=== PATIENT | female | born 1960 | race Caucasian/White ===

== ENCOUNTER 2017-09-18 10:25 | Inpatient (IN) | payer BC, OTHER ==
[2017-09-18 10:33] VITALS: BMI 47.4
[2017-09-18] MEDS ORDERED: SODIUM CHLORIDE 1,000 ML IV STA ×2 (11:23→14:20)
[2017-09-18] MEDS ORDERED: ONDANSETRON 4 MG/2 ML VIAL IVPUSH ONE (11:23)
[2017-09-18] MEDS ORDERED: ONDANSETRON 4 MG/2 ML VIAL ONE (11:54)
--- NOTE | 2017-09-18 11:55 | PDOC ---
History of Present Illness - General Chief Complaint: Pain, Acute Stated Complaint: SOB, LT LEG PAIN, DIARRHEA Time Seen by Provider: 09/18/17 11:07 History Source: Patient Exam Limitations: No Limitations - History of Present Illness Initial Comments: 09/18/17 11:30 57-year-old female presents to the ED for evaluation of nausea and vomiting diarrhea along with weakness and mild shortness of breath on exertion. Patient also complaining of left leg pain. Patient states her left lower leg started to become tender to touch with noted swelling and redness on Friday and then progressed to worsening symptoms including nausea vomiting and left lower quadrant pain that began on Friday. Patient states unable to tolerate by mouth secondary to nausea and states has history of breast cancer which she states is in remission and history of diabetes with a ranging from 250-300 p.m. Timing/Duration: getting worse Severity: moderate Associated Symptoms: reports: loss of appetite, malaise, nausea/vomiting, shortness of breath, weakness Past History - Travel Traveled outside of the country in the last 30 days: No - Past Medical History Allergies/Adverse Reactions: Allergies Allergy/AdvReac Type Severity Reaction Status Date / Time shellfish derived Allergy Swelling Verified 09/18/17 10:29 Home Medications: Ambulatory Orders Carvedilol 25 mg PO DAILY 10/22/14 Folic Acid - 1 mg PO DAILY 10/22/14 Montelukast Na [Singulair -] 10 mg PO HS 10/22/14 Pregabalin [Lyrica -] 75 mg PO DAILY 10/22/14 Cholecalciferol (Vitamin D3) [Vitamin D3] 50,000 unit PO WEEKLY 01/26/16 Tamoxifen Citrate 20 mg PO DAILY 05/24/16 Insulin Regular 25 units SQ ASDIR 09/20/16 Albuterol 0.083% Nebulizer Page [Ventolin 0.083% Nebulizer Soln -] 1 amp NEB DAILY 09/18/17 Atorvastatin Ca [Lipitor] 20 mg PO HS 09/18/17 Budesonide/Formeterol Fumarate [SYMBICORT 160/4.5mcg -] 1 inh PO BID 09/18/17 Enalapril Maleate [Vasotec] 20 mg PO DAILY 09/18/17 Furosemide [Lasix] 40 mg PO DAILY 09/18/17 Hydroxychloroquine Sulfate [Plaquenil] 200 mg PO DAILY 09/18/17 Mesalamine [Pentasa] 500 mg PO DAILY 09/18/17 Methotrexate Sodium [Methotrexate] 2.5 mg PO DAILY 09/18/17 Pantoprazole Sodium [Protonix] 40 mg PO DAILY 09/18/17 Anemia: Yes Asthma: Yes CVA: No COPD: No Diabetes: Yes HTN: Yes Hypercholesterolemia: Yes Other medical history: RA - Surgical History Abdominal Surgery: Yes (cholycystectomy) Appendectomy: Yes Cholecystectomy: Yes - Suicide/Smoking/Psychosocial Hx Smoking History: Never smoked Have you smoked in the past 12 months: No Information on smoking cessation initiated: No Hx Alcohol Use: No Drug/Substance Use Hx: No Substance Use Type: None Patient Lives Alone: No Review of Systems - Review of Systems Able to Perform ROS?: No Constitutional: Yes: Chills, Loss of Appetite, Malaise, Weakness. No: Unintentional Wgt. Loss Respiratory: Yes: SOB with Exertion Cardiac (ROS): No: Symptoms Reported ABD/GI: Yes: Diarrhea, Nausea, Poor Appetite, Poor Fluid Intake, Vomiting, Abdominal cramping. No: Constipated : No: Symptoms Reported Musculoskeletal: No: Symptoms Reported Integumentary: Yes: Erythema Neurological: No: Symptoms reported Endocrine: Yes: See HPI Hematologic/Lymphatic: No: Symptoms Reported *Physical Exam - Vital Signs Last Vital Signs Temp Pulse Resp BP Pulse Ox 98.6 F 77 18 171/75 100 09/18/17 10:31 09/18/17 10:31 09/18/17 10:31 09/18/17 10:31 09/18/17 10:31 - Physical Exam General Appearance: Yes: Nourished, Appropriately Dressed. No: Apparent Distress HEENT: positive: EOMI, FOX, TMs Normal. negative: Pharynx Normal (dry) Neck: positive: Supple Respiratory/Chest: positive: Lungs Clear, Normal Breath Sounds. negative: Respiratory Distress, Accessory Muscle Use Cardiovascular: positive: Regular Rhythm, Regular Rate. negative: Murmur Gastrointestinal/Abdominal: positive: Normal Bowel Sounds, Soft, Distended ( mild generalized), Tenderness (left lower quadrant with deep palpation) Musculoskeletal: negative: CVA Tenderness Extremity: positive: Normal Capillary Refill, Pedal Edema (2+ pitting to left lower extremity. Lower aspect of left leg with erythema and increased warmth) Integumentary: positive: Warm, Erythema Neurologic: positive: Normal Mood/Affect, Motor Strength 08/23 ED Treatment Course - LABORATORY CBC & Chemistry Diagram: 09/18/17 12:00 09/18/17 12:00 Medical Decision Making - Medical Decision Making 09/18/17 12:18 Pt with complaints of nausea vomiting diarrhea left lower quadrant cramping since Friday associated also with left lower extremity redness swelling and tenderness since Friday. Patient exam appears dehydrated and concerning for cellulitis and electrolyte derangement. Patient with history of cancer in secondary to swelling of left lower extremity will rule out DVT. Patient also ordered for abdominal pelvic CT secondary to left lower quadrant pain to rule out colitis diverticulitis or infection/mass. 09/18/17 13:19 Laboratory Tests 04/03/16 04/03/16 04/04/16 07:59 07:59 06:00 WBC Hgb 7.6 L 8.3 L Hct Neutrophils % Sodium Potassium Chloride Carbon Dioxide Anion Gap BUN Creatinine 1.6 H Lactic Acid Magnesium AST ALT Lipase Urine Protein Urine Glucose (UA) Ur Leukocyte Esterase Urine WBC (Auto) Urine RBC (Auto) 04/04/16 09/18/17 09/18/17 06:00 12:00 12:00 WBC 7.3 Hgb 8.1 L Hct 24.8 L Neutrophils % 86.9 H Sodium 139 Potassium 4.1 Chloride 103 Carbon Dioxide 26 Anion Gap 10 BUN 25 H Creatinine 1.5 H 2.3 H Lactic Acid Magnesium 2.5 H AST 22 ALT 21 Lipase 194 Urine Protein Urine Glucose (UA) Ur Leukocyte Esterase Urine WBC (Auto) Urine RBC (Auto) 09/18/17 09/18/17 12:00 12:00 WBC Hgb Hct Neutrophils % Sodium Potassium Chloride Carbon Dioxide Anion Gap BUN Creatinine Lactic Acid 1.5 Magnesium AST ALT Lipase Urine Protein 3+ H Urine Glucose (UA) 3+ H Ur Leukocyte Esterase Negative Urine WBC (Auto) 3 Urine RBC (Auto) None Receiving IV fluids. We'll check BGM for evaluation of glucose. I've also had a VBG and acetone to rule out DKA. 09/18/17 14:23 DVT study negative. Patient ordered for second liter of normal saline secondary to elevated BGM reading out of range. Will wait for acetone and VBG results. Patient will be given a dose of clindamycin IV secondary to cellulitis 09/18/17 14:53 Laboratory Tests 09/18/17 09/18/17 13:55 14:10 VBG pH 7.42 Acetone, Qual Trace H Patient ordered for second BGM and 6 units of regular insulin 09/18/17 17:31 CT shows a partial imaging or nonspecific density within the left breast essentially as discussed above. Umbilical hernia noted without bowel obstruction. Patient with small bilateral adrenal nodules probably represent any adenomas recommending him follow-up imaging 3 months. There is no obvious intrinsic bowel pathology noted. Patient will be admitted to [facility] [place] secondary to acute on chronic renal sufficiency, cellulitis,weakness, and borderline DKA. 09/18/17 17:34 09/18/17 17:43 BGM 405. Patient ordered for another 6 units of insulin. Report given to hospitalist. Patient admitted to [facility] [place] inpatient. *DC/Admit/Observation/Transfer Diagnosis at time of Disposition: Cellulitis, Diabetes, Acute on chronic renal insufficiency, Nausea & vomiting, Umbilical hernia - Discharge Dispostion Decision to Admit order: Yes - Referrals Referrals: Zachary Rogel MD [Primary Care Provider] - - Patient Instructions - Post Discharge Activity
[2017-09-18 12:24] LABS: URINE APPEARANCE CLEAR; URINE BILIRUBIN NEGATIVE (<2.0 mg/dL); URINE BLOOD NEGATIVE (NEGATIVE); URINE COLOR STRAW; URINE GLUCOSE (UA) 3+ (NEGATIVE); URINE KETONE NEGATIVE (NEGATIVE); URINE LEUK ESTERASE NEGATIVE (NEGATIVE); URINE NITRITE NEGATIVE (NEGATIVE); URINE UROBILINOGEN NEGATIVE mg/dL (0.2-1.0)
[2017-09-18 12:30] LABS: URINE PROTEIN 3+ (NEGATIVE)
[2017-09-18 12:32] LABS: EOS % 1.3 % (0-4.5); HEMATOCRIT 24.8 % (32.4-45.2); HEMOGLOBIN 8.1 GM/dL (10.7-15.3); LYMPH % 7.9 % (8-40); MCHC 32.6 g/dl (32.0-36.0); MEAN CELL VOLUME 79.8 fl (80-96); MEAN PLT VOLUME 9.2 fl (7.5-11.1); MONO % 2.9 % (3.8-10.2); NEUT % 86.9 % (42.8-82.8); PLATELET COUNT 180 K/MM3 (134-434); RDW 18.1 % (11.6-15.6); WHITE BLOOD COUNT 7.3 K/mm3 (4.0-10.0)
[2017-09-18 12:37] LABS: EPI CELLS RARE /HPF (FEW)
[2017-09-18 12:55] LABS: ALBUMIN 2.6 g/dl (3.4-5.0); ALK PHOS 66 U/L (45-117); ANION GAP 10 (8-16); BILIRUBIN,TOTAL 0.5 mg/dL (0.2-1.0); BLOOD UREA NITROGEN 25 mg/dL (7-18); CALCIUM 9.1 mg/dL (8.5-10.1); CHLORIDE 103 mmol/L (98-107); CO2 26 mmol/L (21-32); CREATININE 2.3 mg/dL (0.55-1.02); LIPASE 194 U/L (73-393); MAGNESIUM 2.5 mg/dL (1.8-2.4); POTASSIUM 4.1 mmol/L (3.5-5.1); SGOT/AST 22 U/L (15-37); SGPT/ALT 21 U/L (12-78); SODIUM 139 mmol/L (136-145)
[2017-09-18 12:57] LABS: GLUCOSE,RANDOM 452 mg/dL (74-106)
[2017-09-18 14:19] LABS: VENOUS PC02 37.2 mmHg (38-52); VENOUS PH 7.42 (7.32-7.42)
[2017-09-18 14:20] LABS: VENOUS PO2 31.7 mmHg (28-48)
[2017-09-18] MEDS ORDERED: CLINDAMYCIN IVPB 300 MG in DEXTROSE 5%-WATER - 48 ML IVPB ONE (14:29)
[2017-09-18] MEDS ORDERED: CLINDAMYCIN 300 MG PREMIX IVPB 300 MG/50 ML BAG IVPB ONE (14:36)
[2017-09-18] MEDS ORDERED: INSULIN REGULAR HUMAN 100 UNITS/ML *VIAL SQ ONE ×2 (14:37→17:44)
[2017-09-18] MEDS ORDERED: INSULIN REGULAR HUMAN 100 UNITS/ML *VIAL ONE ×2 (16:09→17:56)
--- NOTE | 2017-09-18 17:51 | PDOC ---
*Physical Exam - Vital Signs Last Vital Signs Temp Pulse Resp BP Pulse Ox 98.1 F 68 16 158/70 99 09/18/17 15:02 09/18/17 15:02 09/18/17 15:02 09/18/17 15:02 09/18/17 15:02 - Physical Exam General Appearance: Yes: Appropriately Dressed HEENT: positive: Normal ENT Inspection, Lesions Respiratory/Chest: positive: Lungs Clear, Normal Breath Sounds Cardiovascular: positive: Regular Rhythm, Regular Rate, S1, S2 Gastrointestinal/Abdominal: positive: Normal Bowel Sounds, Soft, Other (obese abd nontender.) Musculoskeletal: positive: Normal Inspection, Other (left leg swelling erythema to mid johnson. left heel ulcer). negative: CVA Tenderness Extremity: positive: Normal Capillary Refill, Swelling, Erythema Integumentary: positive: Rash, Swelling, Other (left heel ulcer, left leg cellulitis changes no crepitus) Neurologic: positive: Fully Oriented, Alert, Normal Mood/Affect ED Treatment Course - LABORATORY CBC & Chemistry Diagram: 09/18/17 12:00 09/18/17 12:00 - ADDITIONAL ORDERS Additional order review: Laboratory Results 09/18/17 09/18/17 09/18/17 14:10 13:55 12:00 VBG pH 7.42 POC VBG pCO2 37.2 L POC VBG pO2 31.7 Mixed VBG HCO3 23.7 Sodium Potassium Chloride Carbon Dioxide Anion Gap BUN Creatinine Creat Clearance w eGFR Random Glucose Lactic Acid 1.5 Calcium Magnesium Total Bilirubin AST ALT Alkaline Phosphatase Total Protein Albumin Lipase Urine Color Urine Appearance Urine pH Ur Specific Atco Urine Protein Urine Glucose (UA) Urine Ketones Urine Blood Urine Nitrite Urine Bilirubin Urine Urobilinogen Ur Leukocyte Esterase Urine WBC (Auto) Urine RBC (Auto) Ur Epithelial Cells Acetone, Qual Trace H 09/18/17 09/18/17 12:00 12:00 VBG pH POC VBG pCO2 POC VBG pO2 Mixed VBG HCO3 Sodium 139 Potassium 4.1 Chloride 103 Carbon Dioxide 26 Anion Gap 10 BUN 25 H Creatinine 2.3 H Creat Clearance w eGFR 21.93 Random Glucose 452 H* Lactic Acid Calcium 9.1 Magnesium 2.5 H Total Bilirubin 0.5 AST 22 ALT 21 Alkaline Phosphatase 66 Total Protein 7.0 Albumin 2.6 L Lipase 194 Urine Color Straw Urine Appearance Clear Urine pH 7.0 Ur Specific Atco 1.013 Urine Protein 3+ H Urine Glucose (UA) 3+ H Urine Ketones Negative Urine Blood Negative Urine Nitrite Negative Urine Bilirubin Negative Urine Urobilinogen Negative Ur Leukocyte Esterase Negative Urine WBC (Auto) 3 Urine RBC (Auto) None Ur Epithelial Cells Rare Acetone, Qual 09/18/17 12:00 RBC 3.10 L MCV 79.8 L MCHC 32.6 RDW 18.1 H MPV 9.2 Neutrophils % 86.9 H Lymphocytes % 7.9 L D Monocytes % 2.9 L Eosinophils % 1.3 Basophils % 1.0 D - Medications Given in the ED: ED Medications Discontinued Medications Generic Name Dose Route Start Last Admin Trade Name Freq PRN Reason Stop Dose Admin Sodium Chloride 1,000 mls @ 1,000 mls/hr 09/18/17 11:23 09/18/17 11:33 Normal Saline - IV 09/18/17 12:22 1,000 mls/hr ASDIR STA Administration Sodium Chloride 1,000 mls @ 1,000 mls/hr 09/18/17 14:20 09/18/17 14:26 Normal Saline - IV 09/18/17 15:19 1,000 mls/hr ASDIR STA Administration Clindamycin Phosphate 300 mg/ 50 mls @ 100 mls/hr 09/18/17 14:29 09/18/17 16: 45 Dextrose IVPB 09/18/17 14:58 Not Given ONCE ONE Protocol Clindamycin Phosphate 300 mg in 50 mls @ 100 mls/hr 09/18/17 14:36 09/18/17 15:15 Cleocin 300 Mg Premix Ivpb IVPB 09/18/17 14:58 100 mls/hr ONCE ONE Administration Protocol Insulin Human Regular 6 units 09/18/17 14:37 09/18/17 16:11 Novolin R Vial *For Ivpush Or Iv Drip Only* SQ 09/18/17 14:38 6 units ONCE ONE Administration Ondansetron HCl 4 mg 09/18/17 11:23 09/18/17 11:33 Zofran Injection IVPUSH 09/18/17 11:24 4 mg ONCE ONE Administration Oxycodone/Acetaminophen 1 combo 09/18/17 13:52 09/18/17 13:55 Percocet 5/325 - PO 09/18/17 13:53 1 combo ONCE ONE Administration Medical Decision Making - Medical Decision Making 09/18/17 17:45 57 yo F h/o HTN HLD DM obesity asthma here with 4 days n/v/d. pt states did not take insulin today due to inability to eat. also c/o left leg swelling and redness for few days. has had a left heel ulcer. no f/c no mod factors. no cp no sob. on exam pt awake alert abd soft nontender. obese. ext left leg erythema, left heel ulcer. 2 + dp/ pt pulses. plan treat for hyperglycemia, infection abd ct a/p pt seen and examined with Renata Culver, agree with her assessment and plan. *DC/Admit/Observation/Transfer Diagnosis at time of Disposition: Cellulitis, Diabetes, Acute on chronic renal insufficiency, Nausea & vomiting, Umbilical hernia - Referrals Referrals: Zachary Rogel MD [Primary Care Provider] - - Patient Instructions - Post Discharge Activity
--- NOTE | 2017-09-18 17:59 | HP ---
CHIEF COMPLAINT: nausea, vomiting, diarrhea PCP: none HISTORY OF PRESENT ILLNESS: This is a 57 year old female with PMHx of breast cancer s/p radiation, DM, HTN, hyperlipidemia, asthma, rheumatoid arthritis, who presented to the ED with nausea, vomiting, diarrhea x4 days and left leg erythema. The patient denies any sick contacts. She reports that about 4 days ago she began experiencing non- bloody vomitus and diarrhea. The patient reports that since she has been vomiting she has not taken any of her medications or insulins for 4 days. She also reports that on August 02 she had a pedicure and they removed callus on her b/l heels. She states since then, she has had a left heel non-healing wound and since this past weekend has noticed erythema moving up her left leg. She denies any fever or chills. She denies any chest pain, palpitations, headache, dizziness, syncope, urinary symptoms. ER course was notable for: (1) Temp 98.6, pulse 77, BP 171/75, resp 18, O2 100% on RA (2) Hgb 8.1, Cr 2.3, glucose 451 (3) LLE doppler negative for DVT (4) CTAP Recent Travel: denies PAST MEDICAL HISTORY: as above Social History: Smoking: denies Alcohol: denies Drugs: denies Family History: Allergies shellfish derived Allergy (Verified 09/18/17 10:29) Swelling HOME MEDICATIONS: Home Medications Medication Instructions Recorded Carvedilol 25 mg PO DAILY 10/22/14 Folic Acid - 1 mg PO DAILY 10/22/14 Montelukast Na [Singulair -] 10 mg PO HS 10/22/14 Pregabalin [Lyrica -] 75 mg PO DAILY 10/22/14 Cholecalciferol (Vitamin D3) 50,000 unit PO WEEKLY 01/26/16 [Vitamin D3] Tamoxifen Citrate 20 mg PO DAILY 05/24/16 Insulin Regular 25 units SQ ASDIR 09/20/16 Albuterol 0.083% Nebulizer Page 1 amp NEB DAILY 09/18/17 [Ventolin 0.083% Nebulizer Soln -] Atorvastatin Ca [Lipitor] 20 mg PO HS 09/18/17 Budesonide/Formeterol Fumarate 1 inh PO BID 09/18/17 [SYMBICORT 160/4.5mcg -] Enalapril Maleate [Vasotec] 20 mg PO DAILY 09/18/17 Furosemide [Lasix] 40 mg PO DAILY 09/18/17 Hydroxychloroquine Sulfate 200 mg PO DAILY 09/18/17 [Plaquenil] Mesalamine [Pentasa] 500 mg PO DAILY 09/18/17 Methotrexate Sodium [Methotrexate] 2.5 mg PO DAILY 09/18/17 Pantoprazole Sodium [Protonix] 40 mg PO DAILY 09/18/17 REVIEW OF SYSTEMS CONSTITUTIONAL: Absent: fever, chills, diaphoresis, generalized weakness, malaise, loss of appetite, weight change HEENT: Absent: rhinorrhea, nasal congestion, throat pain, throat swelling, difficulty swallowing, mouth swelling, ear pain, eye pain, visual changes CARDIOVASCULAR: Absent: chest pain, syncope, palpitations, irregular heart rate, lightheadedness , peripheral edema RESPIRATORY: Absent: cough, shortness of breath, dyspnea with exertion, orthopnea, wheezing, stridor, hemoptysis GASTROINTESTINAL: Absent: abdominal pain, abdominal distension, nausea, vomiting, diarrhea, constipation, melena, hematochezia GENITOURINARY: Absent: dysuria, frequency, urgency, hesitancy, hematuria, flank pain, genital pain MUSCULOSKELETAL: Absent: myalgia, arthralgia, joint swelling, back pain, neck pain SKIN: Absent: rash, itching, pallor HEMATOLOGIC/IMMUNOLOGIC: Absent: easy bleeding, easy bruising, lymphadenopathy, frequent infections ENDOCRINE: Absent: unexplained weight gain, unexplained weight loss, heat intolerance, cold intolerance NEUROLOGIC: Absent: headache, focal weakness or paresthesias, dizziness, unsteady gait, seizure, mental status changes, bladder or bowel incontinence PSYCHIATRIC: Absent: anxiety, depression, suicidal or homicidal ideation, hallucinations. PHYSICAL EXAMINATION Vital Signs - 24 hr 09/18/17 09/18/17 10:31 15:02 Temperature 98.6 F 98.1 F Pulse Rate 77 Pulse Rate [ 68 Apical] Respiratory 18 16 Rate Blood Pressure 171/75 Blood Pressure 158/70 [Left Arm] O2 Sat by Pulse 100 99 Oximetry (%) GENERAL: Awake, alert, and fully oriented, in no acute distress, obese HEAD: Normal with no signs of trauma. EYES: Pupils equal, round and reactive to light, extraocular movements intact, sclera anicteric, conjunctiva clear. No lid lag. EARS, NOSE, THROAT: Ears normal, nares patent, oropharynx clear without exudates. Moist mucous membranes. LUNGS: Breath sounds equal, clear to auscultation bilaterally. No wheezes, and no crackles. No accessory muscle use. HEART: Regular rate and rhythm, normal S1 and S2 ABDOMEN: Soft, nontender, normoactive bowel sounds, no guarding, no rebound, no masses. MUSCULOSKELETAL: Normal range of motion at all joints. No bony deformities or tenderness. No CVA tenderness. UPPER EXTREMITIES: 2+ pulses, warm, well-perfused. No cyanosis. No clubbing. No peripheral edema. LOWER EXTREMITIES: LLE erythema. Left heel with callus, no drainage noted. 2+ B/ l lower extremity pitting edema. 2+ pulses, warm NEUROLOGICAL: Cranial nerves II-XII intact. Normal speech. PSYCHIATRIC: Cooperative. Good eye contact. Appropriate mood and affect. SKIN: Warm, dry, normal turgor, no rashes or lesions noted, normal capillary refill. Laboratory Results - last 24 hr 09/18/17 09/18/17 09/18/17 12:00 12:00 12:00 WBC 7.3 RBC 3.10 L Hgb 8.1 L Hct 24.8 L MCV 79.8 L MCH 26.0 MCHC 32.6 RDW 18.1 H Plt Count 180 D MPV 9.2 Neutrophils % 86.9 H Lymphocytes % 7.9 L D Monocytes % 2.9 L Eosinophils % 1.3 Basophils % 1.0 D Nucleated RBC % 0 VBG pH POC VBG pCO2 POC VBG pO2 Mixed VBG HCO3 Sodium 139 Potassium 4.1 Chloride 103 Carbon Dioxide 26 Anion Gap 10 BUN 25 H Creatinine 2.3 H Creat Clearance w eGFR 21.93 POC Glucometer Random Glucose 452 H* Lactic Acid Calcium 9.1 Magnesium 2.5 H Total Bilirubin 0.5 AST 22 ALT 21 Alkaline Phosphatase 66 Total Protein 7.0 Albumin 2.6 L Lipase 194 Urine Color Straw Urine Appearance Clear Urine pH 7.0 Ur Specific [place] 1.013 Urine Protein 3+ H Urine Glucose (UA) 3+ H Urine Ketones Negative Urine Blood Negative Urine Nitrite Negative Urine Bilirubin Negative Urine Urobilinogen Negative Ur Leukocyte Esterase Negative Urine WBC (Auto) 3 Urine RBC (Auto) None Ur Epithelial Cells Rare Acetone, Qual 09/18/17 09/18/17 09/18/17 12:00 13:55 14:10 WBC RBC Hgb Hct MCV MCH MCHC RDW Plt Count MPV Neutrophils % Lymphocytes % Monocytes % Eosinophils % Basophils % Nucleated RBC % VBG pH 7.42 POC VBG pCO2 37.2 L POC VBG pO2 31.7 Mixed VBG HCO3 23.7 Sodium Potassium Chloride Carbon Dioxide Anion Gap BUN Creatinine Creat Clearance w eGFR POC Glucometer Random Glucose Lactic Acid 1.5 Calcium Magnesium Total Bilirubin AST ALT Alkaline Phosphatase Total Protein Albumin Lipase Urine Color Urine Appearance Urine pH Ur Specific [place] Urine Protein Urine Glucose (UA) Urine Ketones Urine Blood Urine Nitrite Urine Bilirubin Urine Urobilinogen Ur Leukocyte Esterase Urine WBC (Auto) Urine RBC (Auto) Ur Epithelial Cells Acetone, Qual Trace H 09/18/17 17:34 WBC RBC Hgb Hct MCV MCH MCHC RDW Plt Count MPV Neutrophils % Lymphocytes % Monocytes % Eosinophils % Basophils % Nucleated RBC % VBG pH POC VBG pCO2 POC VBG pO2 Mixed VBG HCO3 Sodium Potassium Chloride Carbon Dioxide Anion Gap BUN Creatinine Creat Clearance w eGFR POC Glucometer > 400 Random Glucose Lactic Acid Calcium Magnesium Total Bilirubin AST ALT Alkaline Phosphatase Total Protein Albumin Lipase Urine Color Urine Appearance Urine pH Ur Specific [place] Urine Protein Urine Glucose (UA) Urine Ketones Urine Blood Urine Nitrite Urine Bilirubin Urine Urobilinogen Ur Leukocyte Esterase Urine WBC (Auto) Urine RBC (Auto) Ur Epithelial Cells Acetone, Qual Assessment: This is a 57 year old female with PMHx of breast cancer s/p radiation, DM, HTN, hyperlipidemia, asthma, rheumatoid arthritis, who presented to the ED with nausea, vomiting, diarrhea x4 days and left leg erythema. Plan: 1) Nausea/vomiting/diarrhea - Likely gastroenteritis - F/u stool cultures - Clear liquid diet - Continue to monitor 2) [place] on CKD? - Baseline Cr around 1.7 from 2016, may have worsened since then - F/u urine electrolytes - Hold enalapril for now given renal function - F/u nephrology consult 3) Left leg cellulitis - Likely 2/2 pedicure she had on August 02 - Received Clindamycin in the ED - Patient will be evaluated by Dr. Clarita louie for further abx recommendations 3) Chronic anemia - Monitor H/H Visit type - Emergency Visit Emergency Visit: Yes ED Registration Date: 09/18/17 Care time: The patient presented to the Emergency Department on the above date and was hospitalized for further evaluation of their emergent condition. - New Patient This patient is new to me today: No - Critical Care Critical Care patient: No Hospitalist Screening - Colonoscopy Questionnaire Colonoscopy Questionnaire: Colonoscopy Questionnaire - Patient: 50 - 75 years old and never had a screening colonoscopy: Unknown History of colon or rectal polyps, or CA: Unknown History of IBD, Crohn's disease or UC: Unknown History of abdominal radiation therapy as a child: Unknown - Relative: 1 with colon or rectal CA, or polyps at age 60 or younger: Unknown Colon or rectal CA diagnosed at age 45 or younger: Unknown Multiple relatives with colon or rectal CA: Unknown - Outcome: Screening Result: Negative Screen
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
[2017-09-18] MEDS ORDERED: ERTAPENEM SODIUM 1 GM in SODIUM CHLORIDE 50 ML IVPB SCH (20:00)
[2017-09-18] MEDS ORDERED: MONTELUKAST NA 10 MG TABLET ONE (22:31)
[2017-09-18] MEDS ORDERED: ATORVASTATIN CA 40 MG TABLET (FP) ONE (22:31)
[2017-09-18] MEDS: MONTELUKAST NA 10 MG TABLET PO SCH (22:36)
[2017-09-18] MEDS: ATORVASTATIN CA 20 MG TABLET (FP) PO SCH (22:36)
[2017-09-18] MEDS: BUDESONIDE/FORMETEROL FUMARATE 160/4.5 mcg INHALER IH SCH (22:47)
[2017-09-19] MEDS ORDERED: oxyCODONE HCL 5 MG TABLET PO PRN (03:26)
[2017-09-19] MEDS: oxyCODONE HCL 5 MG TABLET PO PRN ×2 (03:52→10:51)
[2017-09-19 07:27] LABS: BASO % 0.9 % (0-2.0); EOS % 3.7 % (0-4.5); HEMATOCRIT 20.3 % (32.4-45.2); LYMPH % 10.4 % (8-40); MCH 26.8 pg (25.7-33.7); MCHC 33.4 g/dl (32.0-36.0); MEAN CELL VOLUME 80.1 fl (80-96); MEAN PLT VOLUME 8.8 fl (7.5-11.1); MONO % 3.3 % (3.8-10.2); NEUT % 81.7 % (42.8-82.8); PLATELET COUNT 163 K/MM3 (134-434); RBC 2.53 M/mm3 (3.60-5.2); WHITE BLOOD COUNT 7.5 K/mm3 (4.0-10.0)
[2017-09-19 07:37] LABS: HEMOGLOBIN 6.8 GM/dL (10.7-15.3)
[2017-09-19 08:43] LABS: CHLORIDE 107 mmol/L (98-107); POTASSIUM 3.8 mmol/L (3.5-5.1); SODIUM 141 mmol/L (136-145)
[2017-09-19 08:45] LABS: HEMATOCRIT 21.2 % (32.4-45.2); MCH 26.4 pg (25.7-33.7); MEAN PLT VOLUME 8.7 fl (7.5-11.1); PLATELET COUNT 166 K/MM3 (134-434); RBC 2.65 M/mm3 (3.60-5.2); RDW 18.2 % (11.6-15.6); WHITE BLOOD COUNT 7.4 K/mm3 (4.0-10.0)
[2017-09-19 09:08] LABS: ALBUMIN 2.2 g/dl (3.4-5.0); ALK PHOS 57 U/L (45-117); ANION GAP 10 (8-16); BILIRUBIN,TOTAL 0.4 mg/dL (0.2-1.0); BLOOD UREA NITROGEN 19 mg/dL (7-18); CALCIUM 8.7 mg/dL (8.5-10.1); CO2 24 mmol/L (21-32); CREATININE 1.9 mg/dL (0.55-1.02); GLUCOSE,RANDOM 300 mg/dL (74-106); SGOT/AST 21 U/L (15-37); SGPT/ALT 18 U/L (12-78); TOT PROT 6.1 g/dl (6.4-8.2)
[2017-09-19] MEDS: INSULIN SLIDING SCALE (NOVOLOG) 1 VIAL SQ SCH ×4 (09:53→21:42)
--- NOTE | 2017-09-19 09:53 | PN ---
Progress Note (short form) - Note Progress Note: Subjective: The patient was seen and examined at the bedside, she reports one episode of diarrhea this morning. She states improvement in her lower extremity swelling and erythema. She denies any nausea or vomiting. Current Medications Generic Name Dose Route Start Last Admin Trade Name Freq PRN Reason Stop Dose Admin Albuterol Sulfate 1 amp 09/19/17 10:00 Ventolin 0.083% Nebulizer Soln - NEB DAILY [facility] Atorvastatin Calcium 20 mg 09/18/17 22:00 09/18/17 22:36 Lipitor - PO 20 mg HS [facility] Administration Bacitracin 1 applic 09/19/17 10:00 Bacitracin - TP DAILY [facility] Budesonide/Formoterol Fumarate 1 puff 09/18/17 22:00 09/18/17 22:47 Symbicort 160/4.5mcg - IH 1 pfu BID [facility] Administration Carvedilol 25 mg 09/19/17 10:00 Coreg - PO DAILY [facility] Docusate Sodium 100 mg 09/19/17 10:00 Colace - PO DAILY [facility] Folic Acid 1 mg 09/19/17 10:00 Folic Acid - PO DAILY [facility] Furosemide 40 mg 09/19/17 10:00 Lasix - PO DAILY [facility] Hydroxychloroquine Sulfate 200 mg 09/19/17 10:00 Plaquenil - PO DAILY [facility] Ertapenem 1 gm/ Sodium 100 mls @ 100 mls/hr 09/18/17 20:00 Chloride IVPB DAILY [facility] Protocol Insulin Aspart 1 vial 09/19/17 11:00 Novolog Vial Sliding Scale - SQ ACHS [facility] Protocol Methotrexate 20 mg 09/21/17 10:00 Mexate - PO Q7D [facility] Montelukast Sodium 10 mg 09/18/17 22:00 09/18/17 22:36 Singulair - PO 10 mg HS [facility] Administration Non-Formulary Medication 500 mg 09/19/17 10:00 Mesalamine [Pentasa] PO DAILY [facility] Oxycodone HCl 5 mg 09/19/17 03:46 09/19/17 03:52 Roxicodone - PO 5 mg Q6H PRN Administration PAIN LEVEL 7 - 10 Pantoprazole Sodium 40 mg 09/19/17 10:00 Protonix - PO DAILY [facility] Pregabalin 75 mg 09/19/17 10:00 Lyrica - PO DAILY [facility] Tamoxifen Citrate 20 mg 09/19/17 10:00 Tamoxifen Citrate PO DAILY [facility] Objective: Vital Signs Period Temp Pulse Resp BP Sys/Ronquillo Pulse Ox Last 24 Hr 98.0 F-99.1 F 68-86 16-20 137-171/58-75 94-100 Physical Exam: General: NAD, A&Ox3 Lungs: CTA bilaterally Heart: RRR, S1S2 Abd: Soft, non-tender, non-distended. Normoactive bowel sounds Ext: B/l lower extremity 1+ pitting edema. Improvement in LLE erythema, remains tender on johnson and foot. Left heel callus with no fluctuance or bogginess Neuro: No focal deficits CBCD WBC 7.4 K/mm3 (4.0-10.0) 09/19/17 08:12 RBC 2.65 M/mm3 (3.60-5.2) L 09/19/17 08:12 Hgb 7.0 GM/dL (10.7-15.3) L 09/19/17 08:12 Hct 21.2 % (32.4-45.2) L 09/19/17 08:12 MCV 80.0 fl (80-96) 09/19/17 08:12 MCHC 33.0 g/dl (32.0-36.0) 09/19/17 08:12 RDW 18.2 % (11.6-15.6) H 09/19/17 08:12 Plt Count 166 K/MM3 (134-434) 09/19/17 08:12 MPV 8.7 fl (7.5-11.1) 09/19/17 08:12 CMP Sodium 141 mmol/L (136-145) 09/19/17 06:30 Potassium 3.8 mmol/L (3.5-5.1) 09/19/17 06:30 Chloride 107 mmol/L (98-107) 09/19/17 06:30 Carbon Dioxide 24 mmol/L (21-32) 09/19/17 06:30 Anion Gap 10 (8-16) 09/19/17 06:30 BUN 19 mg/dL (7-18) H 09/19/17 06:30 Creatinine 1.9 mg/dL (0.55-1.02) H 09/19/17 06:30 Creat Clearance w eGFR 27.34 (>60) 09/19/17 06:30 Random Glucose 300 mg/dL (74-106) H 09/19/17 06:30 Calcium 8.7 mg/dL (8.5-10.1) 09/19/17 06:30 Total Bilirubin 0.4 mg/dL (0.2-1.0) 09/19/17 06:30 AST 21 U/L (15-37) 09/19/17 06:30 ALT 18 U/L (12-78) 09/19/17 06:30 Alkaline Phosphatase 57 U/L (45-117) 09/19/17 06:30 Total Protein 6.1 g/dl (6.4-8.2) L 09/19/17 06:30 Albumin 2.2 g/dl (3.4-5.0) L 09/19/17 06:30 Assessment: This is a 57 year old female with PMHx of breast cancer s/p radiation, DM, HTN, hyperlipidemia, asthma, rheumatoid arthritis, who presented to the ED with nausea, vomiting, diarrhea x4 days and left leg erythema. Plan: 1) Nausea/vomiting/diarrhea - Likely gastroenteritis - F/u stool cultures - Denies any nausea or vomiting - Advance diet as tolerated - Continue to monitor 2) [place] on CKD? - Baseline Cr around 1.7 from 2015, may have worsened since then - Cr 1.9 today - F/u urine electrolytes - Hold enalapril for now given renal function - F/u nephrology consult 3) Left leg cellulitis - Likely 2/2 pedicure she had on August 02 - Received Clindamycin in the ED - Continue Ertapenem 3) Chronic anemia - Hgb 6.8 this AM, repeat was 7 - Recheck this afternoon, if Hgb <7, will order PRBC transfusion 4) DM - BGM ACHS - ISS ACHS 5) Asthma - Continue prn albuterol neb - Continue Symbicort 6) RA - Continue home medications 7) F/E/N: - Full liquid diet, advance as tolerated - Monitor electrolytes 8) Prophylaxis: - SCDs bilaterally - Will start chemical DVT prophylaxis once repeat CBC shows stable Hgb 9) Dispo: - Requires continued inpatient care CODE STATUS: FULL CODE Visit type - Emergency Visit Emergency Visit: Yes ED Registration Date: 09/18/17 Care time: The patient presented to the Emergency Department on the above date and was hospitalized for further evaluation of their emergent condition. - New Patient This patient is new to me today: No - Critical Care Critical Care patient: No
[2017-09-19] MEDS ORDERED: CARVEDILOL 25 MG TABLET (FP) PO SCH (10:00)
[2017-09-19] MEDS ORDERED: ENALAPRIL MALEATE 10 MG TABLET (FP) PO SCH (10:00)
[2017-09-19] MEDS ORDERED: PREGABALIN 50 MG CAPSULE PO SCH (10:00)
[2017-09-19] MEDS ORDERED: HYDROXYCHLOROQUINE SO4 200 MG TABLET (FP) PO SCH (10:00)
[2017-09-19] MEDS ORDERED: PATIENT'S OWN MEDICATION (NON-FORMULARY) (Mesalamine [Pentasa] 500 MG) PO SCH (10:00)
[2017-09-19] MEDS ORDERED: ALBUTEROL SO4 0.083% IH SOL 2.5 MG/3 ML VIAL.NEB. NEB SCH (10:00)
[2017-09-19] MEDS ORDERED: METHOTREXATE 2.5 MG TABLET PO SCH (10:00)
[2017-09-19] MEDS ORDERED: FUROSEMIDE 40 MG TABLET (FP) PO SCH ×2 (10:00→22:00)
[2017-09-19] MEDS ORDERED: PT OWN MED DRAWER 7, Y5N ONE (10:37)
[2017-09-19] MEDS ORDERED: PREGABALIN 75 MG CAPSULE PO SCH (10:40)
[2017-09-19] MEDS: BACITRACIN 15 GM TUBE TOPICAL OINTMENT TP SCH (10:46)
[2017-09-19] MEDS: DOCUSATE SODIUM 100 MG CAPSULE (FP) PO SCH (10:47)
[2017-09-19] MEDS: FOLIC ACID 1 MG TABLET (FP) PO SCH (10:47)
[2017-09-19] MEDS: PANTOPRAZOLE 40 MG TABLET (FP) PO SCH (10:48)
[2017-09-19] MEDS: BUDESONIDE/FORMETEROL FUMARATE 160/4.5 mcg INHALER IH SCH ×2 (10:53→21:26)
[2017-09-19 12:37] LABS: URINE CREATININE 75.3 mg/dL (20-320)
[2017-09-19 14:13] LABS: HEMATOCRIT 21.9 % (32.4-45.2); HEMOGLOBIN 7.1 GM/dL (10.7-15.3); MCHC 32.2 g/dl (32.0-36.0); MEAN CELL VOLUME 80.6 fl (80-96); MEAN PLT VOLUME 9.1 fl (7.5-11.1); PLATELET COUNT 166 K/MM3 (134-434); RBC 2.72 M/mm3 (3.60-5.2); RDW 18.4 % (11.6-15.6); WHITE BLOOD COUNT 6.6 K/mm3 (4.0-10.0)
--- NOTE | 2017-09-19 14:32 | PN ---
Progress Note, Physician History of Present Illness: leg starting to look much better swelling has decreased patient feels better still pain - Current Medication List Current Medications: Active Medications Albuterol Sulfate (Ventolin 0.083% Nebulizer Soln -) 1 amp NEB Q6H PRN PRN Reason: SHORT OF BREATH/WHEEZING Atorvastatin Calcium (Lipitor -) 20 mg PO HS [facility] Last Admin: 09/18/17 22:36 Dose: 20 mg Bacitracin (Bacitracin -) 1 applic TP DAILY [facility] Last Admin: 09/19/17 10:46 Dose: 1 applic Budesonide/Formoterol Fumarate (Symbicort 160/4.5mcg -) 1 puff IH BID [facility] Last Admin: 09/19/17 10:53 Dose: 1 pfu Carvedilol (Coreg -) 25 mg PO BID [facility] Docusate Sodium (Colace -) 100 mg PO DAILY [facility] Last Admin: 09/19/17 10:47 Dose: Not Given Folic Acid (Folic Acid -) 1 mg PO DAILY [facility] Last Admin: 09/19/17 10:47 Dose: 1 mg Furosemide (Lasix -) 40 mg PO BID [facility] Hydroxychloroquine Sulfate (Plaquenil -) 400 mg PO BID [facility] Ertapenem 1 gm/ Sodium (Chloride) 100 mls @ 100 mls/hr IVPB DAILY [facility]; Protocol Insulin Aspart (Novolog Vial Sliding Scale -) 1 vial SQ ACHS [facility]; Protocol Last Admin: 09/19/17 13:14 Dose: 10 units Methotrexate (Mexate -) 20 mg PO Gerardo@1000 [facility] Montelukast Sodium (Singulair -) 10 mg PO HS [facility] Last Admin: 09/18/17 22:36 Dose: 10 mg Non-Formulary Medication (Mesalamine [Pentasa]) 1,000 mg PO QID [facility] Oxycodone HCl (Roxicodone -) 5 mg PO Q6H PRN PRN Reason: PAIN LEVEL 7 - 10 Last Admin: 09/19/17 10:51 Dose: 5 mg Pantoprazole Sodium (Protonix -) 40 mg PO DAILY [facility] Last Admin: 09/19/17 10:48 Dose: 40 mg Pregabalin (Lyrica -) 75 mg PO TID [facility] Tamoxifen Citrate (Tamoxifen Citrate) 20 mg PO DAILY [facility] - Objective Vital Signs: Vital Signs Temperature 98.5 F 09/19/17 13:45 Pulse Rate 68 06/01/18 13:45 Respiratory Rate 20 09/19/17 13:45 Blood Pressure 134/54 09/19/17 13:45 O2 Sat by Pulse Oximetry (%) 94 L 09/19/17 00:33 Constitutional: Yes: Calm, Mild Distress, Obese Cardiovascular: Yes: S1, S2 Respiratory: Yes: Regular, CTA Bilaterally Gastrointestinal: Yes: Normal Bowel Sounds, Soft Musculoskeletal: Yes: WNL Extremities: Yes: Calf Tenderness, Erythema, Other Integumentary: Yes: Erythema (improving) Neurological: Yes: Alert, Oriented Psychiatric: Yes: Alert, Oriented Labs: CBC, BMP 09/19/17 13:45 09/19/17 06:30 Assessment/Plan 57 year old female with PMHx of breast cancer s/p radiation, DM, HTN, hyperlipidemia, asthma, rheumatoid arthritis, who presented to the ED with nausea, vomiting, diarrhea x4 days and left leg erythema. Nausea/vomiting/diarrhea [place] Left leg cellulitis Chronic anemia edema of the left leg plan continue ertapenam elevation of the leg running very low h and h rest as per the team
[2017-09-19] MEDS: ERTAPENEM SODIUM 1 GM in SODIUM CHLORIDE 100 ML IVPB SCH (14:40)
[2017-09-19] MEDS: TAMOXIFEN CITRATE 10 MG TABLET PO SCH (14:41)
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
[2017-09-19] MEDS: PREGABALIN 75 MG CAPSULE PO SCH ×2 (15:13→21:25)
[2017-09-19] MEDS: ENALAPRIL MALEATE 10 MG TABLET (FP) PO SCH ×2 (16:29→21:25)
--- NOTE | 2017-09-19 16:53 | PN ---
Teaching Attending Note Name of Resident: Jayson Castaneda (Nephrology) ATTENDING PHYSICIAN STATEMENT I saw and evaluated the patient. I reviewed the resident's note and discussed the case with the resident. I agree with the resident's findings and plan as documented. SUBJECTIVE: This is a 57 year old woman with PMhx of CKD Stage 3 (baseline Cr ~1.7), IDDM, Hypertension, Breast Ca on Tamoxifin, RA who presented with LE redness and pain and N/V and found to have [place] on CKD with Cr of 2.3. Pt follows with a outpatient professional security officer at [facility]. Reports feeling better s/p IVF and Abx. No CP , sob, Abd pain. No dysuria. had diarrhea this am. ACEi and Lasix were initially held. Denies any NSAID use or contrast exposure. PMhx: as above Family Hx: NC social HX: No T/A/D ROS: as per HPI Home Medications Medication Instructions Recorded Carvedilol 25 mg PO BID 10/22/14 Folic Acid - 2 mg PO DAILY 10/22/14 Montelukast Na [Singulair -] 10 mg PO HS 10/22/14 Pregabalin [Lyrica -] 75 mg PO TID 10/22/14 Cholecalciferol (Vitamin D3) 50,000 unit PO WEEKLY 01/26/16 [Vitamin D3] Tamoxifen Citrate 20 mg PO DAILY 05/24/16 Insulin Regular 25 units SQ ASDIR 09/20/16 Albuterol 0.083% Nebulizer Page 1 amp NEB DAILY 09/18/17 [Ventolin 0.083% Nebulizer Soln -] Atorvastatin Ca [Lipitor] 20 mg PO HS 09/18/17 Budesonide/Formeterol Fumarate 1 inh PO BID 09/18/17 [SYMBICORT 160/4.5mcg -] Enalapril Maleate [Vasotec] 20 mg PO BID 09/18/17 Furosemide [Lasix] 80 mg PO BID 09/18/17 Hydroxychloroquine Sulfate 400 mg PO BID 09/18/17 [Plaquenil] Mesalamine [Pentasa] 1,000 mg PO QID 09/18/17 Methotrexate Sodium [Methotrexate] 20 mg PO WEEKLY 09/18/17 Pantoprazole Sodium [Protonix] 40 mg PO DAILY 09/18/17 Potassium Chloride 10 meq PO DAILY 09/19/17 OBJECTIVE: Vital Signs Temperature 98.5 F 09/19/17 13:45 Pulse Rate 68 09/19/17 13:45 Respiratory Rate 20 09/19/17 13:45 Blood Pressure 134/54 09/19/17 13:45 O2 Sat by Pulse Oximetry (%) 94 L 09/19/17 00:33 Intake & Output 09/16/17 09/17/17 09/18/17 09/19/17 23:59 23:59 23:59 23:59 Intake Total 380 Balance 380 Weight 133.356 kg 133.356 kg NAD awake and alert No JVD, Neck supple Dry MM RRR Obese NT/ND + LE edema CBC, BMP 09/19/17 13:45 09/19/17 06:30 Current Medications Albuterol Sulfate (Ventolin 0.083% Nebulizer Soln -) 1 amp NEB Q6H PRN PRN Reason: SHORT OF BREATH/WHEEZING Atorvastatin Calcium (Lipitor -) 20 mg PO HS [facility] Last Admin: 09/18/17 22:36 Dose: 20 mg Bacitracin (Bacitracin -) 1 applic TP DAILY [facility] Last Admin: 09/19/17 10:46 Dose: 1 applic Budesonide/Formoterol Fumarate (Symbicort 160/4.5mcg -) 1 puff IH BID [facility] Last Admin: 09/19/17 10:53 Dose: 1 pfu Carvedilol (Coreg -) 25 mg PO BID [facility] Docusate Sodium (Colace -) 100 mg PO DAILY [facility] Last Admin: 09/19/17 10:47 Dose: Not Given Enalapril Maleate (Vasotec -) 20 mg PO BID [facility] Last Admin: 09/19/17 16:29 Dose: 20 mg Folic Acid (Folic Acid -) 1 mg PO DAILY [facility] Last Admin: 09/19/17 10:47 Dose: 1 mg Hydroxychloroquine Sulfate (Plaquenil -) 400 mg PO BID [facility] Ertapenem 1 gm/ Sodium (Chloride) 100 mls @ 100 mls/hr IVPB DAILY [facility]; Protocol Last Admin: 09/19/17 14:40 Dose: 100 mls/hr Insulin Aspart (Novolog Vial Sliding Scale -) 1 vial SQ ACHS [facility]; Protocol Last Admin: 09/19/17 16:33 Dose: 8 units Methotrexate (Mexate -) 20 mg PO Gerardo@1000 [facility] Montelukast Sodium (Singulair -) 10 mg PO HS [facility] Last Admin: 09/18/17 22:36 Dose: 10 mg Non-Formulary Medication (Mesalamine [Pentasa]) 1,000 mg PO QID [facility] Oxycodone HCl (Roxicodone -) 5 mg PO Q6H PRN PRN Reason: PAIN LEVEL 7 - 10 Last Admin: 09/19/17 10:51 Dose: 5 mg Pantoprazole Sodium (Protonix -) 40 mg PO DAILY [facility] Last Admin: 09/19/17 10:48 Dose: 40 mg Pregabalin (Lyrica -) 75 mg PO TID [facility] Last Admin: 09/19/17 15:13 Dose: Not Given Tamoxifen Citrate (Tamoxifen Citrate) 20 mg PO DAILY [facility] Last Admin: 09/19/17 14:41 Dose: 20 mg ASSESSMENT AND PLAN: 57 year old woman with PMhx of CKD Stage 3 (baseline Cr ~1.7), IDDM, Hypertension, Breast Ca on Tamoxifin, RA who presented with LE redness and pain and N/V and found to have [place] on CKD with Cr of 2.3. #[place] on CKD #CKD Stage 3 #Proteinuria #LE cellulitis #Hypertension #LE edema Etiology of [place] likely due to intravascular volume depletion +/- gloumelar hypoprofusion in setting of diarrhea/infection/MAGALY/diuretics renal function now near baseline can restart ACEi, withhold diuretics for now as per had diarrhea continue Abx as per ID check urine studies goal BP < 140/90, monitor on ACEi Thank you Will follow Riley Rashid DO
[2017-09-19] MEDS: ACETAMINOPHEN 650 MG/20.3 ML ORAL SOLUTION (CUPS) PO PRN (20:48)
[2017-09-19] MEDS: HYDROXYCHLOROQUINE SO4 200 MG TABLET (FP) PO SCH (21:24)
[2017-09-19] MEDS: MONTELUKAST NA 10 MG TABLET PO SCH (21:24)
[2017-09-19] MEDS: ATORVASTATIN CA 20 MG TABLET (FP) PO SCH (21:25)
[2017-09-19] MEDS: CARVEDILOL 25 MG TABLET (FP) PO SCH (21:25)
[2017-09-20] MEDS: oxyCODONE HCL 5 MG TABLET PO PRN ×2 (00:17→22:05)
[2017-09-20] MEDS: PREGABALIN 75 MG CAPSULE PO SCH ×3 (05:36→22:01)
[2017-09-20] MEDS: INSULIN SLIDING SCALE (NOVOLOG) 1 VIAL SQ SCH ×4 (06:03→22:03)
[2017-09-20 08:11] LABS: SERUM IRON SATURATION 18 % (15-55); TOTAL IRON BINDING CAPACITY 175 ug/dL (250-450); TRANSFERRIN 145 mg/dL (200-370); UIBC 144 ug/dL (131-425)
[2017-09-20 08:14] LABS: BASO % 1.3 % (0-2.0); HEMATOCRIT 20.7 % (32.4-45.2); MCH 26.3 pg (25.7-33.7); MCHC 32.7 g/dl (32.0-36.0); MEAN CELL VOLUME 80.4 fl (80-96); MEAN PLT VOLUME 8.6 fl (7.5-11.1); MONO % 7.8 % (3.8-10.2); NEUT % 70.9 % (42.8-82.8); PLATELET COUNT 178 K/MM3 (134-434); RBC 2.57 M/mm3 (3.60-5.2); WHITE BLOOD COUNT 5.7 K/mm3 (4.0-10.0)
--- NOTE | 2017-09-20 08:16 | PN ---
Progress Note (short form) - Note Progress Note: c/o hunger. states abdominal pain and nausea has resolved. had 1 soft BM yesterday AM and no repeat afterwards. has hx of anemia with multiple blood transfusions. continues to have pain in the L leg but feels much improved. denies Cp, SOB, fever, chills, N/V/C/D Current Medications Generic Name Dose Route Start Last Admin Trade Name Freq PRN Reason Stop Dose Admin Acetaminophen 650 mg 09/19/17 20:33 09/19/17 20:48 Tylenol Oral Solution - PO 650 mg Q6H PRN Administration PAIN LEVEL 1 - 3 Albuterol Sulfate 1 amp 09/19/17 12:57 Ventolin 0.083% Nebulizer Soln - NEB Q6H PRN SHORT OF BREATH/WHEEZING Atorvastatin Calcium 20 mg 09/18/17 22:00 09/19/17 21:25 Lipitor - PO 20 mg HS VINCE Administration Bacitracin 1 applic 09/19/17 10:00 09/19/17 10:46 Bacitracin - TP 1 applic DAILY VINCE Administration Budesonide/Formoterol Fumarate 1 puff 09/18/17 22:00 09/19/17 21:26 Symbicort 160/4.5mcg - IH 1 pfu BID VINCE Administration Carvedilol 25 mg 09/19/17 22:00 09/19/17 21:25 Coreg - PO 25 mg BID VINCE Administration Docusate Sodium 100 mg 09/19/17 10:00 09/19/17 10:47 Colace - PO Not Given DAILY [facility]INCE Enalapril Maleate 20 mg 09/19/17 15:17 09/19/17 21:25 Vasotec - PO 20 mg BID VINCE Administration Folic Acid 1 mg 09/19/17 10:00 09/19/17 10:47 Folic Acid - PO 1 mg DAILY [facility]CE Administration Hydroxychloroquine Sulfate 400 mg 09/19/17 22:00 09/19/17 21:24 Plaquenil - PO 400 mg BID VINCE Administration Ertapenem 1 gm/ Sodium 100 mls @ 100 mls/hr 09/18/17 20:00 09/19/17 14:40 Chloride IVPB 100 mls/hr DAILY [facility]INCE Administration Protocol Insulin Aspart 1 vial 09/19/17 11:00 09/20/17 06:03 Novolog Vial Sliding Scale - SQ 6 units ACHS VINCE Administration Protocol Methotrexate 20 mg 09/21/17 10:00 Mexate - PO Gerardo@1000 [facility] Montelukast Sodium 10 mg 09/18/17 22:00 09/19/17 21:24 Singulair - PO 10 mg HS VINCE Administration Non-Formulary Medication 1,000 mg 09/19/17 14:00 Mesalamine [Pentasa] PO QID [facility] Oxycodone HCl 5 mg 09/19/17 03:46 09/20/17 00:17 Roxicodone - PO 5 mg Q6H PRN Administration PAIN LEVEL 7 - 10 Pantoprazole Sodium 40 mg 09/19/17 10:00 09/19/17 10:48 Protonix - PO 40 mg DAILY [facility]INCE Administration Pregabalin 75 mg 09/19/17 14:00 09/20/17 05:36 Lyrica - PO 75 mg TID VINCE Administration Tamoxifen Citrate 20 mg 09/19/17 10:00 09/19/17 14:41 Tamoxifen Citrate PO 20 mg DAILY [facility]INCE Administration Last Vital Signs Temp Pulse Resp BP Pulse Ox 98.7 F 72 20 144/59 96 09/20/17 06:00 09/20/17 06:00 09/20/17 06:00 09/20/17 06:00 09/19/17 21:00 General NAD CV S1 S2 RRR no murmur/rub/gallop Lungs CTA B/L no wheezing/rales/rhonchi Abdomen soft NT/ND obese Extremities LLE hot and very tender, 1+ pitting edema and very faint circumferential erythema. trace pitting edema RLE not tender or warm CBCD WBC 5.7 K/mm3 (4.0-10.0) 09/20/17 07:00 RBC 2.57 M/mm3 (3.60-5.2) L 09/20/17 07:00 Hgb 6.8 GM/dL (10.7-15.3) L* 09/20/17 07:00 Hct 20.7 % (32.4-45.2) L 09/20/17 07:00 MCV 80.4 fl (80-96) 09/20/17 07:00 MCHC 32.7 g/dl (32.0-36.0) 09/20/17 07:00 RDW 18.0 % (11.6-15.6) H 09/20/17 07:00 Plt Count 178 K/MM3 (134-434) 09/20/17 07:00 MPV 8.6 fl (7.5-11.1) 09/20/17 07:00 CMP Sodium 141 mmol/L (136-145) 09/19/17 06:30 Potassium 3.8 mmol/L (3.5-5.1) 09/19/17 06:30 Chloride 107 mmol/L (98-107) 09/19/17 06:30 Carbon Dioxide 24 mmol/L (21-32) 09/19/17 06:30 Anion Gap 10 (8-16) 09/19/17 06:30 BUN 19 mg/dL (7-18) H 09/19/17 06:30 Creatinine 1.9 mg/dL (0.55-1.02) H 09/19/17 06:30 Creat Clearance w eGFR 27.34 (>60) 09/19/17 06:30 Calcium 8.7 mg/dL (8.5-10.1) 09/19/17 06:30 Total Bilirubin 0.4 mg/dL (0.2-1.0) 09/19/17 06:30 AST 21 U/L (15-37) 09/19/17 06:30 ALT 18 U/L (12-78) 09/19/17 06:30 Alkaline Phosphatase 57 U/L (45-117) 09/19/17 06:30 Total Protein 6.1 g/dl (6.4-8.2) L 09/19/17 06:30 Albumin 2.2 g/dl (3.4-5.0) L 09/19/17 06:30 Microbiology 09/18/17 12:00 Blood - Peripheral Venous Blood Culture - Preliminary NO GROWTH OBTAINED AFTER 24 HOURS, INCUBATION TO CONTINUE FOR 4 DAYS. 09/18/17 12:00 Blood - Peripheral Venous Blood Culture - Preliminary NO GROWTH OBTAINED AFTER 24 HOURS, INCUBATION TO CONTINUE FOR 4 DAYS. A/P 57yo F wtih PMH breast ca s/p RTx, DM, HTN, dyslipidemia, asthma and RA presented to the ER with nausea, vomiting and diarrhea x4 days and found to have LLE cellulitis after pedicure 1. Nausea and vomiting- likely gastroenteritis vs from infection. now resolved. tolerating liquid diet. will advance as tolerated. Cx negative 2. LLE cellulitis- after pedicure. On ertapenem day 3. leq is still painful and hot. continue with current management. doppler neg for DVT. Bcx negative 3. Acute On CKD- due to dehydration. slowly trending down. awaiting todays labs. re-started acei yesterday. cont to hold lasix. renal on board 4. Microcytic anemia- no signs of bleeding. Hgb slowly trending down. has hx of multiple blood txn she states since cancer dx. had colonoscopy in 06/2016 which she reports as negative. will give 1 unit PRBC. repeat post-txn. iron studies pending. 5. ADrenal nodules- incidental finding on CT. will need repeat imaging in 3 months 6. DM- uncontrolled. takes regular insulin but sugars are always uncontrolled. check A1c. start levemir 10 units. titrate to optimize control. counselled on risks assoc iwth uncontrolled DM and need for diet and medication compliance 7. HTN- controlled. acei re-started yesterday. titrate to optimize control. holding lasix 8. breast ca s/p Rtx- on tamoxifen 9. asthma- no signs of acute exacerbation. cont inhalers 10. RA- on mtx and plaquenil. cont current management 11. DVT ppx- hold hep sq due to anemia. hold SCD as pt has cellulitis Visit type - Emergency Visit Emergency Visit: Yes ED Registration Date: 09/18/17 Care time: The patient presented to the Emergency Department on the above date and was hospitalized for further evaluation of their emergent condition. - New Patient This patient is new to me today: Yes Date on this admission: 09/20/17 - Critical Care Critical Care patient: No - Discharge Referral Referred to [facility] Med [facility].: No
[2017-09-20 08:19] LABS: CHLORIDE 109 mmol/L (98-107); POTASSIUM 3.5 mmol/L (3.5-5.1); SODIUM 142 mmol/L (136-145)
[2017-09-20 08:26] LABS: ALBUMIN 2.2 g/dl (3.4-5.0); ALK PHOS 57 U/L (45-117); ANION GAP 7 (8-16); BILIRUBIN,TOTAL 0.4 mg/dL (0.2-1.0); BLOOD UREA NITROGEN 15 mg/dL (7-18); CO2 26 mmol/L (21-32); CREATININE 2.1 mg/dL (0.55-1.02); GLUCOSE,RANDOM 194 mg/dL (74-106); SGOT/AST 21 U/L (15-37); SGPT/ALT 19 U/L (12-78); TOT PROT 6.1 g/dl (6.4-8.2)
[2017-09-20 08:35] LABS: HEMOGLOBIN 6.8 GM/dL (10.7-15.3)
[2017-09-20] MEDS ORDERED: PT OWN MED DRAWER 7, Y5N ONE (08:59)
[2017-09-20] MEDS ORDERED: INSULIN (LEVEMIR) 100 UNITS/ML UNITS SQ ONE (09:30)
[2017-09-20 09:33] LABS: PLATELET ESTIMATE NORMAL; TEAR DROP CELLS 1+
[2017-09-20] MEDS: BACITRACIN 15 GM TUBE TOPICAL OINTMENT TP SCH (09:45)
[2017-09-20] MEDS: CARVEDILOL 25 MG TABLET (FP) PO SCH ×2 (09:46→22:01)
[2017-09-20] MEDS: PANTOPRAZOLE 40 MG TABLET (FP) PO SCH (09:47)
[2017-09-20] MEDS: BUDESONIDE/FORMETEROL FUMARATE 160/4.5 mcg INHALER IH SCH ×2 (09:47→22:02)
[2017-09-20] MEDS: FOLIC ACID 1 MG TABLET (FP) PO SCH (09:47)
[2017-09-20] MEDS: ENALAPRIL MALEATE 10 MG TABLET (FP) PO SCH ×2 (09:47→22:01)
[2017-09-20] MEDS: TAMOXIFEN CITRATE 10 MG TABLET PO SCH (09:48)
[2017-09-20] MEDS: DOCUSATE SODIUM 100 MG CAPSULE (FP) PO SCH (09:49)
[2017-09-20] MEDS: ERTAPENEM SODIUM 1 GM in SODIUM CHLORIDE 100 ML IVPB SCH (10:00)
[2017-09-20] MEDS ORDERED: HEPARIN NA (PORCINE) 5,000 UNITS/ML 1ML VIAL SQ SCH (10:00)
[2017-09-20] MEDS: HYDROXYCHLOROQUINE SO4 200 MG TABLET (FP) PO SCH ×2 (10:04→22:02)
[2017-09-20 10:27] LABS: CALCIUM 8.9 mg/dL (8.5-10.1)
--- NOTE | 2017-09-20 12:19 | PN ---
Progress Note, Physician History of Present Illness: Pt alert, afebrile. Denies any new complaints. Abd pain/n/v resolved. Reports mild improvement in LLE pain. - Current Medication List Current Medications: Active Medications Acetaminophen (Tylenol Oral Solution -) 650 mg PO Q6H PRN PRN Reason: PAIN LEVEL 1 - 3 Last Admin: 09/19/17 20:48 Dose: 650 mg Albuterol Sulfate (Ventolin 0.083% Nebulizer Soln -) 1 amp NEB Q6H PRN PRN Reason: SHORT OF BREATH/WHEEZING Atorvastatin Calcium (Lipitor -) 20 mg PO HS [facility] Last Admin: 09/19/17 21:25 Dose: 20 mg Bacitracin (Bacitracin -) 1 applic TP DAILY [facility] Last Admin: 09/20/17 09:45 Dose: 1 applic Budesonide/Formoterol Fumarate (Symbicort 160/4.5mcg -) 1 puff IH BID [facility] Last Admin: 09/20/17 09:47 Dose: 1 puff Carvedilol (Coreg -) 25 mg PO BID [facility] Last Admin: 09/20/17 09:46 Dose: 25 mg Docusate Sodium (Colace -) 100 mg PO DAILY [facility] Last Admin: 09/20/17 09:49 Dose: Not Given Enalapril Maleate (Vasotec -) 20 mg PO BID [facility] Last Admin: 09/20/17 09:47 Dose: 20 mg Folic Acid (Folic Acid -) 1 mg PO DAILY [facility] Last Admin: 09/20/17 09:47 Dose: 1 mg Hydroxychloroquine Sulfate (Plaquenil -) 400 mg PO BID [facility] Last Admin: 09/20/17 10:04 Dose: 400 mg Ertapenem 1 gm/ Sodium (Chloride) 100 mls @ 100 mls/hr IVPB DAILY [facility]; Protocol Last Admin: 09/20/17 10:00 Dose: 100 mls/hr Insulin Aspart (Novolog Vial Sliding Scale -) 1 vial SQ ACHS [facility]; Protocol Last Admin: 09/20/17 11:59 Dose: 8 units Insulin Detemir (Levemir Vial) 10 units SQ AM [facility] Methotrexate (Mexate -) 20 mg PO Gerardo@1000 [facility] Montelukast Sodium (Singulair -) 10 mg PO HS [facility] Last Admin: 09/19/17 21:24 Dose: 10 mg Non-Formulary Medication (Mesalamine [Pentasa]) 1,000 mg PO QID [facility] Oxycodone HCl (Roxicodone -) 5 mg PO Q6H PRN PRN Reason: PAIN LEVEL 7 - 10 Last Admin: 09/20/17 00:17 Dose: 5 mg Pantoprazole Sodium (Protonix -) 40 mg PO DAILY [facility] Last Admin: 09/20/17 09:47 Dose: 40 mg Pregabalin (Lyrica -) 75 mg PO TID [facility] Last Admin: 09/20/17 05:36 Dose: 75 mg Tamoxifen Citrate (Tamoxifen Citrate) 20 mg PO DAILY [facility] Last Admin: 09/20/17 09:48 Dose: 20 mg - Objective Vital Signs: Vital Signs Temperature 98.7 F 09/20/17 06:00 Pulse Rate 72 09/20/17 06:00 Respiratory Rate 20 09/20/17 06:00 Blood Pressure 144/59 09/20/17 06:00 O2 Sat by Pulse Oximetry (%) 96 09/19/17 21:00 Constitutional: Yes: No Distress, Calm Cardiovascular: Yes: Regular Rate and Rhythm Respiratory: Yes: Regular Gastrointestinal: Yes: Normal Bowel Sounds, Soft, Other (nontender) Extremities: Yes: Erythema Edema: LLE: 2+ Integumentary: Yes: Erythema (LLE with wamth, tenderness) Labs: CBC, BMP 09/20/17 07:00 09/20/17 07:00 Microbiology 09/18/17 12:00 Blood - Peripheral Venous Blood Culture - Preliminary NO GROWTH OBTAINED AFTER 48 HOURS, INCUBATION TO CONTINUE FOR 3 DAYS. 09/18/17 12:00 Blood - Peripheral Venous Blood Culture - Preliminary NO GROWTH OBTAINED AFTER 48 HOURS, INCUBATION TO CONTINUE FOR 3 DAYS. Problem List - Problems (1) Acute on chronic renal insufficiency Code(s): N28.9 - DISORDER OF KIDNEY AND URETER, UNSPECIFIED; N18.9 - CHRONIC KIDNEY DISEASE, UNSPECIFIED (2) Cellulitis Code(s): L03.90 - CELLULITIS, UNSPECIFIED (3) Diabetes Code(s): E11.9 - TYPE 2 DIABETES MELLITUS WITHOUT COMPLICATIONS Qualifiers: (4) Nausea & vomiting Code(s): R11.2 - NAUSEA WITH VOMITING, UNSPECIFIED Assessment/Plan Pt with LLE erythema/warmth/tenderness and healing heel ulcer s/p pedicure, and resolving abd pain/n/v LLE cellulitis DM Hx Breast CA on tamoxifen [place]/CKD - continue antibiotics, monitor for improvement in warmth/erythema/tenderness - glycemic control - Renal following pt currently appears stable
--- NOTE | 2017-09-20 14:35 | PN ---
Progress Note (short form) - Note Progress Note: Renal follow up for [place] on CKD Pt seen and examined at the bedside getting PRBC transfusion no acute complaints no sob, chest pian, abd pain, N/V/D Vital Signs Temperature 98.7 F 09/20/17 06:00 Pulse Rate 72 09/20/17 06:00 Respiratory Rate 20 09/20/17 06:00 Blood Pressure 144/59 09/20/17 06:00 O2 Sat by Pulse Oximetry (%) 96 09/19/17 21:00 Intake & Output 09/17/17 09/18/17 09/19/17 09/20/17 23:59 23:59 23:59 23:59 Intake Total 730 Balance 730 Weight 133.356 kg 133.356 kg NAD awake and alert CTA + edema in LE CBC, BMP 09/20/17 07:00 09/20/17 07:00 Current Medications Acetaminophen (Tylenol Oral Solution -) 650 mg PO Q6H PRN PRN Reason: PAIN LEVEL 1 - 3 Last Admin: 09/19/17 20:48 Dose: 650 mg Albuterol Sulfate (Ventolin 0.083% Nebulizer Soln -) 1 amp NEB Q6H PRN PRN Reason: SHORT OF BREATH/WHEEZING Atorvastatin Calcium (Lipitor -) 20 mg PO HS [facility] Last Admin: 09/19/17 21:25 Dose: 20 mg Bacitracin (Bacitracin -) 1 applic TP DAILY [facility] Last Admin: 09/20/17 09:45 Dose: 1 applic Budesonide/Formoterol Fumarate (Symbicort 160/4.5mcg -) 1 puff IH BID [facility] Last Admin: 09/20/17 09:47 Dose: 1 puff Carvedilol (Coreg -) 25 mg PO BID [facility] Last Admin: 09/20/17 09:46 Dose: 25 mg Docusate Sodium (Colace -) 100 mg PO DAILY [facility] Last Admin: 09/20/17 09:49 Dose: Not Given Enalapril Maleate (Vasotec -) 20 mg PO BID [facility] Last Admin: 09/20/17 09:47 Dose: 20 mg Folic Acid (Folic Acid -) 1 mg PO DAILY [facility] Last Admin: 09/20/17 09:47 Dose: 1 mg Hydroxychloroquine Sulfate (Plaquenil -) 400 mg PO BID [facility] Last Admin: 09/20/17 10:04 Dose: 400 mg Ertapenem 1 gm/ Sodium (Chloride) 100 mls @ 100 mls/hr IVPB DAILY [facility]; Protocol Last Admin: 09/20/17 10:00 Dose: 100 mls/hr Insulin Aspart (Novolog Vial Sliding Scale -) 1 vial SQ ACHS [facility]; Protocol Last Admin: 09/20/17 11:59 Dose: 8 units Insulin Detemir (Levemir Vial) 10 units SQ AM [facility] Methotrexate (Mexate -) 20 mg PO Gerardo@1000 [facility] Montelukast Sodium (Singulair -) 10 mg PO HS [facility] Last Admin: 09/19/17 21:24 Dose: 10 mg Non-Formulary Medication (Mesalamine [Pentasa]) 1,000 mg PO QID [facility] Oxycodone HCl (Roxicodone -) 5 mg PO Q6H PRN PRN Reason: PAIN LEVEL 7 - 10 Last Admin: 09/20/17 00:17 Dose: 5 mg Pantoprazole Sodium (Protonix -) 40 mg PO DAILY [facility] Last Admin: 09/20/17 09:47 Dose: 40 mg Pregabalin (Lyrica -) 75 mg PO TID [facility] Last Admin: 09/20/17 05:36 Dose: 75 mg Tamoxifen Citrate (Tamoxifen Citrate) 20 mg PO DAILY [facility] Last Admin: 09/20/17 09:48 Dose: 20 mg 57 year old woman with PMhx of CKD Stage 3 (baseline Cr ~1.7), IDDM, Hypertension, Breast Ca on Tamoxifin, RA who presented with LE redness and pain and N/V and found to have [place] on CKD with Cr of 2.3. #[place] on CKD #CKD Stage 3 #Proteinuria #LE cellulitis #Hypertension #LE edema Etiology of [place] likely due to intravascular volume depletion +/- glomerular hypoprofusion in setting of diarrhea/infection/MAGALY/diuretics Renal function sligthly up from yesterday but may be related to re-introduction of ACEi continue to trend for now getting RPBC transfusion hold diuretics pending stablization in renal function or if pt with signs of symptomatic volume overload Riley Rashid DO
[2017-09-20] MEDS ORDERED: INSULIN (NOVOLOG) ASPART 100 UNITS/ML 10ML VIAL ONE (22:00)
[2017-09-20] MEDS: MONTELUKAST NA 10 MG TABLET PO SCH (22:01)
[2017-09-20] MEDS: ATORVASTATIN CA 20 MG TABLET (FP) PO SCH (22:01)
[2017-09-21] MEDS: PREGABALIN 75 MG CAPSULE PO SCH ×3 (06:27→21:27)
[2017-09-21] MEDS: INSULIN SLIDING SCALE (NOVOLOG) 1 VIAL SQ SCH ×5 (06:28→22:37)
[2017-09-21] MEDS ORDERED: INSULIN (NOVOLOG) ASPART 100 UNITS/ML 10ML VIAL ONE ×3 (06:40→17:36)
[2017-09-21] MEDS ORDERED: INSULIN (LEVEMIR) 100 UNITS/ML UNITS SQ SCH (07:00)
[2017-09-21] MEDS ORDERED: METHOTREXATE 2.5 MG TABLET PO SCH (10:00)
--- NOTE | 2017-09-21 10:04 | PN ---
Progress Note (short form) - Note Progress Note: Renal follow up for [place] on CKD Pt seen and examined at the bedside no acute complaints no sob, chest pain abd pain has constapation making urine Vital Signs Temperature 98.2 F 09/21/17 06:00 Pulse Rate 68 09/21/17 06:00 Respiratory Rate 20 09/21/17 06:00 Blood Pressure 143/59 09/21/17 06:00 O2 Sat by Pulse Oximetry (%) 96 09/20/17 21:00 Intake & Output 09/18/17 09/19/17 09/20/17 09/21/17 23:59 23:59 23:59 23:59 Intake Total 730 650 680 Balance 730 650 680 Weight 133.356 kg 133.356 kg NAD awake and alert CTA + edema in LE Todays labs pending Current Medications Acetaminophen (Tylenol Oral Solution -) 650 mg PO Q6H PRN PRN Reason: PAIN LEVEL 1 - 3 Last Admin: 09/19/17 20:48 Dose: 650 mg Albuterol Sulfate (Ventolin 0.083% Nebulizer Soln -) 1 amp NEB Q6H PRN PRN Reason: SHORT OF BREATH/WHEEZING Atorvastatin Calcium (Lipitor -) 20 mg PO HS [facility] Last Admin: 09/20/17 22:01 Dose: 20 mg Bacitracin (Bacitracin -) 1 applic TP DAILY [facility] Last Admin: 09/20/17 09:45 Dose: 1 applic Budesonide/Formoterol Fumarate (Symbicort 160/4.5mcg -) 1 puff IH BID [facility] Last Admin: 09/20/17 22:02 Dose: 1 puff Carvedilol (Coreg -) 25 mg PO BID [facility] Last Admin: 09/20/17 22:01 Dose: 25 mg Docusate Sodium (Colace -) 100 mg PO DAILY [facility] Last Admin: 09/20/17 09:49 Dose: Not Given Enalapril Maleate (Vasotec -) 20 mg PO BID [facility] Last Admin: 09/20/17 22:01 Dose: 20 mg Folic Acid (Folic Acid -) 1 mg PO DAILY [facility] Last Admin: 09/20/17 09:47 Dose: 1 mg Hydroxychloroquine Sulfate (Plaquenil -) 400 mg PO BID [facility] Last Admin: 09/20/17 22:02 Dose: 400 mg Ertapenem 1 gm/ Sodium (Chloride) 100 mls @ 100 mls/hr IVPB DAILY [facility]; Protocol Last Admin: 09/20/17 10:00 Dose: 100 mls/hr Insulin Aspart (Novolog Vial Sliding Scale -) 1 vial SQ ACHS [facility]; Protocol Last Admin: 09/21/17 06:28 Dose: 4 units Insulin Detemir (Levemir Vial) 10 units SQ AM [facility] Last Admin: 09/21/17 06:27 Dose: 10 units Methotrexate (Mexate -) 20 mg PO Gerardo@1000 [facility] Montelukast Sodium (Singulair -) 10 mg PO HS [facility] Last Admin: 09/20/17 22:01 Dose: 10 mg Non-Formulary Medication (Mesalamine [Pentasa]) 1,000 mg PO QID [facility] Oxycodone HCl (Roxicodone -) 5 mg PO Q6H PRN PRN Reason: PAIN LEVEL 7 - 10 Last Admin: 09/20/17 22:05 Dose: 5 mg Pantoprazole Sodium (Protonix -) 40 mg PO DAILY [facility] Last Admin: 09/20/17 09:47 Dose: 40 mg Pregabalin (Lyrica -) 75 mg PO TID [facility] Last Admin: 09/21/17 06:27 Dose: 75 mg Tamoxifen Citrate (Tamoxifen Citrate) 20 mg PO DAILY [facility] Last Admin: 09/20/17 09:48 Dose: 20 mg 57 year old woman with PMhx of CKD Stage 3 (baseline Cr ~1.7), IDDM, Hypertension, Breast Ca on Tamoxifin, RA who presented with LE redness and pain and N/V and found to have [place] on CKD with Cr of 2.3. #[place] on CKD #CKD Stage 3 #Proteinuria #LE cellulitis #Hypertension #LE edema Etiology of [place] likely due to intravascular volume depletion +/- glomerular hypoprofusion in setting of diarrhea/infection/MAGALY/diuretics Todays labs pending continue ACEi for now s/p PRBC transfusion Trend BUn/Cr Riley Rashid DO
[2017-09-21 10:18] LABS: EOS % 4.2 % (0-4.5); HEMATOCRIT 25.9 % (32.4-45.2); HEMOGLOBIN 8.6 GM/dL (10.7-15.3); LYMPH % 10.5 % (8-40); MCH 26.9 pg (25.7-33.7); MCHC 33.2 g/dl (32.0-36.0); MEAN PLT VOLUME 8.6 fl (7.5-11.1); NEUT % 76.3 % (42.8-82.8); PLATELET COUNT 217 K/MM3 (134-434); RDW 17.7 % (11.6-15.6); WHITE BLOOD COUNT 8.4 K/mm3 (4.0-10.0)
[2017-09-21] MEDS: HYDROXYCHLOROQUINE SO4 200 MG TABLET (FP) PO SCH ×2 (10:45→21:28)
[2017-09-21] MEDS: TAMOXIFEN CITRATE 10 MG TABLET PO SCH (10:45)
[2017-09-21] MEDS: CARVEDILOL 25 MG TABLET (FP) PO SCH ×2 (10:46→21:27)
[2017-09-21] MEDS: DOCUSATE SODIUM 100 MG CAPSULE (FP) PO SCH (10:46)
[2017-09-21] MEDS: ENALAPRIL MALEATE 10 MG TABLET (FP) PO SCH ×2 (10:46→21:28)
[2017-09-21] MEDS: PANTOPRAZOLE 40 MG TABLET (FP) PO SCH (10:46)
[2017-09-21] MEDS: FOLIC ACID 1 MG TABLET (FP) PO SCH (10:46)
[2017-09-21] MEDS: ERTAPENEM SODIUM 1 GM in SODIUM CHLORIDE 100 ML IVPB SCH (10:48)
[2017-09-21] MEDS: BUDESONIDE/FORMETEROL FUMARATE 160/4.5 mcg INHALER IH SCH ×2 (10:49→21:32)
[2017-09-21 11:34] LABS: ANION GAP 8 (8-16); BLOOD UREA NITROGEN 11 mg/dL (7-18); CALCIUM 8.9 mg/dL (8.5-10.1); CHLORIDE 104 mmol/L (98-107); CO2 30 mmol/L (21-32); GLUCOSE,RANDOM 93 mg/dL (74-106); SODIUM 142 mmol/L (136-145)
[2017-09-21] MEDS ORDERED: PT OWN MED DRAWER 7, Y5N ONE ×2 (11:35→20:58)
[2017-09-21] MEDS: BACITRACIN 15 GM TUBE TOPICAL OINTMENT TP SCH (11:35)
--- NOTE | 2017-09-21 13:01 | PN ---
Progress Note, Physician History of Present Illness: Pt reports less pain in LLE. No other specific complaints. - Current Medication List Current Medications: Active Medications Acetaminophen (Tylenol Oral Solution -) 650 mg PO Q6H PRN PRN Reason: PAIN LEVEL 1 - 3 Last Admin: 09/19/17 20:48 Dose: 650 mg Albuterol Sulfate (Ventolin 0.083% Nebulizer Soln -) 1 amp NEB Q6H PRN PRN Reason: SHORT OF BREATH/WHEEZING Atorvastatin Calcium (Lipitor -) 20 mg PO HS [facility] Last Admin: 09/20/17 22:01 Dose: 20 mg Bacitracin (Bacitracin -) 1 applic TP DAILY [facility] Last Admin: 09/21/17 11:35 Dose: 1 applic Budesonide/Formoterol Fumarate (Symbicort 160/4.5mcg -) 1 puff IH BID [facility] Last Admin: 09/21/17 10:49 Dose: 1 puff Carvedilol (Coreg -) 25 mg PO BID [facility] Last Admin: 09/21/17 10:46 Dose: 25 mg Docusate Sodium (Colace -) 100 mg PO DAILY [facility] Last Admin: 09/21/17 10:46 Dose: 100 mg Enalapril Maleate (Vasotec -) 20 mg PO BID [facility] Last Admin: 09/21/17 10:46 Dose: 20 mg Folic Acid (Folic Acid -) 1 mg PO DAILY [facility] Last Admin: 09/21/17 10:46 Dose: 1 mg Hydroxychloroquine Sulfate (Plaquenil -) 400 mg PO BID [facility] Last Admin: 09/21/17 10:45 Dose: 400 mg Ertapenem 1 gm/ Sodium (Chloride) 100 mls @ 100 mls/hr IVPB DAILY [facility]; Protocol Last Admin: 09/21/17 10:48 Dose: 100 mls/hr Insulin Aspart (Novolog Vial Sliding Scale -) 1 vial SQ ACHS [facility]; Protocol Last Admin: 09/21/17 12:05 Dose: 6 units Insulin Detemir (Levemir Vial) 10 units SQ AM [facility] Last Admin: 09/21/17 06:27 Dose: 10 units Methotrexate (Mexate -) 20 mg PO Gerardo@1000 [facility] Last Admin: 09/21/17 10:49 Dose: 20 mg Montelukast Sodium (Singulair -) 10 mg PO HS [facility] Last Admin: 09/20/17 22:01 Dose: 10 mg Non-Formulary Medication (Mesalamine [Pentasa]) 1,000 mg PO QID [facility] Oxycodone HCl (Roxicodone -) 5 mg PO Q6H PRN PRN Reason: PAIN LEVEL 7 - 10 Last Admin: 09/20/17 22:05 Dose: 5 mg Pantoprazole Sodium (Protonix -) 40 mg PO DAILY [facility] Last Admin: 09/21/17 10:46 Dose: 40 mg Pregabalin (Lyrica -) 75 mg PO TID [facility] Last Admin: 09/21/17 06:27 Dose: 75 mg Tamoxifen Citrate (Tamoxifen Citrate) 20 mg PO DAILY [facility] Last Admin: 09/21/17 10:45 Dose: 20 mg - Objective Vital Signs: Vital Signs Temperature 98.8 F 09/21/17 10:00 Pulse Rate 67 09/21/17 10:00 Respiratory Rate 18 09/21/17 10:00 Blood Pressure 147/69 09/21/17 10:00 O2 Sat by Pulse Oximetry (%) 96 09/20/17 21:00 Constitutional: Yes: No Distress, Calm Cardiovascular: Yes: Regular Rate and Rhythm Respiratory: Yes: Regular Gastrointestinal: Yes: Normal Bowel Sounds, Soft Genitourinary: Yes: WNL Extremities: Yes: Erythema (LLE less erythema, remains swollen/mildly warm) Neurological: Yes: Alert, Oriented Labs: CBC, BMP 09/21/17 09:45 09/21/17 09:45 Problem List - Problems (1) Acute on chronic renal insufficiency Code(s): N28.9 - DISORDER OF KIDNEY AND URETER, UNSPECIFIED; N18.9 - CHRONIC KIDNEY DISEASE, UNSPECIFIED (2) Cellulitis Code(s): L03.90 - CELLULITIS, UNSPECIFIED (3) Diabetes Code(s): E11.9 - TYPE 2 DIABETES MELLITUS WITHOUT COMPLICATIONS Qualifiers: (4) Nausea & vomiting Code(s): R11.2 - NAUSEA WITH VOMITING, UNSPECIFIED Assessment/Plan Pt with LLE erythema/warmth/tenderness and healing heel ulcer s/p pedicure, and resolving abd pain/n/v LLE cellulitis DM Hx Breast CA on tamoxifen [place]/CKD Anemia - continue current antibiotics - glycemic control - pt still with LLE edema/warmth but slowly improving afebrile/stable
--- NOTE | 2017-09-21 19:23 | PN ---
Physical Exam: SUBJECTIVE: Patient seen and examined at the bedside. Feels well, in no acute distress. Resting comfortably. OBJECTIVE: Vital Signs Period Temp Pulse Resp BP Sys/Ronquillo Pulse Ox Last 24 Hr 96.9 F-98.8 F 66-75 18-20 124-147/58-69 96 GENERAL: The patient is awake, alert, and fully oriented, in no acute distress. HEAD: Normal with no signs of trauma. EYES: PERRL, extraocular movements intact, sclera anicteric, conjunctiva clear. No ptosis. ENT: Ears normal, nares patent, oropharynx clear without exudates, moist mucous membranes. NECK: Trachea midline, full range of motion, supple. LUNGS: Breath sounds equal, clear to auscultation bilaterally, no wheezes HEART: Regular rate and rhythm ABDOMEN: Soft, nontender, nondistended, normoactive bowel sounds, no guarding, no rebound, no hepatosplenomegaly, no masses. Laboratory Results - last 24 hr 09/20/17 09/21/17 09/21/17 21:07 06:27 09:45 WBC RBC Hgb Hct MCV MCH MCHC RDW Plt Count MPV Neutrophils % Lymphocytes % Monocytes % Eosinophils % Basophils % Nucleated RBC % Sodium 142 Potassium 4.0 Chloride 104 Carbon Dioxide 30 Anion Gap 8 BUN 11 Creatinine 1.0 POC Glucometer 243 222 Random Glucose 93 Hemoglobin A1c % Calcium 8.9 TSH 0.66 09/21/17 09/21/17 09/21/17 09:45 09:45 11:57 WBC 8.4 D RBC 3.20 L D Hgb 8.6 L D Hct 25.9 L D MCV 81.0 MCH 26.9 MCHC 33.2 RDW 17.7 H Plt Count 217 D MPV 8.6 Neutrophils % 76.3 Lymphocytes % 10.5 D Monocytes % 8.0 Eosinophils % 4.2 Basophils % 1.0 Nucleated RBC % 0 Sodium Potassium Chloride Carbon Dioxide Anion Gap BUN Creatinine POC Glucometer 297 Random Glucose Hemoglobin A1c % 8.8 H Calcium TSH 09/21/17 17:32 WBC RBC Hgb Hct MCV MCH MCHC RDW Plt Count MPV Neutrophils % Lymphocytes % Monocytes % Eosinophils % Basophils % Nucleated RBC % Sodium Potassium Chloride Carbon Dioxide Anion Gap BUN Creatinine POC Glucometer 216 Random Glucose Hemoglobin A1c % Calcium TSH Active Medications Generic Name Dose Route Start Last Admin Trade Name Freq PRN Reason Stop Dose Admin Acetaminophen 650 mg 09/19/17 20:33 09/19/17 20:48 Tylenol Oral Solution - PO 650 mg Q6H PRN Administration PAIN LEVEL 1 - 3 Albuterol Sulfate 1 amp 09/19/17 12:57 Ventolin 0.083% Nebulizer Soln - NEB Q6H PRN SHORT OF BREATH/WHEEZING Atorvastatin Calcium 20 mg 09/18/17 22:00 09/20/17 22:01 Lipitor - PO 20 mg HS VINCE Administration Bacitracin 1 applic 09/19/17 10:00 09/21/17 11:35 Bacitracin - TP 1 applic DAILY VINCE Administration Budesonide/Formoterol Fumarate 1 puff 09/18/17 22:00 09/21/17 10:49 Symbicort 160/4.5mcg - IH 1 puff BID VINCE Administration Carvedilol 25 mg 09/19/17 22:00 09/21/17 10:46 Coreg - PO 25 mg BID VINCE Administration Docusate Sodium 100 mg 09/19/17 10:00 09/21/17 10:46 Colace - PO 100 mg DAILY VINCE Administration Enalapril Maleate 20 mg 09/19/17 15:17 09/21/17 10:46 Vasotec - PO 20 mg BID VINCE Administration Folic Acid 1 mg 09/19/17 10:00 09/21/17 10:46 Folic Acid - PO 1 mg DAILY VINCE Administration Hydroxychloroquine Sulfate 400 mg 09/19/17 22:00 09/21/17 10:45 Plaquenil - PO 400 mg BID VINCE Administration Ertapenem 1 gm/ Sodium 100 mls @ 100 mls/hr 09/18/17 20:00 09/21/17 10:48 Chloride IVPB 100 mls/hr DAILY VINCE Administration Protocol Insulin Aspart 1 vial 09/19/17 11:00 09/21/17 17:36 Novolog Vial Sliding Scale - SQ 4 units ACHS VINCE Administration Protocol Insulin Detemir 10 units 09/21/17 07:00 09/21/17 06:27 Levemir Vial SQ 10 units AM VINCE Administration Methotrexate 20 mg 09/21/17 10:00 09/21/17 10:49 Mexate - PO 20 mg Gerardo@1000 VINCE Administration Montelukast Sodium 10 mg 09/18/17 22:00 09/20/17 22:01 Singulair - PO 10 mg HS VINCE Administration Non-Formulary Medication 1,000 mg 09/19/17 14:00 Mesalamine [Pentasa] PO QID VINCE Oxycodone HCl 5 mg 09/19/17 03:46 09/20/17 22:05 Roxicodone - PO 5 mg Q6H PRN Administration PAIN LEVEL 7 - 10 Pantoprazole Sodium 40 mg 09/19/17 10:00 09/21/17 10:46 Protonix - PO 40 mg DAILY VINCE Administration Pregabalin 75 mg 09/19/17 14:00 09/21/17 15:10 Lyrica - PO 75 mg TID VINCE Administration Tamoxifen Citrate 20 mg 09/19/17 10:00 09/21/17 10:45 Tamoxifen Citrate PO 20 mg DAILY VINCE Administration ASSESSMENT/PLAN: Patient is a 57 year old female with a significant past medical history of hypertension, hyperlipidemia, diabetes, asthma, breast cancer s/p radiation. She presents to the ED with 4 days of nausea/vomiting and diarrhea and left leg erythema Patient was not taking her insulin due to inability to eat. Patient reports that she had a pedicure and they removed callus on her bilateral heels. She states since then, she has had a left heel non-healing wound and has noticed erythema moving up her left leg. No fevers or chills reported. GI: Nausea/Vomting/diarrhea, resolved. Tolerating diet. No further vomiting. CT scan of abd negative for obstruction. Small bilateral adrenal nodules seen, follow up in 3 months recommended. Monitor intake and output ID: Left lower leg cellulitis s/p pedicure in the setting of diabetes. On Ertapenm , leg pain improving. No DVT seen on doppler study. Pain management Renal: Acute on CKD, Lasix on hold, creat now stable. Endocrine Diabetes, chronic Increased Levemir, increased SS, monitor and titrate. Diabetic diet Card: Hypertension, chronic Controlled, [place] started on 09/20, Monitor BP and titrate meds to goal BP HLD, on Lipitor Pulm. Asthma, history Not in exacerbation, tolerating room air. Inhalers Heme s/p PRBC transfusion on 09/20 with good response. CBC in a.m. Iron studies pending Onc: Breast cancer history. On Tamoxifen F.E.N. Fluids: PO adequate Electrolytes: monitor Nutrition: diabetic diet Prophy: DVT: no a/c due to anemia, no SCD 2/2 lower ext cellulits. Encourage ambulation , PT ordered GI: deferred Visit type - Emergency Visit Emergency Visit: Yes ED Registration Date: 09/18/17 Care time: The patient presented to the Emergency Department on the above date and was hospitalized for further evaluation of their emergent condition. - New Patient This patient is new to me today: Yes Date on this admission: 09/21/17 - Critical Care Critical Care patient: No - Discharge Referral Referred to [facility] Med [facility].C[facility] No Physician Referral: Ab Gonsales MD ([facility])
[2017-09-21] MEDS: MONTELUKAST NA 10 MG TABLET PO SCH (21:28)
[2017-09-21] MEDS: ATORVASTATIN CA 20 MG TABLET (FP) PO SCH (21:28)
--- NOTE | 2017-09-21 22:33 | EKG ---
Test Reason : Blood Pressure : / mmHG Vent. Rate : 066 BPM Atrial Rate : 072 BPM P-R Int : 000 ms QRS Dur : 076 ms QT Int : 460 ms P-R-T Axes : 000 -01 056 degrees QTc Int : 482 ms NORMAL SINUS RHYTHM CANNOT RULE OUT ANTERIOR INFARCT , AGE UNDETERMINED ARITFACT PRESENT ABNORMAL ECG Confirmed by SU KIRKLAND MD ([id number]) on 09/21/2017 10:33:21 PM Referred By: Confirmed By:SU KIRKLAND MD
[2017-09-21] MEDS: oxyCODONE HCL 5 MG TABLET PO PRN (22:39)
[2017-09-21] MEDS: ALBUTEROL SO4 0.083% IH SOL 2.5 MG/3 ML VIAL.NEB. NEB PRN (22:48)
[2017-09-22] MEDS: PREGABALIN 75 MG CAPSULE PO SCH ×3 (05:31→21:16)
[2017-09-22] MEDS: INSULIN (LEVEMIR) 100 UNITS/ML UNITS SQ SCH (06:05)
[2017-09-22] MEDS: INSULIN SLIDING SCALE (NOVOLOG) 1 VIAL SQ SCH ×4 (06:06→21:22)
[2017-09-22 08:25] LABS: BASO % 0.6 % (0-2.0); EOS % 2.5 % (0-4.5); HEMATOCRIT 22.8 % (32.4-45.2); HEMOGLOBIN 7.7 GM/dL (10.7-15.3); LYMPH % 7.2 % (8-40); MCH 27.2 pg (25.7-33.7); MCHC 33.7 g/dl (32.0-36.0); MEAN CELL VOLUME 80.8 fl (80-96); MEAN PLT VOLUME 8.7 fl (7.5-11.1); MONO % 5.8 % (3.8-10.2); NEUT % 83.9 % (42.8-82.8); PLATELET COUNT 203 K/MM3 (134-434); RBC 2.83 M/mm3 (3.60-5.2); RDW 18.2 % (11.6-15.6); WHITE BLOOD COUNT 10.2 K/mm3 (4.0-10.0)
[2017-09-22 09:03] LABS: BLOOD UREA NITROGEN 18 mg/dL (7-18); CHLORIDE 110 mmol/L (98-107); SODIUM 142 mmol/L (136-145)
[2017-09-22 09:08] LABS: ANION GAP 7 (8-16); CALCIUM 8.4 mg/dL (8.5-10.1); CO2 25 mmol/L (21-32); GLUCOSE,RANDOM 191 mg/dL (74-106); MAGNESIUM 2.1 mg/dL (1.8-2.4); PHOSPHOROUS 4.2 mg/dL (2.5-4.9)
[2017-09-22] MEDS: BACITRACIN 15 GM TUBE TOPICAL OINTMENT TP SCH (09:36)
[2017-09-22] MEDS: CARVEDILOL 25 MG TABLET (FP) PO SCH ×2 (09:37→21:16)
[2017-09-22] MEDS: ERTAPENEM SODIUM 1 GM in SODIUM CHLORIDE 100 ML IVPB SCH (09:37)
[2017-09-22] MEDS: FOLIC ACID 1 MG TABLET (FP) PO SCH (09:37)
[2017-09-22] MEDS: DOCUSATE SODIUM 100 MG CAPSULE (FP) PO SCH (09:37)
[2017-09-22] MEDS: BUDESONIDE/FORMETEROL FUMARATE 160/4.5 mcg INHALER IH SCH ×2 (09:38→21:26)
[2017-09-22] MEDS: HYDROXYCHLOROQUINE SO4 200 MG TABLET (FP) PO SCH ×2 (09:38→21:16)
[2017-09-22] MEDS: PANTOPRAZOLE 40 MG TABLET (FP) PO SCH (09:38)
[2017-09-22] MEDS: ENALAPRIL MALEATE 10 MG TABLET (FP) PO SCH ×2 (09:39→21:16)
[2017-09-22] MEDS: TAMOXIFEN CITRATE 10 MG TABLET PO SCH (09:39)
[2017-09-22] MEDS ORDERED: PT OWN MED DRAWER 7, Y5N ONE ×2 (09:48→21:11)
--- NOTE | 2017-09-22 10:49 | PN ---
Physical Exam: SUBJECTIVE: Patient seen and examined at bedside. Complains of tenderness in LLE. Is able to weight bear, ambulate. OBJECTIVE: Vital Signs Period Temp Pulse Resp BP Sys/Ronquillo Pulse Ox Last 24 Hr 98.4 F-99.8 F 62-86 20-20 133-154/58-71 GENERAL: The patient is awake, alert, and fully oriented, in no acute distress. LUNGS: Breath sounds equal, clear to auscultation bilaterally, no wheezes, no crackles, no accessory muscle use. HEART: Regular rate and rhythm, S1, S2 without murmur, rub or gallop. ABDOMEN: Soft, nontender, obese, + bowel sounds, no guarding, no rebound EXTREMITIES: LLE 2+swelling, tender, heel wound is dry, no erythema NEUROLOGICAL: Cranial nerves II through XII grossly intact. Normal speech, gait not observed. Laboratory Results - last 24 hr 09/21/17 09/21/17 09/21/17 09:45 09:45 11:57 WBC RBC Hgb Hct MCV MCH MCHC RDW Plt Count MPV Neutrophils % Lymphocytes % Monocytes % Eosinophils % Basophils % Nucleated RBC % Sodium 142 Potassium 4.0 Chloride 104 Carbon Dioxide 30 Anion Gap 8 BUN 11 Creatinine 1.0 POC Glucometer 297 Random Glucose 93 Hemoglobin A1c % 8.8 H Calcium 8.9 Phosphorus Magnesium TSH 0.66 09/21/17 09/21/17 09/22/17 17:32 21:27 05:30 WBC RBC Hgb Hct MCV MCH MCHC RDW Plt Count MPV Neutrophils % Lymphocytes % Monocytes % Eosinophils % Basophils % Nucleated RBC % Sodium Potassium Chloride Carbon Dioxide Anion Gap BUN Creatinine POC Glucometer 216 232 216 Random Glucose Hemoglobin A1c % Calcium Phosphorus Magnesium TSH 09/22/17 09/22/17 07:42 07:42 WBC 10.2 H RBC 2.83 L Hgb 7.7 L D Hct 22.8 L MCV 80.8 MCH 27.2 MCHC 33.7 RDW 18.2 H Plt Count 203 MPV 8.7 Neutrophils % 83.9 H Lymphocytes % 7.2 L D Monocytes % 5.8 Eosinophils % 2.5 Basophils % 0.6 Nucleated RBC % 0 Sodium 142 Potassium 4.0 Chloride 110 H Carbon Dioxide 25 Anion Gap 7 L BUN 18 Creatinine 2.0 H POC Glucometer Random Glucose 191 H Hemoglobin A1c % Calcium 8.4 L Phosphorus 4.2 Magnesium 2.1 TSH Active Medications Generic Name Dose Route Start Last Admin Trade Name Freq PRN Reason Stop Dose Admin Acetaminophen 650 mg 09/19/17 20:33 09/19/17 20:48 Tylenol Oral Solution - PO 650 mg Q6H PRN Administration PAIN LEVEL 1 - 3 Albuterol Sulfate 1 amp 09/19/17 12:57 09/21/17 22:48 Ventolin 0.083% Nebulizer Soln - NEB 1 amp Q6H PRN Administration SHORT OF BREATH/WHEEZING Atorvastatin Calcium 20 mg 09/18/17 22:00 09/21/17 21:28 Lipitor - PO 20 mg HS VINCE Administration Bacitracin 1 applic 09/19/17 10:00 09/22/17 09:36 Bacitracin - TP 1 applic DAILY VINCE Administration Budesonide/Formoterol Fumarate 1 puff 09/18/17 22:00 09/22/17 09:38 Symbicort 160/4.5mcg - IH 1 puff BID VINCE Administration Carvedilol 25 mg 09/19/17 22:00 09/22/17 09:37 Coreg - PO 25 mg BID VINCE Administration Docusate Sodium 100 mg 09/19/17 10:00 09/22/17 09:37 Colace - PO 100 mg DAILY VINCE Administration Enalapril Maleate 20 mg 09/19/17 15:17 09/22/17 09:39 Vasotec - PO 20 mg BID VINCE Administration Folic Acid 1 mg 09/19/17 10:00 09/22/17 09:37 Folic Acid - PO 1 mg DAILY VINCE Administration Hydroxychloroquine Sulfate 400 mg 09/19/17 22:00 09/22/17 09:38 Plaquenil - PO 400 mg BID VINCE Administration Ertapenem 1 gm/ Sodium 100 mls @ 100 mls/hr 09/18/17 20:00 09/22/17 09:37 Chloride IVPB 100 mls/hr DAILY VINCE Administration Protocol Insulin Aspart 1 vial 09/21/17 21:34 09/22/17 06:06 Novolog Vial Sliding Scale - SQ 6 unit ACHS VINCE Administration Protocol Insulin Detemir 15 units 09/21/17 21:36 09/22/17 06:05 Levemir Vial SQ 15 unit AM VINCE Administration Methotrexate 20 mg 09/21/17 10:00 09/21/17 10:49 Mexate - PO 20 mg Gerardo@1000 VINCE Administration Montelukast Sodium 10 mg 09/18/17 22:00 09/21/17 21:28 Singulair - PO 10 mg HS VINCE Administration Non-Formulary Medication 1,000 mg 09/19/17 14:00 Mesalamine [Pentasa] PO QID VINCE Pantoprazole Sodium 40 mg 09/19/17 10:00 09/22/17 09:38 Protonix - PO 40 mg DAILY VINCE Administration Pregabalin 75 mg 09/19/17 14:00 09/22/17 05:31 Lyrica - PO 75 mg TID VINCE Administration Tamoxifen Citrate 20 mg 09/19/17 10:00 09/22/17 09:39 Tamoxifen Citrate PO 20 mg DAILY VINCE Administration ASSESSMENT/PLAN 57 year-old patient with a PMH significant for HTN, HLD, asthma, RA, IDDM, anemia requiring transfusions, and breast cancer s/p radiation. Admitted for LLE cellulitis following a razor wound during a pedicure. LLE cellulitis --continue ertapenem (day #4) --elevate leg --09/18 duplex negative for DVT Gastroenteritis --resolved --tolerating diet [place] on CKD --likely due to low volume state, multifactorial: diarrhea, infection, MAGALY, diuretics --Cr 2.3 on admission, 2.0 today, baseline 1.7 --continue enalapril for now, hold lasix Anemia --last transfused 09/20, 1 U PRBC, good response Hgb 6.8-->8.6 --trending down today 7.7 --heme consult requested Breast cancer --continue tamoxifen Rheumatoid arthritis --continue mesalamine, Plaquenil, methotrexate, Lyrica Asthma --stable --continue Symbicort, albuterol nebs IDDM --HgbA1C 8.8 --Levemir 15U --Novolog sliding scale Hypertension --continue enlaparil, carvedilol Hyperlipidemia --continue Lipitor FEN Fluids: PO intake adequate Electrolytes: replete as indicated Nutrition: diabetic, low sodium DVT prophylaxis: hold chemical prophylaxis due to anemia; right leg SCD; oob; ambulation Physical therapy Dispo: continues to require inpatient care. Full code. Visit type - Emergency Visit Emergency Visit: Yes ED Registration Date: 09/18/17 Care time: The patient presented to the Emergency Department on the above date and was hospitalized for further evaluation of their emergent condition. - New Patient This patient is new to me today: Yes Date on this admission: 09/22/17 - Critical Care Critical Care patient: No
[2017-09-22] MEDS ORDERED: INSULIN (NOVOLOG) ASPART 100 UNITS/ML 10ML VIAL ONE ×2 (11:38→13:35)
--- NOTE | 2017-09-22 12:10 | PN ---
Progress Note, Physician History of Present Illness: patient leg still swollen pain still present - Current Medication List Current Medications: Active Medications Acetaminophen (Tylenol Oral Solution -) 650 mg PO Q6H PRN PRN Reason: PAIN LEVEL 1 - 3 Last Admin: 09/19/17 20:48 Dose: 650 mg Albuterol Sulfate (Ventolin 0.083% Nebulizer Soln -) 1 amp NEB Q6H PRN PRN Reason: SHORT OF BREATH/WHEEZING Last Admin: 09/21/17 22:48 Dose: 1 amp Atorvastatin Calcium (Lipitor -) 20 mg PO HS [facility] Last Admin: 09/21/17 21:28 Dose: 20 mg Bacitracin (Bacitracin -) 1 applic TP DAILY [facility] Last Admin: 09/22/17 09:36 Dose: 1 applic Budesonide/Formoterol Fumarate (Symbicort 160/4.5mcg -) 1 puff IH BID [facility] Last Admin: 09/22/17 09:38 Dose: 1 puff Carvedilol (Coreg -) 25 mg PO BID [facility] Last Admin: 09/22/17 09:37 Dose: 25 mg Docusate Sodium (Colace -) 100 mg PO DAILY [facility] Last Admin: 09/22/17 09:37 Dose: 100 mg Enalapril Maleate (Vasotec -) 20 mg PO BID [facility] Last Admin: 09/22/17 09:39 Dose: 20 mg Folic Acid (Folic Acid -) 1 mg PO DAILY [facility] Last Admin: 09/22/17 09:37 Dose: 1 mg Hydroxychloroquine Sulfate (Plaquenil -) 400 mg PO BID [facility] Last Admin: 09/22/17 09:38 Dose: 400 mg Ertapenem 1 gm/ Sodium (Chloride) 100 mls @ 100 mls/hr IVPB DAILY [facility]; Protocol Last Admin: 09/22/17 09:37 Dose: 100 mls/hr Insulin Aspart (Novolog Vial Sliding Scale -) 1 vial SQ ACHS [facility]; Protocol Last Admin: 09/22/17 11:52 Dose: 6 unit Insulin Detemir (Levemir Vial) 15 units SQ AM [facility] Last Admin: 09/22/17 06:05 Dose: 15 unit Methotrexate (Mexate -) 20 mg PO Gerardo@1000 [facility] Last Admin: 09/21/17 10:49 Dose: 20 mg Montelukast Sodium (Singulair -) 10 mg PO HS [facility] Last Admin: 09/21/17 21:28 Dose: 10 mg Non-Formulary Medication (Mesalamine [Pentasa]) 1,000 mg PO QID [facility] Pantoprazole Sodium (Protonix -) 40 mg PO DAILY [facility] Last Admin: 09/22/17 09:38 Dose: 40 mg Pregabalin (Lyrica -) 75 mg PO TID [facility] Last Admin: 09/22/17 05:31 Dose: 75 mg Tamoxifen Citrate (Tamoxifen Citrate) 20 mg PO DAILY [facility] Last Admin: 09/22/17 09:39 Dose: 20 mg - Objective Vital Signs: Vital Signs Temperature 99.2 F 09/22/17 09:26 Pulse Rate 86 09/22/17 09:26 Respiratory Rate 20 09/22/17 09:26 Blood Pressure 146/68 09/22/17 09:26 O2 Sat by Pulse Oximetry (%) 96 09/20/17 21:00 Constitutional: Yes: No Distress, Calm, Obese Cardiovascular: Yes: S1, S2 Respiratory: Yes: Regular, CTA Bilaterally Gastrointestinal: Yes: Normal Bowel Sounds, Soft Musculoskeletal: Yes: Other Extremities: Yes: Other Edema: LLE: 2+ Integumentary: Yes: Erythema Neurological: Yes: Alert, Oriented Psychiatric: Yes: Alert, Oriented Labs: CBC, BMP 09/22/17 07:42 09/22/17 07:42 Assessment/Plan 57 year old female with PMHx of breast cancer s/p radiation, DM, HTN, hyperlipidemia, asthma, rheumatoid arthritis, who presented to the ED with nausea, vomiting, diarrhea x4 days and left leg erythema. Nausea/vomiting/diarrhea [place] Left leg cellulitis Chronic anemia edema of the left leg plan continue ertapenam elevation of the leg
[2017-09-22] MEDS: FUROSEMIDE 40 MG TABLET (FP) PO SCH (14:15)
--- NOTE | 2017-09-22 21:08 | PN ---
Progress Note (short form) - Note Progress Note: Renal follow up for [place] on CKD Pt seen and examined at the bedside feels better no sob, chest pain, abd pain Vital Signs Temperature 99.1 F 09/22/17 17:20 Pulse Rate 63 09/22/17 17:20 Respiratory Rate 20 09/22/17 17:20 Blood Pressure 163/69 09/22/17 17:20 O2 Sat by Pulse Oximetry (%) 96 09/22/17 09:00 Intake & Output 09/19/17 09/20/17 09/21/17 09/22/17 23:59 23:59 23:59 23:59 Intake Total 730 715 410 9509 Balance 730 945 922 2940 Weight 133.356 kg 133.356 kg NAD awake and alert CTA + edema in LE CBC, BMP 09/22/17 07:42 09/22/17 07:42 Current Medications Acetaminophen (Tylenol Oral Solution -) 650 mg PO Q6H PRN PRN Reason: PAIN LEVEL 1 - 3 Last Admin: 09/19/17 20:48 Dose: 650 mg Albuterol Sulfate (Ventolin 0.083% Nebulizer Soln -) 1 amp NEB Q6H PRN PRN Reason: SHORT OF BREATH/WHEEZING Last Admin: 09/21/17 22:48 Dose: 1 amp Atorvastatin Calcium (Lipitor -) 20 mg PO HS [facility] Last Admin: 09/21/17 21:28 Dose: 20 mg Bacitracin (Bacitracin -) 1 applic TP DAILY [facility] Last Admin: 09/22/17 09:36 Dose: 1 applic Budesonide/Formoterol Fumarate (Symbicort 160/4.5mcg -) 1 puff IH BID [facility] Last Admin: 09/22/17 09:38 Dose: 1 puff Carvedilol (Coreg -) 25 mg PO BID [facility] Last Admin: 09/22/17 09:37 Dose: 25 mg Docusate Sodium (Colace -) 100 mg PO DAILY [facility] Last Admin: 09/22/17 09:37 Dose: 100 mg Enalapril Maleate (Vasotec -) 20 mg PO BID [facility] Last Admin: 09/22/17 09:39 Dose: 20 mg Folic Acid (Folic Acid -) 1 mg PO DAILY [facility] Last Admin: 09/22/17 09:37 Dose: 1 mg Furosemide (Lasix -) 40 mg PO DAILY [facility] Last Admin: 09/22/17 14:15 Dose: 40 mg Hydroxychloroquine Sulfate (Plaquenil -) 400 mg PO BID [facility] Last Admin: 09/22/17 09:38 Dose: 400 mg Ertapenem 1 gm/ Sodium (Chloride) 100 mls @ 100 mls/hr IVPB DAILY [facility]; Protocol Last Admin: 09/22/17 09:37 Dose: 100 mls/hr Insulin Aspart (Novolog Vial Sliding Scale -) 1 vial SQ ACHS [facility]; Protocol Last Admin: 09/22/17 16:48 Dose: 4 unit Insulin Detemir (Levemir Vial) 15 units SQ AM [facility] Last Admin: 09/22/17 06:05 Dose: 15 unit Methotrexate (Mexate -) 20 mg PO Gerardo@1000 [facility] Last Admin: 09/21/17 10:49 Dose: 20 mg Montelukast Sodium (Singulair -) 10 mg PO HS [facility] Last Admin: 09/21/17 21:28 Dose: 10 mg Non-Formulary Medication (Mesalamine [Pentasa]) 1,000 mg PO QID [facility] Pantoprazole Sodium (Protonix -) 40 mg PO DAILY [facility] Last Admin: 09/22/17 09:38 Dose: 40 mg Pregabalin (Lyrica -) 75 mg PO TID [facility] Last Admin: 09/22/17 14:14 Dose: 75 mg Tamoxifen Citrate (Tamoxifen Citrate) 20 mg PO DAILY [facility] Last Admin: 09/22/17 09:39 Dose: 20 mg 57 year old woman with PMhx of CKD Stage 3 (baseline Cr ~1.7), IDDM, Hypertension, Breast Ca on Tamoxifin, RA who presented with LE redness and pain and N/V and found to have [place] on CKD with Cr of 2.3. #[place] on CKD #CKD Stage 3 #Proteinuria #LE cellulitis #Hypertension #LE edema Renal function slighty improved and stable continue BID ACEi will start oral Lasix once daily for mangement of LE edema trend BMP, Mg Riley Rashid DO
[2017-09-22] MEDS: ACETAMINOPHEN 650 MG/20.3 ML ORAL SOLUTION (CUPS) PO PRN (21:14)
[2017-09-22] MEDS: MONTELUKAST NA 10 MG TABLET PO SCH (21:16)
[2017-09-22] MEDS: ATORVASTATIN CA 20 MG TABLET (FP) PO SCH (21:16)
[2017-09-22] MEDS: ALBUTEROL SO4 0.083% IH SOL 2.5 MG/3 ML VIAL.NEB. NEB PRN (21:48)
[2017-09-23] MEDS: INSULIN SLIDING SCALE (NOVOLOG) 1 VIAL SQ SCH ×4 (06:02→21:45)
[2017-09-23] MEDS: PREGABALIN 75 MG CAPSULE PO SCH ×3 (06:02→21:41)
[2017-09-23] MEDS: INSULIN (LEVEMIR) 100 UNITS/ML UNITS SQ SCH (06:03)
[2017-09-23 08:04] LABS: CHLORIDE 110 mmol/L (98-107); POTASSIUM 3.9 mmol/L (3.5-5.1); SODIUM 141 mmol/L (136-145)
[2017-09-23 08:07] LABS: ANION GAP 6 (8-16); BLOOD UREA NITROGEN 19 mg/dL (7-18); CALCIUM 8.4 mg/dL (8.5-10.1); CO2 25 mmol/L (21-32); CREATININE 2.1 mg/dL (0.55-1.02); GLUCOSE,RANDOM 202 mg/dL (74-106); MAGNESIUM 2.2 mg/dL (1.8-2.4)
[2017-09-23] MEDS: CARVEDILOL 25 MG TABLET (FP) PO SCH ×2 (10:08→21:40)
[2017-09-23] MEDS: ENALAPRIL MALEATE 10 MG TABLET (FP) PO SCH ×2 (10:08→21:42)
[2017-09-23] MEDS: PANTOPRAZOLE 40 MG TABLET (FP) PO SCH (10:08)
[2017-09-23] MEDS: FOLIC ACID 1 MG TABLET (FP) PO SCH (10:08)
[2017-09-23] MEDS: DOCUSATE SODIUM 100 MG CAPSULE (FP) PO SCH (10:08)
[2017-09-23] MEDS: FUROSEMIDE 40 MG TABLET (FP) PO SCH (10:08)
[2017-09-23] MEDS: TAMOXIFEN CITRATE 10 MG TABLET PO SCH (10:09)
[2017-09-23] MEDS: ERTAPENEM SODIUM 1 GM in SODIUM CHLORIDE 100 ML IVPB SCH (10:09)
[2017-09-23] MEDS: HYDROXYCHLOROQUINE SO4 200 MG TABLET (FP) PO SCH ×2 (10:09→21:41)
[2017-09-23] MEDS: BACITRACIN 15 GM TUBE TOPICAL OINTMENT TP SCH (10:10)
[2017-09-23] MEDS: BUDESONIDE/FORMETEROL FUMARATE 160/4.5 mcg INHALER IH SCH ×2 (10:10→21:42)
[2017-09-23 10:57] LABS: BASO % 0.9 % (0-2.0); EOS % 1.7 % (0-4.5); HEMATOCRIT 24.2 % (32.4-45.2); HEMOGLOBIN 7.8 GM/dL (10.7-15.3); LYMPH % 8.5 % (8-40); MCH 26.3 pg (25.7-33.7); MONO % 2.7 % (3.8-10.2); NEUT % 86.2 % (42.8-82.8); PLATELET COUNT 202 K/MM3 (134-434); RBC 2.95 M/mm3 (3.60-5.2); RDW 17.9 % (11.6-15.6); WHITE BLOOD COUNT 7.8 K/mm3 (4.0-10.0)
--- NOTE | 2017-09-23 11:59 | PN ---
Progress Note, Physician History of Present Illness: doing well erythema improving swelling still persists pain still present - Current Medication List Current Medications: Active Medications Acetaminophen (Tylenol Oral Solution -) 650 mg PO Q6H PRN PRN Reason: PAIN LEVEL 1 - 3 Last Admin: 09/22/17 21:14 Dose: 650 mg Albuterol Sulfate (Ventolin 0.083% Nebulizer Soln -) 1 amp NEB Q6H PRN PRN Reason: SHORT OF BREATH/WHEEZING Last Admin: 09/22/17 21:48 Dose: 1 amp Atorvastatin Calcium (Lipitor -) 20 mg PO HS [facility] Last Admin: 09/22/17 21:16 Dose: 20 mg Bacitracin (Bacitracin -) 1 applic TP DAILY [facility] Last Admin: 09/23/17 10:10 Dose: 1 applic Budesonide/Formoterol Fumarate (Symbicort 160/4.5mcg -) 1 puff IH BID [facility] Last Admin: 09/23/17 10:10 Dose: 1 puff Carvedilol (Coreg -) 25 mg PO BID [facility] Last Admin: 09/23/17 10:08 Dose: 25 mg Docusate Sodium (Colace -) 100 mg PO DAILY [facility] Last Admin: 09/23/17 10:08 Dose: 100 mg Enalapril Maleate (Vasotec -) 20 mg PO BID [facility] Last Admin: 09/23/17 10:08 Dose: 20 mg Folic Acid (Folic Acid -) 1 mg PO DAILY [facility] Last Admin: 09/23/17 10:08 Dose: 1 mg Furosemide (Lasix -) 40 mg PO DAILY [facility] Last Admin: 09/23/17 10:08 Dose: 40 mg Hydroxychloroquine Sulfate (Plaquenil -) 400 mg PO BID [facility] Last Admin: 09/23/17 10:09 Dose: 400 mg Ertapenem 1 gm/ Sodium (Chloride) 100 mls @ 100 mls/hr IVPB DAILY [facility]; Protocol Last Admin: 09/23/17 10:09 Dose: 100 mls/hr Insulin Aspart (Novolog Vial Sliding Scale -) 1 vial SQ ACHS [facility]; Protocol Last Admin: 09/23/17 11:51 Dose: 6 unit Insulin Detemir (Levemir Vial) 15 units SQ AM [facility] Last Admin: 09/23/17 06:03 Dose: 15 unit Methotrexate (Mexate -) 20 mg PO Gerardo@1000 [facility] Last Admin: 09/21/17 10:49 Dose: 20 mg Montelukast Sodium (Singulair -) 10 mg PO HS [facility] Last Admin: 09/22/17 21:16 Dose: 10 mg Non-Formulary Medication (Mesalamine [Pentasa]) 1,000 mg PO QID [facility] Pantoprazole Sodium (Protonix -) 40 mg PO DAILY [facility] Last Admin: 09/23/17 10:08 Dose: 40 mg Pregabalin (Lyrica -) 75 mg PO TID [facility] Last Admin: 09/23/17 06:02 Dose: 75 mg Tamoxifen Citrate (Tamoxifen Citrate) 20 mg PO DAILY [facility] Last Admin: 09/23/17 10:09 Dose: 20 mg - Objective Vital Signs: Vital Signs Temperature 98.4 F 09/23/17 06:54 Pulse Rate 66 09/23/17 06:54 Respiratory Rate 20 09/23/17 06:54 Blood Pressure 165/82 09/23/17 06:54 O2 Sat by Pulse Oximetry (%) 100 09/22/17 21:00 Constitutional: Yes: No Distress, Calm, Obese Cardiovascular: Yes: S1, S2 Respiratory: Yes: Regular, CTA Bilaterally Gastrointestinal: Yes: Normal Bowel Sounds, Soft Musculoskeletal: Yes: WNL Extremities: Yes: Other Edema: LLE: 2+ Neurological: Yes: Alert, Oriented Psychiatric: Yes: Alert, Oriented Labs: CBC, BMP 09/23/17 06:55 09/23/17 06:55 Assessment/Plan 57 year old female with PMHx of breast cancer s/p radiation, DM, HTN, hyperlipidemia, asthma, rheumatoid arthritis, who presented to the ED with nausea, vomiting, diarrhea x4 days and left leg erythema. Nausea/vomiting/diarrhea [place] Left leg cellulitis Chronic anemia edema of the left leg plan continue ertapenam elevation of the leg will see how patient does tomorrow then final plan
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
[2017-09-23] MEDS ORDERED: IRON SUCROSE INJECTION 200 MG in SODIUM CHLORIDE 100 ML IVPB ONE (13:00)
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
[2017-09-23 15:53] LABS: ALBUMIN 2.3 g/dl (3.4-5.0); PHOSPHOROUS 4.3 mg/dL (2.5-4.9); SGOT/AST 26 U/L (15-37); SGPT/ALT 22 U/L (12-78); TOT PROT 6.4 g/dl (6.4-8.2)
[2017-09-23 15:54] LABS: ALK PHOS 59 U/L (45-117); BILIRUBIN,TOTAL 0.5 mg/dL (0.2-1.0)
[2017-09-23] MEDS: ACETAMINOPHEN 650 MG/20.3 ML ORAL SOLUTION (CUPS) PO PRN (17:13)
--- NOTE | 2017-09-23 17:24 | PN ---
Progress Note (short form) - Note Progress Note: Renal follow up for [place] on CKD Pt seen and examined at the bedside no acute complaints has continued pain in left leg getting iron infusion no CP, SOB, Abd pain, N/V/D Vital Signs Temperature 98.8 F 09/23/17 17:01 Pulse Rate 69 09/23/17 17:01 Respiratory Rate 20 09/23/17 17:01 Blood Pressure 148/70 09/23/17 17:01 O2 Sat by Pulse Oximetry (%) 98 09/23/17 09:00 Intake & Output 09/20/17 09/21/17 09/22/17 09/23/17 23:59 23:59 23:59 23:59 Intake Total 482 041 1471 1080 Balance 987 882 2065 1080 Weight 133.356 kg NAD awake and alert CTA + edema in LE CBC, BMP 09/23/17 06:55 09/23/17 06:55 Current Medications Acetaminophen (Tylenol Oral Solution -) 650 mg PO Q6H PRN PRN Reason: PAIN LEVEL 1 - 3 Last Admin: 09/23/17 17:13 Dose: 650 mg Albuterol Sulfate (Ventolin 0.083% Nebulizer Soln -) 1 amp NEB Q6H PRN PRN Reason: SHORT OF BREATH/WHEEZING Last Admin: 09/22/17 21:48 Dose: 1 amp Atorvastatin Calcium (Lipitor -) 20 mg PO HS [facility] Last Admin: 09/22/17 21:16 Dose: 20 mg Bacitracin (Bacitracin -) 1 applic TP DAILY [facility] Last Admin: 09/23/17 10:10 Dose: 1 applic Budesonide/Formoterol Fumarate (Symbicort 160/4.5mcg -) 1 puff IH BID [facility] Last Admin: 09/23/17 10:10 Dose: 1 puff Carvedilol (Coreg -) 25 mg PO BID [facility] Last Admin: 09/23/17 10:08 Dose: 25 mg Docusate Sodium (Colace -) 100 mg PO DAILY [facility] Last Admin: 09/23/17 10:08 Dose: 100 mg Enalapril Maleate (Vasotec -) 20 mg PO BID [facility] Last Admin: 09/23/17 10:08 Dose: 20 mg Folic Acid (Folic Acid -) 1 mg PO DAILY [facility] Last Admin: 09/23/17 10:08 Dose: 1 mg Furosemide (Lasix -) 40 mg PO DAILY [facility] Last Admin: 09/23/17 10:08 Dose: 40 mg Hydroxychloroquine Sulfate (Plaquenil -) 400 mg PO BID [facility] Last Admin: 09/23/17 10:09 Dose: 400 mg Ertapenem 1 gm/ Sodium (Chloride) 100 mls @ 100 mls/hr IVPB DAILY [facility]; Protocol Last Admin: 09/23/17 10:09 Dose: 100 mls/hr Insulin Aspart (Novolog Vial Sliding Scale -) 1 vial SQ ACHS [facility]; Protocol Last Admin: 09/23/17 17:14 Dose: 4 unit Insulin Detemir (Levemir Vial) 25 units SQ AM VINCE Methotrexate (Mexate -) 20 mg PO Gerardo@1000 [facility] Last Admin: 09/21/17 10:49 Dose: 20 mg Montelukast Sodium (Singulair -) 10 mg PO HS [facility] Last Admin: 09/22/17 21:16 Dose: 10 mg Non-Formulary Medication (Mesalamine [Pentasa]) 1,000 mg PO QID [facility] Pantoprazole Sodium (Protonix -) 40 mg PO DAILY [facility] Last Admin: 09/23/17 10:08 Dose: 40 mg Pregabalin (Lyrica -) 75 mg PO TID [facility] Last Admin: 09/23/17 14:56 Dose: 75 mg Tamoxifen Citrate (Tamoxifen Citrate) 20 mg PO DAILY [facility] Last Admin: 09/23/17 10:09 Dose: 20 mg 57 year old woman with PMhx of CKD Stage 3 (baseline Cr ~1.7), IDDM, Hypertension, Breast Ca on Tamoxifin, RA who presented with LE redness and pain and N/V and found to have [place] on CKD with Cr of 2.3. #[place] on CKD #CKD Stage 3 #Proteinuria #LE cellulitis #Hypertension #LE edema Renal function stable at this time continue Enalapril and Lasix trend renal function and electrolytes continue Abx for LE avoid nephrotoxins Riley Rashid DO
[2017-09-23] MEDS ORDERED: PT OWN MED DRAWER 7, Y5N ONE (21:39)
[2017-09-23] MEDS: ATORVASTATIN CA 20 MG TABLET (FP) PO SCH (21:40)
[2017-09-23] MEDS: MONTELUKAST NA 10 MG TABLET PO SCH (21:42)
[2017-09-23 22:57] LABS: URINE APPEARANCE CLEAR; URINE BILIRUBIN NEGATIVE (<2.0 mg/dL); URINE BLOOD 1+ (NEGATIVE); URINE COLOR LTYELLOW; URINE GLUCOSE (UA) 2+ (NEGATIVE); URINE KETONE NEGATIVE (NEGATIVE); URINE LEUK ESTERASE NEGATIVE (NEGATIVE); URINE NITRITE NEGATIVE (NEGATIVE); URINE UROBILINOGEN NEGATIVE mg/dL (0.2-1.0)
[2017-09-23 23:14] LABS: URINE PROTEIN 3+ (NEGATIVE)
[2017-09-23 23:17] LABS: EPI CELLS RARE /HPF (FEW); URINE MUCUS RARE
[2017-09-24] MEDS: INSULIN SLIDING SCALE (NOVOLOG) 1 VIAL SQ SCH ×4 (06:02→23:39)
[2017-09-24] MEDS: PREGABALIN 75 MG CAPSULE PO SCH ×3 (06:02→23:38)
[2017-09-24] MEDS: INSULIN (LEVEMIR) 100 UNITS/ML UNITS SQ SCH (06:03)
[2017-09-24 07:00] LABS: CHLORIDE 111 mmol/L (98-107); SODIUM 142 mmol/L (136-145)
[2017-09-24] MEDS ORDERED: INSULIN (NOVOLOG) ASPART 100 UNITS/ML 10ML VIAL ONE (07:07)
[2017-09-24 07:42] LABS: ANION GAP 9 (8-16); BLOOD UREA NITROGEN 19 mg/dL (7-18); CALCIUM 8.5 mg/dL (8.5-10.1); CO2 22 mmol/L (21-32); GLUCOSE,RANDOM 161 mg/dL (74-106); MAGNESIUM 2.2 mg/dL (1.8-2.4); PHOSPHOROUS 3.8 mg/dL (2.5-4.9)
[2017-09-24] MEDS ORDERED: PT OWN MED DRAWER 7, Y5N ONE (09:36)
[2017-09-24] MEDS: CARVEDILOL 25 MG TABLET (FP) PO SCH ×2 (09:45→23:38)
[2017-09-24] MEDS: FUROSEMIDE 40 MG TABLET (FP) PO SCH (09:45)
[2017-09-24] MEDS: FOLIC ACID 1 MG TABLET (FP) PO SCH (09:45)
[2017-09-24] MEDS: ERTAPENEM SODIUM 1 GM in SODIUM CHLORIDE 100 ML IVPB SCH (09:45)
[2017-09-24] MEDS: PANTOPRAZOLE 40 MG TABLET (FP) PO SCH (09:45)
[2017-09-24] MEDS: ENALAPRIL MALEATE 10 MG TABLET (FP) PO SCH ×2 (09:45→23:39)
[2017-09-24] MEDS: DOCUSATE SODIUM 100 MG CAPSULE (FP) PO SCH (09:46)
[2017-09-24] MEDS: HYDROXYCHLOROQUINE SO4 200 MG TABLET (FP) PO SCH ×2 (09:46→23:39)
[2017-09-24] MEDS: BUDESONIDE/FORMETEROL FUMARATE 160/4.5 mcg INHALER IH SCH ×2 (09:46→23:39)
[2017-09-24] MEDS: BACITRACIN 15 GM TUBE TOPICAL OINTMENT TP SCH (09:46)
[2017-09-24] MEDS: TAMOXIFEN CITRATE 10 MG TABLET PO SCH (09:46)
[2017-09-24] MEDS ORDERED: FLUCONAZOLE 150 MG TABLET PO ONE (11:07)
--- NOTE | 2017-09-24 12:31 | PN ---
Progress Note (short form) - Note Progress Note: Renal follow up for [place] on CKD Pt seen and examined at the bedside feels fatigued no sob, chest pain, abd pain poor appetite Vital Signs Temperature 98.1 F 09/24/17 09:44 Pulse Rate 74 09/24/17 09:44 Respiratory Rate 18 09/24/17 09:44 Blood Pressure 150/60 09/24/17 09:44 O2 Sat by Pulse Oximetry (%) 98 09/23/17 21:00 Intake & Output 09/21/17 09/22/17 09/23/17 09/24/17 23:59 23:59 23:59 23:59 Intake Total 780 1320 1420 300 Output Total 400 Balance 780 1320 1020 300 Weight 133.356 kg NAD awake and alert CTA + edema in LE CBC, BMP 09/23/17 06:55 09/24/17 06:00 Current Medications Acetaminophen (Tylenol Oral Solution -) 650 mg PO Q6H PRN PRN Reason: PAIN LEVEL 1 - 3 Last Admin: 09/23/17 17:13 Dose: 650 mg Albuterol Sulfate (Ventolin 0.083% Nebulizer Soln -) 1 amp NEB Q6H PRN PRN Reason: SHORT OF BREATH/WHEEZING Last Admin: 09/22/17 21:48 Dose: 1 amp Atorvastatin Calcium (Lipitor -) 20 mg PO HS [facility] Last Admin: 09/23/17 21:40 Dose: 20 mg Bacitracin (Bacitracin -) 1 applic TP DAILY [facility] Last Admin: 09/24/17 09:46 Dose: 1 applic Budesonide/Formoterol Fumarate (Symbicort 160/4.5mcg -) 1 puff IH BID [facility] Last Admin: 09/24/17 09:46 Dose: 1 puff Carvedilol (Coreg -) 25 mg PO BID [facility] Last Admin: 09/24/17 09:45 Dose: 25 mg Docusate Sodium (Colace -) 100 mg PO DAILY [facility] Last Admin: 09/24/17 09:46 Dose: Not Given Enalapril Maleate (Vasotec -) 20 mg PO BID [facility] Last Admin: 09/24/17 09:45 Dose: 20 mg Folic Acid (Folic Acid -) 1 mg PO DAILY [facility] Last Admin: 09/24/17 09:45 Dose: 1 mg Furosemide (Lasix -) 40 mg PO DAILY [facility] Last Admin: 09/24/17 09:45 Dose: 40 mg Hydroxychloroquine Sulfate (Plaquenil -) 400 mg PO BID [facility] Last Admin: 09/24/17 09:46 Dose: 400 mg Ertapenem 1 gm/ Sodium (Chloride) 100 mls @ 100 mls/hr IVPB DAILY [facility]; Protocol Last Admin: 09/24/17 09:45 Dose: 100 mls/hr Insulin Aspart (Novolog Vial Sliding Scale -) 1 vial SQ ACHS [facility]; Protocol Last Admin: 09/24/17 06:02 Dose: 4 unit Insulin Detemir (Levemir Vial) 25 units SQ AM [facility] Last Admin: 09/24/17 06:03 Dose: 25 units Methotrexate (Mexate -) 20 mg PO Gerardo@1000 [facility] Last Admin: 09/21/17 10:49 Dose: 20 mg Montelukast Sodium (Singulair -) 10 mg PO HS [facility] Last Admin: 09/23/17 21:42 Dose: 10 mg Non-Formulary Medication (Mesalamine [Pentasa]) 1,000 mg PO QID [facility] Pantoprazole Sodium (Protonix -) 40 mg PO DAILY [facility] Last Admin: 09/24/17 09:45 Dose: 40 mg Pregabalin (Lyrica -) 75 mg PO TID [facility] Last Admin: 09/24/17 06:02 Dose: 75 mg Tamoxifen Citrate (Tamoxifen Citrate) 20 mg PO DAILY [facility] Last Admin: 09/24/17 09:46 Dose: 20 mg 57 year old woman with PMhx of CKD Stage 3 (baseline Cr ~1.7), IDDM, Hypertension, Breast Ca on Tamoxifin, RA who presented with LE redness and pain and N/V and found to have [place] on CKD with Cr of 2.3. #[place] on CKD #CKD Stage 3 #Proteinuria #LE cellulitis #Hypertension #LE edema Renal function remains stable continue Lasix daily, Enalapril BID Trend BUN/Cr while inpatient check UPCR continue anemia management as per Jv Rashid DO
--- NOTE | 2017-09-24 13:04 | PN ---
Progress Note, Physician History of Present Illness: doing well still with some pain edema still present erythema resolved pain much better - Current Medication List Current Medications: Active Medications Acetaminophen (Tylenol Oral Solution -) 650 mg PO Q6H PRN PRN Reason: PAIN LEVEL 1 - 3 Last Admin: 09/23/17 17:13 Dose: 650 mg Atorvastatin Calcium (Lipitor -) 20 mg PO HS [facility] Last Admin: 09/23/17 21:40 Dose: 20 mg Bacitracin (Bacitracin -) 1 applic TP DAILY [facility] Last Admin: 09/24/17 09:46 Dose: 1 applic Budesonide/Formoterol Fumarate (Symbicort 160/4.5mcg -) 1 puff IH BID [facility] Last Admin: 09/24/17 09:46 Dose: 1 puff Carvedilol (Coreg -) 25 mg PO BID [facility] Last Admin: 09/24/17 09:45 Dose: 25 mg Docusate Sodium (Colace -) 100 mg PO DAILY [facility] Last Admin: 09/24/17 09:46 Dose: Not Given Enalapril Maleate (Vasotec -) 20 mg PO BID [facility] Last Admin: 09/24/17 09:45 Dose: 20 mg Folic Acid (Folic Acid -) 1 mg PO DAILY [facility] Last Admin: 09/24/17 09:45 Dose: 1 mg Furosemide (Lasix -) 40 mg PO DAILY [facility] Last Admin: 09/24/17 09:45 Dose: 40 mg Hydroxychloroquine Sulfate (Plaquenil -) 400 mg PO BID [facility] Last Admin: 09/24/17 09:46 Dose: 400 mg Ertapenem 1 gm/ Sodium (Chloride) 100 mls @ 100 mls/hr IVPB DAILY [facility]; Protocol Last Admin: 09/24/17 09:45 Dose: 100 mls/hr Insulin Aspart (Novolog Vial Sliding Scale -) 1 vial SQ ACHS [facility]; Protocol Last Admin: 09/24/17 12:57 Dose: 8 unit Insulin Detemir (Levemir Vial) 25 units SQ AM [facility] Last Admin: 09/24/17 06:03 Dose: 25 units Methotrexate (Mexate -) 20 mg PO Gerardo@1000 [facility] Last Admin: 09/21/17 10:49 Dose: 20 mg Montelukast Sodium (Singulair -) 10 mg PO HS [facility] Last Admin: 09/23/17 21:42 Dose: 10 mg Non-Formulary Medication (Mesalamine [Pentasa]) 1,000 mg PO QID [facility] Pantoprazole Sodium (Protonix -) 40 mg PO DAILY [facility] Last Admin: 09/24/17 09:45 Dose: 40 mg Pregabalin (Lyrica -) 75 mg PO TID [facility] Last Admin: 09/24/17 06:02 Dose: 75 mg Tamoxifen Citrate (Tamoxifen Citrate) 20 mg PO DAILY [facility] Last Admin: 09/24/17 09:46 Dose: 20 mg - Objective Vital Signs: Vital Signs Temperature 98.1 F 09/24/17 09:44 Pulse Rate 74 09/24/17 09:44 Respiratory Rate 18 09/24/17 09:44 Blood Pressure 150/60 09/24/17 09:44 O2 Sat by Pulse Oximetry (%) 98 09/23/17 21:00 Constitutional: Yes: No Distress, Calm Cardiovascular: Yes: S1, S2 Respiratory: Yes: Regular, CTA Bilaterally Gastrointestinal: Yes: Normal Bowel Sounds, Soft Musculoskeletal: Yes: WNL Extremities: Yes: Other Edema: LLE: 1+ Integumentary: Yes: WNL Neurological: Yes: Alert, Oriented Psychiatric: Yes: Alert, Oriented Labs: CBC, BMP 09/23/17 06:55 09/24/17 06:00 Assessment/Plan 57 year old female with PMHx of breast cancer s/p radiation, DM, HTN, hyperlipidemia, asthma, rheumatoid arthritis, who presented to the ED with nausea, vomiting, diarrhea x4 days and left leg erythema. Nausea/vomiting/diarrhea [place] Left leg cellulitis Chronic anemia edema of the left leg plan continue ertapenam can stop abx from tomorrow rest as per heam elevation of the leg
[2017-09-24 13:36] LABS: BASO % 1.1 % (0-2.0); EOS % 5.9 % (0-4.5); HEMATOCRIT 23.9 % (32.4-45.2); HEMOGLOBIN 7.8 GM/dL (10.7-15.3); LYMPH % 13.8 % (8-40); MCH 26.2 pg (25.7-33.7); MCHC 32.5 g/dl (32.0-36.0); MEAN CELL VOLUME 80.8 fl (80-96); MEAN PLT VOLUME 9.5 fl (7.5-11.1); MONO % 2.7 % (3.8-10.2); NEUT % 76.5 % (42.8-82.8); PLATELET COUNT 233 K/MM3 (134-434); RBC 2.96 M/mm3 (3.60-5.2); WHITE BLOOD COUNT 4.9 K/mm3 (4.0-10.0)
[2017-09-24 14:25] LABS: ANISOCYTOSIS 1+; PLATELET ESTIMATE NORMAL; TEAR DROP CELLS 1+
--- NOTE | 2017-09-24 17:52 | PN ---
Physical Exam: SUBJECTIVE: Patient seen and examined at bedside. Complains of fatigue. OBJECTIVE: Vital Signs Period Temp Pulse Resp BP Sys/Ronquillo Pulse Ox Last 24 Hr 98.1 F-99.6 F 65-85 18-20 130-150/58-86 98-98 GENERAL: The patient is awake, alert, and fully oriented, in no acute distress. Appears fatigued. LUNGS: Breath sounds equal, clear to auscultation bilaterally, no wheezes, no crackles, no accessory muscle use. HEART: Regular rate and rhythm, S1, S2 without murmur, rub or gallop. ABDOMEN: Soft, nontender, obese, + bowel sounds, no guarding, no rebound EXTREMITIES: LLE swelling is resolved. No erythema. NEUROLOGICAL: Cranial nerves II through XII grossly intact. Normal speech, gait not observed. Moves all extremities freely. SKIN: Very mild fungal rash under left breast. Healed cade around left breast, skin intact, no erythema or edema Laboratory Results - last 24 hr 09/23/17 09/23/17 09/23/17 06:55 21:30 21:44 WBC RBC Hgb Hct MCV MCH MCHC RDW Plt Count MPV Absolute Neuts (auto) Neutrophils % Neutrophils % (Manual) Band Neutrophils % Lymphocytes % Lymphocytes % (Manual) Monocytes % Monocytes % (Manual) Eosinophils % Eosinophils % (Manual) Basophils % Basophils % (Manual) Myelocytes % (Man) Promyelocytes % (Man) Blast Cells % (Manual) Nucleated RBC % Metamyelocytes Platelet Estimate Anisocytosis Tear Drop Cells ESR Sodium Potassium Chloride Carbon Dioxide Anion Gap BUN Creatinine Creat Clearance w eGFR No Result Required. POC Glucometer 172 Random Glucose Calcium Phosphorus Magnesium Ferritin LD Total C-Reactive Protein Urine Color Ltyellow Urine Appearance Clear Urine pH 5.0 D Ur Specific [place] 1.010 Urine Protein 3+ H Urine Glucose (UA) 2+ H Urine Ketones Negative Urine Blood 1+ H Urine Nitrite Negative Urine Bilirubin Negative Urine Urobilinogen Negative Ur Leukocyte Esterase Negative Urine WBC (Auto) 8 Urine RBC (Auto) 7 Ur Epithelial Cells Rare Urine Mucus Rare 09/24/17 09/24/17 09/24/17 06:00 06:00 06:00 WBC RBC Hgb Hct MCV MCH MCHC RDW Plt Count MPV Absolute Neuts (auto) Neutrophils % Neutrophils % (Manual) Band Neutrophils % Lymphocytes % Lymphocytes % (Manual) Monocytes % Monocytes % (Manual) Eosinophils % Eosinophils % (Manual) Basophils % Basophils % (Manual) Myelocytes % (Man) Promyelocytes % (Man) Blast Cells % (Manual) Nucleated RBC % Metamyelocytes Platelet Estimate Anisocytosis Tear Drop Cells ESR 116 H Sodium 142 Potassium 4.0 Chloride 111 H Carbon Dioxide 22 Anion Gap 9 BUN 19 H Creatinine 2.0 H Creat Clearance w eGFR POC Glucometer Random Glucose 161 H Calcium 8.5 Phosphorus 3.8 Magnesium 2.2 Ferritin 330.3 H LD Total 348 H C-Reactive Protein 2.6 H Urine Color Urine Appearance Urine pH Ur Specific [place] Urine Protein Urine Glucose (UA) Urine Ketones Urine Blood Urine Nitrite Urine Bilirubin Urine Urobilinogen Ur Leukocyte Esterase Urine WBC (Auto) Urine RBC (Auto) Ur Epithelial Cells Urine Mucus 09/24/17 09/24/17 09/24/17 06:01 06:24 12:12 WBC 4.9 D RBC 2.96 L Hgb 7.8 L Hct 23.9 L MCV 80.8 MCH 26.2 MCHC 32.5 RDW 18.0 H Plt Count 233 MPV 9.5 Absolute Neuts (auto) 3.7 Neutrophils % 76.5 Neutrophils % (Manual) 83.0 H Band Neutrophils % 0.0 Lymphocytes % 13.8 D Lymphocytes % (Manual) 6.0 L D Monocytes % 2.7 L Monocytes % (Manual) 3 L Eosinophils % 5.9 H D Eosinophils % (Manual) 7.0 H Basophils % 1.1 Basophils % (Manual) 1.0 D Myelocytes % (Man) 0 D Promyelocytes % (Man) 0 Blast Cells % (Manual) 0 Nucleated RBC % 0 Metamyelocytes 0 Platelet Estimate Normal Anisocytosis 1+ Tear Drop Cells 1+ ESR Sodium Potassium Chloride Carbon Dioxide Anion Gap BUN Creatinine Creat Clearance w eGFR POC Glucometer 183 237 Random Glucose Calcium Phosphorus Magnesium Ferritin LD Total C-Reactive Protein Urine Color Urine Appearance Urine pH Ur Specific [place] Urine Protein Urine Glucose (UA) Urine Ketones Urine Blood Urine Nitrite Urine Bilirubin Urine Urobilinogen Ur Leukocyte Esterase Urine WBC (Auto) Urine RBC (Auto) Ur Epithelial Cells Urine Mucus 09/24/17 17:03 WBC RBC Hgb Hct MCV MCH MCHC RDW Plt Count MPV Absolute Neuts (auto) Neutrophils % Neutrophils % (Manual) Band Neutrophils % Lymphocytes % Lymphocytes % (Manual) Monocytes % Monocytes % (Manual) Eosinophils % Eosinophils % (Manual) Basophils % Basophils % (Manual) Myelocytes % (Man) Promyelocytes % (Man) Blast Cells % (Manual) Nucleated RBC % Metamyelocytes Platelet Estimate Anisocytosis Tear Drop Cells ESR Sodium Potassium Chloride Carbon Dioxide Anion Gap BUN Creatinine Creat Clearance w eGFR POC Glucometer 184 Random Glucose Calcium Phosphorus Magnesium Ferritin LD Total C-Reactive Protein Urine Color Urine Appearance Urine pH Ur Specific [place] Urine Protein Urine Glucose (UA) Urine Ketones Urine Blood Urine Nitrite Urine Bilirubin Urine Urobilinogen Ur Leukocyte Esterase Urine WBC (Auto) Urine RBC (Auto) Ur Epithelial Cells Urine Mucus Active Medications Generic Name Dose Route Start Last Admin Trade Name Freq PRN Reason Stop Dose Admin Acetaminophen 650 mg 09/19/17 20:33 09/23/17 17:13 Tylenol Oral Solution - PO 650 mg Q6H PRN Administration PAIN LEVEL 1 - 3 Atorvastatin Calcium 20 mg 09/18/17 22:00 09/23/17 21:40 Lipitor - PO 20 mg HS VINCE Administration Bacitracin 1 applic 09/19/17 10:00 09/24/17 09:46 Bacitracin - TP 1 applic DAILY VINCE Administration Budesonide/Formoterol Fumarate 1 puff 09/18/17 22:00 09/24/17 09:46 Symbicort 160/4.5mcg - IH 1 puff BID VINCE Administration Carvedilol 25 mg 09/19/17 22:00 09/24/17 09:45 Coreg - PO 25 mg BID VINCE Administration Docusate Sodium 100 mg 09/19/17 10:00 09/24/17 09:46 Colace - PO Not Given DAILY [facility] Enalapril Maleate 20 mg 09/19/17 15:17 09/24/17 09:45 Vasotec - PO 20 mg BID VINCE Administration Folic Acid 1 mg 09/19/17 10:00 09/24/17 09:45 Folic Acid - PO 1 mg DAILY VINCE Administration Furosemide 40 mg 09/22/17 13:00 09/24/17 09:45 Lasix - PO 40 mg DAILY VINCE Administration Hydroxychloroquine Sulfate 400 mg 09/19/17 22:00 09/24/17 09:46 Plaquenil - PO 400 mg BID VINCE Administration Ertapenem 1 gm/ Sodium 100 mls @ 100 mls/hr 09/18/17 20:00 09/24/17 09:45 Chloride IVPB 100 mls/hr DAILY VINCE Administration Protocol Insulin Aspart 1 vial 09/21/17 21:34 09/24/17 17:37 Novolog Vial Sliding Scale - SQ 2 unit ACHS VINCE Administration Protocol Insulin Detemir 25 units 09/23/17 12:25 09/24/17 06:03 Levemir Vial SQ 25 units AM VINCE Administration Methotrexate 20 mg 09/21/17 10:00 09/21/17 10:49 Mexate - PO 20 mg Gerardo@1000 VINCE Administration Montelukast Sodium 10 mg 09/18/17 22:00 09/23/17 21:42 Singulair - PO 10 mg HS VINCE Administration Non-Formulary Medication 1,000 mg 09/19/17 14:00 Mesalamine [Pentasa] PO QID VINCE Pantoprazole Sodium 40 mg 09/19/17 10:00 09/24/17 09:45 Protonix - PO 40 mg DAILY VINCE Administration Pregabalin 75 mg 09/19/17 14:00 09/24/17 14:21 Lyrica - PO 75 mg TID VINCE Administration Tamoxifen Citrate 20 mg 09/19/17 10:00 09/24/17 09:46 Tamoxifen Citrate PO 20 mg DAILY VINCE Administration ASSESSMENT/PLAN 57 year-old patient with a PMH significant for HTN, HLD, asthma, RA, IDDM, anemia requiring transfusions, and breast cancer s/p radiation. Admitted for LLE cellulitis following a razor wound during a pedicure. LLE cellulitis, resolved --continue ertapenem (day #6); last dose tomorrow Gastroenteritis, resolved [place] on CKD --likely due to low volume state, multifactorial: diarrhea, infection, MAGALY, diuretics --Cr 2.0 ~ baseline Anemia --last transfused 09/20, 1 U PRBC --Hgb 7.8 with symptoms of fatigue --discussed with Dr. Whitley, 2U PRBC ordered Breast cancer --s/p radiation complicated by cade which appear well-healed --continue tamoxifen Fungal rash --nystatin under left breast Rheumatoid arthritis --continue mesalamine, Plaquenil, methotrexate, Lyrica Asthma --stable --continue Symbicort, albuterol nebs IDDM --HgbA1C 8.8 --sugars have been running high, increased Levemir to 25U --Novolog sliding scale Hypertension --continue enlaparil, carvedilol Hyperlipidemia --continue Lipitor FEN Fluids: PO intake adequate Electrolytes: replete as indicated Nutrition: diabetic, low sodium DVT prophylaxis: hold chemical prophylaxis due to anemia; right leg SCD; oob; ambulation Physical therapy Dispo: continues to require inpatient care. Full code. Visit type - Emergency Visit Emergency Visit: Yes ED Registration Date: 09/18/17 Care time: The patient presented to the Emergency Department on the above date and was hospitalized for further evaluation of their emergent condition. - New Patient This patient is new to me today: No - Critical Care Critical Care patient: No
[2017-09-24] MEDS: ATORVASTATIN CA 20 MG TABLET (FP) PO SCH (23:38)
[2017-09-24] MEDS: MONTELUKAST NA 10 MG TABLET PO SCH (23:39)
[2017-09-25] MEDS: INSULIN (LEVEMIR) 100 UNITS/ML UNITS SQ SCH (06:44)
[2017-09-25] MEDS: PREGABALIN 75 MG CAPSULE PO SCH ×3 (06:44→22:01)
[2017-09-25] MEDS: INSULIN SLIDING SCALE (NOVOLOG) 1 VIAL SQ SCH ×4 (06:45→22:03)
[2017-09-25 07:58] LABS: BASO % 0.7 % (0-2.0); EOS % 6.2 % (0-4.5); HEMATOCRIT 26.1 % (32.4-45.2); HEMOGLOBIN 8.6 GM/dL (10.7-15.3); LYMPH % 13.2 % (8-40); MCHC 32.9 g/dl (32.0-36.0); MEAN PLT VOLUME 8.8 fl (7.5-11.1); NEUT % 76.9 % (42.8-82.8); PLATELET COUNT 256 K/MM3 (134-434); RDW 19.1 % (11.6-15.6); WHITE BLOOD COUNT 7.5 K/mm3 (4.0-10.0)
[2017-09-25 08:07] LABS: SERUM IRON SATURATION 73 % (15-55); TOTAL IRON BINDING CAPACITY 189 ug/dL (250-450); UIBC 51 ug/dL (131-425)
[2017-09-25 08:10] LABS: CHLORIDE 110 mmol/L (98-107); POTASSIUM 4.4 mmol/L (3.5-5.1); SODIUM 143 mmol/L (136-145)
[2017-09-25 08:19] LABS: ALBUMIN 2.3 g/dl (3.4-5.0); ALK PHOS 56 U/L (45-117); ANION GAP 10 (8-16); BILIRUBIN,TOTAL 0.4 mg/dL (0.2-1.0); BLOOD UREA NITROGEN 17 mg/dL (7-18); CALCIUM 8.6 mg/dL (8.5-10.1); CO2 23 mmol/L (21-32); GLUCOSE,RANDOM 186 mg/dL (74-106); MAGNESIUM 2.2 mg/dL (1.8-2.4); SGOT/AST 22 U/L (15-37); SGPT/ALT 26 U/L (12-78); TOT PROT 6.6 g/dl (6.4-8.2)
--- NOTE | 2017-09-25 09:16 | PN ---
Progress Note (short form) - Note Progress Note: Subjective: The patient was seen and examined at the bedside, she reports feeling better today S/p 1u PRBC overnight, was ordered for 2. Will receive the second unit now Current Medications Generic Name Dose Route Start Last Admin Trade Name Freq PRN Reason Stop Dose Admin Acetaminophen 650 mg 09/19/17 20:33 09/23/17 17:13 Tylenol Oral Solution - PO 650 mg Q6H PRN Administration PAIN LEVEL 1 - 3 Atorvastatin Calcium 20 mg 09/18/17 22:00 09/24/17 23:38 Lipitor - PO 20 mg HS VINCE Administration Bacitracin 1 applic 09/19/17 10:00 09/25/17 10:37 Bacitracin - TP 1 applic DAILY VINCE Administration Budesonide/Formoterol Fumarate 1 puff 09/18/17 22:00 09/25/17 10:36 Symbicort 160/4.5mcg - IH 1 puff BID VINCE Administration Carvedilol 25 mg 09/19/17 22:00 09/25/17 10:31 Coreg - PO 25 mg BID VINCE Administration Docusate Sodium 100 mg 09/19/17 10:00 09/25/17 11:37 Colace - PO Not Given DAILY VINCE Enalapril Maleate 20 mg 09/19/17 15:17 09/25/17 10:31 Vasotec - PO 20 mg BID VINCE Administration Folic Acid 1 mg 09/19/17 10:00 09/25/17 10:31 Folic Acid - PO 1 mg DAILY VINEC Administration Furosemide 40 mg 09/26/17 10:00 Lasix - PO DAILY [facility] Hydroxychloroquine Sulfate 400 mg 09/19/17 22:00 09/25/17 10:32 Plaquenil - PO 400 mg BID VINCE Administration Insulin Aspart 1 vial 09/21/17 21:34 09/25/17 11:41 Novolog Vial Sliding Scale - SQ 4 unit ACHS VINCE Administration Protocol Insulin Detemir 25 units 09/23/17 12:25 09/25/17 06:44 Levemir Vial SQ 25 units AM VINCE Administration Methotrexate 20 mg 09/21/17 10:00 09/21/17 10:49 Mexate - PO 20 mg Gerardo@1000 VINCE Administration Montelukast Sodium 10 mg 09/18/17 22:00 09/24/17 23:39 Singulair - PO 10 mg HS VINCE Administration Patient's Own 1,000 mg 09/19/17 14:00 Medication (Non- PO Formulary) ( QID VINCE Mesalamine [Pentasa] 500 Mg) Pantoprazole Sodium 40 mg 09/19/17 10:00 09/25/17 10:31 Protonix - PO 40 mg DAILY VINCE Administration Pregabalin 75 mg 09/19/17 14:00 09/25/17 14:16 Lyrica - PO 75 mg TID VINCE Administration Tamoxifen Citrate 20 mg 09/19/17 10:00 09/25/17 10:33 Tamoxifen Citrate PO 20 mg DAILY VINCE Administration Objective: Vital Signs Period Temp Pulse Resp BP Sys/Ronquillo Pulse Ox Last 24 Hr 98.3 F-99.1 F 59-71 18-20 133-162/62-79 95 Physical Exam: General: NAD, A&Ox3 Lungs: CTA bilaterally Heart: RRR, S1S2 Abd: Soft, non-tender, non-distended. Normoactive bowel sounds Ext: B/l lower extremity 1+ pitting edema. Improvement in LLE erythema, remains tender on johnson and foot. Left heel callus with no fluctuance or bogginess Neuro: No focal deficits CBCD WBC 7.5 K/mm3 (4.0-10.0) D 09/25/17 06:20 RBC 3.30 M/mm3 (3.60-5.2) L 09/25/17 06:20 Hgb 8.6 GM/dL (10.7-15.3) L D 09/25/17 06:20 Hct 26.1 % (32.4-45.2) L 09/25/17 06:20 MCV 79.0 fl (80-96) L 09/25/17 06:20 MCHC 32.9 g/dl (32.0-36.0) 09/25/17 06:20 RDW 19.1 % (11.6-15.6) H 09/25/17 06:20 Plt Count 256 K/MM3 (134-434) 09/25/17 06:20 MPV 8.8 fl (7.5-11.1) 09/25/17 06:20 CMP Sodium 143 mmol/L (136-145) 09/25/17 06:20 Potassium 4.4 mmol/L (3.5-5.1) 09/25/17 06:20 Chloride 110 mmol/L (98-107) H 09/25/17 06:20 Carbon Dioxide 23 mmol/L (21-32) 09/25/17 06:20 Anion Gap 10 (8-16) 09/25/17 06:20 BUN 17 mg/dL (7-18) 09/25/17 06:20 Creatinine 2.0 mg/dL (0.55-1.02) H 09/25/17 06:20 Creat Clearance w eGFR 25.77 (>60) 09/25/17 06:20 Random Glucose 186 mg/dL (74-106) H 09/25/17 06:20 Calcium 8.6 mg/dL (8.5-10.1) 09/25/17 06:20 Total Bilirubin 0.4 mg/dL (0.2-1.0) 09/25/17 06:20 AST 22 U/L (15-37) 09/25/17 06:20 ALT 26 U/L (12-78) 09/25/17 06:20 Alkaline Phosphatase 56 U/L (45-117) 09/25/17 06:20 Total Protein 6.6 g/dl (6.4-8.2) 09/25/17 06:20 Albumin 2.3 g/dl (3.4-5.0) L 09/25/17 06:20 Microbiology 09/23/17 21:30 Urine - Urine Clean Catch Urine Culture - Final NO GROWTH OBTAINED 09/22/17 23:10 Blood - Peripheral Venous Blood Culture - Preliminary NO GROWTH OBTAINED AFTER 48 HOURS, INCUBATION TO CONTINUE FOR 3 DAYS. 09/22/17 22:30 Blood - Peripheral Venous Blood Culture - Preliminary NO GROWTH OBTAINED AFTER 48 HOURS, INCUBATION TO CONTINUE FOR 3 DAYS. 09/23/17 21:30 Urine - Urine Clean Catch Legionella Antigen - Final 09/23/17 21:30 Urine - Urine Clean Catch Streptococcus pneumoniae Antigen ( M - Final 09/18/17 12:00 Blood - Peripheral Venous Blood Culture - Final NO GROWTH AFTER 5 DAYS INCUBATION 09/18/17 12:00 Blood - Peripheral Venous Blood Culture - Final NO GROWTH AFTER 5 DAYS INCUBATION Assessment: This is a 57 year old female with PMHx of breast cancer s/p radiation, DM, HTN, hyperlipidemia, asthma, rheumatoid arthritis, who presented to the ED with nausea, vomiting, diarrhea x4 days and left leg erythema. Plan: 1) Anemia - S/p 1u PRBC overnight, Hgb 8.6 today - To receive 2nd unit now - Appreciate hematology consult 2) [place] on CKD - Renal function is stable - Continue Lasix - Appreciate nephrology consult 3) Left leg cellulitis - Ertapenem discontinued - Continue to monitor off abx - Left leg elevation - Appreciate ID consult 4) Nausea/vomiting/diarrhea - Likely gastroenteritis - Resolved 5) Breast cancer - Continue tamoxifen 6) DM - BGM ACHS - ISS ACHS - Continue Levemir 25u sq hs, increase tomorrow if sugars remain elevated 7) Asthma - Continue prn albuterol neb - Continue Symbicort 8) RA - Continue home medications 9) F/E/N: - Diabetic, sodium controlled diet - Monitor electrolytes 10) Prophylaxis: - SCDs bilaterally - Hold chemical DVT prophylaxis 2/2 anemia 11) Dispo: - Requires continued inpatient care CODE STATUS: FULL CODE Visit type - Emergency Visit Emergency Visit: Yes ED Registration Date: 09/18/17 Care time: The patient presented to the Emergency Department on the above date and was hospitalized for further evaluation of their emergent condition. - New Patient This patient is new to me today: No - Critical Care Critical Care patient: No
[2017-09-25] MEDS ORDERED: PT OWN MED DRAWER 7, Y5N ONE ×4 (10:23→21:34)
[2017-09-25] MEDS: ERTAPENEM SODIUM 1 GM in SODIUM CHLORIDE 100 ML IVPB SCH (10:30)
[2017-09-25] MEDS: CARVEDILOL 25 MG TABLET (FP) PO SCH ×2 (10:31→22:01)
[2017-09-25] MEDS: DOCUSATE SODIUM 100 MG CAPSULE (FP) PO SCH ×2 (10:31→11:37)
[2017-09-25] MEDS: PANTOPRAZOLE 40 MG TABLET (FP) PO SCH (10:31)
[2017-09-25] MEDS: ENALAPRIL MALEATE 10 MG TABLET (FP) PO SCH ×2 (10:31→22:07)
[2017-09-25] MEDS: FOLIC ACID 1 MG TABLET (FP) PO SCH (10:31)
[2017-09-25] MEDS: FUROSEMIDE 40 MG TABLET (FP) PO SCH (10:31)
[2017-09-25] MEDS: HYDROXYCHLOROQUINE SO4 200 MG TABLET (FP) PO SCH ×2 (10:32→22:00)
[2017-09-25] MEDS: TAMOXIFEN CITRATE 10 MG TABLET PO SCH (10:33)
[2017-09-25] MEDS: BUDESONIDE/FORMETEROL FUMARATE 160/4.5 mcg INHALER IH SCH ×2 (10:36→22:06)
[2017-09-25] MEDS: BACITRACIN 15 GM TUBE TOPICAL OINTMENT TP SCH (10:37)
[2017-09-25] MEDS ORDERED: FUROSEMIDE 40 MG/4 ML INJECTABLE VIAL IVPUSH ONE (14:00)
--- NOTE | 2017-09-25 15:06 | PN ---
Progress Note, Physician History of Present Illness: stable doing well no new issues still with some pain in the legs swelling improving - Current Medication List Current Medications: Active Medications Acetaminophen (Tylenol Oral Solution -) 650 mg PO Q6H PRN PRN Reason: PAIN LEVEL 1 - 3 Last Admin: 09/23/17 17:13 Dose: 650 mg Atorvastatin Calcium (Lipitor -) 20 mg PO HS [facility] Last Admin: 09/24/17 23:38 Dose: 20 mg Bacitracin (Bacitracin -) 1 applic TP DAILY [facility] Last Admin: 09/25/17 10:37 Dose: 1 applic Budesonide/Formoterol Fumarate (Symbicort 160/4.5mcg -) 1 puff IH BID [facility] Last Admin: 09/25/17 10:36 Dose: 1 puff Carvedilol (Coreg -) 25 mg PO BID [facility] Last Admin: 09/25/17 10:31 Dose: 25 mg Docusate Sodium (Colace -) 100 mg PO DAILY [facility] Last Admin: 09/25/17 11:37 Dose: Not Given Enalapril Maleate (Vasotec -) 20 mg PO BID [facility] Last Admin: 09/25/17 10:31 Dose: 20 mg Folic Acid (Folic Acid -) 1 mg PO DAILY [facility] Last Admin: 09/25/17 10:31 Dose: 1 mg Furosemide (Lasix -) 40 mg PO DAILY [facility] Hydroxychloroquine Sulfate (Plaquenil -) 400 mg PO BID [facility] Last Admin: 09/25/17 10:32 Dose: 400 mg Ertapenem 1 gm/ Sodium (Chloride) 100 mls @ 100 mls/hr IVPB DAILY [facility]; Protocol Last Admin: 09/25/17 10:30 Dose: 100 mls/hr Insulin Aspart (Novolog Vial Sliding Scale -) 1 vial SQ ACHS [facility]; Protocol Last Admin: 09/25/17 11:41 Dose: 4 unit Insulin Detemir (Levemir Vial) 25 units SQ AM [facility] Last Admin: 09/25/17 06:44 Dose: 25 units Methotrexate (Mexate -) 20 mg PO Gerardo@1000 [facility] Last Admin: 09/21/17 10:49 Dose: 20 mg Montelukast Sodium (Singulair -) 10 mg PO HS [facility] Last Admin: 09/24/17 23:39 Dose: 10 mg Non-Formulary Medication (Mesalamine [Pentasa]) 1,000 mg PO QID [facility] Pantoprazole Sodium (Protonix -) 40 mg PO DAILY [facility] Last Admin: 09/25/17 10:31 Dose: 40 mg Pregabalin (Lyrica -) 75 mg PO TID [facility] Last Admin: 09/25/17 14:16 Dose: 75 mg Tamoxifen Citrate (Tamoxifen Citrate) 20 mg PO DAILY [facility] Last Admin: 09/25/17 10:33 Dose: 20 mg - Objective Vital Signs: Vital Signs Temperature 98.4 F 09/25/17 14:00 Pulse Rate 59 L 09/25/17 14:00 Respiratory Rate 20 09/25/17 14:00 Blood Pressure 133/62 09/25/17 14:00 O2 Sat by Pulse Oximetry (%) 95 09/25/17 09:00 Constitutional: Yes: No Distress, Calm Cardiovascular: Yes: S1, S2 Respiratory: Yes: Regular, CTA Bilaterally Gastrointestinal: Yes: Normal Bowel Sounds, Soft Musculoskeletal: Yes: WNL Extremities: Yes: Other Edema: LLE: 1+ Neurological: Yes: Alert, Oriented Psychiatric: Yes: Alert, Oriented Labs: CBC, BMP 09/25/17 06:20 09/25/17 06:20 Assessment/Plan 57 year old female with PMHx of breast cancer s/p radiation, DM, HTN, hyperlipidemia, asthma, rheumatoid arthritis, who presented to the ED with nausea, vomiting, diarrhea x4 days and left leg erythema. Nausea/vomiting/diarrhea [place] Left leg cellulitis Chronic anemia edema of the left leg plan will stop abx elevation of the leg rest continue current mgmt patient improving
--- NOTE | 2017-09-25 16:48 | PN ---
Progress Note (short form) - Note Progress Note: Renal follow up for [place] on CKD Pt seen and examined at the bedside feels better overall has ARRIETA, no chest pain, no cough has mild edema in LE Vital Signs Temperature 98.4 F 09/25/17 14:00 Pulse Rate 59 L 09/25/17 14:00 Respiratory Rate 20 09/25/17 14:00 Blood Pressure 133/62 09/25/17 14:00 O2 Sat by Pulse Oximetry (%) 95 09/25/17 09:00 Intake & Output 09/22/17 09/23/17 09/24/17 09/25/17 23:59 23:59 23:59 23:59 Intake Total 1320 1420 1580 Output Total 400 Balance 1320 1020 1580 Weight 133.356 kg NAD awake and alert CTA + edema in LE CBC, BMP 09/25/17 06:20 09/25/17 06:20 Current Medications Acetaminophen (Tylenol Oral Solution -) 650 mg PO Q6H PRN PRN Reason: PAIN LEVEL 1 - 3 Last Admin: 09/23/17 17:13 Dose: 650 mg Atorvastatin Calcium (Lipitor -) 20 mg PO HS REPLACED BY [facility] Last Admin: 09/24/17 23:38 Dose: 20 mg Bacitracin (Bacitracin -) 1 applic TP DAILY REPLACED BY [facility] Last Admin: 09/25/17 10:37 Dose: 1 applic Budesonide/Formoterol Fumarate (Symbicort 160/4.5mcg -) 1 puff IH BID REPLACED BY [facility] Last Admin: 09/25/17 10:36 Dose: 1 puff Carvedilol (Coreg -) 25 mg PO BID REPLACED BY [facility] Last Admin: 09/25/17 10:31 Dose: 25 mg Docusate Sodium (Colace -) 100 mg PO DAILY REPLACED BY [facility] Last Admin: 09/25/17 11:37 Dose: Not Given Enalapril Maleate (Vasotec -) 20 mg PO BID REPLACED BY [facility] Last Admin: 09/25/17 10:31 Dose: 20 mg Folic Acid (Folic Acid -) 1 mg PO DAILY REPLACED BY [facility] Last Admin: 09/25/17 10:31 Dose: 1 mg Furosemide (Lasix -) 40 mg PO DAILY REPLACED BY [facility] Hydroxychloroquine Sulfate (Plaquenil -) 400 mg PO BID REPLACED BY [facility] Last Admin: 09/25/17 10:32 Dose: 400 mg Insulin Aspart (Novolog Vial Sliding Scale -) 1 vial SQ ACHS REPLACED BY [facility]; Protocol Last Admin: 09/25/17 11:41 Dose: 4 unit Insulin Detemir (Levemir Vial) 25 units SQ AM REPLACED BY [facility] Last Admin: 09/25/17 06:44 Dose: 25 units Methotrexate (Mexate -) 20 mg PO Gerardo@1000 REPLACED BY [facility] Last Admin: 09/21/17 10:49 Dose: 20 mg Montelukast Sodium (Singulair -) 10 mg PO HS REPLACED BY [facility] Last Admin: 09/24/17 23:39 Dose: 10 mg Patient's Own Medication (Non- Formulary) ( Mesalamine [Pentasa] 500 Mg) 1,000 mg PO QID REPLACED BY [facility] Pantoprazole Sodium (Protonix -) 40 mg PO DAILY REPLACED BY [facility] Last Admin: 09/25/17 10:31 Dose: 40 mg Pregabalin (Lyrica -) 75 mg PO TID REPLACED BY [facility] Last Admin: 09/25/17 14:16 Dose: 75 mg Tamoxifen Citrate (Tamoxifen Citrate) 20 mg PO DAILY REPLACED BY [facility] Last Admin: 09/25/17 10:33 Dose: 20 mg 57 year old woman with PMhx of CKD Stage 3 (baseline Cr ~1.7), IDDM, Hypertension, Breast Ca on Tamoxifin, RA who presented with LE redness and pain and N/V and found to have [place] on CKD with Cr of 2.3. #[place] on CKD #CKD Stage 3 #Proteinuria #LE cellulitis #Hypertension #LE edema Renal function stable CXR shows mild congestion will give Lasix 40mg IV x 1 continue oral daily lasix continue ACEi trend renal function, electrolytes daily Riley Rashid DO
[2017-09-25] MEDS: PATIENT'S OWN MEDICATION (NON-FORMULARY) (Mesalamine [Pentasa] 500 MG) PO SCH ×3 (18:00→22:02)
[2017-09-25] MEDS: MONTELUKAST NA 10 MG TABLET PO SCH (22:00)
[2017-09-25] MEDS: ATORVASTATIN CA 20 MG TABLET (FP) PO SCH (22:00)
[2017-09-26] MEDS: PREGABALIN 75 MG CAPSULE PO SCH (05:52)
[2017-09-26] MEDS: INSULIN SLIDING SCALE (NOVOLOG) 1 VIAL SQ SCH ×2 (06:34→12:08)
[2017-09-26] MEDS: INSULIN (LEVEMIR) 100 UNITS/ML UNITS SQ SCH (06:35)
[2017-09-26 07:27] LABS: BASO % 0.9 % (0-2.0); EOS % 4.5 % (0-4.5); HEMATOCRIT 27.8 % (32.4-45.2); HEMOGLOBIN 9.4 GM/dL (10.7-15.3); LYMPH % 12.4 % (8-40); MCH 27.5 pg (25.7-33.7); MCHC 33.8 g/dl (32.0-36.0); MEAN CELL VOLUME 81.5 fl (80-96); MEAN PLT VOLUME 8.6 fl (7.5-11.1); MONO % 3.9 % (3.8-10.2); NEUT % 78.3 % (42.8-82.8); PLATELET COUNT 239 K/MM3 (134-434); RBC 3.42 M/mm3 (3.60-5.2); RDW 19.4 % (11.6-15.6); WHITE BLOOD COUNT 8.9 K/mm3 (4.0-10.0)
[2017-09-26 08:09] LABS: ANION GAP 10 (8-16); BLOOD UREA NITROGEN 17 mg/dL (7-18); CALCIUM 8.9 mg/dL (8.5-10.1); CHLORIDE 109 mmol/L (98-107); CO2 25 mmol/L (21-32); SODIUM 144 mmol/L (136-145)
[2017-09-26 08:12] LABS: GLUCOSE,RANDOM 166 mg/dL (74-106); MAGNESIUM 2.1 mg/dL (1.8-2.4); PHOSPHOROUS 4.2 mg/dL (2.5-4.9)
[2017-09-26] MEDS ORDERED: FUROSEMIDE 40 MG TABLET (FP) PO SCH (10:00)
[2017-09-26 10:14] VITALS: BP 148/57; PULSE 64; TEMP 98.2
[2017-09-26] MEDS ORDERED: PT OWN MED DRAWER 7, Y5N ONE ×3 (10:19→10:38)
[2017-09-26] MEDS: PATIENT'S OWN MEDICATION (NON-FORMULARY) (Mesalamine [Pentasa] 500 MG) PO SCH ×2 (10:20→10:25)
[2017-09-26] MEDS: BACITRACIN 15 GM TUBE TOPICAL OINTMENT TP SCH (10:22)
[2017-09-26] MEDS: FOLIC ACID 1 MG TABLET (FP) PO SCH (10:22)
[2017-09-26] MEDS: CARVEDILOL 25 MG TABLET (FP) PO SCH (10:22)
[2017-09-26] MEDS: DOCUSATE SODIUM 100 MG CAPSULE (FP) PO SCH (10:22)
[2017-09-26] MEDS: PANTOPRAZOLE 40 MG TABLET (FP) PO SCH (10:23)
[2017-09-26] MEDS: BUDESONIDE/FORMETEROL FUMARATE 160/4.5 mcg INHALER IH SCH (10:23)
[2017-09-26] MEDS: ENALAPRIL MALEATE 10 MG TABLET (FP) PO SCH (10:24)
[2017-09-26] MEDS: TAMOXIFEN CITRATE 10 MG TABLET PO SCH (10:36)
[2017-09-26] MEDS: HYDROXYCHLOROQUINE SO4 200 MG TABLET (FP) PO SCH (10:36)
--- NOTE | 2017-09-26 10:53 | DS ---
Physical Examination Vital Signs: Vital Signs Temperature 98.2 F 09/26/17 10:00 Pulse Rate 64 09/26/17 10:00 Respiratory Rate 20 09/26/17 10:00 Blood Pressure 148/57 09/26/17 10:00 O2 Sat by Pulse Oximetry (%) 95 09/25/17 21:00 Labs: CBC, BMP 09/26/17 06:10 09/26/17 06:10 Discharge Summary Reason For Visit: CELLULITIS,UMBILICAL HERNIA,ACUTE ON CHRONIC RENAL Current Active Problems Acute on chronic renal insufficiency (Acute) Cellulitis (Acute) Diabetes (Acute) Nausea & vomiting (Acute) Umbilical hernia (Acute) Condition: Improved - Instructions Referrals: Zachary Rogel MD [Primary Care Provider] - (Please follow-up with your primary care provider within 3-5 days) Disposition: VNS/HOME HEALTH CARE - Home Medications Comprehensive Discharge Medication List: Ambulatory Orders Carvedilol 25 mg PO BID 10/22/14 Montelukast Na [Singulair -] 10 mg PO HS 10/22/14 Pregabalin [Lyrica -] 75 mg PO TID 10/22/14 Cholecalciferol (Vitamin D3) [Vitamin D3] 50,000 unit PO WEEKLY 01/26/16 Tamoxifen Citrate 20 mg PO DAILY 05/24/16 Albuterol 0.083% Nebulizer Page [Ventolin 0.083% Nebulizer Soln -] 1 amp NEB DAILY 09/18/17 Atorvastatin Ca [Lipitor] 20 mg PO HS 09/18/17 Budesonide/Formeterol Fumarate [SYMBICORT 160/4.5mcg -] 1 inh PO BID 09/18/17 Enalapril Maleate [Vasotec] 20 mg PO BID 09/18/17 Hydroxychloroquine Sulfate [Plaquenil] 400 mg PO BID 09/18/17 Mesalamine [Pentasa] 1,000 mg PO QID 09/18/17 Methotrexate Sodium [Methotrexate] 20 mg PO WEEKLY 09/18/17 Pantoprazole Sodium [Protonix] 40 mg PO DAILY 09/18/17 Bacitracin - [Bacitracin Topical Ointment -] 1 applic TP DAILY tube 09/26/17 Docusate Sodium [Colace -] 100 mg PO DAILY capsule 09/26/17 Folic Acid - 1 mg PO DAILY #30 tablet 09/26/17 Furosemide [Lasix -] 40 mg PO BID #60 tablet 09/26/17 Insulin (Levemir) [Levemir Vial] 25 units SQ AM #10 ml 09/26/17 - Discharge Referral Referred to [facility] No Physician Referral: Ab Gonsales MD ([facility])
--- NOTE | 2017-09-26 14:32 | PN ---
Progress Note, Physician History of Present Illness: patient stable doing well mild pain in the leg erythema resolved - Objective Vital Signs: Vital Signs Temperature 98.2 F 09/26/17 10:00 Pulse Rate 64 09/26/17 10:00 Respiratory Rate 20 09/26/17 10:00 Blood Pressure 148/57 09/26/17 10:00 O2 Sat by Pulse Oximetry (%) 94 L 09/26/17 09:00 Constitutional: Yes: No Distress, Calm Cardiovascular: Yes: Regular Rate and Rhythm Respiratory: Yes: Regular, CTA Bilaterally Gastrointestinal: Yes: Normal Bowel Sounds, Soft Musculoskeletal: Yes: WNL Extremities: Yes: WNL Neurological: Yes: Alert, Oriented Psychiatric: Yes: Alert, Oriented Labs: CBC, BMP 09/26/17 06:10 09/26/17 06:10 Assessment/Plan 57 year old female with PMHx of breast cancer s/p radiation, DM, HTN, hyperlipidemia, asthma, rheumatoid arthritis, who presented to the ED with nausea, vomiting, diarrhea x4 days and left leg erythema. Nausea/vomiting/diarrhea [place] Left leg cellulitis Chronic anemia edema of the left leg plan stable off of abx elevation of the leg rest continue current mgmt patient improving
== END 2017-09-26 14:06 | disposition home health service (06) | DRG 683 ==
LOC: JER 10:25 → JERBED 17:40 → J8W 23:29
PROVIDERS: ADMIT Internal Medicine; ATTEND Registered Nurse
PROC: 30233N1 Transfusion of Nonautologous Red Blood Cells into Peripheral Vein, Percutaneous Approach (ICD-10-PCS; principal; 2017-09-20)
DX: N17.9 Acute kidney failure, unspecified (principal); L03.116 Cellulitis of left lower limb; Z68.42 Body mass index [BMI] 45.0-49.9, adult; B49 Unspecified mycosis; K52.89 Other specified noninfective gastroenteritis and colitis; R11.2 Nausea with vomiting, unspecified; R19.7 Diarrhea, unspecified; D64.9 Anemia, unspecified; E66.01 Morbid (severe) obesity due to excess calories; J45.909 Unspecified asthma, uncomplicated; E11.65 Type 2 diabetes mellitus with hyperglycemia; K42.9 Umbilical hernia without obstruction or gangrene; M06.9 Rheumatoid arthritis, unspecified; M79.7 Fibromyalgia; I12.9 Hypertensive chronic kidney disease with stage 1 through stage 4 chronic kidney disease, or unspecified chronic kidney disease; E11.22 Type 2 diabetes mellitus with diabetic chronic kidney disease; N18.3 Chronic kidney disease, stage 3 (moderate); Z85.3 Personal history of malignant neoplasm of breast
CPT/HCPCS: 36415; 36430; 71045-TC-FY; 73700-TC-RT; 74176-TC; 80048; 80053; 81003; 81015; 82009; 82436; 82570; 82728; 82803; 82962; 83036; 83540; 83550; 83605; 83615; 83690; 83735; 84100; 84133; 84300; 84443; 84466; 84540; 85025; 85027; 85651; 86140; 86850; 86900; 86901; 86922; 87040; 87086; 87899; 93005; 93010; 93970-TC; 93971-TC; 94640; 97116-GP; 97161-GP; 99284-25; J1756; J7030; J8610; P9038; P9058

== ENCOUNTER 2018-11-26 00:05 | Inpatient (IN) | payer BC, OTHER ==
[2018-11-26 00:43] VITALS: BMI 40.3
--- NOTE | 2018-11-26 00:46 | PDOC ---
History of Present Illness - General Chief Complaint: Laceration Stated Complaint: RAZOR CUT PUBIC AREA Time Seen by Provider: 11/26/18 00:45 Past History - Past Medical History Allergies/Adverse Reactions: Allergies Allergy/AdvReac Type Severity Reaction Status Date / Time shellfish derived Allergy Swelling Verified 11/26/18 00:39 Home Medications: Ambulatory Orders Carvedilol 25 mg PO BID 10/22/14 Montelukast Na [Singulair -] 10 mg PO HS 10/22/14 Pregabalin [Lyrica -] 75 mg PO TID 10/22/14 Cholecalciferol (Vitamin D3) [Vitamin D3] 50,000 unit PO WEEKLY 01/26/16 Tamoxifen Citrate 20 mg PO DAILY 05/24/16 Albuterol 0.083% Nebulizer Page [Ventolin 0.083% Nebulizer Soln -] 1 amp NEB DAILY 09/18/17 Atorvastatin Ca [Lipitor] 20 mg PO HS 09/18/17 Budesonide/Formeterol Fumarate [SYMBICORT 160/4.5mcg -] 1 inh PO BID 09/18/17 Enalapril Maleate [Vasotec] 20 mg PO BID 09/18/17 Hydroxychloroquine Sulfate [Plaquenil] 400 mg PO BID 09/18/17 Mesalamine [Pentasa] 1,000 mg PO QID 09/18/17 Methotrexate Sodium [Methotrexate] 20 mg PO WEEKLY 09/18/17 Pantoprazole Sodium [Protonix] 40 mg PO DAILY 09/18/17 Folic Acid - 1 mg PO DAILY #30 tablet 09/26/17 Furosemide [Lasix -] 40 mg PO BID #60 tablet 09/26/17 Insulin Glargine,Hum.rec.anlog [Lantus] 25 unit SQ BID 11/26/18 Insulin Regular, Human [Humulin R U-500 Kwikpen] 35 unit SQ BID 11/26/18 Anemia: Yes Asthma: Yes Cancer: Yes (BREAST) COPD: No Diabetes: Yes HTN: Yes Hypercholesterolemia: Yes - Surgical History Abdominal Surgery: Yes (cholycystectomy) Appendectomy: Yes Cholecystectomy: Yes - Suicide/Smoking/Psychosocial Hx Smoking History: Unknown if ever smoked Have you smoked in the past 12 months: No Hx Alcohol Use: No Drug/Substance Use Hx: No Substance Use Type: None *Physical Exam - Vital Signs Last Vital Signs Temp Pulse Resp BP Pulse Ox 98.3 F 75 18 141/50 L 97 11/26/18 00:26 11/26/18 00:26 11/26/18 00:26 11/26/18 00:26 11/26/18 00:26 ED Treatment Course - LABORATORY CBC & Chemistry Diagram: 11/26/18 01:34 11/26/18 01:34 Medical Decision Making - Medical Decision Making 58yo F with PMH of HTN, HLD, DM, anemia, RA, fibromyalgia, Crohn's, CKD Stage 3 , Breast Ca s/p chemoradiation presenting with laceration to her pubic area sustained while shaving around 9pm. Patient reports that she was using a new electric razor to shave off her pubic hair when she inadvertently cut herself in several area, causing her to bleed "a lot." She endorses weakness and lightheadedness. Patient called an outside hospital regarding this and was instructed to seek medical attention. Reporting dysuria that she had prior to this shaving episode. No fevers, chills, chest pain, or shortness of breath. PCP: Dr. Rogel sole rougher: Dr. Gaines (spelling?) ROS: Constitutional: no fever, no chills HEENT: no throat pain, no dysphagia Cardiovascular: no chest pain, no palpitations Respiratory: no cough, no shortness of breath Gastrointestinal: no abdominal pain, no nausea Genitourinary: +dysuria, no hematuria Musculoskeletal: no myalgia, no arthralgia Skin: no rash, no itching Neurologic: +lightheadedness, +weakness PE: General: Awake, alert, and fully oriented, in no acute distress Head: No signs of trauma Eyes: EOMI, sclera anicteric ENT: Dry mucus membranes Neck: Normal ROM, supple Lungs: Lungs clear, Normal breath sounds Cardio: Regular rhythm, S1 and S2 present Abdomen: Soft, nontender. No guarding, no rebound, no masses Extremities: Normal range of motion, Distal pulses present SKIN: Warm, Dry, normal turgor Neurologic: Cranial nerves II through XII grossly intact. Normal speech Genitalia: Superfical abrasions present along outer and inner labia, mostly hemostatic with minor spot of blood oozing on inner R. labia ED Courses/MDM: CBC, CMP as patient reports lightheadedness and weakness Abrasions do not require sutures 11/26/18 00:46 CBC WBC 7.4 K/mm3 (4.0-10.0) 11/26/18 01:34 RBC 3.32 M/mm3 (3.60-5.2) L 11/26/18 01:34 Hgb 9.1 GM/dL (10.7-15.3) L 11/26/18 01:34 Hct 27.9 % (32.4-45.2) L 11/26/18 01:34 MCV 83.8 fl (80-96) 11/26/18 01:34 MCH 27.3 pg (25.7-33.7) 11/26/18 01:34 MCHC 32.5 g/dl (32.0-36.0) 11/26/18 01:34 RDW 13.9 % (11.6-15.6) D 11/26/18 01:34 Plt Count 163 K/MM3 (134-434) D 11/26/18 01:34 MPV 8.9 fl (7.5-11.1) 11/26/18 01:34 Absolute Neuts (auto) 5.2 K/mm3 (1.5-8.0) 11/26/18 01:34 Neutrophils % 69.2 % (42.8-82.8) 11/26/18 01:34 Lymphocytes % 19.4 % (8-40) D 11/26/18 01:34 Monocytes % 8.3 % (3.8-10.2) D 11/26/18 01:34 Eosinophils % 2.3 % (0-4.5) 11/26/18 01:34 Basophils % 0.8 % (0-2.0) 11/26/18 01:34 Nucleated RBC % 0 % (0-0) 11/26/18 01:34 No leukocytosis Hgb at baseline CMP Sodium 140 mmol/L (136-145) 11/26/18 01:34 Potassium 3.8 mmol/L (3.5-5.1) 11/26/18 01:34 Chloride 106 mmol/L (98-107) 11/26/18 01:34 Carbon Dioxide 25 mmol/L (21-32) 11/26/18 01:34 Anion Gap 9 MMOL/L (8-16) 11/26/18 01:34 BUN 55.3 mg/dL (7-18) H 11/26/18 01:34 Creatinine 4.3 mg/dL (0.55-1.3) H 11/26/18 01:34 Est GFR (CKD-EPI)AfAm 12.42 11/26/18 01:34 Est GFR (CKD-EPI)NonAf 10.71 11/26/18 01:34 Random Glucose 502 mg/dL (74-106) H* 11/26/18 01:34 Calcium 8.6 mg/dL (8.5-10.1) 11/26/18 01:34 Total Bilirubin 0.2 mg/dL (0.2-1) 11/26/18 01:34 AST 9 U/L (15-37) L 11/26/18 01:34 ALT 16 U/L (13-61) 11/26/18 01:34 Alkaline Phosphatase 82 U/L (45-117) 11/26/18 01:34 Total Protein 7.0 g/dl (6.4-8.2) 11/26/18 01:34 Albumin 2.6 g/dl (3.4-5.0) L 11/26/18 01:34 Electrolytes unremarkable Cr elevated above patient's baseline of 2 Glucose elevated, patient states she took her lantus before 9pm Fluids ordered UA with infection, 2+ LE, WBC in 332, Bacteria 460.5 Rocephin ordered Plan for admission for [place], UTI, and hyperglycemia Pending EKG and CXR 11/26/18 03:03 Dr. Urban discussed case with inpatient team who accepted for admission under Dr. Tapia 11/26/18 03:22 CXR with enlarged cardiac silhouhette but otherwise without acute pathology, my impression EKG: rate 74, QTc 497, sinus with 1st degree AV block 11/26/18 05:30 *DC/Admit/Observation/Transfer Diagnosis at time of Disposition: [place] (acute kidney injury), Hyperglycemia UTI (urinary tract infection) Qualifiers: Urinary tract infection type: site unspecified Hematuria presence: without hematuria Qualified Code(s): N39.0 - Urinary tract infection, site not specified - Discharge Dispostion Condition at time of disposition: Guarded Decision to Admit order: Yes - Referrals - Patient Instructions - Post Discharge Activity
[2018-11-26] MEDS ORDERED: ACETAMINOPHEN 325 MG TABLET (FP) PO ONE (01:09)
[2018-11-26] MEDS ORDERED: ACETAMINOPHEN 325 MG TABLET (FP) ONE ×2 (01:25→06:55)
[2018-11-26 01:42] LABS: BASO % 0.8 % (0-2.0); EOS % 2.3 % (0-4.5); HEMATOCRIT 27.9 % (32.4-45.2); HEMOGLOBIN 9.1 GM/dL (10.7-15.3); LYMPH % 19.4 % (8-40); MCH 27.3 pg (25.7-33.7); MCHC 32.5 g/dl (32.0-36.0); MEAN CELL VOLUME 83.8 fl (80-96); MEAN PLT VOLUME 8.9 fl (7.5-11.1); MONO % 8.3 % (3.8-10.2); NEUT % 69.2 % (42.8-82.8); PLATELET COUNT 163 K/MM3 (134-434); RBC 3.32 M/mm3 (3.60-5.2); RDW 13.9 % (11.6-15.6); WHITE BLOOD COUNT 7.4 K/mm3 (4.0-10.0)
--- NOTE | 2018-11-26 02:07 | PDOC ---
Attending Attestation - Resident Resident Name: Vivi Montes - ED Attending Attestation I have performed the following: I have examined & evaluated the patient, The case was reviewed & discussed with the resident, I agree w/resident's findings & plan - HPI HPI: 11/26/18 02:03 58-year-old female with bleeding from the external vaginal area after attempting to shave with a battery-operated razor. - Physicial Exam PE: 11/26/18 02:03 agree with resident exam - Medical Decision Making 11/26/18 02:05 58-year-old female with bleeding from the vaginal area Patient has no active bleeding on exam at 1:30 AM Patient advised to apply some pressure to the area using either gauze or feminine pads and underwear Will check CBC due to history of anemia likely d/c home
[2018-11-26 02:19] LABS: ALBUMIN 2.6 g/dl (3.4-5.0); BILIRUBIN,TOTAL 0.2 mg/dL (0.2-1); BLOOD UREA NITROGEN 55.3 mg/dL (7-18); CALCIUM 8.6 mg/dL (8.5-10.1); CREATININE 4.3 mg/dL (0.55-1.3); POTASSIUM 3.8 mmol/L (3.5-5.1)
[2018-11-26] MEDS ORDERED: SODIUM CHLORIDE 2,000 ML IV STA (02:29)
[2018-11-26 02:39] LABS: EPI CELLS 6.8 /HPF (0-5/HPF); HYALINE CASTS 13 /lpf (0-8); URINE APPEARANCE TURBID; URINE BACTERIA 460.5 /hpf (NEGATIVE); URINE BILIRUBIN NEGATIVE (NEGATIVE); URINE COLOR YELLOW; URINE GLUCOSE (UA) 3+ (NEGATIVE); URINE KETONE NEGATIVE (NEGATIVE); URINE LEUK ESTERASE 2+ (NEGATIVE); URINE NITRITE NEGATIVE (NEGATIVE); URINE PROTEIN 2+ (NEGATIVE); URINE RBC 5 /hpf (0-4); URINE UROBILINOGEN 0.2 mg/dL (0.2-1.0); URINE WBC 332 /hpf (0-5)
[2018-11-26] MEDS ORDERED: CEFTRIAXONE 1,000 MG in DEXTROSE 5%-WATER - 50 ML IVPB ONE (02:58)
[2018-11-26] MEDS ORDERED: CEFTRIAXONE 1 GM/50 ML BAG ONE (03:01)
[2018-11-26] MEDS ORDERED: ACETAMINOPHEN 325 MG TABLET (FP) PO PRN (04:19)
--- NOTE | 2018-11-26 04:21 | PN ---
Teaching Attending Note ATTENDING PHYSICIAN STATEMENT I saw and evaluated the patient. I reviewed the resident's note and discussed the case with the resident. I agree with the resident's findings and plan as documented. SUBJECTIVE: Seen and examined; please refer to resident note for further historical information. Briefly, this is a 58 y/o female presenting to the ER with a CC of cutting her labia when shaving; she is known to have CKD with unknown baseline Cr (2's 2018 but that is last in system; she estimates 3s for the past 12+ months). Hyperglycemic without DKA to the 500s and with dysuria and +UA ( no prior cx results in system). VS, labs, imaging reviewed NAD, AAO, resting in bed RRR s1/2 Lungs CTAB, w/ sym exp +Flank pain to fist percussion NT ND +BS CN2-12 wnl, no fnd Normal mood, appropriate behavior EKG reviewed CXR reviewed Prior micro reviewed ASSESSMENT AND PLAN: Patient presents for superficial labial laceration; found to have UTI with [place], + flank pain. CT pending to r/o any stones # Acute pyelo, r/o stone # [place] on CKD # Obesity # Labial laceration # Uncontrolled DM with hyperglycemia # Hx RA on DMARDS
[2018-11-26] MEDS ORDERED: INSULIN (NOVOLOG) ASPART 100 UNITS/ML 10ML VIAL SQ ONE (04:24)
[2018-11-26] MEDS ORDERED: LACTATED RINGERS SOLUTION 1,000 ML IV SCH (04:30)
[2018-11-26] MEDS: SODIUM CHLORIDE 1,000 ML IV SCH ×2 (04:42→18:30)
--- NOTE | 2018-11-26 04:52 | HP ---
CHIEF COMPLAINT: cuts PCP: Quincy Castillo HISTORY OF PRESENT ILLNESS: Patient is a 58 y/o female with a history of breast cancer s/p radiation, DM, HTN, CKD, asthma, rheumatoid arthritis, and chronic low back pain who presents after cutting her labia while shaving. patient grooms herself weekly and had increased pain after shaving so she presented to the Emergency Room. While here she was found to have worsening of her kidney function. Patient follows with a pr specialist at [facility] and she believes her baseline creatinine is ~3.8. Per patient her CKD is secondary to her uncontrolled diabetes. patient notes for the last few days she has also had burning with urination. She notes flank pain but also had chronic back pain. Patient reports she takes her medications. Denies fevers, chills, nausea, vomiting. ER course was notable for: (1) Ceftriaxone (2) (3) Recent Travel: PAST MEDICAL HISTORY: breast cancer s/p radiation, DM, HTN, CKD, asthma, rheumatoid arthritis, and chornic low back pain Social History: Smoking: denies Alcohol: denies Drugs: denies Family History: mother and father: HTN and DM Allergies shellfish derived Allergy (Verified 11/26/18 00:39) Swelling HOME MEDICATIONS: Home Medications Medication Instructions Recorded Carvedilol 25 mg PO BID 10/22/14 Montelukast Na [Singulair -] 10 mg PO HS 10/22/14 Pregabalin [Lyrica -] 75 mg PO TID 10/22/14 Cholecalciferol (Vitamin D3) 50,000 unit PO WEEKLY 01/26/16 [Vitamin D3] Tamoxifen Citrate 20 mg PO DAILY 05/24/16 Albuterol 0.083% Nebulizer Page 1 amp NEB DAILY 09/18/17 [Ventolin 0.083% Nebulizer Soln -] Atorvastatin Ca [Lipitor] 20 mg PO HS 09/18/17 Budesonide/Formeterol Fumarate 1 inh PO BID 09/18/17 [SYMBICORT 160/4.5mcg -] Enalapril Maleate [Vasotec] 20 mg PO BID 09/18/17 Hydroxychloroquine Sulfate 400 mg PO BID 09/18/17 [Plaquenil] Mesalamine [Pentasa] 1,000 mg PO QID 09/18/17 Methotrexate Sodium [Methotrexate] 20 mg PO WEEKLY 09/18/17 Pantoprazole Sodium [Protonix] 40 mg PO DAILY 09/18/17 Folic Acid - 1 mg PO DAILY #30 tablet 09/26/17 Furosemide [Lasix -] 40 mg PO BID #60 tablet 09/26/17 Insulin Glargine,Hum.rec.anlog 25 unit SQ BID 11/26/18 [Lantus] Insulin Regular, Human [Humulin R 35 unit SQ BID 11/26/18 U-500 Kwikpen] REVIEW OF SYSTEMS CONSTITUTIONAL: Absent: fever, chills, diaphoresis, generalized weakness, malaise, loss of appetite, weight change HEENT: Absent: rhinorrhea, nasal congestion, throat pain, throat swelling, difficulty swallowing, mouth swelling, ear pain, eye pain, visual changes CARDIOVASCULAR: Absent: chest pain, syncope, palpitations, irregular heart rate, lightheadedness , peripheral edema RESPIRATORY: Absent: cough, shortness of breath, dyspnea with exertion, orthopnea, wheezing, stridor, hemoptysis GASTROINTESTINAL: Absent: abdominal pain, abdominal distension, nausea, vomiting, diarrhea, constipation, melena, hematochezia GENITOURINARY: dysuria Absent: frequency, urgency, hesitancy, hematuria, flank pain, genital pain MUSCULOSKELETAL: back pain, Absent: myalgia, arthralgia, joint swelling, neck pain SKIN: Absent: rash, itching, pallor HEMATOLOGIC/IMMUNOLOGIC: Absent: easy bleeding, easy bruising, lymphadenopathy, frequent infections ENDOCRINE: Absent: unexplained weight gain, unexplained weight loss, heat intolerance, cold intolerance NEUROLOGIC: Absent: headache, focal weakness or paresthesias, dizziness, unsteady gait, seizure, mental status changes, bladder or bowel incontinence PSYCHIATRIC: Absent: anxiety, depression, suicidal or homicidal ideation, hallucinations. PHYSICAL EXAMINATION Vital Signs - 24 hr 11/26/18 11/26/18 00:26 03:38 Temperature 98.3 F Pulse Rate 75 Respiratory 18 Rate Blood Pressure 141/50 L O2 Sat by Pulse 97 97 Oximetry (%) GENERAL: Awake, alert, and fully oriented, in no acute distress. HEAD: Normal with no signs of trauma. EYES: Pupils equal, round and reactive to light, extraocular movements intact, EARS, NOSE, THROAT: Moist mucous membranes. LUNGS: Breath sounds equal, clear to auscultation bilaterally. No wheezes, and no crackles. No accessory muscle use. HEART: Regular rate and rhythm, normal S1 and S2 without murmur, rub or gallop. ABDOMEN: Soft, nontender, not distended, large pannus, chronic skin change under but not signs of infection. : small abrasions within labia, no blood or pus noted MUSCULOSKELETAL: R sided CVA tenderness, low back pain to palpation LOWER EXTREMITIES: No peripheral edema. PSYCHIATRIC: Cooperative. Good eye contact. Appropriate mood and affect. SKIN: Warm, dry, normal turgor, no rashes or lesions noted, normal capillary refill. CBC,CMP WBC 7.4 K/mm3 (4.0-10.0) 11/26/18 01:34 RBC 3.32 M/mm3 (3.60-5.2) L 11/26/18 01:34 Hgb 9.1 GM/dL (10.7-15.3) L 11/26/18 01:34 Hct 27.9 % (32.4-45.2) L 11/26/18 01:34 MCV 83.8 fl (80-96) 11/26/18 01:34 MCH 27.3 pg (25.7-33.7) 11/26/18 01:34 MCHC 32.5 g/dl (32.0-36.0) 11/26/18 01:34 RDW 13.9 % (11.6-15.6) D 11/26/18 01:34 Plt Count 163 K/MM3 (134-434) D 11/26/18 01:34 MPV 8.9 fl (7.5-11.1) 11/26/18 01:34 Absolute Neuts (auto) 5.2 K/mm3 (1.5-8.0) 11/26/18 01:34 Neutrophils % 69.2 % (42.8-82.8) 11/26/18 01:34 Lymphocytes % 19.4 % (8-40) D 11/26/18 01:34 Monocytes % 8.3 % (3.8-10.2) D 11/26/18 01:34 Eosinophils % 2.3 % (0-4.5) 11/26/18 01:34 Basophils % 0.8 % (0-2.0) 11/26/18 01:34 Nucleated RBC % 0 % (0-0) 11/26/18 01:34 Sodium 140 mmol/L (136-145) 11/26/18 01:34 Potassium 3.8 mmol/L (3.5-5.1) 11/26/18 01:34 Chloride 106 mmol/L (98-107) 11/26/18 01:34 Carbon Dioxide 25 mmol/L (21-32) 11/26/18 01:34 Anion Gap 9 MMOL/L (8-16) 11/26/18 01:34 BUN 55.3 mg/dL (7-18) H 11/26/18 01:34 Creatinine 4.3 mg/dL (0.55-1.3) H 11/26/18 01:34 Est GFR (CKD-EPI)AfAm 12.42 11/26/18 01:34 Est GFR (CKD-EPI)NonAf 10.71 11/26/18 01:34 Random Glucose 502 mg/dL (74-106) H* 11/26/18 01:34 Calcium 8.6 mg/dL (8.5-10.1) 11/26/18 01:34 Total Bilirubin 0.2 mg/dL (0.2-1) 11/26/18 01:34 AST 9 U/L (15-37) L 11/26/18 01:34 ALT 16 U/L (13-61) 11/26/18 01:34 Alkaline Phosphatase 82 U/L (45-117) 11/26/18 01:34 Total Protein 7.0 g/dl (6.4-8.2) 11/26/18 01:34 Albumin 2.6 g/dl (3.4-5.0) L 11/26/18 01:34 ASSESSMENT/PLAN: Patient is a 58 y/o female with a history of breast cancer s/p radiation, DM, HTN, CKD, asthma, rheumatoid arthritis, and chronic low back pain who is admitted for [place] vs worsening CKD 2/2 to pyelnoephritis. #[place] vs worsening CKD, 2/2 to pyelonephritis - Call pr specialist for baseline creatinine - Ceftriaxone 1 gm in ED, would continue 2 gm - UA: indicative of UTI - Abdominal/Pelvis CT to r/o infected stone, would recommend changing abx if stone found - NS @ 83 - Cr 4.3 - f/u urine cx #Uncontrolled DM - 10 units novolog given in ED - likely uncontroleld at baseline, no labs indicative of DKA A - will check BGM, SS #Rheumatoid arthritis/ chronic low back pain - methotrexate weekly, discuss with patient what day she takes - tylenol prn for pain #HTN - continue carvedilol - hold enalapril in setting of worsening kidney function - continue lasix 40 po #COPD - continue Symbicort and Singulair - albuterol PRN #hx breast Ca - stable - discuss if patient continues tamoxifen before restarting #DVT ppx - heparin TID FEN - NS @ 83 - low sodium/ low sugar diet Dispo: monitor on med surg - medications need to be reconciled Visit type - Emergency Visit Emergency Visit: Yes ED Registration Date: 11/26/18 Care time: The patient presented to the Emergency Department on the above date and was hospitalized for further evaluation of their emergent condition. - New Patient This patient is new to me today: Yes Date on this admission: 11/27/18 - Critical Care Critical Care patient: No ATTENDING PHYSICIAN STATEMENT I saw and evaluated the patient. I reviewed the resident's note and discussed the case with the resident. I agree with the resident's findings and plan as documented. SUBJECTIVE: OBJECTIVE: ASSESSMENT AND PLAN:
[2018-11-26] MEDS ORDERED: PREGABALIN 50 MG CAPSULE PO SCH (06:00)
[2018-11-26] MEDS ORDERED: PREGABALIN 25 MG CAPSULE ONE ×3 (06:02→20:16)
[2018-11-26] MEDS ORDERED: PREGABALIN 50 MG CAPSULE ONE ×3 (06:02→20:16)
[2018-11-26] MEDS ORDERED: HEPARIN NA (PORCINE) 5,000 UNITS/ML 1ML VIAL ONE (06:03)
[2018-11-26] MEDS: HEPARIN NA (PORCINE) 5,000 UNITS/ML 1ML VIAL SQ SCH ×3 (06:45→22:20)
[2018-11-26] MEDS: PREGABALIN 50 MG, PREGABALIN 25 MG PO SCH ×3 (06:45→22:20)
[2018-11-26] MEDS: INSULIN SLIDING SCALE (NOVOLOG) 1 VIAL SQ SCH ×3 (06:52→17:08)
[2018-11-26] MEDS ORDERED: FUROSEMIDE 40 MG TABLET (FP) ONE ×2 (06:55→15:45)
[2018-11-26] MEDS: FUROSEMIDE 40 MG TABLET (FP) PO SCH ×2 (06:58→15:48)
[2018-11-26] MEDS: BUDESONIDE/FORMETEROL FUMARATE 160/4.5 mcg INHALER IH SCH ×2 (09:41→22:37)
[2018-11-26] MEDS: FOLIC ACID 1 MG TABLET (FP) PO SCH (09:41)
[2018-11-26] MEDS: CARVEDILOL 25 MG TABLET (FP) PO SCH ×2 (09:41→22:21)
[2018-11-26] MEDS ORDERED: INSULIN (LEVEMIR) 100 UNITS/ML UNITS SQ SCH (10:00)
[2018-11-26 10:05] LABS: BASO % 0.8 % (0-2.0); EOS % 2.8 % (0-4.5); HEMATOCRIT 25.5 % (32.4-45.2); HEMOGLOBIN 8.6 GM/dL (10.7-15.3); LYMPH % 23.6 % (8-40); MCH 27.8 pg (25.7-33.7); MCHC 33.6 g/dl (32.0-36.0); MEAN CELL VOLUME 82.7 fl (80-96); MEAN PLT VOLUME 8.8 fl (7.5-11.1); MONO % 10.6 % (3.8-10.2); NEUT % 62.2 % (42.8-82.8); PLATELET COUNT 148 K/MM3 (134-434); RBC 3.08 M/mm3 (3.60-5.2); RDW 13.9 % (11.6-15.6); WHITE BLOOD COUNT 6.5 K/mm3 (4.0-10.0)
[2018-11-26 10:34] LABS: ALBUMIN 2.3 g/dl (3.4-5.0); BILIRUBIN,TOTAL 0.2 mg/dL (0.2-1); BLOOD UREA NITROGEN 51.9 mg/dL (7-18); CALCIUM 8.5 mg/dL (8.5-10.1); CREATININE 3.7 mg/dL (0.55-1.3); POTASSIUM 3.4 mmol/L (3.5-5.1); TOT PROT 6.2 g/dl (6.4-8.2)
--- NOTE | 2018-11-26 10:54 | PN ---
Physical Exam: SUBJECTIVE: Patient seen and examined OBJECTIVE: Vital Signs Period Temp Pulse Resp BP Sys/Ronquillo Pulse Ox Last 24 Hr 97.5 F-98.3 F 75-78 18-18 129-141/50-56 97-97 GENERAL: Awake, alert, and fully oriented, in no acute distress. HEAD: Normal with no signs of trauma. EYES: Pupils equal, round and reactive to light, EARS, NOSE, THROAT: Moist mucous membranes. LUNGS: Breath sounds equal, clear to auscultation bilaterally. No wheezes, and no crackles. No accessory muscle use. HEART: Regular rate and rhythm, normal S1 and S2 without murmur, rub or gallop. ABDOMEN: Obese ,Soft, nontender, not distended, large pannus, chronic skin change under but not signs of infection. : small abrasions within labia, no blood or pus noted MUSCULOSKELETAL: R sided CVA tenderness, low back pain to palpation LOWER EXTREMITIES: No peripheral edema. PSYCHIATRIC: Cooperative. SKIN: Warm, dry, Laboratory Results - last 24 hr 11/26/18 11/26/18 11/26/18 01:34 01:34 02:25 WBC 7.4 RBC 3.32 L Hgb 9.1 L Hct 27.9 L MCV 83.8 MCH 27.3 MCHC 32.5 RDW 13.9 D Plt Count 163 D MPV 8.9 Absolute Neuts (auto) 5.2 Neutrophils % 69.2 Lymphocytes % 19.4 D Monocytes % 8.3 D Eosinophils % 2.3 Basophils % 0.8 Nucleated RBC % 0 Sodium 140 Potassium 3.8 Chloride 106 Carbon Dioxide 25 Anion Gap 9 BUN 55.3 H Creatinine 4.3 H Est GFR (CKD-EPI)AfAm 12.42 Est GFR (CKD-EPI)NonAf 10.71 POC Glucometer Random Glucose 502 H* Calcium 8.6 Total Bilirubin 0.2 AST 9 L ALT 16 Alkaline Phosphatase 82 Total Protein 7.0 Albumin 2.6 L Urine Color Yellow Urine Appearance Turbid Urine pH 5.0 Ur Specific [place] 1.021 Urine Protein 2+ H Urine Glucose (UA) 3+ H Urine Ketones Negative Urine Blood 3+ H Urine Nitrite Negative Urine Bilirubin Negative Urine Urobilinogen 0.2 Ur Leukocyte Esterase 2+ H Urine WBC (Auto) 332 Urine RBC (Auto) 5 Urine Casts (Auto) 13 U Pathogenic Cast Auto none seen U Epithel Cells (Auto) 6.8 Urine Bacteria (Auto) 460.5 11/26/18 11/26/18 11/26/18 04:41 06:41 09:40 WBC 6.5 RBC 3.08 L Hgb 8.6 L Hct 25.5 L MCV 82.7 MCH 27.8 MCHC 33.6 RDW 13.9 Plt Count 148 MPV 8.8 Absolute Neuts (auto) 4.0 Neutrophils % 62.2 Lymphocytes % 23.6 D Monocytes % 10.6 H Eosinophils % 2.8 Basophils % 0.8 Nucleated RBC % 0 Sodium Potassium Chloride Carbon Dioxide Anion Gap BUN Creatinine Est GFR (CKD-EPI)AfAm Est GFR (CKD-EPI)NonAf POC Glucometer 379 292 Random Glucose Calcium Total Bilirubin AST ALT Alkaline Phosphatase Total Protein Albumin Urine Color Urine Appearance Urine pH Ur Specific [place] Urine Protein Urine Glucose (UA) Urine Ketones Urine Blood Urine Nitrite Urine Bilirubin Urine Urobilinogen Ur Leukocyte Esterase Urine WBC (Auto) Urine RBC (Auto) Urine Casts (Auto) U Pathogenic Cast Auto U Epithel Cells (Auto) Urine Bacteria (Auto) 11/26/18 09:40 WBC RBC Hgb Hct MCV MCH MCHC RDW Plt Count MPV Absolute Neuts (auto) Neutrophils % Lymphocytes % Monocytes % Eosinophils % Basophils % Nucleated RBC % Sodium 144 Potassium 3.4 L Chloride 113 H Carbon Dioxide 25 Anion Gap 7 L BUN 51.9 H Creatinine 3.7 H Est GFR (CKD-EPI)AfAm 14.89 Est GFR (CKD-EPI)NonAf 12.85 POC Glucometer Random Glucose 210 H Calcium 8.5 Total Bilirubin 0.2 AST 10 L ALT 16 Alkaline Phosphatase 75 Total Protein 6.2 L Albumin 2.3 L Urine Color Urine Appearance Urine pH Ur Specific [place] Urine Protein Urine Glucose (UA) Urine Ketones Urine Blood Urine Nitrite Urine Bilirubin Urine Urobilinogen Ur Leukocyte Esterase Urine WBC (Auto) Urine RBC (Auto) Urine Casts (Auto) U Pathogenic Cast Auto U Epithel Cells (Auto) Urine Bacteria (Auto) Active Medications Generic Name Dose Route Start Last Admin Trade Name Freq PRN Reason Stop Dose Admin Acetaminophen 650 mg 11/26/18 04:19 11/26/18 06:58 Tylenol - PO 650 mg Q4H PRN Administration PAIN Atorvastatin Calcium 20 mg 11/26/18 22:00 Lipitor - PO HS VINCE Budesonide/Formoterol Fumarate 1 puff 11/26/18 10:00 11/26/18 09:41 Symbicort 160/4.5mcg - IH Not Given BID VINCE Carvedilol 25 mg 11/26/18 10:00 11/26/18 09:41 Coreg - PO 25 mg BID VINCE Administration Folic Acid 1 mg 11/26/18 10:00 11/26/18 09:41 Folic Acid - PO 1 mg DAILY VINCE Administration Furosemide 40 mg 11/26/18 06:00 11/26/18 06:58 Lasix - PO 40 mg BIDLASIX VINCE Administration Heparin Sodium (Porcine) 5,000 unit 11/26/18 06:00 11/26/18 06:45 Heparin - SQ 5,000 unit TID VINCE Administration Hydroxychloroquine Sulfate 400 mg 11/26/18 10:00 Plaquenil - PO BID VINCE Ceftriaxone Sodium 1 gm/ 50 mls @ 100 mls/hr 11/26/18 20:00 Dextrose IVPB DAILY [facility] Protocol Sodium Chloride 1,000 mls @ 83 mls/hr 11/26/18 04:30 11/26/18 04:42 Normal Saline - IV 83 mls/hr ASDIR VINCE Administration Insulin Aspart 1 vial 11/26/18 07:00 11/26/18 06:52 Novolog Vial Sliding Scale - SQ 6 unit TIDAC [facility] Administration Protocol Insulin Detemir 25 units 11/26/18 10:00 Levemir Vial SQ BID@0700,2200 [facility] Montelukast Sodium 10 mg 11/26/18 22:00 Singulair - PO HS [facility] Potassium Chloride 20 meq 11/26/18 11:00 K-Dur - PO 11/26/18 11:01 ONCE ONE Pregabalin 50 mg/ Pregabalin 75 mg 11/26/18 06:00 11/26/18 06:45 25 mg PO 75 mg TID VINCE Administration CBC, BMP 11/26/18 09:40 11/26/18 09:40 ASSESSMENT/PLAN: Patient is a 58 y/o female with a history of breast cancer s/p radiation, DM, HTN, CKD, asthma, rheumatoid arthritis, and chronic low back pain who is admitted for [place] vs worsening CKD 2/2 to pyelnoephritis. #[place] vs worsening CKD, * Ceftriaxone 1 gm in ED, would continue 2 gm * UA: + LE, wbc 332 * Abdominal/Pelvis CT no acute pathology * NS @ 83 * Cr 4.3...3.7 repeat lab in AM * f/u urine cx #Uncontrolled DM * 10 units novolog given in ED * likely uncontroleld at baseline, no labs indicative of DKA A * will check BGM, ISS * Levemir 25 BID (was on lantus 28 BID at home ) #Rheumatoid arthritis/ chronic low back pain - methotrexate weekly, discuss with patient what day she takes - tylenol prn for pain #HTN * continue carvedilol * hold enalapril in setting of worsening kidney function * continue lasix 40 po #COPD * continue Symbicort and Singulair * albuterol PRN #hx breast Ca, stable, follow up out pt #DVT ppx * heparin TID FEN * NS @ 83 * low sodium/ low sugar diet * monitor lytes and replenished as needed Dispo: monitor on med surg - medications need to be reconciled Visit type - Emergency Visit Emergency Visit: Yes ED Registration Date: 11/26/18 Care time: The patient presented to the Emergency Department on the above date and was hospitalized for further evaluation of their emergent condition. - New Patient This patient is new to me today: Yes Date on this admission: 11/26/18 - Critical Care Critical Care patient: No ATTENDING PHYSICIAN STATEMENT I saw and evaluated the patient. I reviewed the resident's note and discussed the case with the resident. I agree with the resident's findings and plan as documented. SUBJECTIVE: OBJECTIVE: ASSESSMENT AND PLAN:
[2018-11-26] MEDS ORDERED: POTASSIUM CHLORIDE TABS 20 MEQ TABLET.ER (FP) PO ONE ×2 (11:00→12:17)
--- NOTE | 2018-11-26 13:49 | EKG ---
Test Reason : Blood Pressure : / mmHG Vent. Rate : 074 BPM Atrial Rate : 074 BPM P-R Int : 234 ms QRS Dur : 088 ms QT Int : 448 ms P-R-T Axes : 053 005 101 degrees QTc Int : 497 ms SINUS RHYTHM WITH 1ST DEGREE A-V BLOCK NONSPECIFIC T WAVE ABNORMALITY PROLONGED QT ABNORMAL ECG WHEN COMPARED WITH ECG OF 18-SEP-2017 18:47, [place] INTERVAL HAS INCREASED NONSPECIFIC T WAVE ABNORMALITY, WORSE IN INFERIOR LEADS Confirmed by PAULO SANTOS MD ([id number]) on 11/26/2018 1:48:58 PM Referred By: Confirmed By:PAULO SANTOS MD
--- NOTE | 2018-11-26 17:53 | PN ---
Teaching Attending Note Name of Resident: Portillo Davis ATTENDING PHYSICIAN STATEMENT I saw and evaluated the patient. I reviewed the resident's note and discussed the case with the resident. I agree with the resident's findings and plan as documented. SUBJECTIVE: Ms Tom says she is feeling better today. Has chronic pain but this is unchanged. No cp, sob, n/v. OBJECTIVE: Last Vital Signs Temp Pulse Resp BP Pulse Ox 36.4 C L 78 18 129/56 L 97 11/26/18 07:30 11/26/18 07:30 11/26/18 07:30 11/26/18 07:30 11/26/18 07:30 Gen: nad, obese Pulm: ctab w/o w/r/r CV: rrr w/o m/r/g Abd: +bs, s/nt/nd Ext: no c/c/e CBC, BMP 11/26/18 09:40 11/26/18 09:40 ASSESSMENT AND PLAN: Problem List - Problems (1) UTI (urinary tract infection) Assessment/Plan: -urinalysis positive for UTI -urine culture pending -continue rocephin currently -low suspicion for pyelonephritis at this time Code(s): N39.0 - URINARY TRACT INFECTION, SITE NOT SPECIFIED Qualifiers: Urinary tract infection type: site unspecified Hematuria presence: without hematuria Qualified Code(s): N39.0 - Urinary tract infection, site not specified (2) [place] (acute kidney injury) Assessment/Plan: -improving -continue IVF -will hold lasix at this time Code(s): N17.9 - ACUTE KIDNEY FAILURE, UNSPECIFIED (3) CKD (chronic kidney disease) Assessment/Plan: -will obtain baseline creatinine Code(s): N18.9 - CHRONIC KIDNEY DISEASE, UNSPECIFIED (4) Diabetes Assessment/Plan: -on levemir 25 units SC bid -diabetic diet -FSBS and SSI -obtain home regimen Code(s): E11.9 - TYPE 2 DIABETES MELLITUS WITHOUT COMPLICATIONS Qualifiers:
[2018-11-26] MEDS: HYDROXYCHLOROQUINE SO4 200 MG TABLET (FP) PO SCH ×2 (18:25→22:21)
[2018-11-26] MEDS ORDERED: cefTRIAXone SODIUM 1 GM VIAL ONE (20:08)
[2018-11-26] MEDS ORDERED: DEXTROSE 5%-WATER - 50 ML IVPB ONE (20:09)
[2018-11-26] MEDS ORDERED: INSULIN (NOVOLOG) ASPART 100 UNITS/ML 10ML VIAL ONE (20:16)
[2018-11-26] MEDS: CEFTRIAXONE 1 GM in DEXTROSE 5%-WATER - 50 ML IVPB SCH (20:20)
[2018-11-26] MEDS: INSULIN (LEVEMIR) 100 UNITS/ML UNITS SQ SCH (22:19)
[2018-11-26] MEDS: ATORVASTATIN CA 20 MG TABLET (FP) PO SCH (22:22)
[2018-11-26] MEDS: MONTELUKAST NA 10 MG TABLET PO SCH (22:22)
[2018-11-27] MEDS ORDERED: PREGABALIN 50 MG CAPSULE ONE ×3 (05:03→20:22)
[2018-11-27] MEDS ORDERED: PREGABALIN 25 MG CAPSULE ONE ×3 (05:03→20:22)
[2018-11-27] MEDS: SODIUM CHLORIDE 1,000 ML IV SCH ×3 (05:12→08:03)
[2018-11-27] MEDS: PREGABALIN 50 MG, PREGABALIN 25 MG PO SCH ×3 (05:36→21:13)
[2018-11-27] MEDS: HEPARIN NA (PORCINE) 5,000 UNITS/ML 1ML VIAL SQ SCH ×3 (05:36→21:14)
[2018-11-27] MEDS: INSULIN (LEVEMIR) 100 UNITS/ML UNITS SQ SCH ×2 (06:28→21:14)
[2018-11-27] MEDS: INSULIN SLIDING SCALE (NOVOLOG) 1 VIAL SQ SCH ×3 (06:32→17:05)
[2018-11-27 08:55] LABS: EOS % 3.1 % (0-4.5); HEMATOCRIT 25.3 % (32.4-45.2); HEMOGLOBIN 8.6 GM/dL (10.7-15.3); MCH 27.9 pg (25.7-33.7); MCHC 33.9 g/dl (32.0-36.0); MEAN CELL VOLUME 82.3 fl (80-96); MEAN PLT VOLUME 8.9 fl (7.5-11.1); NEUT % 66.9 % (42.8-82.8); PLATELET COUNT 148 K/MM3 (134-434); RBC 3.07 M/mm3 (3.60-5.2); RDW 13.7 % (11.6-15.6); WHITE BLOOD COUNT 6.9 K/mm3 (4.0-10.0)
[2018-11-27] MEDS ORDERED: cefTRIAXone SODIUM 1 GM VIAL ONE (08:59)
[2018-11-27] MEDS ORDERED: DEXTROSE 5%-WATER - 50 ML IVPB ONE (08:59)
[2018-11-27] MEDS ORDERED: PT OWN MED DRAWER 7, Y5N ONE (08:59)
[2018-11-27] MEDS: PANTOPRAZOLE 40 MG TABLET (FP) PO SCH (09:02)
[2018-11-27] MEDS: HYDROXYCHLOROQUINE SO4 200 MG TABLET (FP) PO SCH ×2 (09:02→21:13)
[2018-11-27] MEDS: TAMOXIFEN CITRATE 10 MG TABLET PO SCH (09:02)
[2018-11-27] MEDS: CARVEDILOL 25 MG TABLET (FP) PO SCH ×2 (09:02→21:13)
[2018-11-27] MEDS: FOLIC ACID 1 MG TABLET (FP) PO SCH (09:03)
[2018-11-27] MEDS: CEFTRIAXONE 1 GM in DEXTROSE 5%-WATER - 50 ML IVPB SCH (09:04)
[2018-11-27] MEDS: BUDESONIDE/FORMETEROL FUMARATE 160/4.5 mcg INHALER IH SCH ×2 (09:08→21:15)
[2018-11-27 09:30] LABS: ALBUMIN 2.4 g/dl (3.4-5.0); BILIRUBIN,TOTAL 0.2 mg/dL (0.2-1); CALCIUM 8.7 mg/dL (8.5-10.1); CREATININE 3.2 mg/dL (0.55-1.3); MAGNESIUM 1.6 mg/dL (1.8-2.4); POTASSIUM 3.9 mmol/L (3.5-5.1); TOT PROT 6.7 g/dl (6.4-8.2)
[2018-11-27] MEDS ORDERED: MAGNESIUM SULF 50% (8.12 MEQ/2 ML-1 GM VIAL) IVPB ONE (10:15)
--- NOTE | 2018-11-27 10:22 | PN ---
Physical Exam: SUBJECTIVE: Patient seen and examined walking around , feeling better , asking when she can go home. OBJECTIVE: Vital Signs Period Temp Pulse Resp BP Sys/Ronquillo Pulse Ox Last 24 Hr 97.5 F-98.5 F 56-69 18-18 140-162/47-77 98 GENERAL:AAOx3 in AND HEAD: NC/AT ENT: Moist mucous membranes. LUNGS:CTA B/L , No wheezes, and no crackles. No accessory muscle use. HEART:RRR, normal S1 and S2 without murmur, rub or gallop. ABDOMEN: Obese ,Soft, nontender, not distended, large pannus, chronic skin change under but not signs of infection. LOWER EXTREMITIES: No peripheral edema. PSYCHIATRIC: Cooperative. SKIN: Warm, dry, Laboratory Results - last 24 hr 11/26/18 11/26/18 11/26/18 09:40 12:26 17:07 WBC RBC Hgb Hct MCV MCH MCHC RDW Plt Count MPV Absolute Neuts (auto) Neutrophils % Lymphocytes % Monocytes % Eosinophils % Basophils % Nucleated RBC % Sodium 144 Potassium 3.4 L Chloride 113 H Carbon Dioxide 25 Anion Gap 7 L BUN 51.9 H Creatinine 3.7 H Est GFR (CKD-EPI)AfAm 14.89 Est GFR (CKD-EPI)NonAf 12.85 POC Glucometer 163 254 Random Glucose 210 H Calcium 8.5 Phosphorus Magnesium Total Bilirubin 0.2 AST 10 L ALT 16 Alkaline Phosphatase 75 Total Protein 6.2 L Albumin 2.3 L 11/26/18 11/27/18 11/27/18 22:15 05:38 08:23 WBC 6.9 RBC 3.07 L Hgb 8.6 L Hct 25.3 L MCV 82.3 MCH 27.9 MCHC 33.9 RDW 13.7 Plt Count 148 MPV 8.9 Absolute Neuts (auto) 4.6 Neutrophils % 66.9 Lymphocytes % 21.0 Monocytes % 8.0 Eosinophils % 3.1 Basophils % 1.0 Nucleated RBC % 0 Sodium Potassium Chloride Carbon Dioxide Anion Gap BUN Creatinine Est GFR (CKD-EPI)AfAm Est GFR (CKD-EPI)NonAf POC Glucometer 181 265 Random Glucose Calcium Phosphorus Magnesium Total Bilirubin AST ALT Alkaline Phosphatase Total Protein Albumin 11/27/18 08:23 WBC RBC Hgb Hct MCV MCH MCHC RDW Plt Count MPV Absolute Neuts (auto) Neutrophils % Lymphocytes % Monocytes % Eosinophils % Basophils % Nucleated RBC % Sodium 146 H Potassium 3.9 Chloride 113 H Carbon Dioxide 25 Anion Gap 9 BUN 49.0 H Creatinine 3.2 H Est GFR (CKD-EPI)AfAm 17.75 Est GFR (CKD-EPI)NonAf 15.31 POC Glucometer Random Glucose 223 H Calcium 8.7 Phosphorus 4.0 Magnesium 1.6 L Total Bilirubin 0.2 AST 11 L ALT 16 Alkaline Phosphatase 74 Total Protein 6.7 Albumin 2.4 L Active Medications Generic Name Dose Route Start Last Admin Trade Name Freq PRN Reason Stop Dose Admin Acetaminophen 650 mg 11/26/18 04:19 11/26/18 06:58 Tylenol - PO 650 mg Q4H PRN Administration PAIN Atorvastatin Calcium 20 mg 11/26/18 22:00 11/26/18 22:22 Lipitor - PO 20 mg HS VINCE Administration Budesonide/Formoterol Fumarate 1 puff 11/26/18 10:00 11/27/18 09:08 Symbicort 160/4.5mcg - IH 1 inh BID VINCE Administration Carvedilol 25 mg 11/26/18 10:00 11/27/18 09:02 Coreg - PO 25 mg BID VINCE Administration Folic Acid 1 mg 11/26/18 10:00 11/27/18 09:03 Folic Acid - PO 1 mg DAILY VINCE Administration Heparin Sodium (Porcine) 5,000 unit 11/26/18 06:00 11/27/18 05:36 Heparin - SQ 5,000 unit TID VINCE Administration Hydroxychloroquine Sulfate 400 mg 11/26/18 10:00 11/27/18 09:02 Plaquenil - PO 400 mg BID VINCE Administration Ceftriaxone Sodium 1 gm/ 50 mls @ 100 mls/hr 11/26/18 20:00 11/27/18 09:04 Dextrose IVPB 100 mls/hr DAILY [facility]INCE Administration Protocol Sodium Chloride 1,000 mls @ 83 mls/hr 11/26/18 04:30 11/27/18 08:03 Normal Saline - IV 83 mls/hr ASDIR VINCE Administration Insulin Aspart 1 vial 11/26/18 07:00 11/27/18 06:32 Novolog Vial Sliding Scale - SQ 6 unit TIDAC VINCE Administration Protocol Insulin Detemir 25 units 11/26/18 22:00 08/09/19 06:28 Levemir Vial SQ 25 units BID@0700,2200 VINCE Administration Montelukast Sodium 10 mg 11/26/18 22:00 11/26/18 22:22 Singulair - PO 10 mg HS VINCE Administration Pantoprazole Sodium 40 mg 11/27/18 10:00 11/27/18 09:02 Protonix - PO 40 mg DAILY VINCE Administration Pregabalin 50 mg/ Pregabalin 75 mg 11/26/18 06:00 11/27/18 05:36 25 mg PO 75 mg TID VINCE Administration Tamoxifen Citrate 20 mg 11/27/18 10:00 11/27/18 09:02 Tamoxifen Citrate PO 20 mg DAILY VINCE Administration CBC, BMP 11/27/18 08:23 11/27/18 08:23 ASSESSMENT/PLAN: Patient is a 58 y/o female with a history of breast cancer s/p radiation, DM, HTN, CKD, asthma, rheumatoid arthritis, and chronic low back pain who is admitted for [place] vs worsening CKD 2/2 to pyelnoephritis. # UTI : UA positive , started on cefriaxone cont , Ucx positive for gram negative rode,pending sensitivity #[place] on CKD, base line 2 per pt improving with hydration , cont to monitor , avoid nephrotoxix agentes , off lasix since April per her pharmacy #Uncontrolled DM BGM , ISS , increased levemir to 35 BID , was on 28 BID at home #Rheumatoid arthritis/ chronic low back pain: on methotrxate weekly , follow up out pt , tylenol for pain #HTN cont Carvediolol, hold lasix and enalapril #COPD:continue Symbicort and Singulair, albuterol PRN #hx breast Ca, stable, follow up out pt , cont Tamoxifine #DVT ppx * heparin TID #FEN * NS @ 83 * low sodium/ low sugar diet * monitor lytes and replenished as needed #Dispo: monitor on med surg *note has not been on lasix since April Visit type - Emergency Visit Emergency Visit: Yes ED Registration Date: 11/26/18 Care time: The patient presented to the Emergency Department on the above date and was hospitalized for further evaluation of their emergent condition. - New Patient This patient is new to me today: No - Critical Care Critical Care patient: No ATTENDING PHYSICIAN STATEMENT I saw and evaluated the patient. I reviewed the resident's note and discussed the case with the resident. I agree with the resident's findings and plan as documented. SUBJECTIVE: OBJECTIVE: ASSESSMENT AND PLAN:
[2018-11-27] MEDS ORDERED: INSULIN (NOVOLOG) ASPART 100 UNITS/ML 10ML VIAL ONE (11:43)
--- NOTE | 2018-11-27 13:25 | PN ---
Teaching Attending Note Name of Resident: Portillo Davis ATTENDING PHYSICIAN STATEMENT I saw and evaluated the patient. I reviewed the resident's note and discussed the case with the resident. I agree with the resident's findings and plan as documented. SUBJECTIVE: Ms Tom says she is doing well. Denies cp, sob, n/v. Has chronic wound under L breast that is unchanged but wanted to make us aware OBJECTIVE: Last Vital Signs Temp Pulse Resp BP Pulse Ox 36.9 C 62 18 162/77 98 11/27/18 10:00 11/27/18 10:00 11/27/18 10:00 11/27/18 10:00 11/26/18 18:00 Gen: nad, morbidly obese Pulm: ctab w/o w/r/r CV: rrr w/o m/r/g Breast: irritation under L breast, but does not look infected Abd: +bs, s/nt/nd Ext: no c/c/e CBC, BMP 11/27/18 08:23 11/27/18 08:23 ASSESSMENT AND PLAN: (1) UTI (urinary tract infection) Assessment/Plan: -urinalysis positive for UTI -urine culture growing gram negative rods -continue rocephin currently Code(s): N39.0 - URINARY TRACT INFECTION, SITE NOT SPECIFIED Qualifiers: Urinary tract infection type: site unspecified Hematuria presence: without hematuria Qualified Code(s): N39.0 - Urinary tract infection, site not specified (2) [place] (acute kidney injury) Assessment/Plan: -improving -continue IVF -will hold lasix at this time -with hypernatremia -change to 1/2 NS Code(s): N17.9 - ACUTE KIDNEY FAILURE, UNSPECIFIED (3) CKD (chronic kidney disease) Assessment/Plan: -patient says creatinine is normally in the 2 -not at baseline Code(s): N18.9 - CHRONIC KIDNEY DISEASE, UNSPECIFIED (4) Diabetes Assessment/Plan: -increase levemir to 35 units bid Code(s): E11.9 - TYPE 2 DIABETES MELLITUS WITHOUT COMPLICATIONS Qualifiers: Problem List - Problems (1) UTI (urinary tract infection) Code(s): N39.0 - URINARY TRACT INFECTION, SITE NOT SPECIFIED Qualifiers: Urinary tract infection type: site unspecified Hematuria presence: without hematuria Qualified Code(s): N39.0 - Urinary tract infection, site not specified (2) [place] (acute kidney injury) Code(s): N17.9 - ACUTE KIDNEY FAILURE, UNSPECIFIED (3) CKD (chronic kidney disease) Code(s): N18.9 - CHRONIC KIDNEY DISEASE, UNSPECIFIED (4) Diabetes Code(s): E11.9 - TYPE 2 DIABETES MELLITUS WITHOUT COMPLICATIONS Qualifiers:
[2018-11-27] MEDS: SODIUM CHLORIDE 0.45% 1,000 ML IV SCH (17:11)
[2018-11-27] MEDS: MINERAL OIL/PET HY-PHL TOPICAL OINTMENT 454 GM JAR TP SCH (18:58)
[2018-11-27] MEDS: MONTELUKAST NA 10 MG TABLET PO SCH (21:13)
[2018-11-27] MEDS: ATORVASTATIN CA 20 MG TABLET (FP) PO SCH (21:13)
[2018-11-28] MEDS ORDERED: PREGABALIN 50 MG CAPSULE ONE (05:49)
[2018-11-28] MEDS ORDERED: PREGABALIN 25 MG CAPSULE ONE (05:49)
[2018-11-28] MEDS: HEPARIN NA (PORCINE) 5,000 UNITS/ML 1ML VIAL SQ SCH (06:03)
[2018-11-28] MEDS: PREGABALIN 50 MG, PREGABALIN 25 MG PO SCH (06:03)
[2018-11-28] MEDS: INSULIN SLIDING SCALE (NOVOLOG) 1 VIAL SQ SCH ×2 (06:11→11:17)
[2018-11-28] MEDS: INSULIN (LEVEMIR) 100 UNITS/ML UNITS SQ SCH (06:12)
[2018-11-28] MEDS: SODIUM CHLORIDE 0.45% 1,000 ML IV SCH ×2 (06:13→08:08)
[2018-11-28] MEDS ORDERED: INSULIN (NOVOLOG) ASPART 100 UNITS/ML 10ML VIAL ONE (06:27)
[2018-11-28 06:58] LABS: BLOOD UREA NITROGEN 48.8 mg/dL (7-18); CALCIUM 8.8 mg/dL (8.5-10.1); CREATININE 2.9 mg/dL (0.55-1.3); MAGNESIUM 1.9 mg/dL (1.8-2.4); PHOSPHOROUS 3.8 mg/dL (2.5-4.9); POTASSIUM 3.7 mmol/L (3.5-5.1)
[2018-11-28 07:06] LABS: BASO % 0.5 % (0-2.0); EOS % 2.4 % (0-4.5); HEMATOCRIT 25.3 % (32.4-45.2); HEMOGLOBIN 8.6 GM/dL (10.7-15.3); LYMPH % 20.1 % (8-40); MCH 27.8 pg (25.7-33.7); MCHC 33.9 g/dl (32.0-36.0); MEAN CELL VOLUME 82.1 fl (80-96); MEAN PLT VOLUME 9.2 fl (7.5-11.1); MONO % 7.1 % (3.8-10.2); NEUT % 69.9 % (42.8-82.8); PLATELET COUNT 147 K/MM3 (134-434); RBC 3.09 M/mm3 (3.60-5.2); RDW 13.9 % (11.6-15.6); WHITE BLOOD COUNT 7.1 K/mm3 (4.0-10.0)
[2018-11-28 10:00] VITALS: BP 146/60; PULSE 62; TEMP 98.5
[2018-11-28] MEDS ORDERED: cefTRIAXone SODIUM 1 GM VIAL ONE (10:51)
[2018-11-28] MEDS ORDERED: DEXTROSE 5%-WATER - 50 ML IVPB ONE (10:51)
[2018-11-28] MEDS: PANTOPRAZOLE 40 MG TABLET (FP) PO SCH (11:07)
[2018-11-28] MEDS: FOLIC ACID 1 MG TABLET (FP) PO SCH (11:07)
[2018-11-28] MEDS: CARVEDILOL 25 MG TABLET (FP) PO SCH (11:07)
[2018-11-28] MEDS: HYDROXYCHLOROQUINE SO4 200 MG TABLET (FP) PO SCH (11:07)
[2018-11-28] MEDS: CEFTRIAXONE 1 GM in DEXTROSE 5%-WATER - 50 ML IVPB SCH (11:07)
[2018-11-28] MEDS: TAMOXIFEN CITRATE 10 MG TABLET PO SCH (11:09)
[2018-11-28] MEDS: BUDESONIDE/FORMETEROL FUMARATE 160/4.5 mcg INHALER IH SCH (11:09)
--- NOTE | 2018-11-28 12:07 | DS ---
Physical Examination Vital Signs: Vital Signs Temperature 36.9 C 11/28/18 09:59 Pulse Rate 62 11/28/18 09:59 Respiratory Rate 18 11/28/18 09:59 Blood Pressure 146/60 11/28/18 09:59 O2 Sat by Pulse Oximetry (%) 96 11/27/18 09:00 Constitutional: Yes: No Distress, Calm, Obese Cardiovascular: Yes: Regular Rate and Rhythm. No: Gallop, Murmur, Rub Respiratory: Yes: Regular, CTA Bilaterally. No: Rales, Rhonchi, Wheezes Gastrointestinal: Yes: Normal Bowel Sounds, Soft. No: Distention, Tenderness Extremities: Yes: WNL Edema: No Labs: CBC, BMP 11/28/18 06:18 11/28/18 06:18 Discharge Summary Reason For Visit: ACUTE KIDNEY INJURY,URINARY TRACT INFECTION,HYPER Current Active Problems [place] (acute kidney injury) (Acute) CKD (chronic kidney disease) (Acute) Hyperglycemia (Acute) UTI (urinary tract infection) (Acute) Hospital Course: (1) UTI (urinary tract infection) Code(s): N39.0 - URINARY TRACT INFECTION, SITE NOT SPECIFIED Qualifiers: Urinary tract infection type: site unspecified Hematuria presence: without hematuria Qualified Code(s): N39.0 - Urinary tract infection, site not specified (2) [place] (acute kidney injury) Code(s): N17.9 - ACUTE KIDNEY FAILURE, UNSPECIFIED (3) CKD (chronic kidney disease) Code(s): N18.9 - CHRONIC KIDNEY DISEASE, UNSPECIFIED (4) Diabetes Code(s): E11.9 - TYPE 2 DIABETES MELLITUS WITHOUT COMPLICATIONS Ms Tom is a very pleasant 58 year old female who comes in with [place] on CKD and UTI. She was admitted to the hospital. She was started on NS and her renal function improved. However she developed hypernatremia so this was changed to 1/2 NS. Her creatinine continued to improve and her sodium normalized. She does not know her exact creatinine but says it is in the 2s. Her creatinine is now 2.9. She is tolerating po liquids and is making urine. She is safe to transition over to oral hydration. She was also found to have a UTI. She was placed on rocephin and urine cultures were sent. She grew Klebsiella that was resistant only to ampicillin. She will finish a course of keflex at home. She is currently safe for discharge home with follow up with her PCP. 33 minutes spent in preparation of this discharge Condition: Good - Instructions Diet, Activity, Other Instructions: diabetic renal diet. continue previous activity. Referrals: Zachary Rogel MD [Non Staff, Medical] - Disposition: HOME - Home Medications Comprehensive Discharge Medication List: Ambulatory Orders Carvedilol 25 mg PO BID 10/22/14 Montelukast Na [Singulair -] 10 mg PO HS 10/22/14 Pregabalin [Lyrica -] 75 mg PO TID 10/22/14 Cholecalciferol (Vitamin D3) [Vitamin D3] 50,000 unit PO WEEKLY 01/26/16 Tamoxifen Citrate 20 mg PO DAILY 05/24/16 Albuterol 0.083% Nebulizer Page [Ventolin 0.083% Nebulizer Soln -] 1 amp NEB DAILY 09/18/17 Atorvastatin Ca [Lipitor] 20 mg PO HS 09/18/17 Budesonide/Formeterol Fumarate [SYMBICORT 160/4.5mcg -] 1 inh PO BID 09/18/17 Enalapril Maleate [Vasotec] 20 mg PO BID 09/18/17 Hydroxychloroquine Sulfate [Plaquenil] 400 mg PO BID 09/18/17 Mesalamine [Pentasa] 1,000 mg PO QID 09/18/17 Pantoprazole Sodium [Protonix] 40 mg PO DAILY 09/18/17 Folic Acid - 1 mg PO DAILY #30 tablet 09/26/17 Insulin Glargine,Hum.rec.anlog [Lantus] 28 unit SQ BID 11/26/18 Insulin Regular, Human [Humulin R U-500 Kwikpen] 35 unit SQ BID 11/26/18 Cephalexin [Keflex] 500 mg PO BID #10 capsule 11/28/18
[2018-11-28] MEDS: MINERAL OIL/PET HY-PHL TOPICAL OINTMENT 454 GM JAR TP SCH (12:55)
== END 2018-11-28 13:06 | disposition home or self-care (01) | DRG 463 ==
LOC: JER 00:05 → JERBED 03:07 → J5S 16:01
PROVIDERS: ADMIT Internal Medicine; ATTEND Internal Medicine
DX: N39.0 Urinary tract infection, site not specified (principal); M06.9 Rheumatoid arthritis, unspecified; J44.9 Chronic obstructive pulmonary disease, unspecified; Z85.3 Personal history of malignant neoplasm of breast; E11.65 Type 2 diabetes mellitus with hyperglycemia; N17.9 Acute kidney failure, unspecified; E87.0 Hyperosmolality and hypernatremia; E66.9 Obesity, unspecified; Z68.41 Body mass index [BMI] 40.0-44.9, adult; N18.3 Chronic kidney disease, stage 3 (moderate); I12.9 Hypertensive chronic kidney disease with stage 1 through stage 4 chronic kidney disease, or unspecified chronic kidney disease; B96.1 Klebsiella pneumoniae [K. pneumoniae] as the cause of diseases classified elsewhere; Z79.4 Long term (current) use of insulin
CPT/HCPCS: 36415; 71045-TC-FY; 74176-TC; 80048; 80053; 81003; 82962; 83735; 84100; 85025; 87086; 87186; 93005; 93010; 99285-25; J1644; J7030

== ENCOUNTER 2019-02-28 23:53 | Inpatient (IN) | payer OTHER ==
[2019-03-01] MEDS ORDERED: ONDANSETRON 4 MG/2 ML VIAL IVPB ONE (01:28)
[2019-03-01] MEDS ORDERED: SODIUM CHLORIDE 1,000 ML IV STA ×2 (01:28→05:44)
[2019-03-01] MEDS ORDERED: ACETAMINOPHEN 1000 MG/100 ML VIAL (NON FORMULARY) IVPB ONE ×2 (01:28→13:24)
--- NOTE | 2019-03-01 01:29 | PDOC ---
Documentation entered by Renee Douglas SCRIBE, acting as scribe for Javier Luevano MD. Javier Luevano MD: This documentation has been prepared by the Misael devries Lincy, SCRIBE, under my direction and personally reviewed by me in its entirety. I confirm that the documentation accurately reflects all work, treatment, procedures, and medical decision making performed by me. History of Present Illness - General Chief Complaint: Pain Stated Complaint: ABD PAIN/VOMITING Time Seen by Provider: 03/01/19 01:21 - History of Present Illness Initial Comments: 03/01/19 01:29 58 F with h/o breast cancer s/p radiation, DM, HTN, CKD, asthma, rheumatoid arthritis, fibromyalgia, chronic low back, ventral hernia, presenting to ED with abdominal pain, distention, and vomiting. Pt states that her symptoms began approx 3 days ago. She reports diffuse abdominal pain associated with abdominal distention and "tightening". She notes several episodes of nausea and vomiting over the past 3 days, stating that she is unable to keep anything down. Denies diarrhea/constipation. Reports having 5 normal BMs in the past 3 days. Denies F/C. Denies CP/SOB. Pt states she has had prior appendectomy, cholecystectomy, hysterectomy. Past History - Past Medical History Allergies/Adverse Reactions: Allergies Allergy/AdvReac Type Severity Reaction Status Date / Time shellfish derived Allergy Swelling Verified 03/01/19 06:23 Home Medications: Ambulatory Orders Carvedilol 25 mg PO BID 10/22/14 Montelukast Na [Singulair -] 10 mg PO HS 10/22/14 Pregabalin [Lyrica -] 75 mg PO TID 10/22/14 Cholecalciferol (Vitamin D3) [Vitamin D3] 50,000 unit PO WEEKLY 01/26/16 Tamoxifen Citrate 20 mg PO DAILY 05/24/16 Albuterol 0.083% Nebulizer Page [Ventolin 0.083% Nebulizer Soln -] 1 amp NEB DAILY 09/18/17 Atorvastatin Ca [Lipitor] 20 mg PO HS 09/18/17 Budesonide/Formeterol Fumarate [SYMBICORT 160/4.5mcg -] 1 inh PO BID 09/18/17 Enalapril Maleate [Vasotec] 20 mg PO BID 09/18/17 Hydroxychloroquine Sulfate [Plaquenil] 400 mg PO BID 09/18/17 Mesalamine [Pentasa] 1,000 mg PO QID 09/18/17 Pantoprazole Sodium [Protonix] 40 mg PO DAILY 09/18/17 Folic Acid - 1 mg PO DAILY #30 tablet 09/26/17 Insulin Glargine,Hum.rec.anlog [Lantus] 28 unit SQ BID 11/26/18 Insulin Regular, Human [Humulin R U-500 Kwikpen] 25 unit SQ BID 11/26/18 Atorvastatin Ca [Lipitor] 20 mg PO HS 03/01/19 Duloxetine HCl 20 mg PO DAILY 03/01/19 Potassium Chloride 1 tab PO DAILY 03/01/19 Anemia: Yes Asthma: Yes Cancer: Yes (BREAST(LT)) COPD: No Diabetes: Yes HTN: Yes Hypercholesterolemia: Yes - Surgical History Abdominal Surgery: Yes (cholycystectomy) Appendectomy: Yes Cholecystectomy: Yes - Psycho Social/Smoking Cessation Hx Smoking History: Never smoked Have you smoked in the past 12 months: No Hx Alcohol Use: No Drug/Substance Use Hx: No Substance Use Type: None Hx Substance Use Treatment: No Review of Systems - Review of Systems Comments:: 03/01/19 01:31 "GENERAL/CONSTITUTIONAL: No fever or chills. No weakness. HEAD, EYES, EARS, NOSE AND THROAT: No change in vision. No ear pain or discharge. No sore throat. CARDIOVASCULAR: No chest pain, no shortness of breath, no loss of consciousness RESPIRATORY: No cough, wheezing, or hemoptysis. GASTROINTESTINAL: + N +V, +abdominal pain GENITOURINARY: No dysuria, frequency, or change in urination. MUSCULOSKELETAL: No joint or muscle swelling or pain. No neck or back pain. SKIN: No rash NEUROLOGIC: No vertigo, no change in strength/sensation. ENDOCRINE: No increased thirst. No abnormal weight change. HEMATOLOGIC/LYMPHATIC: No anemia, easy bleeding, or history of blood clots. ALLERGIC/IMMUNOLOGIC: No hives or skin allergy. *Physical Exam - Vital Signs Last Vital Signs Temp Pulse Resp BP Pulse Ox 98.3 F 101 H 19 146/79 98 02/28/19 23:55 02/28/19 23:55 02/28/19 23:55 02/28/19 23:55 02/28/19 23:55 - Physical Exam Comments: 03/01/19 01:31 GENERAL: Awake, alert, and fully oriented, in no acute distress. HEAD: No signs of trauma EYES: PERRLA, EOMI, sclera anicteric, conjunctiva clear ENT: Auricles normal inspection, hearing grossly normal, nares patent, oropharynx clear without exudates. Moist mucosa NECK: Nontender, no stepoffs, Normal ROM, supple, no lymphadenopathy, JVD, or masses LUNGS: Breath sounds equal, clear to auscultation bilaterally. No wheezes, and no crackles HEART: Regular rate and rhythm, normal S1 and S2, no murmurs, rubs or gallops ABDOMEN: + distended + tympanitic, + diffusely tender, + palpable ventral hernia EXTREMITIES: Normal range of motion, no edema. No clubbing or cyanosis. No cords, erythema, or tenderness NEUROLOGICAL: Cranial nerves II through XII intact. 5/5 strength and sensation in all extremities, Normal speech, normal gait, normal cerebellar function SKIN: Warm, Dry, normal turgor, no rashes or lesions noted. ED Treatment Course - LABORATORY CBC & Chemistry Diagram: 03/03/19 07:03 03/03/19 07:03 Medical Decision Making - Critical Care Time Total Critical Care Time (minutes): 60 Critical Care Statement: The care of this patient involved high complexity decision making to prevent further life threatening deterioration of the patient 's condition and/or to evaluate & treat vital organ system(s) failure or risk of failure. - Medical Decision Making 03/01/19 01:32 58 F with abdominal pain, N+V. Concerning for SBO. Possible incarcerated hernia. - Labs, lactate - CTAP - IVF, zofran 03/01/19 02:54 Pt placed in trendelenberg, ice pack applied to hernia IV tylenol and morphine given 03/01/19 04:37 Unable to reduce hernia at bedside CT shows SBO likely 2/[address] Copeland consulted, will take pt to OR today. 03/01/19 05:21 NG tube placed Discharge - Discharge Information Problems reviewed: Yes Clinical Impression/Diagnosis: Nausea & vomiting, Umbilical hernia, SBO (small bowel obstruction) Condition: Fair - Admission Yes - Follow up/Referral - Patient Discharge Instructions - Post Discharge Activity
[2019-03-01] MEDS ORDERED: ONDANSETRON 4 MG/2 ML VIAL ONE (01:38)
[2019-03-01] MEDS ORDERED: ACETAMINOPHEN INJECTION 100 ML IVPB ONE ×2 (01:38→13:20)
[2019-03-01 02:12] LABS: BASO % 0.7 % (0-2.0); EOS % 0.1 % (0-4.5); HEMATOCRIT 35.7 % (32.4-45.2); HEMOGLOBIN 11.4 GM/dL (10.7-15.3); LYMPH % 7.5 % (8-40); MCH 26.5 pg (25.7-33.7); MEAN CELL VOLUME 82.8 fl (80-96); MONO % 6.4 % (3.8-10.2); NEUT % 85.3 % (42.8-82.8); PLATELET COUNT 238 K/MM3 (134-434); RBC 4.31 M/mm3 (3.60-5.2); RDW 14.9 % (11.6-15.6); WHITE BLOOD COUNT 13.9 K/mm3 (4.0-10.0)
[2019-03-01 02:20] LABS: EPI CELLS 4.1 /HPF (0-5/HPF); HYALINE CASTS 3 /lpf (0-8); PH,URINE 6.5 (5.0-8.0); URINE APPEARANCE CLEAR; URINE BILIRUBIN NEGATIVE (NEGATIVE); URINE COLOR YELLOW; URINE GLUCOSE (UA) 3+ (NEGATIVE); URINE KETONE NEGATIVE (NEGATIVE); URINE LEUK ESTERASE NEGATIVE (NEGATIVE); URINE NITRITE NEGATIVE (NEGATIVE); URINE PROTEIN 3+ (NEGATIVE); URINE RBC 3 /hpf (0-4); URINE UROBILINOGEN 0.2 mg/dL (0.2-1.0); URINE WBC 8 /hpf (0-5)
[2019-03-01 02:32] LABS: INR 1.1 (0.83-1.09)
[2019-03-01 02:37] LABS: MAGNESIUM 1.9 mg/dL (1.8-2.4); PHOSPHOROUS 4.1 mg/dL (2.5-4.9)
[2019-03-01 02:47] LABS: ALBUMIN 2.8 g/dl (3.4-5.0); BILIRUBIN,TOTAL 0.5 mg/dL (0.2-1); BLOOD UREA NITROGEN 38.7 mg/dL (7-18); CALCIUM 9.2 mg/dL (8.5-10.1); CREATININE 3.5 mg/dL (0.55-1.3); POTASSIUM 5.1 mmol/L (3.5-5.1); TOT PROT 7.2 g/dl (6.4-8.2)
[2019-03-01] MEDS ORDERED: morphine CARPU-JECT 4 MG/1 ML DISP.SYRIN IVPUSH ONE (02:54)
[2019-03-01] MEDS ORDERED: morphine SULFATE 4 MG/ML VIAL ONE (03:56)
--- NOTE | 2019-03-01 05:16 | PN ---
Teaching Attending Note Name of Resident: Georgiana Sherman ATTENDING PHYSICIAN STATEMENT I saw and evaluated the patient. I reviewed the resident's note and discussed the case with the resident. I agree with the resident's findings and plan as documented. SUBJECTIVE: Patient is a 58 year old woman with PMH of Left breast cancer (s/p radiation) on chemotherapy, Insulin-treated DM, HTN, CKD, Asthma, Rheumatoid arthritis, Fibromyalgia, Chronic low back pain and Ventral hernia, presenting to the ER with abdominal pain, distention, and vomiting. Patient states that her symptoms began about 3 days ago. She reports diffuse abdominal pain associated with abdominal distention and "tightening". She notes several episodes of nausea and vomiting over the past 3 days, stating that she is unable to keep anything down. Had some fever and chills. Denies diarrhea, constipation, chest pain, headache, dizziness, SOB or dysuria. Reports having 5 normal BMs in the past 3 days. Has had appendectomy, cholecystectomy and hysterectomy. Denies tobacco, alcohol or illicit drug use. Has FH of dementia, DM, HLD and RA. OBJECTIVE: Alert Vital Signs Period Temp Pulse Resp BP Sys/Ronquillo Pulse Ox Last 24 Hr 98.3 F 86-101 17-19 146-146/65-79 97-98 HEENT: No Jaundice, eye redness or discharge, PERRLA, EOMI. Normocephalic, atraumatic. External ears are normal and hearing is grossly intact. No nasal discharge. Neck: Supple, nontender. No palpable adenopathy or thyromegaly. No JVD Chest: Good effort. Clear to auscultation and percussion. Heart: Regular. No S3, rub or murmur Abdomen: Distended, diffuse tenderness, Pannus, Unable to reduce hernia and no HSM. NGT in place. No rebound: +guarding. Normal bowel sounds. Ext: Peripheral pulses intact. No leg edema. Gangrenous ulcer right big toe. Skin: Warm and dry. No petechiae, rash or ecchymosis. Neuro: Alert. Oriented x3. CN 2-12 grossly intact. Sensation grossly intact in all four extremities and DTR are symmetric. Psych: Appropriate mood and affect. Good insight. Home Medications Medication Instructions Recorded Carvedilol 25 mg PO BID 10/22/14 Montelukast Na [Singulair -] 10 mg PO HS 10/22/14 Pregabalin [Lyrica -] 75 mg PO TID 10/22/14 Cholecalciferol (Vitamin D3) 50,000 unit PO WEEKLY 01/26/16 [Vitamin D3] Tamoxifen Citrate 20 mg PO DAILY 05/24/16 Albuterol 0.083% Nebulizer Page 1 amp NEB DAILY 09/18/17 [Ventolin 0.083% Nebulizer Soln -] Atorvastatin Ca [Lipitor] 20 mg PO HS 09/18/17 Budesonide/Formeterol Fumarate 1 inh PO BID 09/18/17 [SYMBICORT 160/4.5mcg -] Enalapril Maleate [Vasotec] 20 mg PO BID 09/18/17 Hydroxychloroquine Sulfate 400 mg PO BID 09/18/17 [Plaquenil] Mesalamine [Pentasa] 1,000 mg PO QID 09/18/17 Pantoprazole Sodium [Protonix] 40 mg PO DAILY 09/18/17 Folic Acid - 1 mg PO DAILY #30 tablet 09/26/17 Insulin Glargine,Hum.rec.anlog 28 unit SQ BID 11/26/18 [Lantus] Insulin Regular, Human [Humulin R 35 unit SQ BID 11/26/18 U-500 Kwikpen] Cephalexin [Keflex] 500 mg PO BID #10 capsule 11/28/18 Abnormal Lab Results 03/01/19 03/01/19 03/01/19 01:52 01:52 01:52 WBC 13.9 H Absolute Neuts (auto) 11.8 H Neutrophils % 85.3 H D Lymphocytes % 7.5 L D INR Anion Gap 7 L BUN 38.7 H Creatinine 3.5 H Random Glucose 409 H* Lactic Acid 3.3 H* Albumin 2.8 L Urine Protein Urine Glucose (UA) Urine Blood 03/01/19 03/01/19 01:52 01:52 WBC Absolute Neuts (auto) Neutrophils % Lymphocytes % INR 1.10 H Anion Gap BUN Creatinine Random Glucose Lactic Acid Albumin Urine Protein 3+ H Urine Glucose (UA) 3+ H Urine Blood 1+ H ASSESSMENT AND PLAN: 1. Small bowel obstruction - CT abdomen/pelvis show SBO likely due to incacerated ventral hernia. Surgery consulted. Patient being kept NPO for planned surgery today and getting IV NS. EKG shows NSR with rate of 97 and prolonged QTc - will avoid zofran and protonix. Leukocytosis may signal stress - however, she had fever and chills at home - will get blood cultures, CXR and treat with IV Zosyn (adjusted for GFR). Consult ID. Lactic acidosis more likely due to vomiting and uncontrolled DM - continue IV NS and trend lactic acid. Consult Podiatry for right big toe ulcer and provide daily care. Will continue comprehensive care for all of patients comorbid conditions. 2. Hypoalbuminemia - Possibly due to combined effects of proteinuria, malnutrition and inflammation associated with comorbid chronic conditions. Will ensure adequate dietary protein intake and also consult wealth management director. 3. Uncontrolled DM For now, we will hold the home diabetes drugs and implement sliding scale insulin regimen. Provide comprehensive diabetes care with patient teaching and counseling about the importance of adherence to prescribed diabetes regimen, euglycemia, eye care and foot care. 4. CKD - Likely due to diabetic nephropathy. Will consult nephrology and avoid nephrotoxic agents such as NSAIDS, aminoglycosides, contrast dyes and certain Alternative medicine products. 5. Obesity Counseled on the risks associated with obesity. Will provide patient all the necessary assistance, counseling and positive reinforcement to facilitate weight loss. Consult wealth management director. 6. Hypertension - Restart suitable outpatient antihypertensive drugs when clinically appropriate. Revise regimen to ensure [id number] excellent BP control and pet counselor patient on the injurious effects of uncontrolled hypertension. Nonpharmacologic measures to control hypertension like weight loss , salt restriction and exercise discussed. Importance of adherence to treatment regimen and attainment of normotension emphasized. 7. DVT prophylaxis - SCD 8. Advance directives - Full code
[2019-03-01] MEDS ORDERED: PROCHLORPERAZINE INJECTION 10 MG/2 ML VIAL IVPB PRN ×2 (06:24→11:33)
[2019-03-01] MEDS ORDERED: PIPERACILLIN/TAZOB 3.375 GM 3.375 GM in DEXTROSE 5%-WATER - 50 ML IVPB SCH ×3 (06:30→18:00)
[2019-03-01] MEDS ORDERED: ACETAMINOPHEN 1000 MG/100 ML VIAL (NON FORMULARY) IVPB PRN (06:30)
[2019-03-01] MEDS ORDERED: SODIUM CHLORIDE 1,000 ML IV SCH (06:30)
[2019-03-01] MEDS ORDERED: PIPERACILLIN/TAZOB 3.375 GM 3.375 GM/50 ML BAG IVPB ONE (06:39)
--- NOTE | 2019-03-01 06:48 | HP ---
CHIEF COMPLAINT: N/V, abdominal distention, abdominal pain X3D PCP: Dr. Rogel HISTORY OF PRESENT ILLNESS: Pt is a 58 y/o F w/ pmhx of L breast CA (s/p radiation, currently on oral chemotherapy), insulin dependent DM, HTN, CKD, diabetic retinopathy, asthma, RA , fibromyalgia, chronic low back pain, and ventral hernia presenting to ED complaining of worsening nausea, multiple episodes of vomiting, diffuse abdominal pain and fatigue which began 3 days ago. Per pt she was seen at [facility] with similar symptoms February 12 but per the pt was discharged without any diagnosis. Her symptoms had improved and then 3 days ago began again and got much worse. Pt states abdominal pain is achy, constant and rated as 10/10. She has not been able to keep anything down including her medications. She also admits that she has not taken her insulin for the past few days due to generalized weakness. Pt reports she tried taking Pepto-Bismol and Alkaselzer but these did not improve pts symptoms. Pt also complaining of subjective fever (in the 99s), chills, and dizziness. Pt denies [place], SOB, chest pain, urinary changes or constipation/ diarrhea. Pt also reports a R toe wound which was blistering at first but now seems to be a non-purulent and black appearing ulcer. ER course was notable for: (1) Abd CT- prelim read showing likely incarcerated ventral hernia (2)Dr. Copeland, general surgery consulted, pt for OR today (3) EKG shows NSR with rate of 97 and prolonged QTc - will avoid zofran and protonix. 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 Resident: Pt currently lives alone; Pt uses a walker for ambulation Fhx: Father: DM, HTN, HLD; Mother: RA, Fibromyalgia, Dementi Allergies shellfish derived Allergy (Verified 03/01/19 06:23) Swelling HOME MEDICATIONS: Home Medications Medication Instructions Recorded Carvedilol 25 mg PO BID 10/22/14 Montelukast Na [Singulair -] 10 mg PO HS 10/22/14 Pregabalin [Lyrica -] 75 mg PO TID 10/22/14 Cholecalciferol (Vitamin D3) 50,000 unit PO WEEKLY 01/26/16 [Vitamin D3] Tamoxifen Citrate 20 mg PO DAILY 05/24/16 Albuterol 0.083% Nebulizer Page 1 amp NEB DAILY 09/18/17 [Ventolin 0.083% Nebulizer Soln -] Atorvastatin Ca [Lipitor] 20 mg PO HS 09/18/17 Budesonide/Formeterol Fumarate 1 inh PO BID 09/18/17 [SYMBICORT 160/4.5mcg -] Enalapril Maleate [Vasotec] 20 mg PO BID 09/18/17 Hydroxychloroquine Sulfate 400 mg PO BID 09/18/17 [Plaquenil] Mesalamine [Pentasa] 1,000 mg PO QID 09/18/17 Pantoprazole Sodium [Protonix] 40 mg PO DAILY 09/18/17 Folic Acid - 1 mg PO DAILY #30 tablet 09/26/17 Insulin Glargine,Hum.rec.anlog 28 unit SQ BID 11/26/18 [Lantus] Insulin Regular, Human [Humulin R 35 unit SQ BID 11/26/18 U-500 Kwikpen] Cephalexin [Keflex] 500 mg PO BID #10 capsule 11/28/18 REVIEW OF SYSTEMS CONSTITUTIONAL: fever, chills, generalized weakness, Absent: diaphoresis, malaise, loss of appetite, weight change HEENT: Absent: rhinorrhea, nasal congestion, throat pain, throat swelling, difficulty swallowing, mouth swelling, ear pain, eye pain, visual changes CARDIOVASCULAR: Absent: chest pain, syncope, palpitations, irregular heart rate, lightheadedness , peripheral edema RESPIRATORY: Absent: cough, shortness of breath, dyspnea with exertion, orthopnea, wheezing, stridor, hemoptysis GASTROINTESTINAL: abdominal pain, abdominal distension, nausea, vomiting, Absent: diarrhea, constipation, melena, hematochezia GENITOURINARY: Absent: dysuria, frequency, urgency, hesitancy, hematuria, flank pain, genital pain MUSCULOSKELETAL: Absent: myalgia, arthralgia, joint swelling, back pain, neck pain SKIN: Absent: rash, itching, pallor HEMATOLOGIC/IMMUNOLOGIC: Absent: easy bleeding, easy bruising, lymphadenopathy, frequent infections ENDOCRINE: Absent: unexplained weight gain, unexplained weight loss, heat intolerance, cold intolerance NEUROLOGIC: Absent: headache, focal weakness or paresthesias, dizziness, unsteady gait, seizure, mental status changes, bladder or bowel incontinence PSYCHIATRIC: Absent: anxiety, depression, suicidal or homicidal ideation, hallucinations. PHYSICAL EXAMINATION Vital Signs - 24 hr 02/28/19 03/01/19 03/01/19 23:55 04:27 06:16 Temperature 98.3 F 98.6 F Pulse Rate 101 H Pulse Rate [ 86 96 H Left] Respiratory 19 17 20 Rate Blood Pressure 146/79 Blood Pressure 146/65 122/61 [Right Arm] O2 Sat by Pulse 98 97 95 Oximetry (%) GENERAL: Awake, alert, and fully oriented, in mild distress, NGT in place and draining HEAD: Normal with no signs of trauma. EYES: Pupils equal, round and reactive to light, extraocular movements intact, sclera anicteric, conjunctiva clear. No lid lag. EARS, NOSE, THROAT: Ears normal, nares patent, oropharynx clear without exudates. Dry mucous membranes. NECK: Normal range of motion, supple without lymphadenopathy, JVD, or masses. LUNGS: Breath sounds equal, clear to auscultation bilaterally. No wheezes, and no crackles. No accessory muscle use. HEART: Regular rate and rhythm, normal S1 and S2 without murmur. ABDOMEN: Soft,diffusely TTP in all quadrants but worse in the lower half of the abdomen, distended, normoactive bowel sounds, guarding, no rebound, no masses. Unable to Unable to palpate umbilical hernia as pt was in too much pain. Pt has large pannus but was unable to lift to look underneath as pt was in too much pain. MUSCULOSKELETAL: Normal range of motion at all joints. No bony deformities or tenderness. No CVA tenderness. UPPER EXTREMITIES: 2+ pulses, warm, well-perfused. No cyanosis. No clubbing. No peripheral edema. LOWER EXTREMITIES: 2+ pulses, warm, well-perfused. No calf tenderness.1 + peripheral edema to the knee. Black, non-purulent, non-erythematous, dry necrotic looking ulcer on side of R first toe. Not pianful to palpation NEUROLOGICAL: Cranial nerves II-XII intact. Normal speech. PSYCHIATRIC: Cooperative. Good eye contact. Appropriate mood and affect. SKIN: Warm, dry, normal turgor, 1 + peripheral edema to the knee. Black, non- purulent, non-erythematous, dry necrotic looking ulcer on side of R first toe. Not pianful to palpation. Laboratory Results - last 24 hr 03/01/19 03/01/19 03/01/19 01:49 01:52 01:52 WBC RBC Hgb Hct MCV MCH MCHC RDW Plt Count MPV Absolute Neuts (auto) Neutrophils % Lymphocytes % Monocytes % Eosinophils % Basophils % Nucleated RBC % PT with INR INR PTT (Actin FS) 30.1 Sodium Potassium Chloride Carbon Dioxide Anion Gap BUN Creatinine Est GFR (CKD-EPI)AfAm Est GFR (CKD-EPI)NonAf POC Glucometer 400 Random Glucose Lactic Acid Calcium Phosphorus Magnesium Total Bilirubin AST ALT Alkaline Phosphatase Creatine Kinase 97 Troponin I < 0.02 Total Protein Albumin Lipase Urine Color Urine Appearance Urine pH Ur Specific [place] Urine Protein Urine Glucose (UA) Urine Ketones Urine Blood Urine Nitrite Urine Bilirubin Urine Urobilinogen Ur Leukocyte Esterase Urine WBC (Auto) Urine RBC (Auto) Urine Casts (Auto) U Epithel Cells (Auto) Urine Bacteria (Auto) Blood Type Antibody Screen 03/01/19 03/01/19 03/01/19 01:52 01:52 01:52 WBC 13.9 H RBC 4.31 Hgb 11.4 Hct 35.7 D MCV 82.8 MCH 26.5 MCHC 32.0 RDW 14.9 Plt Count 238 D MPV 9.0 Absolute Neuts (auto) 11.8 H Neutrophils % 85.3 H D Lymphocytes % 7.5 L D Monocytes % 6.4 Eosinophils % 0.1 D Basophils % 0.7 Nucleated RBC % 0 PT with INR INR PTT (Actin FS) Sodium 138 Potassium 5.1 Chloride 104 Carbon Dioxide 27 Anion Gap 7 L BUN 38.7 H Creatinine 3.5 H Est GFR (CKD-EPI)AfAm 15.93 Est GFR (CKD-EPI)NonAf 13.74 POC Glucometer Random Glucose 409 H* Lactic Acid 3.3 H* Calcium 9.2 Phosphorus Magnesium Total Bilirubin 0.5 AST 24 ALT 21 Alkaline Phosphatase 89 Creatine Kinase Troponin I Total Protein 7.2 Albumin 2.8 L Lipase Urine Color Urine Appearance Urine pH Ur Specific [place] Urine Protein Urine Glucose (UA) Urine Ketones Urine Blood Urine Nitrite Urine Bilirubin Urine Urobilinogen Ur Leukocyte Esterase Urine WBC (Auto) Urine RBC (Auto) Urine Casts (Auto) U Epithel Cells (Auto) Urine Bacteria (Auto) Blood Type Antibody Screen 03/01/19 03/01/19 03/01/19 01:52 01:52 01:52 WBC RBC Hgb Hct MCV MCH MCHC RDW Plt Count MPV Absolute Neuts (auto) Neutrophils % Lymphocytes % Monocytes % Eosinophils % Basophils % Nucleated RBC % PT with INR 13.00 INR 1.10 H PTT (Actin FS) Sodium Potassium Chloride Carbon Dioxide Anion Gap BUN Creatinine Est GFR (CKD-EPI)AfAm Est GFR (CKD-EPI)NonAf POC Glucometer Random Glucose Lactic Acid Calcium Phosphorus 4.1 Magnesium 1.9 Total Bilirubin AST ALT Alkaline Phosphatase Creatine Kinase Troponin I Total Protein Albumin Lipase 89 Urine Color Urine Appearance Urine pH Ur Specific [place] Urine Protein Urine Glucose (UA) Urine Ketones Urine Blood Urine Nitrite Urine Bilirubin Urine Urobilinogen Ur Leukocyte Esterase Urine WBC (Auto) Urine RBC (Auto) Urine Casts (Auto) U Epithel Cells (Auto) Urine Bacteria (Auto) Blood Type A POSITIVE Antibody Screen Negative 03/01/19 01:52 WBC RBC Hgb Hct MCV MCH MCHC RDW Plt Count MPV Absolute Neuts (auto) Neutrophils % Lymphocytes % Monocytes % Eosinophils % Basophils % Nucleated RBC % PT with INR INR PTT (Actin FS) Sodium Potassium Chloride Carbon Dioxide Anion Gap BUN Creatinine Est GFR (CKD-EPI)AfAm Est GFR (CKD-EPI)NonAf POC Glucometer Random Glucose Lactic Acid Calcium Phosphorus Magnesium Total Bilirubin AST ALT Alkaline Phosphatase Creatine Kinase Troponin I Total Protein Albumin Lipase Urine Color Yellow Urine Appearance Clear Urine pH 6.5 D Ur Specific [place] 1.017 Urine Protein 3+ H Urine Glucose (UA) 3+ H Urine Ketones Negative Urine Blood 1+ H Urine Nitrite Negative Urine Bilirubin Negative Urine Urobilinogen 0.2 Ur Leukocyte Esterase Negative Urine WBC (Auto) 8 Urine RBC (Auto) 3 Urine Casts (Auto) 3 U Epithel Cells (Auto) 4.1 Urine Bacteria (Auto) 140.0 Blood Type Antibody Screen ASSESSMENT/PLAN: Pt is a 58 y/o F w/ pmhx of L breast CA (s/p radiation, currently on oral chemotherapy), insulin dependent DM, HTN, CKD, diabetic retinopathy, asthma, RA , fibromyalgia, chronic low back pain, and ventral hernia presenting to ED complaining of worsening nausea, multiple episodes of vomiting, diffuse abdominal pain and fatigue which began 3 days ago. # SBO CT abdomen/pelvis show SBO likely due to incacerated ventral hernia. - Surgery, Dr. Copeland, consulted. Appreciate recommendations - Patient being kept NPO for planned surgery today - IV LR @ 100cc/h - EKG shows NSR with rate of 97 and prolonged QTc - will avoid zofran and protonix. # Leukocytosis may be 2/2 stress howecer pt endorsing fever and chills at home - get blood cultures - CXR - treat with IV Zosyn (adjusted for GFR) - Consult ID. # Lactic acidosis - likely 2/2 vomiting and uncontrolled DM - continue IV NS - trend lactic acid q4h until normalized. # Hypoalbuminemia- Possibly due to combined effects of proteinuria, malnutrition and inflammation associated with co-morbid chronic conditions. - ensure adequate dietary protein intake and also consult hydraulics teacher. # Uncontrolled DM - hold home diabetes drugs - BGM ACHS - ISS # Toe Ulcer - Consult Podiatry for right big toe ulcer - provide daily care. # CKD/ [place] Likely due to diabetic nephropathy. (Cr 3.5, baseline 2.7) - consult nephrology - avoid nephrotoxic agents such as NSAIDS, aminoglycosides, contrast dyes and certain Alternative medicine products. # HTN - resume home meds when clinically appropriate. # FEN - LR @ 100cc/h - monitor replete PRN - NPO for surgery today # PPx - DVT prophylaxis - SCDs # Dispo- admit to med-surg, full code Visit type - Emergency Visit Emergency Visit: Yes ED Registration Date: 03/01/19 Care time: The patient presented to the Emergency Department on the above date and was hospitalized for further evaluation of their emergent condition. - New Patient This patient is new to me today: Yes Date on this admission: 03/01/19 - Critical Care Critical Care patient: No ATTENDING PHYSICIAN STATEMENT I saw and evaluated the patient. I reviewed the resident's note and discussed the case with the resident. I agree with the resident's findings and plan as documented. SUBJECTIVE: OBJECTIVE: ASSESSMENT AND PLAN:
[2019-03-01] MEDS ORDERED: INSULIN SLIDING SCALE (NOVOLOG) 1 VIAL SQ SCH (07:00)
[2019-03-01 07:44] LABS: BASO % 0.7 % (0-2.0); EOS % 0.4 % (0-4.5); HEMATOCRIT 32.5 % (32.4-45.2); HEMOGLOBIN 10.6 GM/dL (10.7-15.3); LYMPH % 12.9 % (8-40); MCH 26.7 pg (25.7-33.7); MCHC 32.5 g/dl (32.0-36.0); MEAN CELL VOLUME 82.2 fl (80-96); MEAN PLT VOLUME 8.5 fl (7.5-11.1); MONO % 9.5 % (3.8-10.2); NEUT % 76.5 % (42.8-82.8); PLATELET COUNT 204 K/MM3 (134-434); RBC 3.95 M/mm3 (3.60-5.2); RDW 14.9 % (11.6-15.6); WHITE BLOOD COUNT 9.4 K/mm3 (4.0-10.0)
[2019-03-01] MEDS ORDERED: EPHEDRINE SULFATE/0.9% NACL/PF 50 MG/10 ML SYRINGE NR ONE (07:52)
[2019-03-01] MEDS ORDERED: SUCCINYLCHOLINE CHLORIDE 200 MG/10 ML SYRINGE ONE (07:52)
[2019-03-01] MEDS ORDERED: PROPOFOL 20 ML ONE ×2 (07:52)
[2019-03-01] MEDS ORDERED: ROCURONIUM BROMIDE 50 MG/5 ML SYRINGE ONE ×2 (07:53→09:06)
[2019-03-01] MEDS ORDERED: ePHEDrine SULFATE 50 MG/1 ML AMPULE ONE (07:53)
[2019-03-01 08:17] LABS: ALBUMIN 2.4 g/dl (3.4-5.0); BILIRUBIN,TOTAL 0.8 mg/dL (0.2-1); BLOOD UREA NITROGEN 40.4 mg/dL (7-18); CALCIUM 8.5 mg/dL (8.5-10.1); CREATININE 3.6 mg/dL (0.55-1.3); MAGNESIUM 1.8 mg/dL (1.8-2.4); PHOSPHOROUS 3.8 mg/dL (2.5-4.9); POTASSIUM 4.5 mmol/L (3.5-5.1); TOT PROT 6.3 g/dl (6.4-8.2)
[2019-03-01] MEDS ORDERED: fentaNYL CITRATE 250 MCG/5 ML VIAL ONE (08:20)
--- NOTE | 2019-03-01 08:53 | PN ---
Teaching Attending Note Name of Resident: Lang Major ATTENDING PHYSICIAN STATEMENT I saw and evaluated the patient. I reviewed the resident's note and discussed the case with the resident. I agree with the resident's findings and plan as documented. SUBJECTIVE: Pt is a 58 y/o F w/ pmhx of L breast CA (s/p radiation, currently on oral chemotherapy), T1DM, HTN, CKD, diabetic retinopathy, asthma, RA, fibromyalgia, chronic low back pain, and ventral hernia presents to ED with diffuse abdominal pain and fatigue which began 3 days ago. No fever or chills. patient is going to OR. Vital Signs Temperature 98.6 F 03/01/19 06:16 Pulse Rate 96 H 03/01/19 06:16 Respiratory Rate 20 03/01/19 06:16 Blood Pressure 122/61 03/01/19 06:16 O2 Sat by Pulse Oximetry (%) 95 03/01/19 06:16 GENERAL: The patient is awake, alert, and fully oriented, in no acute distress. HEAD: Normal with no signs of trauma. EYES: PERRL, extraocular movements intact, sclera anicteric, conjunctiva clear. ENT: Ears normal, oropharynx clear without exudates, moist mucous membranes. NECK: Trachea midline, full range of motion, supple. LUNGS: Breath sounds equal, clear to auscultation bilaterally, no wheezes, no crackles, no accessory muscle use. HEART: Regular rate and rhythm, S1, S2 without murmur, rub or gallop. ABDOMEN: positive for diffuse abdominal pain , +BS, positive for voluntary guarding, no hepatosplenomegaly. EXTREMITIES: 2+ pulses, warm, well-perfused, no edema. NEUROLOGICAL: Cranial nerves II through XII grossly intact. Normal speech, gait not observed. PSYCH: Normal mood, normal affect. SKIN: Warm, dry, normal turgor, no rashes or lesions noted CBCD WBC 9.4 K/mm3 (4.0-10.0) 03/01/19 07:34 RBC 3.95 M/mm3 (3.60-5.2) 03/01/19 07:34 Hgb 10.6 GM/dL (10.7-15.3) L 03/01/19 07:34 Hct 32.5 % (32.4-45.2) 03/01/19 07:34 MCV 82.2 fl (80-96) 03/01/19 07:34 MCHC 32.5 g/dl (32.0-36.0) 03/01/19 07:34 RDW 14.9 % (11.6-15.6) 03/01/19 07:34 Plt Count 204 K/MM3 (134-434) 03/01/19 07:34 MPV 8.5 fl (7.5-11.1) 03/01/19 07:34 CMP Sodium 139 mmol/L (136-145) 03/01/19 07:34 Potassium 4.5 mmol/L (3.5-5.1) 03/01/19 07:34 Chloride 109 mmol/L (98-107) H 03/01/19 07:34 Carbon Dioxide 23 mmol/L (21-32) 03/01/19 07:34 Anion Gap 7 MMOL/L (8-16) L 03/01/19 07:34 BUN 40.4 mg/dL (7-18) H 03/01/19 07:34 Creatinine 3.6 mg/dL (0.55-1.3) H 03/01/19 07:34 Random Glucose 371 mg/dL (74-106) H 03/01/19 07:34 Calcium 8.5 mg/dL (8.5-10.1) 03/01/19 07:34 Total Bilirubin 0.8 mg/dL (0.2-1) 03/01/19 07:34 AST 31 U/L (15-37) 03/01/19 07:34 ALT 23 U/L (13-61) 03/01/19 07:34 Alkaline Phosphatase 87 U/L (45-117) 03/01/19 07:34 Total Protein 6.3 g/dl (6.4-8.2) L 03/01/19 07:34 Albumin 2.4 g/dl (3.4-5.0) L 03/01/19 07:34 CARDIAC ENZYMES Creatine Kinase 97 U/L (26-192) 03/01/19 01:52 Troponin I < 0.02 ng/ml (0.00-0.05) 03/01/19 01:52 Current Medications Generic Name Dose Route Start Last Admin Trade Name Freq PRN Reason Stop Dose Admin Acetaminophen 1,000 mg 03/01/19 06:30 Ofirmev Injection - IVPB Q6H PRN PAIN LEVEL 1-5 Sodium Chloride 1,000 mls @ 100 mls/hr 03/01/19 06:30 03/01/19 06:47 Normal Saline - IV 100 mls/hr ASDIR VINCE Administration Piperacillin Sod/Tazobactam 50 mls @ 100 mls/hr 03/01/19 06:30 03/01/19 06:47 Sod 3.375 gm/ Dextrose IVPB 100 mls/hr Q8H-IV VINCE Administration Protocol Piperacillin Sod/Tazobactam 50 mls @ 100 mls/hr 03/01/19 10:00 Sod 3.375 gm/ Dextrose IVPB 03/02/19 09:59 Q8H-IV VINCE Protocol Insulin Aspart 1 vial 03/01/19 07:00 Novolog Vial Sliding Scale - SQ ACHS VINCE Protocol Pantoprazole Sodium 40 mg 03/01/19 10:00 Protonix Iv IVPUSH DAILY VINCE Prochlorperazine Edisylate 10 mg 03/01/19 06:24 Compazine Injection - IVPB Q6H PRN NAUSEA AND/OR VOMITING Home Medications Medication Instructions Recorded Carvedilol 25 mg PO BID 10/22/14 Montelukast Na [Singulair -] 10 mg PO HS 10/22/14 Pregabalin [Lyrica -] 75 mg PO TID 10/22/14 Cholecalciferol (Vitamin D3) 50,000 unit PO WEEKLY 01/26/16 [Vitamin D3] Tamoxifen Citrate 20 mg PO DAILY 05/24/16 Albuterol 0.083% Nebulizer Page 1 amp NEB DAILY 09/18/17 [Ventolin 0.083% Nebulizer Soln -] Atorvastatin Ca [Lipitor] 20 mg PO HS 09/18/17 Budesonide/Formeterol Fumarate 1 inh PO BID 09/18/17 [SYMBICORT 160/4.5mcg -] Enalapril Maleate [Vasotec] 20 mg PO BID 09/18/17 Hydroxychloroquine Sulfate 400 mg PO BID 09/18/17 [Plaquenil] Mesalamine [Pentasa] 1,000 mg PO QID 09/18/17 Pantoprazole Sodium [Protonix] 40 mg PO DAILY 09/18/17 Folic Acid - 1 mg PO DAILY #30 tablet 09/26/17 Insulin Glargine,Hum.rec.anlog 28 unit SQ BID 11/26/18 [Lantus] Insulin Regular, Human [Humulin R 25 unit SQ BID 11/26/18 U-500 Kwikpen] Cephalexin [Keflex] 500 mg PO BID #10 capsule 11/28/18 EKG shows NSR with rate of 97 and prolonged QTc - will avoid zofran and protonix. ASSESSMENT/PLAN: Pt is a 58 y/o F with pmhx of L breast CA (s/p radiation, currently on oral chemotherapy), insulin dependent DM, HTN, CKD, diabetic retinopathy, asthma, RA , fibromyalgia, chronic low back pain, and ventral hernia presenting to ED complaining of worsening nausea, multiple episodes of vomiting, diffuse abdominal pain and fatigue which began 3 days ago. # SBO CT abdomen/pelvis show SBO likely due to incarcerated ventral hernia. sx dr. hemphill , NPo , Lr IVF # Sepsis on initial presentation : Tovar cx pending, ID onthe case, IV Zosyn # Lactic acidosis -IVF continue, repeat the levels # T2DM Uncontrolled: hold home diabetes drugs , bgms with SS coverage # Escar of the big toe: vascular evaluation and wound care # [place] over CKD with diabetic nephropathy. (Cr 3.5, baseline 2.7), nephro consulte # HTN: continue home meds NPO for surgery today # DVT prophylaxis - SCDs
[2019-03-01] MEDS ORDERED: BUPIVACAINE HCL/PF 0.5% (5 MG/ML) 30 ML VIAL IJ ONE ×2 (09:00→09:23)
[2019-03-01 09:01] LABS: INR 1.13 (0.83-1.09); PROTHROMBIN TIME (PATIENT) 13.4 SEC (9.7-13.0)
[2019-03-01 09:04] LABS: ACTIVATED PTT 27.1 SECONDS (25.2-36.5)
[2019-03-01] MEDS ORDERED: DEXAMETHASONE SOD PHOSPHATE 4 MG/1 ML VIAL ONE (09:23)
[2019-03-01] MEDS ORDERED: morphine CARPU-JECT 2 MG/1 ML DISP.SYRIN IVPUSH PRN (09:39)
[2019-03-01] MEDS ORDERED: LACTATED RINGERS SOLUTION 1,000 ML IV SCH (09:45)
[2019-03-01] MEDS ORDERED: NEOSTIGMINE METHYLSULFATE 0.5 MG/ML - 10 ML MDV ONE (09:57)
[2019-03-01] MEDS ORDERED: PANTOPRAZOLE SODIUM 40 MG VIAL IVPUSH SCH (10:00)
--- NOTE | 2019-03-01 10:01 | EKG ---
Test Reason : Blood Pressure : / mmHG Vent. Rate : 097 BPM Atrial Rate : 097 BPM P-R Int : 200 ms QRS Dur : 084 ms QT Int : 380 ms P-R-T Axes : 056 -14 085 degrees QTc Int : 482 ms NORMAL SINUS RHYTHM PROLONGED QT ABNORMAL ECG WHEN COMPARED WITH ECG OF 26-NOV-2018 04:53, SD INTERVAL HAS DECREASED T WAVE VARIATION Confirmed by PALOMO LUGO MD ([id number]) on 03/01/2019 10:01:46 AM Referred By: Confirmed By:PALOMO LUGO MD
--- NOTE | 2019-03-01 10:10 | OP ---
Operative Note - Note: Operative Date: 03/01/19 Pre-Operative Diagnosis: small bowel obstruction, incarcerated ventral hernia Operation: open repair of incarcerated ventral hernia with absorbable mesh, retrorectus block Findings: incarcerated ventral hernia containing viable small bowel, abdominal ascites, 3 cm defect Implants: 6x10cm ovatex mesh preperitoneal space Surgeon: Kvng Copeland Anesthesiologist/WEB MARKETING SPECIALIST: Rich Cochran Anesthesia: General Specimens Removed: hernia sac Estimated Blood Loss (mls): 20 Drains & Tubes with Location: jose subcutaneous tissue Operative Report Dictated: Yes
[2019-03-01] MEDS ORDERED: morphine CARPU-JECT 10 MG/1 ML DISP.SYRIN IVPB PRN (10:19)
[2019-03-01] MEDS ORDERED: ONDANSETRON 4 MG/2 ML VIAL IVPUSH PRN (10:19)
[2019-03-01] MEDS ORDERED: oxyCODONE HCL 5 MG TABLET PO PRN (10:19)
--- NOTE | 2019-03-01 10:23 | PN ---
Progress Note (short form) - Note Progress Note: surgery pt seen and examined this morning. full consult and operative report dictated. s/p incarcerated ventral hernia repair with absorbable mesh and reduction of sbo. keep npo with ngt. 3 doses of zosyn prophylaxis for bacterial translocation. poss removal ngt tomorrow, liquids fri, and home . jose drain will stay for minimum 1 week and likely be removed in office.
[2019-03-01] MEDS ORDERED: ESMOLOL HCL ONE (10:59)
[2019-03-01] MEDS ORDERED: MIDAZOLAM HCL 2 MG/2 ML SINGLE DOSE VIAL ONE (11:01)
[2019-03-01 11:14] LABS: ARTERIAL BLD GAS O2 SATURATION 97.3 % (95-98); ARTERIAL BLOOD GAS BASE EXCESS -7.4 meq/l (-2-2); ARTERIAL BLOOD GAS PO2 140 mmHg (80-100)
[2019-03-01] MEDS ORDERED: ALBUTEROL SO4 0.083% IH SOL 2.5 MG/3 ML VIAL.NEB. NEB ONE ×3 (11:16→14:24)
[2019-03-01 11:17] LABS: ALLENS TEST POSITIVE
--- NOTE | 2019-03-01 11:39 | OP ---
DATE OF OPERATION: 03/01/2019 PREOPERATIVE DIAGNOSIS: Incarcerated ventral hernia, small-bowel obstruction. POSTOPERATIVE DIAGNOSIS: Incarcerated ventral hernia, small-bowel obstruction. PROCEDURE: Open repair of incarcerated ventral hernia with absorbable mesh and retrorectus block. SURGEON: Kvng Copeland DO PARTS DELIVERY DRIVER: None. ANESTHESIOLOGIST: Rich Cochran MD SPECIMENS: Hernia sac. INTRAOPERATIVE FINDINGS: An incarcerated ventral hernia containing viable small bowel with a 3-cm defect. BLOOD LOSS: Approximately 20 mL. DRAINS: Riley-Long drain subcutaneous tissue. DISPOSITION: Recovery room in stable condition. BRIEF HISTORY: This is a 58-year-old female with multiple medical problems on immunosuppressive therapy for rheumatoid arthritis who presents with a 3-day history of abdominal pain, nausea, and vomiting. She had a CAT scan consistent with a small bowel obstruction from an incarcerated ventral hernia. She was admitted to the hospital, given Zosyn antibiotic for possible translocation of bacteria. Nasogastric tube was placed, and she presents now for surgery. DESCRIPTION OF PROCEDURE: The patient was placed in a supine position. After general anesthesia was initiated, the abdomen was prepped and draped in sterile fashion. A vertical incision was made approximately 6 inches in length. The patient has significant fat and pannus, which had to be dealt with for exposure. A hernia sac was easily identified. It was large, approximately the size of a tennis ball. It was dissected down to the neck where there was a defect approximately 3 cm in size. The hernia sac was dissected off of the neck. The defect had to be slightly expanded, which would enable eventual reduction of the hernia. The hernia sac was opened. Within it included omentum and a portion of bowel that did not have any compromise. It was congested. There was ascites within the hernia sac. The bowel and the omentum were reduced into the abdominal cavity. The hernia sac was transected, sent to Pathology, marked as specimen. Upon inspecting the abdominal cavity through the small defect, there was noted to be some ascites, which was suctioned. However, there was no significant exposure through this small area, and this view was limited. At this point, the defect caused from resection of the hernia was closed with a running V-Lock suture. Preperitoneal plane was developed using blunt, sharp, and electrocautery dissection creating a space. At this point, a 6-cm x 10-cm OviTex absorbable mesh was placed into the preperitoneal space. This was secured with AbsorbaTack suture. Next, a retrorectus block was done with 20 mL of 0.25% Marcaine and 4 mg of Decadron. At this point, the fascia was closed with multiple, interrupted 0 Prolene sutures after irrigation had been done. The subcutaneous tissues were then irrigated. A Riley-Long drain was placed into subcutaneous tissue to prevent expected seroma formation. The skin was closed with a combination of Biosyn sutures, ivis, and Dermabond. The Riley-Long drain was brought out through a skin incision in the right lower quadrant and secured with a silk drain stitch. An abdominal binder was placed protectively at the end of the operation. Overall, the patient tolerated the procedure well. There were no complications. Nasogastric tube, which was in before the operation started, was left in at the end, and no Bee catheter was used. Patient would remain on 2 prophylactic doses of Zosyn antibiotic. DO KAREN QUIÑONES/[id number] MTDD
[2019-03-01] MEDS ORDERED: INSULIN (NOVOLOG) ASPART 100 UNITS/ML 10ML VIAL ONE ×2 (11:47→13:24)
[2019-03-01] MEDS ORDERED: INSULIN REGULAR HUMAN 100 UNITS/ML *VIAL SQ ONE ×2 (11:55→13:27)
[2019-03-01 12:18] LABS: ALLENS TEST POSITIVE; ARTERIAL BLD GAS O2 SATURATION 99.2 % (95-98); ARTERIAL BLOOD GAS BASE EXCESS -4.5 meq/l (-2-2); ARTERIAL BLOOD GAS PO2 177 mmHg (80-100)
[2019-03-01] MEDS ORDERED: fentaNYL CITRATE/PF 1,000 MCG/20 ML AMPUL IVPUSH ONE (13:29)
[2019-03-01 13:42] LABS: ARTERIAL BLD GAS O2 SATURATION 99.6 % (95-98); ARTERIAL BLOOD GAS BASE EXCESS -4.8 meq/l (-2-2); ARTERIAL BLOOD GAS PCO2 40.1 mmHg (35-45); ARTERIAL BLOOD GAS PO2 249 mmHg (80-100); ARTERIAL BLOOD GAS pH 7.32 (7.35-7.45)
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
[2019-03-01] MEDS ORDERED: PIPERACILLIN/TAZOBACTAM 2.25 GM VIAL IVPB ONE ×2 (14:34→17:01)
--- NOTE | 2019-03-01 14:56 | PN ---
Physical Exam: SUBJECTIVE: Patient seen and examined 58 y/o F, pmh of DM on insulin, HTN, CKD, Asthma, RA, Left breast cancer s/p radiation, fibromyalgia, chronic low back pain, ventral hernia, presents with abdominal pain associated with distension, n/v of 3 day duration admitted for SBO 2/2 to ventral hernia. Currently, pt is s/p surgery, stable, afebrile, asymptomatic without any c/o or issues. Pt is recovering from anesthesia but otherwise stable. PCP: Dr. Rogel OBJECTIVE: Vital Signs Last Vital Signs Temp Pulse Resp BP Pulse Ox 98 F 97 H 18 114/69 97 03/01/19 11:09 03/01/19 14:25 03/01/19 14:25 03/01/19 14:25 03/01/19 14:25 PE GENERAL: Awake, alert,. Recovering from anesthesia. NGT in place and draining EYES: Pupils equal, round and reactive to light, extraocular movements intact, sclera anicteric EARS, NOSE, THROAT: oropharynx clear without exudates. Dry mucous membranes. NECK: Normal range of motion, supple without lymphadenopathy LUNGS: Breath sounds equal, clear to auscultation bilaterally. No wheezes, and no crackles. HEART: Regular rate and rhythm, normal S1 and S2 without murmur. ABDOMEN: Soft, s/p surgery. Salazar appear intact, w/o drainage, erythema, purulence. Abdominal binder present. JOSE drain appears intact. Serosanginous jose drainage. UPPER EXTREMITIES: 2+ pulses, warm, well-perfused. No cyanosis. No peripheral edema. LOWER EXTREMITIES: 2+ pulses, warm, well-perfused. No calf tenderness. Black dry necrotic ulcer on side of R first toe. Non-tender. NEUROLOGICAL: Cranial nerves II-XII intact. SKIN: Warm, dry, Laboratory Results - last 24 hr CBC,CMP WBC 9.4 K/mm3 (4.0-10.0) 03/01/19 07:34 RBC 3.95 M/mm3 (3.60-5.2) 03/01/19 07:34 Hgb 10.6 GM/dL (10.7-15.3) L 03/01/19 07:34 Hct 32.5 % (32.4-45.2) 03/01/19 07:34 MCV 82.2 fl (80-96) 03/01/19 07:34 MCH 26.7 pg (25.7-33.7) 03/01/19 07:34 MCHC 32.5 g/dl (32.0-36.0) 03/01/19 07:34 RDW 14.9 % (11.6-15.6) 03/01/19 07:34 Plt Count 204 K/MM3 (134-434) 03/01/19 07:34 MPV 8.5 fl (7.5-11.1) 03/01/19 07:34 Absolute Neuts (auto) 7.2 K/mm3 (1.5-8.0) 03/01/19 07:34 Neutrophils % 76.5 % (42.8-82.8) 03/01/19 07:34 Lymphocytes % 12.9 % (8-40) D 03/01/19 07:34 Monocytes % 9.5 % (3.8-10.2) 03/01/19 07:34 Eosinophils % 0.4 % (0-4.5) D 03/01/19 07:34 Basophils % 0.7 % (0-2.0) 03/01/19 07:34 Nucleated RBC % 0 % (0-0) 03/01/19 07:34 Sodium 139 mmol/L (136-145) 03/01/19 07:34 Potassium 4.5 mmol/L (3.5-5.1) 03/01/19 07:34 Chloride 109 mmol/L (98-107) H 03/01/19 07:34 Carbon Dioxide 23 mmol/L (21-32) 03/01/19 07:34 Anion Gap 7 MMOL/L (8-16) L 03/01/19 07:34 BUN 40.4 mg/dL (7-18) H 03/01/19 07:34 Creatinine 3.6 mg/dL (0.55-1.3) H 03/01/19 07:34 Est GFR (CKD-EPI)AfAm 15.39 03/01/19 07:34 Est GFR (CKD-EPI)NonAf 13.28 03/01/19 07:34 POC Glucometer 324 UNITS (80-120) 03/01/19 14:31 Random Glucose 371 mg/dL (74-106) H 03/01/19 07:34 Hemoglobin A1c % 10.5 % (4.2-6.3) H 03/01/19 07:34 Lactic Acid 2.0 mmol/L (0.4-2.0) 03/01/19 07:34 Calcium 8.5 mg/dL (8.5-10.1) 03/01/19 07:34 Phosphorus 3.8 mg/dL (2.5-4.9) 03/01/19 07:34 Magnesium 1.8 mg/dL (1.8-2.4) 03/01/19 07:34 Total Bilirubin 0.8 mg/dL (0.2-1) 03/01/19 07:34 AST 31 U/L (15-37) 03/01/19 07:34 ALT 23 U/L (13-61) 03/01/19 07:34 Alkaline Phosphatase 87 U/L (45-117) 03/01/19 07:34 Creatine Kinase 97 U/L (26-192) 03/01/19 01:52 Troponin I < 0.02 ng/ml (0.00-0.05) 03/01/19 01:52 Total Protein 6.3 g/dl (6.4-8.2) L 03/01/19 07:34 Albumin 2.4 g/dl (3.4-5.0) L 03/01/19 07:34 Lipase 89 U/L (73-393) 03/01/19 01:52 Active Medications Current Medications Acetaminophen (Ofirmev Injection -) 1,000 mg IVPB Q6H PRN PRN Reason: PAIN LEVEL 1-5 Enoxaparin Sodium (Lovenox -) 40 mg SQ DAILY [facility] Fentanyl Citrate (Fentanyl 1,000 Mcg/20 Ml Ampul) 250 mcg IVPUSH ONCE ONE Stop: 03/01/19 13:30 Sodium Chloride (Normal Saline -) 1,000 mls @ 100 mls/hr IV ASDIR VINCE Piperacillin Sod/Tazobactam (Sod 2.25 gm/ Dextrose) 50 mls @ 100 mls/hr IVPB Q8H-IV VINCE; Protocol Insulin Aspart (Novolog Vial Sliding Scale -) 1 vial SQ ACHS VINCE; Protocol Morphine Sulfate (Morphine Injection -) 8 mg IVPB Q3H PRN PRN Reason: PAIN LEVEL 7 - 10 Ondansetron HCl (Zofran Injection) 4 mg IVPUSH Q6H PRN PRN Reason: NAUSEA Oxycodone HCl (Roxicodone -) 7.5 mg PO Q4H PRN PRN Reason: PAIN LEVEL 4 - 6 Pantoprazole Sodium (Protonix Iv) 40 mg IVPUSH DAILY VINCE Prochlorperazine Edisylate (Compazine Injection -) 10 mg IVPB Q6H PRN PRN Reason: NAUSEA AND/OR VOMITING Home Medications Medication Instructions Recorded Carvedilol 25 mg PO BID 10/22/14 Montelukast Na [Singulair -] 10 mg PO HS 10/22/14 Pregabalin [Lyrica -] 75 mg PO TID 10/22/14 Cholecalciferol (Vitamin D3) 50,000 unit PO WEEKLY 01/26/16 [Vitamin D3] Tamoxifen Citrate 20 mg PO DAILY 05/24/16 Albuterol 0.083% Nebulizer Page 1 amp NEB DAILY 09/18/17 [Ventolin 0.083% Nebulizer Soln -] Atorvastatin Ca [Lipitor] 20 mg PO HS 09/18/17 Budesonide/Formeterol Fumarate 1 inh PO BID 09/18/17 [SYMBICORT 160/4.5mcg -] Enalapril Maleate [Vasotec] 20 mg PO BID 09/18/17 Hydroxychloroquine Sulfate 400 mg PO BID 09/18/17 [Plaquenil] Mesalamine [Pentasa] 1,000 mg PO QID 09/18/17 Pantoprazole Sodium [Protonix] 40 mg PO DAILY 09/18/17 Folic Acid - 1 mg PO DAILY #30 tablet 09/26/17 Insulin Glargine,Hum.rec.anlog 28 unit SQ BID 11/26/18 [Lantus] Insulin Regular, Human [Humulin R 25 unit SQ BID 11/26/18 U-500 Kwikpen] Cephalexin [Keflex] 500 mg PO BID #10 capsule 11/28/18 ASSESSMENT/PLAN: 58 y/o F, pmh of DM on insulin, HTN, CKD, Asthma, RA, Left breast cancer s/p radiation, fibromyalgia, chronic low back pain, ventral hernia, presents with abdominal pain associated with distension, n/v of 3 day duration admitted for SBO 2/2 to ventral hernia #SBO 2/2 to ventral hernia s/p surgery CT a/p- evident for SBO likely from an incarcerated ventral hernia Surgery, Dr. Copeland- s/p incarcerated ventral hernia repair with absorbable mesh and reduction of sbo. EKG- NSR with rate of 97 and prolonged QTc 482 Avoid zofran and protonix. Pain control As per Surgery s/p surgery Zosyn- 3 doses for ppx Keep NPO Keep NGT today- possible removal of NGT tomorrow Liquid diet Friday Consider Discharge home JOSE drain will likely remain for 1 week and removed outpt at the office #Leukocytosis likely 2/2 stress vs infection source unknown, endorses Fever and chills consider BCx CXR- large heart, unfolded aorta, congestive changes, possible left infiltrates UA positive for bacteria 140, LE- negative Started on Zosyn 2.25 Q8H- renal adjusted ID consulted Lactic acid- came down to 2.0 continue IV NS #Hypoalbuminemia- monitor albumin adequate diet #DM HbA1c- 10.5 BGM ACHS ISS #CKD/ [place] likely due to Diabetic nephropathy Nephro consult avoid nephrotoxic agents such as NSAIDS, aminoglycosides, contrast dyes Cre 3.6 today #HTN cont home meds #FEN NS at 100 # DVT PPx SCDs b/l Dispo- PACU now, s/p surgery, control pain, f/u nephro tomorrow, cont zosyn Visit type - Emergency Visit Emergency Visit: Yes ED Registration Date: 03/01/19 Care time: The patient presented to the Emergency Department on the above date and was hospitalized for further evaluation of their emergent condition. - New Patient This patient is new to me today: Yes Date on this admission: 03/04/19 - Critical Care Critical Care patient: No - Discharge Referral Referred to [facility] Med [facility] No ATTENDING PHYSICIAN STATEMENT I saw and evaluated the patient. I reviewed the resident's note and discussed the case with the resident. I agree with the resident's findings and plan as documented. SUBJECTIVE: OBJECTIVE: ASSESSMENT AND PLAN:
[2019-03-01] MEDS: SODIUM CHLORIDE 1,000 ML IV SCH (15:00)
--- NOTE | 2019-03-01 15:38 | CONS ---
DATE OF CONSULTATION: 03/01/2019 REASON FOR CONSULTATION: Incarcerated ventral hernia, small-bowel obstruction. This is an emergency room consultation requested by emergency room physician. BRIEF HISTORY: This is a 58-year-old female with multiple medical problems, including morbid obesity, rheumatoid arthritis, COPD, chronic kidney disease, diabetes, states for many years has had a ventral hernia which she has elected not to repair. She states for the past 3 days that she has had abdominal pain and it became worse with nausea and vomiting. Because of this, she came to the emergency room. There, she had a CAT scan of her abdomen and pelvis, which showed an incarcerated ventral hernia at the midportion of her abdomen with a loop of small bowel as the cause of a small-bowel obstruction. She had a nasogastric tube placed. She was given hydration. She was given Zosyn antibiotic and request was made for surgical consultation. Past medical history is as in HPI. In addition, she has fibromyalgia and low back pain. Home medications have been reviewed. She is not on blood thinner. She is on carvedilol, Singulair, Lyrica, tamoxifen, albuterol, and insulin. Her past surgical history includes mastectomy for breast cancer, a section, a hysterectomy done through a Pfannenstiel incision. She does not know if she has an appendix. Family history is noncontributory. She has allergies to SHELLFISH. REVIEW OF SYSTEMS: General: Denies fatigue or malaise. Cardiac: Denies chest pain or palpitations. Respiratory: No shortness of breath or wheeze. Gastrointestinal: As in HPI. Denies diarrhea, denies blood in her stool, denies blood in her vomiting. Genitourinary: Denies dysuria. Musculoskeletal: Admits to back pain. Psychiatric: Admits to anxiety. PHYSICAL EXAMINATION: General: This is a morbidly obese 58-year-old female in no distress. Vital Signs: She is currently afebrile. Her vital signs are stable. HEENT: Her head is normocephalic. Sclerae are anicteric. Neck: Supple. Chest: Clear. Abdomen: Obese, it is soft, it is mildly distended. Exam is limited by obesity. She has a hernia at the central portion of her abdomen, which is incarcerated. There are no overlying skin changes. The size of the hernia is difficult to appreciate based on her obesity. Extremities: Her extremities have edema. On review of her laboratory, her white blood cell count is normal at 9.4. It was 13.9 on arrival. Her INR is unremarkable. Her chemistries show an elevated glucose of 371. Her creatinine is elevated at 3.6. It was 3.5 on admission. Baseline appears to be 2.0 in September, but in November it was also noted to be 3.2, so it is unclear if this is an acute exacerbation or her baseline. Review of her imaging is as in HPI. There appears to be a small amount of ascites with a loop of bowel and a central hernia that is incarcerated. The official report is unavailable. ASSESSMENT: This is a 58-year-old female, presents with 3 days of abdominal pain, no nausea and vomiting. She has a CAT scan which shows an incarcerated ventral hernia with small-bowel obstruction. Despite ice packs, Trendelenburg, and vigorous attempt at reduction by the ED physician, she has an incarcerated hernia that cannot be reduced. Her lactic acid was noted to be mildly elevated. At this point, the patient needs urgent surgery. Will proceed with an operative repair. I will consider an absorbable mesh, depending on the findings, but most likely will not use any mesh at all, as patient will be at risk of contamination from the bowel and translocation of bacteria leading to mesh infection. Obviously, in someone who is obese, with rheumatoid arthritis on immunosuppressive type medications, she will be at high risk of recurrence of this hernia. I would estimate that she has close to a 50% recurrence rate. At this point, will do the emergent primary repair and possibly may reinforce with a dissolvable mesh. Risks and benefits of surgery have been explained to patient in detail. These are including but not limited to the possibility of injury to underlying bowel, the possibility that she may require bowel resection if she has compromised bowel within the hernia, the possibility of mesh infection, the possibility of recurrence of the hernia, possibility of chronic pain, possibility of blood loss requiring blood transfusion, possibility of future obstruction, plus a multitude of medical risks including but not limited to cardiac, neurologic, pulmonary, and vascular complications, even . The patient understands these risks and is agreeable to surgery. DO KAREN QUIÑONES/[id number]
[2019-03-01] MEDS ORDERED: DEXTROSE 5%-WATER - 50 ML IVPB ONE (17:01)
--- NOTE | 2019-03-01 17:17 | PN ---
Physical Exam: SUBJECTIVE: Patient seen and examined by the bedside. NG tube in place, appears to be drowsy. OBJECTIVE: Vital Signs Period Temp Pulse Resp BP Sys/Ronquillo Pulse Ox Last 24 Hr 97.8 F-98.6 F 74-112 14-23 110-147/61-87 95-100 GENERAL: Drowsy, but AOx3. NGT in place and draining EYES: ABDULLAHI, EOMI EARS, NOSE, THROAT: oropharynx clear without exudates, dry mucous membranes. LUNGS: Diminished breath sounds B/L HEART: RRR, S1 and S2 without murmur. ABDOMEN: Soft, umbilical tenderness, ivis in midline intact, no drainage or erythema. ISHAAN drain appears intact with serosanginous drainage. UPPER EXTREMITIES: 2+ pulses, warm, well-perfused. No cyanosis. No peripheral edema. LOWER EXTREMITIES: 2+ pulses, dry necrotic 2nd degree ulcer on lateral aspect of R first toe NEUROLOGICAL: Unable to assess motor function, sensations intact B/L Laboratory Results - last 24 hr 03/01/19 03/01/19 03/01/19 01:49 01:52 01:52 WBC RBC Hgb Hct MCV MCH MCHC RDW Plt Count MPV Absolute Neuts (auto) Neutrophils % Lymphocytes % Monocytes % Eosinophils % Basophils % Nucleated RBC % PT with INR INR PTT (Actin FS) 30.1 Anticoagulation Therapy Puncture Site ABG pH ABG pCO2 at Pt Temp ABG pO2 at Pt Temp ABG HCO3 ABG O2 Sat (Measured) ABG O2 Content ABG Base Excess Enrike Test O2 Delivery Device Oxygen Flow Rate Vent Mode Vent Rate Mechanical Rate Pressure Support Vent Sodium Potassium Chloride Carbon Dioxide Anion Gap BUN Creatinine Est GFR (CKD-EPI)AfAm Est GFR (CKD-EPI)NonAf POC Glucometer 400 Random Glucose Hemoglobin A1c % Lactic Acid Calcium Phosphorus Magnesium Total Bilirubin AST ALT Alkaline Phosphatase Creatine Kinase 97 Troponin I < 0.02 Total Protein Albumin Lipase Urine Color Urine Appearance Urine pH Ur Specific [place] Urine Protein Urine Glucose (UA) Urine Ketones Urine Blood Urine Nitrite Urine Bilirubin Urine Urobilinogen Ur Leukocyte Esterase Urine WBC (Auto) Urine RBC (Auto) Urine Casts (Auto) U Epithel Cells (Auto) Urine Bacteria (Auto) Blood Type Antibody Screen 03/01/19 03/01/19 03/01/19 01:52 01:52 01:52 WBC 13.9 H RBC 4.31 Hgb 11.4 Hct 35.7 D MCV 82.8 MCH 26.5 MCHC 32.0 RDW 14.9 Plt Count 238 D MPV 9.0 Absolute Neuts (auto) 11.8 H Neutrophils % 85.3 H D Lymphocytes % 7.5 L D Monocytes % 6.4 Eosinophils % 0.1 D Basophils % 0.7 Nucleated RBC % 0 PT with INR INR PTT (Actin FS) Anticoagulation Therapy Puncture Site ABG pH ABG pCO2 at Pt Temp ABG pO2 at Pt Temp ABG HCO3 ABG O2 Sat (Measured) ABG O2 Content ABG Base Excess Enrike Test O2 Delivery Device Oxygen Flow Rate Vent Mode Vent Rate Mechanical Rate Pressure Support Vent Sodium 138 Potassium 5.1 Chloride 104 Carbon Dioxide 27 Anion Gap 7 L BUN 38.7 H Creatinine 3.5 H Est GFR (CKD-EPI)AfAm 15.93 Est GFR (CKD-EPI)NonAf 13.74 POC Glucometer Random Glucose 409 H* Hemoglobin A1c % Lactic Acid 3.3 H* Calcium 9.2 Phosphorus Magnesium Total Bilirubin 0.5 AST 24 ALT 21 Alkaline Phosphatase 89 Creatine Kinase Troponin I Total Protein 7.2 Albumin 2.8 L Lipase Urine Color Urine Appearance Urine pH Ur Specific [place] Urine Protein Urine Glucose (UA) Urine Ketones Urine Blood Urine Nitrite Urine Bilirubin Urine Urobilinogen Ur Leukocyte Esterase Urine WBC (Auto) Urine RBC (Auto) Urine Casts (Auto) U Epithel Cells (Auto) Urine Bacteria (Auto) Blood Type Antibody Screen 03/01/19 03/01/19 03/01/19 01:52 01:52 01:52 WBC RBC Hgb Hct MCV MCH MCHC RDW Plt Count MPV Absolute Neuts (auto) Neutrophils % Lymphocytes % Monocytes % Eosinophils % Basophils % Nucleated RBC % PT with INR 13.00 INR 1.10 H PTT (Actin FS) Anticoagulation Therapy Puncture Site ABG pH ABG pCO2 at Pt Temp ABG pO2 at Pt Temp ABG HCO3 ABG O2 Sat (Measured) ABG O2 Content ABG Base Excess Enrike Test O2 Delivery Device Oxygen Flow Rate Vent Mode Vent Rate Mechanical Rate Pressure Support Vent Sodium Potassium Chloride Carbon Dioxide Anion Gap BUN Creatinine Est GFR (CKD-EPI)AfAm Est GFR (CKD-EPI)NonAf POC Glucometer Random Glucose Hemoglobin A1c % Lactic Acid Calcium Phosphorus 4.1 Magnesium 1.9 Total Bilirubin AST ALT Alkaline Phosphatase Creatine Kinase Troponin I Total Protein Albumin Lipase 89 Urine Color Urine Appearance Urine pH Ur Specific [place] Urine Protein Urine Glucose (UA) Urine Ketones Urine Blood Urine Nitrite Urine Bilirubin Urine Urobilinogen Ur Leukocyte Esterase Urine WBC (Auto) Urine RBC (Auto) Urine Casts (Auto) U Epithel Cells (Auto) Urine Bacteria (Auto) Blood Type A POSITIVE Antibody Screen Negative 03/01/19 03/01/19 03/01/19 01:52 07:34 07:34 WBC 9.4 RBC 3.95 Hgb 10.6 L Hct 32.5 MCV 82.2 MCH 26.7 MCHC 32.5 RDW 14.9 Plt Count 204 MPV 8.5 Absolute Neuts (auto) 7.2 Neutrophils % 76.5 Lymphocytes % 12.9 D Monocytes % 9.5 Eosinophils % 0.4 D Basophils % 0.7 Nucleated RBC % 0 PT with INR 13.40 H INR 1.13 H PTT (Actin FS) 27.1 Anticoagulation Therapy Puncture Site ABG pH ABG pCO2 at Pt Temp ABG pO2 at Pt Temp ABG HCO3 ABG O2 Sat (Measured) ABG O2 Content ABG Base Excess Enrike Test O2 Delivery Device Oxygen Flow Rate Vent Mode Vent Rate Mechanical Rate Pressure Support Vent Sodium Potassium Chloride Carbon Dioxide Anion Gap BUN Creatinine Est GFR (CKD-EPI)AfAm Est GFR (CKD-EPI)NonAf POC Glucometer Random Glucose Hemoglobin A1c % Lactic Acid Calcium Phosphorus Magnesium Total Bilirubin AST ALT Alkaline Phosphatase Creatine Kinase Troponin I Total Protein Albumin Lipase Urine Color Yellow Urine Appearance Clear Urine pH 6.5 D Ur Specific [place] 1.017 Urine Protein 3+ H Urine Glucose (UA) 3+ H Urine Ketones Negative Urine Blood 1+ H Urine Nitrite Negative Urine Bilirubin Negative Urine Urobilinogen 0.2 Ur Leukocyte Esterase Negative Urine WBC (Auto) 8 Urine RBC (Auto) 3 Urine Casts (Auto) 3 U Epithel Cells (Auto) 4.1 Urine Bacteria (Auto) 140.0 Blood Type Antibody Screen 03/01/19 03/01/19 03/01/19 07:34 07:34 07:34 WBC RBC Hgb Hct MCV MCH MCHC RDW Plt Count MPV Absolute Neuts (auto) Neutrophils % Lymphocytes % Monocytes % Eosinophils % Basophils % Nucleated RBC % PT with INR INR PTT (Actin FS) Anticoagulation Therapy Puncture Site ABG pH ABG pCO2 at Pt Temp ABG pO2 at Pt Temp ABG HCO3 ABG O2 Sat (Measured) ABG O2 Content ABG Base Excess Enrike Test O2 Delivery Device Oxygen Flow Rate Vent Mode Vent Rate Mechanical Rate Pressure Support Vent Sodium 139 Potassium 4.5 Chloride 109 H Carbon Dioxide 23 Anion Gap 7 L BUN 40.4 H Creatinine 3.6 H Est GFR (CKD-EPI)AfAm 15.39 Est GFR (CKD-EPI)NonAf 13.28 POC Glucometer Random Glucose 371 H Hemoglobin A1c % 10.5 H Lactic Acid 2.0 Calcium 8.5 Phosphorus 3.8 Magnesium 1.8 Total Bilirubin 0.8 AST 31 ALT 23 Alkaline Phosphatase 87 Creatine Kinase Troponin I Total Protein 6.3 L Albumin 2.4 L Lipase Urine Color Urine Appearance Urine pH Ur Specific [place] Urine Protein Urine Glucose (UA) Urine Ketones Urine Blood Urine Nitrite Urine Bilirubin Urine Urobilinogen Ur Leukocyte Esterase Urine WBC (Auto) Urine RBC (Auto) Urine Casts (Auto) U Epithel Cells (Auto) Urine Bacteria (Auto) Blood Type Antibody Screen 03/01/19 03/01/19 03/01/19 11:00 11:32 11:55 WBC RBC Hgb Hct MCV MCH MCHC RDW Plt Count MPV Absolute Neuts (auto) Neutrophils % Lymphocytes % Monocytes % Eosinophils % Basophils % Nucleated RBC % PT with INR INR PTT (Actin FS) Anticoagulation Therapy No Result Required. No Result Required. Puncture Site Right radial Right radial ABG pH 7.10 L* 7.35 ABG pCO2 at Pt Temp 79.0 H* 37.7 ABG pO2 at Pt Temp 140 H 177 H ABG HCO3 23.2 20.1 L ABG O2 Sat (Measured) 97.3 99.2 H ABG O2 Content 14.4 14.3 ABG Base Excess -7.4 L -4.5 L Enrike Test Positive Positive O2 Delivery Device No Result Required. No Result Required. Oxygen Flow Rate Yes 100 Vent Mode No Result Required. No Result Required. Vent Rate No Result Required. No Result Required. Mechanical Rate No Result Required. No Result Required. Pressure Support Vent No Result Required. No Result Required. Sodium Potassium Chloride Carbon Dioxide Anion Gap BUN Creatinine Est GFR (CKD-EPI)AfAm Est GFR (CKD-EPI)NonAf POC Glucometer 391 Random Glucose Hemoglobin A1c % Lactic Acid Calcium Phosphorus Magnesium Total Bilirubin AST ALT Alkaline Phosphatase Creatine Kinase Troponin I Total Protein Albumin Lipase Urine Color Urine Appearance Urine pH Ur Specific [place] Urine Protein Urine Glucose (UA) Urine Ketones Urine Blood Urine Nitrite Urine Bilirubin Urine Urobilinogen Ur Leukocyte Esterase Urine WBC (Auto) Urine RBC (Auto) Urine Casts (Auto) U Epithel Cells (Auto) Urine Bacteria (Auto) Blood Type Antibody Screen 03/01/19 03/01/19 03/01/19 12:57 13:30 14:31 WBC RBC Hgb Hct MCV MCH MCHC RDW Plt Count MPV Absolute Neuts (auto) Neutrophils % Lymphocytes % Monocytes % Eosinophils % Basophils % Nucleated RBC % PT with INR INR PTT (Actin FS) Anticoagulation Therapy No Result Required. Puncture Site ABG pH 7.32 L ABG pCO2 at Pt Temp 40.1 ABG pO2 at Pt Temp 249 H ABG HCO3 20.3 L ABG O2 Sat (Measured) 99.6 H ABG O2 Content 14.2 ABG Base Excess -4.8 L Enrike Test Not applicable O2 Delivery Device No Result Required. Oxygen Flow Rate Yes Vent Mode No Result Required. Vent Rate No Result Required. Mechanical Rate No Result Required. Pressure Support Vent No Result Required. Sodium Potassium Chloride Carbon Dioxide Anion Gap BUN Creatinine Est GFR (CKD-EPI)AfAm Est GFR (CKD-EPI)NonAf POC Glucometer 366 324 Random Glucose Hemoglobin A1c % Lactic Acid Calcium Phosphorus Magnesium Total Bilirubin AST ALT Alkaline Phosphatase Creatine Kinase Troponin I Total Protein Albumin Lipase Urine Color Urine Appearance Urine pH Ur Specific [place] Urine Protein Urine Glucose (UA) Urine Ketones Urine Blood Urine Nitrite Urine Bilirubin Urine Urobilinogen Ur Leukocyte Esterase Urine WBC (Auto) Urine RBC (Auto) Urine Casts (Auto) U Epithel Cells (Auto) Urine Bacteria (Auto) Blood Type Antibody Screen Active Medications Generic Name Dose Route Start Last Admin Trade Name Archieq PRN Reason Stop Dose Admin Acetaminophen 1,000 mg 03/01/19 11:33 Ofirmev Injection - IVPB Q6H PRN PAIN LEVEL 1-5 Albuterol Sulfate 1 amp 03/02/19 10:00 Ventolin 0.083% Nebulizer Soln - NEB DAILY [facility] Budesonide/Formoterol Fumarate 1 puff 03/01/19 22:00 Symbicort 160/4.5mcg - IH BID VINCE Enoxaparin Sodium 40 mg 03/02/19 10:00 Lovenox - SQ DAILY [facility] Fentanyl Citrate 250 mcg 03/01/19 13:29 Fentanyl 1,000 Mcg/20 Ml Ampul IVPUSH 03/01/19 13:30 ONCE ONE Sodium Chloride 1,000 mls @ 100 mls/hr 03/01/19 11:33 Normal Saline - IV ASDIR VINCE Piperacillin Sod/Tazobactam 50 mls @ 100 mls/hr 03/01/19 14:15 Sod 2.25 gm/ Dextrose IVPB Q8H-IV VINCE Protocol Insulin Aspart 1 vial 03/01/19 16:30 Novolog Vial Sliding Scale - SQ ACHS [facility] Protocol Morphine Sulfate 8 mg 03/01/19 10:19 Morphine Injection - IVPB Q3H PRN PAIN LEVEL 7 - 10 Ondansetron HCl 4 mg 03/01/19 10:19 Zofran Injection IVPUSH Q6H PRN NAUSEA Oxycodone HCl 7.5 mg 03/01/19 10:19 Roxicodone - PO Q4H PRN PAIN LEVEL 4 - 6 Pantoprazole Sodium 40 mg 03/02/19 10:00 Protonix Iv IVPUSH DAILY [facility] Prochlorperazine Edisylate 10 mg 03/01/19 11:33 Compazine Injection - IVPB Q6H PRN NAUSEA AND/OR VOMITING ASSESSMENT/PLAN: 58 YO F with PMH of DM,, HTN, CKD, Asthma, RA, Left breast CA (s/p radiation), fibromyalgia, chronic low back pain, ventral hernia, presented to the ER with abdominal pain, nausea, and vomiting for 3 days and was admitted for SBO 2/2 to ventral hernia on 03/01. Is currently POD#0 after incarcerated ventral hernia repair with absorbable mesh. #Neuro - Fentanyl 250mcg administered in PACU, patient AOx3 and drowsy #GI - SBO 2/2 to ventral hernia - POD#0 (Dr. Copeland): incarcerated ventral hernia repair with absorbable mesh and reduction of sbo. - Possible NGT removal tomorrow as per surgery - ISHAAN drain removal 1 week post op - Analgesia: Morphine 8mg IVPB Q3 PRN, Oxycodone 7.5mg Q4, Ofiramev 1000mg Q6 PRN - Protonix 40mg IV, Zofran 4mg IV Q6 #Respiratory: - Intubated - CXR: large heart, unfolded aorta, congestive changes, possible left infiltrates - Symbicort, Ventolin #ID - WBC: likely 2/2 stress - Endorses feeling feverish - Zosyn 2.25 Q8 renally adjusted (3 doses post op for prohylaxis, as per surgery ) - UA: Bacteria 140, LE negative - ID consulted, Dr. Clarita HEIN came down to 2.0 #Cardio - Hx of HTN: Will resume home meds Carvedilol 25mg, - EKG: NSR with rate of 97 and prolonged QTc 482, will avoid zofran and protonix. #Renal - Cr: 3.6 - Bee in place - [place] likely 2/2 Diabetic nephropathy - Nephro consult placed #Endo - Hx of DM - HbA1c 10.5 - Novolog SS ACHS - Dr. Jacobsen consulted for wound on Rt toe #FEN - NPO - Hypoalbuminemia - N/S @ 100 #DVT PE - Lovenox 40mg SQ #Dispo - Monitor in ICU - Surgery plan: NGT removal Friday, Liquids Fri, DC Visit type - Emergency Visit Emergency Visit: Yes ED Registration Date: 03/01/19 Care time: The patient presented to the Emergency Department on the above date and was hospitalized for further evaluation of their emergent condition. - New Patient This patient is new to me today: Yes Date on this admission: 05/20/19 - Critical Care Critical Care patient: No ATTENDING PHYSICIAN STATEMENT I saw and evaluated the patient. I reviewed the resident's note and discussed the case with the resident. I agree with the resident's findings and plan as documented. SUBJECTIVE: OBJECTIVE: ASSESSMENT AND PLAN:
[2019-03-01 17:19] VITALS: BMI 41.3
[2019-03-01] MEDS: PIPERACILLIN/TAZOB 2.25 GM 2.25 GM in DEXTROSE 5%-WATER - 50 ML IVPB SCH ×2 (18:00→20:38)
--- NOTE | 2019-03-01 18:00 | PN ---
Teaching Attending Note Name of Resident: Gonzales Kirkland ATTENDING PHYSICIAN STATEMENT I saw and evaluated the patient. I reviewed the resident's note and discussed the case with the resident. I agree with the resident's findings and plan as documented. SUBJECTIVE: Pt seen and examined in the ICU. Denies shortness of breath. Pain under control. Does report being a snorer, wakes up at night short of breath. Does not feel rested upon awakening and experiences daytime somnolence. OBJECTIVE: Vital Signs Period Temp Pulse Resp BP Sys/Ronquillo Pulse Ox Last 24 Hr 97 F-98.6 F 74-112 14-23 110-147/61-87 95-100 Intake & Output 02/26/19 02/27/19 02/28/19 03/01/19 23:59 23:59 23:59 23:59 Intake Total 2300 Output Total 55 Balance 2245 Weight 110.677 kg 119.884 kg Gen: NAD at rest Heart: RRR Lung: decreased breath sounds at the bases Abd: soft, incision clean, drain with serosanguinous fluid Ext: no edema CBC, BMP 03/01/19 07:34 03/01/19 07:34 ABG Results ABG pH 7.32 (7.35-7.45) L 03/01/19 13:30 ABG pCO2 at Pt Temp 40.1 mmHg (35-45) 03/01/19 13:30 ABG pO2 at Pt Temp 249 mmHg (80-100) H 03/01/19 13:30 ABG HCO3 20.3 mmol/L (22-27) L 03/01/19 13:30 ABG O2 Sat (Measured) 99.6 % (95-98) H 03/01/19 13:30 ABG O2 Content 14.2 % vol 03/01/19 13:30 ABG Base Excess -4.8 meq/l (-2-2) L 03/01/19 13:30 Active Medications Acetaminophen (Ofirmev Injection -) 1,000 mg IVPB Q6H PRN PRN Reason: PAIN LEVEL 1-5 Albuterol Sulfate (Ventolin 0.083% Nebulizer Soln -) 1 amp NEB DAILY [facility] Budesonide/Formoterol Fumarate (Symbicort 160/4.5mcg -) 1 puff IH BID VINCE Enoxaparin Sodium (Lovenox -) 40 mg SQ DAILY [facility] Fentanyl Citrate (Fentanyl 1,000 Mcg/20 Ml Ampul) 250 mcg IVPUSH ONCE ONE Stop: 03/01/19 13:30 Sodium Chloride (Normal Saline -) 1,000 mls @ 100 mls/hr IV ASDIR VINCE Piperacillin Sod/Tazobactam (Sod 2.25 gm/ Dextrose) 50 mls @ 100 mls/hr IVPB Q8H-IV VINCE; Protocol Insulin Aspart (Novolog Vial Sliding Scale -) 1 vial SQ ACHS VINCE; Protocol Morphine Sulfate (Morphine Injection -) 8 mg IVPB Q3H PRN PRN Reason: PAIN LEVEL 7 - 10 Ondansetron HCl (Zofran Injection) 4 mg IVPUSH Q6H PRN PRN Reason: NAUSEA Oxycodone HCl (Roxicodone -) 7.5 mg PO Q4H PRN PRN Reason: PAIN LEVEL 4 - 6 Pantoprazole Sodium (Protonix Iv) 40 mg IVPUSH DAILY [facility] Prochlorperazine Edisylate (Compazine Injection -) 10 mg IVPB Q6H PRN PRN Reason: NAUSEA AND/OR VOMITING ASSESSMENT AND PLAN: Small Bowel Obstruction/Incarcerated Ventral Hernia s/p ex-lap/hernia repair with mesh POD #0 Acute Hypercapneic Respiratory Failure Acute on CKD HTN DM h/o Breast Ca Anemia Morbid Obesity Likely Obstructive Sleep Apnea - pain control - incentive spirometry - antibiotics per ID - inhaled bronchodilators - O2 to keep SpO2 to keep SpO2 >90% - will need outpt PFTs and NPSG - can do sleep screen inpatient when stable - DVT prophylaxis
[2019-03-01] MEDS: INSULIN SLIDING SCALE (NOVOLOG) 1 VIAL SQ SCH ×2 (18:01→21:17)
[2019-03-01] MEDS: morphine SULFATE 4 MG/ML VIAL IVPB PRN (18:35)
[2019-03-01] MEDS: BUDESONIDE/FORMETEROL FUMARATE 160/4.5 mcg INHALER IH SCH (21:18)
[2019-03-01] MEDS: ACETAMINOPHEN 1000 MG/100 ML VIAL (NON FORMULARY) IVPB PRN (22:16)
[2019-03-02] MEDS ORDERED: DEXTROSE 5%-WATER - 50 ML IVPB ONE ×2 (01:45→09:19)
[2019-03-02] MEDS ORDERED: PIPERACILLIN/TAZOBACTAM 2.25 GM VIAL IVPB ONE ×2 (01:45→09:19)
[2019-03-02] MEDS: PIPERACILLIN/TAZOB 2.25 GM 2.25 GM in DEXTROSE 5%-WATER - 50 ML IVPB SCH ×2 (01:57→09:23)
[2019-03-02] MEDS: morphine SULFATE 4 MG/ML VIAL IVPB PRN ×3 (02:00→20:04)
[2019-03-02 06:58] LABS: BASO % 0.3 % (0-2.0); EOS % 0.3 % (0-4.5); HEMATOCRIT 27.2 % (32.4-45.2); HEMOGLOBIN 8.8 GM/dL (10.7-15.3); MCHC 32.2 g/dl (32.0-36.0); MEAN CELL VOLUME 83.8 fl (80-96); MEAN PLT VOLUME 8.7 fl (7.5-11.1); MONO % 12.9 % (3.8-10.2); NEUT % 74.5 % (42.8-82.8); PLATELET COUNT 154 K/MM3 (134-434); RBC 3.25 M/mm3 (3.60-5.2); RDW 14.8 % (11.6-15.6); WHITE BLOOD COUNT 6.4 K/mm3 (4.0-10.0)
[2019-03-02] MEDS: INSULIN SLIDING SCALE (NOVOLOG) 1 VIAL SQ SCH ×4 (07:06→21:45)
[2019-03-02 07:35] LABS: ALBUMIN 2.2 g/dl (3.4-5.0); BILIRUBIN,TOTAL 0.4 mg/dL (0.2-1); BLOOD UREA NITROGEN 38.8 mg/dL (7-18); CALCIUM 8.3 mg/dL (8.5-10.1); CREATININE 3.6 mg/dL (0.55-1.3); MAGNESIUM 1.8 mg/dL (1.8-2.4); PHOSPHOROUS 4.6 mg/dL (2.5-4.9); POTASSIUM 4.5 mmol/L (3.5-5.1); TOT PROT 5.8 g/dl (6.4-8.2)
--- NOTE | 2019-03-02 09:12 | PN ---
Progress Note (short form) - Note Progress Note: POD#1 Pt without any nausea or emesis. NGT not draining well(wall suction appears to not be working, changed wall unit this am). No flatus. Vital Signs Period Temp Pulse Resp BP Sys/Ronquillo Pulse Ox Last 24 Hr 97 F-98.3 F 71-112 10- 110-150/63-99 97-100 Edwards-1900ml yellow urine ISHAAN:20 serosangrenous GEN: A&0x3, NAD CV: RRR Lungs: CTA b/l ABD: Binder in place, incisional c/d/i with ivis. Mild incisional tenderness. CBC, BMP /12/19 06:00 // 06:00 A/p: s/p open repair of incarcerated ventral hernia with absorbable mesh, retrorectus block Continue NGT to LWS OOB to chair/PT consult Remove edwards after OOB to chair Ordered [facility] wall unit to bedside for NGT D/w Dr. Min Ambrosio
[2019-03-02] MEDS: BUDESONIDE/FORMETEROL FUMARATE 160/4.5 mcg INHALER IH SCH ×2 (09:18→21:46)
[2019-03-02] MEDS: ACETAMINOPHEN 1000 MG/100 ML VIAL (NON FORMULARY) IVPB PRN ×2 (09:23→15:24)
[2019-03-02] MEDS ORDERED: PANTOPRAZOLE SODIUM 40 MG VIAL IVPUSH SCH (10:00)
[2019-03-02] MEDS ORDERED: ENOXAPARIN NA (PORCINE) 40 MG/0.4 ML DISP.SYRIN SQ SCH (10:00)
[2019-03-02] MEDS ORDERED: ALBUTEROL SO4 0.083% IH SOL 2.5 MG/3 ML VIAL.NEB. NEB SCH (10:00)
--- NOTE | 2019-03-02 10:04 | PN ---
Progress Note (short form) - Note Progress Note: Anesthesia Post Op Note Pt s/p GA for ventral hernia repair Pt awake alert in bed Pt denies n/v (although NG tube in situ); denies puritis edwards in situ Pt reports good pain control on current regimen VSS no apparent anesthesia complications Lois Ross.
--- NOTE | 2019-03-02 11:18 | DS ---
Physical Exam: SUBJECTIVE: Patient seen and examined OBJECTIVE: Vital Signs Period Temp Pulse Resp BP Sys/Ronquillo Pulse Ox Last 24 Hr 97 F-98.3 F 71-108 10-20 110-150/63-99 97-100 PHYSICAL EXAM GENERAL: The patient is awake, alert, and fully oriented, in no acute distress. HEAD: Normal with no signs of trauma. EYES: PERRL, extraocular movements intact, sclera anicteric, conjunctiva clear. ENT: Ears normal, nares patent, oropharynx clear without exudates, moist mucous membranes. NECK: Trachea midline, full range of motion, supple. LUNGS: Breath sounds equal, clear to auscultation bilaterally, no wheezes, no crackles, no accessory muscle use. HEART: Regular rate and rhythm, S1, S2 without murmur, rub or gallop. ABDOMEN: Soft, nontender, nondistended, normoactive bowel sounds, no guarding, no rebound, no hepatosplenomegaly, no masses. EXTREMITIES: 2+ pulses, warm, well-perfused, no edema. NEUROLOGICAL: Cranial nerves II through XII grossly intact. Normal speech, gait not observed. PSYCH: Normal mood, normal affect. SKIN: Warm, dry, normal turgor, no rashes or lesions noted. LABS Laboratory Results - last 24 hr 03/01/19 03/01/19 03/01/19 11:00 11:32 11:55 WBC RBC Hgb Hct MCV MCH MCHC RDW Plt Count MPV Absolute Neuts (auto) Neutrophils % Lymphocytes % Monocytes % Eosinophils % Basophils % Nucleated RBC % Anticoagulation Therapy No Result Required. Puncture Site Right radial Right radial ABG pH 7.10 L* 7.35 ABG pCO2 at Pt Temp 79.0 H* 37.7 ABG pO2 at Pt Temp 140 H 177 H ABG HCO3 23.2 20.1 L ABG O2 Sat (Measured) 97.3 99.2 H ABG O2 Content 14.4 14.3 ABG Base Excess -7.4 L -4.5 L Enrike Test Positive Positive O2 Delivery Device No Result Required. Oxygen Flow Rate Yes 100 Vent Mode No Result Required. Vent Rate No Result Required. Mechanical Rate No Result Required. Pressure Support Vent No Result Required. Sodium Potassium Chloride Carbon Dioxide Anion Gap BUN Creatinine Est GFR (CKD-EPI)AfAm Est GFR (CKD-EPI)NonAf POC Glucometer 391 Random Glucose Calcium Phosphorus Magnesium Total Bilirubin AST ALT Alkaline Phosphatase Total Protein Albumin 03/01/19 03/01/19 03/01/19 12:57 13:30 14:31 WBC RBC Hgb Hct MCV MCH MCHC RDW Plt Count MPV Absolute Neuts (auto) Neutrophils % Lymphocytes % Monocytes % Eosinophils % Basophils % Nucleated RBC % Anticoagulation Therapy No Result Required. Puncture Site ABG pH 7.32 L ABG pCO2 at Pt Temp 40.1 ABG pO2 at Pt Temp 249 H ABG HCO3 20.3 L ABG O2 Sat (Measured) 99.6 H ABG O2 Content 14.2 ABG Base Excess -4.8 L Enrike Test Not applicable O2 Delivery Device No Result Required. Oxygen Flow Rate Yes Vent Mode No Result Required. Vent Rate No Result Required. Mechanical Rate No Result Required. Pressure Support Vent No Result Required. Sodium Potassium Chloride Carbon Dioxide Anion Gap BUN Creatinine Est GFR (CKD-EPI)AfAm Est GFR (CKD-EPI)NonAf POC Glucometer 366 324 Random Glucose Calcium Phosphorus Magnesium Total Bilirubin AST ALT Alkaline Phosphatase Total Protein Albumin 03/01/19 03/01/19 03/02/19 17:04 21:09 06:00 WBC RBC Hgb Hct MCV MCH MCHC RDW Plt Count MPV Absolute Neuts (auto) Neutrophils % Lymphocytes % Monocytes % Eosinophils % Basophils % Nucleated RBC % Anticoagulation Therapy Puncture Site ABG pH ABG pCO2 at Pt Temp ABG pO2 at Pt Temp ABG HCO3 ABG O2 Sat (Measured) ABG O2 Content ABG Base Excess Enrike Test O2 Delivery Device Oxygen Flow Rate Vent Mode Vent Rate Mechanical Rate Pressure Support Vent Sodium 143 Potassium 4.5 Chloride 114 H Carbon Dioxide 24 Anion Gap 6 L BUN 38.8 H Creatinine 3.6 H Est GFR (CKD-EPI)AfAm 15.39 Est GFR (CKD-EPI)NonAf 13.28 POC Glucometer 239 244 Random Glucose 174 H Calcium 8.3 L Phosphorus 4.6 Magnesium 1.8 Total Bilirubin 0.4 AST 32 ALT 37 Alkaline Phosphatase 70 Total Protein 5.8 L Albumin 2.2 L 03/02/19 03/02/19 06:00 06:52 WBC 6.4 RBC 3.25 L Hgb 8.8 L Hct 27.2 L D MCV 83.8 MCH 27.0 MCHC 32.2 RDW 14.8 Plt Count 154 D MPV 8.7 Absolute Neuts (auto) 4.7 Neutrophils % 74.5 Lymphocytes % 12.0 Monocytes % 12.9 H Eosinophils % 0.3 Basophils % 0.3 Nucleated RBC % 0 Anticoagulation Therapy Puncture Site ABG pH ABG pCO2 at Pt Temp ABG pO2 at Pt Temp ABG HCO3 ABG O2 Sat (Measured) ABG O2 Content ABG Base Excess Enrike Test O2 Delivery Device Oxygen Flow Rate Vent Mode Vent Rate Mechanical Rate Pressure Support Vent Sodium Potassium Chloride Carbon Dioxide Anion Gap BUN Creatinine Est GFR (CKD-EPI)AfAm Est GFR (CKD-EPI)NonAf POC Glucometer 164 Random Glucose Calcium Phosphorus Magnesium Total Bilirubin AST ALT Alkaline Phosphatase Total Protein Albumin HOSPITAL COURSE: Date of Admission:03/01/19 Date of Discharge: 03/02/19 Discharge Summary Problems reviewed: Yes Reason For Visit: SMALL BOWEL OBSTRUCTION Current Active Problems Nausea & vomiting (Acute) SBO (small bowel obstruction) (Acute) Umbilical hernia (Acute) Condition: Fair - Instructions Diet, Activity, Other Instructions: Post Operative Instructions Physical activity Resume your normal everyday activity as tolerated no heavy lifting or exercise until seen by your surgeon. You may walk unlimited amounts of and climb stairs. You may resume driving the car when you feel safe and comfortable behind the wheel. Wound care ABDOMINAL WOUND CARE: Sponge bath only. JOHNNY care. Wear abdominal binder. RIGHT TOE WOUND CARE: apply biacitracin and dry gauze to wound. Follow up in wound clinic with Dr. Jacobsen [phone] Diet There are no dietary restrictions. Eat healthy, high-fiber foods. Drink 6 to 8 glasses of liquid each day. This will assist in keeping your bowels are regular. Pain management You may take Tylenol or acetaminophen or Ibuprofen (for example, Motrin, Advil etc.) Any pain prescription medication ordered should be taken as prescribed for moderate to severe pain. Call Dr. Copeland for any of the following: Severe pain not relieved by medication Fever of 101 or higher Excessive bleeding or drainage on dressing Call the office for a post operative appointment for week of 03/08 for staple/ Johnny removal. Referrals: Zachary Rogel MD [Primary Care Provider] - Felix Jacobsen DO [Staff Physician] - - Home Medications Comprehensive Discharge Medication List: Ambulatory Orders Carvedilol 25 mg PO BID 10/22/14 Montelukast Na [Singulair -] 10 mg PO HS 10/22/14 Pregabalin [Lyrica -] 75 mg PO TID 10/22/14 Cholecalciferol (Vitamin D3) [Vitamin D3] 50,000 unit PO WEEKLY 01/26/16 Tamoxifen Citrate 20 mg PO DAILY 05/24/16 Albuterol 0.083% Nebulizer Page [Ventolin 0.083% Nebulizer Soln -] 1 amp NEB DAILY 09/18/17 Atorvastatin Ca [Lipitor] 20 mg PO HS 09/18/17 Budesonide/Formeterol Fumarate [SYMBICORT 160/4.5mcg -] 1 inh PO BID 09/18/17 Enalapril Maleate [Vasotec] 20 mg PO BID 09/18/17 Hydroxychloroquine Sulfate [Plaquenil] 400 mg PO BID 09/18/17 Mesalamine [Pentasa] 1,000 mg PO QID 09/18/17 Pantoprazole Sodium [Protonix] 40 mg PO DAILY 09/18/17 Folic Acid - 1 mg PO DAILY #30 tablet 09/26/17 Insulin Glargine,Hum.rec.anlog [Lantus] 28 unit SQ BID 11/26/18 Insulin Regular, Human [Humulin R U-500 Kwikpen] 25 unit SQ BID 11/26/18 Atorvastatin Ca [Lipitor] 20 mg PO HS 03/01/19 Duloxetine HCl 20 mg PO DAILY 03/01/19 Potassium Chloride 1 tab PO DAILY 03/01/19 This patient is new to me today: Yes Date on this admission: 03/02/19 Emergency Visit: Yes ED Registration Date: 03/01/19 Care time: The patient presented to the Emergency Department on the above date and was hospitalized for further evaluation of their emergent condition. Critical Care patient: Yes Total Critical Care Time (in minutes): 36 Critical Care Statement: The care of this patient involved high complexity decision making to prevent further life threatening deterioration of the patient 's condition and/or to evaluate & treat vital organ system(s) failure or risk of failure. ATTENDING PHYSICIAN STATEMENT I saw and evaluated the patient. I reviewed the resident's note and discussed the case with the resident. I agree with the resident's findings and plan as documented. SUBJECTIVE: OBJECTIVE: ASSESSMENT AND PLAN:
--- NOTE | 2019-03-02 11:50 | PN ---
Teaching Attending Note Name of Resident: Karla Mejia ATTENDING PHYSICIAN STATEMENT I saw and evaluated the patient. I reviewed the resident's note and discussed the case with the resident. I agree with the resident's findings and plan as documented. SUBJECTIVE: Pt seen and examined in the ICU. Pain controlled. Denies shortness of breath or chest pain. OBJECTIVE: Vital Signs Period Temp Pulse Resp BP Sys/Ronquillo Pulse Ox Last 24 Hr 97 F-98.3 F 71-108 10-20 110-150/63-99 97-100 Intake & Output 02/27/19 02/28/19 03/01/19 03/02/19 23:59 23:59 23:59 23:59 Intake Total 2700 Output Total 1155 810 Balance 1545 -810 Weight 110.677 kg 119.884 kg Gen: NAD at rest Heart: RRR Lung: decreased breath sounds at the bases Abd: soft, incision clean Ext: no edema Drain with serosanguinous fluid CBC, BMP 03/02/19 06:00 03/02/19 06:00 Active Medications Acetaminophen (Ofirmev Injection -) 1,000 mg IVPB Q6H PRN PRN Reason: PAIN LEVEL 1-5 Last Admin: 03/02/19 09:23 Dose: 1,000 mg Albuterol Sulfate (Ventolin 0.083% Nebulizer Soln -) 1 amp NEB DAILY [facility] Bacitracin (Bacitracin -) 1 applic TP DAILY [facility] Budesonide/Formoterol Fumarate (Symbicort 160/4.5mcg -) 1 puff IH BID [facility] Last Admin: 03/02/19 09:18 Dose: 1 puff Enoxaparin Sodium (Lovenox -) 40 mg SQ DAILY [facility] Last Admin: 03/02/19 09:22 Dose: 40 mg Fentanyl Citrate (Fentanyl 1,000 Mcg/20 Ml Ampul) 250 mcg IVPUSH ONCE ONE Stop: 03/01/19 13:30 Sodium Chloride (Normal Saline -) 1,000 mls @ 100 mls/hr IV ASDIR [facility] Last Admin: 03/01/19 15:00 Dose: 100 mls/hr Insulin Aspart (Novolog Vial Sliding Scale -) 1 vial SQ ACHS [facility]; Protocol Last Admin: 03/02/19 07:06 Dose: 2 units Morphine Sulfate (Morphine Sulfate) 2 mg IVPB Q4H PRN PRN Reason: PAIN LEVEL 7 - 10 Last Admin: 03/02/19 10:01 Dose: 2 mg Ondansetron HCl (Zofran Injection) 4 mg IVPUSH Q6H PRN PRN Reason: NAUSEA Oxycodone HCl (Roxicodone -) 7.5 mg PO Q4H PRN PRN Reason: PAIN LEVEL 4 - 6 Pantoprazole Sodium (Protonix Iv) 40 mg IVPUSH DAILY [facility] Last Admin: 03/02/19 09:22 Dose: 40 mg Prochlorperazine Edisylate (Compazine Injection -) 10 mg IVPB Q6H PRN PRN Reason: NAUSEA AND/OR VOMITING ASSESSMENT AND PLAN: Small Bowel Obstruction/Incarcerated Ventral Hernia s/p ex-lap/hernia repair with mesh POD #1 Acute Hypercapneic Respiratory Failure improving Acute on CKD HTN DM h/o Breast Ca Anemia Morbid Obesity Likely Obstructive Sleep Apnea - pain control - incentive spirometry - antibiotics per ID - inhaled bronchodilators - O2 to keep SpO2 to keep SpO2 >90% - will need outpt PFTs and NPSG - can do sleep screen inpatient when stable - DVT prophylaxis - can monitor on floor
[2019-03-02] MEDS: SODIUM CHLORIDE 1,000 ML IV SCH (12:06)
--- NOTE | 2019-03-02 12:15 | PN ---
Physical Exam: SUBJECTIVE: Patient seen and examined at bedside. Complains of pain at surgical site. She has not passed gas but is making urine. No acute events overnight. Denies difficulty breathing. Complains of reproducible chest tenderness. OBJECTIVE: Vital Signs Period Temp Pulse Resp BP Sys/Ronquillo Pulse Ox Last 24 Hr 97 F-98.3 F 71-108 10-20 110-150/63-99 97-100 GENERAL: The patient is awake, alert, and fully oriented, in no acute distress. HEAD: Normal with no signs of trauma. EYES: PEERL, EOMI, no scleral icterus ENT: oropharynx clear without exudates, dry mucous membranes. NECK: supple, no cervical lymphadenopathy LUNGS: decreased breath sounds, no wheezing, no rhonchi, no rales. no accessory muscle use HEART: Regular rate and rhythm, S1, S2 without murmur, rub or gallop. ABDOMEN: surgical incision clean, dry, intact without surrounding erythema or swelling. ISHAAN drain in place, draining serosanguinous fluid. moderate tenderness to palpation. soft, non distended. abdominal binder in place EXTREMITIES: 2+ pulses, warm, well-perfused, no edema. NEUROLOGICAL: Cranial nerves II through XII grossly intact. Normal speech, gait not observed. Sensation intact throughout. PSYCH: Normal mood, normal affect. SKIN: Warm, dry, normal turgor, no rashes or lesions noted Laboratory Results - last 24 hr 03/01/19 03/01/19 03/01/19 11:55 12:57 13:30 WBC RBC Hgb Hct MCV MCH MCHC RDW Plt Count MPV Absolute Neuts (auto) Neutrophils % Lymphocytes % Monocytes % Eosinophils % Basophils % Nucleated RBC % Anticoagulation Therapy No Result Required. No Result Required. Puncture Site Right radial ABG pH 7.35 7.32 L ABG pCO2 at Pt Temp 37.7 40.1 ABG pO2 at Pt Temp 177 H 249 H ABG HCO3 20.1 L 20.3 L ABG O2 Sat (Measured) 99.2 H 99.6 H ABG O2 Content 14.3 14.2 ABG Base Excess -4.5 L -4.8 L Enrike Test Positive Not applicable O2 Delivery Device No Result Required. No Result Required. Oxygen Flow Rate 100 Yes Vent Mode No Result Required. No Result Required. Vent Rate No Result Required. No Result Required. Mechanical Rate No Result Required. No Result Required. Pressure Support Vent No Result Required. No Result Required. Sodium Potassium Chloride Carbon Dioxide Anion Gap BUN Creatinine Est GFR (CKD-EPI)AfAm Est GFR (CKD-EPI)NonAf POC Glucometer 366 Random Glucose Calcium Phosphorus Magnesium Total Bilirubin AST ALT Alkaline Phosphatase Total Protein Albumin 03/01/19 03/01/19 03/01/19 14:31 17:04 21:09 WBC RBC Hgb Hct MCV MCH MCHC RDW Plt Count MPV Absolute Neuts (auto) Neutrophils % Lymphocytes % Monocytes % Eosinophils % Basophils % Nucleated RBC % Anticoagulation Therapy Puncture Site ABG pH ABG pCO2 at Pt Temp ABG pO2 at Pt Temp ABG HCO3 ABG O2 Sat (Measured) ABG O2 Content ABG Base Excess Enrike Test O2 Delivery Device Oxygen Flow Rate Vent Mode Vent Rate Mechanical Rate Pressure Support Vent Sodium Potassium Chloride Carbon Dioxide Anion Gap BUN Creatinine Est GFR (CKD-EPI)AfAm Est GFR (CKD-EPI)NonAf POC Glucometer 324 239 244 Random Glucose Calcium Phosphorus Magnesium Total Bilirubin AST ALT Alkaline Phosphatase Total Protein Albumin 03/02/19 03/02/19 03/02/19 06:00 06:00 06:52 WBC 6.4 RBC 3.25 L Hgb 8.8 L Hct 27.2 L D MCV 83.8 MCH 27.0 MCHC 32.2 RDW 14.8 Plt Count 154 D MPV 8.7 Absolute Neuts (auto) 4.7 Neutrophils % 74.5 Lymphocytes % 12.0 Monocytes % 12.9 H Eosinophils % 0.3 Basophils % 0.3 Nucleated RBC % 0 Anticoagulation Therapy Puncture Site ABG pH ABG pCO2 at Pt Temp ABG pO2 at Pt Temp ABG HCO3 ABG O2 Sat (Measured) ABG O2 Content ABG Base Excess Enrike Test O2 Delivery Device Oxygen Flow Rate Vent Mode Vent Rate Mechanical Rate Pressure Support Vent Sodium 143 Potassium 4.5 Chloride 114 H Carbon Dioxide 24 Anion Gap 6 L BUN 38.8 H Creatinine 3.6 H Est GFR (CKD-EPI)AfAm 15.39 Est GFR (CKD-EPI)NonAf 13.28 POC Glucometer 164 Random Glucose 174 H Calcium 8.3 L Phosphorus 4.6 Magnesium 1.8 Total Bilirubin 0.4 AST 32 ALT 37 Alkaline Phosphatase 70 Total Protein 5.8 L Albumin 2.2 L Active Medications Generic Name Dose Route Start Last Admin Trade Name Freq PRN Reason Stop Dose Admin Acetaminophen 1,000 mg 03/01/19 11:33 03/02/19 09:23 Ofirmev Injection - IVPB 1,000 mg Q6H PRN Administration PAIN LEVEL 1-5 Albuterol Sulfate 1 amp 03/02/19 10:00 Ventolin 0.083% Nebulizer Soln - NEB DAILY [facility] Bacitracin 1 applic 03/03/19 10:00 Bacitracin - TP DAILY [facility] Budesonide/Formoterol Fumarate 1 puff 03/01/19 22:00 03/02/19 09:18 Symbicort 160/4.5mcg - IH 1 puff BID [facility] Administration Enoxaparin Sodium 40 mg 03/02/19 10:00 03/02/19 09:22 Lovenox - SQ 40 mg DAILY [facility] Administration Fentanyl Citrate 250 mcg 03/01/19 13:29 Fentanyl 1,000 Mcg/20 Ml Ampul IVPUSH 03/01/19 13:30 ONCE ONE Sodium Chloride 1,000 mls @ 100 mls/hr 03/01/19 11:33 03/01/19 15:00 Normal Saline - IV 100 mls/hr ASDIR [facility] Administration Insulin Aspart 1 vial 03/01/19 16:30 03/02/19 07:06 Novolog Vial Sliding Scale - SQ 2 units ACHS [facility] Administration Protocol Morphine Sulfate 2 mg 03/02/19 09:36 03/02/19 10:01 Morphine Sulfate IVPB 2 mg Q4H PRN Administration PAIN LEVEL 7 - 10 Ondansetron HCl 4 mg 03/01/19 10:19 Zofran Injection IVPUSH Q6H PRN NAUSEA Oxycodone HCl 7.5 mg 03/01/19 10:19 Roxicodone - PO Q4H PRN PAIN LEVEL 4 - 6 Pantoprazole Sodium 40 mg 03/02/19 10:00 03/02/19 09:22 Protonix Iv IVPUSH 40 mg DAILY [facility] Administration Prochlorperazine Edisylate 10 mg 03/01/19 11:33 Compazine Injection - IVPB Q6H PRN NAUSEA AND/OR VOMITING ASSESSMENT/PLAN: 58 y/o/f with PMH of DM,, HTN, CKD, Asthma, RA, Left breast CA (s/p radiation), fibromyalgia, chronic low back pain, ventral hernia, presented to the ER with abdominal pain, nausea, and vomiting for 3 days and was admitted for SBO 2/2 to ventral hernia on 03/01. POD#1 after incarcerated ventral hernia repair with absorbable mesh. #Neuro - Analgesia: Morphine 2mg IVPB Q4hr PRN, Oxycodone 7.5mg Q4, Ofiramev 1000mg Q6 PRN - AAOx3 #GI - SBO 2/2 to ventral hernia - POD#1 (Dr. Copeland): incarcerated ventral hernia repair with absorbable mesh and reduction of sbo. - Continue NGT with wall suction - Patient ambulating out of bed, will D/C edwards - ISHAAN drain removal 1 week post op - Protonix 40mg IV, Zofran 4mg IV Q6hr #Respiratory - Extubated, now on nasal cannula - Keep O2 saturation >90% - CXR: large heart, unfolded aorta, congestive changes, possible left infiltrates - Symbicort, Ventolin #ID - WBC normalized - Zosyn 2.25 Q8 renally adjusted (3 doses post op for prohylaxis, as per surgery ) - UA: Bacteria 140, LE negative - ID consulted, Dr. Otto - Lactic acid normalized #Cardio - Hx of HTN: may resume home meds Carvedilol 25mg as BP allows - EKG: NSR with rate of 97 and prolonged QTc 482, will avoid zofran and protonix. #Renal - BUN/Ct at 38.8/3.6. monitor - [place] likely 2/2 Diabetic nephropathy - Nephro consult placed #Endo - Hx of DM - HbA1c 10.5 - Novolog SS ACHS - Dr. Jacobsen consulted for wound on Rt toe #FEN - NPO - Hypoalbuminemia - N/S @ 100 mls/hr #DVT PE - Lovenox 40mg SQ - Protonix #Dispo - Stable for transfer for Med/Surg - Surgery plan: Continue NGT tube for now, Liquids Fri, Visit type - Emergency Visit Emergency Visit: Yes ED Registration Date: 03/01/19 Care time: The patient presented to the Emergency Department on the above date and was hospitalized for further evaluation of their emergent condition. - New Patient This patient is new to me today: Yes Date on this admission: 03/02/19 - Critical Care Critical Care patient: Yes Total Critical Care Time (in minutes): 36 Critical Care Statement: The care of this patient involved high complexity decision making to prevent further life threatening deterioration of the patient 's condition and/or to evaluate & treat vital organ system(s) failure or risk of failure. ATTENDING PHYSICIAN STATEMENT I saw and evaluated the patient. I reviewed the resident's note and discussed the case with the resident. I agree with the resident's findings and plan as documented. SUBJECTIVE: OBJECTIVE: ASSESSMENT AND PLAN:
[2019-03-02] MEDS ORDERED: PROCHLORPERAZINE INJECTION 10 MG/2 ML VIAL IVPB PRN (13:35)
[2019-03-02] MEDS ORDERED: ONDANSETRON 4 MG/2 ML VIAL IVPUSH PRN (13:35)
[2019-03-02] MEDS ORDERED: fentaNYL CITRATE/PF 1,000 MCG/20 ML AMPUL IVPUSH ONE (13:35)
[2019-03-02] MEDS ORDERED: SODIUM CHLORIDE 1,000 ML IV SCH (13:35)
--- NOTE | 2019-03-02 14:11 | CONSULT ---
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 Pt is awake and alert, s/p small bowel resection and hernia repair. She continues to have tenderness in Abd. Has NGT in place on wall suction. Denies any sob, cp, fever, chills. No leg swelling. Making urine. Bee removed today. No hematuria. No NSIAD use. Was on ACEi at home. No overt or relative hypotension noted. PMhx: as above Allergies: NKDA Family Hx: NC Social Hx: No T/A/D ROS: as per HPI, all other pertinent ros negative Home Medications Medication Instructions Recorded Carvedilol 25 mg PO BID 10/22/14 Montelukast Na [Singulair -] 10 mg PO HS 10/22/14 Pregabalin [Lyrica -] 75 mg PO TID 10/22/14 Cholecalciferol (Vitamin D3) 50,000 unit PO WEEKLY 01/26/16 [Vitamin D3] Tamoxifen Citrate 20 mg PO DAILY 05/24/16 Albuterol 0.083% Nebulizer Page 1 amp NEB DAILY 09/18/17 [Ventolin 0.083% Nebulizer Soln -] Atorvastatin Ca [Lipitor] 20 mg PO HS 09/18/17 Budesonide/Formeterol Fumarate 1 inh PO BID 09/18/17 [SYMBICORT 160/4.5mcg -] Enalapril Maleate [Vasotec] 20 mg PO BID 09/18/17 Hydroxychloroquine Sulfate 400 mg PO BID 09/18/17 [Plaquenil] Mesalamine [Pentasa] 1,000 mg PO QID 09/18/17 Pantoprazole Sodium [Protonix] 40 mg PO DAILY 09/18/17 Folic Acid - 1 mg PO DAILY #30 tablet 09/26/17 Insulin Glargine,Hum.rec.anlog 28 unit SQ BID 11/26/18 [Lantus] Insulin Regular, Human [Humulin R 25 unit SQ BID 11/26/18 U-500 Kwikpen] Atorvastatin Ca [Lipitor] 20 mg PO HS 03/01/19 Duloxetine HCl 20 mg PO DAILY 03/01/19 Potassium Chloride 1 tab PO DAILY 03/01/19 Vital Signs Temperature 97.9 F 03/02/19 13:25 Pulse Rate 81 03/02/19 13:25 Respiratory Rate 18 03/02/19 13:25 Blood Pressure 128/55 L 03/02/19 13:25 O2 Sat by Pulse Oximetry (%) 99 03/02/19 08:45 Intake & Output 02/27/19 02/28/19 03/01/19 03/02/19 23:59 23:59 23:59 23:59 Intake Total 2700 600 Output Total 1155 1330 Balance 1545 -730 Weight 110.677 kg 119.884 kg NAD awake and alert neck supple, no JVD NGT in place RRR CTA Abd binder in place no LE edema, clubbing or cyanosis no skin rash CBC, BMP 03/02/19 06:00 03/02/19 06:00 Current Medications Acetaminophen (Ofirmev Injection -) 1,000 mg IVPB Q6H PRN PRN Reason: PAIN LEVEL 1-5 Albuterol Sulfate (Ventolin 0.083% Nebulizer Soln -) 1 amp NEB DAILY [facility] Bacitracin (Bacitracin -) 1 applic TP DAILY [facility] Budesonide/Formoterol Fumarate (Symbicort 160/4.5mcg -) 1 puff IH BID [facility] Enoxaparin Sodium (Lovenox -) 40 mg SQ DAILY [facility] Fentanyl Citrate (Fentanyl 1,000 Mcg/20 Ml Ampul) 250 mcg IVPUSH ONCE ONE Stop: 03/02/19 13:36 Sodium Chloride (Normal Saline -) 1,000 mls @ 100 mls/hr IV ASDIR [facility] Last Admin: 03/02/19 13:00 Dose: 100 mls/hr Insulin Aspart (Novolog Vial Sliding Scale -) 1 vial SQ ACHS [facility]; Protocol Morphine Sulfate (Morphine Sulfate) 2 mg IVPB Q4H PRN PRN Reason: PAIN LEVEL 7 - 10 Last Admin: 03/02/19 10:01 Dose: 2 mg Ondansetron HCl (Zofran Injection) 4 mg IVPUSH Q6H PRN PRN Reason: NAUSEA Oxycodone HCl (Roxicodone -) 7.5 mg PO Q4H PRN PRN Reason: PAIN LEVEL 4 - 6 Pantoprazole Sodium (Protonix Iv) 40 mg IVPUSH DAILY [facility] Prochlorperazine Edisylate (Compazine Injection -) 10 mg IVPB Q6H PRN PRN Reason: NAUSEA AND/OR VOMITING 58 year old woman with history of CKD stage 4 (unclear baseline Cr was ~2 in 2018, 2.9 to 4.3 in 2019, 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 1. Acute kidney injury (differential: Volume depeltion vs. normotensive ATN ( ACEi) vs. progressive CKD) 2. CKD stage 4 3. Small bowel obstruction s/p surgical resection 4. Acute Anemia 5. Hypertension 6. DM on insulin Check urine studies for FeNa, Feurea, UPCR, Urine Eosinophils Continue isotonic saline at 100cc per hour keep MAP > 65 no overt electrolyte or acid/base disturbance noted and pt is euvolemic on examination no acute indication for PRE [employer] continue supportive care Trend H/H, transfuse as per protocol Withhold ACEi given kidney injury if BP > 160/100 can consider addition of IV hydralazine or labetalol pain control without opiods will attempt to obtain baseline labs from primary cut and cover line worker Thank you Riley Rashid DO
--- NOTE | 2019-03-02 15:17 | PN ---
Physical Exam: SUBJECTIVE: Patient seen and examined 58 y/o F, pmh of DM on insulin, HTN, CKD, Asthma, RA, Left breast cancer s/p radiation, fibromyalgia, chronic low back pain, ventral hernia, presents with abdominal pain associated with distension, n/v of 3 day duration admitted for SBO 2/2 to ventral hernia. Currently, pt is s/p surgery, stable, afebrile, asymptomatic without any c/o or issues. Pt is doing well. Denies f/c/n/v/d/sob/ chest pain. OBJECTIVE: Vital Signs Last Vital Signs Temp Pulse Resp BP Pulse Ox 97.9 F 81 18 128/55 L 99 03/02/19 13:25 03/02/19 13:25 03/02/19 13:25 03/02/19 13:25 03/02/19 08:45 GENERAL: Awake, alert,. Recovering from anesthesia. NGT in place and draining EYES: Pupils equal, round and reactive to light, extraocular movements intact, sclera anicteric EARS, NOSE, THROAT: oropharynx clear without exudates. Dry mucous membranes. NECK: Normal range of motion, supple without lymphadenopathy LUNGS: Breath sounds equal, clear to auscultation bilaterally. No wheezes, and no crackles. HEART: Regular rate and rhythm, normal S1 and S2 without murmur. ABDOMEN: Soft, s/p surgery. Salazar appear intact, w/o drainage, erythema, purulence. Abdominal binder present. JOSE drain appears intact. Serosanginous jose drainage. UPPER EXTREMITIES: 2+ pulses, warm, well-perfused. No cyanosis. No peripheral edema. LOWER EXTREMITIES: 2+ pulses, warm, well-perfused. No calf tenderness. Black dry necrotic ulcer on side of R first toe. Non-tender. NEUROLOGICAL: Cranial nerves II-XII intact. SKIN: Warm, dry, Laboratory Results - last 24 hr CBC,CMP WBC 6.4 K/mm3 (4.0-10.0) 03/02/19 06:00 RBC 3.25 M/mm3 (3.60-5.2) L 03/02/19 06:00 Hgb 8.8 GM/dL (10.7-15.3) L 03/02/19 06:00 Hct 27.2 % (32.4-45.2) L D 03/02/19 06:00 MCV 83.8 fl (80-96) 03/02/19 06:00 MCH 27.0 pg (25.7-33.7) 03/02/19 06:00 MCHC 32.2 g/dl (32.0-36.0) 03/02/19 06:00 RDW 14.8 % (11.6-15.6) 03/02/19 06:00 Plt Count 154 K/MM3 (134-434) D 03/02/19 06:00 MPV 8.7 fl (7.5-11.1) 03/02/19 06:00 Absolute Neuts (auto) 4.7 K/mm3 (1.5-8.0) 03/02/19 06:00 Neutrophils % 74.5 % (42.8-82.8) 03/02/19 06:00 Lymphocytes % 12.0 % (8-40) 03/02/19 06:00 Monocytes % 12.9 % (3.8-10.2) H 03/02/19 06:00 Eosinophils % 0.3 % (0-4.5) 03/02/19 06:00 Basophils % 0.3 % (0-2.0) 03/02/19 06:00 Nucleated RBC % 0 % (0-0) 03/02/19 06:00 Sodium 143 mmol/L (136-145) 03/02/19 06:00 Potassium 4.5 mmol/L (3.5-5.1) 03/02/19 06:00 Chloride 114 mmol/L (98-107) H 03/02/19 06:00 Carbon Dioxide 24 mmol/L (21-32) 03/02/19 06:00 Anion Gap 6 MMOL/L (8-16) L 03/02/19 06:00 BUN 38.8 mg/dL (7-18) H 03/02/19 06:00 Creatinine 3.6 mg/dL (0.55-1.3) H 03/02/19 06:00 Est GFR (CKD-EPI)AfAm 15.39 03/02/19 06:00 Est GFR (CKD-EPI)NonAf 13.28 03/02/19 06:00 POC Glucometer 160 UNITS (80-120) 03/02/19 11:58 Random Glucose 174 mg/dL (74-106) H 11/12/19 06:00 Hemoglobin A1c % 10.5 % (4.2-6.3) H 03/01/19 07:34 Lactic Acid 2.0 mmol/L (0.4-2.0) 03/01/19 07:34 Calcium 8.3 mg/dL (8.5-10.1) L 03/02/19 06:00 Phosphorus 4.6 mg/dL (2.5-4.9) 03/02/19 06:00 Magnesium 1.8 mg/dL (1.8-2.4) 03/02/19 06:00 Total Bilirubin 0.4 mg/dL (0.2-1) 03/02/19 06:00 AST 32 U/L (15-37) 03/02/19 06:00 ALT 37 U/L (13-61) 03/02/19 06:00 Alkaline Phosphatase 70 U/L (45-117) 03/02/19 06:00 Creatine Kinase 97 U/L (26-192) 03/01/19 01:52 Troponin I < 0.02 ng/ml (0.00-0.05) 03/01/19 01:52 Total Protein 5.8 g/dl (6.4-8.2) L 03/02/19 06:00 Albumin 2.2 g/dl (3.4-5.0) L 03/02/19 06:00 Lipase 89 U/L (73-393) 03/01/19 01:52 Active Medications Current Medications Acetaminophen (Ofirmev Injection -) 1,000 mg IVPB Q6H PRN PRN Reason: PAIN LEVEL 1-5 Albuterol Sulfate (Ventolin 0.083% Nebulizer Soln -) 1 amp NEB DAILY [facility] Bacitracin (Bacitracin -) 1 applic TP DAILY [facility] Budesonide/Formoterol Fumarate (Symbicort 160/4.5mcg -) 1 puff IH BID [facility] Enoxaparin Sodium (Lovenox -) 40 mg SQ DAILY [facility] Fentanyl Citrate (Fentanyl 1,000 Mcg/20 Ml Ampul) 250 mcg IVPUSH ONCE ONE Stop: 03/02/19 13:36 Sodium Chloride (Normal Saline -) 1,000 mls @ 100 mls/hr IV ASDIR [facility] Last Admin: 03/02/19 13:00 Dose: 100 mls/hr Insulin Aspart (Novolog Vial Sliding Scale -) 1 vial SQ ACHS [facility]; Protocol Morphine Sulfate (Morphine Sulfate) 2 mg IVPB Q4H PRN PRN Reason: PAIN LEVEL 7 - 10 Last Admin: 03/02/19 10:01 Dose: 2 mg Ondansetron HCl (Zofran Injection) 4 mg IVPUSH Q6H PRN PRN Reason: NAUSEA Oxycodone HCl (Roxicodone -) 7.5 mg PO Q4H PRN PRN Reason: PAIN LEVEL 4 - 6 Pantoprazole Sodium (Protonix Iv) 40 mg IVPUSH DAILY [facility] Prochlorperazine Edisylate (Compazine Injection -) 10 mg IVPB Q6H PRN PRN Reason: NAUSEA AND/OR VOMITING Home Medications Medication Instructions Recorded Carvedilol 25 mg PO BID 10/22/14 Montelukast Na [Singulair -] 10 mg PO HS 10/22/14 Pregabalin [Lyrica -] 75 mg PO TID 10/22/14 Cholecalciferol (Vitamin D3) 50,000 unit PO WEEKLY 01/26/16 [Vitamin D3] Tamoxifen Citrate 20 mg PO DAILY 05/24/16 Albuterol 0.083% Nebulizer Page 1 amp NEB DAILY 09/18/17 [Ventolin 0.083% Nebulizer Soln -] Atorvastatin Ca [Lipitor] 20 mg PO HS 09/18/17 Budesonide/Formeterol Fumarate 1 inh PO BID 09/18/17 [SYMBICORT 160/4.5mcg -] Enalapril Maleate [Vasotec] 20 mg PO BID 09/18/17 Hydroxychloroquine Sulfate 400 mg PO BID 09/18/17 [Plaquenil] Mesalamine [Pentasa] 1,000 mg PO QID 09/18/17 Pantoprazole Sodium [Protonix] 40 mg PO DAILY 09/18/17 Folic Acid - 1 mg PO DAILY #30 tablet 09/26/17 Insulin Glargine,Hum.rec.anlog 28 unit SQ BID 11/26/18 [Lantus] Insulin Regular, Human [Humulin R 25 unit SQ BID 11/26/18 U-500 Kwikpen] Atorvastatin Ca [Lipitor] 20 mg PO HS 03/01/19 Duloxetine HCl 20 mg PO DAILY 03/01/19 Potassium Chloride 1 tab PO DAILY 03/01/19 ASSESSMENT/PLAN: 58 y/o F, pmh of DM on insulin, HTN, CKD, Asthma, RA, Left breast cancer s/p radiation, fibromyalgia, chronic low back pain, ventral hernia, presents with abdominal pain associated with distension, n/v of 3 day duration admitted for SBO 2/2 to ventral hernia #SBO 2/2 to incarcerated ventral hernia s/p surgery, Extubated, now on nasal cannula CT a/p- evident for SBO likely from an incarcerated ventral hernia Surgery, Dr. Copeland- s/p incarcerated ventral hernia repair with absorbable mesh and reduction of sbo. EKG- NSR with rate of 97 and prolonged QTc 482 Avoid zofran and protonix. Pain control- IV morphine 2mg Q4H, oxycodone 7.5 mg Q4H PO, Ofiramev 1000mg Q6 PRN As per Surgery s/p surgery Zosyn-D/Ten today Keep NPO Surgery plans removal of NGT today Liquid diet tomorrow Consider Discharge home JOSE drain will likely remain for 1 week and removed outpt at the office #CKD/ [place] likely due to Diabetic nephropathy avoid nephrotoxic agents such as NSAIDS, aminoglycosides, contrast dyes Cre 3.6 today As per Nephro consult: Ordered FeNa, Feurea, UPCR, Urine Eosinophils Keep MAP > 65, pt euvolemic, no need for ANIMAL RIDE ATTENDANT Withhold ACEi given kidney injury if BP > 160/100 can consider addition of IV hydralazine or labetalol Pain control without Opiods Nephro will attempt to obtain baseline labs from primary intern product marketing manager #Leukocytosis likely 2/2 stress vs infection source unknown, endorses Fever and chills CXR- large heart, unfolded aorta, congestive changes, possible left infiltrates Lactic acid- came down to 2.0 continue IV NS at 100 #Hypoalbuminemia- monitor albumin adequate diet #DM HbA1c- 10.5 BGM ACHS ISS #HTN Hold home meds- enalapril #FEN NS at 100 # DVT PPx SCDs b/l Dispo- control pain, ngt removal today, clear liquids tomorrow Visit type - Emergency Visit Emergency Visit: Yes ED Registration Date: 03/01/19 Care time: The patient presented to the Emergency Department on the above date and was hospitalized for further evaluation of their emergent condition. - New Patient This patient is new to me today: Yes Date on this admission: 03/04/19 - Critical Care Critical Care patient: No - Discharge Referral Referred to [facility] Med P.C.: No ATTENDING PHYSICIAN STATEMENT I saw and evaluated the patient. I reviewed the resident's note and discussed the case with the resident. I agree with the resident's findings and plan as documented. SUBJECTIVE: OBJECTIVE: ASSESSMENT AND PLAN:
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
[2019-03-02] MEDS ORDERED: INSULIN (NOVOLOG) ASPART 100 UNITS/ML 10ML VIAL ONE (16:47)
--- NOTE | 2019-03-02 17:00 | PN ---
Teaching Attending Note Name of Resident: Lang aMjor ATTENDING PHYSICIAN STATEMENT I saw and evaluated the patient. I reviewed the resident's note and discussed the case with the resident. I agree with the resident's findings and plan as documented. SUBJECTIVE: Patient is doing better today, less abdominal pain. no gas yet. Vital Signs Temperature 97.9 F 03/02/19 13:25 Pulse Rate 81 03/02/19 13:25 Respiratory Rate 18 03/02/19 13:25 Blood Pressure 128/55 L 03/02/19 13:25 O2 Sat by Pulse Oximetry (%) 99 03/02/19 08:45 GENERAL: The patient is awake, alert, and fully oriented, in no acute distress. HEAD: Normal with no signs of trauma. EYES: PERRL, extraocular movements intact, sclera anicteric, conjunctiva clear. ENT: Ears normal, oropharynx clear without exudates, moist mucous membranes. NECK: Trachea midline, full range of motion, supple. LUNGS: Breath sounds equal, clear to auscultation bilaterally, no wheezes, no crackles, no accessory muscle use. HEART: Regular rate and rhythm, S1, S2 without murmur, rub or gallop. ABDOMEN: Soft, positive for abdominal binder, positive for drainage , No BS, no guarding, no rebound, no hepatosplenomegaly, no masses. EXTREMITIES: 2+ pulses, warm, well-perfused, no edema. NEUROLOGICAL: Cranial nerves II through XII grossly intact. Normal speech, gait not observed. PSYCH: Normal mood, normal affect. SKIN: Warm, dry, normal turgor, no rashes or lesions noted CBCD WBC 6.4 K/mm3 (4.0-10.0) 03/02/19 06:00 RBC 3.25 M/mm3 (3.60-5.2) L 03/02/19 06:00 Hgb 8.8 GM/dL (10.7-15.3) L 03/02/19 06:00 Hct 27.2 % (32.4-45.2) L D 03/02/19 06:00 MCV 83.8 fl (80-96) 03/02/19 06:00 MCHC 32.2 g/dl (32.0-36.0) 03/02/19 06:00 RDW 14.8 % (11.6-15.6) 03/02/19 06:00 Plt Count 154 K/MM3 (134-434) D 03/02/19 06:00 MPV 8.7 fl (7.5-11.1) 03/02/19 06:00 CMP Sodium 143 mmol/L (136-145) 03/02/19 06:00 Potassium 4.5 mmol/L (3.5-5.1) 03/02/19 06:00 Chloride 114 mmol/L (98-107) H 03/02/19 06:00 Carbon Dioxide 24 mmol/L (21-32) 03/02/19 06:00 Anion Gap 6 MMOL/L (8-16) L 03/02/19 06:00 BUN 38.8 mg/dL (7-18) H 03/02/19 06:00 Creatinine 3.6 mg/dL (0.55-1.3) H 03/02/19 06:00 Random Glucose 174 mg/dL (74-106) H 03/02/19 06:00 Calcium 8.3 mg/dL (8.5-10.1) L 03/02/19 06:00 Total Bilirubin 0.4 mg/dL (0.2-1) 03/02/19 06:00 AST 32 U/L (15-37) 03/02/19 06:00 ALT 37 U/L (13-61) 03/02/19 06:00 Alkaline Phosphatase 70 U/L (45-117) 03/02/19 06:00 Total Protein 5.8 g/dl (6.4-8.2) L 03/02/19 06:00 Albumin 2.2 g/dl (3.4-5.0) L 03/02/19 06:00 CARDIAC ENZYMES Creatine Kinase 97 U/L (26-192) 03/01/19 01:52 Troponin I < 0.02 ng/ml (0.00-0.05) 03/01/19 01:52 Current Medications Generic Name Dose Route Start Last Admin Trade Name Freq PRN Reason Stop Dose Admin Acetaminophen 1,000 mg 03/02/19 13:35 03/02/19 15:24 Ofirmev Injection - IVPB 1,000 mg Q6H PRN Administration PAIN LEVEL 1-5 Albuterol Sulfate 1 amp 03/03/19 10:00 Ventolin 0.083% Nebulizer Soln - NEB DAILY [facility] Bacitracin 1 applic 03/03/19 10:00 Bacitracin - TP DAILY [facility] Budesonide/Formoterol Fumarate 1 puff 03/02/19 22:00 Symbicort 160/4.5mcg - IH BID [facility] Enoxaparin Sodium 40 mg 03/03/19 10:00 Lovenox - SQ DAILY [facility] Fentanyl Citrate 250 mcg 03/02/19 13:35 Fentanyl 1,000 Mcg/20 Ml Ampul IVPUSH 03/02/19 13:36 ONCE ONE Sodium Chloride 1,000 mls @ 100 mls/hr 03/02/19 13:35 03/02/19 13:00 Normal Saline - IV 100 mls/hr ASDIR [facility] Administration Insulin Aspart 1 vial 03/02/19 16:30 03/02/19 16:50 Novolog Vial Sliding Scale - SQ 2 units ACHS [facility] Administration Protocol Morphine Sulfate 2 mg 03/02/19 09:36 03/02/19 10:01 Morphine Sulfate IVPB 2 mg Q4H PRN Administration PAIN LEVEL 7 - 10 Ondansetron HCl 4 mg 03/02/19 13:35 Zofran Injection IVPUSH Q6H PRN NAUSEA Oxycodone HCl 7.5 mg 03/02/19 13:35 Roxicodone - PO Q4H PRN PAIN LEVEL 4 - 6 Pantoprazole Sodium 40 mg 03/03/19 10:00 Protonix Iv IVPUSH DAILY [facility] Prochlorperazine Edisylate 10 mg 03/02/19 13:35 Compazine Injection - IVPB Q6H PRN NAUSEA AND/OR VOMITING Home Medications Medication Instructions Recorded Carvedilol 25 mg PO BID 10/22/14 Montelukast Na [Singulair -] 10 mg PO HS 10/22/14 Pregabalin [Lyrica -] 75 mg PO TID 10/22/14 Cholecalciferol (Vitamin D3) 50,000 unit PO WEEKLY 01/26/16 [Vitamin D3] Tamoxifen Citrate 20 mg PO DAILY 05/24/16 Albuterol 0.083% Nebulizer Page 1 amp NEB DAILY 09/18/17 [Ventolin 0.083% Nebulizer Soln -] Atorvastatin Ca [Lipitor] 20 mg PO HS 09/18/17 Budesonide/Formeterol Fumarate 1 inh PO BID 09/18/17 [SYMBICORT 160/4.5mcg -] Enalapril Maleate [Vasotec] 20 mg PO BID 09/18/17 Hydroxychloroquine Sulfate 400 mg PO BID 09/18/17 [Plaquenil] Mesalamine [Pentasa] 1,000 mg PO QID 09/18/17 Pantoprazole Sodium [Protonix] 40 mg PO DAILY 09/18/17 Folic Acid - 1 mg PO DAILY #30 tablet 09/26/17 Insulin Glargine,Hum.rec.anlog 28 unit SQ BID 11/26/18 [Lantus] Insulin Regular, Human [Humulin R 25 unit SQ BID 11/26/18 U-500 Kwikpen] Cephalexin [Keflex] 500 mg PO BID #10 capsule 11/28/18 Laboratory Tests 03/01/19 03/01/19 03/01/19 01:52 07:34 07:34 Hemoglobin A1c % 10.5 H Lactic Acid 3.3 H* 2.0 EKG shows NSR with rate of 97 and prolonged QTc - will avoid zofran and protonix. ASSESSMENT/PLAN: Pt is a 58 y/o F with pmhx of L breast CA (s/p radiation, currently on oral chemotherapy), insulin dependent DM, HTN, CKD, diabetic retinopathy, asthma, RA , fibromyalgia, chronic low back pain, and ventral hernia presenting to ED complaining of worsening nausea, multiple episodes of vomiting, diffuse abdominal pain and fatigue which began 3 days ago. # POD#1 s/p Incarcerated ventral hernia repair, presented with SBO, CT abdomen/ pelvis show SBO likely due to incarcerated ventral hernia. sx dr. hemphill , NPo # Sepsis on initial presentation : Tovar cx pending, ID on the case, IV Zosyn total of 3 doses # Lactic acidosis -IVF continue, repeat level is normal # T2DM Uncontrolled: hold home diabetes drugs , bgms with SS coverage , hemoglobi A1c 10.5 # Escar of the big toe: vascular evaluation and wound care Dr harry # [place] over CKD with diabetic nephropathy. (Cr 3.5, baseline 2.7)3.5-->today cr.3.6 , nephro consult appreciated # HTN: continue home meds # DVT prophylaxis - SCDs Laboratory Tests 03/01/19 03/01/19 03/01/19 01:52 01:52 07:34 BUN 38.7 H 40.4 H Creatinine 3.5 H 3.6 H Hemoglobin A1c % Lactic Acid 3.3 H* 03/01/19 03/01/19 07:34 07:34 BUN Creatinine Hemoglobin A1c % 10.5 H Lactic Acid 2.0
[2019-03-03] MEDS: morphine SULFATE 4 MG/ML VIAL IVPB PRN (03:18)
[2019-03-03] MEDS: INSULIN SLIDING SCALE (NOVOLOG) 1 VIAL SQ SCH ×2 (06:02→11:35)
[2019-03-03 08:18] LABS: BASO % 0.6 % (0-2.0); EOS % 5.4 % (0-4.5); HEMOGLOBIN 9.7 GM/dL (10.7-15.3); MCH 27.7 pg (25.7-33.7); MCHC 33.3 g/dl (32.0-36.0); MEAN CELL VOLUME 83.2 fl (80-96); MEAN PLT VOLUME 8.8 fl (7.5-11.1); PLATELET COUNT 166 K/MM3 (134-434); RBC 3.49 M/mm3 (3.60-5.2); RDW 14.9 % (11.6-15.6); WHITE BLOOD COUNT 8.1 K/mm3 (4.0-10.0)
[2019-03-03 08:57] LABS: ALBUMIN 2.5 g/dl (3.4-5.0); BILIRUBIN,TOTAL 0.4 mg/dL (0.2-1); BLOOD UREA NITROGEN 34.1 mg/dL (7-18); CALCIUM 8.7 mg/dL (8.5-10.1); CREATININE 3.4 mg/dL (0.55-1.3); MAGNESIUM 1.7 mg/dL (1.8-2.4); POTASSIUM 3.9 mmol/L (3.5-5.1); TOT PROT 6.4 g/dl (6.4-8.2)
[2019-03-03] MEDS ORDERED: PANTOPRAZOLE SODIUM 40 MG VIAL IVPUSH SCH (10:00)
[2019-03-03] MEDS ORDERED: ALBUTEROL SO4 0.083% IH SOL 2.5 MG/3 ML VIAL.NEB. NEB SCH (10:00)
[2019-03-03] MEDS: ENOXAPARIN NA (PORCINE) 40 MG/0.4 ML DISP.SYRIN SQ SCH (10:17)
--- NOTE | 2019-03-03 10:28 | PN ---
Progress Note (short form) - Note Progress Note: POD#2 Pt without any nasuea or emesis, No flatus or BM. Vital Signs Period Temp Pulse Resp BP Sys/Ronquillo Pulse Ox Last 24 Hr 97.9 F-98.8 F 80-108 18-20 102-147/55-91 99 GEN: A&0x3, NAD CV; RR mild tachycardia Lungs: CTA b/l anteriorly ABD: inc c/d/i. non-tender, non-disteded, obese. ABD binder in place LE: no calf tenderness or swelling noted b/l. CBC, BMP 03/03/19 07:03 03/03/19 07:03 A/p: 58 yo female s/p open repair of incarcerated ventral hernia with absorbable mesh, retrorectus block NGT removed, pt to remain npo for now. D/w Dr. Copeland. Contnue IVF while npo as per the medical team. Pt with elevated BUN/CRET, fluids as per renal OOB and ambulate DVT ppx with EDYTA/SCDs/ OOB with PT and lovenox 40mg SQ <Fabienne Gardner - Last Filed: 03/03/19 10:52> - Note Progress Note: Surgery pt seen and examined. agree with above. ngt removed. pt wants food. abd- soft, obese, nt, incision clean, Plan- trial of full liquids tomorrow if remains well. cont binder. cont jose. <Kvng Copeland - Last Filed: 03/03/19 11:35>
[2019-03-03] MEDS ORDERED: PT OWN MED DRAWER 7, Y5N ONE (10:53)
[2019-03-03] MEDS: BUDESONIDE/FORMETEROL FUMARATE 160/4.5 mcg INHALER IH SCH ×2 (11:11→21:02)
[2019-03-03] MEDS: BACITRACIN 15 GM TUBE TOPICAL OINTMENT TP SCH (11:11)
--- NOTE | 2019-03-03 13:13 | PN ---
Progress Note (short form) - Note Progress Note: Renal follow up for [place]/CKD Seen and examined at the bedside awake and alert continues to have abd pain that is helped with pain meds making urine no IVF no BM yet remains NPO Vital Signs Temperature 98.8 F 03/03/19 09:30 Pulse Rate 106 H 03/03/19 09:30 Respiratory Rate 18 03/03/19 09:30 Blood Pressure 147/91 03/03/19 09:30 O2 Sat by Pulse Oximetry (%) 99 03/02/19 20:37 Intake & Output 02/28/19 03/01/19 03/02/19 03/03/19 23:59 23:59 23:59 23:59 Intake Total 2700 1300 1300 Output Total 1155 1540 470 Balance 1545 -240 830 Weight 110.677 kg 119.884 kg NAD awake and alert neck supple, no JVD NGT in place RRR CTA Abd binder in place no LE edema, clubbing or cyanosis no skin rash CBC, BMP 03/03/19 07:03 03/03/19 07:03 Current Medications Acetaminophen (Ofirmev Injection -) 1,000 mg IVPB Q6H PRN PRN Reason: PAIN LEVEL 1-5 Last Admin: 03/02/19 15:24 Dose: 1,000 mg Albuterol Sulfate (Ventolin 0.083% Nebulizer Soln -) 1 amp NEB DAILY [facility] Bacitracin (Bacitracin -) 1 applic TP DAILY [facility] Last Admin: 03/03/19 11:11 Dose: 1 applic Budesonide/Formoterol Fumarate (Symbicort 160/4.5mcg -) 1 puff IH BID [facility] Last Admin: 03/03/19 11:11 Dose: 1 puff Enoxaparin Sodium (Lovenox -) 40 mg SQ DAILY [facility] Last Admin: 03/03/19 10:17 Dose: 40 mg Sodium Chloride (Normal Saline -) 1,000 mls @ 100 mls/hr IV ASDIR [facility] Last Admin: 03/02/19 13:00 Dose: 100 mls/hr Insulin Aspart (Novolog Vial Sliding Scale -) 1 vial SQ ACHS [facility]; Protocol Last Admin: 03/03/19 11:35 Dose: Not Given Morphine Sulfate (Morphine Sulfate) 2 mg IVPB Q4H PRN PRN Reason: PAIN LEVEL 7 - 10 Last Admin: 03/03/19 03:18 Dose: 2 mg Ondansetron HCl (Zofran Injection) 4 mg IVPUSH Q6H PRN PRN Reason: NAUSEA Oxycodone HCl (Roxicodone -) 7.5 mg PO Q4H PRN PRN Reason: PAIN LEVEL 4 - 6 Pantoprazole Sodium (Protonix Iv) 40 mg IVPUSH DAILY [facility] Last Admin: 03/03/19 10:17 Dose: 40 mg Prochlorperazine Edisylate (Compazine Injection -) 10 mg IVPB Q6H PRN PRN Reason: NAUSEA AND/OR VOMITING 58 year old woman with history of CKD stage 4 (unclear baseline Cr was ~2 in 2018, 2.9 to 4.3 in 2019, follows with senior software engineer analytics in [facility]), Breast Cancer s /p radiation therapy now on Tamoxifin, DM, Hypertension, Asthma presents with abdominal pain and found to have SBO and noted to have Cr of 3.6. 1. Acute kidney injury (differential: Volume depeltion vs. normotensive ATN ( ACEi) vs. progressive CKD) 2. CKD stage 4 3. Small bowel obstruction s/p surgical resection 4. Acute Anemia 5. Hypertension 6. DM on insulin Urine studies show FeNa of 3.5% (tubular injury), and UPCR of 2.4 Outpatient labs show Cr of 4 from 02/12/2019 Renal function improving as an inpaitient with saline no overt electrolyte or acid/base disturbance noted and pt is euvolemic on examination no acute indication for BRICK WHEELER continue supportive care Withhold ACEi given kidney injury Continue NS at 84cc per hour for additional 24 hours Thank you Riley Rashid DO
[2019-03-03] MEDS ORDERED: SODIUM CHLORIDE 1,000 ML IV SCH (13:15)
--- NOTE | 2019-03-03 13:37 | PATH ---
Surgical Pathology Report Patient Name: GABBY DEVRIES [facility]. Rec. #: [id number] /Age/Gender: 1960 (Age: 58) / F Account: [id number] Location: [address] [place] [address] Taken: 03/01/2019 Received: 03/01/2019 Reported: 03/03/2019 Physicians: Kvng Copeland M.D. Specimen(s) Received VENTRAL HERNIA SAC Clinical History Small bowel obstruction and incarcerated ventral hernia Final Diagnosis VENTRAL HERNIA SAC, REPAIR: FIBROMEMBRANOUS TISSUE COMPATIBLE WITH HERNIA SAC. Electronically Signed Albertina Larios M.D. Gross Description Received in formalin labeled "ventral hernia sac," is a 9.3 x 2.7 x 0.7 cm villagran-red portion of fibromembranous tissue, consistent with a hernia sac. Film Crew Member sections are submitted in one cassette. /03/01/201903/01/2019
--- NOTE | 2019-03-03 18:19 | PN ---
Physical Exam: SUBJECTIVE: Patient seen and examined 58 y/o F, pmh of DM on insulin, HTN, CKD, Asthma, RA, Left breast cancer s/p radiation, fibromyalgia, chronic low back pain, ventral hernia, presents with abdominal pain associated with distension, n/v of 3 day duration admitted for SBO 2/2 to ventral hernia. Currently, stable, afebrile, asymptomatic without any c/o or issues. Pt is doing well. NGT is removed. Denies f/c/n/v/d/sob/chest pain. OBJECTIVE: Vital Signs Period Temp Pulse Resp BP Sys/Ronquillo Pulse Ox Last 24 Hr 98.1 F-98.8 F 80-108 18-20 102-147/56-91 99 GENERAL: Awake, alert,. NGT removed EYES: Pupils equal, round and reactive to light, extraocular movements intact, sclera anicteric EARS, NOSE, THROAT: oropharynx clear without exudates. Dry mucous membranes. NECK: Normal range of motion, supple without lymphadenopathy LUNGS: Breath sounds equal, clear to auscultation bilaterally. No wheezes, and no crackles. HEART: Regular rate and rhythm, normal S1 and S2 without murmur. ABDOMEN: Soft, s/p surgery. Salazar appear intact, w/o drainage, erythema, purulence. Abdominal binder present. JOSE drain appears intact. Serosanginous jose drainage. UPPER EXTREMITIES: 2+ pulses, warm, well-perfused. No cyanosis. No peripheral edema. LOWER EXTREMITIES: 2+ pulses, warm, well-perfused. No calf tenderness. Black dry necrotic ulcer on side of R first toe. Non-tender. NEUROLOGICAL: Cranial nerves II-XII intact. Laboratory Results - last 24 hr CBC,CMP WBC 8.1 K/mm3 (4.0-10.0) 03/03/19 07:03 RBC 3.49 M/mm3 (3.60-5.2) L 03/03/19 07:03 Hgb 9.7 GM/dL (10.7-15.3) L 03/03/19 07:03 Hct 29.0 % (32.4-45.2) L 03/03/19 07:03 MCV 83.2 fl (80-96) 03/03/19 07:03 MCH 27.7 pg (25.7-33.7) 03/03/19 07:03 MCHC 33.3 g/dl (32.0-36.0) 03/03/19 07:03 RDW 14.9 % (11.6-15.6) 03/03/19 07:03 Plt Count 166 K/MM3 (134-434) 03/03/19 07:03 MPV 8.8 fl (7.5-11.1) 03/03/19 07:03 Absolute Neuts (auto) 6.1 K/mm3 (1.5-8.0) 03/03/19 07:03 Neutrophils % 76.0 % (42.8-82.8) 03/03/19 07:03 Lymphocytes % 11.0 % (8-40) 03/03/19 07:03 Monocytes % 7.0 % (3.8-10.2) 03/03/19 07:03 Eosinophils % 5.4 % (0-4.5) H D 03/03/19 07:03 Basophils % 0.6 % (0-2.0) 03/03/19 07:03 Nucleated RBC % 0 % (0-0) 03/03/19 07:03 Sodium 146 mmol/L (136-145) H 03/03/19 07:03 Potassium 3.9 mmol/L (3.5-5.1) 03/03/19 07:03 Chloride 117 mmol/L (98-107) H 03/03/19 07:03 Carbon Dioxide 23 mmol/L (21-32) 03/03/19 07:03 Anion Gap 6 MMOL/L (8-16) L 03/03/19 07:03 BUN 34.1 mg/dL (7-18) H 03/03/19 07:03 Creatinine 3.4 mg/dL (0.55-1.3) H 03/03/19 07:03 Est GFR (CKD-EPI)AfAm 16.49 03/03/19 07:03 Est GFR (CKD-EPI)NonAf 14.23 03/03/19 07:03 POC Glucometer 137 UNITS (80-120) 03/03/19 11:21 Random Glucose 182 mg/dL (74-106) H 03/03/19 07:03 Hemoglobin A1c % 10.5 % (4.2-6.3) H 03/01/19 07:34 Lactic Acid 2.0 mmol/L (0.4-2.0) 03/01/19 07:34 Calcium 8.7 mg/dL (8.5-10.1) 03/03/19 07:03 Phosphorus 3.0 mg/dL (2.5-4.9) 03/03/19 07:03 Magnesium 1.7 mg/dL (1.8-2.4) L 03/03/19 07:03 Total Bilirubin 0.4 mg/dL (0.2-1) 03/03/19 07:03 AST 30 U/L (15-37) 03/03/19 07:03 ALT 45 U/L (13-61) 03/03/19 07:03 Alkaline Phosphatase 82 U/L (45-117) 03/03/19 07:03 Creatine Kinase 97 U/L (26-192) 03/01/19 01:52 Troponin I < 0.02 ng/ml (0.00-0.05) 03/01/19 01:52 Total Protein 6.4 g/dl (6.4-8.2) 03/03/19 07:03 Albumin 2.5 g/dl (3.4-5.0) L 03/03/19 07:03 Lipase 89 U/L (73-393) 03/01/19 01:52 Active Medications Current Medications Acetaminophen (Ofirmev Injection -) 1,000 mg IVPB Q6H PRN PRN Reason: PAIN LEVEL 1-5 Last Admin: 03/02/19 15:24 Dose: 1,000 mg Albuterol Sulfate (Ventolin 0.083% Nebulizer Soln -) 1 amp NEB DAILY [facility] Bacitracin (Bacitracin -) 1 applic TP DAILY [facility] Last Admin: 03/03/19 11:11 Dose: 1 applic Budesonide/Formoterol Fumarate (Symbicort 160/4.5mcg -) 1 puff IH BID [facility] Last Admin: 03/03/19 11:11 Dose: 1 puff Enoxaparin Sodium (Lovenox -) 40 mg SQ DAILY [facility] Last Admin: 03/03/19 10:17 Dose: 40 mg Sodium Chloride (Normal Saline -) 1,000 mls @ 83 mls/hr IV ASDIR [facility] Stop: 03/04/19 13:14 Insulin Aspart (Novolog Vial Sliding Scale -) 1 vial SQ [facility]; Protocol Last Admin: 03/03/19 11:35 Dose: Not Given Morphine Sulfate (Morphine Sulfate) 2 mg IVPB Q4H PRN PRN Reason: PAIN LEVEL 7 - 10 Last Admin: 03/03/19 03:18 Dose: 2 mg Ondansetron HCl (Zofran Injection) 4 mg IVPUSH Q6H PRN PRN Reason: NAUSEA Oxycodone HCl (Roxicodone -) 7.5 mg PO Q4H PRN PRN Reason: PAIN LEVEL 4 - 6 Pantoprazole Sodium (Protonix Iv) 40 mg IVPUSH DAILY [facility] Last Admin: 03/03/19 10:17 Dose: 40 mg Prochlorperazine Edisylate (Compazine Injection -) 10 mg IVPB Q6H PRN PRN Reason: NAUSEA AND/OR VOMITING Home Medications Medication Instructions Recorded Carvedilol 25 mg PO BID 10/22/14 Montelukast Na [Singulair -] 10 mg PO HS 10/22/14 Pregabalin [Lyrica -] 75 mg PO TID 10/22/14 Cholecalciferol (Vitamin D3) 50,000 unit PO WEEKLY 01/26/16 [Vitamin D3] Tamoxifen Citrate 20 mg PO DAILY 05/24/16 Albuterol 0.083% Nebulizer Page 1 amp NEB DAILY 09/18/17 [Ventolin 0.083% Nebulizer Soln -] Atorvastatin Ca [Lipitor] 20 mg PO HS 09/18/17 Budesonide/Formeterol Fumarate 1 inh PO BID 09/18/17 [SYMBICORT 160/4.5mcg -] Enalapril Maleate [Vasotec] 20 mg PO BID 09/18/17 Hydroxychloroquine Sulfate 400 mg PO BID 09/18/17 [Plaquenil] Mesalamine [Pentasa] 1,000 mg PO QID 09/18/17 Pantoprazole Sodium [Protonix] 40 mg PO DAILY 09/18/17 Folic Acid - 1 mg PO DAILY #30 tablet 09/26/17 Insulin Glargine,Hum.rec.anlog 28 unit SQ BID 11/26/18 [Lantus] Insulin Regular, Human [Humulin R 25 unit SQ BID 11/26/18 U-500 Kwikpen] Atorvastatin Ca [Lipitor] 20 mg PO HS 03/01/19 Duloxetine HCl 20 mg PO DAILY 03/01/19 Potassium Chloride 1 tab PO DAILY 03/01/19 ASSESSMENT/PLAN: 58 y/o F, pmh of DM on insulin, HTN, CKD, Asthma, RA, Left breast cancer s/p radiation, fibromyalgia, chronic low back pain, ventral hernia, presents with abdominal pain associated with distension, n/v of 3 day duration admitted for SBO 2/2 to ventral hernia #SBO 2/2 to incarcerated ventral hernia EKG- NSR with rate of 97 and prolonged QTc 482 Avoid zofran and protonix. Pain control- IV morphine 2mg Q4H, oxycodone 7.5 mg Q4H PO, Ofiramev 1000mg Q6 PRN As per Surgery Keep NPO today Liquid diet tomorrow Consider Discharge home JOSE drain will likely remain for 1 week and removed outpt at the office #CKD/ [place] likely due to Diabetic nephropathy avoid nephrotoxic agents such as NSAIDS, aminoglycosides, contrast dyes As per Nephro consult: FeNa of 3.5% (tubular injury), and UPCR of 2.4 Keep MAP > 65, pt euvolemic, no need for [employer] Withhold ACEi given kidney injury if BP > 160/100 can consider addition of IV hydralazine or labetalol Continue NS at 84cc per hour for additional 24 hours Outpatient labs show Cr of 4 from 02/12/2019 #Hypoalbuminemia- monitor albumin adequate diet #DM HbA1c- 10.5 BGM ACHS ISS #HTN Hold home meds- enalapril #FEN NS at 84cc for 24hrs # DVT PPx Lovenox Dispo- control pain, clear liquids tomorrow, f/u w/ surgery on d/c Visit type - Emergency Visit Emergency Visit: Yes ED Registration Date: 03/01/19 Care time: The patient presented to the Emergency Department on the above date and was hospitalized for further evaluation of their emergent condition. - New Patient This patient is new to me today: Yes Date on this admission: 03/03/19 - Critical Care Critical Care patient: No - Discharge Referral Referred to [facility] Med P.C.: No ATTENDING PHYSICIAN STATEMENT I saw and evaluated the patient. I reviewed the resident's note and discussed the case with the resident. I agree with the resident's findings and plan as documented. SUBJECTIVE: OBJECTIVE: ASSESSMENT AND PLAN:
--- NOTE | 2019-03-03 19:35 | PN ---
Teaching Attending Note Name of Resident: Albertina Martin ATTENDING PHYSICIAN STATEMENT I saw and evaluated the patient. I reviewed the resident's note and discussed the case with the resident. I agree with the resident's findings and plan as documented. SUBJECTIVE:seen around 12 pm no SOB , has Abd pain, did ot pass gas yet. No N/v . NGT was removed today OBJECTIVE: NAD, dry MM. Lungs: bibasilar crackles Abd: soft, distended, TTP in all quadrants. lower Mid line surgical wound with ivis, with n o discharge. ISHAAN with bloody liquid CV: RRR, no MRG Chest wall with mid line bruise LE : trace edema ASSESSMENT AND PLAN: 58 y/o lady with h.o DM, CKD4 , HTN, RA, retinopathy, asthma, L breast cancer s/ p Rtx , fibromyalgia, ventral hernia, low back pain, and other medical problems who presented with abd pain and was found to have SBO 1-SBO 2-Incarcerated abd wall hernia 3-[place] on CKD. 4- L breast mass. h/o L breast cancer 5- SIRS on admission . no signs of infection. 6- DM plan : - cont IVF - cont NPO till am - f/u as out pt on L breast mass - cont SSI - cont to hold ACEI - dc HS coverage of SSI - no need for Abx - lovenox
[2019-03-03] MEDS: ACETAMINOPHEN 1000 MG/100 ML VIAL (NON FORMULARY) IVPB PRN (21:09)
[2019-03-04] MEDS ORDERED: SODIUM CHLORIDE 1,000 ML IV SCH ×2 (05:30→14:45)
[2019-03-04] MEDS: INSULIN SLIDING SCALE (NOVOLOG) 1 VIAL SQ SCH ×3 (06:08→17:05)
[2019-03-04 08:55] LABS: BASO % 0.7 % (0-2.0); EOS % 4.8 % (0-4.5); HEMATOCRIT 28.1 % (32.4-45.2); HEMOGLOBIN 9.1 GM/dL (10.7-15.3); LYMPH % 13.7 % (8-40); MCHC 32.3 g/dl (32.0-36.0); MEAN CELL VOLUME 83.6 fl (80-96); MEAN PLT VOLUME 8.3 fl (7.5-11.1); NEUT % 73.8 % (42.8-82.8); PLATELET COUNT 150 K/MM3 (134-434); RBC 3.36 M/mm3 (3.60-5.2); WHITE BLOOD COUNT 6.9 K/mm3 (4.0-10.0)
[2019-03-04 09:22] LABS: ALBUMIN 2.4 g/dl (3.4-5.0); BILIRUBIN,TOTAL 0.3 mg/dL (0.2-1); MAGNESIUM 1.7 mg/dL (1.8-2.4); PHOSPHOROUS 2.7 mg/dL (2.5-4.9); POTASSIUM 3.8 mmol/L (3.5-5.1); TOT PROT 6.4 g/dl (6.4-8.2)
[2019-03-04] MEDS: ENOXAPARIN NA (PORCINE) 40 MG/0.4 ML DISP.SYRIN SQ SCH (09:48)
[2019-03-04] MEDS: PANTOPRAZOLE 40 MG TABLET PO SCH (09:49)
[2019-03-04] MEDS: BUDESONIDE/FORMETEROL FUMARATE 160/4.5 mcg INHALER IH SCH ×2 (09:51→21:14)
[2019-03-04] MEDS: BACITRACIN 15 GM TUBE TOPICAL OINTMENT TP SCH (09:52)
[2019-03-04] MEDS ORDERED: MAGNESIUM SULF 50% (8.12 MEQ/2 ML-1 GM VIAL) IVPB ONE (13:52)
--- NOTE | 2019-03-04 14:56 | PN ---
Progress Note (short form) - Note Progress Note: Renal follow up for [place]/CKD Seen and examined at the bedside awake and alert tolerating liquid diet no sob, cp, fever or chills making urine Vital Signs Temperature 97.9 F 03/04/19 13:47 Pulse Rate 94 H 03/04/19 13:47 Respiratory Rate 20 03/04/19 13:47 Blood Pressure 156/79 03/04/19 13:47 O2 Sat by Pulse Oximetry (%) 94 L 03/04/19 09:00 Intake & Output 03/01/19 03/02/19 03/03/19 03/04/19 23:59 23:59 23:59 23:59 Intake Total 2700 1300 1400 1210 Output Total 1155 1540 1795 30 Balance 1545 -240 -395 1180 Weight 119.884 kg NAD awake and alert neck supple, no JVD NGT in place RRR CTA Abd binder in place no LE edema, clubbing or cyanosis no skin rash CBC, BMP 03/04/19 08:27 03/04/19 08:27 Current Medications Albuterol Sulfate (Ventolin 0.083% Nebulizer Soln -) 1 amp NEB DAILY [facility] Bacitracin (Bacitracin -) 1 applic TP DAILY [facility] Last Admin: 03/04/19 09:52 Dose: 1 applic Budesonide/Formoterol Fumarate (Symbicort 160/4.5mcg -) 1 puff IH BID [facility] Last Admin: 03/04/19 09:51 Dose: 1 puff Enoxaparin Sodium (Lovenox -) 40 mg SQ DAILY [facility] Last Admin: 03/04/19 09:48 Dose: 40 mg Sodium Chloride (Normal Saline -) 1,000 mls @ 100 mls/hr IV ASDIR [facility] Insulin Aspart (Novolog Vial Sliding Scale -) 1 vial SQ TIDAC [facility]; Protocol Last Admin: 03/04/19 11:29 Dose: 6 units Morphine Sulfate (Morphine Sulfate) 2 mg IVPB Q4H PRN PRN Reason: PAIN LEVEL 7 - 10 Last Admin: 03/03/19 03:18 Dose: 2 mg Ondansetron HCl (Zofran Injection) 4 mg IVPUSH Q6H PRN PRN Reason: NAUSEA Oxycodone HCl (Roxicodone -) 7.5 mg PO Q4H PRN PRN Reason: PAIN LEVEL 4 - 6 Pantoprazole Sodium (Protonix -) 40 mg PO DAILY [facility] Last Admin: 03/04/19 09:49 Dose: 40 mg Prochlorperazine Edisylate (Compazine Injection -) 10 mg IVPB Q6H PRN PRN Reason: NAUSEA AND/OR VOMITING 58 year old woman with history of CKD stage 4 (unclear baseline Cr was ~2 in 2018, 2.9 to 4.3 in 2019, follows with regulatory lead in [facility]), Breast Cancer s /p radiation therapy now on Tamoxifin, DM, Hypertension, Asthma presents with abdominal pain and found to have SBO and noted to have Cr of 3.6. 1. Acute kidney injury (differential: Volume depeltion vs. normotensive ATN ( ACEi) vs. progressive CKD) 2. CKD stage 4 3. Small bowel obstruction s/p surgical resection 4. Acute Anemia 5. Hypertension 6. DM on insulin Renal function improving Urine studies show FeNa of 3.5% (tubular injury), and UPCR of 2.4 Outpatient labs show Cr of 4 from 02/12/2019 no overt electrolyte or acid/base disturbance noted and pt is euvolemic on examination no acute indication for [employer] continue supportive care Withhold ACEi given kidney injury Trend renal function with oral intake alone advance diet as per surgery recs Thank you Riley Rashid DO
[2019-03-04] MEDS: oxyCODONE HCL 5 MG TABLET PO PRN ×2 (16:04→23:00)
--- NOTE | 2019-03-04 19:14 | PN ---
Physical Exam: SUBJECTIVE: Patient seen and examined 58 y/o F, pmh of DM on insulin, HTN, CKD, Asthma, RA, Left breast cancer s/p radiation, fibromyalgia, chronic low back pain, ventral hernia, presents with abdominal pain associated with distension, n/v of 3 day duration admitted for SBO 2/2 to ventral hernia. Today pt is doing well. NGT out and tolerating po food. Afebrile and asymptomatic. Pt passed gas. Urinated. Denies f/c/n/v/d/sob/ chest pain. OBJECTIVE: Vital Signs Period Temp Pulse Resp BP Sys/Ronquillo Pulse Ox Last 24 Hr 97.1 F-98.7 F 83-96 18-86 115-162/58-84 94-98 GENERAL: Awake, alert,. NGT removed EYES: Pupils equal, round and reactive to light, extraocular movements intact, sclera anicteric EARS, NOSE, THROAT: oropharynx clear without exudates. Dry mucous membranes. NECK: Normal range of motion, supple without lymphadenopathy LUNGS: Breath sounds equal, clear to auscultation bilaterally. No wheezes, and no crackles. HEART: Regular rate and rhythm, normal S1 and S2 without murmur. ABDOMEN: Soft, s/p surgery. Salazar appear intact, w/o drainage, erythema, purulence. Abdominal binder present. JOSE drain appears intact. Serosanginous jose drainage. UPPER EXTREMITIES: 2+ pulses, warm, well-perfused. No cyanosis. No peripheral edema. LOWER EXTREMITIES: 2+ pulses, warm, well-perfused. No calf tenderness. Black dry necrotic ulcer on side of R first toe. Non-tender. NEUROLOGICAL: Cranial nerves II-XII intact. Laboratory Results - last 24 hr CBC,CMP WBC 6.9 K/mm3 (4.0-10.0) 03/04/19 08:27 RBC 3.36 M/mm3 (3.60-5.2) L 03/04/19 08:27 Hgb 9.1 GM/dL (10.7-15.3) L 03/04/19 08:27 Hct 28.1 % (32.4-45.2) L 03/04/19 08:27 MCV 83.6 fl (80-96) 03/04/19 08:27 MCH 27.0 pg (25.7-33.7) 03/04/19 08:27 MCHC 32.3 g/dl (32.0-36.0) 03/04/19 08:27 RDW 15.0 % (11.6-15.6) 03/04/19 08:27 Plt Count 150 K/MM3 (134-434) 03/04/19 08:27 MPV 8.3 fl (7.5-11.1) 03/04/19 08:27 Absolute Neuts (auto) 5.1 K/mm3 (1.5-8.0) 03/04/19 08:27 Neutrophils % 73.8 % (42.8-82.8) 03/04/19 08:27 Lymphocytes % 13.7 % (8-40) D 03/04/19 08:27 Monocytes % 7.0 % (3.8-10.2) 03/04/19 08:27 Eosinophils % 4.8 % (0-4.5) H 03/04/19 08:27 Basophils % 0.7 % (0-2.0) 03/04/19 08:27 Nucleated RBC % 0 % (0-0) 03/04/19 08:27 Sodium 147 mmol/L (136-145) H 03/04/19 08:27 Potassium 3.8 mmol/L (3.5-5.1) 03/04/19 08:27 Chloride 118 mmol/L (98-107) H 03/04/19 08:27 Carbon Dioxide 23 mmol/L (21-32) 03/04/19 08:27 Anion Gap 6 MMOL/L (8-16) L 03/04/19 08:27 BUN 26.0 mg/dL (7-18) H 03/04/19 08:27 Creatinine 3.0 mg/dL (0.55-1.3) H 03/04/19 08:27 Est GFR (CKD-EPI)AfAm 19.19 03/04/19 08:27 Est GFR (CKD-EPI)NonAf 16.56 03/04/19 08:27 POC Glucometer 233 UNITS (80-120) 03/04/19 16:21 Random Glucose 136 mg/dL (74-106) H 03/04/19 08:27 Hemoglobin A1c % 10.5 % (4.2-6.3) H 03/01/19 07:34 Lactic Acid 2.0 mmol/L (0.4-2.0) 03/01/19 07:34 Calcium 9.0 mg/dL (8.5-10.1) 03/04/19 08:27 Phosphorus 2.7 mg/dL (2.5-4.9) 03/04/19 08:27 Magnesium 1.7 mg/dL (1.8-2.4) L 03/04/19 08:27 Total Bilirubin 0.3 mg/dL (0.2-1) 03/04/19 08:27 AST 30 U/L (15-37) 03/04/19 08:27 ALT 43 U/L (13-61) 03/04/19 08:27 Alkaline Phosphatase 79 U/L (45-117) 03/04/19 08:27 Creatine Kinase 97 U/L (26-192) 03/01/19 01:52 Troponin I < 0.02 ng/ml (0.00-0.05) 03/01/19 01:52 Total Protein 6.4 g/dl (6.4-8.2) 03/04/19 08:27 Albumin 2.4 g/dl (3.4-5.0) L 03/04/19 08:27 Lipase 89 U/L (73-393) 03/01/19 01:52 Active Medications Current Medications Albuterol Sulfate (Ventolin 0.083% Nebulizer Soln -) 1 amp NEB DAILY [facility] Bacitracin (Bacitracin -) 1 applic TP DAILY [facility] Last Admin: 03/04/19 09:52 Dose: 1 applic Budesonide/Formoterol Fumarate (Symbicort 160/4.5mcg -) 1 puff IH BID [facility] Last Admin: 03/04/19 09:51 Dose: 1 puff Enoxaparin Sodium (Lovenox -) 40 mg SQ DAILY [facility] Last Admin: 03/04/19 09:48 Dose: 40 mg Insulin Aspart (Novolog Vial Sliding Scale -) 1 vial SQ TIDAC [facility]; Protocol Last Admin: 03/04/19 17:05 Dose: 4 units Morphine Sulfate (Morphine Sulfate) 2 mg IVPB Q4H PRN PRN Reason: PAIN LEVEL 7 - 10 Last Admin: 03/03/19 03:18 Dose: 2 mg Ondansetron HCl (Zofran Injection) 4 mg IVPUSH Q6H PRN PRN Reason: NAUSEA Oxycodone HCl (Roxicodone -) 7.5 mg PO Q4H PRN PRN Reason: PAIN LEVEL 4 - 6 Last Admin: 03/04/19 16:04 Dose: 7.5 mg Pantoprazole Sodium (Protonix -) 40 mg PO DAILY [facility] Last Admin: 03/04/19 09:49 Dose: 40 mg Prochlorperazine Edisylate (Compazine Injection -) 10 mg IVPB Q6H PRN PRN Reason: NAUSEA AND/OR VOMITING Home Medications Medication Instructions Recorded Carvedilol 25 mg PO BID 10/22/14 Montelukast Na [Singulair -] 10 mg PO HS 10/22/14 Pregabalin [Lyrica -] 75 mg PO TID 10/22/14 Cholecalciferol (Vitamin D3) 50,000 unit PO WEEKLY 01/26/16 [Vitamin D3] Tamoxifen Citrate 20 mg PO DAILY 05/24/16 Albuterol 0.083% Nebulizer Page 1 amp NEB DAILY 09/18/17 [Ventolin 0.083% Nebulizer Soln -] Atorvastatin Ca [Lipitor] 20 mg PO HS 09/18/17 Budesonide/Formeterol Fumarate 1 inh PO BID 09/18/17 [SYMBICORT 160/4.5mcg -] Enalapril Maleate [Vasotec] 20 mg PO BID 09/18/17 Hydroxychloroquine Sulfate 400 mg PO BID 09/18/17 [Plaquenil] Mesalamine [Pentasa] 1,000 mg PO QID 09/18/17 Pantoprazole Sodium [Protonix] 40 mg PO DAILY 09/18/17 Folic Acid - 1 mg PO DAILY #30 tablet 09/26/17 Insulin Glargine,Hum.rec.anlog 28 unit SQ BID 11/26/18 [Lantus] Insulin Regular, Human [Humulin R 25 unit SQ BID 11/26/18 U-500 Kwikpen] Atorvastatin Ca [Lipitor] 20 mg PO HS 03/01/19 Duloxetine HCl 20 mg PO DAILY 03/01/19 Potassium Chloride 1 tab PO DAILY 03/01/19 ASSESSMENT/PLAN: 58 y/o F, pmh of DM on insulin, HTN, CKD, Asthma, RA, Left breast cancer s/p radiation, fibromyalgia, chronic low back pain, ventral hernia, presents with abdominal pain associated with distension, n/v of 3 day duration admitted for SBO 2/2 to ventral hernia #SBO 2/2 to incarcerated ventral hernia tolerating Liquid liquid diet today Consider Discharge after speaking with surgery JOSE drain will likely remain for 1 week and removed outpt at the office #CKD/ [place] likely due to Diabetic nephropathy Withhold ACEi given kidney injury #Hypoalbuminemia- monitor albumin adequate diet #DM HbA1c- 10.5 BGM ACHS ISS #HTN Hold home meds- enalapril #Breast mass CT shows a mass- pt f/u with Dr Zambrano at [place]. Last [place] 3 months ago #FEN Full liquid diabetic diet # DVT PPx Lovenox Dispo- control pain, clear liquids tomorrow, Visit type - Emergency Visit Emergency Visit: Yes ED Registration Date: 03/01/19 Care time: The patient presented to the Emergency Department on the above date and was hospitalized for further evaluation of their emergent condition. - New Patient This patient is new to me today: Yes Date on this admission: 03/04/19 - Critical Care Critical Care patient: No - Discharge Referral Referred to [facility] Med P.C.: No ATTENDING PHYSICIAN STATEMENT I saw and evaluated the patient. I reviewed the resident's note and discussed the case with the resident. I agree with the resident's findings and plan as documented. SUBJECTIVE: OBJECTIVE: ASSESSMENT AND PLAN:
--- NOTE | 2019-03-04 19:28 | PN ---
Teaching Attending Note Name of Resident: Albertina Martin ATTENDING PHYSICIAN STATEMENT I saw and evaluated the patient. I reviewed the resident's note and discussed the case with the resident. I agree with the resident's findings and plan as documented. SUBJECTIVE: seen around 11 am minimal Abd pain, fever or chills. No N/V. passed gas . OBJECTIVE: NAD, MMM Lungs:decreased breath sounds a t bases Abd: soft, distended, TTP in all quadrants. lower Mid line surgical wound with ivis, with no discharge. ISHAAN with bloody liquid CV: RRR, no MRG Chest wall with improved mid line bruise LE: trace edema Breasts: L breast with medial lower area with 2 cm hard mass under a scar. no dischagre form nipple. No LAP in axilla. discolored atrophic skin on L breast. R breast with no masses or skin changes. No LAP in axilla ASSESSMENT AND PLAN: 58 y/o lady with h.o DM, CKD4 , HTN, RA, retinopathy, asthma, L breast cancer s/ p Rtx , fibromyalgia, ventral hernia, low back pain, and other medical problems who presented with abd pain and was found to have SBO 1-SBO 2-Incarcerated abd wall hernia 3-[place] on CKD. 4- L breast mass. h/o L breast cancer 5- SIRS on admission. no signs of infection. 6- DM plan : - cont IVF - full liquid diet - renal note appreciated. BL cr 4 on 03/15 - f/u as out pt on L breast mass. She was made aware that mass was bigger than before. she has mammogram scheduled shortly. f/u with Onc - cont SSI - add 10 of levemir HS . can uptitrate as needed - cont to hold ACEI - lovenox - team discussed with anesthesiologist. No cardiac arrrest during OR but had to be reintubated.
[2019-03-04] MEDS: INSULIN (LEVEMIR) 100 UNITS/ML UNITS SQ SCH (21:13)
--- NOTE | 2019-03-04 23:06 | PN ---
Progress Note (short form) - Note Progress Note: I was contacted by the Nurse because of complaint of chest pain. Pt explains that the pain was midchest and radiated upper to the "middle of her neck". By the time of assessment, the pain had resolved according to the patient which was less than 5 min time. Pt recently had NG tube removal. Pt is also S/P abdominal hernia repair. VS 97.9F 171/78 91bpm 20 General: anxious Lung: VBS b/l. chest pain reproducible Heart: RRR no MRG Abdomen: binder on, obese abdomen, tender from recent surgery Neuro: motor and sensation grossly intact A&P: Chest pain most likely from NG tube recently removed and was reproducible on physical Exam ( patient has Hx of fibromyalgia) Plan: trop and EKG just to r/o ACS in the setting of risk factors though unlikely Trop 0.04. last document was < 0.02 however currently with elevated BUN/Cr 26/3 Pt currently asymptomatic on reassessment
[2019-03-05] MEDS ORDERED: MELATONIN 5 MG TABLETS PO ONE (02:45)
[2019-03-05] MEDS ORDERED: INSULIN (NOVOLOG) ASPART 100 UNITS/ML 10ML VIAL ONE ×3 (06:17→17:27)
[2019-03-05] MEDS: INSULIN SLIDING SCALE (NOVOLOG) 1 VIAL SQ SCH ×3 (06:18→17:19)
[2019-03-05 08:58] LABS: BLOOD UREA NITROGEN 19.6 mg/dL (7-18); CALCIUM 9.2 mg/dL (8.5-10.1); CREATININE 2.7 mg/dL (0.55-1.3); MAGNESIUM 1.9 mg/dL (1.8-2.4); PHOSPHOROUS 2.2 mg/dL (2.5-4.9); POTASSIUM 3.6 mmol/L (3.5-5.1)
[2019-03-05 09:17] LABS: HEMOGLOBIN 9.2 GM/dL (10.7-15.3); MCH 27.1 pg (25.7-33.7); MCHC 32.8 g/dl (32.0-36.0); MEAN CELL VOLUME 82.5 fl (80-96); PLATELET COUNT 158 K/MM3 (134-434); RBC 3.39 M/mm3 (3.60-5.2); RDW 14.9 % (11.6-15.6); WHITE BLOOD COUNT 6.7 K/mm3 (4.0-10.0)
--- NOTE | 2019-03-05 09:20 | PN ---
Progress Note (short form) - Note Progress Note: General Surgery 58yo F s/p ventral hernia repair with mesh for incarcerated hernia and SBO. Pt states abd pain is controlled. Pt is tolerating diet, had BM yesterday. Pt denies fever, chills, n/v. Last Vital Signs Temp Pulse Resp BP Pulse Ox 99.1 F 77 20 154/75 94 L 03/05/19 05:39 03/05/19 05:39 03/05/19 05:39 03/05/19 05:39 03/04/19 21:00 CBC, BMP 03/05/19 07:55 PE: Gen: A&O x 3 Resp: breathing comfortably Abd: soft, nondistended, mild diffuse tenderness, drain in place with serosanguinous drainage, incision clean no erythema or drainage. Problem List - Problems (1) SBO (small bowel obstruction) Assessment/Plan: Plan -pt is cleared from surgical standpoint for discharge, keep ISHAAN drain in til follow up with Dr. Copeland next week. -wear abd binder -pain control. Case discussed with Dr. Copeland who agrees with plan Code(s): K56.609 - UNSP INTESTNL OBST, UNSP TO PARTIAL VERSUS COMPLETE OBST
[2019-03-05] MEDS: PANTOPRAZOLE 40 MG TABLET PO SCH (10:08)
[2019-03-05] MEDS: ENOXAPARIN NA (PORCINE) 40 MG/0.4 ML DISP.SYRIN SQ SCH (10:08)
[2019-03-05] MEDS: BACITRACIN 15 GM TUBE TOPICAL OINTMENT TP SCH (10:09)
[2019-03-05] MEDS: BUDESONIDE/FORMETEROL FUMARATE 160/4.5 mcg INHALER IH SCH ×2 (10:20→21:23)
[2019-03-05] MEDS ORDERED: ALBUTEROL SO4 0.083% IH SOL 2.5 MG/3 ML VIAL.NEB. NEB PRN (10:36)
[2019-03-05] MEDS: ACETAMINOPHEN 325 MG TABLET (FP) PO PRN (12:20)
[2019-03-05] MEDS: oxyCODONE HCL 5 MG TABLET PO PRN (12:21)
--- NOTE | 2019-03-05 15:55 | PN ---
Progress Note (short form) - Note Progress Note: Renal follow up for [place]/CKD Seen and examined at the bedside awake and alert no acute complaints did have some abdominal pain today making urine no sob, cp, fever or chills Vital Signs Temperature 98.7 F 03/05/19 09:58 Pulse Rate 84 03/05/19 09:58 Respiratory Rate 19 03/05/19 09:58 Blood Pressure 151/59 L 03/05/19 09:58 O2 Sat by Pulse Oximetry (%) 96 03/05/19 09:00 Intake & Output 03/02/19 03/03/19 03/04/19 03/05/19 23:59 23:59 23:59 23:59 Intake Total 1300 1400 1760 120 Output Total 1540 1795 30 Balance -240 -395 1730 120 NAD awake and alert neck supple, no JVD NGT in place RRR CTA Abd binder in place no LE edema, clubbing or cyanosis no skin rash CBC, BMP 03/05/19 09:07 03/05/19 07:55 Current Medications Acetaminophen (Tylenol -) 650 mg PO Q6H PRN PRN Reason: PAIN LEVEL 1 - 3 Last Admin: 03/05/19 12:20 Dose: 650 mg Albuterol Sulfate (Ventolin 0.083% Nebulizer Soln -) 1 amp NEB Q4H PRN PRN Reason: WHEEZING Bacitracin (Bacitracin -) 1 applic TP DAILY [facility] Last Admin: 03/05/19 10:09 Dose: 1 applic Budesonide/Formoterol Fumarate (Symbicort 160/4.5mcg -) 1 puff IH BID [facility] Last Admin: 03/05/19 10:20 Dose: 1 puff Enoxaparin Sodium (Lovenox -) 40 mg SQ DAILY [facility] Last Admin: 03/05/19 10:08 Dose: 40 mg Insulin Aspart (Novolog Vial Sliding Scale -) 1 vial SQ TIDAC [facility]; Protocol Last Admin: 03/05/19 12:12 Dose: 2 units Insulin Detemir (Levemir Vial) 10 units SQ HS [facility] Last Admin: 03/04/19 21:13 Dose: 10 units Ondansetron HCl (Zofran Injection) 4 mg IVPUSH Q6H PRN PRN Reason: NAUSEA Pantoprazole Sodium (Protonix -) 40 mg PO DAILY [facility] Last Admin: 03/05/19 10:08 Dose: 40 mg Prochlorperazine Edisylate (Compazine Injection -) 10 mg IVPB Q6H PRN PRN Reason: NAUSEA AND/OR VOMITING 58 year old woman with history of CKD stage 4 (unclear baseline Cr was ~2 in 2018, 2.9 to 4.3 in 2019, follows with director of conservation in [facility]), Breast Cancer s /p radiation therapy now on Tamoxifin, DM, Hypertension, Asthma presents with abdominal pain and found to have SBO and noted to have Cr of 3.6. 1. Acute kidney injury (differential: Volume depeltion vs. normotensive ATN ( ACEi) vs. progressive CKD) 2. CKD stage 4 3. Small bowel obstruction s/p surgical resection 4. Acute Anemia 5. Hypertension 6. DM on insulin Renal function improving, eGFR better then it wa an outpatient would continue to hold MAGALY until oral intake is back to baseline Urine studies show FeNa of 3.5% (tubular injury), and UPCR of 2.4 Outpatient labs show Cr of 4 from 02/12/2019 no overt electrolyte or acid/base disturbance noted and pt is euvolemic on examination continue supportive care advance diet as per surgery recs discharge planning as per primary team Thank you Riley Rashid DO
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
--- NOTE | 2019-03-05 17:51 | DS ---
Physical Exam: SUBJECTIVE: Patient seen and examined. Pt stable, afebrile, asymptomatic without any issues or c/o. OBJECTIVE: Vital Signs Period Temp Pulse Resp BP Sys/Ronquillo Pulse Ox Last 24 Hr 98.7 F-99.1 F 77-84 19-20 151-154/59-75 94-96 PHYSICAL EXAM GENERAL: The patient is awake, alert, and fully oriented, in no acute distress. HEAD: Normal with no signs of trauma. EYES: PERRL, extraocular movements intact, sclera anicteric, conjunctiva clear. ENT: Ears normal, nares patent, oropharynx clear without exudates, moist mucous membranes. NECK: Trachea midline, full range of motion, supple. LUNGS: Breath sounds equal, clear to auscultation bilaterally, no wheezes, no crackles, no accessory muscle use. HEART: Regular rate and rhythm, S1, S2 without murmur, rub or gallop. ABDOMEN: Soft, nontender, nondistended, normoactive bowel sounds, no guarding, no rebound, no hepatosplenomegaly, no masses. EXTREMITIES: 2+ pulses, warm, well-perfused, no edema. NEUROLOGICAL: Cranial nerves II through XII grossly intact. Normal speech, gait not observed. PSYCH: Normal mood, normal affect. SKIN: Warm, dry, normal turgor, no rashes or lesions noted. LABS Laboratory Results - last 24 hr 03/02/19 03/04/19 03/04/19 19:45 21:11 23:30 WBC RBC Hgb Hct MCV MCH MCHC RDW Plt Count MPV Sodium Potassium Chloride Carbon Dioxide Anion Gap BUN Creatinine Est GFR (CKD-EPI)AfAm Est GFR (CKD-EPI)NonAf POC Glucometer 251 Random Glucose Calcium Phosphorus Magnesium Creatine Kinase Troponin I 0.04 Urine Eosinophils None seen Current Medications Acetaminophen (Tylenol -) 650 mg PO Q6H PRN PRN Reason: PAIN LEVEL 1 - 3 Last Admin: 03/05/19 12:20 Dose: 650 mg Albuterol Sulfate (Ventolin 0.083% Nebulizer Soln -) 1 amp NEB Q4H PRN PRN Reason: WHEEZING Bacitracin (Bacitracin -) 1 applic TP DAILY [facility] Last Admin: 03/05/19 10:09 Dose: 1 applic Budesonide/Formoterol Fumarate (Symbicort 160/4.5mcg -) 1 puff IH BID [facility] Last Admin: 03/05/19 10:20 Dose: 1 puff Enoxaparin Sodium (Lovenox -) 40 mg SQ DAILY [facility] Last Admin: 03/05/19 10:08 Dose: 40 mg Insulin Aspart (Novolog Vial Sliding Scale -) 1 vial SQ TIDAC [facility]; Protocol Last Admin: 03/05/19 17:19 Dose: 4 units Insulin Detemir (Levemir Vial) 10 units SQ [facility] Last Admin: 03/04/19 21:13 Dose: 10 units Ondansetron HCl (Zofran Injection) 4 mg IVPUSH Q6H PRN PRN Reason: NAUSEA Pantoprazole Sodium (Protonix -) 40 mg PO DAILY [facility] Last Admin: 03/05/19 10:08 Dose: 40 mg Prochlorperazine Edisylate (Compazine Injection -) 10 mg IVPB Q6H PRN PRN Reason: NAUSEA AND/OR VOMITING Home Medications Medication Instructions Recorded Carvedilol 25 mg PO BID 10/22/14 Montelukast Na [Singulair -] 10 mg PO HS 10/22/14 Pregabalin [Lyrica -] 75 mg PO TID 10/22/14 Cholecalciferol (Vitamin D3) 50,000 unit PO WEEKLY 01/26/16 [Vitamin D3] Tamoxifen Citrate 20 mg PO DAILY 05/24/16 Albuterol 0.083% Nebulizer Page 1 amp NEB DAILY 09/18/17 [Ventolin 0.083% Nebulizer Soln -] Budesonide/Formeterol Fumarate 1 inh PO BID 09/18/17 [SYMBICORT 160/4.5mcg -] Hydroxychloroquine Sulfate 400 mg PO BID 09/18/17 [Plaquenil] Mesalamine [Pentasa] 1,000 mg PO QID 09/18/17 Pantoprazole Sodium [Protonix] 40 mg PO DAILY 09/18/17 Folic Acid - 1 mg PO DAILY #30 tablet 09/26/17 Insulin Glargine,Hum.rec.anlog 28 unit SQ BID 11/26/18 [Lantus] Insulin Regular, Human [Humulin R 25 unit SQ BID 11/26/18 U-500 Kwikpen] Atorvastatin Ca [Lipitor] 20 mg PO 03/01/19 Duloxetine HCl 20 mg PO DAILY 03/01/19 Acetaminophen [Tylenol .Regular 650 mg PO Q6H PRN #15 tablet 03/05/19 Strength -] Amlodipine Besylate [Norvasc -] 5 mg PO DAILY #30 tablet 03/05/19 Bacitracin - [Bacitracin Topical 1 applic TP DAILY #30 applic 03/05/19 Ointment -] HOSPITAL COURSE: Date of Admission:03/01/19 58 y/o F, pmh of DM on insulin, HTN, CKD, Asthma, RA, Left breast cancer s/p radiation, fibromyalgia, chronic low back pain, ventral hernia, presents with abdominal pain associated with distension, n/v of 3 day duration admitted for SBO 2/2 to ventral hernia. Pt was found to have acentral incarcerated hernia on CT a/p and required surgery. Pt was managed s/p surgery w/ pain meds, fluid and surgical wound care. Pt was stable except for a rapid response which was due to experience chest pain. however, pt was worked up with an EKG and she was stable w/ no acute issues. Pt was advanced on diet and discharged home w/ OC pain meds. Pt will need wound care for her left big toe eschar. Pt was advised to f/ u Dr. rivas or with Dr. harry upon d/c. Pt was also found to have a left beast mass on CT and advised to f/u with her breast physician outpt. EKG- NSR with rate of 97 and prolonged QTc [address] CT a/p- evident for SBO likely from an incarcerated ventral hernia CXR- large heart, unfolded aorta, congestive changes, possible left infiltrates #SBO 2/2 to incarcerated ventral hernia Consider Discharge after speaking with surgery JOHNNY drain will likely remain for 1 week and removed outpt at the office Date of Discharge: 03/05/19 Minutes to complete discharge: 35 Discharge Summary Problems reviewed: Yes Reason For Visit: SMALL BOWEL OBSTRUCTION Current Active Problems Incarcerated hernia of abdominal cavity (Acute) Condition: Improved - Instructions Diet, Activity, Other Instructions: You were admitted because you had a hernia. This hernia was twisted and not receiving blood supply. For this you had surgery to have the hernia removed. Post Operative Instructions Physical activity Resume your normal everyday activity as tolerated no heavy lifting or exercise until seen by your surgeon. You may walk unlimited amounts of and climb stairs. You may resume driving the car when you feel safe and comfortable behind the wheel. Wound care ABDOMINAL WOUND CARE: Sponge bath only. JOHNNY care. Wear abdominal binder. dry wound gently if wet RIGHT TOE WOUND CARE: apply biacitracin and dry gauze to wound. Follow up in wound clinic with Dr. Harry [phone] Diet There are no dietary restrictions. Eat healthy, high-fiber foods. Drink 6 to 8 glasses of liquid each day. This will assist in keeping your bowels are regular. Pain management You may take Tylenol or acetaminophen ..Do not exceed 3 grams of tylenol in 24hr Call Dr. Copeland for any of the following: Severe pain not relieved by medication Fever of 101 or higher Excessive bleeding or drainage on dressing Call the office for a post operative appointment for week of 03/08 for staple/ Johnny removal. please follow up with your oncologist regarding the breast mass in L breast ( bigger 3.8 cm now ) Please follow up Podiatry clinic- Dr. Rivas for the ulcer on your left toe in 1-2 weeks Please follow up with your primary care physician in 1 week. - do not take enalapril for now until assessed again by your kidney doctor . instead , take norvasc 5 mg daily ( this will be stopped when enalapril gets resumed again) - your sugar might be lower than your usual in the next few days. take 10 units of lantus twice a day for now, increase slowly to your usual dose if sugar is persistently elevated. - for Humulin R, inject your usual dose , only if sugar is > 270. - call your MD if you have any questions about your insulin. - check your sugar 3 times a day befoer each meal and take log to your primary in 1 week fro further instruction and communicate via phone if needed earlier - Avoid advil, ibuprofen, motrina dn similar products Referrals: Carloz Rivas MD [Staff Physician] - 1 Week Zachary Rogel MD [Primary Care Provider] - 1 Week Felix Harry DO [Staff Physician] - Kvng Copeland MD [Staff Physician] - 1 Week Disposition: HOME - Home Medications Comprehensive Discharge Medication List: Ambulatory Orders Carvedilol 25 mg PO BID 10/22/14 Montelukast Na [Singulair -] 10 mg PO HS 10/22/14 Pregabalin [Lyrica -] 75 mg PO TID 10/22/14 Cholecalciferol (Vitamin D3) [Vitamin D3] 50,000 unit PO WEEKLY 01/26/16 Tamoxifen Citrate 20 mg PO DAILY 05/24/16 Albuterol 0.083% Nebulizer Page [Ventolin 0.083% Nebulizer Soln -] 1 amp NEB DAILY 09/18/17 Budesonide/Formeterol Fumarate [SYMBICORT 160/4.5mcg -] 1 inh PO BID 09/18/17 Hydroxychloroquine Sulfate [Plaquenil] 400 mg PO BID 09/18/17 Mesalamine [Pentasa] 1,000 mg PO QID 09/18/17 Pantoprazole Sodium [Protonix] 40 mg PO DAILY 09/18/17 Folic Acid - 1 mg PO DAILY #30 tablet 09/26/17 Insulin Glargine,Hum.rec.anlog [Lantus] 28 unit SQ BID 11/26/18 Insulin Regular, Human [Humulin R U-500 Kwikpen] 25 unit SQ BID 11/26/18 Atorvastatin Ca [Lipitor] 20 mg PO HS 03/01/19 Duloxetine HCl 20 mg PO DAILY 03/01/19 Acetaminophen [Tylenol .Regular Strength -] 650 mg PO Q6H PRN #15 tablet Amlodipine Besylate [Norvasc -] 5 mg PO DAILY #30 tablet 03/05/19 Bacitracin - [Bacitracin Topical Ointment -] 1 applic TP DAILY #30 applic This patient is new to me today: Yes Date on this admission: 03/05/19 Emergency Visit: Yes ED Registration Date: 03/01/19 Care time: The patient presented to the Emergency Department on the above date and was hospitalized for further evaluation of their emergent condition. Critical Care patient: No - Discharge Referral Referred to [facility] Med P.C[facility] No ATTENDING PHYSICIAN STATEMENT I saw and evaluated the patient. I reviewed the resident's note and discussed the case with the resident. I agree with the resident's findings and plan as documented. SUBJECTIVE: OBJECTIVE: ASSESSMENT AND PLAN:
--- NOTE | 2019-03-05 18:52 | PN ---
Teaching Attending Note Name of Resident: Lang Major ATTENDING PHYSICIAN STATEMENT I saw and evaluated the patient. I reviewed the resident's note and discussed the case with the resident. I agree with the resident's findings and plan as documented. SUBJECTIVE: No fever or chills. No CASTILLO . No edema . tolerated diet. hd BM OBJECTIVE: NAD, MMM Lungs: CTAB Abd: soft, distended, TTP in all quadrants. lower Mid line surgical wound with ivis, with no discharge. ISHAAN with bloody liquid CV: RRR, no MRG Chest wall with improved mid line bruise. tender to palpation LE: trace edema . eschar on tip of R big toe. ASSESSMENT AND PLAN: 58 y/o lady with h.o DM, CKD4 , HTN, RA, retinopathy, asthma, L breast cancer s/ p Rtx , fibromyalgia, ventral hernia, low back pain, and other medical problems who presented with abd pain and was found to have SBO 1-SBO 2-Incarcerated abd wall hernia 3-[place] on CKD. 4- L breast mass. h/o L breast cancer 5- SIRS on admission. no signs of infection. 6- DM plan : - tolerated regular diet - dc home to follow up with sx . - avoid NSaids - hold enelapril at dc and use norvasc instead in mean time. when renal function improves, she can be started on enalapril - f/u with her sign maker - at ut will ask her ot increase her insulin slowly to avoid hypoglycemia as her po intake will improved . instructed to take 10 of lantus BID and increase slowly to her home dose of 28 bid also to take her Humulin R only if her sugar > 270 cont bacitracin and f/u with podiatry and wound care clinic , . dc home
[2019-03-05] MEDS: INSULIN (LEVEMIR) 100 UNITS/ML UNITS SQ SCH (21:23)
[2019-03-06 06:29] VITALS: TEMP 98.3
[2019-03-06] MEDS: INSULIN SLIDING SCALE (NOVOLOG) 1 VIAL SQ SCH ×2 (06:30→12:15)
[2019-03-06] MEDS: ACETAMINOPHEN 325 MG TABLET (FP) PO PRN (08:51)
[2019-03-06] MEDS ORDERED: oxyCODONE HCL 5 MG TABLET PO PRN (09:05)
--- NOTE | 2019-03-06 09:44 | PN ---
Teaching Attending Note Name of Resident: Ankit Landeros ATTENDING PHYSICIAN STATEMENT I saw and evaluated the patient. I reviewed the resident's note and discussed the case with the resident. I agree with the resident's findings and plan as documented. SUBJECTIVE: patient seen and examined . she was dc yesterday but did not leave as her was working. she has some abd pain. her oxycodone order . still passing gas OBJECTIVE: NAD, MMM Lungs: CTAB Abd: soft, obese, TTP in suprapubic area arou nd wound. wound with ivis with no erythema or discharge. ISHAAN in place with serosanguinous fluid CV: RRR, no MRG legs no edema ASSESSMENT AND PLAN: 58 y/o lady with h.o DM, CKD4 , HTN, RA, retinopathy, asthma, L breast cancer s/ p Rtx , fibromyalgia, ventral hernia, low back pain, and other medical problems who presented with abd pain and was found to have SBO 1-SBO 2-Incarcerated abd wall hernia 3-[place] on CKD. 4- L breast mass. h/o L breast cancer 5- SIRS on admission. no signs of infection. 6- DM plan : - diet as tolerated at home - f/u with sx - avoid NSaids - hold enelapril at dc and use norvasc instead in mean time. when renal function improves, she can be started on enalapril - f/u with her rn rehab - After dc she understands she needs to increase her insulin slowly to avoid hypoglycemia as her po intake will improved . instructed to take 10 of lantus BID and increase slowly to her home dose of 28 bid also to take her Humolog only if her sugar > 270 ( confirmed with her , Humulin was stopped long time ago ) cont bacitracin and f/u with podiatry and wound care clinic to pick her up at noon today
[2019-03-06] MEDS ORDERED: PT OWN MED DRAWER 7, Y5N ONE (09:48)
[2019-03-06] MEDS: ENOXAPARIN NA (PORCINE) 40 MG/0.4 ML DISP.SYRIN SQ SCH (09:50)
[2019-03-06] MEDS: PANTOPRAZOLE 40 MG TABLET PO SCH (09:50)
[2019-03-06] MEDS: BACITRACIN 15 GM TUBE TOPICAL OINTMENT TP SCH (09:50)
[2019-03-06] MEDS: BUDESONIDE/FORMETEROL FUMARATE 160/4.5 mcg INHALER IH SCH (09:50)
[2019-03-06 12:00] VITALS: BP 163/87; PULSE 82
--- NOTE | 2019-03-06 16:51 | PN ---
Physical Exam: SUBJECTIVE: Patient seen and examined at bedside. Patient d/c yesterday, but was unable to leave as she did not have anybody to pick her up. She states she is leaving this afternoon. OBJECTIVE: Vital Signs Period Temp Pulse Resp BP Sys/Ronquillo Pulse Ox Last 24 Hr 98.3 F-98.6 F 73-90 20-20 130-163/59-87 95-98 GENERAL: The patient is awake, alert, and fully oriented, in no acute distress. LUNGS: Breath sounds equal, clear to auscultation bilaterally, no wheezes, no crackles, no accessory muscle use. HEART: Regular rate and rhythm, S1, S2 without murmur, rub or gallop. ABDOMEN: Soft, nontender, nondistended, normoactive bowel sounds, no guarding, no rebound, no hepatosplenomegaly, no masses. EXTREMITIES: 2+ pulses, warm, well-perfused, no edema. NEUROLOGICAL: Cranial nerves II through XII grossly intact. Normal speech, gait not observed. Laboratory Results - last 24 hr 03/05/19 03/06/19 17:17 06:29 POC Glucometer 208 232 ASSESSMENT/PLAN: 58 y/o F, pmh of DM on insulin, HTN, CKD, Asthma, RA, Left breast cancer s/p radiation, fibromyalgia, chronic low back pain, ventral hernia, presents with abdominal pain associated with distension, n/v of 3 day duration admitted for SBO 2/2 to ventral hernia SBO 2/2 to incarcerated ventral hernia -tolerating diet -discharged -ISHAAN drain will be removed outpt at the office CKD/ [place] -likely due to Diabetic nephropathy -will resume ACEI on DC DM -BGM ACHS -ISS #HTN -resume home meds #Breast mass -CT shows a mass- pt f/u with Dr Zambrano at [place]. -Last pierre 3 months ago Dispo -discharged, will leave today Visit type - Emergency Visit Emergency Visit: Yes ED Registration Date: 03/01/19 Care time: The patient presented to the Emergency Department on the above date and was hospitalized for further evaluation of their emergent condition. - New Patient This patient is new to me today: Yes Date on this admission: 03/06/19 - Critical Care Critical Care patient: No - Discharge Referral Referred to [facility] Med P.C.: No ATTENDING PHYSICIAN STATEMENT I saw and evaluated the patient. I reviewed the resident's note and discussed the case with the resident. I agree with the resident's findings and plan as documented. SUBJECTIVE: OBJECTIVE: ASSESSMENT AND PLAN:
--- NOTE | 2019-03-07 20:29 | EKG ---
Test Reason : Blood Pressure : / mmHG Vent. Rate : 085 BPM Atrial Rate : 085 BPM P-R Int : 220 ms QRS Dur : 088 ms QT Int : 386 ms P-R-T Axes : 047 -12 139 degrees QTc Int : 459 ms SINUS RHYTHM WITH 1ST DEGREE A-V BLOCK LEFT VENTRICULAR HYPERTROPHY WITH REPOLARIZATION ABNORMALITY ABNORMAL ECG WHEN COMPARED WITH ECG OF 01-MAR-2019 01:39, T WAVE INVERSION NOW EVIDENT IN ANTERIOR LEADS Confirmed by SU KIRKLAND MD ([id number]) on 03/07/2019 8:29:25 PM Referred By: Confirmed By:SU KIRKLAND MD
--- NOTE | 2019-03-08 13:15 | PN ---
Progress Note, Physician History of Present Illness: patient stable improving - Objective Vital Signs: Vital Signs Temperature 98.3 F 03/06/19 09:00 Pulse Rate 82 03/06/19 09:00 Respiratory Rate 20 03/06/19 09:00 Blood Pressure 163/87 03/06/19 09:00 O2 Sat by Pulse Oximetry (%) 95 03/06/19 09:00 Constitutional: Yes: Calm, Mild Distress Cardiovascular: Yes: S1, S2 Respiratory: Yes: Regular, CTA Bilaterally Gastrointestinal: Yes: Soft Musculoskeletal: Yes: WNL Extremities: Yes: WNL Wound/Incision: Yes: Dressing Dry and Intact Neurological: Yes: Alert, Oriented Labs: CBC, BMP 03/05/19 09:07 03/05/19 07:55 INR, PTT INR 1.13 (0.83-1.09) H 03/01/19 07:34 Assessment/Plan Small Bowel Obstruction/Incarcerated Ventral Hernia s/p ex-lap/hernia repair with mesh POD #1 Acute Hypercapneic Respiratory Failure improving Acute on CKD HTN DM h/o Breast Ca Anemia Morbid Obesity Likely Obstructive Sleep Apnea plan continue abx will deescalate improving rest as per the team and surgery
--- NOTE | 2019-03-08 13:17 | PN ---
Progress Note, Physician History of Present Illness: stable improving - Objective Vital Signs: Vital Signs Temperature 98.3 F 03/06/19 09:00 Pulse Rate 82 03/06/19 09:00 Respiratory Rate 20 03/06/19 09:00 Blood Pressure 163/87 03/06/19 09:00 O2 Sat by Pulse Oximetry (%) 95 03/06/19 09:00 Constitutional: Yes: No Distress, Calm Cardiovascular: Yes: S1, S2 Respiratory: Yes: Regular, CTA Bilaterally Gastrointestinal: Yes: Soft, Hypoactive Bowel Sounds Musculoskeletal: Yes: WNL Extremities: Yes: Other Neurological: Yes: Alert, Oriented Psychiatric: Yes: Alert, Oriented Labs: CBC, BMP 03/05/19 09:07 03/05/19 07:55 INR, PTT INR 1.13 (0.83-1.09) H 03/01/19 07:34 Assessment/Plan Small Bowel Obstruction/Incarcerated Ventral Hernia s/p ex-lap/hernia repair with mesh POD #1 Acute Hypercapneic Respiratory Failure improving Acute on CKD HTN DM h/o Breast Ca Anemia Morbid Obesity Likely Obstructive Sleep Apnea plan continue abx will deescalate improving rest as per the team and surgery
--- NOTE | 2019-03-08 13:19 | PN ---
Progress Note, Physician History of Present Illness: stable no new issues tolerating diet - Objective Vital Signs: Vital Signs Temperature 98.3 F 03/06/19 09:00 Pulse Rate 82 03/06/19 09:00 Respiratory Rate 20 03/06/19 09:00 Blood Pressure 163/87 03/06/19 09:00 O2 Sat by Pulse Oximetry (%) 95 03/06/19 09:00 Constitutional: Yes: No Distress, Calm Cardiovascular: Yes: S1, S2 Respiratory: Yes: Regular, CTA Bilaterally Gastrointestinal: Yes: Normal Bowel Sounds, Soft Musculoskeletal: Yes: WNL Extremities: Yes: Other Wound/Incision: Yes: Clean/Dry Neurological: Yes: Alert, Oriented Psychiatric: Yes: Alert, Oriented Labs: CBC, BMP 03/05/19 09:07 03/05/19 07:55 INR, PTT INR 1.13 (0.83-1.09) H 03/01/19 07:34 Assessment/Plan Small Bowel Obstruction/Incarcerated Ventral Hernia s/p ex-lap/hernia repair with mesh POD #1 Acute Hypercapneic Respiratory Failure improving Acute on CKD HTN DM h/o Breast Ca Anemia Morbid Obesity Likely Obstructive Sleep Apnea plan stop all abx rest as per the team monitor diet doing well
[2019-03-26 08:10] LABS: ARTERIAL BLOOD GAS PCO2 37.7 mmHg (35-45); ARTERIAL BLOOD GAS pH 7.35 (7.35-7.45)
== END 2019-03-06 13:17 | disposition home health service (06) | DRG 227 ==
LOC: JER 23:53 → JERBED 03-01 05:45 → JICU 03-01 14:57 → J6S 03-02 12:31
PROVIDERS: ADMIT Internal Medicine; ATTEND Internal Medicine
PROC: 0WUF0JZ Supplement Abdominal Wall with Synthetic Substitute, Open Approach (ICD-10-PCS; principal; 2019-03-01 10:15)
DX: K43.6 Other and unspecified ventral hernia with obstruction, without gangrene (principal); E66.01 Morbid (severe) obesity due to excess calories; Z68.41 Body mass index [BMI] 40.0-44.9, adult; M79.7 Fibromyalgia; J45.909 Unspecified asthma, uncomplicated; N63.0 Unspecified lump in unspecified breast; E11.621 Type 2 diabetes mellitus with foot ulcer; Z79.4 Long term (current) use of insulin; E88.09 Other disorders of plasma-protein metabolism, not elsewhere classified; E11.21 Type 2 diabetes mellitus with diabetic nephropathy; D72.829 Elevated white blood cell count, unspecified; I13.10 Hypertensive heart and chronic kidney disease without heart failure, with stage 1 through stage 4 chronic kidney disease, or unspecified chronic kidney disease; N18.4 Chronic kidney disease, stage 4 (severe); R65.10 Systemic inflammatory response syndrome (SIRS) of non-infectious origin without acute organ dysfunction; N17.9 Acute kidney failure, unspecified; J96.02 Acute respiratory failure with hypercapnia; E87.2 Acidosis; E11.65 Type 2 diabetes mellitus with hyperglycemia; D64.9 Anemia, unspecified; R18.8 Other ascites
CPT/HCPCS: 36415; 36600; 71045-TC-FY; 74176-TC; 80048; 80053; 81003; 82550; 82565; 82570; 82803; 82962; 83036; 83605; 83690; 83735; 84100; 84156; 84300; 84484; 84540; 85025; 85027; 85610; 85730; 86850; 86900; 86901; 87205; 88302-TC; 93005; 93010; 94002; 94760; 97116-GP; 97161-GP; 99284-25; J0131; J7030

== ENCOUNTER 2019-03-28 00:08 | Inpatient (IN) | payer OTHER ==
[2019-03-28] MEDS ORDERED: SODIUM CHLORIDE 500 ML IV STA (01:06)
[2019-03-28] MEDS ORDERED: VANCOMYCIN 1 GM in D5W (PRE-DOCKED) 1,000 MG/250 ML IVPB ONE (01:08)
[2019-03-28] MEDS ORDERED: PIPERACILLIN/TAZOB 4.5 GM 4.5 GM in DEXTROSE 5%-WATER 100 ML IVPB ONE (01:08)
[2019-03-28] MEDS ORDERED: PIPERACILLIN/TAZOB 4.5 GM 4.5 GM/100 ML BAG IVPB ONE (01:19)
[2019-03-28] MEDS ORDERED: VANCOMYCIN 1 GRAM (PRE-DOCKED) 1,000 MG/250 ML BAG IVPB ONE (01:20)
--- NOTE | 2019-03-28 01:23 | PDOC ---
History of Present Illness - General Chief Complaint: Injury Stated Complaint: FELL Time Seen by Provider: 03/28/19 00:50 History Source: Patient, Family Exam Limitations: No Limitations - History of Present Illness Initial Comments: 03/28/19 01:25 Patient is 58F with history of IDDM, HTN, CKD, asthma, RA, breast cancer s/p radiation, fibromyalgia, chronic low back pain, recent strangulated hernia d/c 03/06 here today with a fall. Patient states that she was trying to get out of the shower when her foot didn't quite make it out of the bathtub, causing her to fall backwards. Denies LOC, endorses hitting head and neck. Denies fevers, chills, nausea, vomiting. Denies chest pain, shortness of breath, abdominal pain and dysuria. Endorses hip pain bilaterally, R worse than L. Patient states that she has been feeling weaker lately and has had decreased PO intake. Patient endorses having a wound on R great toe that looks worse. She states that she has missed her prior wound care visits because the 'send her to the hospital'. Past History - Past Medical History Allergies/Adverse Reactions: Allergies Allergy/AdvReac Type Severity Reaction Status Date / Time shellfish derived Allergy Swelling Verified 03/28/19 00:27 Home Medications: Ambulatory Orders Carvedilol 25 mg PO BID 10/22/14 Montelukast Na [Singulair -] 10 mg PO HS 10/22/14 Pregabalin [Lyrica -] 75 mg PO TID 10/22/14 Cholecalciferol (Vitamin D3) [Vitamin D3] 50,000 unit PO WEEKLY 01/26/16 Tamoxifen Citrate 20 mg PO DAILY 05/24/16 Albuterol 0.083% Nebulizer Page [Ventolin 0.083% Nebulizer Soln -] 1 amp NEB DAILY 09/18/17 Budesonide/Formeterol Fumarate [SYMBICORT 160/4.5mcg -] 1 inh PO BID 09/18/17 Hydroxychloroquine Sulfate [Plaquenil] 400 mg PO BID 09/18/17 Mesalamine [Pentasa] 1,000 mg PO QID 09/18/17 Pantoprazole Sodium [Protonix] 40 mg PO DAILY 09/18/17 Folic Acid - 1 mg PO DAILY #30 tablet 09/26/17 Insulin Glargine,Hum.rec.anlog [Lantus] 28 unit SQ BID 11/26/18 Atorvastatin Ca [Lipitor] 20 mg PO HS 03/01/19 Duloxetine HCl 20 mg PO DAILY 03/01/19 Acetaminophen [Tylenol .Regular Strength -] 650 mg PO Q6H PRN #15 tablet Amlodipine Besylate [Norvasc -] 5 mg PO DAILY #30 tablet 03/05/19 Bacitracin - [Bacitracin Topical Ointment -] 1 applic TP DAILY #30 applic Insulin Lispro [Humalog] 25 unit SQ BID #15 ml 03/06/19 Oxycodone HCl [Roxicodone] 5 mg PO Q8H PRN #9 tablet MDD 3 tab 03/06/19 Anemia: Yes Asthma: Yes Cancer: Yes (BREAST(LT)) COPD: No Diabetes: Yes HTN: Yes Hypercholesterolemia: Yes - Surgical History Abdominal Surgery: Yes (cholycystectomy) Appendectomy: Yes Cholecystectomy: Yes - Psycho Social/Smoking Cessation Hx Smoking History: Unknown if ever smoked Have you smoked in the past 12 months: No Information on smoking cessation initiated: No Hx Alcohol Use: No Drug/Substance Use Hx: No Substance Use Type: None Hx Substance Use Treatment: No Review of Systems - Review of Systems Able to Perform ROS?: Yes Comments:: 03/28/19 01:31 GENERAL/CONSTITUTIONAL: No fever or chills. No weakness. HEAD, EYES, EARS, NOSE AND THROAT: No change in vision. No sore throat. CARDIOVASCULAR: No chest pain or shortness of breath RESPIRATORY: No cough, wheezing, or hemoptysis. GASTROINTESTINAL: No nausea, vomiting, diarrhea or constipation. GENITOURINARY: No dysuria, frequency, or change in urination. MUSCULOSKELETAL: +hip pain, +neck pain SKIN: No rash NEUROLOGIC: No headache, vertigo, loss of consciousness, or change in strength/ sensation. ENDOCRINE: No increased thirst. No abnormal weight change HEMATOLOGIC/LYMPHATIC: No anemia, easy bleeding, or history of blood clots. ALLERGIC/IMMUNOLOGIC: No hives or skin allergy. *Physical Exam - Vital Signs Last Vital Signs Temp Pulse Resp BP Pulse Ox 98.2 F 95 H 18 121/63 98 03/28/19 00:27 03/28/19 00:27 03/28/19 00:27 03/28/19 00:27 03/28/19 00:27 - Physical Exam 03/28/19 01:32 GENERAL: Awake, alert, and fully oriented, in no acute distress HEAD: No signs of trauma, normocephalic, atraumatic EYES: PERRLA, EOMI, sclera anicteric, conjunctiva clear ENT: Auricles normal inspection, hearing grossly normal, nares patent, oropharynx clear without exudates. Moist mucosa NECK: Normal ROM, supple, +midline tenderness at C5 BACK: No midline tenderness, no signs of trauma, tender on lateral aspects of lower back HIPS: Able to range, but pain in R hip bilaterally CHEST: Nontender, no signs of trauma LUNGS: No distress, speaks full sentences, clear to auscultation bilaterally HEART: Regular rate and rhythm, normal S1 and S2, no murmurs, rubs or gallops, peripheral pulses normal and equal bilaterally. ABDOMEN: Soft, nontender, well healing surgical scar. No guarding, no rebound. No masses LEGS/FEET: +DP pulses, normal motor strength, gangrenous wound on R great toe NEUROLOGICAL: Cranial nerves II through XII grossly intact. Normal speech, no focal sensorimotor deficits. +Bilateral hand tremor SKIN: Warm, Dry, normal turgor, no rashes or lesions noted. ED Treatment Course - LABORATORY CBC & Chemistry Diagram: 03/28/19 01:22 03/28/19 01:22 - RADIOLOGY Radiology Studies Ordered: Category Date Time Status CERVICAL SPINE CT W/O CONTR [CT] Stat CT Scan 03/28/19 01:[address] WITHOUT CONTRAST [CT] Stat CT Scan 03/28/19 01:07 Ordered CHEST X-RAY PORTABLE* [RAD] Stat Radiology 03/28/19 01:06 Ordered HIP & PELVIS-RIGHT [RAD] Stat Radiology 03/28/19 01:07 Ordered HIP-LEFT [RAD] Stat Radiology 03/28/19 01:07 Ordered Medical Decision Making - Medical Decision Making 03/28/19 01:37 Patient is 58F with history of IDDM, HTN, CKD, asthma, RA, breast cancer s/p radiation, fibromyalgia, chronic low back pain, recent strangulated hernia d/c 03/06 here today with fall, weakness, diabetic wound. Will workup trauma with head ct, cervical spine ct, pelvic x-ray, chest x-ray. Will workup weakness with ekg, cbc, cmp, trop, pt/inr. Will give vanc/zosyn for diabetic wound. Patient will require admission for diabetic wound. EKG shows SR with 1st degree block (DC 256) with rate of 92. No st elevation/ depressions. QTc normal. No significant t wave abnormalities. 03/28/19 04:59 Initial glucose in 700s, given 1L of NS and 5U of insulin IV. Recheck 500s, had received only 300cc, given 5U additional IV. CMP shows no gap. Bicarb normal. Beta hydroxybutyrate not markedly elevated. Osmolality estimated at 312. Do not believe patient is in DKA/HHS or requires insulin drip, will send VBG to confirm no acidosis. VBG confirms no acidosis. Trop negative. CMP shows [place]. CXR shows no acute process. Hip/pelvis x-rays show no fracture. CT head shows no bleed on my wet read. Patient now says pain in neck has resolved, nontender midline, ambulating. Do not suspect serious trauma. Will admit. Further history from patient indicates she has not been taking her insulin. 03/28/19 05:13 CT head negative. 03/28/19 05:31 CT neg negative. Discharge - Discharge Information Problems reviewed: Yes Clinical Impression/Diagnosis: Hyperglycemia Condition: Stable - Admission Yes - Follow up/Referral Referrals: Zachary Rogel MD [Primary Care Provider] - - Patient Discharge Instructions - Post Discharge Activity
[2019-03-28] MEDS ORDERED: ACETAMINOPHEN 1000 MG/100 ML VIAL (NON FORMULARY) IVPB ONE (01:32)
[2019-03-28] MEDS ORDERED: FOLIC ACID INJECTION - 1 MG, THIAMINE HCL 100 MG, MULTIVIT INJECTION ADULT 10 ML in SOD... IVPB ONE (01:33)
--- NOTE | 2019-03-28 01:33 | PDOC ---
Attending Attestation - Resident Resident Name: Pedrito Urban - ED Attending Attestation I have performed the following: I have examined & evaluated the patient, The case was reviewed & discussed with the resident, I agree w/resident's findings & plan - HPI HPI: 03/28/19 02:19 fall and weakness; pt has been feeling weak and she tripped out of the shower today. States that she has not been eating well due to the fact that she cannot find her insulin, which was misplaced by her son. She has been off insulin x 2 days. - Physicial Exam PE: 03/28/19 21:49 Pt is afebrile No rashes Bruises on the right side of her body Pt has no abdominal pain She is morbidly obese. Heart and lungs normal No flank pain. Neuro intact. Pt has generalized weakness. Right medial and distal aspect of the 1st toe has eschar/cellulitis. (Pt has a wound care appointment on Friday for this) - Medical Decision Making 03/28/19 05:17 Patient Name: GABBY DE LEÓN THIS IS A PRELIMINARY REPORT FROM [facility] DATE OF SERVICE: 2019-03-28 04:16:43 IMAGES: 236 EXAM: CERVICAL SPINE CT W/O CONTR HISTORY: 58-Year-Old Female Status Post Fall COMPARISON: March 28, 2019 FINDINGS: There is no prevertebral soft tissue swelling. There is no evidence of acute fracture or subluxation. There are no destructive lesions. Moderate degenerative joint disease at the atlantodens joint. Mild degenerative disc disease and mild degenerative joint disease of the uncovertebral joints and facets throughout the cervical spine. Heterogeneous enlarged thyroid most likely due to multinodular thyroid goiter and a benign or malignant thyroid mass cannot be excluded. IMPRESSION: No evidence of acute fracture or subluxation. Moderate degenerative joint disease at the atlantodens joint. Mild degenerative disc disease and mild degenerative joint disease of the uncovertebral joints and facets throughout the cervical spine. Heterogeneous enlarged thyroid most likely due to multinodular thyroid goiter and a benign or malignant thyroid mass cannot be excluded. If clinically indicated a follow-up Outpatient Thyroid Ultrasound may be needed. 03/28/19 05:17 Patient Name: GABBY DE LEÓN THIS IS A PRELIMINARY REPORT FROM [facility] DATE OF SERVICE: 2019-03-28 04:19:32 IMAGES: 256 EXAM: HEAD CT WITHOUT CONTRAST HISTORY: 58-year-old female status post fall COMPARISON: March 28, 2019 FINDINGS: No acute intracranial hemorrhage mass effect or midline shift. The ventricles sulci and basilar cisterns have a normal size and contour. Mild nonspecific periventricular predominant low density throughout the deep white matter is most likely due to mild small vessel ischemic white matter disease. Calcified arteriosclerosis of the cavernous carotids noted. The sinuses and mastoid air cells are clear within the [id number]. The calvarium is intact. IMPRESSION No acute intracranial hemorrhage mass effect or midline shift. Mild nonspecific periventricular predominant low density throughout the deep white matter is most likely due to mild small vessel ischemic white matter disease. Calcified arteriosclerosis of the cavernous carotids noted. 03/28/19 05:18 Glc 700; betahydroxybutyrte is 5.6 03/28/19 21:53 Pt will be admitted to medicine service.
[2019-03-28 01:42] LABS: BASO % 0.6 % (0-2.0); EOS % 1.6 % (0-4.5); HEMOGLOBIN 10.5 GM/dL (10.7-15.3); LYMPH % 7.2 % (8-40); MCH 26.4 pg (25.7-33.7); MCHC 31.9 g/dl (32.0-36.0); MEAN CELL VOLUME 82.8 fl (80-96); MEAN PLT VOLUME 9.6 fl (7.5-11.1); MONO % 4.8 % (3.8-10.2); NEUT % 85.8 % (42.8-82.8); PLATELET COUNT 247 K/MM3 (134-434); RBC 3.99 M/mm3 (3.60-5.2); WHITE BLOOD COUNT 11.7 K/mm3 (4.0-10.0)
[2019-03-28 02:14] LABS: ALBUMIN 2.8 g/dl (3.4-5.0); BILIRUBIN,TOTAL 0.3 mg/dL (0.2-1); BLOOD UREA NITROGEN 36.3 mg/dL (7-18); CALCIUM 9.7 mg/dL (8.5-10.1); CREATININE 4.1 mg/dL (0.55-1.3); MAGNESIUM 2.1 mg/dL (1.8-2.4); POTASSIUM 4.2 mmol/L (3.5-5.1); TOT PROT 7.8 g/dl (6.4-8.2)
[2019-03-28] MEDS ORDERED: ACETAMINOPHEN INJECTION 100 ML IVPB ONE (02:37)
[2019-03-28] MEDS ORDERED: INSULIN REGULAR HUMAN 100 UNITS/ML *VIAL IVPUSH ONE (02:38)
[2019-03-28] MEDS ORDERED: SODIUM CHLORIDE 1,000 ML IV STA (02:38)
[2019-03-28 03:07] LABS: INR 1.03 (0.83-1.09); PROTHROMBIN TIME (PATIENT) 12.1 SEC (9.7-13.0)
[2019-03-28 03:10] LABS: ACTIVATED PTT 26.6 SECONDS (25.2-36.5)
[2019-03-28 05:00] LABS: VENOUS PC02 46.3 mmHg (38-52); VENOUS PH 7.34 (7.31-7.41)
[2019-03-28 05:01] LABS: VENOUS PO2 < 49 mmHg (28-48)
--- NOTE | 2019-03-28 05:33 | PN ---
Teaching Attending Note Name of Resident: Omar Coles ATTENDING PHYSICIAN STATEMENT I saw and evaluated the patient. I reviewed the resident's note and discussed the case with the resident. I agree with the resident's findings and plan as documented. SUBJECTIVE: Patient is 58 year old woman with a PMH of Insulin-treated DM, HTN, CKD, Asthma , RA, Breast cancer s/p radiation, Fibromyalgia, Chronic low back pain, and Recent strangulated hernia (discharged 03/06/19) presents after a fall. Patient states that she was trying to get out of the shower when her foot didn't quite make it out of the bathtub, causing her to fall backwards. Denies LOC, endorses hitting head and neck. Denies fevers, chills, nausea, vomiting. Denies chest pain, shortness of breath, abdominal pain and dysuria. Has hip pain bilaterally , R worse than L. Patient states that she has been feeling weaker lately and has had decreased PO intake. Patient endorses having a wound on R great toe that looks worse. She states that she has missed her prior wound care visits because the 'send her to the hospital'. Denies tobacco, alcohol or illicit drug use. OBJECTIVE: Alert Vital Signs Period Temp Pulse Resp BP Sys/Ronquillo Pulse Ox Last 24 Hr 98.2 F 89-95 18-20 121-154/63-74 95-98 HEENT: No Jaundice, eye redness or discharge, PERRLA, EOMI. Normocephalic, atraumatic. External ears are normal and hearing is grossly intact. No nasal discharge. Neck: Supple, midline tenderness at C5 level. No palpable adenopathy or thyromegaly. No JVD Chest: Good effort. Clear to auscultation and percussion. Heart: Regular. No S3, rub or murmur Abdomen: Not distended, soft, nontender and no HSM. No rebound or guarding. Normal bowel sounds. Ext: Peripheral pulses intact. No leg edema. Right hip tenderness. Skin: Warm and dry. No petechiae, rash or ecchymosis. Neuro: Alert. Oriented x3. CN 2-12 grossly intact. Sensation grossly intact in all four extremities and DTR are symmetric. Psych: Appropriate mood and affect. Good insight. Current Medications Generic Name Dose Route Start Last Admin Trade Name Freq PRN Reason Stop Dose Admin Folic Acid 1 mg/ Thiamine HCl 1,000 mls @ 125 mls/hr 03/28/19 01:33 03/28/19 02:59 100 mg/ Multivitamins/Minerals IVPB 03/28/19 09:32 125 mls/hr 10 ml/ Sodium Chloride ONCE ONE Administration Home Medications Medication Instructions Recorded Carvedilol 25 mg PO BID 10/22/14 Montelukast Na [Singulair -] 10 mg PO HS 10/22/14 Pregabalin [Lyrica -] 75 mg PO TID 10/22/14 Cholecalciferol (Vitamin D3) 50,000 unit PO WEEKLY 01/26/16 [Vitamin D3] Tamoxifen Citrate 20 mg PO DAILY 05/24/16 Albuterol 0.083% Nebulizer Page 1 amp NEB DAILY 09/18/17 [Ventolin 0.083% Nebulizer Soln -] Budesonide/Formeterol Fumarate 1 inh PO BID 09/18/17 [SYMBICORT 160/4.5mcg -] Hydroxychloroquine Sulfate 400 mg PO BID 09/18/17 [Plaquenil] Mesalamine [Pentasa] 1,000 mg PO QID 09/18/17 Pantoprazole Sodium [Protonix] 40 mg PO DAILY 09/18/17 Folic Acid - 1 mg PO DAILY #30 tablet 09/26/17 Insulin Glargine,Hum.rec.anlog 28 unit SQ BID 11/26/18 [Lantus] Atorvastatin Ca [Lipitor] 20 mg PO HS 03/01/19 Duloxetine HCl 20 mg PO DAILY 03/01/19 Acetaminophen [Tylenol .Regular 650 mg PO Q6H PRN #15 tablet 03/05/19 Strength -] Amlodipine Besylate [Norvasc -] 5 mg PO DAILY #30 tablet 03/05/19 Bacitracin - [Bacitracin Topical 1 applic TP DAILY #30 applic 03/05/19 Ointment -] Insulin Lispro [Humalog] 25 unit SQ BID #15 ml 03/06/19 Oxycodone HCl [Roxicodone] 5 mg PO Q8H PRN #9 tablet MDD 3 tab 03/06/19 Abnormal Lab Results 03/28/19 03/28/19 03/28/19 01:22 01:22 04:51 WBC 11.7 H Hgb 10.5 L MCHC 31.9 L Absolute Neuts (auto) 10.0 H Neutrophils % 85.8 H Lymphocytes % 7.2 L D POC VBG pO2 < 49 H VBG O2 Sat (Sanchez) 38.7 L Sodium 130 L Chloride 94 L BUN 36.3 H Creatinine 4.1 H Random Glucose 706 H* Alkaline Phosphatase 118 H Albumin 2.8 L Beta-Hydroxybutyrate 5.6 H ASSESSMENT AND PLAN: 1. Fall/Uncontrolled DM - Uncontrolled DM, dehydration and/or debility associated with toe infection my have led to her fall. CT of head didnot show any acute abnormality and C-spine CT didnot show fracture or subluxation. Got 5 units regular insulin IV in the ER. Will repeat BMP stat and if indicated will give another dose of IV insulin. Will continue IV NS, monitor and replete K+ hold her home diabetes drugs and implement sliding scale insulin regimen. Will get UA and CXR. Provide comprehensive diabetes care with patient teaching and counseling about the importance of adherence to prescribed diabetes regimen, euglycemia, eye care and foot care. Will treat infected right big toe wound with zosyn and linezolid, provide daily wound care, consult Podiatry and ID. Will continue comprehensive care for all of patients comorbid conditions. 2. Hypoalbuminemia - Possibly due to combined effects of malnutrition and inflammation associated with comorbid chronic conditions. Will ensure adequate dietary protein intake and also consult etcher apprentice. Urinalysis pending. 3. CKD - Has risk factors for CKD. Will get kidney sonogram, hydrate and monitor urine output. Check CPK. Will consult nephrology and avoid nephrotoxic agents such as NSAIDS, aminoglycosides, contrast dyes and certain Alternative medicine products. 4. Polypharmacy - Will liaise with patient's PCP to discontinue medications that are not absolutely essential. 5. Obesity Counseled on the risks associated with obesity. Will provide patient all the necessary assistance, counseling and positive reinforcement to facilitate weight loss. Consult etcher apprentice. 6. Hypertension - Restart suitable outpatient antihypertensive drugs when clinically appropriate. Revise regimen to ensure [id number] excellent BP control and retirement plan counselor patient on the injurious effects of uncontrolled hypertension. Nonpharmacologic measures to control hypertension like weight loss , salt restriction and exercise discussed. Importance of adherence to treatment regimen and attainment of normotension emphasized. 7. Anemia - Likely mainly due to CKD. Will do basic anemia work up including serial stool guaiacs, reticulocyte count and iron studies. Would benefit from Procrit therapy once iron replete. 8. DVT prophylaxis - Heparin 5000u sq tid. 9. Advance directives - Full code
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
[2019-03-28] MEDS ORDERED: LINEZOLID 600 MG PREMIX BAG 600 MG in PREMIX 300 IVPB SCH (07:00)
[2019-03-28] MEDS: SODIUM CHLORIDE 1,000 ML IV SCH (07:02)
[2019-03-28] MEDS: INSULIN SLIDING SCALE (NOVOLOG) 1 VIAL SQ SCH ×4 (07:58→21:24)
[2019-03-28] MEDS ORDERED: LINEZOLID 600 MG PREMIX BAG 600 MG/300 ML BAG IVPB SCH (08:00)
[2019-03-28] MEDS ORDERED: PIPERACILLIN/TAZOB 2.25 GM 2.25 GM in DEXTROSE 5%-WATER - 50 ML IVPB SCH (10:00)
[2019-03-28 10:41] LABS: EOS % 1.9 % (0-4.5); HEMOGLOBIN 10.1 GM/dL (10.7-15.3); LYMPH % 16.3 % (8-40); MCH 26.3 pg (25.7-33.7); MCHC 32.5 g/dl (32.0-36.0); MEAN CELL VOLUME 80.9 fl (80-96); MEAN PLT VOLUME 9.5 fl (7.5-11.1); MONO % 4.7 % (3.8-10.2); NEUT % 76.1 % (42.8-82.8); PLATELET COUNT 249 K/MM3 (134-434); RBC 3.84 M/mm3 (3.60-5.2); RDW 13.8 % (11.6-15.6); WHITE BLOOD COUNT 11.7 K/mm3 (4.0-10.0)
[2019-03-28 11:00] LABS: INR 0.98 (0.83-1.09); PROTHROMBIN TIME (PATIENT) 11.6 SEC (9.7-13.0)
[2019-03-28 11:02] LABS: ACTIVATED PTT 28.8 SECONDS (25.2-36.5)
[2019-03-28 11:03] LABS: ALBUMIN 2.6 g/dl (3.4-5.0); ALK PHOS 109 U/L (45-117); ANION GAP 9 MMOL/L (8-16); BILIRUBIN,TOTAL 0.3 mg/dL (0.2-1); BLOOD UREA NITROGEN 31.8 mg/dL (7-18); CALCIUM 9.5 mg/dL (8.5-10.1); CHLORIDE 106 mmol/L (98-107); CO2 26 mmol/L (21-32); CREATININE 3.6 mg/dL (0.55-1.3); GLUCOSE,RANDOM 109 mg/dL (74-106); MAGNESIUM 2.1 mg/dL (1.8-2.4); PHOSPHOROUS 2.6 mg/dL (2.5-4.9); POTASSIUM 3.3 mmol/L (3.5-5.1); SGOT/AST 9 U/L (15-37); SGPT/ALT 18 U/L (13-61); SODIUM 141 mmol/L (136-145); TOT PROT 7.4 g/dl (6.4-8.2)
[2019-03-28 11:05] LABS: CHOLESTEROL 114 mg/dL (50-200); HDL CHOLESTEROL 37 mg/dL (40-60); LDL CHOLESTEROL (ONLY SJRH) 57 mg/dL (5-100); TRIGLYCERIDES 235 mg/dL (0-150)
[2019-03-28] MEDS ORDERED: DEXTROSE 5%-WATER - 50 ML IVPB ONE (11:23)
[2019-03-28] MEDS ORDERED: PIPERACILLIN/TAZOBACTAM 2.25 GM VIAL IVPB ONE (11:23)
--- NOTE | 2019-03-28 11:40 | PN ---
Progress Note, Physician Chief Complaint: No new complaints, complaint of back pain History of Present Illness: 58 y/o F with a significant past medical history of IDDM, HTN, CKD, asthma, RA , breast cancer s/p radiation, fibromyalgia, recent incarcerated hernia (s/p surgical repair in February 2019) who presented to our hospital due to a mechanical fall.FS reported 572 - Current Medication List Current Medications: Active Medications Heparin Sodium (Porcine) (Heparin -) 5,000 unit SQ TID VINCE Sodium Chloride (Normal Saline -) 1,000 mls @ 100 mls/hr IV ASDIR VINCE Last Admin: 03/28/19 07:02 Dose: 100 mls/hr Piperacillin Sod/Tazobactam (Sod 2.25 gm/ Dextrose) 50 mls @ 100 mls/hr IVPB Q8H-IV VINCE; Protocol Linezolid 600 mg/ (Miscellaneous) 300 mls @ 300 mls/hr IVPB Q12H VINCE; Protocol Linezolid (Zyvox 600 Mg Premix Bag (Restricted To Id) -) 600 mg in 300 mls @ 300 mls/hr IVPB Q12H VINCE Stop: 03/28/19 20:59 Last Admin: 03/28/19 10:45 Dose: 300 mls/hr Piperacillin Sod/Tazobactam (Sod 2.25 gm/ Dextrose) 50 mls @ 100 mls/hr IVPB Q8H-IV VINCE Stop: 03/29/19 02:29 Insulin Aspart (Novolog Vial Sliding Scale -) 1 vial SQ ACHS VINCE; Protocol Last Admin: 03/28/19 11:20 Dose: Not Given - Objective Vital Signs: Vital Signs Temperature 97.8 F 03/28/19 09:28 Pulse Rate 92 H 03/28/19 09:28 Respiratory Rate 18 03/28/19 09:28 Blood Pressure 139/68 03/28/19 09:28 O2 Sat by Pulse Oximetry (%) 98 03/28/19 09:28 General: Middle-aged woman, comfortable, not in distress HEENT; mucous membranes moist, no anemia, no jaundice, PERRLA, no nystagmus Neck: No JVD, supple, no bruit, thyroid palpably normal, normal carotid pulsations. Chest: Non-tender, clear to auscultation bilaterally CVS: S1-S2 regular/irregular no murmur/gallop/rub Abdomen: Status post surgery. He will sutures ivis removed , obese soft, bowel sounds present. 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 Problems reviewed: Yes Code(s): W19.XXXA - UNSPECIFIED FALL, INITIAL ENCOUNTER (2) Hyperglycemia Assessment/Plan: Most likely due to noncompliance, lately patient is not injecting long-acting insulin, will resume last discharge dose Levemir 10 units at bedtime with correction dose insulin, Accu-Cheks, diabetic diet follow-up and optimize glycemic control. Problems reviewed: Yes Code(s): R73.9 - HYPERGLYCEMIA, UNSPECIFIED (3) Acute kidney injury superimposed on CKD Assessment/Plan: Baseline patient is CKD status post present with worsening renal function most likely secondary to hyperglycemia dehydration improving on IV hydration will follow BMP mild hypokalemia consider CKD stage IV will defer potassium replacement. Problems reviewed: Yes Code(s): N17.9 - ACUTE KIDNEY FAILURE, UNSPECIFIED; N18.9 - CHRONIC KIDNEY DISEASE, UNSPECIFIED (4) Hypertension Assessment/Plan: Resume all home medications. Follow-up orthostatic blood pressure check. Problems reviewed: Yes Code(s): I10 - ESSENTIAL (PRIMARY) HYPERTENSION (5) Hypercholesterolemia Assessment/Plan: Continue Crestor. Problems reviewed: Yes Code(s): E78.00 - PURE HYPERCHOLESTEROLEMIA, UNSPECIFIED (6) Chronic pain Assessment/Plan: History of chronic back pain and neuropathic pain on Lyrica and Percocet as needed at home will continue same. Problems reviewed: Yes Code(s): G89.29 - OTHER CHRONIC PAIN (7) COPD (chronic obstructive pulmonary disease) Assessment/Plan: T of COPD/asthma resume all home medications. Problems reviewed: Yes Code(s): J44.9 - CHRONIC OBSTRUCTIVE PULMONARY DISEASE, UNSPECIFIED (8) Nonhealing ulcer of left lower extremity Assessment/Plan: Right toe chronic ulcer, at present no sign of acute inflammation, initially put on IV antibiotic, he will by ID will hold antibiotic follow-up ESR and foot x-ray. Follow podiatry recommendations. Problems reviewed: Yes Code(s): L97.929 - NON-PRS CHRONIC ULC UNSP PRT OF L LOW LEG W UNSP SEVERITY
[2019-03-28] MEDS: oxyCODONE HCL 5 MG TABLET PO PRN ×2 (12:11→21:25)
[2019-03-28 12:25] VITALS: BMI 36.8
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
[2019-03-28] MEDS ORDERED: MESALAMINE 1000 MG PO SCH (14:00)
[2019-03-28] MEDS ORDERED: PREGABALIN 50 MG CAPSULE PO SCH (14:00)
[2019-03-28] MEDS: PREGABALIN 25 MG CAPSULE PO SCH ×2 (14:17→21:24)
[2019-03-28] MEDS: HEPARIN NA (PORCINE) 5,000 UNITS/ML 1ML VIAL SQ SCH ×2 (14:18→21:25)
[2019-03-28] MEDS: BUDESONIDE/FORMETEROL FUMARATE 160/4.5 mcg INHALER IH SCH ×2 (14:19→21:32)
[2019-03-28 14:45] LABS: ERYTHROCYTE SEDIMENTATION RATE 89 mm/hr (0-30)
[2019-03-28] MEDS ORDERED: ALBUTEROL SO4 0.083% IH SOL 2.5 MG/3 ML VIAL.NEB. NEB PRN (19:04)
[2019-03-28] MEDS ORDERED: INSULIN (NOVOLOG) ASPART 100 UNITS/ML 10ML VIAL ONE (21:06)
[2019-03-28] MEDS: HYDROXYCHLOROQUINE SO4 200 MG TABLET (FP) PO SCH (21:25)
[2019-03-28] MEDS: CARVEDILOL 12.5 MG TABLET (FP) PO SCH (21:25)
[2019-03-28] MEDS: MONTELUKAST NA 10 MG TABLET PO SCH (21:25)
[2019-03-28] MEDS ORDERED: INSULIN (LEVEMIR) 100 UNITS/ML UNITS SQ SCH (22:00)
--- NOTE | 2019-03-29 00:59 | EKG ---
Test Reason : Blood Pressure : / mmHG Vent. Rate : 092 BPM Atrial Rate : 092 BPM P-R Int : 256 ms QRS Dur : 088 ms QT Int : 360 ms P-R-T Axes : 044 -19 119 degrees QTc Int : 445 ms SINUS RHYTHM WITH 1ST DEGREE A-V BLOCK LEFT VENTRICULAR HYPERTROPHY WITH REPOLARIZATION ABNORMALITY ABNORMAL ECG WHEN COMPARED WITH ECG OF 04-MAR-2019 23:14, T WAVE VARIATION Confirmed by PARISH RAMIREZ, PALOMO ([id number]) on 03/29/2019 12:58:59 AM Referred By: Confirmed By:PALOMO LUGO MD
[2019-03-29] MEDS: PREGABALIN 25 MG CAPSULE PO SCH ×3 (06:34→21:46)
[2019-03-29] MEDS: HEPARIN NA (PORCINE) 5,000 UNITS/ML 1ML VIAL SQ SCH ×3 (06:34→21:48)
[2019-03-29] MEDS: INSULIN SLIDING SCALE (NOVOLOG) 1 VIAL SQ SCH ×3 (06:35→17:12)
[2019-03-29 08:22] LABS: EOS % 4.2 % (0-4.5); HEMATOCRIT 28.7 % (32.4-45.2); HEMOGLOBIN 9.3 GM/dL (10.7-15.3); LYMPH % 21.9 % (8-40); MCH 26.8 pg (25.7-33.7); MCHC 32.6 g/dl (32.0-36.0); MEAN CELL VOLUME 82.2 fl (80-96); MEAN PLT VOLUME 9.8 fl (7.5-11.1); NEUT % 67.9 % (42.8-82.8); PLATELET COUNT 185 K/MM3 (134-434); RBC 3.49 M/mm3 (3.60-5.2); RDW 14.2 % (11.6-15.6); WHITE BLOOD COUNT 7.6 K/mm3 (4.0-10.0)
[2019-03-29 08:42] LABS: BLOOD UREA NITROGEN 34.3 mg/dL (7-18); CALCIUM 9.3 mg/dL (8.5-10.1); CREATININE 3.7 mg/dL (0.55-1.3)
[2019-03-29] MEDS ORDERED: PT OWN MED DRAWER 7, Y5N ONE (09:42)
[2019-03-29] MEDS: CARVEDILOL 12.5 MG TABLET (FP) PO SCH ×2 (09:51→21:47)
[2019-03-29] MEDS: HYDROXYCHLOROQUINE SO4 200 MG TABLET (FP) PO SCH ×2 (09:52→21:47)
[2019-03-29] MEDS: BACITRACIN 15 GM TUBE TOPICAL OINTMENT TP SCH (09:52)
[2019-03-29] MEDS: PANTOPRAZOLE 40 MG TABLET (FP) PO SCH (09:52)
[2019-03-29] MEDS: DULoxetine HCL 20 MG CAPSULE.DR PO SCH (09:52)
[2019-03-29] MEDS ORDERED: TAMOXIFEN CITRATE 10 MG TABLET PO SCH (10:00)
[2019-03-29] MEDS ORDERED: amLODIPine BESYLATE 5 MG TABLET (FP) PO SCH (10:00)
[2019-03-29] MEDS: BUDESONIDE/FORMETEROL FUMARATE 160/4.5 mcg INHALER IH SCH ×2 (10:05→21:46)
[2019-03-29] MEDS: SODIUM CHLORIDE 1,000 ML IV SCH ×2 (10:05→19:26)
--- NOTE | 2019-03-29 12:41 | CONSULT ---
- Consultation REQUESTING PROVIDER: Vascular Surgery - Felix Jacobsen CONSULT REQUEST: We have been asked to surgically evaluate this patient LE pulses; chronic Right hallux ulcer. Hospitalist: Herbert Yanez PCP: Dr. Rogel ([place], [place]) HPI: Called to eval 58 yo female with PMHx as noted below. Patient is well known to Surgery Service as we recently cared for her s/p incarcerated hernia repair. Patient has chronic wound on her right Hallux. Denies n/v/f/c, CP, palpitations , irregular heart beat, peripheral edema, SOB or ARRIETA. PMHx: IDDM Neuropathy HTN CKD Morbid Obesity Asthma Breast CA (s/p radiation) Fibromyalgia Diabetic retinopathy RA Chronic LBP PSHx: Incarcerated Hernia Repair Cholecystectomy Appendectomy Hysterectomy Home Meds Carvedilol 25 mg PO BID 10/22/14 Montelukast Na [Singulair -] 10 mg PO HS 10/22/14 Pregabalin [Lyrica -] 75 mg PO TID 10/22/14 Cholecalciferol (Vitamin D3) [Vitamin D3] 50,000 unit PO WEEKLY 01/26/16 Tamoxifen Citrate 20 mg PO DAILY 05/24/16 Albuterol 0.083% Nebulizer Page [Ventolin 0.083% Nebulizer Soln -] 1 amp NEB DAILY 09/18/17 Budesonide/Formeterol Fumarate [SYMBICORT 160/4.5mcg -] 1 inh PO BID 09/18/17 Hydroxychloroquine Sulfate [Plaquenil] 400 mg PO BID 09/18/17 Mesalamine [Pentasa] 1,000 mg PO QID 09/18/17 Pantoprazole Sodium [Protonix] 40 mg PO DAILY 09/18/17 Folic Acid - 1 mg PO DAILY #30 tablet 09/26/17 Insulin Glargine,Hum.rec.anlog [Lantus] 28 unit SQ BID 11/26/18 Atorvastatin Ca [Lipitor] 20 mg PO HS 03/01/19 Duloxetine HCl 20 mg PO DAILY 03/01/19 Acetaminophen [Tylenol .Regular Strength -] 650 mg PO Q6H PRN #15 tablet Amlodipine Besylate [Norvasc -] 5 mg PO DAILY #30 tablet 03/05/19 Bacitracin - [Bacitracin Topical Ointment -] 1 applic TP DAILY #30 applic Insulin Lispro [Humalog] 25 unit SQ BID #15 ml 03/06/19 Oxycodone HCl [Roxicodone] 5 mg PO Q8H PRN #9 tablet MDD 3 tab 03/06/19 Allergies Shellfish (swelling) ROS CONSTITUTIONAL: Absent: diaphoresis, generalized weakness, malaise, loss of appetite, weight change CARDIOVASCULAR: Absent: syncope, lightheadedness RESPIRATORY: Absent: cough, wheezing, stridor, hemoptysis GASTROINTESTINAL:Absent: abdominal pain, abdominal distension, melena, hematochezia GENITOURINARY: Absent: dysuria, frequency, urgency, hesitancy, hematuria, flank pain, genital pain MUSCULOSKELETAL: Absent: myalgia, arthralgia, joint swelling, back pain, neck pain SKIN: Absent: rash, itching, pallor HEMATOLOGIC/IMMUNOLOGIC: Absent: easy bleeding, easy bruising, lymphadenopathy NEUROLOGIC: Absent: headache, focal weakness, unsteady gait, seizure, mental status changes, PSYCHIATRIC: Absent: anxiety, depression, suicidal or homicidal ideation, hallucinations. PE: GENERAL: Awake, alert, and fully oriented, in no acute distress. HEAD: Normal with no signs of trauma. EYES: PERRL, sclera anicteric, conjunctiva clear. NECK: Normal ROM, supple without lymphadenopathy, JVD, or masses. LUNGS: unlabored respirations. 98% on RA HEART: RRR ABDOMEN: Obese habitus. Soft, NT MUSCULOSKELETAL: No CVA tenderness. UE: 2+ pulses, warm, well-perfused. No cyanosis. Cap refill <2 seconds. No peripheral edema. LE: LLE unremarkable. RLE warm. Palpable DP. Dopplerable PT & AT, warm, well- perfused. No calf tenderness. No peripheral edema. NEUROLOGICAL: Normal speech, gait not observed. PSYCH: Cooperative. Good eye contact. Appropriate mood and affect. SKIN: Warm, dry, normal turgor, no rashes or lesions noted Last Vital Signs Temp Pulse Resp BP Pulse Ox 98.7 F 62 19 114/53 L 98 03/29/19 10:00 03/29/19 10:00 03/29/19 10:00 03/29/19 10:00 03/29/19 09:00 CBC, BMP 03/29/19 07:07 12/09/19 07:07 INR, PTT INR 0.98 (0.83-1.09) 03/28/19 09:50 Problem List - Problems (1) Chronic ulcer of great toe of right foot Assessment/Plan: Podiatry consulted and will follow Right Hallux ulcer. No need for further imaging as patient has palpable pulses. Cont medical management Reconsult PRN Above plan discussed with my attending and agrees. On behalf of Dr. Jacobsen, thank you for the opportunity to participate in your patient's care Code(s): L97.519 - NON-PRS CHRONIC ULCER OTH PRT RIGHT FOOT W UNSP SEVERITY (2) COPD (chronic obstructive pulmonary disease) Code(s): J44.9 - CHRONIC OBSTRUCTIVE PULMONARY DISEASE, UNSPECIFIED (3) Diabetes Code(s): E11.9 - TYPE 2 DIABETES MELLITUS WITHOUT COMPLICATIONS Qualifiers: Visit type - Case Type Case Type: ED Admission - Emergency Emergency Visit: Yes ED Registration Date: 03/28/19 Care time: The patient presented to the Emergency Department on the above date and was hospitalized for further evaluation of their emergent condition. - New patient This patient is new to me today: Yes Date on this admission: 03/29/19
--- NOTE | 2019-03-29 13:10 | CONSULT ---
Consult - text type - Consultation Consultation Note: Renal consult for CKD/[place] This is a 58 year old woman with with history of CKD stage 4, DM on insulin, hypertension, Asthma, Ra, breast cancer s/p radiation therapy who presented with fall at home and tremors and noted to have Cr of 4. Pt denies any changes in urine output, N/V/D, NSAID use, flank pain, dysuria, frequency, skin rash or change in appetite. Denies any legs swelling or shortness of breath. PMHx: as above Allergies: NKDA Family Hx: NC Social Hx: No T/A/D ROS: as per HPI, all other pertinent ros negative Home Medications Medication Instructions Recorded Carvedilol 25 mg PO BID 10/22/14 Montelukast Na [Singulair -] 10 mg PO HS 10/22/14 Pregabalin [Lyrica -] 75 mg PO TID 10/22/14 Cholecalciferol (Vitamin D3) 50,000 unit PO WEEKLY 01/26/16 [Vitamin D3] Tamoxifen Citrate 20 mg PO DAILY 05/24/16 Albuterol 0.083% Nebulizer Page 1 amp NEB DAILY 09/18/17 [Ventolin 0.083% Nebulizer Soln -] Budesonide/Formeterol Fumarate 1 inh PO BID 09/18/17 [SYMBICORT 160/4.5mcg -] Hydroxychloroquine Sulfate 400 mg PO BID 09/18/17 [Plaquenil] Mesalamine [Pentasa] 1,000 mg PO QID 09/18/17 Pantoprazole Sodium [Protonix] 40 mg PO DAILY 09/18/17 Folic Acid - 1 mg PO DAILY #30 tablet 09/26/17 Insulin Glargine,Hum.rec.anlog 28 unit SQ BID 11/26/18 [Lantus] Atorvastatin Ca [Lipitor] 20 mg PO HS 03/01/19 Duloxetine HCl 20 mg PO DAILY 03/01/19 Acetaminophen [Tylenol .Regular 650 mg PO Q6H PRN #15 tablet 03/05/19 Strength -] Amlodipine Besylate [Norvasc -] 5 mg PO DAILY #30 tablet 03/05/19 Bacitracin - [Bacitracin Topical 1 applic TP DAILY #30 applic 03/05/19 Ointment -] Insulin Lispro [Humalog] 25 unit SQ BID #15 ml 03/06/19 Oxycodone HCl [Roxicodone] 5 mg PO Q8H PRN #9 tablet MDD 3 tab 03/06/19 Vital Signs Temperature 98.7 F 03/29/19 10:00 Pulse Rate 62 03/29/19 10:00 Respiratory Rate 19 03/29/19 10:00 Blood Pressure 114/53 L 03/29/19 10:00 O2 Sat by Pulse Oximetry (%) 98 03/29/19 09:00 Intake & Output 03/26/19 03/27/19 03/28/19 03/29/19 23:59 23:59 23:59 23:59 Intake Total 1180 Balance 1180 Weight 106.73 kg NAD awake and alert neck supple, no JVD RRR CTA soft NT/ND no Le edema, clubbing or cyanosis no flank pain CBC, BMP 03/29/19 07:07 03/29/19 07:07 Current Medications Albuterol Sulfate (Ventolin 0.083% Nebulizer Soln -) 1 amp NEB Q6H PRN PRN Reason: SHORT OF BREATH/WHEEZING Amlodipine Besylate (Norvasc -) 5 mg PO DAILY [facility] Last Admin: 03/29/19 09:51 Dose: 5 mg Bacitracin (Bacitracin -) 1 applic TP DAILY [facility] Last Admin: 03/29/19 09:52 Dose: 1 applic Budesonide/Formoterol Fumarate (Symbicort 160/4.5mcg -) 1 puff IH BID [facility] Last Admin: 03/29/19 10:05 Dose: 1 puff Carvedilol (Coreg -) 25 mg PO BID [facility] Last Admin: 03/29/19 09:51 Dose: 25 mg Duloxetine HCl (Cymbalta -) 20 mg PO DAILY [facility] Last Admin: 03/29/19 09:52 Dose: 20 mg Heparin Sodium (Porcine) (Heparin -) 5,000 unit SQ TID [facility] Last Admin: 03/29/19 06:34 Dose: 5,000 unit Hydroxychloroquine Sulfate (Plaquenil -) 400 mg PO BID [facility] Last Admin: 03/29/19 09:52 Dose: 400 mg Sodium Chloride (Normal Saline -) 1,000 mls @ 100 mls/hr IV ASDIR [facility] Last Admin: 03/29/19 10:05 Dose: 100 mls/hr Insulin Aspart (Novolog Vial Sliding Scale -) 1 vial SQ [facility]; Protocol Last Admin: 03/29/19 11:23 Dose: 6 units Insulin Detemir (Levemir Vial) 10 units SQ [facility] Last Admin: 03/28/19 21:23 Dose: 10 units Montelukast Sodium (Singulair -) 10 mg PO HS [facility] Last Admin: 03/28/19 21:25 Dose: 10 mg Non-Formulary Medication (Mesalamine [Pentasa]) 1,000 mg PO QID [facility] Oxycodone HCl (Roxicodone -) 5 mg PO Q8H PRN PRN Reason: PAIN LEVEL 7 - 10 Last Admin: 03/28/19 21:25 Dose: 5 mg Pantoprazole Sodium (Protonix -) 40 mg PO DAILY [facility] Last Admin: 03/29/19 09:52 Dose: 40 mg Pregabalin (Lyrica -) 75 mg PO TID [facility] Last Admin: 03/29/19 06:34 Dose: 75 mg Tamoxifen Citrate (Tamoxifen Citrate) 20 mg PO DAILY [facility] Last Admin: 03/29/19 09:52 Dose: 20 mg 58 year old woman with with history of CKD stage 4, DM on insulin, hypertension , Asthma, Ra, breast cancer s/p radiation therapy who presented with fall at home and tremors and noted to have Cr of 4. Pt denies any changes in urine output, N/V/D, NSAID use, flank pain, dysuria, frequency, skin rash or change in appetite. 1. CKD stage 4 with elevated Cr compared to baseline 2. Mechanical falls 3. Tremors 4. Acute on chronic anemia 5. Hypertension 6. 

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
--- NOTE | 2019-03-29 14:09 | PN ---
Progress Note, Physician History of Present Illness: stable no new issues wbc normalized - Current Medication List Current Medications: Active Medications Albuterol Sulfate (Ventolin 0.083% Nebulizer Soln -) 1 amp NEB Q6H PRN PRN Reason: SHORT OF BREATH/WHEEZING Amlodipine Besylate (Norvasc -) 5 mg PO DAILY [facility] Last Admin: 03/29/19 09:51 Dose: 5 mg Bacitracin (Bacitracin -) 1 applic TP DAILY [facility] Last Admin: 03/29/19 09:52 Dose: 1 applic Budesonide/Formoterol Fumarate (Symbicort 160/4.5mcg -) 1 puff IH BID [facility] Last Admin: 03/29/19 10:05 Dose: 1 puff Carvedilol (Coreg -) 25 mg PO BID [facility] Last Admin: 03/29/19 09:51 Dose: 25 mg Duloxetine HCl (Cymbalta -) 20 mg PO DAILY [facility] Last Admin: 03/29/19 09:52 Dose: 20 mg Heparin Sodium (Porcine) (Heparin -) 5,000 unit SQ TID [facility] Last Admin: 03/29/19 06:34 Dose: 5,000 unit Hydroxychloroquine Sulfate (Plaquenil -) 400 mg PO BID [facility] Last Admin: 03/29/19 09:52 Dose: 400 mg Sodium Chloride (Normal Saline -) 1,000 mls @ 100 mls/hr IV ASDIR [facility] Last Admin: 03/29/19 10:05 Dose: 100 mls/hr Insulin Aspart (Novolog Vial Sliding Scale -) 1 vial SQ TIDAC [facility]; Protocol Insulin Aspart (Novolog Vial Sliding Scale -) 1 vial SQ HS [facility]; Protocol Insulin Detemir (Levemir Vial) 18 units SQ HS [facility] Montelukast Sodium (Singulair -) 10 mg PO HS [facility] Last Admin: 03/28/19 21:25 Dose: 10 mg Non-Formulary Medication (Mesalamine [Pentasa]) 1,000 mg PO QID [facility] Oxycodone HCl (Roxicodone -) 5 mg PO Q8H PRN PRN Reason: PAIN LEVEL 7 - 10 Last Admin: 03/28/19 21:25 Dose: 5 mg Pantoprazole Sodium (Protonix -) 40 mg PO DAILY [facility] Last Admin: 03/29/19 09:52 Dose: 40 mg Pregabalin (Lyrica -) 75 mg PO TID [facility] Last Admin: 03/29/19 06:34 Dose: 75 mg Tamoxifen Citrate (Tamoxifen Citrate) 20 mg PO DAILY [facility] Last Admin: 03/29/19 09:52 Dose: 20 mg - Objective Vital Signs: Vital Signs Temperature 98.7 F 03/29/19 10:00 Pulse Rate 62 03/29/19 10:00 Respiratory Rate 19 03/29/19 10:00 Blood Pressure 114/53 L 03/29/19 10:00 O2 Sat by Pulse Oximetry (%) 98 03/29/19 09:00 Constitutional: Yes: No Distress, Calm Cardiovascular: Yes: S1, S2 Respiratory: Yes: Regular, CTA Bilaterally Gastrointestinal: Yes: Normal Bowel Sounds, Soft Musculoskeletal: Yes: WNL Extremities: Yes: Other Wound/Incision: Yes: Other (Other (abd wound healed, no erythema/pain/drainage Rt great toe dark eschar, no erythema/edema/tenderness/drainage)) Neurological: Yes: Alert, Oriented Psychiatric: Yes: Alert, Oriented Labs: CBC, BMP 03/29/19 07:07 03/29/19 07:07 INR, PTT INR 0.98 (0.83-1.09) 03/28/19 09:50 Assessment/Plan Problem List - Problems (1) Hyperglycemia Code(s): R73.9 - HYPERGLYCEMIA, UNSPECIFIED (2) Diabetes Code(s): E11.9 - TYPE 2 DIABETES MELLITUS WITHOUT COMPLICATIONS Qualifiers: (3) [place] (acute kidney injury) Code(s): N17.9 - ACUTE KIDNEY FAILURE, UNSPECIFIED Assessment/Plan 58 y.o. female with PMH of IDDM, HTN, CKD, RA, fibromyalgia, chronic LBP, Breast CA s/p RT, strangulated hernia s/p repair during last hospital admission (03/01/19 - 03/06/19) and a Rt 1st toe wound presented to the ER s/p fall in the bathroom at home with c/o b/l hip pain s/p Fall Hip Pain Rt toe ulcer Uncontrolled DM Hyperglycemia [place] on CKD Hx of Breast CA s/p RT Hx of strangulated hernia s/p repair - site healed RA Fibromyalgia HTN Chronic LBP plan continue current mgmt wound care rest as per the team
--- NOTE | 2019-03-29 16:09 | PN ---
Physical Exam: SUBJECTIVE: Patient seen and examined. She reports whole body soreness after her fall. She denies fever, chills, shortness of breath, chest pain, abdominal pain, nausea, or vomiting. OBJECTIVE: Vital Signs Period Temp Pulse Resp BP Sys/Ronquillo Pulse Ox Last 24 Hr 97.8 F-98.7 F 62-73 18-20 113-142/53-62 98-98 GENERAL: The patient is awake, alert, and fully oriented, in no acute distress. HEAD: Normal with no signs of trauma. EYES: PERRL, extraocular movements intact, conjunctiva clear. ENT: Ears normal, nares patent, moist mucous membranes. NECK: Trachea midline, full range of motion LUNGS: Clear to auscultation bilaterally, no wheezes HEART: Regular rate and rhythm, no murmur ABDOMEN: Soft, obese, nontender, nondistended, normoactive bowel sounds EXTREMITIES: Warm, well-perfused, no edema. Right 1st toe dried ulcer on medial surface. NEUROLOGICAL: Cranial nerves II through XII grossly intact. Normal speech. PSYCH: Normal mood, normal affect. SKIN: Warm, dry, normal turgor Laboratory Results - last 24 hr 03/28/19 03/28/19 03/29/19 16:52 21:23 05:42 WBC RBC Hgb Hct MCV MCH MCHC RDW Plt Count MPV Absolute Neuts (auto) Neutrophils % Lymphocytes % Monocytes % Eosinophils % Basophils % Nucleated RBC % Sodium Potassium Chloride Carbon Dioxide Anion Gap BUN Creatinine Est GFR (CKD-EPI)AfAm Est GFR (CKD-EPI)NonAf POC Glucometer 367 253 303 Random Glucose Calcium 03/29/19 03/29/19 03/29/19 07:07 07:07 11:20 WBC 7.6 RBC 3.49 L Hgb 9.3 L Hct 28.7 L MCV 82.2 MCH 26.8 MCHC 32.6 RDW 14.2 Plt Count 185 D MPV 9.8 Absolute Neuts (auto) 5.2 Neutrophils % 67.9 Lymphocytes % 21.9 D Monocytes % 5.0 Eosinophils % 4.2 D Basophils % 1.0 Nucleated RBC % 0 Sodium 137 Potassium 4.0 Chloride 102 Carbon Dioxide 26 Anion Gap 9 BUN 34.3 H Creatinine 3.7 H Est GFR (CKD-EPI)AfAm 14.89 Est GFR (CKD-EPI)NonAf 12.85 POC Glucometer 274 Random Glucose 297 H Calcium 9.3 Active Medications Generic Name Dose Route Start Last Admin Trade Name Freq PRN Reason Stop Dose Admin Albuterol Sulfate 1 amp 03/28/19 19:04 Ventolin 0.083% Nebulizer Soln - NEB Q6H PRN SHORT OF BREATH/WHEEZING Amlodipine Besylate 5 mg 03/29/19 10:00 03/29/19 09:51 Norvasc - PO 5 mg DAILY [facility] Administration Bacitracin 1 applic 03/29/19 10:00 03/29/19 09:52 Bacitracin - TP 1 applic DAILY [facility] Administration Budesonide/Formoterol Fumarate 1 puff 03/28/19 22:00 03/29/19 10:05 Symbicort 160/4.5mcg - IH 1 puff BID [facility] Administration Carvedilol 25 mg 03/28/19 22:00 03/29/19 09:51 Coreg - PO 25 mg BID [facility] Administration Duloxetine HCl 20 mg 03/29/19 10:00 03/29/19 09:52 Cymbalta - PO 20 mg DAILY [facility] Administration Heparin Sodium (Porcine) 5,000 unit 03/28/19 14:00 03/29/19 14:41 Heparin - SQ 5,000 unit TID [facility] Administration Hydroxychloroquine Sulfate 400 mg 03/28/19 22:00 03/29/19 09:52 Plaquenil - PO 400 mg BID [facility] Administration Sodium Chloride 1,000 mls @ 100 mls/hr 03/28/19 07:00 03/29/19 10:05 Normal Saline - IV 100 mls/hr ASDIR [facility] Administration Insulin Aspart 1 vial 03/29/19 16:30 Novolog Vial Sliding Scale - SQ TIDAC [facility] Protocol Insulin Aspart 1 vial 03/29/19 22:00 Novolog Vial Sliding Scale - SQ HS [facility] Protocol Insulin Detemir 18 units 03/29/19 22:00 Levemir Vial SQ HS [facility] Montelukast Sodium 10 mg 03/28/19 22:00 03/28/19 21:25 Singulair - PO 10 mg HS [facility] Administration Non-Formulary Medication 1,000 mg 03/28/19 14:00 Mesalamine [Pentasa] PO QID [facility] Oxycodone HCl 5 mg 03/28/19 11:41 03/28/19 21:25 Roxicodone - PO 5 mg Q8H PRN Administration PAIN LEVEL 7 - 10 Pantoprazole Sodium 40 mg 03/29/19 10:00 03/29/19 09:52 Protonix - PO 40 mg DAILY [facility] Administration Pregabalin 75 mg 03/28/19 14:15 03/29/19 14:40 Lyrica - PO 75 mg TID [facility] Administration Tamoxifen Citrate 20 mg 03/29/19 10:00 03/29/19 09:52 Tamoxifen Citrate PO 20 mg DAILY [facility] Administration ASSESSMENT/PLAN: Ms. Castanon is a 58y/o female with IDDM2, HTN, CKD, asthma, RA, breast cancer s/p radiation, fibromyalgia, and recent incarcerated hernia s/p repair who presents following a mechanical fall. #hyperglycemia 2/2 uncontrolled IDDM2 -BGM 706 at admission -SSI -Levemir 18U -BGMs -NS 100mL/hr -endocrine following #[place] on CKD, improving -NS -check FeNa #right 1st toe ulcer, chronic -monitor #HTN -amlodipine -carvedilol #asthma -albuterol -Symbicort -singulair #fibromyalgia -duloxetine -pregabalin -oxycodone #RA -Plaquenil -mesalamine #HLD -atorvastatin DVT Ppx heparin FEN NS 100mL/hr monitor K, Cr diabetic diet Visit type - Emergency Visit Emergency Visit: Yes ED Registration Date: 03/28/19 Care time: The patient presented to the Emergency Department on the above date and was hospitalized for further evaluation of their emergent condition. - New Patient This patient is new to me today: Yes Date on this admission: 03/29/19 - Critical Care Critical Care patient: No - Discharge Referral Referred to [facility] Med [facility] No ATTENDING PHYSICIAN STATEMENT I saw and evaluated the patient. I reviewed the resident's note and discussed the case with the resident. I agree with the resident's findings and plan as documented. SUBJECTIVE: OBJECTIVE: ASSESSMENT AND PLAN:
[2019-03-29 16:36] LABS: EPI CELLS 4.4 /HPF (0-5/HPF); HYALINE CASTS 9 /lpf (0-8); URINE APPEARANCE CLEAR; URINE BACTERIA 2.9 /hpf (NEGATIVE); URINE BILIRUBIN NEGATIVE (NEGATIVE); URINE COLOR YELLOW; URINE GLUCOSE (UA) 2+ (NEGATIVE); URINE KETONE NEGATIVE (NEGATIVE); URINE LEUK ESTERASE 1+ (NEGATIVE); URINE NITRITE NEGATIVE (NEGATIVE); URINE PROTEIN 3+ (NEGATIVE); URINE RBC 5 /hpf (0-4); URINE UROBILINOGEN 0.2 mg/dL (0.2-1.0); URINE WBC 8 /hpf (0-5)
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
--- NOTE | 2019-03-29 18:26 | PN ---
Teaching Attending Note Name of Resident: Diana Jackson ATTENDING PHYSICIAN STATEMENT I saw and evaluated the patient. I reviewed the resident's note and discussed the case with the resident. I agree with the resident's findings and plan as documented. SUBJECTIVE: Patient is a 58 y/o F with a PMHx of IDDM, HTN, CKD, asthma, RA, breast cancer s/p radiation, fibromyalgia, recent incarcerated hernia (s/p surgical repair in February 2019) who presented to our hospital due to a mechanical fall and was found to have FS of 700's Vital Signs Temperature 97.8 F 03/29/19 15:03 Pulse Rate 68 03/29/19 15:03 Respiratory Rate 18 03/29/19 15:03 Blood Pressure 113/61 03/29/19 15:03 O2 Sat by Pulse Oximetry (%) 98 03/29/19 09:00 GENERAL: The patient is awake, alert, and fully oriented, in no acute distress. HEAD: Normal with no signs of trauma. EYES: PERRL, extraocular movements intact, conjunctiva clear. ENT: Ears normal, moist mucous membranes. NECK: Trachea midline, full range of motion LUNGS: Clear to auscultation bilaterally, no wheezes HEART: Regular rate and rhythm, no murmur ABDOMEN: Soft, obese, nontender, nondistended, normoactive bowel sounds EXTREMITIES: Warm, well-perfused, no edema. Right 1st toe dried ulcer on medial surface. NEUROLOGICAL: Cranial nerves II through XII grossly intact. Normal speech. PSYCH: Normal mood, normal affect. SKIN: Warm, dry, normal turgor CBCD WBC 7.6 K/mm3 (4.0-10.0) 03/29/19 07:07 RBC 3.49 M/mm3 (3.60-5.2) L 03/29/19 07:07 Hgb 9.3 GM/dL (10.7-15.3) L 03/29/19 07:07 Hct 28.7 % (32.4-45.2) L 03/29/19 07:07 MCV 82.2 fl (80-96) 03/29/19 07:07 MCHC 32.6 g/dl (32.0-36.0) 03/29/19 07:07 RDW 14.2 % (11.6-15.6) 03/29/19 07:07 Plt Count 185 K/MM3 (134-434) D 03/29/19 07:07 MPV 9.8 fl (7.5-11.1) 03/29/19 07:07 CMP Sodium 137 mmol/L (136-145) 03/29/19 07:07 Potassium 4.0 mmol/L (3.5-5.1) 03/29/19 07:07 Chloride 102 mmol/L (98-107) 03/29/19 07:07 Carbon Dioxide 26 mmol/L (21-32) 03/29/19 07:07 Anion Gap 9 MMOL/L (8-16) 03/29/19 07:07 BUN 34.3 mg/dL (7-18) H 03/29/19 07:07 Creatinine 3.7 mg/dL (0.55-1.3) H 03/29/19 07:07 Random Glucose 297 mg/dL (74-106) H 03/29/19 07:07 Calcium 9.3 mg/dL (8.5-10.1) 03/29/19 07:07 Total Bilirubin 0.3 mg/dL (0.2-1) 03/28/19 09:50 AST 9 U/L (15-37) L 03/28/19 09:50 ALT 18 U/L (13-61) 03/28/19 09:50 Alkaline Phosphatase 109 U/L (45-117) 03/28/19 09:50 Total Protein 7.4 g/dl (6.4-8.2) 03/28/19 09:50 Albumin 2.6 g/dl (3.4-5.0) L 03/28/19 09:50 CARDIAC ENZYMES Creatine Kinase 89 U/L (26-192) 03/28/19 01:22 Troponin I < 0.02 ng/ml (0.00-0.05) 03/28/19 01:22 Current Medications Generic Name Dose Route Start Last Admin Trade Name Freq PRN Reason Stop Dose Admin Albuterol Sulfate 1 amp 03/28/19 19:04 Ventolin 0.083% Nebulizer Soln - NEB Q6H PRN SHORT OF BREATH/WHEEZING Amlodipine Besylate 10 mg 03/30/19 10:00 Norvasc - PO DAILY VINCE Bacitracin 1 applic 03/29/19 10:00 03/29/19 09:52 Bacitracin - TP 1 applic DAILY VINCE Administration Budesonide/Formoterol Fumarate 1 puff 03/28/19 22:00 03/29/19 10:05 Symbicort 160/4.5mcg - IH 1 puff BID VINCE Administration Carvedilol 25 mg 03/28/19 22:00 03/29/19 09:51 Coreg - PO 25 mg BID VINCE Administration Duloxetine HCl 20 mg 03/29/19 10:00 03/29/19 09:52 Cymbalta - PO 20 mg DAILY VINCE Administration Heparin Sodium (Porcine) 5,000 unit 03/28/19 14:00 03/29/19 14:41 Heparin - SQ 5,000 unit TID VINCE Administration Hydroxychloroquine Sulfate 400 mg 03/28/19 22:00 03/29/19 09:52 Plaquenil - PO 400 mg BID VINCE Administration Sodium Chloride 1,000 mls @ 100 mls/hr 03/28/19 07:00 03/29/19 10:05 Normal Saline - IV 100 mls/hr ASDIR VINCE Administration Insulin Aspart 1 vial 03/29/19 16:30 03/29/19 17:12 Novolog Vial Sliding Scale - SQ 12 units TIDAC VINCE Administration Protocol Insulin Aspart 1 vial 03/29/19 22:00 Novolog Vial Sliding Scale - SQ HS VINCE Protocol Insulin Detemir 18 units 03/29/19 22:00 Levemir Vial SQ HS VINCE Montelukast Sodium 10 mg 03/28/19 22:00 03/28/19 21:25 Singulair - PO 10 mg HS VINCE Administration Non-Formulary Medication 1,000 mg 03/28/19 14:00 Mesalamine [Pentasa] PO QID VINCE Oxycodone HCl 5 mg 03/28/19 11:41 03/28/19 21:25 Roxicodone - PO 5 mg Q8H PRN Administration PAIN LEVEL 7 - 10 Pantoprazole Sodium 40 mg 03/29/19 10:00 03/29/19 09:52 Protonix - PO 40 mg DAILY VINCE Administration Pregabalin 75 mg 03/28/19 14:15 03/29/19 14:40 Lyrica - PO 75 mg TID VINCE Administration Tamoxifen Citrate 20 mg 03/29/19 10:00 03/29/19 09:52 Tamoxifen Citrate PO 20 mg DAILY VINCE Administration Home Medications Medication Instructions Recorded Carvedilol 25 mg PO BID 10/22/14 Montelukast Na [Singulair -] 10 mg PO HS 10/22/14 Pregabalin [Lyrica -] 75 mg PO TID 10/22/14 Cholecalciferol (Vitamin D3) 50,000 unit PO WEEKLY 01/26/16 [Vitamin D3] Tamoxifen Citrate 20 mg PO DAILY 05/24/16 Albuterol 0.083% Nebulizer Page 1 amp NEB DAILY 09/18/17 [Ventolin 0.083% Nebulizer Soln -] Budesonide/Formeterol Fumarate 2 inh PO BID 09/18/17 [SYMBICORT 160/4.5mcg -] Hydroxychloroquine Sulfate 400 mg PO BID 09/18/17 [Plaquenil] Mesalamine [Pentasa] 1,000 mg PO QID 09/18/17 Pantoprazole Sodium [Protonix] 40 mg PO DAILY 09/18/17 Folic Acid - 1 mg PO DAILY #30 tablet 09/26/17 Insulin Glargine,Hum.rec.anlog 25 unit SQ BID 11/26/18 [Lantus] Atorvastatin Ca [Lipitor] 20 mg PO HS 03/01/19 Duloxetine HCl 20 mg PO DAILY 03/01/19 Acetaminophen [Tylenol .Regular 650 mg PO Q6H PRN #15 tablet 03/05/19 Strength -] Amlodipine Besylate [Norvasc -] 5 mg PO DAILY #30 tablet 03/05/19 Bacitracin - [Bacitracin Topical 1 applic TP DAILY #30 applic 03/05/19 Ointment -] Insulin Lispro [Humalog] 25 unit SQ BID #15 ml 03/06/19 Oxycodone HCl [Roxicodone] 5 mg PO Q8H PRN #9 tablet MDD 3 tab 03/06/19 Amlodipine Besylate [Norvasc -] 10 mg PO DAILY 03/29/19 Ergocalciferol (Vitamin D2) 50,000 unit PO WEEKLY 03/29/19 [Vitamin D2] Insulin Glargine,Hum.rec.anlog 28 units SQ BID 03/29/19 [Basaglmassimo Barrett U-100] Laboratory Tests 03/28/19 03/28/19 03/28/19 01:22 01:22 09:50 WBC 11.7 H 11.7 H ESR 89 H Sodium 130 L Potassium BUN Creatinine Random Glucose 706 H* Hemoglobin A1c % Triglycerides Cholesterol Total LDL Cholesterol HDL Cholesterol Beta-Hydroxybutyrate 5.6 H 03/28/19 03/28/19 03/28/19 09:50 09:50 09:50 WBC ESR Sodium Potassium 3.3 L BUN Creatinine Random Glucose Hemoglobin A1c % 12.2 H Triglycerides 235 H Cholesterol 114 Total LDL Cholesterol 57 HDL Cholesterol 37 L Beta-Hydroxybutyrate 03/29/19 03/29/19 07:07 07:07 WBC 7.6 ESR Sodium Potassium BUN 34.3 H Creatinine 3.7 H Random Glucose Hemoglobin A1c % Triglycerides Cholesterol Total LDL Cholesterol HDL Cholesterol Beta-Hydroxybutyrate Assessment and plan: Patient is a 58y/of with PMhx of IDDM2, HTN, CKD, asthma, RA, breast cancer s/ p radiation, fibromyalgia, and recent incarcerated hernia s/p repair who presents following a mechanical fall and was found to have sugar of 700's. #S/P Fall : reviewed the xrays , no fx is noted. #hyperglycemia: Uncontrolled BS with hA1c of 12, derrek get endocrine consult. #[place] on CKD, improving, nephro consult appreciated , on IVF NS #right 1st toe ulcer, chronic , on the case #HTN continue amlodipine, carvedilol #Hx of asthma, continue albuterol/symbicort/singuilar #fibromyalgia continue home meds duloxetine/pregabalin/oxycodone #RA continue Plaquenil/mesalamine #HLD: atorvastatin #Hx of Breast Cancer on tamoxifen continue DVT Ppx: heparin
[2019-03-29] MEDS: INSULIN (LEVEMIR) 100 UNITS/ML UNITS SQ SCH (21:47)
[2019-03-29] MEDS: MONTELUKAST NA 10 MG TABLET PO SCH (21:51)
[2019-03-29] MEDS ORDERED: INSULIN (LEVEMIR) 100 UNITS/ML UNITS SQ SCH (22:00)
[2019-03-29] MEDS ORDERED: INSULIN SLIDING SCALE (NOVOLOG) 1 VIAL SQ SCH (22:00)
[2019-03-30] MEDS: PREGABALIN 25 MG CAPSULE PO SCH ×3 (05:58→21:50)
[2019-03-30] MEDS: SODIUM CHLORIDE 1,000 ML IV SCH ×2 (05:58→08:21)
[2019-03-30] MEDS: HEPARIN NA (PORCINE) 5,000 UNITS/ML 1ML VIAL SQ SCH ×3 (05:59→21:51)
[2019-03-30] MEDS: INSULIN SLIDING SCALE (NOVOLOG) 1 VIAL SQ SCH ×5 (06:00→21:59)
[2019-03-30] MEDS ORDERED: ERGOCALCIFEROL (VIT D2) 50,000 UNIT (1.25 MG) CAPSULE PO SCH (07:30)
[2019-03-30 08:49] LABS: BASO % 0.9 % (0-2.0); EOS % 4.8 % (0-4.5); HEMATOCRIT 28.4 % (32.4-45.2); HEMOGLOBIN 9.3 GM/dL (10.7-15.3); LYMPH % 19.7 % (8-40); MCH 26.6 pg (25.7-33.7); MCHC 32.9 g/dl (32.0-36.0); MEAN CELL VOLUME 80.7 fl (80-96); MEAN PLT VOLUME 9.3 fl (7.5-11.1); MONO % 5.4 % (3.8-10.2); NEUT % 69.2 % (42.8-82.8); PLATELET COUNT 174 K/MM3 (134-434); RBC 3.51 M/mm3 (3.60-5.2); RDW 14.3 % (11.6-15.6); WHITE BLOOD COUNT 6.6 K/mm3 (4.0-10.0)
[2019-03-30 09:17] LABS: ALBUMIN 2.3 g/dl (3.4-5.0); BILIRUBIN,TOTAL 0.3 mg/dL (0.2-1); BLOOD UREA NITROGEN 29.8 mg/dL (7-18); CREATININE 3.2 mg/dL (0.55-1.3); MAGNESIUM 1.9 mg/dL (1.8-2.4); PHOSPHOROUS 2.9 mg/dL (2.5-4.9); POTASSIUM 3.6 mmol/L (3.5-5.1); TOT PROT 6.4 g/dl (6.4-8.2)
[2019-03-30] MEDS ORDERED: PT OWN MED DRAWER 7, Y5N ONE (10:10)
[2019-03-30] MEDS: CARVEDILOL 12.5 MG TABLET (FP) PO SCH ×2 (10:12→21:51)
[2019-03-30] MEDS: PANTOPRAZOLE 40 MG TABLET (FP) PO SCH (10:12)
[2019-03-30] MEDS: DULoxetine HCL 20 MG CAPSULE.DR PO SCH (10:12)
[2019-03-30] MEDS: amLODIPine BESYLATE 10 MG TABLET (FP) PO SCH (10:12)
[2019-03-30] MEDS: oxyCODONE HCL 5 MG TABLET PO PRN (10:13)
[2019-03-30] MEDS: FOLIC ACID 1 MG TABLET (FP) PO SCH (10:13)
[2019-03-30] MEDS: HYDROXYCHLOROQUINE SO4 200 MG TABLET (FP) PO SCH ×2 (10:13→21:50)
[2019-03-30] MEDS: POLYETHYLENE GLYCOL 3350 119 GM BTL PO SCH (10:13)
[2019-03-30] MEDS: BUDESONIDE/FORMETEROL FUMARATE 160/4.5 mcg INHALER IH SCH ×2 (10:18→21:49)
--- NOTE | 2019-03-30 10:54 | PN ---
Progress Note (short form) - Note Progress Note: Feels better c/o tremors of hands Vital Signs Period Temp Pulse Resp BP Sys/Ronquillo Pulse Ox Last 24 Hr 97.7 F-98.7 F 61-78 18-20 113-157/61-98 98 PE: AOx3 Neck: Supple, No JVDHEH HEENT: EOMI Lungs: CTA CVS: S1S2 Abd: Benign Ext: No edema, + Tremors Neuro: No focal deficit CMP Sodium 142 mmol/L (136-145) 03/30/19 07:25 Potassium 3.6 mmol/L (3.5-5.1) 03/30/19 07:25 Chloride 111 mmol/L (98-107) H 03/30/19 07:25 Carbon Dioxide 24 mmol/L (21-32) 03/30/19 07:25 Anion Gap 8 MMOL/L (8-16) 03/30/19 07:25 BUN 29.8 mg/dL (7-18) H 03/30/19 07:25 Creatinine 3.2 mg/dL (0.55-1.3) H 03/30/19 07:25 Est GFR (CKD-EPI)AfAm 17.75 03/30/19 07:25 Est GFR (CKD-EPI)NonAf 15.31 03/30/19 07:25 POC Glucometer 144 UNITS (80-120) 03/30/19 05:56 Random Glucose 182 mg/dL (74-106) H 03/30/19 07:25 Hemoglobin A1c % 12.2 % (4.2-6.3) H 03/28/19 09:50 Calcium 9.0 mg/dL (8.5-10.1) 03/30/19 07:25 Phosphorus 2.9 mg/dL (2.5-4.9) 03/30/19 07:25 Magnesium 1.9 mg/dL (1.8-2.4) 03/30/19 07:25 Total Bilirubin 0.3 mg/dL (0.2-1) 03/30/19 07:25 AST 12 U/L (15-37) L 03/30/19 07:25 ALT 14 U/L (13-61) 03/30/19 07:25 Alkaline Phosphatase 80 U/L (45-117) 03/30/19 07:25 Creatine Kinase 89 U/L (26-192) 03/28/19 01:22 Troponin I < 0.02 ng/ml (0.00-0.05) 03/28/19 01:22 C-Reactive Protein < 0.3 MG/DL (0.00-0.3) 03/28/19 09:50 Total Protein 6.4 g/dl (6.4-8.2) 03/30/19 07:25 Albumin 2.3 g/dl (3.4-5.0) L 03/30/19 07:25 Triglycerides 235 mg/dL (0-150) H 03/28/19 09:50 Cholesterol 114 mg/dL (50-200) 03/28/19 09:50 Total LDL Cholesterol 57 mg/dL (5-100) 03/28/19 09:50 HDL Cholesterol 37 mg/dL (40-60) L 03/28/19 09:50 Beta-Hydroxybutyrate 5.6 mg/dL (0.2-2.8) H 03/28/19 01:22 Current Medications Generic Name Dose Route Start Last Admin Trade Name Freq PRN Reason Stop Dose Admin Albuterol Sulfate 1 amp 03/28/19 19:04 Ventolin 0.083% Nebulizer Soln - NEB Q6H PRN SHORT OF BREATH/WHEEZING Amlodipine Besylate 10 mg 03/30/19 10:00 03/30/19 10:12 Norvasc - PO 10 mg DAILY VNICE Administration Atorvastatin Calcium 20 mg 03/30/19 22:00 Lipitor - PO HS VINCE Bacitracin 1 applic 03/29/19 10:00 03/29/19 09:52 Bacitracin - TP 1 applic DAILY VINCE Administration Budesonide/Formoterol Fumarate 1 puff 03/28/19 22:00 03/30/19 10:18 Symbicort 160/4.5mcg - IH 1 puff BID VINCE Administration Carvedilol 25 mg 03/28/19 22:00 03/30/19 10:12 Coreg - PO 25 mg BID VINCE Administration Duloxetine HCl 20 mg 03/29/19 10:00 03/30/19 10:12 Cymbalta - PO 20 mg DAILY VINCE Administration Ergocalciferol 50,000 unit 03/30/19 07:30 03/30/19 10:12 Drisdol - PO 50,000 unit Tu VINCE Administration Folic Acid 1 mg 03/30/19 10:00 03/30/19 10:13 Folic Acid - PO 1 mg DAILY VINCE Administration Heparin Sodium (Porcine) 5,000 unit 03/28/19 14:00 03/30/19 05:59 Heparin - SQ 5,000 unit TID VINCE Administration Hydroxychloroquine Sulfate 400 mg 03/28/19 22:00 03/30/19 10:13 Plaquenil - PO 400 mg BID VINCE Administration Sodium Chloride 1,000 mls @ 100 mls/hr 03/28/19 07:00 03/30/19 08:21 Normal Saline - IV Not Given ASDIR [facility] Insulin Aspart 1 vial 03/30/19 07:00 03/30/19 08:20 Novolog Vial Sliding Scale - SQ Not Given ACHS [facility] Protocol Insulin Detemir 18 units 03/29/19 22:00 03/29/19 21:47 Levemir Vial SQ 18 units HS VINCE Administration Montelukast Sodium 10 mg 03/28/19 22:00 03/29/19 21:51 Singulair - PO 10 mg HS VINCE Administration Non-Formulary Medication 1,000 mg 03/28/19 14:00 Mesalamine [Pentasa] PO QID VINCE Oxycodone HCl 5 mg 03/28/19 11:41 03/30/19 10:13 Roxicodone - PO 5 mg Q8H PRN Administration PAIN LEVEL 7 - 10 Pantoprazole Sodium 40 mg 03/29/19 10:00 03/30/19 10:12 Protonix - PO 40 mg DAILY VINCE Administration Polyethylene Glycol 17 gm 03/30/19 10:00 03/30/19 10:13 Miralax (For Daily Use) - PO 17 gm DAILY VINCE Administration Pregabalin 75 mg 03/28/19 14:15 03/30/19 05:58 Lyrica - PO 75 mg TID VINCE Administration AP: Uncontrolled T2DM BGM 706 on admission Levemir 18 units daily at HS Novolog coverage Nutrition cosult Diet exercise discussed [place] on CKD Right Toe Ulcer Local wound care Abx as necessary HTN
[2019-03-30] MEDS ORDERED: INSULIN (NOVOLOG) ASPART 100 UNITS/ML 10ML VIAL ONE (11:41)
[2019-03-30] MEDS: CHOLECALCIFEROL (VIT D3) 1,000 UNIT (25 MCG) TABLET PO SCH (12:05)
[2019-03-30] MEDS: BACITRACIN 15 GM TUBE TOPICAL OINTMENT TP SCH (12:05)
--- NOTE | 2019-03-30 12:56 | PN ---
Progress Note, Physician History of Present Illness: stable no new issues - Current Medication List Current Medications: Active Medications Albuterol Sulfate (Ventolin 0.083% Nebulizer Soln -) 1 amp NEB Q6H PRN PRN Reason: SHORT OF BREATH/WHEEZING Amlodipine Besylate (Norvasc -) 10 mg PO DAILY [facility] Last Admin: 03/30/19 10:12 Dose: 10 mg Atorvastatin Calcium (Lipitor -) 20 mg PO [facility] Bacitracin (Bacitracin -) 1 applic TP DAILY [facility] Last Admin: 03/30/19 12:05 Dose: 1 applic Budesonide/Formoterol Fumarate (Symbicort 160/4.5mcg -) 1 puff IH BID [facility] Last Admin: 03/30/19 10:18 Dose: 1 puff Carvedilol (Coreg -) 25 mg PO BID [facility] Last Admin: 03/30/19 10:12 Dose: 25 mg Cholecalciferol (Vitamin D3 -) 2,000 unit PO DAILY [facility] Last Admin: 03/30/19 12:05 Dose: 2,000 unit Duloxetine HCl (Cymbalta -) 20 mg PO DAILY [facility] Last Admin: 03/30/19 10:12 Dose: 20 mg Folic Acid (Folic Acid -) 1 mg PO DAILY [facility] Last Admin: 03/30/19 10:13 Dose: 1 mg Heparin Sodium (Porcine) (Heparin -) 5,000 unit SQ TID [facility] Last Admin: 03/30/19 05:59 Dose: 5,000 unit Hydroxychloroquine Sulfate (Plaquenil -) 400 mg PO BID [facility] Last Admin: 03/30/19 10:13 Dose: 400 mg Sodium Chloride (Normal Saline -) 1,000 mls @ 100 mls/hr IV ASDIR [facility] Last Admin: 03/30/19 08:21 Dose: Not Given Insulin Aspart (Novolog Vial Sliding Scale -) 1 vial SQ [facility]; Protocol Last Admin: 03/30/19 12:05 Dose: 10 units Insulin Detemir (Levemir Vial) 18 units SQ [facility] Last Admin: 03/29/19 21:47 Dose: 18 units Montelukast Sodium (Singulair -) 10 mg PO HS [facility] Last Admin: 03/29/19 21:51 Dose: 10 mg Non-Formulary Medication (Mesalamine [Pentasa]) 1,000 mg PO QID [facility] Oxycodone HCl (Roxicodone -) 2.5 mg PO Q6H PRN PRN Reason: PAIN LEVEL 7 - 10 Pantoprazole Sodium (Protonix -) 40 mg PO DAILY [facility] Last Admin: 03/30/19 10:12 Dose: 40 mg Polyethylene Glycol (Miralax (For Daily Use) -) 17 gm PO DAILY [facility] Last Admin: 03/30/19 10:13 Dose: 17 gm Pregabalin (Lyrica -) 25 mg PO TID [facility] - Objective Vital Signs: Vital Signs Temperature 97.7 F 03/30/19 10:00 Pulse Rate 78 03/30/19 10:00 Respiratory Rate 20 03/30/19 10:00 Blood Pressure 157/98 03/30/19 10:00 O2 Sat by Pulse Oximetry (%) 98 03/29/19 21:00 Constitutional: Yes: No Distress, Calm Cardiovascular: Yes: S1, S2 Respiratory: Yes: Regular, CTA Bilaterally Gastrointestinal: Yes: Normal Bowel Sounds, Soft Musculoskeletal: Yes: WNL Extremities: Yes: Other Wound/Incision: Yes: Dressing Dry and Intact Neurological: Yes: Alert, Oriented Psychiatric: Yes: Alert, Oriented Labs: CBC, BMP 03/30/19 07:25 03/30/19 07:25 INR, PTT INR 0.98 (0.83-1.09) 03/28/19 09:50 Assessment/Plan Problem List - Problems (1) Hyperglycemia Code(s): R73.9 - HYPERGLYCEMIA, UNSPECIFIED (2) Diabetes Code(s): E11.9 - TYPE 2 DIABETES MELLITUS WITHOUT COMPLICATIONS Qualifiers: (3) [place] (acute kidney injury) Code(s): N17.9 - ACUTE KIDNEY FAILURE, UNSPECIFIED Assessment/Plan 58 y.o. female with PMH of IDDM, HTN, CKD, RA, fibromyalgia, chronic LBP, Breast CA s/p RT, strangulated hernia s/p repair during last hospital admission (03/01/19 - 03/06/19) and a Rt 1st toe wound presented to the ER s/p fall in the bathroom at home with c/o b/l hip pain s/p Fall Hip Pain Rt toe ulcer Uncontrolled DM Hyperglycemia [place] on CKD Hx of Breast CA s/p RT Hx of strangulated hernia s/p repair - site healed RA Fibromyalgia HTN Chronic LBP plan continue current mgmt wound care rest as per the team
--- NOTE | 2019-03-30 14:06 | PN ---
Physical Exam: SUBJECTIVE: Patient seen and examined. She reports lower back and bilateral hip soreness. She also reports tremor. OBJECTIVE: Vital Signs Period Temp Pulse Resp BP Sys/Ronquillo Pulse Ox Last 24 Hr 97.7 F-98.7 F 61-78 18-20 113-157/52-98 98 GENERAL: The patient is awake, alert, and fully oriented, in no acute distress. HEAD: Normal with no signs of trauma. EYES: PERRL, extraocular movements intact, conjunctiva clear. ENT: Ears normal, nares patent, moist mucous membranes. NECK: Trachea midline, full range of motion LUNGS: Clear to auscultation bilaterally, no wheezes HEART: Regular rate and rhythm, no murmur ABDOMEN: Soft, obese, nontender, nondistended, normoactive bowel sounds BACK: No ecchymosis EXTREMITIES: Warm, well-perfused, no edema. Right 1st toe dried ulcer on medial surface. Mild intermittent tremor of b/l upper extremities NEUROLOGICAL: Cranial nerves II through XII grossly intact. Normal speech. PSYCH: Normal mood, normal affect. SKIN: Warm, dry, normal turgor Laboratory Results - last 24 hr 03/29/19 03/29/19 03/29/19 15:37 15:37 17:11 WBC RBC Hgb Hct MCV MCH MCHC RDW Plt Count MPV Absolute Neuts (auto) Neutrophils % Lymphocytes % Monocytes % Eosinophils % Basophils % Nucleated RBC % Sodium Potassium Chloride Carbon Dioxide Anion Gap BUN Creatinine Est GFR (CKD-EPI)AfAm Est GFR (CKD-EPI)NonAf POC Glucometer 331 Random Glucose Calcium Phosphorus Magnesium Total Bilirubin AST ALT Alkaline Phosphatase Total Protein Albumin Urine Color Yellow Urine Appearance Clear Urine pH 5.0 D Ur Specific [place] 1.013 Urine Protein 3+ H Urine Glucose (UA) 2+ H Urine Ketones Negative Urine Blood 1+ H Urine Nitrite Negative Urine Bilirubin Negative Urine Urobilinogen 0.2 Ur Leukocyte Esterase 1+ H Urine WBC (Auto) 8 Urine RBC (Auto) 5 Urine Casts (Auto) 9 U Epithel Cells (Auto) 4.4 Urine Bacteria (Auto) 2.9 Ur Random Creatinine 78.0 Ur Random Sodium 37 L 03/29/19 03/30/19 03/30/19 21:53 05:56 07:25 WBC 6.6 RBC 3.51 L Hgb 9.3 L Hct 28.4 L MCV 80.7 MCH 26.6 MCHC 32.9 RDW 14.3 Plt Count 174 MPV 9.3 Absolute Neuts (auto) 4.5 Neutrophils % 69.2 Lymphocytes % 19.7 Monocytes % 5.4 Eosinophils % 4.8 H Basophils % 0.9 Nucleated RBC % 0 Sodium Potassium Chloride Carbon Dioxide Anion Gap BUN Creatinine Est GFR (CKD-EPI)AfAm Est GFR (CKD-EPI)NonAf POC Glucometer 259 144 Random Glucose Calcium Phosphorus Magnesium Total Bilirubin AST ALT Alkaline Phosphatase Total Protein Albumin Urine Color Urine Appearance Urine pH Ur Specific [place] Urine Protein Urine Glucose (UA) Urine Ketones Urine Blood Urine Nitrite Urine Bilirubin Urine Urobilinogen Ur Leukocyte Esterase Urine WBC (Auto) Urine RBC (Auto) Urine Casts (Auto) U Epithel Cells (Auto) Urine Bacteria (Auto) Ur Random Creatinine Ur Random Sodium 03/30/19 03/30/19 07:25 11:14 WBC RBC Hgb Hct MCV MCH MCHC RDW Plt Count MPV Absolute Neuts (auto) Neutrophils % Lymphocytes % Monocytes % Eosinophils % Basophils % Nucleated RBC % Sodium 142 Potassium 3.6 Chloride 111 H Carbon Dioxide 24 Anion Gap 8 BUN 29.8 H Creatinine 3.2 H Est GFR (CKD-EPI)AfAm 17.75 Est GFR (CKD-EPI)NonAf 15.31 POC Glucometer 258 Random Glucose 182 H Calcium 9.0 Phosphorus 2.9 Magnesium 1.9 Total Bilirubin 0.3 AST 12 L ALT 14 Alkaline Phosphatase 80 Total Protein 6.4 Albumin 2.3 L Urine Color Urine Appearance Urine pH Ur Specific [place] Urine Protein Urine Glucose (UA) Urine Ketones Urine Blood Urine Nitrite Urine Bilirubin Urine Urobilinogen Ur Leukocyte Esterase Urine WBC (Auto) Urine RBC (Auto) Urine Casts (Auto) U Epithel Cells (Auto) Urine Bacteria (Auto) Ur Random Creatinine Ur Random Sodium Active Medications Generic Name Dose Route Start Last Admin Trade Name Freq PRN Reason Stop Dose Admin Albuterol Sulfate 1 amp 03/28/19 19:04 Ventolin 0.083% Nebulizer Soln - NEB Q6H PRN SHORT OF BREATH/WHEEZING Amlodipine Besylate 10 mg 03/30/19 10:00 03/30/19 10:12 Norvasc - PO 10 mg DAILY VINCE Administration Atorvastatin Calcium 20 mg 03/30/19 22:00 Lipitor - PO HS VINCE Bacitracin 1 applic 03/29/19 10:00 12/10/19 12:05 Bacitracin - TP 1 applic DAILY VINCE Administration Budesonide/Formoterol Fumarate 1 puff 03/28/19 22:00 03/30/19 10:18 Symbicort 160/4.5mcg - IH 1 puff BID VINCE Administration Carvedilol 25 mg 03/28/19 22:00 03/30/19 10:12 Coreg - PO 25 mg BID VINCE Administration Cholecalciferol 2,000 unit 03/30/19 11:30 03/30/19 12:05 Vitamin D3 - PO 2,000 unit DAILY VINCE Administration Duloxetine HCl 20 mg 03/29/19 10:00 03/30/19 10:12 Cymbalta - PO 20 mg DAILY VINCE Administration Folic Acid 1 mg 03/30/19 10:00 03/30/19 10:13 Folic Acid - PO 1 mg DAILY VINCE Administration Heparin Sodium (Porcine) 5,000 unit 03/28/19 14:00 03/30/19 05:59 Heparin - SQ 5,000 unit TID VINCE Administration Hydroxychloroquine Sulfate 400 mg 03/28/19 22:00 03/30/19 10:13 Plaquenil - PO 400 mg BID VINCE Administration Sodium Chloride 1,000 mls @ 100 mls/hr 03/28/19 07:00 03/30/19 08:21 Normal Saline - IV Not Given ASDIR [facility] Insulin Aspart 1 vial 03/30/19 07:00 03/30/19 12:05 Novolog Vial Sliding Scale - SQ 10 units ACHS VINCE Administration Protocol Insulin Detemir 18 units 03/29/19 22:00 03/29/19 21:47 Levemir Vial SQ 18 units HS [facility] Administration Montelukast Sodium 10 mg 03/28/19 22:00 03/29/19 21:51 Singulair - PO 10 mg HS VINCE Administration Non-Formulary Medication 1,000 mg 03/28/19 14:00 Mesalamine [Pentasa] PO QID VINCE Oxycodone HCl 2.5 mg 03/30/19 11:31 Roxicodone - PO Q6H PRN PAIN LEVEL 7 - 10 Pantoprazole Sodium 40 mg 03/29/19 10:00 03/30/19 10:12 Protonix - PO 40 mg DAILY VINCE Administration Polyethylene Glycol 17 gm 03/30/19 10:00 03/30/19 10:13 Miralax (For Daily Use) - PO 17 gm DAILY VINCE Administration Pregabalin 25 mg 03/30/19 11:31 Lyrica - PO TID VINCE ASSESSMENT/PLAN: Ms. Castanon is a 58y/o female with IDDM2, HTN, CKD, asthma, RA, breast cancer s/p radiation, fibromyalgia, and recent incarcerated hernia s/p repair who presents following a mechanical fall. #hyperglycemia 2/2 uncontrolled IDDM2 -BGM 706 at admission -SSI -Levemir 18U -BGMs -NS 100mL/hr -endocrine following #[place] on CKD, improving -NS 100mL/hr #right 1st toe ulcer -MRI -podiatry following -vascular following #tremor -neuro following #HTN -amlodipine 10mg daily -carvedilol 25mg BID #asthma -albuterol -Symbicort -singulair #fibromyalgia -duloxetine 20mg daily -pregabalin 25mg TID -oxycodone 2.5mg Q6H PRN #RA -Plaquenil 400mg BID -mesalamine- not in formulary #HLD -atorvastatin 20mg daily DVT Ppx heparin FEN NS 100mL/hr monitor K, Cr diabetic diet Visit type - Emergency Visit Emergency Visit: Yes ED Registration Date: 03/28/19 Care time: The patient presented to the Emergency Department on the above date and was hospitalized for further evaluation of their emergent condition. - New Patient This patient is new to me today: No - Critical Care Critical Care patient: No - Discharge Referral Referred to [facility] No ATTENDING PHYSICIAN STATEMENT I saw and evaluated the patient. I reviewed the resident's note and discussed the case with the resident. I agree with the resident's findings and plan as documented. SUBJECTIVE: OBJECTIVE: ASSESSMENT AND PLAN:
--- NOTE | 2019-03-30 14:43 | PN ---
Teaching Attending Note Name of Resident: Diana Jackson ATTENDING PHYSICIAN STATEMENT I saw and evaluated the patient. I reviewed the resident's note and discussed the case with the resident. I agree with the resident's findings and plan as documented. SUBJECTIVE: Patient is feeling weak, with generalized pain.no fever or chills. Vital Signs Temperature 98.3 F 03/30/19 13:52 Pulse Rate 66 03/30/19 13:52 Respiratory Rate 20 03/30/19 13:52 Blood Pressure 136/52 L 03/30/19 13:52 O2 Sat by Pulse Oximetry (%) 98 03/29/19 21:00 Intake & Output 03/27/19 03/28/19 03/29/19 03/30/19 23:59 23:59 23:59 23:59 Intake Total 1180 2170 1250 Balance 1180 2170 1250 Weight 106.73 kg GENERAL: The patient is awake, alert, and fully oriented, in no acute distress. HEAD: Normal with no signs of trauma. EYES: PERRL, extraocular movements intact, conjunctiva clear. ENT: Ears normal, moist mucous membranes. NECK: Trachea midline, full range of motion LUNGS: Clear to auscultation bilaterally, no wheezes HEART: Regular rate and rhythm, no murmur ABDOMEN: Soft, obese, nontender, nondistended, normoactive bowel sounds EXTREMITIES: Warm, well-perfused, no edema. Right 1st toe dried ulcer on medial surface. NEUROLOGICAL: Cranial nerves II through XII grossly intact. Normal speech. PSYCH: Normal mood, normal affect. SKIN: Warm, dry, normal turgor CBCD WBC 6.6 K/mm3 (4.0-10.0) 03/30/19 07:25 RBC 3.51 M/mm3 (3.60-5.2) L 03/30/19 07:25 Hgb 9.3 GM/dL (10.7-15.3) L 03/30/19 07:25 Hct 28.4 % (32.4-45.2) L 03/30/19 07:25 MCV 80.7 fl (80-96) 03/30/19 07:25 MCHC 32.9 g/dl (32.0-36.0) 03/30/19 07:25 RDW 14.3 % (11.6-15.6) 03/30/19 07:25 Plt Count 174 K/MM3 (134-434) 03/30/19 07:25 MPV 9.3 fl (7.5-11.1) 03/30/19 07:25 CMP Sodium 142 mmol/L (136-145) 03/30/19 07:25 Potassium 3.6 mmol/L (3.5-5.1) 03/30/19 07:25 Chloride 111 mmol/L (98-107) H 03/30/19 07:25 Carbon Dioxide 24 mmol/L (21-32) 03/30/19 07:25 Anion Gap 8 MMOL/L (8-16) 03/30/19 07:25 BUN 29.8 mg/dL (7-18) H 03/30/19 07:25 Creatinine 3.2 mg/dL (0.55-1.3) H 03/30/19 07:25 Random Glucose 182 mg/dL (74-106) H 03/30/19 07:25 Calcium 9.0 mg/dL (8.5-10.1) 03/30/19 07:25 Total Bilirubin 0.3 mg/dL (0.2-1) 03/30/19 07:25 AST 12 U/L (15-37) L 03/30/19 07:25 ALT 14 U/L (13-61) 03/30/19 07:25 Alkaline Phosphatase 80 U/L (45-117) 03/30/19 07:25 Total Protein 6.4 g/dl (6.4-8.2) 03/30/19 07:25 Albumin 2.3 g/dl (3.4-5.0) L 03/30/19 07:25 CARDIAC ENZYMES Creatine Kinase 89 U/L (26-192) 03/28/19 01:22 Troponin I < 0.02 ng/ml (0.00-0.05) 03/28/19 01:22 Current Medications Generic Name Dose Route Start Last Admin Trade Name Freq PRN Reason Stop Dose Admin Albuterol Sulfate 1 amp 03/28/19 19:04 Ventolin 0.083% Nebulizer Soln - NEB Q6H PRN SHORT OF BREATH/WHEEZING Amlodipine Besylate 10 mg 03/30/19 10:00 03/30/19 10:12 Norvasc - PO 10 mg DAILY VINCE Administration Atorvastatin Calcium 20 mg 03/30/19 22:00 Lipitor - PO HS VINCE Bacitracin 1 applic 03/29/19 10:00 03/30/19 12:05 Bacitracin - TP 1 applic DAILY VINCE Administration Budesonide/Formoterol Fumarate 1 puff 03/28/19 22:00 03/30/19 10:18 Symbicort 160/4.5mcg - IH 1 puff BID VINCE Administration Carvedilol 25 mg 03/28/19 22:00 03/30/19 10:12 Coreg - PO 25 mg BID VINCE Administration Cholecalciferol 2,000 unit 03/30/19 11:30 03/30/19 12:05 Vitamin D3 - PO 2,000 unit DAILY VINCE Administration Duloxetine HCl 20 mg 03/29/19 10:00 03/30/19 10:12 Cymbalta - PO 20 mg DAILY VINCE Administration Folic Acid 1 mg 03/30/19 10:00 03/30/19 10:13 Folic Acid - PO 1 mg DAILY VINCE Administration Heparin Sodium (Porcine) 5,000 unit 03/28/19 14:00 03/30/19 14:21 Heparin - SQ 5,000 unit TID [facility] Administration Hydroxychloroquine Sulfate 400 mg 03/28/19 22:00 03/30/19 10:13 Plaquenil - PO 400 mg BID VINCE Administration Sodium Chloride 1,000 mls @ 100 mls/hr 03/28/19 07:00 03/30/19 08:21 Normal Saline - IV Not Given ASDIR [facility] Insulin Aspart 1 vial 03/30/19 07:00 03/30/19 12:05 Novolog Vial Sliding Scale - SQ 10 units ACHS [facility] Administration Protocol Insulin Detemir 18 units 03/29/19 22:00 03/29/19 21:47 Levemir Vial SQ 18 units HS [facility] Administration Montelukast Sodium 10 mg 03/28/19 22:00 03/29/19 21:51 Singulair - PO 10 mg HS VINCE Administration Non-Formulary Medication 1,000 mg 03/28/19 14:00 Mesalamine [Pentasa] PO QID [facility] Oxycodone HCl 2.5 mg 03/30/19 11:31 Roxicodone - PO Q6H PRN PAIN LEVEL 7 - 10 Pantoprazole Sodium 40 mg 03/29/19 10:00 03/30/19 10:12 Protonix - PO 40 mg DAILY VINCE Administration Polyethylene Glycol 17 gm 03/30/19 10:00 03/30/19 10:13 Miralax (For Daily Use) - PO 17 gm DAILY VINCE Administration Pregabalin 25 mg 03/30/19 11:31 03/30/19 14:21 Lyrica - PO 25 mg TID VINCE Administration Home Medications Medication Instructions Recorded Carvedilol 25 mg PO BID 10/22/14 Montelukast Na [Singulair -] 10 mg PO HS 10/22/14 Pregabalin [Lyrica -] 75 mg PO TID 10/22/14 Cholecalciferol (Vitamin D3) 50,000 unit PO WEEKLY 01/26/16 [Vitamin D3] Tamoxifen Citrate 20 mg PO DAILY 05/24/16 Albuterol 0.083% Nebulizer Page 1 amp NEB DAILY 09/18/17 [Ventolin 0.083% Nebulizer Soln -] Budesonide/Formeterol Fumarate 2 inh PO BID 09/18/17 [SYMBICORT 160/4.5mcg -] Hydroxychloroquine Sulfate 400 mg PO BID 09/18/17 [Plaquenil] Mesalamine [Pentasa] 1,000 mg PO QID 09/18/17 Pantoprazole Sodium [Protonix] 40 mg PO DAILY 09/18/17 Folic Acid - 1 mg PO DAILY #30 tablet 09/26/17 Insulin Glargine,Hum.rec.anlog 25 unit SQ BID 11/26/18 [Lantus] Atorvastatin Ca [Lipitor] 20 mg PO HS 03/01/19 Duloxetine HCl 20 mg PO DAILY 03/01/19 Acetaminophen [Tylenol .Regular 650 mg PO Q6H PRN #15 tablet 03/05/19 Strength -] Amlodipine Besylate [Norvasc -] 5 mg PO DAILY #30 tablet 03/05/19 Bacitracin - [Bacitracin Topical 1 applic TP DAILY #30 applic 03/05/19 Ointment -] Insulin Lispro [Humalog] 25 unit SQ BID #15 ml 03/06/19 Oxycodone HCl [Roxicodone] 5 mg PO Q8H PRN #9 tablet MDD 3 tab 03/06/19 Amlodipine Besylate [Norvasc -] 10 mg PO DAILY 03/29/19 Ergocalciferol (Vitamin D2) 50,000 unit PO WEEKLY 03/29/19 [Vitamin D2] Insulin Glargine,Hum.rec.anlog 28 units SQ BID 03/29/19 [Maribelaglmassimo Barrett U-100] Laboratory Tests 03/28/19 03/28/19 03/28/19 01:22 01:22 09:50 WBC 11.7 H 11.7 H ESR 89 H Sodium 130 L Potassium BUN Creatinine Random Glucose 706 H* Hemoglobin A1c % Triglycerides Cholesterol Total LDL Cholesterol HDL Cholesterol Beta-Hydroxybutyrate 5.6 H 03/28/19 03/28/19 03/28/19 09:50 09:50 09:50 WBC ESR Sodium Potassium 3.3 L BUN Creatinine Random Glucose Hemoglobin A1c % 12.2 H Triglycerides 235 H Cholesterol 114 Total LDL Cholesterol 57 HDL Cholesterol 37 L Beta-Hydroxybutyrate 03/29/19 03/29/19 07:07 07:07 WBC 7.6 ESR Sodium Potassium BUN 34.3 H Creatinine 3.7 H Random Glucose Hemoglobin A1c % Triglycerides Cholesterol Total LDL Cholesterol HDL Cholesterol Beta-Hydroxybutyrate Assessment and plan: Patient is a 58y/of with PMhx of IDDM2, HTN, CKD, asthma, RA, breast cancer s/ p radiation, fibromyalgia, and recent incarcerated hernia s/p repair who presents following a mechanical fall and was found to have sugar of 700's. #S/P Fall : reviewed the xrays , no fx is noted. #hyperglycemia: Uncontrolled BS with hA1c of 12, endocrine consult appreciated. #[place] on CKD, improving, nephro consult appreciated , on IVF NS #right 1st toe ulcer, chronic , on the case, asking for MRI. #HTN continue amlodipine, carvedilol #Hx of asthma, continue albuterol/symbicort/singuilar #fibromyalgia continue home meds duloxetine/pregabalin/oxycodone #RA continue Plaquenil/mesalamine #HLD: atorvastatin #Hx of Breast Cancer on tamoxifen continue DVT Ppx: heparin
--- NOTE | 2019-03-30 16:13 | PN ---
Progress Note (short form) - Note Progress Note: Renal follow up for [place] on CKD Seen and examined at the bedside awake and alert complains of back pain continue to have tremor making urine no sob, cp, fever or chills Vital Signs Temperature 98.3 F 03/30/19 13:52 Pulse Rate 66 03/30/19 13:52 Respiratory Rate 20 03/30/19 13:52 Blood Pressure 136/52 L 03/30/19 13:52 O2 Sat by Pulse Oximetry (%) 98 03/29/19 21:00 Intake & Output 03/27/19 03/28/19 03/29/19 03/30/19 23:59 23:59 23:59 23:59 Intake Total 1180 2170 1250 Balance 1180 2170 1250 Weight 106.73 kg NAD awake and alert neck supple, no JVD RRR CTA soft NT/ND no Le edema, clubbing or cyanosis no flank pain CBC, BMP 03/29/19 07:07 03/29/19 07:07 Current Medications Albuterol Sulfate (Ventolin 0.083% Nebulizer Soln -) 1 amp NEB Q6H PRN PRN Reason: SHORT OF BREATH/WHEEZING Amlodipine Besylate (Norvasc -) 5 mg PO DAILY [facility] Last Admin: 03/29/19 09:51 Dose: 5 mg Bacitracin (Bacitracin -) 1 applic TP DAILY [facility] Last Admin: 03/29/19 09:52 Dose: 1 applic Budesonide/Formoterol Fumarate (Symbicort 160/4.5mcg -) 1 puff IH BID [facility] Last Admin: 03/29/19 10:05 Dose: 1 puff Carvedilol (Coreg -) 25 mg PO BID [facility] Last Admin: 03/29/19 09:51 Dose: 25 mg Duloxetine HCl (Cymbalta -) 20 mg PO DAILY [facility] Last Admin: 03/29/19 09:52 Dose: 20 mg Heparin Sodium (Porcine) (Heparin -) 5,000 unit SQ TID [facility] Last Admin: 03/29/19 06:34 Dose: 5,000 unit Hydroxychloroquine Sulfate (Plaquenil -) 400 mg PO BID [facility] Last Admin: 03/29/19 09:52 Dose: 400 mg Sodium Chloride (Normal Saline -) 1,000 mls @ 100 mls/hr IV ASDIR [facility] Last Admin: 03/29/19 10:05 Dose: 100 mls/hr Insulin Aspart (Novolog Vial Sliding Scale -) 1 vial SQ ACHS [facility]; Protocol Last Admin: 03/29/19 11:23 Dose: 6 units Insulin Detemir (Levemir Vial) 10 units SQ [facility] Last Admin: 03/28/19 21:23 Dose: 10 units Montelukast Sodium (Singulair -) 10 mg PO HS [facility] Last Admin: 03/28/19 21:25 Dose: 10 mg Non-Formulary Medication (Mesalamine [Pentasa]) 1,000 mg PO QID [facility] Oxycodone HCl (Roxicodone -) 5 mg PO Q8H PRN PRN Reason: PAIN LEVEL 7 - 10 Last Admin: 03/28/19 21:25 Dose: 5 mg Pantoprazole Sodium (Protonix -) 40 mg PO DAILY [facility] Last Admin: 03/29/19 09:52 Dose: 40 mg Pregabalin (Lyrica -) 75 mg PO TID [facility] Last Admin: 03/29/19 06:34 Dose: 75 mg Tamoxifen Citrate (Tamoxifen Citrate) 20 mg PO DAILY [facility] Last Admin: 03/29/19 09:52 Dose: 20 mg 58 year old woman with with history of CKD stage 4, DM on insulin, hypertension , Asthma, Ra, breast cancer s/p radiation therapy who presented with fall at home and tremors and noted to have Cr of 4. Pt denies any changes in urine output, N/V/D, NSAID use, flank pain, dysuria, frequency, skin rash or change in appetite. 1. CKD stage 4 with elevated Cr compared to baseline 2. Mechanical falls 3. Tremors 4. Acute on chronic anemia 5. Hypertension 6. DM Renal function improved, maintain on isotonis saline no acute need for [employer] at this time Continue work up for falls and tremors as per primary team BP goal < 140/90, continue coreg and amlodipine and titrate as needed ' consider neurology eval for tremors pain control w/o NSAIDs Riley Rashid DO
[2019-03-30] MEDS: MONTELUKAST NA 10 MG TABLET PO SCH (21:50)
[2019-03-30] MEDS: ATORVASTATIN CA 20 MG TABLET (FP) PO SCH (21:50)
[2019-03-30] MEDS: INSULIN (LEVEMIR) 100 UNITS/ML UNITS SQ SCH (21:52)
[2019-03-31] MEDS: SODIUM CHLORIDE 1,000 ML IV SCH ×2 (01:17→11:16)
[2019-03-31] MEDS: HEPARIN NA (PORCINE) 5,000 UNITS/ML 1ML VIAL SQ SCH ×3 (05:56→21:47)
[2019-03-31] MEDS: PREGABALIN 25 MG CAPSULE PO SCH ×3 (05:57→21:47)
[2019-03-31] MEDS: INSULIN SLIDING SCALE (NOVOLOG) 1 VIAL SQ SCH ×3 (06:06→16:56)
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
[2019-03-31 09:30] LABS: BASO % 0.9 % (0-2.0); EOS % 3.9 % (0-4.5); HEMATOCRIT 28.9 % (32.4-45.2); HEMOGLOBIN 9.6 GM/dL (10.7-15.3); LYMPH % 17.3 % (8-40); MCH 27.1 pg (25.7-33.7); MCHC 33.3 g/dl (32.0-36.0); MEAN CELL VOLUME 81.4 fl (80-96); MEAN PLT VOLUME 9.3 fl (7.5-11.1); MONO % 6.2 % (3.8-10.2); NEUT % 71.7 % (42.8-82.8); PLATELET COUNT 192 K/MM3 (134-434); RBC 3.55 M/mm3 (3.60-5.2); RDW 14.2 % (11.6-15.6); WHITE BLOOD COUNT 7.3 K/mm3 (4.0-10.0)
[2019-03-31] MEDS ORDERED: PT OWN MED DRAWER 7, Y5N ONE (09:36)
[2019-03-31] MEDS: HYDROXYCHLOROQUINE SO4 200 MG TABLET (FP) PO SCH ×2 (09:38→21:46)
[2019-03-31] MEDS: PANTOPRAZOLE 40 MG TABLET (FP) PO SCH (09:38)
[2019-03-31] MEDS: amLODIPine BESYLATE 10 MG TABLET (FP) PO SCH (09:38)
[2019-03-31] MEDS: CHOLECALCIFEROL (VIT D3) 1,000 UNIT (25 MCG) TABLET PO SCH (09:38)
[2019-03-31] MEDS: DULoxetine HCL 20 MG CAPSULE.DR PO SCH (09:39)
[2019-03-31] MEDS: CARVEDILOL 12.5 MG TABLET (FP) PO SCH ×2 (09:39→21:47)
[2019-03-31] MEDS: FOLIC ACID 1 MG TABLET (FP) PO SCH (09:39)
[2019-03-31] MEDS: BUDESONIDE/FORMETEROL FUMARATE 160/4.5 mcg INHALER IH SCH ×2 (09:42→21:47)
[2019-03-31] MEDS: POLYETHYLENE GLYCOL 3350 119 GM BTL PO SCH (09:42)
[2019-03-31] MEDS: BACITRACIN 15 GM TUBE TOPICAL OINTMENT TP SCH (09:43)
[2019-03-31 10:10] LABS: BLOOD UREA NITROGEN 28.9 mg/dL (7-18); CREATININE 3.1 mg/dL (0.55-1.3); MAGNESIUM 1.7 mg/dL (1.8-2.4); PHOSPHOROUS 2.7 mg/dL (2.5-4.9); POTASSIUM 3.8 mmol/L (3.5-5.1)
--- NOTE | 2019-03-31 10:36 | PN ---
Progress Note (short form) - Note Progress Note: Feels better Still feels weak Vital Signs Period Temp Pulse Resp BP Sys/Ronquillo Pulse Ox Last 24 Hr 97.7 F-98.3 F 64-68 20-20 123-156/52-72 95 PE: AOx3 Neck: Supple, No JVDHEH HEENT: EOMI Lungs: CTA CVS: S1S2 Abd: Benign Ext: No edema, + Tremors Neuro: No focal deficit CMP Sodium 143 mmol/L (136-145) 03/31/19 08:20 Potassium 3.8 mmol/L (3.5-5.1) 03/31/19 08:20 Chloride 111 mmol/L (98-107) H 03/31/19 08:20 Carbon Dioxide 24 mmol/L (21-32) 03/31/19 08:20 Anion Gap 8 MMOL/L (8-16) 03/31/19 08:20 BUN 28.9 mg/dL (7-18) H 03/31/19 08:20 Creatinine 3.1 mg/dL (0.55-1.3) H 03/31/19 08:20 Est GFR (CKD-EPI)AfAm 18.44 03/31/19 08:20 Est GFR (CKD-EPI)NonAf 15.91 03/31/19 08:20 POC Glucometer 151 UNITS (80-120) 03/31/19 06:05 Random Glucose 115 mg/dL (74-106) H 03/31/19 08:20 Hemoglobin A1c % 12.2 % (4.2-6.3) H 03/28/19 09:50 Calcium 9.0 mg/dL (8.5-10.1) 03/31/19 08:20 Phosphorus 2.7 mg/dL (2.5-4.9) 03/31/19 08:20 Magnesium 1.7 mg/dL (1.8-2.4) L 03/31/19 08:20 Total Bilirubin 0.3 mg/dL (0.2-1) 03/30/19 07:25 AST 12 U/L (15-37) L 03/30/19 07:25 ALT 14 U/L (13-61) 03/30/19 07:25 Alkaline Phosphatase 80 U/L (45-117) 03/30/19 07:25 Creatine Kinase 89 U/L (26-192) 03/28/19 01:22 Troponin I < 0.02 ng/ml (0.00-0.05) 03/28/19 01:22 C-Reactive Protein < 0.3 MG/DL (0.00-0.3) 03/28/19 09:50 Total Protein 6.4 g/dl (6.4-8.2) 03/30/19 07:25 Albumin 2.3 g/dl (3.4-5.0) L 03/30/19 07:25 Triglycerides 235 mg/dL (0-150) H 03/28/19 09:50 Cholesterol 114 mg/dL (50-200) 03/28/19 09:50 Total LDL Cholesterol 57 mg/dL (5-100) 03/28/19 09:50 HDL Cholesterol 37 mg/dL (40-60) L 03/28/19 09:50 Beta-Hydroxybutyrate 5.6 mg/dL (0.2-2.8) H 03/28/19 01:22 Current Medications Generic Name Dose Route Start Last Admin Trade Name Freq PRN Reason Stop Dose Admin Albuterol Sulfate 1 amp 03/28/19 19:04 Ventolin 0.083% Nebulizer Soln - NEB Q6H PRN SHORT OF BREATH/WHEEZING Amlodipine Besylate 10 mg 03/30/19 10:00 03/31/19 09:38 Norvasc - PO 10 mg DAILY VINCE Administration Atorvastatin Calcium 20 mg 03/30/19 22:00 03/30/19 21:50 Lipitor - PO 20 mg HS VINCE Administration Bacitracin 1 applic 03/29/19 10:00 03/31/19 09:43 Bacitracin - TP 1 applic DAILY VINCE Administration Budesonide/Formoterol Fumarate 1 puff 03/28/19 22:00 03/31/19 09:42 Symbicort 160/4.5mcg - IH 1 puff BID VINCE Administration Carvedilol 25 mg 03/28/19 22:00 03/31/19 09:39 Coreg - PO 25 mg BID VINCE Administration Cholecalciferol 2,000 unit 03/30/19 11:30 03/31/19 09:38 Vitamin D3 - PO 2,000 unit DAILY VINCE Administration Duloxetine HCl 20 mg 03/29/19 10:00 03/31/19 09:39 Cymbalta - PO 20 mg DAILY VINCE Administration Folic Acid 1 mg 03/30/19 10:00 03/31/19 09:39 Folic Acid - PO 1 mg DAILY VINCE Administration Heparin Sodium (Porcine) 5,000 unit 03/28/19 14:00 03/31/19 05:56 Heparin - SQ 5,000 unit TID VINCE Administration Hydroxychloroquine Sulfate 400 mg 03/28/19 22:00 03/31/19 09:38 Plaquenil - PO 400 mg BID VINCE Administration Sodium Chloride 1,000 mls @ 100 mls/hr 03/28/19 07:00 03/31/19 01:17 Normal Saline - IV 100 mls/hr ASDIR VINCE Administration Insulin Aspart 1 vial 03/30/19 07:00 03/31/19 06:06 Novolog Vial Sliding Scale - SQ 6 units ACHS VINCE Administration Protocol Insulin Detemir 18 units 03/29/19 22:00 03/30/19 21:52 Levemir Vial SQ 18 units HS VINCE Administration Montelukast Sodium 10 mg 03/28/19 22:00 03/30/19 21:50 Singulair - PO 10 mg HS VINCE Administration Non-Formulary Medication 1,000 mg 03/28/19 14:00 Mesalamine [Pentasa] PO QID [facility]IN[facility] Oxycodone HCl 2.5 mg 03/30/19 11:31 Roxicodone - PO Q6H PRN PAIN LEVEL 7 - 10 Pantoprazole Sodium 40 mg 03/29/19 10:00 03/31/19 09:38 Protonix - PO 40 mg DAILY VINCE Administration Polyethylene Glycol 17 gm 03/30/19 10:00 03/31/19 09:42 Miralax (For Daily Use) - PO Not Given DAILY [facility] Pregabalin 25 mg 03/30/19 11:31 03/31/19 05:57 Lyrica - PO 25 mg TID VINCE Administration AP: Uncontrolled T2DM BGM 706 on admission Levemir 18 units daily at HS Novolog coverage Nutrition cosult Diet exercise discussed [place] on CKD Right Toe Ulcer Local wound care Abx as necessary HTN
--- NOTE | 2019-03-31 12:28 | PN ---
Progress Note, Physician History of Present Illness: stable no new issues - Current Medication List Current Medications: Active Medications Albuterol Sulfate (Ventolin 0.083% Nebulizer Soln -) 1 amp NEB Q6H PRN PRN Reason: SHORT OF BREATH/WHEEZING Amlodipine Besylate (Norvasc -) 10 mg PO DAILY [facility] Last Admin: 03/31/19 09:38 Dose: 10 mg Atorvastatin Calcium (Lipitor -) 20 mg PO HS [facility] Last Admin: 03/30/19 21:50 Dose: 20 mg Bacitracin (Bacitracin -) 1 applic TP DAILY [facility] Last Admin: 03/31/19 09:43 Dose: 1 applic Budesonide/Formoterol Fumarate (Symbicort 160/4.5mcg -) 1 puff IH BID [facility] Last Admin: 03/31/19 09:42 Dose: 1 puff Carvedilol (Coreg -) 25 mg PO BID [facility] Last Admin: 03/31/19 09:39 Dose: 25 mg Cholecalciferol (Vitamin D3 -) 2,000 unit PO DAILY [facility] Last Admin: 03/31/19 09:38 Dose: 2,000 unit Duloxetine HCl (Cymbalta -) 20 mg PO DAILY [facility] Last Admin: 03/31/19 09:39 Dose: 20 mg Folic Acid (Folic Acid -) 1 mg PO DAILY [facility] Last Admin: 03/31/19 09:39 Dose: 1 mg Heparin Sodium (Porcine) (Heparin -) 5,000 unit SQ TID [facility] Last Admin: 03/31/19 05:56 Dose: 5,000 unit Hydroxychloroquine Sulfate (Plaquenil -) 400 mg PO BID [facility] Last Admin: 03/31/19 09:38 Dose: 400 mg Sodium Chloride (Normal Saline -) 1,000 mls @ 100 mls/hr IV ASDIR [facility] Last Admin: 03/31/19 11:16 Dose: 100 mls/hr Insulin Aspart (Novolog Vial Sliding Scale -) 1 vial SQ ACHS [facility]; Protocol Last Admin: 03/31/19 11:41 Dose: 8 units Insulin Detemir (Levemir Vial) 18 units SQ HS [facility] Last Admin: 03/30/19 21:52 Dose: 18 units Montelukast Sodium (Singulair -) 10 mg PO HS [facility] Last Admin: 03/30/19 21:50 Dose: 10 mg Non-Formulary Medication (Mesalamine [Pentasa]) 1,000 mg PO QID [facility] Oxycodone HCl (Roxicodone -) 2.5 mg PO Q6H PRN PRN Reason: PAIN LEVEL 7 - 10 Pantoprazole Sodium (Protonix -) 40 mg PO DAILY [facility] Last Admin: 03/31/19 09:38 Dose: 40 mg Polyethylene Glycol (Miralax (For Daily Use) -) 17 gm PO DAILY [facility] Last Admin: 03/31/19 09:42 Dose: Not Given Pregabalin (Lyrica -) 25 mg PO TID [facility] Last Admin: 03/31/19 05:57 Dose: 25 mg - Objective Vital Signs: Vital Signs Temperature 97.7 F 03/31/19 10:00 Pulse Rate 68 03/31/19 10:00 Respiratory Rate 20 03/31/19 10:00 Blood Pressure 156/72 03/31/19 10:00 O2 Sat by Pulse Oximetry (%) 95 03/30/19 21:00 Constitutional: Yes: No Distress, Calm Cardiovascular: Yes: S1, S2 Respiratory: Yes: Regular, CTA Bilaterally Gastrointestinal: Yes: Normal Bowel Sounds, Soft Musculoskeletal: Yes: WNL Extremities: Yes: Other Neurological: Yes: Alert, Oriented Psychiatric: Yes: Alert, Oriented Labs: CBC, BMP 03/31/19 08:20 03/31/19 08:20 INR, PTT INR 0.98 (0.83-1.09) 03/28/19 09:50 Assessment/Plan Problem List - Problems (1) Hyperglycemia Code(s): R73.9 - HYPERGLYCEMIA, UNSPECIFIED (2) Diabetes Code(s): E11.9 - TYPE 2 DIABETES MELLITUS WITHOUT COMPLICATIONS Qualifiers: (3) [place] (acute kidney injury) Code(s): N17.9 - ACUTE KIDNEY FAILURE, UNSPECIFIED Assessment/Plan 58 y.o. female with PMH of IDDM, HTN, CKD, RA, fibromyalgia, chronic LBP, Breast CA s/p RT, strangulated hernia s/p repair during last hospital admission (03/01/19 - 03/06/19) and a Rt 1st toe wound presented to the ER s/p fall in the bathroom at home with c/o b/l hip pain s/p Fall Hip Pain Rt toe ulcer Uncontrolled DM Hyperglycemia [place] on CKD Hx of Breast CA s/p RT Hx of strangulated hernia s/p repair - site healed RA Fibromyalgia HTN Chronic LBP plan continue current mgmt wound care rest as per the team await for imaging report
[2019-03-31] MEDS ORDERED: MAGNESIUM SULF 50% (8.12 MEQ/2 ML-1 GM VIAL) IVPB ONE (14:40)
--- NOTE | 2019-03-31 15:35 | PN ---
Progress Note (short form) - Note Progress Note: Renal follow up for [place] on CKD Seen and examined at the bedside awake and alert feels better today, no acute complaints Vital Signs Temperature 98.5 F 03/31/19 15:28 Pulse Rate 78 03/31/19 15:28 Respiratory Rate 22 H 03/31/19 15:28 Blood Pressure 136/74 03/31/19 15:28 O2 Sat by Pulse Oximetry (%) 95 03/30/19 21:00 Intake & Output 03/28/19 03/29/19 03/30/19 03/31/19 23:59 23:59 23:59 23:59 Intake Total 1180 2170 3450 1300 Balance 1180 2170 3450 1300 Weight 106.73 kg NAD awake and alert neck supple, no JVD RRR CTA soft NT/ND no Le edema, clubbing or cyanosis no flank pain CBC, BMP 03/31/19 08:20 03/31/19 08:20 Current Medications Albuterol Sulfate (Ventolin 0.083% Nebulizer Soln -) 1 amp NEB Q6H PRN PRN Reason: SHORT OF BREATH/WHEEZING Amlodipine Besylate (Norvasc -) 10 mg PO DAILY [facility] Last Admin: 03/31/19 09:38 Dose: 10 mg Atorvastatin Calcium (Lipitor -) 20 mg PO HS [facility] Last Admin: 03/30/19 21:50 Dose: 20 mg Bacitracin (Bacitracin -) 1 applic TP DAILY [facility] Last Admin: 03/31/19 09:43 Dose: 1 applic Budesonide/Formoterol Fumarate (Symbicort 160/4.5mcg -) 1 puff IH BID [facility] Last Admin: 03/31/19 09:42 Dose: 1 puff Carvedilol (Coreg -) 25 mg PO BID [facility] Last Admin: 03/31/19 09:39 Dose: 25 mg Cholecalciferol (Vitamin D3 -) 2,000 unit PO DAILY [facility] Last Admin: 03/31/19 09:38 Dose: 2,000 unit Duloxetine HCl (Cymbalta -) 20 mg PO DAILY [facility] Last Admin: 03/31/19 09:39 Dose: 20 mg Folic Acid (Folic Acid -) 1 mg PO DAILY [facility] Last Admin: 03/31/19 09:39 Dose: 1 mg Heparin Sodium (Porcine) (Heparin -) 5,000 unit SQ TID [facility] Last Admin: 03/31/19 13:28 Dose: 5,000 unit Hydroxychloroquine Sulfate (Plaquenil -) 400 mg PO BID [facility] Last Admin: 03/31/19 09:38 Dose: 400 mg Sodium Chloride (Normal Saline -) 1,000 mls @ 100 mls/hr IV ASDIR [facility] Last Admin: 03/31/19 11:16 Dose: 100 mls/hr Insulin Aspart (Novolog Vial Sliding Scale -) 1 vial SQ ACHS [facility]; Protocol Last Admin: 03/31/19 11:41 Dose: 8 units Insulin Detemir (Levemir Vial) 18 units SQ HS [facility] Last Admin: 03/30/19 21:52 Dose: 18 units Montelukast Sodium (Singulair -) 10 mg PO HS [facility] Last Admin: 03/30/19 21:50 Dose: 10 mg Non-Formulary Medication (Mesalamine [Pentasa]) 1,000 mg PO QID [facility] Oxycodone HCl (Roxicodone -) 2.5 mg PO Q6H PRN PRN Reason: PAIN LEVEL 7 - 10 Pantoprazole Sodium (Protonix -) 40 mg PO DAILY [facility] Last Admin: 03/31/19 09:38 Dose: 40 mg Polyethylene Glycol (Miralax (For Daily Use) -) 17 gm PO DAILY [facility] Last Admin: 03/31/19 09:42 Dose: Not Given Pregabalin (Lyrica -) 25 mg PO TID [facility] Last Admin: 03/31/19 13:28 Dose: 25 mg 58 year old woman with with history of CKD stage 4, DM on insulin, hypertension , Asthma, Ra, breast cancer s/p radiation therapy who presented with fall at home and tremors and noted to have Cr of 4. Pt denies any changes in urine output, N/V/D, NSAID use, flank pain, dysuria, frequency, skin rash or change in appetite. 1. CKD stage 4 with elevated Cr compared to baseline 2. Mechanical falls 3. Tremors 4. Acute on chronic anemia 5. Hypertension 6. DM Renal function improved to near baseline can discontinue fluids no acute need for [employer] at this time Neurology consult noted BP goal < 140/90, continue coreg and amlodipine and titrate as needed ' pain control w/o NSAIDs Riley Rashid DO
--- NOTE | 2019-03-31 17:09 | PN ---
Physical Exam: SUBJECTIVE: Patient seen and examined. She tremors are improved. She denies chest pain, shortness of breath, abdominal pain, nausea, or vomiting. This evening, she reports one episode of diarrhea in the early afternoon and now feels weak. OBJECTIVE: Vital Signs Period Temp Pulse Resp BP Sys/Ronquillo Pulse Ox Last 24 Hr 97.7 F-98.5 F 64-78 20-22 123-156/61-74 95 GENERAL: The patient is awake, alert, and fully oriented, in no acute distress. HEAD: Normal with no signs of trauma. EYES: PERRL, extraocular movements intact, conjunctiva clear. ENT: Ears normal, nares patent, moist mucous membranes. NECK: Trachea midline, full range of motion LUNGS: Clear to auscultation bilaterally, no wheezes HEART: Regular rate and rhythm, no murmur ABDOMEN: Soft, obese, nontender, nondistended, normoactive bowel sounds BACK: ecchymosis left scapula EXTREMITIES: Warm, well-perfused, no edema. Right 1st toe dried ulcer on medial surface. NEUROLOGICAL: Cranial nerves II through XII grossly intact. Normal speech. No tremors noted. PSYCH: Normal mood, normal affect. SKIN: Warm, dry, normal turgor Laboratory Results - last 24 hr 03/30/19 03/31/19 03/31/19 21:57 06:05 08:20 WBC RBC Hgb Hct MCV MCH MCHC RDW Plt Count MPV Absolute Neuts (auto) Neutrophils % Lymphocytes % Monocytes % Eosinophils % Basophils % Nucleated RBC % Sodium 143 Potassium 3.8 Chloride 111 H Carbon Dioxide 24 Anion Gap 8 BUN 28.9 H Creatinine 3.1 H Est GFR (CKD-EPI)AfAm 18.44 Est GFR (CKD-EPI)NonAf 15.91 POC Glucometer 222 151 Random Glucose 115 H Calcium 9.0 Phosphorus 2.7 Magnesium 1.7 L TSH 1.25 03/31/19 03/31/19 03/31/19 08:20 11:19 16:15 WBC 7.3 RBC 3.55 L Hgb 9.6 L Hct 28.9 L MCV 81.4 MCH 27.1 MCHC 33.3 RDW 14.2 Plt Count 192 MPV 9.3 Absolute Neuts (auto) 5.2 Neutrophils % 71.7 Lymphocytes % 17.3 Monocytes % 6.2 Eosinophils % 3.9 Basophils % 0.9 Nucleated RBC % 0 Sodium Potassium Chloride Carbon Dioxide Anion Gap BUN Creatinine Est GFR (CKD-EPI)AfAm Est GFR (CKD-EPI)NonAf POC Glucometer 227 192 Random Glucose Calcium Phosphorus Magnesium TSH Active Medications Generic Name Dose Route Start Last Admin Trade Name Freq PRN Reason Stop Dose Admin Albuterol Sulfate 1 amp 03/28/19 19:04 Ventolin 0.083% Nebulizer Soln - NEB Q6H PRN SHORT OF BREATH/WHEEZING Amlodipine Besylate 10 mg 03/30/19 10:00 03/31/19 09:38 Norvasc - PO 10 mg DAILY [facility]INCE Administration Atorvastatin Calcium 20 mg 03/30/19 22:00 03/30/19 21:50 Lipitor - PO 20 mg HS VINCE Administration Bacitracin 1 applic 03/29/19 10:00 03/31/19 09:43 Bacitracin - TP 1 applic DAILY [facility]INCE Administration Budesonide/Formoterol Fumarate 1 puff 03/28/19 22:00 03/31/19 09:42 Symbicort 160/4.5mcg - IH 1 puff BID [facility]INCE Administration Carvedilol 25 mg 03/28/19 22:00 03/31/19 09:39 Coreg - PO 25 mg BID [facility]INCE Administration Cholecalciferol 2,000 unit 03/30/19 11:30 03/31/19 09:38 Vitamin D3 - PO 2,000 unit DAILY [facility] Administration Duloxetine HCl 20 mg 03/29/19 10:00 03/31/19 09:39 Cymbalta - PO 20 mg DAILY [facility] Administration Folic Acid 1 mg 03/30/19 10:00 03/31/19 09:39 Folic Acid - PO 1 mg DAILY [facility] Administration Heparin Sodium (Porcine) 5,000 unit 03/28/19 14:00 03/31/19 13:28 Heparin - SQ 5,000 unit TID [facility]INCE Administration Hydroxychloroquine Sulfate 400 mg 03/28/19 22:00 03/31/19 09:38 Plaquenil - PO 400 mg BID [facility]INCE Administration Insulin Aspart 1 vial 04/01/19 07:00 Novolog Vial Sliding Scale - SQ TIDAC [facility] Protocol Insulin Detemir 18 units 03/29/19 22:00 03/30/19 21:52 Levemir Vial SQ 18 units HS [facility]INCE Administration Montelukast Sodium 10 mg 03/28/19 22:00 03/30/19 21:50 Singulair - PO 10 mg HS [facility]IN[facility] Administration Non-Formulary Medication 1,000 mg 03/28/19 14:00 Mesalamine [Pentasa] PO QID [facility] Oxycodone HCl 2.5 mg 03/30/19 11:31 Roxicodone - PO Q6H PRN PAIN LEVEL 7 - 10 Pantoprazole Sodium 40 mg 03/29/19 10:00 03/31/19 09:38 Protonix - PO 40 mg DAILY [facility] Administration Polyethylene Glycol 17 gm 03/30/19 10:00 03/31/19 09:42 Miralax (For Daily Use) - PO Not Given DAILY [facility] Pregabalin 25 mg 03/30/19 11:31 03/31/19 13:28 Lyrica - PO 25 mg TID [facility]IN[facility] Administration ASSESSMENT/PLAN: Ms. Castanon is a 58y/o female with IDDM2, HTN, CKD, asthma, RA, breast cancer s/p radiation, fibromyalgia, and recent incarcerated hernia s/p repair who presents following a mechanical fall. #hyperglycemia 2/2 uncontrolled IDDM2 -BGM 706 at admission, A1C 12.2 -SSI -Levemir 18U -BGMs -endocrine following #[place] on CKD, improved #right 1st toe ulcer -Santyl -MRI to be done out pt -podiatry following -vascular following #tremor -neuro following #HTN -amlodipine 10mg daily -carvedilol 25mg BID #asthma -albuterol -Symbicort -singulair #fibromyalgia -duloxetine 20mg daily -pregabalin 25mg TID -oxycodone 2.5mg Q6H PRN #RA -Plaquenil 400mg BID -mesalamine- not in formulary #HLD -atorvastatin 20mg daily DVT Ppx heparin FEN PO fluids monitor K, Cr diabetic diet dispo waiting for approval for home services due to weakness Visit type - Emergency Visit Emergency Visit: Yes ED Registration Date: 03/28/19 Care time: The patient presented to the Emergency Department on the above date and was hospitalized for further evaluation of their emergent condition. - New Patient This patient is new to me today: No - Critical Care Critical Care patient: No - Discharge Referral Referred to [facility] Med P.C.: No ATTENDING PHYSICIAN STATEMENT I saw and evaluated the patient. I reviewed the resident's note and discussed the case with the resident. I agree with the resident's findings and plan as documented. SUBJECTIVE: OBJECTIVE: ASSESSMENT AND PLAN:
[2019-03-31] MEDS: oxyCODONE HCL 5 MG TABLET PO PRN (20:50)
[2019-03-31] MEDS ORDERED: INSULIN (NOVOLOG) ASPART 100 UNITS/ML 10ML VIAL ONE (21:01)
[2019-03-31] MEDS: ATORVASTATIN CA 20 MG TABLET (FP) PO SCH (21:47)
[2019-03-31] MEDS: MONTELUKAST NA 10 MG TABLET PO SCH (21:47)
[2019-03-31] MEDS: INSULIN (LEVEMIR) 100 UNITS/ML UNITS SQ SCH (21:47)
--- NOTE | 2019-03-31 21:53 | PN ---
Teaching Attending Note Name of Resident: Diana Jackson ATTENDING PHYSICIAN STATEMENT I saw and evaluated the patient. I reviewed the resident's note and discussed the case with the resident. I agree with the resident's findings and plan as documented. SUBJECTIVE: Patient is feeling slightly better with no acute distress. continues to feel tired. Vital Signs Temperature 98.5 F 03/31/19 15:28 Pulse Rate 78 03/31/19 15:28 Respiratory Rate 22 H 03/31/19 15:28 Blood Pressure 136/74 03/31/19 15:28 O2 Sat by Pulse Oximetry (%) 95 03/30/19 21:00 GENERAL: The patient is awake, alert, and fully oriented, in no acute distress. HEAD: Normal with no signs of trauma. EYES: PERRL, extraocular movements intact, conjunctiva clear. ENT: Ears normal, moist mucous membranes. NECK: Trachea midline, full range of motion LUNGS: Clear to auscultation bilaterally, no wheezes HEART: Regular rate and rhythm, no murmur ABDOMEN: Soft, obese, nontender, nondistended, normoactive bowel sounds EXTREMITIES: Warm, well-perfused, no edema. Right 1st toe dried ulcer on medial surface. NEUROLOGICAL: Cranial nerves II through XII grossly intact. Normal speech. PSYCH: Normal mood, normal affect. SKIN: Warm, dry, normal turgor CBCD WBC 7.3 K/mm3 (4.0-10.0) 03/31/19 08:20 RBC 3.55 M/mm3 (3.60-5.2) L 03/31/19 08:20 Hgb 9.6 GM/dL (10.7-15.3) L 03/31/19 08:20 Hct 28.9 % (32.4-45.2) L 03/31/19 08:20 MCV 81.4 fl (80-96) 03/31/19 08:20 MCHC 33.3 g/dl (32.0-36.0) 03/31/19 08:20 RDW 14.2 % (11.6-15.6) 03/31/19 08:20 Plt Count 192 K/MM3 (134-434) 03/31/19 08:20 MPV 9.3 fl (7.5-11.1) 03/31/19 08:20 CMP Sodium 143 mmol/L (136-145) 03/31/19 08:20 Potassium 3.8 mmol/L (3.5-5.1) 03/31/19 08:20 Chloride 111 mmol/L (98-107) H 03/31/19 08:20 Carbon Dioxide 24 mmol/L (21-32) 03/31/19 08:20 Anion Gap 8 MMOL/L (8-16) 03/31/19 08:20 BUN 28.9 mg/dL (7-18) H 03/31/19 08:20 Creatinine 3.1 mg/dL (0.55-1.3) H 03/31/19 08:20 Random Glucose 115 mg/dL (74-106) H 03/31/19 08:20 Calcium 9.0 mg/dL (8.5-10.1) 03/31/19 08:20 Total Bilirubin 0.3 mg/dL (0.2-1) 03/30/19 07:25 AST 12 U/L (15-37) L 03/30/19 07:25 ALT 14 U/L (13-61) 03/30/19 07:25 Alkaline Phosphatase 80 U/L (45-117) 03/30/19 07:25 Total Protein 6.4 g/dl (6.4-8.2) 03/30/19 07:25 Albumin 2.3 g/dl (3.4-5.0) L 03/30/19 07:25 CARDIAC ENZYMES Creatine Kinase 89 U/L (26-192) 03/28/19 01:22 Troponin I < 0.02 ng/ml (0.00-0.05) 03/28/19 01:22 Angie Current Medications Generic Name Dose Route Start Last Admin Trade Name Freq PRN Reason Stop Dose Admin Albuterol Sulfate 1 amp 03/28/19 19:04 Ventolin 0.083% Nebulizer Soln - NEB Q6H PRN SHORT OF BREATH/WHEEZING Amlodipine Besylate 10 mg 03/30/19 10:00 03/31/19 09:38 Norvasc - PO 10 mg DAILY VINCE Administration Atorvastatin Calcium 20 mg 03/30/19 22:00 03/31/19 21:47 Lipitor - PO 20 mg HS VINCE Administration Bacitracin 1 applic 03/29/19 10:00 03/31/19 09:43 Bacitracin - TP 1 applic DAILY VINCE Administration Budesonide/Formoterol Fumarate 1 puff 03/28/19 22:00 03/31/19 21:47 Symbicort 160/4.5mcg - IH 1 puff BID VINCE Administration Carvedilol 25 mg 03/28/19 22:00 03/31/19 21:47 Coreg - PO 25 mg BID VINCE Administration Cholecalciferol 2,000 unit 03/30/19 11:30 03/31/19 09:38 Vitamin D3 - PO 2,000 unit DAILY VINCE Administration Duloxetine HCl 20 mg 03/29/19 10:00 03/31/19 09:39 Cymbalta - PO 20 mg DAILY VINCE Administration Folic Acid 1 mg 03/30/19 10:00 03/31/19 09:39 Folic Acid - PO 1 mg DAILY VINCE Administration Heparin Sodium (Porcine) 5,000 unit 03/28/19 14:00 03/31/19 21:47 Heparin - SQ 5,000 unit TID [facility] Administration Hydroxychloroquine Sulfate 400 mg 03/28/19 22:00 03/31/19 21:46 Plaquenil - PO 400 mg BID VINCE Administration Insulin Aspart 1 vial 04/01/19 07:00 Novolog Vial Sliding Scale - SQ TIDAC [facility] Protocol Insulin Detemir 18 units 03/29/19 22:00 03/31/19 21:47 Levemir Vial SQ 18 units HS VINCE Administration Montelukast Sodium 10 mg 03/28/19 22:00 03/31/19 21:47 Singulair - PO 10 mg HS [facility]INCE Administration Non-Formulary Medication 1,000 mg 03/28/19 14:00 Mesalamine [Pentasa] PO QID [facility] Oxycodone HCl 2.5 mg 03/30/19 11:31 03/31/19 20:50 Roxicodone - PO 2.5 mg Q6H PRN Administration PAIN LEVEL 7 - 10 Pantoprazole Sodium 40 mg 03/29/19 10:00 03/31/19 09:38 Protonix - PO 40 mg DAILY VINCE Administration Polyethylene Glycol 17 gm 03/30/19 10:00 03/31/19 09:42 Miralax (For Daily Use) - PO Not Given DAILY [facility] Pregabalin 25 mg 03/30/19 11:31 03/31/19 21:47 Lyrica - PO 25 mg TID [facility]IN[facility] Administration e Medications Medication Instructions Recorded Carvedilol 25 mg PO BID 10/22/14 Montelukast Na [Singulair -] 10 mg PO HS 10/22/14 Pregabalin [Lyrica -] 75 mg PO TID 10/22/14 Cholecalciferol (Vitamin D3) 50,000 unit PO WEEKLY 01/26/16 [Vitamin D3] Tamoxifen Citrate 20 mg PO DAILY 05/24/16 Albuterol 0.083% Nebulizer Page 1 amp NEB DAILY 09/18/17 [Ventolin 0.083% Nebulizer Soln -] Budesonide/Formeterol Fumarate 2 inh PO BID 09/18/17 [SYMBICORT 160/4.5mcg -] Hydroxychloroquine Sulfate 400 mg PO BID 09/18/17 [Plaquenil] Mesalamine [Pentasa] 1,000 mg PO QID 09/18/17 Pantoprazole Sodium [Protonix] 40 mg PO DAILY 09/18/17 Folic Acid - 1 mg PO DAILY #30 tablet 09/26/17 Insulin Glargine,Hum.rec.anlog 25 unit SQ BID 11/26/18 [Lantus] Atorvastatin Ca [Lipitor] 20 mg PO HS 03/01/19 Duloxetine HCl 20 mg PO DAILY 03/01/19 Acetaminophen [Tylenol .Regular 650 mg PO Q6H PRN #15 tablet 03/05/19 Strength -] Amlodipine Besylate [Norvasc -] 5 mg PO DAILY #30 tablet 03/05/19 Bacitracin - [Bacitracin Topical 1 applic TP DAILY #30 applic 03/05/19 Ointment -] Insulin Lispro [Humalog] 25 unit SQ BID #15 ml 03/06/19 Oxycodone HCl [Roxicodone] 5 mg PO Q8H PRN #9 tablet MDD 3 tab 03/06/19 Amlodipine Besylate [Norvasc -] 10 mg PO DAILY 03/29/19 Ergocalciferol (Vitamin D2) 50,000 unit PO WEEKLY 03/29/19 [Vitamin D2] Insulin Glargine,Hum.rec.anlog 28 units SQ BID 03/29/19 [Basaglmassimo Barrett U-100] Laboratory Tests 03/28/19 03/28/19 03/28/19 01:22 01:22 09:50 WBC 11.7 H 11.7 H ESR 89 H Sodium 130 L Potassium BUN Creatinine Random Glucose 706 H* Hemoglobin A1c % Triglycerides Cholesterol Total LDL Cholesterol HDL Cholesterol Beta-Hydroxybutyrate 5.6 H 03/28/19 03/28/19 03/28/19 09:50 09:50 09:50 WBC ESR Sodium Potassium 3.3 L BUN Creatinine Random Glucose Hemoglobin A1c % 12.2 H Triglycerides 235 H Cholesterol 114 Total LDL Cholesterol 57 HDL Cholesterol 37 L Beta-Hydroxybutyrate 03/29/19 03/29/19 07:07 07:07 WBC 7.6 ESR Sodium Potassium BUN 34.3 H Creatinine 3.7 H Random Glucose Hemoglobin A1c % Triglycerides Cholesterol Total LDL Cholesterol HDL Cholesterol Beta-Hydroxybutyrate Assessment and plan: Patient is a 58y/of with PMhx of IDDM2, HTN, CKD, asthma, RA, breast cancer s/ p radiation, fibromyalgia, and recent incarcerated hernia s/p repair who presents following a mechanical fall and was found to have sugar of 700's. #S/P Fall : reviewed the xrays , no fx is noted. #hyperglycemia: Uncontrolled BS with hA1c of 12, endocrine consult appreciated . #[place] on CKD, improving, nephro consult appreciated , on IVF NS #right 1st toe ulcer, chronic , on the case #HTN continue amlodipine, carvedilol #Hx of asthma, continue albuterol/symbicort/singuilar #fibromyalgia continue home meds duloxetine/pregabalin/oxycodone #RA continue Plaquenil/mesalamine #HLD: atorvastatin #Hx of Breast Cancer on tamoxifen continue DVT Ppx: heparin pending MRI of the toe, if stable can be discharged in am
[2019-04-01] MEDS: PREGABALIN 25 MG CAPSULE PO SCH ×2 (05:58→14:39)
[2019-04-01] MEDS: HEPARIN NA (PORCINE) 5,000 UNITS/ML 1ML VIAL SQ SCH ×2 (05:58→14:39)
[2019-04-01] MEDS: INSULIN SLIDING SCALE (NOVOLOG) 1 VIAL SQ SCH ×2 (06:13→11:19)
[2019-04-01 08:53] LABS: BLOOD UREA NITROGEN 31.4 mg/dL (7-18); CALCIUM 8.8 mg/dL (8.5-10.1); CREATININE 2.9 mg/dL (0.55-1.3); MAGNESIUM 1.8 mg/dL (1.8-2.4); PHOSPHOROUS 3.1 mg/dL (2.5-4.9); POTASSIUM 3.9 mmol/L (3.5-5.1)
--- NOTE | 2019-04-01 09:05 | PN ---
Progress Note, Physician History of Present Illness: stable no new issues - Current Medication List Current Medications: Active Medications Albuterol Sulfate (Ventolin 0.083% Nebulizer Soln -) 1 amp NEB Q6H PRN PRN Reason: SHORT OF BREATH/WHEEZING Amlodipine Besylate (Norvasc -) 10 mg PO DAILY [facility] Last Admin: 03/31/19 09:38 Dose: 10 mg Atorvastatin Calcium (Lipitor -) 20 mg PO HS [facility] Last Admin: 03/31/19 21:47 Dose: 20 mg Bacitracin (Bacitracin -) 1 applic TP DAILY [facility] Last Admin: 03/31/19 09:43 Dose: 1 applic Budesonide/Formoterol Fumarate (Symbicort 160/4.5mcg -) 1 puff IH BID [facility] Last Admin: 03/31/19 21:47 Dose: 1 puff Carvedilol (Coreg -) 25 mg PO BID [facility] Last Admin: 03/31/19 21:47 Dose: 25 mg Cholecalciferol (Vitamin D3 -) 2,000 unit PO DAILY [facility] Last Admin: 03/31/19 09:38 Dose: 2,000 unit Duloxetine HCl (Cymbalta -) 20 mg PO DAILY [facility] Last Admin: 03/31/19 09:39 Dose: 20 mg Folic Acid (Folic Acid -) 1 mg PO DAILY [facility] Last Admin: 03/31/19 09:39 Dose: 1 mg Heparin Sodium (Porcine) (Heparin -) 5,000 unit SQ TID [facility] Last Admin: 04/01/19 05:58 Dose: 5,000 unit Hydroxychloroquine Sulfate (Plaquenil -) 400 mg PO BID [facility] Last Admin: 03/31/19 21:46 Dose: 400 mg Insulin Aspart (Novolog Vial Sliding Scale -) 1 vial SQ TIDAC [facility]; Protocol Last Admin: 04/01/19 06:13 Dose: 6 units Insulin Detemir (Levemir Vial) 18 units SQ [facility] Last Admin: 03/31/19 21:47 Dose: 18 units Montelukast Sodium (Singulair -) 10 mg PO HS [facility] Last Admin: 03/31/19 21:47 Dose: 10 mg Non-Formulary Medication (Mesalamine [Pentasa]) 1,000 mg PO QID [facility] Oxycodone HCl (Roxicodone -) 2.5 mg PO Q6H PRN PRN Reason: PAIN LEVEL 7 - 10 Last Admin: 03/31/19 20:50 Dose: 2.5 mg Pantoprazole Sodium (Protonix -) 40 mg PO DAILY [facility] Last Admin: 03/31/19 09:38 Dose: 40 mg Pregabalin (Lyrica -) 25 mg PO TID [facility] Last Admin: 04/01/19 05:58 Dose: 25 mg - Objective Vital Signs: Vital Signs Temperature 98.1 F 04/01/19 06:00 Pulse Rate 66 04/01/19 06:00 Respiratory Rate 20 04/01/19 06:00 Blood Pressure 156/86 04/01/19 06:00 O2 Sat by Pulse Oximetry (%) 97 03/31/19 21:00 Constitutional: Yes: No Distress, Calm Cardiovascular: Yes: S1, S2 Respiratory: Yes: Regular, CTA Bilaterally Gastrointestinal: Yes: Normal Bowel Sounds, Soft Musculoskeletal: Yes: WNL Extremities: Yes: Other Wound/Incision: Yes: Other (wound of the toe) Neurological: Yes: Alert, Oriented Psychiatric: Yes: Alert, Oriented Labs: CBC, BMP 03/31/19 08:20 04/01/19 07:35 INR, PTT INR 0.98 (0.83-1.09) 03/28/19 09:50 Assessment/Plan Problem List - Problems (1) Hyperglycemia Code(s): R73.9 - HYPERGLYCEMIA, UNSPECIFIED (2) Diabetes Code(s): E11.9 - TYPE 2 DIABETES MELLITUS WITHOUT COMPLICATIONS Qualifiers: (3) [place] (acute kidney injury) Code(s): N17.9 - ACUTE KIDNEY FAILURE, UNSPECIFIED Assessment/Plan 58 y.o. female with PMH of IDDM, HTN, CKD, RA, fibromyalgia, chronic LBP, Breast CA s/p RT, strangulated hernia s/p repair during last hospital admission (03/01/19 - 03/06/19) and a Rt 1st toe wound presented to the ER s/p fall in the bathroom at home with c/o b/l hip pain s/p Fall Hip Pain Rt toe ulcer Uncontrolled DM Hyperglycemia [place] on CKD Hx of Breast CA s/p RT Hx of strangulated hernia s/p repair - site healed RA Fibromyalgia HTN Chronic LBP plan continue current mgmt wound care rest as per the team await for imaging studies
--- NOTE | 2019-04-01 09:43 | PN ---
Progress Note (short form) - Note Progress Note: 58 year old female history of IDDM,HTN,CKD, Asthma, RA, Breast cancer, fibromyalgia, She admitted for fall and also have tremors . Her tremros are mostly when she is doing something in kitchen or writing. Her mom also have tremors. Patient had ct head c spine and they were unremarkable. Grace denies singificant tremors at rest. Spoke to primary, she continue to have action tremors, and some of her medicaiton ( cymbalta, lyrica ) has been adjusted NEUROLOGICAL EXAMINATION Alert oriented x 3, speech is normal, no neck stiffness, vss eomi, pupils reactive no facial asymmetry moving all ext sensation is normal there is tremors on out stretching hand no bradykineisa or cogwhee rigidity identiifed Assessment/Plan no evidence of PD, her symptoms are essential tremors and can be exaggerated by cymbalta, oxycodone, albuterol inhaler Plan: obtain tsh - some of her medication is being adjusted ( cymbalta, lyrica, and oxycodone - consider gabapentin 300 mg po bid if symptoms are disability - it was discused with patient - follow up outpatient Thanking you so much Bernardo Felton MD
[2019-04-01] MEDS: FOLIC ACID 1 MG TABLET (FP) PO SCH (10:24)
[2019-04-01] MEDS: amLODIPine BESYLATE 10 MG TABLET (FP) PO SCH (10:24)
[2019-04-01] MEDS: CARVEDILOL 12.5 MG TABLET (FP) PO SCH (10:24)
[2019-04-01] MEDS: CHOLECALCIFEROL (VIT D3) 1,000 UNIT (25 MCG) TABLET PO SCH (10:25)
[2019-04-01] MEDS: BUDESONIDE/FORMETEROL FUMARATE 160/4.5 mcg INHALER IH SCH (10:25)
[2019-04-01] MEDS: PANTOPRAZOLE 40 MG TABLET (FP) PO SCH (10:25)
[2019-04-01] MEDS: DULoxetine HCL 20 MG CAPSULE.DR PO SCH (10:25)
[2019-04-01] MEDS: HYDROXYCHLOROQUINE SO4 200 MG TABLET (FP) PO SCH (10:25)
[2019-04-01] MEDS: BACITRACIN 15 GM TUBE TOPICAL OINTMENT TP SCH (10:25)
[2019-04-01] MEDS: oxyCODONE HCL 5 MG TABLET PO PRN (10:26)
[2019-04-01 11:34] VITALS: TEMP 98.3
--- NOTE | 2019-04-01 12:39 | DS ---
Physical Exam: SUBJECTIVE: Patient seen and examined. She reports weakness is much improved. Back pain is still present. She denies chest pain, shortness of breath, abdominal pain, nausea, or vomiting. OBJECTIVE: Vital Signs Period Temp Pulse Resp BP Sys/Ronquillo Pulse Ox Last 24 Hr 98.1 F-98.7 F 62-78 20-22 123-156/53-86 97-97 PHYSICAL EXAM GENERAL: The patient is awake, alert, and fully oriented, in no acute distress. HEAD: Normal with no signs of trauma. EYES: PERRL, extraocular movements intact, conjunctiva clear. ENT: Ears normal, nares patent, moist mucous membranes. NECK: Trachea midline, full range of motion LUNGS: Clear to auscultation bilaterally, no wheezes HEART: Regular rate and rhythm, no murmur ABDOMEN: Soft, obese, nontender, nondistended, normoactive bowel sounds BACK: ecchymosis left scapula EXTREMITIES: Warm, well-perfused, no edema. Right 1st toe dried ulcer on medial surface. NEUROLOGICAL: Cranial nerves II through XII grossly intact. Normal speech. No tremors noted. PSYCH: Normal mood, normal affect. SKIN: Warm, dry, normal turgor LABS Laboratory Results - last 24 hr 03/31/19 03/31/19 03/31/19 08:20 16:15 20:54 Sodium 143 Potassium 3.8 Chloride 111 H Carbon Dioxide 24 Anion Gap 8 BUN 28.9 H Creatinine 3.1 H Est GFR (CKD-EPI)AfAm 18.44 Est GFR (CKD-EPI)NonAf 15.91 POC Glucometer 192 199 Random Glucose 115 H Calcium 9.0 Phosphorus 2.7 Magnesium 1.7 L TSH 1.25 04/01/19 04/01/19 04/01/19 05:54 07:35 11:10 Sodium 143 Potassium 3.9 Chloride 112 H Carbon Dioxide 26 Anion Gap 5 L BUN 31.4 H Creatinine 2.9 H Est GFR (CKD-EPI)AfAm 19.99 Est GFR (CKD-EPI)NonAf 17.25 POC Glucometer 190 195 Random Glucose 172 H Calcium 8.8 Phosphorus 3.1 Magnesium 1.8 TSH HOSPITAL COURSE: Ms. Castanon is a 58y/o female with IDDM2, HTN, CKD, asthma, RA, breast cancer s/p radiation, fibromyalgia, and recent incarcerated hernia s/p repair who presents following a mechanical fall. Imaging was negative for fx and pt had sore back that did improve. Pt was found to be hyperglycemic in ED at 706 with A1C 12.2. Long-acting insulin and SSI were adjusted for pt with improvements into 100s and 200s. She was also educated on diet and exercise. Pt also had [place] which improved with fluids. A right 1st toe ulcer was present that was not actively draining. She was instructed to have an MRI done as an out pt but was given Santyl during course. Pt also reported tremor that was noticeable in upper extremities but improved. Chronic pain medications were adjusted to decrease weakness and potential falls. Date of Admission:03/28/19 Date of Discharge: 04/01/19 Minutes to complete discharge: 35 Discharge Summary Problems reviewed: Yes Reason For Visit: DIABETES MELLITUS/HYPERGLYCEMIA Current Active Problems Acute kidney injury superimposed on CKD (Acute) COPD (chronic obstructive pulmonary disease) (Acute) Chronic pain (Acute) Chronic ulcer of great toe of right foot (Acute) Fall (Acute) Hypercholesterolemia (Acute) Hyperglycemia (Acute) Hypertension (Acute) Nonhealing ulcer of left lower extremity (Acute) Condition: Stable - Instructions Diet, Activity, Other Instructions: YOUR VISIT: You were admitted to the hospital after a fall. You were found to have high blood sugar. Your insulin was adjusted, and your sugars improved. MEDICATIONS: Changes were made to your home medications Insulin (Basaglar) 18 units at night Pregabalin 25mg three times a day (was decreased form 75mg due to your kidney function ) We are also starting you on an insulin sliding scale ; your sugars need to be checked before every meal and based on the number give yourself the following units accordingly 100-150 0 units 151-200 2 units 201-250 4 units 251-300 6 units 301-350 8 units 351-400 10 units >400 12 units- call your DR Continue your other home medications as usual. FOLLOW UP: Dr. Villalobos, primary care, [address] Katz, endocrinology, [address] Felton, neurology, [address] Whitaker, podiatry, [address] Rashid, internet retailer 1 week after discharge You will also need to get a prescription from Dr. Villalobos to get an MRI of your lower extremity to further evaluate the wound on your toe OTHER INSTRUCTIONS: Please follow instructions given here to eat a healthier, low carbohydrate diet and exercise regularly. Return to the emergency room or call 911 if you have changes in your mental status, dizziness, chest pain, difficulty breathing, worsening tremors, abdominal pain, or vomiting. Referrals: Bernardo Felton MD [Staff Physician] - 1 Week Zachary Rogel MD [Primary Care Provider] - 1 Week Riley Rashid MD [Staff Physician] - 1 Week Bay Katz MD [Staff Physician] - 1 Week Omero Whitaker DPM [Staff Physician] - 1 Week Disposition: HOME - Home Medications Comprehensive Discharge Medication List: Ambulatory Orders Carvedilol 25 mg PO BID 10/22/14 Montelukast Na [Singulair -] 10 mg PO HS 10/22/14 Albuterol 0.083% Nebulizer Page [Ventolin 0.083% Nebulizer Soln -] 1 amp NEB DAILY 09/18/17 Budesonide/Formeterol Fumarate [SYMBICORT 160/4.5mcg -] 2 inh PO BID 09/18/17 Hydroxychloroquine Sulfate [Plaquenil] 400 mg PO BID 09/18/17 Mesalamine [Pentasa] 1,000 mg PO QID 09/18/17 Pantoprazole Sodium [Protonix] 40 mg PO DAILY 09/18/17 Atorvastatin Ca [Lipitor] 20 mg PO HS 03/01/19 Duloxetine HCl 20 mg PO DAILY 03/01/19 Acetaminophen [Tylenol .Regular Strength -] 650 mg PO Q6H PRN #15 tablet Amlodipine Besylate [Norvasc -] 10 mg PO DAILY 03/29/19 Ergocalciferol (Vitamin D2) [Vitamin D2] 50,000 unit PO WEEKLY 03/29/19 Alcohol Antiseptic Pads [Alcohol Prep Pad] 1 each TP HS #1 box 03/31/19 Insulin (LOG) Aspart [NovoLOG -] See Protocol SQ AC #1 vial 03/31/19 Insulin Detemir [Levemir Flextouch] 18 unit SQ HS #5 insuln.pen 03/31/19 Pen Needle, Diabetic [Unifine Pentips] 1 unit MC HS #1 box 03/31/19 Pregabalin [Lyrica -] 25 mg PO TID #90 capsule MDD 75mg 03/31/19 Syring-Needl,Disp,Insul,0.3 ml [Advocate Syringes] 1 each [facility] #100 disp.syrin 03/31/19 This patient is new to me today: No Emergency Visit: Yes ED Registration Date: 03/28/19 Care time: The patient presented to the Emergency Department on the above date and was hospitalized for further evaluation of their emergent condition. Critical Care patient: No - Discharge Referral Referred to [facility] Med [facility].C[facility] No ATTENDING PHYSICIAN STATEMENT I saw and evaluated the patient. I reviewed the resident's note and discussed the case with the resident. I agree with the resident's findings and plan as documented. SUBJECTIVE: OBJECTIVE: ASSESSMENT AND PLAN:
--- NOTE | 2019-04-01 12:57 | PN ---
Progress Note (short form) - Note Progress Note: Renal follow up for [place] on CKD Seen and examined at the bedside awake and alert, felt dizzy this morning no sob, chest pain, fever, chills tolerating oral diet Vital Signs Temperature 98.3 F 04/01/19 10:00 Pulse Rate 62 04/01/19 10:00 Respiratory Rate 20 04/01/19 10:00 Blood Pressure 123/53 L 04/01/19 10:00 O2 Sat by Pulse Oximetry (%) 97 04/01/19 09:00 Intake & Output 03/29/19 03/30/19 03/31/19 04/01/19 23:59 23:59 23:59 23:59 Intake Total 2170 3450 1300 83 Balance 2170 3450 1300 83 NAD awake and alert neck supple, no JVD RRR CTA soft NT/ND no Le edema, clubbing or cyanosis no flank pain CBC, BMP 03/31/19 08:20 04/01/19 07:35 Current Medications Albuterol Sulfate (Ventolin 0.083% Nebulizer Soln -) 1 amp NEB Q6H PRN PRN Reason: SHORT OF BREATH/WHEEZING Amlodipine Besylate (Norvasc -) 10 mg PO DAILY [facility] Last Admin: 04/01/19 10:24 Dose: 10 mg Atorvastatin Calcium (Lipitor -) 20 mg PO HS [facility] Last Admin: 03/31/19 21:47 Dose: 20 mg Bacitracin (Bacitracin -) 1 applic TP DAILY [facility] Last Admin: 04/01/19 10:25 Dose: 1 applic Budesonide/Formoterol Fumarate (Symbicort 160/4.5mcg -) 1 puff IH BID [facility] Last Admin: 04/01/19 10:25 Dose: 1 puff Carvedilol (Coreg -) 25 mg PO BID [facility] Last Admin: 04/01/19 10:24 Dose: 25 mg Cholecalciferol (Vitamin D3 -) 2,000 unit PO DAILY [facility] Last Admin: 04/01/19 10:25 Dose: 2,000 unit Duloxetine HCl (Cymbalta -) 20 mg PO DAILY [facility] Last Admin: 04/01/19 10:25 Dose: 20 mg Folic Acid (Folic Acid -) 1 mg PO DAILY [facility] Last Admin: 04/01/19 10:24 Dose: 1 mg Heparin Sodium (Porcine) (Heparin -) 5,000 unit SQ TID [facility] Last Admin: 04/01/19 05:58 Dose: 5,000 unit Hydroxychloroquine Sulfate (Plaquenil -) 400 mg PO BID [facility] Last Admin: 04/01/19 10:25 Dose: 400 mg Insulin Aspart (Novolog Vial Sliding Scale -) 1 vial SQ TIDAC [facility]; Protocol Last Admin: 04/01/19 11:19 Dose: 6 units Insulin Detemir (Levemir Vial) 18 units SQ [facility] Last Admin: 03/31/19 21:47 Dose: 18 units Montelukast Sodium (Singulair -) 10 mg PO HS [facility] Last Admin: 03/31/19 21:47 Dose: 10 mg Non-Formulary Medication (Mesalamine [Pentasa]) 1,000 mg PO QID [facility] Oxycodone HCl (Roxicodone -) 2.5 mg PO Q6H PRN PRN Reason: PAIN LEVEL 7 - 10 Last Admin: 04/01/19 10:26 Dose: 2.5 mg Pantoprazole Sodium (Protonix -) 40 mg PO DAILY [facility] Last Admin: 04/01/19 10:25 Dose: 40 mg Pregabalin (Lyrica -) 25 mg PO TID [facility] Last Admin: 04/01/19 05:58 Dose: 25 mg 58 year old woman with with history of CKD stage 4, DM on insulin, hypertension , Asthma, Ra, breast cancer s/p radiation therapy who presented with fall at home and tremors and noted to have Cr of 4. Pt denies any changes in urine output, N/V/D, NSAID use, flank pain, dysuria, frequency, skin rash or change in appetite. 1. CKD stage 4 with elevated Cr compared to baseline 2. Mechanical falls 3. Tremors 4. Acute on chronic anemia 5. Hypertension 6. DM Renal function improved to near baseline stable for discharge without outpatient follow up with primary felling bucking supervisor Riley Rashid DO
[2019-04-01 13:44] VITALS: BP 133/54; PULSE 64
--- NOTE | 2019-04-01 14:51 | PN ---
Progress Note (short form) - Note Progress Note: Feels good Blood sugar <200 No hypos Vital Signs Period Temp Pulse Resp BP Sys/Ronquillo Pulse Ox Last 24 Hr 98.1 F-98.7 F 62-78 20-22 123-156/53-86 97-97 PE: AOx3 Neck: Supple, No JVDHEH HEENT: EOMI Lungs: CTA CVS: S1S2 Abd: Benign Ext: No edema, + Tremors Neuro: No focal deficit CMP Sodium 143 mmol/L (136-145) 04/01/19 07:35 Potassium 3.9 mmol/L (3.5-5.1) 04/01/19 07:35 Chloride 112 mmol/L (98-107) H 04/01/19 07:35 Carbon Dioxide 26 mmol/L (21-32) 04/01/19 07:35 Anion Gap 5 MMOL/L (8-16) L 04/01/19 07:35 BUN 31.4 mg/dL (7-18) H 04/01/19 07:35 Creatinine 2.9 mg/dL (0.55-1.3) H 04/01/19 07:35 Est GFR (CKD-EPI)AfAm 19.99 04/01/19 07:35 Est GFR (CKD-EPI)NonAf 17.25 04/01/19 07:35 POC Glucometer 195 UNITS (80-120) 04/01/19 11:10 Random Glucose 172 mg/dL (74-106) H 04/01/19 07:35 Hemoglobin A1c % 12.2 % (4.2-6.3) H 03/28/19 09:50 Calcium 8.8 mg/dL (8.5-10.1) 04/01/19 07:35 Phosphorus 3.1 mg/dL (2.5-4.9) 04/01/19 07:35 Magnesium 1.8 mg/dL (1.8-2.4) 04/01/19 07:35 Total Bilirubin 0.3 mg/dL (0.2-1) 03/30/19 07:25 AST 12 U/L (15-37) L 03/30/19 07:25 ALT 14 U/L (13-61) 03/30/19 07:25 Alkaline Phosphatase 80 U/L (45-117) 03/30/19 07:25 Creatine Kinase 89 U/L (26-192) 03/28/19 01:22 Troponin I < 0.02 ng/ml (0.00-0.05) 03/28/19 01:22 C-Reactive Protein < 0.3 MG/DL (0.00-0.3) 03/28/19 09:50 Total Protein 6.4 g/dl (6.4-8.2) 03/30/19 07:25 Albumin 2.3 g/dl (3.4-5.0) L 03/30/19 07:25 Triglycerides 235 mg/dL (0-150) H 03/28/19 09:50 Cholesterol 114 mg/dL (50-200) 03/28/19 09:50 Total LDL Cholesterol 57 mg/dL (5-100) 03/28/19 09:50 HDL Cholesterol 37 mg/dL (40-60) L 03/28/19 09:50 Beta-Hydroxybutyrate 5.6 mg/dL (0.2-2.8) H 03/28/19 01:22 TSH 1.25 uIU/ml (0.358-3.74) 03/31/19 08:20 Current Medications Generic Name Dose Route Start Last Admin Trade Name Freq PRN Reason Stop Dose Admin Albuterol Sulfate 1 amp 03/28/19 19:04 Ventolin 0.083% Nebulizer Soln - NEB Q6H PRN SHORT OF BREATH/WHEEZING Amlodipine Besylate 10 mg 03/30/19 10:00 04/01/19 10:24 Norvasc - PO 10 mg DAILY VINCE Administration Atorvastatin Calcium 20 mg 03/30/19 22:00 03/31/19 21:47 Lipitor - PO 20 mg HS VINCE Administration Bacitracin 1 applic 03/29/19 10:00 04/01/19 10:25 Bacitracin - TP 1 applic DAILY VINCE Administration Budesonide/Formoterol Fumarate 1 puff 03/28/19 22:00 04/01/19 10:25 Symbicort 160/4.5mcg - IH 1 puff BID VINCE Administration Carvedilol 25 mg 03/28/19 22:00 04/01/19 10:24 Coreg - PO 25 mg BID VINCE Administration Cholecalciferol 2,000 unit 03/30/19 11:30 04/01/19 10:25 Vitamin D3 - PO 2,000 unit DAILY VINCE Administration Duloxetine HCl 20 mg 03/29/19 10:00 04/01/19 10:25 Cymbalta - PO 20 mg DAILY VINCE Administration Folic Acid 1 mg 03/30/19 10:00 04/01/19 10:24 Folic Acid - PO 1 mg DAILY VINCE Administration Heparin Sodium (Porcine) 5,000 unit 03/28/19 14:00 04/01/19 14:39 Heparin - SQ 5,000 unit TID VINCE Administration Hydroxychloroquine Sulfate 400 mg 03/28/19 22:00 04/01/19 10:25 Plaquenil - PO 400 mg BID VINCE Administration Insulin Aspart 1 vial 04/01/19 07:00 04/01/19 11:19 Novolog Vial Sliding Scale - SQ 6 units TIDAC VINCE Administration Protocol Insulin Detemir 18 units 03/29/19 22:00 03/31/19 21:47 Levemir Vial SQ 18 units HS VINCE Administration Montelukast Sodium 10 mg 03/28/19 22:00 03/31/19 21:47 Singulair - PO 10 mg HS VINCE Administration Non-Formulary Medication 1,000 mg 03/28/19 14:00 Mesalamine [Pentasa] PO QID VINCE Oxycodone HCl 2.5 mg 03/30/19 11:31 04/01/19 10:26 Roxicodone - PO 2.5 mg Q6H PRN Administration PAIN LEVEL 7 - 10 Pantoprazole Sodium 40 mg 03/29/19 10:00 04/01/19 10:25 Protonix - PO 40 mg DAILY VINCE Administration Pregabalin 25 mg 03/30/19 11:31 04/01/19 14:39 Lyrica - PO 25 mg TID VINCE Administration AP: Uncontrolled T2DM BGM 706 on admission Continue Levemir 18 units daily at HS Novolog coverage Diet exercise discussed [place] on CKD Right Toe Ulcer Local wound care Abx as necessary HTN F/u in office in 2 weeks
== END 2019-04-01 15:32 | disposition home or self-care (01) | DRG 469 ==
LOC: JER 00:08 → JERBED 06:14 → J6S 09:58
PROVIDERS: ADMIT Internal Medicine; ATTEND Internal Medicine
DX: N17.9 Acute kidney failure, unspecified (principal); M06.9 Rheumatoid arthritis, unspecified; M79.7 Fibromyalgia; E66.9 Obesity, unspecified; L97.519 Non-pressure chronic ulcer of other part of right foot with unspecified severity; R25.1 Tremor, unspecified; J45.909 Unspecified asthma, uncomplicated; M54.9 Dorsalgia, unspecified; R53.1 Weakness; E10.65 Type 1 diabetes mellitus with hyperglycemia; E88.09 Other disorders of plasma-protein metabolism, not elsewhere classified; N18.4 Chronic kidney disease, stage 4 (severe); E10.621 Type 1 diabetes mellitus with foot ulcer; I12.9 Hypertensive chronic kidney disease with stage 1 through stage 4 chronic kidney disease, or unspecified chronic kidney disease; J44.9 Chronic obstructive pulmonary disease, unspecified; E78.5 Hyperlipidemia, unspecified; D63.1 Anemia in chronic kidney disease; W19.XXXA Unspecified fall, initial encounter
CPT/HCPCS: 36415; 70450-TC; 71045-TC-FY; 72125-TC; 73502-TC-LT-FY; 73523-TC-FY; 73630-TC-RT-FY; 80048; 80053; 80061; 81003; 82010; 82550; 82565; 82803; 82962; 83036; 83721; 83735; 84100; 84300; 84443; 84484; 85025; 85610; 85651; 85730; 86140; 93005; 93010; 97116-GP; 97162-GP; 99285-25; J0131; J1644; J7030

== ENCOUNTER 2019-06-02 12:02 | Observation (INO) | payer OTHER ==
--- NOTE | 2019-06-02 13:45 | PDOC ---
History of Present Illness - General Chief Complaint: Lightheaded Stated Complaint: DIZZNESS Time Seen by Provider: 06/02/19 13:25 - History of Present Illness Initial Comments: 06/02/19 13:39 CHIEF COMPLAINT: Weakness HISTORY OF PRESENT ILLNESS: 59 year old woman with a PMH of insulin-treated DM, HTN, CKD, asthma, RA, breast cancer s/p radiation/chemo (still under going chemo , last radiation 11/2015), fibromyalgia, chronic low back pain, strangulated hernia presents to ED with generalized weakness, discomfort to R leg. Patient reports she is taking care of her mother who is hospitalized here on the 6th floor since this past Friday. Patient reports "maybe some chills" but denies fever, nausea/vomiting/diarrhea, chest pain, or shortness of breath. No recent travel or sick contacts. PAST MEDICAL HISTORY: DM, HTN, CKD, asthma, RA, breast cancer s/p radiation/ chemo (still under going chemo, last radiation 11/2015), fibromyalgia, chronic low back pain, strangulated hernia FAMILY HISTORY: Denies SOCIAL HISTORY: Denies tobacco, alcohol, illicit drug use. SURGICAL HISTORY: Denies ALLERGIES: No known drug allergies REVIEW OF SYSTEMS General/Constitutional: Generalized weakness x "a few days." HEENT: Denies change in vision. Denies ear pain or discharge. Denies sore throat. Cardiovascular: Denies chest pain or shortness of breath. Respiratory: Denies cough, wheezing, or hemoptysis. Gastrointestinal: Denies nausea, vomiting, diarrhea or constipation. Denies rectal bleeding. Genitourinary: Denies dysuria, frequency, or change in urination. Musculoskeletal: Weakness to b/l legs, discomfort to R leg. Skin and breasts: Denies rash or easy bruising. Neurologic: Denies headache, vertigo, loss of consciousness, or loss of sensation. Psychiatric: Denies depression or anxiety. PHYSICAL EXAM General Appearance: Well-appearing, appropriately dressed. No apparent distress. HEENT: EOMI, PERRLA, normal ENT inspection, normal voice, TMs normal, pharynx normal. No conjunctival pallor. No photophobia, scleral icterus. Neck: Supple. Trachea midline. No tenderness, rigidity, carotid bruit, stridor , lymphadenopathy, or thyromegaly. Respiratory/Chest: Lungs CTAB. No shortness of breath, chest tenderness, respiratory distress, accessory muscle use. No crackles, rales, rhonchi, stridor , wheezing, dullness Cardiovascular: RRR. S1, S2. No JVD, murmur, bradycardia, tachycardia. Vascular Pulses: Dorsalis-Pedis (R): 2+, Dorsalis-Pedis (L): 2+ Gastrointestinal/Abdominal: Normal bowel sounds. Abdomen soft, non-distended. No tenderness or rebound tenderness. No organomegaly, pulsatile mass, guarding , hernia, hepatomegaly, splenomegaly. Lymphatic: No adenopathy, tenderness. Musculoskeletal/Extremities: No swelling to b/l legs, no erythema, redness, TTP to b/l calves. Normal inspection. FROM of all extremities, normal capillary refill. Pelvis Stable. No CVA tenderness. No tenderness to extremities, pedal edema, swelling, erythema or deformity. Integumentary: Appropriate color, dry, warm. No cyanosis, erythema, jaundice or rash Neurologic: pet food deboner II-XII intact. Fully oriented, alert. Appropriate mood/affect. Motor strength 5/5. No appreciable EOM palsy, facial droop or sensory deficit. Past History - Past Medical History Allergies/Adverse Reactions: Allergies Allergy/AdvReac Type Severity Reaction Status Date / Time Fish Containing Products Allergy Verified 06/03/19 12:44 fish derived Allergy Verified 06/03/19 12:44 shellfish derived Allergy Swelling Verified 06/02/19 12:16 Home Medications: Ambulatory Orders Carvedilol 25 mg PO BID 10/22/14 Ergocalciferol (Vitamin D2) [Vitamin D2] 50,000 unit PO WEEKLY 03/29/19 Pregabalin [Lyrica -] 25 mg PO TID #90 capsule MDD 75mg 03/31/19 Alcohol Antiseptic Pads [Alcohol Prep Pad] 1 each TP HS #1 box 06/04/19 Amlodipine Besylate [Norvasc -] 10 mg PO DAILY #30 tablet 06/04/19 Atorvastatin Ca [Lipitor] 20 mg PO HS #30 tablet 06/04/19 Budesonide/Formeterol Fumarate [SYMBICORT 160/4.5mcg -] 2 inh PO BID #1 inhaler 06/04/19 Duloxetine HCl 20 mg PO HS #30 capsule. 06/04/19 Hydroxychloroquine Sulfate [Plaquenil] 400 mg PO DAILY #30 tablet 06/04/19 Insulin (LOG) Aspart [NovoLOG -] See Protocol SQ AC #1 vial 06/04/19 Insulin Glargine,Hum.rec.anlog [Basaglar Kwikpen U-100] 25 unit SQ HS #1 insuln.pen 06/04/19 Montelukast Na [Singulair -] 10 mg PO HS #30 tablet 06/04/19 Anemia: Yes Asthma: Yes Cancer: Yes (BREAST(LT)) COPD: No Diabetes: Yes HTN: Yes Hypercholesterolemia: Yes - Surgical History Abdominal Surgery: Yes (cholycystectomy) Appendectomy: Yes Cholecystectomy: Yes - Immunization History Td Vaccination: Yes - Psycho Social/Smoking Cessation Hx Smoking History: Never smoked Have you smoked in the past 12 months: No Hx Alcohol Use: No Drug/Substance Use Hx: No Substance Use Type: None Hx Substance Use Treatment: No *Physical Exam - Vital Signs Last Vital Signs Temp Pulse Resp BP Pulse Ox 98.0 F 99 H 16 141/68 98 06/02/19 12:13 06/02/19 12:13 06/02/19 12:13 06/02/19 12:13 06/02/19 12:13 ED Treatment Course - LABORATORY CBC & Chemistry Diagram: 06/04/19 06:30 06/04/19 06:30 Medical Decision Making - Medical Decision Making 06/02/19 14:25 59 year old woman with a PMH of insulin-treated DM, HTN, CKD, asthma, RA, breast cancer s/p radiation/chemo (still under going chemo, last radiation 2015), fibromyalgia, chronic low back pain, strangulated hernia presents to ED with generalized weakness, discomfort to R leg. -EKG -labs Laboratory Tests 06/02/19 14:30 Sodium 128 L Chloride 95 L Creatinine 3.4 H Random Glucose 814 H* Albumin 2.6 L 06/02/19 16:34 Upon further interview patient admits to not having taken her insulin in 3 weeks. 5 units insulin given via IV along with 1L fluids. 06/02/19 17:02 Insulin pending arrival from pharmacy. Discussed case with admitting MD Martínez, will give additional 5 units insulin SQ. Patient accepted for admission, inpatient vs obs pending BS control. 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
--- NOTE | 2019-06-02 14:35 | PDOC ---
*Physical Exam - Vital Signs Last Vital Signs Temp Pulse Resp BP Pulse Ox 98.0 F 99 H 16 141/68 98 06/02/19 12:13 06/02/19 12:13 06/02/19 12:13 06/02/19 12:13 06/02/19 12:13 - Physical Exam 06/02/19 14:34 The patient was examined by [SARAH chu] under my direct supervision. I personally evaluated the patient. I concur with the above findings and the plan of care. ED Treatment Course - LABORATORY CBC & Chemistry Diagram: 06/04/19 06:30 06/04/19 06:30 Discharge - Discharge Information Problems reviewed: Yes Clinical Impression/Diagnosis: Hyperglycemia, Acute kidney injury superimposed on CKD Diabetes Qualifiers: Diabetes mellitus type: type 2 Diabetes mellitus group home insulin use: unspecified group home insulin use status Diabetes mellitus complication status: with kidney complications Diabetes mellitus complication detail: with chronic kidney disease Chronic kidney disease stage: unspecified stage Qualified Code(s) : E11.22 - Type 2 diabetes mellitus with diabetic chronic kidney disease Condition: Fair - Follow up/Referral - Patient Discharge Instructions - Post Discharge Activity
[2019-06-02 15:06] LABS: BASO % 0.7 % (0-2.0); EOS % 2.6 % (0-4.5); HEMOGLOBIN 10.5 GM/dL (10.7-15.3); LYMPH % 15.9 % (8-40); MCH 26.9 pg (25.7-33.7); MCHC 32.7 g/dl (32.0-36.0); MEAN CELL VOLUME 82.1 fl (80-96); MONO % 7.1 % (3.8-10.2); NEUT % 73.7 % (42.8-82.8); PLATELET COUNT 243 K/MM3 (134-434); RBC 3.89 M/mm3 (3.60-5.2); RDW 13.9 % (11.6-15.6); WHITE BLOOD COUNT 8.2 K/mm3 (4.0-10.0)
[2019-06-02 15:20] LABS: INR 1.05 (0.83-1.09); PROTHROMBIN TIME (PATIENT) 12.4 SEC (9.7-13.0)
[2019-06-02 15:23] LABS: ACTIVATED PTT 30.2 SECONDS (25.2-36.5)
[2019-06-02 15:30] LABS: ALBUMIN 2.6 g/dl (3.4-5.0); BILIRUBIN,TOTAL 0.3 mg/dL (0.2-1); BLOOD UREA NITROGEN 12.5 mg/dL (7-18); CALCIUM 8.9 mg/dL (8.5-10.1); CREATININE 3.4 mg/dL (0.55-1.3); MAGNESIUM 2.1 mg/dL (1.8-2.4); POTASSIUM 3.6 mmol/L (3.5-5.1); TOT PROT 7.1 g/dl (6.4-8.2)
[2019-06-02] MEDS ORDERED: SODIUM CHLORIDE 0.9% 500 ML INFUS.BAG IV ONE ×2 (15:36→17:05)
[2019-06-02] MEDS ORDERED: INSULIN REGULAR HUMAN 100 UNITS/ML *VIAL IVPUSH ONE (15:40)
[2019-06-02 16:46] LABS: VENOUS PH 7.28 (7.31-7.41); VENOUS PO2 < 49 mmHg (28-48)
[2019-06-02] MEDS ORDERED: INSULIN (NOVOLOG) ASPART 100 UNITS/ML 10ML VIAL SQ ONE (17:01)
[2019-06-02] MEDS ORDERED: INSULIN REGULAR HUMAN 100 UNITS/ML *VIAL ONE (17:37)
[2019-06-02] MEDS ORDERED: SODIUM CHLORIDE 1,000 ML IV SCH (17:45)
[2019-06-02] MEDS: INSULIN (LEVEMIR) 100 UNITS/ML UNITS SQ SCH ×2 (20:00→22:29)
[2019-06-02] MEDS ORDERED: ALBUTEROL SO4 0.083% IH SOL 2.5 MG/3 ML VIAL.NEB. NEB PRN (20:12)
--- NOTE | 2019-06-02 20:17 | HP ---
CHIEF COMPLAINT: weakness PCP:Dr Von HERNANDEZ HISTORY OF PRESENT ILLNESS: Patient is a 59 year old female with past medical history of IDDM, HTN, CKD, asthma, RA, breast cancer s/p radiation, fibromyalgia, presented to the ED due to generalized weakness and fatigue since yesterday. Patient was visiting her mom who is currently admitted in the hospital, where she just felt weak and fatigued and was advised to go to the ED. At the ED, she was found to have glucose of >800. Patient admits to not being compliant with her insulin and is unsure when she stopped taking her insulin, possibly more than a week, because she was busy taking care of her mother. Last reported A1c was 12. Patient reports fatigue and feels "under the weather", but denies any fevers, chills, headache, dizziness, chest pain, SOB, abdominal pain, diarrhea, urinary symptoms. ER course was notable for: (1)Glu 814 (2)Insulin 10units given (3) Recent Travel:denies PAST MEDICAL HISTORY: IDDM HTN CKD asthma RA breast cancer s/p radiation fibromyalgia PAST SURGICAL HISTORY: Incarcerated Hernia Cholecystectomy appendectomy Hysterectomy Social History: Smoking:denies Alcohol:denies Drugs: denies Allergies shellfish derived Allergy (Verified 06/02/19 12:16) Swelling HOME MEDICATIONS: Home Medications Medication Instructions Recorded Carvedilol 25 mg PO BID 10/22/14 Montelukast Na [Singulair -] 10 mg PO HS 10/22/14 Albuterol 0.083% Nebulizer Page 1 amp NEB DAILY 09/18/17 [Ventolin 0.083% Nebulizer Soln -] Budesonide/Formeterol Fumarate 2 inh PO BID 09/18/17 [SYMBICORT 160/4.5mcg -] Hydroxychloroquine Sulfate 400 mg PO DAILY 09/18/17 [Plaquenil] Pantoprazole Sodium [Protonix] 40 mg PO DAILY 09/18/17 Atorvastatin Ca [Lipitor] 20 mg PO HS 03/01/19 Duloxetine HCl 20 mg PO HS 03/01/19 Acetaminophen [Tylenol .Regular 650 mg PO Q6H PRN #15 tablet 03/05/19 Strength -] Amlodipine Besylate [Norvasc -] 10 mg PO DAILY 03/29/19 Ergocalciferol (Vitamin D2) 50,000 unit PO WEEKLY 03/29/19 [Vitamin D2] Alcohol Antiseptic Pads [Alcohol 1 each HS #1 box 03/31/19 Prep Pad] Insulin (LOG) Aspart [NovoLOG -] See Protocol SQ AC #1 vial 03/31/19 Pen Needle, Diabetic [Unifine 1 unit HS #1 box 03/31/19 Pentips] Pregabalin [Lyrica -] 25 mg PO TID #90 capsule MDD 75mg 03/31/19 Syring-Needl,Disp,Insul,0.3 ml 1 each AC #100 disp.syrin 03/31/19 [Advocate Syringes] Insulin Glargine,Hum.rec.anlog 10 unit SQ HS 04/09/19 [Basaglar Kwikpen U-100] REVIEW OF SYSTEMS CONSTITUTIONAL: generalized weakness, fatigue Absent: fever, chills, diaphoresis, malaise, loss of appetite, weight change HEENT: Absent: rhinorrhea, nasal congestion, throat pain, throat swelling, difficulty swallowing, mouth swelling, ear pain, eye pain, visual changes CARDIOVASCULAR: Absent: chest pain, syncope, palpitations, irregular heart rate, lightheadedness , peripheral edema RESPIRATORY: Absent: cough, shortness of breath, dyspnea with exertion, orthopnea, wheezing, stridor, hemoptysis GASTROINTESTINAL: Absent: abdominal pain, abdominal distension, nausea, vomiting, diarrhea, constipation, melena, hematochezia GENITOURINARY: Absent: dysuria, frequency, urgency, hesitancy, hematuria, flank pain, genital pain MUSCULOSKELETAL: Absent: myalgia, arthralgia, joint swelling, back pain, neck pain SKIN: Absent: rash, itching, pallor HEMATOLOGIC/IMMUNOLOGIC: Absent: easy bleeding, easy bruising, lymphadenopathy, frequent infections ENDOCRINE: Absent: unexplained weight gain, unexplained weight loss, heat intolerance, cold intolerance NEUROLOGIC: Absent: headache, focal weakness or paresthesias, dizziness, unsteady gait, seizure, mental status changes, bladder or bowel incontinence PSYCHIATRIC: Absent: anxiety, depression, suicidal or homicidal ideation, hallucinations. PHYSICAL EXAMINATION Vital Signs - 24 hr 06/02/19 06/02/19 12:13 17:31 Temperature 98.0 F 98 F Pulse Rate 99 H Pulse Rate [ 84 Right] Respiratory 16 16 Rate Blood Pressure 141/68 Blood Pressure 185/83 H [Right Arm] O2 Sat by Pulse 98 98 Oximetry (%) GENERAL: Awake, alert, and fully oriented, in no acute distress. HEAD: Normal with no signs of trauma. EYES: PERRLA, EOMI, sclera anicteric, conjunctiva clear. EARS, NOSE, THROAT: Moist mucous membranes. NECK: Normal range of motion, supple. LUNGS: Breath sounds equal, clear to auscultation bilaterally. HEART: Regular rate and rhythm, normal S1 and S2 without murmur, rub or gallop. ABDOMEN: Soft, nontender, not distended, normoactive bowel sounds. MUSCULOSKELETAL: Normal range of motion at all joints. LOWER EXTREMITIES: 2+ pulses, warm, well-perfused. No peripheral edema. NEUROLOGICAL: Cranial nerves II-XII intact. Normal speech. Normal gait. PSYCHIATRIC: Cooperative. Good eye contact. Appropriate mood and affect. SKIN: Warm, dry, normal turgor. Laboratory Results - last 24 hr 06/02/19 06/02/19 06/02/19 14:30 14:30 14:30 WBC 8.2 RBC 3.89 Hgb 10.5 L Hct 32.0 L MCV 82.1 MCH 26.9 MCHC 32.7 RDW 13.9 Plt Count 243 D MPV 9.0 Absolute Neuts (auto) 6.0 Neutrophils % 73.7 Lymphocytes % 15.9 Monocytes % 7.1 Eosinophils % 2.6 Basophils % 0.7 Nucleated RBC % 0 PT with INR 12.40 INR 1.05 PTT (Actin FS) 30.2 VBG pH POC VBG pCO2 POC VBG pO2 VBG HCO3 VBG O2 Sat (Sanchez) VBG Base Excess Sodium 128 L Potassium 3.6 Chloride 95 L Carbon Dioxide 23 Anion Gap 10 BUN 12.5 Creatinine 3.4 H Est GFR (CKD-EPI)AfAm 16.38 Est GFR (CKD-EPI)NonAf 14.13 POC Glucometer Random Glucose 814 H* Calcium 8.9 Magnesium 2.1 Total Bilirubin 0.3 AST 13 L ALT 15 Alkaline Phosphatase 133 H Creatine Kinase 44 Troponin I 0.02 Total Protein 7.1 Albumin 2.6 L Beta-Hydroxybutyrate 2.3 Influenza A (Rapid) Influenza B (Rapid) RSV Rapid 06/02/19 06/02/19 06/02/19 15:51 17:09 17:45 WBC RBC Hgb Hct MCV MCH MCHC RDW Plt Count MPV Absolute Neuts (auto) Neutrophils % Lymphocytes % Monocytes % Eosinophils % Basophils % Nucleated RBC % PT with INR INR PTT (Actin FS) VBG pH 7.28 L POC VBG pCO2 49.0 POC VBG pO2 < 49 H VBG HCO3 22.1 L VBG O2 Sat (Sanchez) 54 L VBG Base Excess -4.7 L Sodium Potassium Chloride Carbon Dioxide Anion Gap BUN Creatinine Est GFR (CKD-EPI)AfAm Est GFR (CKD-EPI)NonAf POC Glucometer > 600 Random Glucose Calcium Magnesium Total Bilirubin AST ALT Alkaline Phosphatase Creatine Kinase Troponin I Total Protein Albumin Beta-Hydroxybutyrate Influenza A (Rapid) Negative Influenza B (Rapid) Negative RSV Rapid 06/02/19 06/02/19 17:45 18:33 WBC RBC Hgb Hct MCV MCH MCHC RDW Plt Count MPV Absolute Neuts (auto) Neutrophils % Lymphocytes % Monocytes % Eosinophils % Basophils % Nucleated RBC % PT with INR INR PTT (Actin FS) VBG pH POC VBG pCO2 POC VBG pO2 VBG HCO3 VBG O2 Sat (Sanchez) VBG Base Excess Sodium Potassium Chloride Carbon Dioxide Anion Gap BUN Creatinine Est GFR (CKD-EPI)AfAm Est GFR (CKD-EPI)NonAf POC Glucometer 568 Random Glucose Calcium Magnesium Total Bilirubin AST ALT Alkaline Phosphatase Creatine Kinase Troponin I Total Protein Albumin Beta-Hydroxybutyrate Influenza A (Rapid) Influenza B (Rapid) RSV Rapid Negative ASSESSMENT/PLAN: Patient is a 59 year old female with past medical history of IDDM, HTN, CKD, asthma, RA, breast cancer s/p radiation, fibromyalgia, presented to the ED due to generalized weakness and fatigue since yesterday. At the ED was found to have glucose of 814. #Hyperglycemia, IDDM -likely 2/2 medication non-adherence -glu 813, now improving, no evidence of DKA or HHS -[id number] u given at the ED -Will resume Insulin glargine 25u BID -Insulin sliding scale implemented -BGM ACHs -A1c -Would need referral to cabinetmaker apprentice upon discharge #HTN -Continue home meds #CKD -stable, will continue to monitor -avoid nephrotoxic agents such as NSAIDs, aminoglycosides, contrast #ASthma -Continue home meds symbicort, singulair -albuterol nebs prn #FEN -IV NS @100c/hr -Electrolytes wnl, routine bmp monitoring -Diabetic/sodium restricted diet #Prophylaxis -Heparin 5000u sq tid #Disposition -full code -obs, likely for dc in 24 hours Visit type - Emergency Visit Emergency Visit: Yes ED Registration Date: 06/02/19 Care time: The patient presented to the Emergency Department on the above date and was hospitalized for further evaluation of their emergent condition. - New Patient This patient is new to me today: Yes Date on this admission: 06/02/19 - Critical Care Critical Care patient: No ATTENDING PHYSICIAN STATEMENT I saw and evaluated the patient. I reviewed the resident's note and discussed the case with the resident. I agree with the resident's findings and plan as documented. SUBJECTIVE: OBJECTIVE: ASSESSMENT AND PLAN:
--- NOTE | 2019-06-02 20:19 | PN ---
Teaching Attending Note Name of Resident: Silvia Lopez ATTENDING PHYSICIAN STATEMENT I saw and evaluated the patient. I reviewed the resident's note and discussed the case with the resident. I agree with the resident's findings and plan as documented. SUBJECTIVE: Patient seen and examined at bedside. Endorses not using insulin for 1-2 weeks due to being busy taking care of her elderly mother, has history of uncontrolled IDDM. Not acutely in DKA. OBJECTIVE: GENERAL: The patient is awake, alert, and fully oriented, in no acute distress, morbidly obese, sitting upright in stretcher HEAD: Normal with no signs of trauma. EYES: PERRL, extraocular movements intact, conjunctiva clear. ENT: Ears normal, nares patent, dry mucus membranes, poor dentition NECK: Trachea midline, full range of motion LUNGS: Clear to auscultation bilaterally, no wheezes HEART: Regular rate and rhythm, no murmur ABDOMEN: Soft, obese, nontender, nondistended, normoactive bowel sounds EXTREMITIES: Warm, well-perfused, no edema. no LE ulcers appreciated, good pedal pulses NEUROLOGICAL: Cranial nerves II through XII grossly intact. Normal speech. No tremors noted. PSYCH: Normal mood, normal affect. SKIN: Warm, dry, normal turgor Vital Signs - 24 hr 06/02/19 06/02/19 12:13 17:31 Temperature 98.0 F 98 F Pulse Rate 99 H Pulse Rate [ 84 Right] Respiratory 16 16 Rate Blood Pressure 141/68 Blood Pressure 185/83 H [Right Arm] O2 Sat by Pulse 98 98 Oximetry (%) Laboratory Results - last 24 hr 06/02/19 06/02/19 06/02/19 14:30 14:30 14:30 WBC 8.2 RBC 3.89 Hgb 10.5 L Hct 32.0 L MCV 82.1 MCH 26.9 MCHC 32.7 RDW 13.9 Plt Count 243 D MPV 9.0 Absolute Neuts (auto) 6.0 Neutrophils % 73.7 Lymphocytes % 15.9 Monocytes % 7.1 Eosinophils % 2.6 Basophils % 0.7 Nucleated RBC % 0 PT with INR 12.40 INR 1.05 PTT (Actin FS) 30.2 VBG pH POC VBG pCO2 POC VBG pO2 VBG HCO3 VBG O2 Sat (Sanchez) VBG Base Excess Sodium 128 L Potassium 3.6 Chloride 95 L Carbon Dioxide 23 Anion Gap 10 BUN 12.5 Creatinine 3.4 H Est GFR (CKD-EPI)AfAm 16.38 Est GFR (CKD-EPI)NonAf 14.13 POC Glucometer Random Glucose 814 H* Calcium 8.9 Magnesium 2.1 Total Bilirubin 0.3 AST 13 L ALT 15 Alkaline Phosphatase 133 H Creatine Kinase 44 Troponin I 0.02 Total Protein 7.1 Albumin 2.6 L Beta-Hydroxybutyrate 2.3 Influenza A (Rapid) Influenza B (Rapid) RSV Rapid 06/02/19 06/02/19 06/02/19 15:51 17:09 17:45 WBC RBC Hgb Hct MCV MCH MCHC RDW Plt Count MPV Absolute Neuts (auto) Neutrophils % Lymphocytes % Monocytes % Eosinophils % Basophils % Nucleated RBC % PT with INR INR PTT (Actin FS) VBG pH 7.28 L POC VBG pCO2 49.0 POC VBG pO2 < 49 H VBG HCO3 22.1 L VBG O2 Sat (Sanchez) 54 L VBG Base Excess -4.7 L Sodium Potassium Chloride Carbon Dioxide Anion Gap BUN Creatinine Est GFR (CKD-EPI)AfAm Est GFR (CKD-EPI)NonAf POC Glucometer > 600 Random Glucose Calcium Magnesium Total Bilirubin AST ALT Alkaline Phosphatase Creatine Kinase Troponin I Total Protein Albumin Beta-Hydroxybutyrate Influenza A (Rapid) Negative Influenza B (Rapid) Negative RSV Rapid 06/02/19 06/02/19 17:45 18:33 WBC RBC Hgb Hct MCV MCH MCHC RDW Plt Count MPV Absolute Neuts (auto) Neutrophils % Lymphocytes % Monocytes % Eosinophils % Basophils % Nucleated RBC % PT with INR INR PTT (Actin FS) VBG pH POC VBG pCO2 POC VBG pO2 VBG HCO3 VBG O2 Sat (Sanchez) VBG Base Excess Sodium Potassium Chloride Carbon Dioxide Anion Gap BUN Creatinine Est GFR (CKD-EPI)AfAm Est GFR (CKD-EPI)NonAf POC Glucometer 568 Random Glucose Calcium Magnesium Total Bilirubin AST ALT Alkaline Phosphatase Creatine Kinase Troponin I Total Protein Albumin Beta-Hydroxybutyrate Influenza A (Rapid) Influenza B (Rapid) RSV Rapid Negative Home Medications Medication Instructions Recorded Carvedilol 25 mg PO BID 10/22/14 Montelukast Na [Singulair -] 10 mg PO HS 10/22/14 Albuterol 0.083% Nebulizer Page 1 amp NEB DAILY 09/18/17 [Ventolin 0.083% Nebulizer Soln -] Budesonide/Formeterol Fumarate 2 inh PO BID 09/18/17 [SYMBICORT 160/4.5mcg -] Hydroxychloroquine Sulfate 400 mg PO DAILY 09/18/17 [Plaquenil] Pantoprazole Sodium [Protonix] 40 mg PO DAILY 09/18/17 Atorvastatin Ca [Lipitor] 20 mg PO HS 03/01/19 Duloxetine HCl 20 mg PO HS 03/01/19 Acetaminophen [Tylenol .Regular 650 mg PO Q6H PRN #15 tablet 03/05/19 Strength -] Amlodipine Besylate [Norvasc -] 10 mg PO DAILY 03/29/19 Ergocalciferol (Vitamin D2) 50,000 unit PO WEEKLY 03/29/19 [Vitamin D2] Alcohol Antiseptic Pads [Alcohol 1 each HS #1 box 03/31/19 Prep Pad] Insulin (LOG) Aspart [NovoLOG -] See Protocol SQ AC #1 vial 03/31/19 Pen Needle, Diabetic [Unifine 1 unit HS #1 box 03/31/19 Pentips] Pregabalin [Lyrica -] 25 mg PO TID #90 capsule MDD 75mg 03/31/19 Syring-Needl,Disp,Insul,0.3 ml 1 each AC #100 disp.syrin 03/31/19 [Advocate Syringes] Insulin Glargine,Hum.rec.anlog 10 unit SQ HS 04/09/19 [Basaglar Kwikpen U-100] Current Medications Generic Name Dose Route Start Last Admin Trade Name Freq PRN Reason Stop Dose Admin Albuterol Sulfate 1 amp 06/02/19 20:12 Ventolin 0.083% Nebulizer Soln - NEB Q4H PRN SHORT OF BREATH/WHEEZING Amlodipine Besylate 10 mg 06/03/19 10:00 Norvasc - PO DAILY [facility] Atorvastatin Calcium 20 mg 06/02/19 22:00 Lipitor - PO HS [facility] Budesonide/Formoterol Fumarate 2 puff 06/02/19 22:00 Symbicort 160/4.5mcg - IH BID [facility] Carvedilol 25 mg 06/02/19 22:00 Coreg - PO BID [facility] Duloxetine HCl 20 mg 06/02/19 22:00 Cymbalta - PO HS VINCE Heparin Sodium (Porcine) 5,000 unit 06/02/19 22:00 Heparin - SQ TID [facility] Sodium Chloride 1,000 mls @ 100 mls/hr 06/02/19 17:45 06/02/19 17:52 Normal Saline - IV 100 mls/hr ASDIR VINCE Administration Insulin Aspart 1 vial 06/02/19 22:00 Novolog Vial Sliding Scale - SQ ACHS [facility] Protocol Insulin Detemir 25 units 06/02/19 17:38 06/02/19 20:00 Levemir Vial SQ 25 unit BID@0700,2200 [facility] Administration Montelukast Sodium 10 mg 06/02/19 22:00 Singulair - PO HS [facility] Pantoprazole Sodium 40 mg 06/03/19 10:00 Protonix - PO DAILY [facility] Pregabalin 25 mg 06/02/19 22:00 Lyrica - PO TID VINCE A/P: 58 F h/o morbid obesity, uncontrolled IDDM2, HTN, CKD 4, asthma, COPD not on O2 , RA, breast cancer s/p radiation, fibromyalgia, incarcerated hernia s/p repair admitted for uncontrolled hyperglycemia. Uncontrolled hyperglycemia 2/2 insulin non-compliance admits to not using insulin x1-2 weeks due to caring for her mother and "being busy" restart Detemir 25u BID, with premeal insulin at 10-15u TID, supplement with ISS reinforce compliance, explained to patient at length risks of not using her insulin No signs of DKA, normal AG, continue IVF and discharge when F/S <300. [place] on CKD 4 2/2 excessive diuresis from hyperglycemia IVF, correct glucose, repeat CRE avoid nephrotoxins HTN restart home meds Asthma not in acute exacerbation, mild hypercapnea on VBG cont. home meds Fibromyalgia cont. home meds GERD cont. PPI RA cont. home meds HLD continue statin DVT Ppx SC heparin Med Surg dispo waiting for approval for home services due to weakness
[2019-06-02 20:42] LABS: EPI CELLS 4.6 /HPF (0-5/HPF); HYALINE CASTS 1 /lpf (0-8); URINE APPEARANCE CLEAR; URINE BACTERIA 215.1 /hpf (NEGATIVE); URINE BILIRUBIN NEGATIVE (NEGATIVE); URINE COLOR YELLOW; URINE GLUCOSE (UA) 3+ (NEGATIVE); URINE KETONE NEGATIVE (NEGATIVE); URINE LEUK ESTERASE NEGATIVE (NEGATIVE); URINE NITRITE NEGATIVE (NEGATIVE); URINE PROTEIN 3+ (NEGATIVE); URINE RBC 8 /hpf (0-4); URINE UROBILINOGEN 0.2 mg/dL (0.2-1.0)
[2019-06-02] MEDS ORDERED: ATORVASTATIN CA 20 MG TABLET (FP) ONE (21:32)
[2019-06-02] MEDS ORDERED: PREGABALIN 25 MG CAPSULE ONE (21:32)
[2019-06-02] MEDS ORDERED: INSULIN (NOVOLOG) ASPART 100 UNITS/ML 10ML VIAL ONE (21:32)
[2019-06-02] MEDS ORDERED: CARVEDILOL 12.5 MG TABLET (FP) ONE (21:32)
[2019-06-02] MEDS ORDERED: MONTELUKAST NA 10 MG TABLET ONE (21:33)
[2019-06-02] MEDS ORDERED: HEPARIN NA (PORCINE) 5,000 UNITS/ML 1ML VIAL ONE (21:33)
[2019-06-02] MEDS: CARVEDILOL 25 MG TABLET (FP) PO SCH (22:28)
[2019-06-02] MEDS: DULoxetine HCL 20 MG CAPSULE.DR PO SCH (22:28)
[2019-06-02] MEDS: MONTELUKAST NA 10 MG TABLET PO SCH (22:29)
[2019-06-02] MEDS: HEPARIN NA (PORCINE) 5,000 UNITS/ML 1ML VIAL SQ SCH (22:29)
[2019-06-02] MEDS: INSULIN SLIDING SCALE (NOVOLOG) 1 VIAL SQ SCH (22:29)
[2019-06-02] MEDS: PREGABALIN 25 MG CAPSULE PO SCH (22:29)
[2019-06-02] MEDS: BUDESONIDE/FORMETEROL FUMARATE 160/4.5 mcg INHALER IH SCH (22:29)
[2019-06-02] MEDS: ATORVASTATIN CA 20 MG TABLET (FP) PO SCH (22:29)
[2019-06-03] MEDS ORDERED: PREGABALIN 25 MG CAPSULE ONE (07:01)
[2019-06-03] MEDS ORDERED: HEPARIN NA (PORCINE) 5,000 UNITS/ML 1ML VIAL ONE (07:01)
[2019-06-03] MEDS: HEPARIN NA (PORCINE) 5,000 UNITS/ML 1ML VIAL SQ SCH ×3 (07:11→21:18)
[2019-06-03] MEDS: INSULIN (LEVEMIR) 100 UNITS/ML UNITS SQ SCH ×2 (07:11→21:17)
[2019-06-03] MEDS: PREGABALIN 25 MG CAPSULE PO SCH ×3 (07:11→21:17)
[2019-06-03] MEDS: INSULIN SLIDING SCALE (NOVOLOG) 1 VIAL SQ SCH ×4 (07:13→21:18)
[2019-06-03 08:06] LABS: BASO % 0.8 % (0-2.0); EOS % 3.6 % (0-4.5); HEMATOCRIT 26.2 % (32.4-45.2); LYMPH % 15.7 % (8-40); MCH 26.8 pg (25.7-33.7); MCHC 34.5 g/dl (32.0-36.0); MEAN CELL VOLUME 77.6 fl (80-96); MEAN PLT VOLUME 8.8 fl (7.5-11.1); MONO % 6.6 % (3.8-10.2); NEUT % 73.3 % (42.8-82.8); PLATELET COUNT 212 K/MM3 (134-434); RBC 3.37 M/mm3 (3.60-5.2); RDW 13.6 % (11.6-15.6); WHITE BLOOD COUNT 8.3 K/mm3 (4.0-10.0)
[2019-06-03 08:27] LABS: ALBUMIN 2.1 g/dl (3.4-5.0); BILIRUBIN,TOTAL 0.2 mg/dL (0.2-1); BLOOD UREA NITROGEN 10.9 mg/dL (7-18); CALCIUM 8.4 mg/dL (8.5-10.1); CREATININE 2.7 mg/dL (0.55-1.3); MAGNESIUM 1.9 mg/dL (1.8-2.4); PHOSPHOROUS 2.8 mg/dL (2.5-4.9); POTASSIUM 3.2 mmol/L (3.5-5.1); TOT PROT 5.8 g/dl (6.4-8.2)
[2019-06-03] MEDS ORDERED: ENOXAPARIN NA (PORCINE) 40 MG/0.4 ML DISP.SYRIN SQ SCH (10:00)
[2019-06-03] MEDS ORDERED: PANTOPRAZOLE 40 MG TABLET PO SCH (10:00)
[2019-06-03] MEDS ORDERED: amLODIPine BESYLATE 10 MG TABLET (FP) PO SCH (10:00)
[2019-06-03] MEDS: CARVEDILOL 25 MG TABLET (FP) PO SCH ×2 (10:55→21:17)
[2019-06-03] MEDS: BUDESONIDE/FORMETEROL FUMARATE 160/4.5 mcg INHALER IH SCH ×2 (10:55→21:18)
[2019-06-03] MEDS ORDERED: POTASSIUM CHLORIDE TABS 20 MEQ TABLET.ER (FP) PO ONE ×2 (11:20→17:30)
--- NOTE | 2019-06-03 15:14 | EKG ---
Test Reason : Blood Pressure : / mmHG Vent. Rate : 084 BPM Atrial Rate : 084 BPM P-R Int : 208 ms QRS Dur : 088 ms QT Int : 394 ms P-R-T Axes : 053 -13 041 degrees QTc Int : 465 ms NORMAL SINUS RHYTHM VOLTAGE CRITERIA FOR LEFT VENTRICULAR HYPERTROPHY ABNORMAL ECG WHEN COMPARED WITH ECG OF 28-MAR-2019 01:17, NE INTERVAL HAS DECREASED Confirmed by PAULO SANTOS MD ([id number]) on 06/03/2019 3:14:24 PM Referred By: Confirmed By:PAULO SANTOS MD
[2019-06-03] MEDS ORDERED: INSULIN (NOVOLOG) ASPART 100 UNITS/ML 10ML VIAL ONE (17:29)
[2019-06-03 18:27] VITALS: BMI 42.3
--- NOTE | 2019-06-03 19:26 | PN ---
Physical Exam: SUBJECTIVE: Patient seen and examined at bedside. Having loose bowel movements, not secretory, not ready for discharge due to BM and overall weakness, will cont. to monitor, FS markedly improved, VS otherwise stable. OBJECTIVE: GENERAL: ambulating around unit, semi-formed stool coming down leg. HEAD: Normal with no signs of trauma. EYES: PERRL, extraocular movements intact, conjunctiva clear. ENT: Ears normal, nares patent, dry mucus membranes, poor dentition NECK: Trachea midline, full range of motion LUNGS: Clear to auscultation bilaterally, no wheezes HEART: Regular rate and rhythm, no murmur ABDOMEN: Soft, obese, nontender, nondistended, normoactive bowel sounds NEUROLOGICAL: Cranial nerves II through XII grossly intact. Normal speech. No tremors noted. PSYCH: Normal mood, normal affect. Vital Signs - 24 hr 06/02/19 06/03/19 06/03/19 20:00 05:18 06:58 Temperature 97.9 F 98.1 F Pulse Rate 58 L Pulse Rate [ 72 68 Right] Respiratory 18 20 18 Rate Blood Pressure 127/56 L Blood Pressure 147/67 125/58 L [Right Arm] O2 Sat by Pulse 97 97 Oximetry (%) 06/03/19 06/03/19 06/03/19 09:00 10:45 14:00 Temperature 98.3 F 98.1 F Pulse Rate 66 61 Pulse Rate [ Right] Respiratory 16 17 15 Rate Blood Pressure 99/56 L 99/56 L Blood Pressure [Right Arm] O2 Sat by Pulse 97 Oximetry (%) 06/03/19 06/03/19 06/03/19 15:19 17:59 18:12 Temperature 97.8 F 98.1 F Pulse Rate 54 L 56 L Pulse Rate [ Right] Respiratory 16 20 Rate Blood Pressure 130/49 L 135/67 Blood Pressure [Right Arm] O2 Sat by Pulse 95 Oximetry (%) Laboratory Results - last 24 hr 06/02/19 06/02/19 06/03/19 18:18 22:23 05:55 WBC 8.3 RBC 3.37 L Hgb 9.0 L Hct 26.2 L D MCV 77.6 L MCH 26.8 MCHC 34.5 RDW 13.6 Plt Count 212 MPV 8.8 Absolute Neuts (auto) 6.0 Neutrophils % 73.3 Lymphocytes % 15.7 Monocytes % 6.6 Eosinophils % 3.6 Basophils % 0.8 Nucleated RBC % 0 Sodium Potassium Chloride Carbon Dioxide Anion Gap BUN Creatinine Est GFR (CKD-EPI)AfAm Est GFR (CKD-EPI)NonAf POC Glucometer 328 Random Glucose Hemoglobin A1c % Calcium Phosphorus Magnesium Total Bilirubin AST ALT Alkaline Phosphatase Total Protein Albumin TSH Urine Color Yellow Urine Appearance Clear Urine pH 6.0 Ur Specific Pease 1.018 Urine Protein 3+ H Urine Glucose (UA) 3+ H Urine Ketones Negative Urine Blood 1+ H Urine Nitrite Negative Urine Bilirubin Negative Urine Urobilinogen 0.2 Ur Leukocyte Esterase Negative Urine RBC (Auto) 8 Urine Casts (Auto) 1 U Epithel Cells (Auto) 4.6 Urine Bacteria (Auto) 215.1 06/03/19 06/03/19 06/03/19 05:55 05:55 06:48 WBC RBC Hgb Hct MCV MCH MCHC RDW Plt Count MPV Absolute Neuts (auto) Neutrophils % Lymphocytes % Monocytes % Eosinophils % Basophils % Nucleated RBC % Sodium 139 Potassium 3.2 L Chloride 110 H Carbon Dioxide 21 Anion Gap 9 BUN 10.9 Creatinine 2.7 H Est GFR (CKD-EPI)AfAm 21.64 Est GFR (CKD-EPI)NonAf 18.67 POC Glucometer 198 Random Glucose 183 H Hemoglobin A1c % 12.6 H Calcium 8.4 L Phosphorus 2.8 Magnesium 1.9 Total Bilirubin 0.2 AST 13 L ALT 13 Alkaline Phosphatase 102 Total Protein 5.8 L Albumin 2.1 L TSH 0.86 Urine Color Urine Appearance Urine pH Ur Specific [place] Urine Protein Urine Glucose (UA) Urine Ketones Urine Blood Urine Nitrite Urine Bilirubin Urine Urobilinogen Ur Leukocyte Esterase Urine RBC (Auto) Urine Casts (Auto) U Epithel Cells (Auto) Urine Bacteria (Auto) 06/03/19 06/03/19 12:07 17:09 WBC RBC Hgb Hct MCV MCH MCHC RDW Plt Count MPV Absolute Neuts (auto) Neutrophils % Lymphocytes % Monocytes % Eosinophils % Basophils % Nucleated RBC % Sodium Potassium Chloride Carbon Dioxide Anion Gap BUN Creatinine Est GFR (CKD-EPI)AfAm Est GFR (CKD-EPI)NonAf POC Glucometer 136 211 Random Glucose Hemoglobin A1c % Calcium Phosphorus Magnesium Total Bilirubin AST ALT Alkaline Phosphatase Total Protein Albumin TSH Urine Color Urine Appearance Urine pH Ur Specific Pease Urine Protein Urine Glucose (UA) Urine Ketones Urine Blood Urine Nitrite Urine Bilirubin Urine Urobilinogen Ur Leukocyte Esterase Urine RBC (Auto) Urine Casts (Auto) U Epithel Cells (Auto) Urine Bacteria (Auto) Current Medications Generic Name Dose Route Start Last Admin Trade Name Maura PRN Reason Stop Dose Admin Albuterol Sulfate 1 amp 06/02/19 20:12 Ventolin 0.083% Nebulizer Soln - NEB Q4H PRN SHORT OF BREATH/WHEEZING Amlodipine Besylate 10 mg 06/03/19 10:00 06/03/19 10:55 Norvasc - PO 10 mg DAILY VINCE Administration Atorvastatin Calcium 20 mg 06/02/19 22:00 06/02/19 22:29 Lipitor - PO 20 mg HS [facility] Administration Budesonide/Formoterol Fumarate 2 puff 06/02/19 22:00 06/03/19 10:55 Symbicort 160/4.5mcg - IH 2 puff BID VINCE Administration Carvedilol 25 mg 06/02/19 22:00 06/03/19 10:55 Coreg - PO 25 mg BID VINCE Administration Duloxetine HCl 20 mg 06/02/19 22:00 06/02/19 22:28 Cymbalta - PO 20 mg HS VINCE Administration Heparin Sodium (Porcine) 5,000 unit 06/02/19 22:00 06/03/19 17:41 Heparin - SQ Not Given TID [facility] Insulin Aspart 1 vial 06/02/19 22:00 06/03/19 17:44 Novolog Vial Sliding Scale - SQ 4 unit ACHS VINCE Administration Protocol Insulin Detemir 25 units 06/02/19 17:38 06/03/19 07:11 Levemir Vial SQ 25 unit BID@0700,2200 [facility] Administration Montelukast Sodium 10 mg 06/02/19 22:00 06/02/19 22:29 Singulair - PO 10 mg HS VINCE Administration Pregabalin 25 mg 06/02/19 22:00 06/03/19 17:43 Lyrica - PO 25 mg TID VINCE Administration Home Medications Medication Instructions Recorded Carvedilol 25 mg PO BID 10/22/14 Montelukast Na [Singulair -] 10 mg PO HS 10/22/14 Albuterol 0.083% Nebulizer Page 1 amp NEB DAILY 09/18/17 [Ventolin 0.083% Nebulizer Soln -] Budesonide/Formeterol Fumarate 2 inh PO BID 09/18/17 [SYMBICORT 160/4.5mcg -] Hydroxychloroquine Sulfate 400 mg PO DAILY 09/18/17 [Plaquenil] Pantoprazole Sodium [Protonix] 40 mg PO DAILY 09/18/17 Atorvastatin Ca [Lipitor] 20 mg PO HS 03/01/19 Duloxetine HCl 20 mg PO HS 03/01/19 Acetaminophen [Tylenol .Regular 650 mg PO Q6H PRN #15 tablet 03/05/19 Strength -] Amlodipine Besylate [Norvasc -] 10 mg PO DAILY 03/29/19 Ergocalciferol (Vitamin D2) 50,000 unit PO WEEKLY 03/29/19 [Vitamin D2] Alcohol Antiseptic Pads [Alcohol 1 each HS #1 box 03/31/19 Prep Pad] Insulin (LOG) Aspart [NovoLOG -] See Protocol SQ AC #1 vial 03/31/19 Pen Needle, Diabetic [Unifine 1 unit HS #1 box 03/31/19 Pentips] Pregabalin [Lyrica -] 25 mg PO TID #90 capsule MDD 75mg 03/31/19 Syring-Needl,Disp,Insul,0.3 ml 1 each AC #100 disp.syrin 03/31/19 [Advocate Syringes] Insulin Glargine,Hum.rec.anlog 10 unit SQ HS 04/09/19 [Basaglar Kwikpen U-100] A/P: 58 F h/o morbid obesity, uncontrolled IDDM2, HTN, CKD 4, asthma, COPD not on O2 , RA, breast cancer s/p radiation, fibromyalgia, incarcerated hernia s/p repair admitted for uncontrolled hyperglycemia. Uncontrolled hyperglycemia 2/2 insulin non-compliance improved FS now <200 reinforced insulin use and using it daily will follow with PCP as outpatient once ready for DC Semi-formed BM will continue to monitor, send C. diff if becomes diarrhea replace electrolytes [place] on CKD 4 2/2 excessive diuresis from hyperglycemia improved, CRE trending down strict avoidance of nephrotoxins HTN 1-2 episodes of hypotension during day, ?d/t bowel lsoses decrease Norvasc to 5mg, cont. Coreg Asthma not in acute exacerbation, mild hypercapnea on VBG cont. home meds Fibromyalgia cont. home meds GERD DC PPI in view of loose stool RA cont. home meds HLD continue statin DVT Ppx SC heparin Med Surg dispo waiting for approval for home services due to weakness Visit type - Emergency Visit Emergency Visit: Yes ED Registration Date: 06/02/19 Care time: The patient presented to the Emergency Department on the above date and was hospitalized for further evaluation of their emergent condition. - New Patient This patient is new to me today: No - Critical Care Critical Care patient: No - Discharge Referral Referred to [facility] No
[2019-06-03] MEDS: ATORVASTATIN CA 20 MG TABLET (FP) PO SCH (21:17)
[2019-06-03] MEDS: MONTELUKAST NA 10 MG TABLET PO SCH (21:17)
[2019-06-04] MEDS: DULoxetine HCL 20 MG CAPSULE.DR PO SCH (05:56)
[2019-06-04] MEDS: PREGABALIN 25 MG CAPSULE PO SCH ×2 (05:56→15:47)
[2019-06-04] MEDS: HEPARIN NA (PORCINE) 5,000 UNITS/ML 1ML VIAL SQ SCH ×2 (05:57→14:42)
[2019-06-04] MEDS: INSULIN SLIDING SCALE (NOVOLOG) 1 VIAL SQ SCH ×3 (06:12→18:07)
[2019-06-04] MEDS: INSULIN (LEVEMIR) 100 UNITS/ML UNITS SQ SCH (06:12)
[2019-06-04 07:22] LABS: BASO % 0.9 % (0-2.0); EOS % 3.5 % (0-4.5); HEMATOCRIT 30.8 % (32.4-45.2); HEMOGLOBIN 10.4 GM/dL (10.7-15.3); LYMPH % 20.2 % (8-40); MCH 26.7 pg (25.7-33.7); MCHC 33.7 g/dl (32.0-36.0); MEAN CELL VOLUME 79.2 fl (80-96); MEAN PLT VOLUME 8.8 fl (7.5-11.1); MONO % 6.8 % (3.8-10.2); NEUT % 68.6 % (42.8-82.8); PLATELET COUNT 233 K/MM3 (134-434); RBC 3.89 M/mm3 (3.60-5.2); RDW 14.2 % (11.6-15.6); WHITE BLOOD COUNT 8.4 K/mm3 (4.0-10.0)
[2019-06-04 07:38] LABS: BLOOD UREA NITROGEN 12.6 mg/dL (7-18); CALCIUM 9.2 mg/dL (8.5-10.1); CREATININE 3.1 mg/dL (0.55-1.3); PHOSPHOROUS 3.1 mg/dL (2.5-4.9); POTASSIUM 3.3 mmol/L (3.5-5.1)
[2019-06-04] MEDS ORDERED: ACETAMINOPHEN 325 MG TABLET (FP) PO PRN (08:41)
[2019-06-04] MEDS ORDERED: FLUCONAZOLE 150 MG TABLET PO ONE (09:00)
[2019-06-04] MEDS ORDERED: amLODIPine BESYLATE 5 MG TABLET (FP) PO SCH (10:00)
[2019-06-04] MEDS: CARVEDILOL 25 MG TABLET (FP) PO SCH (10:53)
[2019-06-04] MEDS: BUDESONIDE/FORMETEROL FUMARATE 160/4.5 mcg INHALER IH SCH (11:21)
[2019-06-04 17:59] VITALS: BP 117/50; PULSE 56; TEMP 98.2
--- NOTE | 2019-06-05 11:48 | DS ---
Physical Exam: SUBJECTIVE: Patient seen and examined at bedside. Endorses she feels better and wants to go home, she will call her son to pick her up. OBJECTIVE: PHYSICAL EXAM GENERAL: The patient is awake, alert, and fully oriented, in no acute distress. HEAD: Normal with no signs of trauma. EYES: PERRL, extraocular movements intact, sclera anicteric, conjunctiva clear. ENT: Ears normal, nares patent, oropharynx clear without exudates, moist mucous membranes. Poor dentition. NECK: Trachea midline, full range of motion, supple. LUNGS: Breath sounds equal, clear to auscultation bilaterally, no wheezes, no crackles, no accessory muscle use. HEART: Regular rate and rhythm, S1, S2 without murmur, rub or gallop. ABDOMEN: Soft, nontender, obese, normoactive bowel sounds, no guarding, no rebound, no hepatosplenomegaly, no masses. EXTREMITIES: chronic venous changes, good pedal pulses, no ulcers in the LE appreciated, no LE edema, no calf tenderness NEUROLOGICAL: Cranial nerves II through XII grossly intact. Normal speech, ambulates w/ rollator PSYCH: Normal mood, normal affect. SKIN: Warm, dry, normal turgor, no rashes or lesions noted. Vital Signs Period Temp Pulse Resp BP Sys/Ronquillo Pulse Ox Last 24 Hr 97.8 F-98.2 F 56-60 18-18 117-138/50-52 96 Vital Signs - 24 hr 06/04/19 06/04/19 06/04/19 13:41 14:00 17:53 Temperature 97.8 F 98.2 F Pulse Rate 60 56 L Respiratory 18 18 18 Rate Blood Pressure 138/52 L 117/50 L O2 Sat by Pulse 96 Oximetry (%) Laboratory Results - last 24 hr 06/04/19 06/04/19 12:24 18:04 POC Glucometer 296 291 Laboratory Tests 06/02/19 06/02/19 06/02/19 14:30 14:30 14:30 WBC 8.2 RBC 3.89 Hgb 10.5 L Hct 32.0 L MCV 82.1 MCH 26.9 MCHC 32.7 RDW 13.9 Plt Count 243 D MPV 9.0 Absolute Neuts (auto) 6.0 Neutrophils % 73.7 Lymphocytes % 15.9 Monocytes % 7.1 Eosinophils % 2.6 Basophils % 0.7 Nucleated RBC % 0 PT with INR 12.40 INR 1.05 PTT (Actin FS) 30.2 VBG pH POC VBG pCO2 POC VBG pO2 VBG HCO3 VBG O2 Sat (Sanchez) VBG Base Excess Sodium 128 L Potassium 3.6 Chloride 95 L Carbon Dioxide 23 Anion Gap 10 BUN 12.5 Creatinine 3.4 H Est GFR (CKD-EPI)AfAm 16.38 Est GFR (CKD-EPI)NonAf 14.13 POC Glucometer Random Glucose 814 H* Hemoglobin A1c % Calcium 8.9 Phosphorus Magnesium 2.1 Total Bilirubin 0.3 AST 13 L ALT 15 Alkaline Phosphatase 133 H Creatine Kinase 44 Troponin I 0.02 Total Protein 7.1 Albumin 2.6 L Beta-Hydroxybutyrate 2.3 TSH Urine Color Urine Appearance Urine pH Ur Specific [place] Urine Protein Urine Glucose (UA) Urine Ketones Urine Blood Urine Nitrite Urine Bilirubin Urine Urobilinogen Ur Leukocyte Esterase Urine RBC (Auto) Urine Casts (Auto) U Epithel Cells (Auto) Urine Bacteria (Auto) Influenza A (Rapid) Influenza B (Rapid) RSV Rapid 06/02/19 06/02/19 06/02/19 15:51 17:09 17:45 WBC RBC Hgb Hct MCV MCH MCHC RDW Plt Count MPV Absolute Neuts (auto) Neutrophils % Lymphocytes % Monocytes % Eosinophils % Basophils % Nucleated RBC % PT with INR INR PTT (Actin FS) VBG pH 7.28 L POC VBG pCO2 49.0 POC VBG pO2 < 49 H VBG HCO3 22.1 L VBG O2 Sat (Sanchez) 54 L VBG Base Excess -4.7 L Sodium Potassium Chloride Carbon Dioxide Anion Gap BUN Creatinine Est GFR (CKD-EPI)AfAm Est GFR (CKD-EPI)NonAf POC Glucometer > 600 Random Glucose Hemoglobin A1c % Calcium Phosphorus Magnesium Total Bilirubin AST ALT Alkaline Phosphatase Creatine Kinase Troponin I Total Protein Albumin Beta-Hydroxybutyrate TSH Urine Color Urine Appearance Urine pH Ur Specific [place] Urine Protein Urine Glucose (UA) Urine Ketones Urine Blood Urine Nitrite Urine Bilirubin Urine Urobilinogen Ur Leukocyte Esterase Urine RBC (Auto) Urine Casts (Auto) U Epithel Cells (Auto) Urine Bacteria (Auto) Influenza A (Rapid) Negative Influenza B (Rapid) Negative RSV Rapid 06/02/19 06/02/19 06/02/19 17:45 18:18 18:33 WBC RBC Hgb Hct MCV MCH MCHC RDW Plt Count MPV Absolute Neuts (auto) Neutrophils % Lymphocytes % Monocytes % Eosinophils % Basophils % Nucleated RBC % PT with INR INR PTT (Actin FS) VBG pH POC VBG pCO2 POC VBG pO2 VBG HCO3 VBG O2 Sat (Sanchez) VBG Base Excess Sodium Potassium Chloride Carbon Dioxide Anion Gap BUN Creatinine Est GFR (CKD-EPI)AfAm Est GFR (CKD-EPI)NonAf POC Glucometer 568 Random Glucose Hemoglobin A1c % Calcium Phosphorus Magnesium Total Bilirubin AST ALT Alkaline Phosphatase Creatine Kinase Troponin I Total Protein Albumin Beta-Hydroxybutyrate TSH Urine Color Yellow Urine Appearance Clear Urine pH 6.0 Ur Specific [place] 1.018 Urine Protein 3+ H Urine Glucose (UA) 3+ H Urine Ketones Negative Urine Blood 1+ H Urine Nitrite Negative Urine Bilirubin Negative Urine Urobilinogen 0.2 Ur Leukocyte Esterase Negative Urine RBC (Auto) 8 Urine Casts (Auto) 1 U Epithel Cells (Auto) 4.6 Urine Bacteria (Auto) 215.1 Influenza A (Rapid) Influenza B (Rapid) RSV Rapid Negative 06/02/19 06/03/19 06/03/19 22:23 05:55 05:55 WBC 8.3 RBC 3.37 L Hgb 9.0 L Hct 26.2 L D MCV 77.6 L MCH 26.8 MCHC 34.5 RDW 13.6 Plt Count 212 MPV 8.8 Absolute Neuts (auto) 6.0 Neutrophils % 73.3 Lymphocytes % 15.7 Monocytes % 6.6 Eosinophils % 3.6 Basophils % 0.8 Nucleated RBC % 0 PT with INR INR PTT (Actin FS) VBG pH POC VBG pCO2 POC VBG pO2 VBG HCO3 VBG O2 Sat (Sanchez) VBG Base Excess Sodium 139 Potassium 3.2 L Chloride 110 H Carbon Dioxide 21 Anion Gap 9 BUN 10.9 Creatinine 2.7 H Est GFR (CKD-EPI)AfAm 21.64 Est GFR (CKD-EPI)NonAf 18.67 POC Glucometer 328 Random Glucose 183 H Hemoglobin A1c % Calcium 8.4 L Phosphorus 2.8 Magnesium 1.9 Total Bilirubin 0.2 AST 13 L ALT 13 Alkaline Phosphatase 102 Creatine Kinase Troponin I Total Protein 5.8 L Albumin 2.1 L Beta-Hydroxybutyrate TSH 0.86 Urine Color Urine Appearance Urine pH Ur Specific [place] Urine Protein Urine Glucose (UA) Urine Ketones Urine Blood Urine Nitrite Urine Bilirubin Urine Urobilinogen Ur Leukocyte Esterase Urine RBC (Auto) Urine Casts (Auto) U Epithel Cells (Auto) Urine Bacteria (Auto) Influenza A (Rapid) Influenza B (Rapid) RSV Rapid 06/03/19 06/03/19 06/03/19 05:55 06:48 12:07 WBC RBC Hgb Hct MCV MCH MCHC RDW Plt Count MPV Absolute Neuts (auto) Neutrophils % Lymphocytes % Monocytes % Eosinophils % Basophils % Nucleated RBC % PT with INR INR PTT (Actin FS) VBG pH POC VBG pCO2 POC VBG pO2 VBG HCO3 VBG O2 Sat (Sanchez) VBG Base Excess Sodium Potassium Chloride Carbon Dioxide Anion Gap BUN Creatinine Est GFR (CKD-EPI)AfAm Est GFR (CKD-EPI)NonAf POC Glucometer 198 136 Random Glucose Hemoglobin A1c % 12.6 H Calcium Phosphorus Magnesium Total Bilirubin AST ALT Alkaline Phosphatase Creatine Kinase Troponin I Total Protein Albumin Beta-Hydroxybutyrate TSH Urine Color Urine Appearance Urine pH Ur Specific [place] Urine Protein Urine Glucose (UA) Urine Ketones Urine Blood Urine Nitrite Urine Bilirubin Urine Urobilinogen Ur Leukocyte Esterase Urine RBC (Auto) Urine Casts (Auto) U Epithel Cells (Auto) Urine Bacteria (Auto) Influenza A (Rapid) Influenza B (Rapid) RSV Rapid 06/03/19 06/03/19 06/04/19 17:09 21:16 06:10 WBC RBC Hgb Hct MCV MCH MCHC RDW Plt Count MPV Absolute Neuts (auto) Neutrophils % Lymphocytes % Monocytes % Eosinophils % Basophils % Nucleated RBC % PT with INR INR PTT (Actin FS) VBG pH POC VBG pCO2 POC VBG pO2 VBG HCO3 VBG O2 Sat (Sanchez) VBG Base Excess Sodium Potassium Chloride Carbon Dioxide Anion Gap BUN Creatinine Est GFR (CKD-EPI)AfAm Est GFR (CKD-EPI)NonAf POC Glucometer 211 206 119 Random Glucose Hemoglobin A1c % Calcium Phosphorus Magnesium Total Bilirubin AST ALT Alkaline Phosphatase Creatine Kinase Troponin I Total Protein Albumin Beta-Hydroxybutyrate TSH Urine Color Urine Appearance Urine pH Ur Specific [place] Urine Protein Urine Glucose (UA) Urine Ketones Urine Blood Urine Nitrite Urine Bilirubin Urine Urobilinogen Ur Leukocyte Esterase Urine RBC (Auto) Urine Casts (Auto) U Epithel Cells (Auto) Urine Bacteria (Auto) Influenza A (Rapid) Influenza B (Rapid) RSV Rapid 02/06/04/19 06/04/19 06:30 06:30 12:24 WBC 8.4 RBC 3.89 Hgb 10.4 L Hct 30.8 L D MCV 79.2 L MCH 26.7 MCHC 33.7 RDW 14.2 Plt Count 233 MPV 8.8 Absolute Neuts (auto) 5.7 Neutrophils % 68.6 Lymphocytes % 20.2 D Monocytes % 6.8 Eosinophils % 3.5 Basophils % 0.9 Nucleated RBC % 0 PT with INR INR PTT (Actin FS) VBG pH POC VBG pCO2 POC VBG pO2 VBG HCO3 VBG O2 Sat (Sanchez) VBG Base Excess Sodium 139 Potassium 3.3 L Chloride 109 H Carbon Dioxide 24 Anion Gap 6 L BUN 12.6 Creatinine 3.1 H Est GFR (CKD-EPI)AfAm 18.31 Est GFR (CKD-EPI)NonAf 15.80 POC Glucometer 296 Random Glucose 141 H Hemoglobin A1c % Calcium 9.2 Phosphorus 3.1 Magnesium 2.0 Total Bilirubin AST ALT Alkaline Phosphatase Creatine Kinase Troponin I Total Protein Albumin Beta-Hydroxybutyrate TSH Urine Color Urine Appearance Urine pH Ur Specific [place] Urine Protein Urine Glucose (UA) Urine Ketones Urine Blood Urine Nitrite Urine Bilirubin Urine Urobilinogen Ur Leukocyte Esterase Urine RBC (Auto) Urine Casts (Auto) U Epithel Cells (Auto) Urine Bacteria (Auto) Influenza A (Rapid) Influenza B (Rapid) RSV Rapid 06/04/19 18:04 WBC RBC Hgb Hct MCV MCH MCHC RDW Plt Count MPV Absolute Neuts (auto) Neutrophils % Lymphocytes % Monocytes % Eosinophils % Basophils % Nucleated RBC % PT with INR INR PTT (Actin FS) VBG pH POC VBG pCO2 POC VBG pO2 VBG HCO3 VBG O2 Sat (Sanchez) VBG Base Excess Sodium Potassium Chloride Carbon Dioxide Anion Gap BUN Creatinine Est GFR (CKD-EPI)AfAm Est GFR (CKD-EPI)NonAf POC Glucometer 291 Random Glucose Hemoglobin A1c % Calcium Phosphorus Magnesium Total Bilirubin AST ALT Alkaline Phosphatase Creatine Kinase Troponin I Total Protein Albumin Beta-Hydroxybutyrate TSH Urine Color Urine Appearance Urine pH Ur Specific [place] Urine Protein Urine Glucose (UA) Urine Ketones Urine Blood Urine Nitrite Urine Bilirubin Urine Urobilinogen Ur Leukocyte Esterase Urine RBC (Auto) Urine Casts (Auto) U Epithel Cells (Auto) Urine Bacteria (Auto) Influenza A (Rapid) Influenza B (Rapid) RSV Rapid Home Medications Medication Instructions Recorded Carvedilol 25 mg PO BID 10/22/14 Ergocalciferol (Vitamin D2) 50,000 unit PO WEEKLY 03/29/19 [Vitamin D2] Pregabalin [Lyrica -] 25 mg PO TID #90 capsule MDD 75mg 03/31/19 Alcohol Antiseptic Pads [Alcohol 1 each TP HS #1 box 06/04/19 Prep Pad] Amlodipine Besylate [Norvasc -] 10 mg PO DAILY #30 tablet 06/04/19 Atorvastatin Ca [Lipitor] 20 mg PO HS #30 tablet 06/04/19 Budesonide/Formeterol Fumarate 2 inh PO BID #1 inhaler 06/04/19 [SYMBICORT 160/4.5mcg -] Duloxetine HCl 20 mg PO HS #30 capsule. 06/04/19 Hydroxychloroquine Sulfate 400 mg PO DAILY #30 tablet 06/04/19 [Plaquenil] Insulin (LOG) Aspart [NovoLOG -] See Protocol SQ AC #1 vial 06/04/19 Insulin Glargine,Hum.rec.anlog 25 unit SQ HS #1 insuln.pen 06/04/19 [Basaglar Kwikpen U-100] Montelukast Na [Singulair -] 10 mg PO HS #30 tablet 06/04/19 LABS Laboratory Results - last 24 hr 06/04/19 06/04/19 12:24 18:04 POC Glucometer 296 291 HOSPITAL COURSE: 59 F h/o morbid obesity, uncontrolled IDDM, HTN, CKD, asthma, RA, breast cancer s/p radiation, fibromyalgia, presented to the ED due to generalized weakness and fatigue since yesterday. Patient was endorsing excessive thirst and frequent urination of clear-yellowish urine. Denies fever/chills/SOB/CP/LOC/ syncope/abdominal pain, endorses generalized weakness. In ED patient's FS found to be in 800s. Upon further interviewing, pt. endorses not using her insulin in the past 2-3 weeks. Endorses she is busy taking care of her mom and "forgets" to take her medications and has no time. Patient admitted for hyperglycemia not found to be in DKA, likely 2/2 HHS, was given Levemir 25u BID with improvement of FS <200. Patient endorses improvement of polyuria and polydipsia, wants to follow up with a PCP from [facility] and to go home. A/P: 58 F h/o morbid obesity, uncontrolled IDDM2, HTN, CKD 4, asthma, COPD not on O2 , RA, breast cancer s/p radiation, fibromyalgia, incarcerated hernia s/p repair admitted for uncontrolled hyperglycemia. Uncontrolled hyperglycemia secondary to hyperglycemic hyperosmolar syndrome 2/2 insulin non-compliance improved FS now <200 reinforced insulin use and using it daily Patient to be discharged on Lantus 25u qAM and Novolog 3-5u premeal TID, patient compliance reinforced Follow up with PCP at [facility], follow up with Dr. Martínez [facility] [place] on CKD 4 2/2 excessive diuresis from hyperglycemia improved, CRE trending down strict avoidance of nephrotoxins, stay hydrated, insulin compliance HTN Restart home BP medications Follow with PCP Asthma not in acute exacerbation cont. home meds Fibromyalgia cont. home meds GERD PPI PRN RA cont. home meds HLD continue statin Discharge medications: Lantus 25u qAM Novolog 3-5u three times a day before meals Please continue all other home medications. Dispositon: Patient to be discharged home with follow up appointment with PCP at [facility], Endocrine clinic with Dr. Martínez (number given to call), and Urology clinic with Dr. Shavon Coles (number given for appointment). Patient advised if she feels worsening of polyuria/polydipsia, CP/SOB, abdominal pain, N/V/D/, fever, AMS, LOC to go to ED immediately. Patient to be discharged with assistance of her son. Date of Admission:06/02/19 Date of Discharge: 06/05/19 Minutes to complete discharge: 40 Discharge Summary Problems reviewed: Yes Reason For Visit: HYPERGLYCEMIA - Instructions Diet, Activity, Other Instructions: You were admitted to the hospital because your sugar level was found to be high. You were given Insulin injections and your sugar improved. Please take Lantus 25 units every morning along with 5 units of Novolog three times a day before meals. It is important that you take your medications regularly. Continue your other home medications. Please follow up with your primary care physician in 1 week. Please follow up with an plant senior manager (Dr. Martínez). Please call the office to schedule an appointment. Please call the office to schedule an appointment at [phone]. Please follow up with a urologist for your intermittent hesitant urination (Dr. Minerva Coles). Please call the office to schedule an appointment at [phone]. Call [phone] or go to the ED if with any fever, chills, headache, chest pain, shortness of breath, or any new concerns noted. Referrals: Timothy Martínez MD [Staff Physician] - Minerva Coles MD [Staff Physician] - Disposition: HOME - Home Medications Comprehensive Discharge Medication List: Ambulatory Orders Carvedilol 25 mg PO BID 10/22/14 Ergocalciferol (Vitamin D2) [Vitamin D2] 50,000 unit PO WEEKLY 03/29/19 Pregabalin [Lyrica -] 25 mg PO TID #90 capsule MDD 75mg 03/31/19 Alcohol Antiseptic Pads [Alcohol Prep Pad] 1 each TP HS #1 box 06/04/19 Amlodipine Besylate [Norvasc -] 10 mg PO DAILY #30 tablet 06/04/19 Atorvastatin Ca [Lipitor] 20 mg PO HS #30 tablet 06/04/19 Budesonide/Formeterol Fumarate [SYMBICORT 160/4.5mcg -] 2 inh PO BID #1 inhaler 06/04/19 Duloxetine HCl 20 mg PO HS #30 capsule. 06/04/19 Hydroxychloroquine Sulfate [Plaquenil] 400 mg PO DAILY #30 tablet 06/04/19 Insulin (LOG) Aspart [NovoLOG -] See Protocol SQ AC #1 vial 06/04/19 Insulin Glargine,Hum.rec.anlog [Basaglar Kwikpen U-100] 25 unit SQ HS #1 insuln.pen 06/04/19 Montelukast Na [Singulair -] 10 mg PO HS #30 tablet 06/04/19 This patient is new to me today: No Emergency Visit: Yes ED Registration Date: 06/02/19 Care time: The patient presented to the Emergency Department on the above date and was hospitalized for further evaluation of their emergent condition. Critical Care patient: No - Discharge Referral Referred to [facility] Med P.C.: No
== END 2019-06-04 19:20 | disposition home or self-care (01) ==
LOC: JER 12:02 → JERBED 17:03 → INTOOBSV 17:03 → JERBED 06-03 09:47 → J7W 06-03 16:33
PROC: 3E033VG Introduction of Insulin into Peripheral Vein, Percutaneous Approach (ICD-10-PCS; principal; 2019-06-02)
PROC: 3E0337Z Introduction of Electrolytic and Water Balance Substance into Peripheral Vein, Percutaneous Approach (ICD-10-PCS; 2019-06-02)
PROC: 3E013VG Introduction of Insulin into Subcutaneous Tissue, Percutaneous Approach (ICD-10-PCS; 2019-06-02)
DX: E11.65 Type 2 diabetes mellitus with hyperglycemia (principal); E11.22 Type 2 diabetes mellitus with diabetic chronic kidney disease; I12.9 Hypertensive chronic kidney disease with stage 1 through stage 4 chronic kidney disease, or unspecified chronic kidney disease; N18.4 Chronic kidney disease, stage 4 (severe); N17.9 Acute kidney failure, unspecified; Z79.4 Long term (current) use of insulin; J45.909 Unspecified asthma, uncomplicated; M06.9 Rheumatoid arthritis, unspecified; C50.919 Malignant neoplasm of unspecified site of unspecified female breast; M79.7 Fibromyalgia; M54.5 Low back pain; G89.29 Other chronic pain; K46.0 Unspecified abdominal hernia with obstruction, without gangrene; D64.9 Anemia, unspecified; E78.5 Hyperlipidemia, unspecified; K21.9 Gastro-esophageal reflux disease without esophagitis; Z91.14 Patient's other noncompliance with medication regimen; E66.01 Morbid (severe) obesity due to excess calories; Z68.41 Body mass index [BMI] 40.0-44.9, adult; Z92.21 Personal history of antineoplastic chemotherapy; Z92.3 Personal history of irradiation
CPT/HCPCS: 36415; 71046-TC-FY; 80048; 80053; 81003; 82010; 82550; 82803; 82962; 83036; 83735; 84100; 84443; 84484; 85025; 85610; 85730; 87804; 87807; 93005; 93010; 96372; 96374; 99285-25; G0378; J1644; J7030

== ENCOUNTER 2019-10-30 15:14 | Inpatient (IN) | payer OTHER ==
[2019-10-30] MEDS ORDERED: ACETAMINOPHEN 1000 MG/100 ML VIAL (NON FORMULARY) IVPB ONE (15:32)
[2019-10-30] MEDS ORDERED: SODIUM CHLORIDE 0.9% 500 ML INFUS.BAG IV ONE ×2 (15:32→16:15)
--- NOTE | 2019-10-30 15:33 | PDOC ---
History of Present Illness - General Chief Complaint: Blood Sugar Problem Stated Complaint: ALTERED MENTAL STATUS History Source: Patient Exam Limitations: Clinical Condition - History of Present Illness Initial Comments: 10/30/19 15:33 59 F h/o morbid obesity, uncontrolled IDDM, HTN, CKD, asthma, RA, breast cancer s/p radiation, fibromyalgia presenting w syncope, lethargy, hyperglycemia. Pt is lethargic, unable to get much hx. Pt endorsed falling down and hitting head on bathtub. Past History - Medical History Allergies/Adverse Reactions: Allergies Allergy/AdvReac Type Severity Reaction Status Date / Time Fish Containing Products Allergy Verified 06/03/19 12:44 fish derived Allergy Verified 06/03/19 12:44 shellfish derived Allergy Swelling Verified 06/02/19 12:16 Home Medications: Ambulatory Orders Carvedilol 25 mg PO BID 10/22/14 Ergocalciferol (Vitamin D2) [Vitamin D2] 50,000 unit PO WEEKLY 03/29/19 Pregabalin [Lyrica -] 25 mg PO TID #90 capsule MDD 75mg 03/31/19 Alcohol Antiseptic Pads [Alcohol Prep Pad] 1 each TP HS #1 box 06/04/19 Amlodipine Besylate [Norvasc -] 10 mg PO DAILY #30 tablet 06/04/19 Atorvastatin Ca [Lipitor] 20 mg PO HS #30 tablet 06/04/19 Budesonide/Formeterol Fumarate [SYMBICORT 160/4.5mcg -] 2 inh PO BID #1 inhaler 06/04/19 Duloxetine HCl 20 mg PO HS #30 capsule. 06/04/19 Hydroxychloroquine Sulfate [Plaquenil] 400 mg PO DAILY #30 tablet 06/04/19 Insulin (LOG) Aspart [NovoLOG -] See Protocol SQ AC #1 vial 06/04/19 Insulin Glargine,Hum.rec.anlog [Basaglar Kwikpen U-100] 25 unit SQ HS #1 insuln.pen 06/04/19 Montelukast Na [Singulair -] 10 mg PO HS #30 tablet 06/04/19 Anemia: Yes Asthma: Yes Cancer: Yes (BREAST(LT)) COPD: No Diabetes: Yes HTN: Yes Hypercholesterolemia: Yes - Surgical History Abdominal Surgery: Yes (cholycystectomy) Appendectomy: Yes Cholecystectomy: Yes - Immunization History Td Vaccination: Yes - Psycho-Social/Smoking History Smoking History: Never smoked Have you smoked in the past 12 months: No Review of Systems - Review of Systems Able to Perform ROS?: No (lethargic) *Physical Exam - Physical Exam General Appearance: Yes: Nourished, Appropriately Dressed, Moderate Distress, Obese HEENT: positive: FOX. negative: Scleral Icterus (R), Scleral Icterus (L) Neck: positive: Supple. negative: Tender, Rigid Respiratory/Chest: positive: Lungs Clear, Normal Breath Sounds. negative: Chest Tender, Crackles, Rales, Rhonchi, Stridor, Wheezing Cardiovascular: positive: Regular Rhythm, Regular Rate, S1, S2. negative: Murmur Gastrointestinal/Abdominal: positive: Normal Bowel Sounds, Tender (epigastric, LUQ), Flat, Soft Extremity: positive: Delayed Capillary Refill Integumentary: positive: Normal Color, Dry, Warm Neurologic: positive: Fully Oriented, Alert, Responsive. negative: Normal Mood/Affect (lethargic) ED Treatment Course - LABORATORY CBC & Chemistry Diagram: 10/30/19 11:50 10/30/19 11:50 - ADDITIONAL ORDERS Additional order review: Laboratory Results 10/30/19 15:23 POC Glucometer > 600 10/30/19 15:23 POC Glucometer > 600 - RADIOLOGY Radiology Studies Ordered: Category Date Time Status ABDOMEN & PELVIS CT WITH CONTR [CT] Stat CT Scan 10/30/19 15:[address] W/O CONTR [CT] Stat CT Scan 10/30/19 15:[address] WITHOUT CONTRAST [CT] Stat CT Scan 10/30/19 15:31 Ordered Medical Decision Making - Medical Decision Making 10/30/19 19:06 Head/c-spine/abd CT - no acute fx/dislocation/bleed/infarct. Small stable demond adrenal nodules, 3cm L simple renal cyst EKG - sinus rhythm w 1st deg block, LVH, HR 73, QTc 473, new TWI V6 vs 12/8, unchanged TWI I, aVL CXR - cardiomegaly, clear lung cary --- 59 F h/o morbid obesity, uncontrolled IDDM, HTN, CKD, asthma, RA, breast cancer s/p radiation, fibromyalgia presenting w syncope, lethargy, hyperglycemia Hyperglycemia BG 625. Not DKA (pH >7.3, no gap or ketones). Low concern for PNA (clear lungs) vs ACS (neg trop, no chest pain) vs acute abd pathology (neg CT) Given 2L NS, 10u insulin, 40 KCl, started maintenance LR @150. More awake/alert on re-eval. Repeat BG 469 from 625 Admit tele for hyperglycemia, syncope, acute on chronic kidney injury Discharge - Discharge Information Problems reviewed: Yes Clinical Impression/Diagnosis: Acute kidney injury superimposed on CKD, Hyperglycemia Syncope Qualifiers: Syncope type: unspecified Qualified Code(s): R55 - Syncope and collapse Condition: Improved - Follow up/Referral - Patient Discharge Instructions - Post Discharge Activity
[2019-10-30 16:02] LABS: BASO % 1.2 % (0-2.0); HEMATOCRIT 29.4 % (32.4-45.2); HEMOGLOBIN 9.5 GM/dL (10.7-15.3); LYMPH % 16.9 % (8-40); MCH 26.8 pg (25.7-33.7); MCHC 32.5 g/dl (32.0-36.0); MEAN CELL VOLUME 82.6 fl (80-96); MEAN PLT VOLUME 9.5 fl (7.5-11.1); MONO % 5.7 % (3.8-10.2); NEUT % 74.2 % (42.8-82.8); PLATELET COUNT 206 K/MM3 (134-434); RBC 3.56 M/mm3 (3.60-5.2); RDW 13.4 % (11.6-15.6); WHITE BLOOD COUNT 8.1 K/mm3 (4.0-10.0)
[2019-10-30 16:10] LABS: INR 1.05 (0.83-1.09); PROTHROMBIN TIME (PATIENT) 12.4 SEC (9.7-13.0)
[2019-10-30 16:11] LABS: VENOUS BASE EXCESS -2.4 mmol/L (-2-2); VENOUS O2 SATURATION 83.9 % (70-80); VENOUS PCO2 48.5 mmHg (38-52); VENOUS PH 7.312 (7.310-7.410)
[2019-10-30 16:33] LABS: ALBUMIN 1.9 g/dl (3.4-5.0); BILIRUBIN,TOTAL 0.2 mg/dL (0.2-1); BLOOD UREA NITROGEN 42.8 mg/dL (7-18); CALCIUM 7.9 mg/dL (8.5-10.1); POTASSIUM 3.6 mmol/L (3.5-5.1); TOT PROT 5.4 g/dl (6.4-8.2)
[2019-10-30] MEDS ORDERED: POTASSIUM CHLORIDE ORAL LIQUID 20 MEQ/15 ML PO ONE (16:40)
[2019-10-30] MEDS ORDERED: INSULIN REGULAR HUMAN 100 UNITS/ML *VIAL IVPUSH ONE (16:53)
[2019-10-30] MEDS ORDERED: POTASSIUM CHLORIDE ORAL LIQUID 20 MEQ/15 ML ONE (17:13)
[2019-10-30] MEDS ORDERED: ACETAMINOPHEN 325 MG TABLET (FP) ONE (17:13)
[2019-10-30] MEDS ORDERED: SODIUM CHLORIDE 1,000 ML IV STA (17:32)
--- NOTE | 2019-10-30 18:33 | PDOC ---
Documentation entered by Caren Silverio SCRIBE, acting as scribe for Benito Lazo MD. Benito Lazo MD: This documentation has been prepared by the Nusrat devries Xhesika, SCRIBE, under my direction and personally reviewed by me in its entirety. I confirm that the documentation accurately reflects all work, treatment, procedures, and medical decision making performed by me. Attending Attestation - Resident Resident Name: Norris,Ty - ED Attending Attestation I have performed the following: I have examined & evaluated the patient, The case was reviewed & discussed with the resident, I agree w/resident's findings & plan, Exceptions are as noted - HPI HPI: 10/30/19 17:10 The patient is a 59y/o F with a PMH of morbid obesity, uncontrolled IDDM, HTN, CKD, asthma, RA, breast cancer s/p radiation, fibromyalgia who presents to the ED BIBA for lethargy and hyperglycemia (>600). Per EMS, the patient was found at home unresponsive by her son. Pt is a poor historian and unable to contribute to history. Allergies: Fish containing products, fish derived, shellfish derived - Physicial Exam PE: 10/30/19 18:30 EXAMINATION CONSTITUTIONAL: Patient is awake and alert, morbidly obese, HEAD: Normocephalic; atraumatic EYES: PERRL; EOM intact ENMT: External appears normal; normal oropharynx NECK: Supple; non-tender; dry mm CARD: Normal S1, S2; no murmurs, rubs, or gallops RESP: Normal chest excursion with respiration; breath sounds clear and equal bilaterally; no wheezes, rhonchi, or rales ABD: Soft, non-distended; non-tender; no palpable organomegaly, no palpable hernias EXT: Normal ROM in all four extremities; non-tender to palpation; distal pulses intact SKIN: Warm, dry, no rash NEURO: Cranial nerves II through XII are grossly intact; motor is five 5 x 4; no pronation drift; gait-deferred - Medical Decision Making 10/30/19 18:32 Patient is a morbidly obese 59-year-old female with multiple comorbidities, noncompliant with her medication regimen presents to the ER after a syncopal episode with clinical signs of dehydration and hyperglycemia. EKG reveals no evidence of acute dysrhythmia, inverted T waves are noted in 1, aVL and V6. Patient is nonfocal neurologically. CBC is within normal limit. CMP reveals hyperglycemia with a normal anion gap. Will aggressively hydrated. Will reassess. Will administer subcu insulin. Likely admission. Discharge - Discharge Information Problems reviewed: Yes Clinical Impression/Diagnosis: Acute kidney injury superimposed on CKD, Hyperglycemia Syncope Qualifiers: Syncope type: unspecified Qualified Code(s): R55 - Syncope and collapse Condition: Improved - Follow up/Referral - Patient Discharge Instructions - Post Discharge Activity
[2019-10-30] MEDS ORDERED: LACTATED RINGERS SOLUTION 1,000 ML/1,000 ML INFUS.BAG IV SCH (18:45)
[2019-10-30 20:00] LABS: EPI CELLS 14 /uL (0-25.1); HYALINE CASTS 1 /uL (0-3.1); URINE APPEARANCE CLEAR; URINE BACTERIA 1198 /uL (0-1359); URINE BILIRUBIN NEGATIVE (NEGATIVE); URINE COLOR YELLOW; URINE GLUCOSE (UA) 3+ (NEGATIVE); URINE KETONE NEGATIVE (NEGATIVE); URINE LEUK ESTERASE 1+ (NEGATIVE); URINE NITRITE NEGATIVE (NEGATIVE); URINE PROTEIN 3+ (NEGATIVE); URINE RBC 11 /uL (0-23.9); URINE UROBILINOGEN 0.2 mg/dL (0.2-1.0); URINE WBC 178 /uL (0-25.8)
--- NOTE | 2019-10-30 21:11 | HP ---
CHIEF COMPLAINT: BBIB after being found by son passed out on the floor PCP: HISTORY OF PRESENT ILLNESS: Patient is T a 59 yo F with a PMH of morbid obesity, uncontrolled IDDM, HTN, CKD, asthma, RA, breast cancer s/p radiation, & fibromyalgia who was BIBA to ED after being found passed out by her son. She doesn't remember what she was doing before she passed out and her first memory after is waking up is being in the hospital. She said she remembers feeling tired and achy this morning. She is currently complaining of her eyes and legs bothering her. She said she checked her sugar this morning and it was in the 400s and that is normal for her. In the ED she was found to be hyperglycemia (>600). Patient is unable to give complete history due to AMS. ER course was notable for: (1)BG > 600 (2)UA + for leuks, proteins & glucose (3)CT, CXR, EKG Recent Travel: denies PAST MEDICAL HISTORY:IDDM, HTN, CKD, Asthma, RA, Breast cancer s/p radition on tamoxifen therapy PAST SURGICAL HISTORY: Incarcerated Hernia, Cholecystectomy, appendectomy, C- Section, Hysterectomy. Social History: Smoking:denies Alcohol: denies Drugs: denies Allergies Fish Containing Products Allergy (Verified 06/03/19 12:44) fish derived Allergy (Verified 06/03/19 12:44) shellfish derived Allergy (Verified 06/02/19 12:16) Swelling HOME MEDICATIONS: Home Medications Medication Instructions Recorded Carvedilol 25 mg PO BID 10/22/14 Ergocalciferol (Vitamin D2) 50,000 unit PO WEEKLY 03/29/19 [Vitamin D2] Pregabalin [Lyrica -] 25 mg PO TID #90 capsule MDD 75mg 03/31/19 Alcohol Antiseptic Pads [Alcohol 1 each TP HS #1 box 06/04/19 Prep Pad] Amlodipine Besylate [Norvasc -] 10 mg PO DAILY #30 tablet 06/04/19 Atorvastatin Ca [Lipitor] 20 mg PO HS #30 tablet 06/04/19 Budesonide/Formeterol Fumarate 2 inh PO BID #1 inhaler 06/04/19 [SYMBICORT 160/4.5mcg -] Duloxetine HCl 20 mg PO HS #30 capsule. 02/14/20 Hydroxychloroquine Sulfate 400 mg PO DAILY #30 tablet 06/04/19 [Plaquenil] Insulin (LOG) Aspart [NovoLOG -] See Protocol SQ AC #1 vial 06/04/19 Insulin Glargine,Hum.rec.anlog 25 unit SQ HS #1 insuln.pen 06/04/19 [Basaglar Kwikpen U-100] Montelukast Na [Singulair -] 10 mg PO HS #30 tablet 06/04/19 REVIEW OF SYSTEMS CONSTITUTIONAL: + generalized weakness & malaise Absent: fever, chills, diaphoresis, , loss of appetite, weight change HEENT: + eye pain Absent: rhinorrhea, nasal congestion, throat pain, throat swelling, difficulty swallowing, mouth swelling, ear pain, visual changes CARDIOVASCULAR: Absent: chest pain, syncope, palpitations, irregular heart rate, lightheadedness, peripheral edema RESPIRATORY: Absent: cough, shortness of breath, dyspnea with exertion, orthopnea, wheezing, stridor, hemoptysis GASTROINTESTINAL: Absent: abdominal pain, abdominal distension, nausea, vomiting, diarrhea, constipation, melena, hematochezia GENITOURINARY: Absent: dysuria, frequency, urgency, hesitancy, hematuria, flank pain, genital pain MUSCULOSKELETAL: Absent: myalgia, arthralgia, joint swelling, back pain, neck pain SKIN: Absent: rash, itching, pallor HEMATOLOGIC/IMMUNOLOGIC: Absent: easy bleeding, easy bruising, lymphadenopathy, frequent infections ENDOCRINE: Absent: unexplained weight gain, unexplained weight loss, heat intolerance, cold intolerance NEUROLOGIC: + for mental status change, headache Absent: focal weakness or paresthesias, dizziness, unsteady gait, seizure, bladder or bowel incontinence PSYCHIATRIC: Absent: anxiety, depression, suicidal or homicidal ideation, hallucinations. PHYSICAL EXAMINATION CONSTITUTIONAL: Patient is awake and alert, oriented to time and person, morbidly obese, HEAD: Normocephalic; atraumatic EYES: PERRL; EOM intact ENMT: Mouth has white foam and appears very dry CARD: Normal S1, S2; no murmurs, rubs, or gallops RESP: Normal chest excursion with respiration; breath sounds clear and equal bilaterally ABD: Soft, distended; tender to palpation in all 4 quadrants; could not appreciate hepto/spleonomegaly EXT: Normal ROM in all four extremities; non-tender to palpation; distal pulses intact SKIN: Warm, dry, no rash NEURO: Cranial nerves II through XII are grossly intact Vital Signs - 24 hr 10/30/19 10/30/19 15:15 19:55 Temperature 97.6 F Pulse Rate 75 Pulse Rate [ 60 Left] Respiratory 17 16 Rate Blood Pressure 106/59 L Blood Pressure 167/80 [Right Arm] O2 Sat by Pulse 94 L 100 Oximetry (%) Laboratory Results - last 24 hr 10/30/19 10/30/19 10/30/19 11:50 11:50 11:50 WBC 8.1 RBC 3.56 L Hgb 9.5 L Hct 29.4 L MCV 82.6 MCH 26.8 MCHC 32.5 RDW 13.4 Plt Count 206 MPV 9.5 Absolute Neuts (auto) 6.0 Neutrophils % 74.2 Lymphocytes % 16.9 Monocytes % 5.7 Eosinophils % 2.0 Basophils % 1.2 Nucleated RBC % 0 PT with INR 12.40 INR 1.05 VBG pH 7.312 POC VBG pCO2 48.5 POC VBG pO2 52.6 H VBG HCO3 24.0 VBG O2 Sat (Sanchez) 83.9 H VBG Base Excess -2.4 L Sodium Potassium Chloride Carbon Dioxide Anion Gap BUN Creatinine Est GFR (CKD-EPI)AfAm Est GFR (CKD-EPI)NonAf POC Glucometer Random Glucose Calcium Total Bilirubin AST ALT Alkaline Phosphatase Creatine Kinase Troponin I Total Protein Albumin Beta-Hydroxybutyrate Urine Color Urine Appearance Urine pH Ur Specific [place] Urine Protein Urine Glucose (UA) Urine Ketones Urine Blood Urine Nitrite Urine Bilirubin Urine Urobilinogen Ur Leukocyte Esterase Urine WBC (Auto) Urine RBC (Auto) Urine Casts (Auto) U Epithel Cells (Auto) Urine Bacteria (Auto) 10/30/19 10/30/19 10/30/19 11:50 15:23 17:41 WBC RBC Hgb Hct MCV MCH MCHC RDW Plt Count MPV Absolute Neuts (auto) Neutrophils % Lymphocytes % Monocytes % Eosinophils % Basophils % Nucleated RBC % PT with INR INR VBG pH POC VBG pCO2 POC VBG pO2 VBG HCO3 VBG O2 Sat (Sanchez) VBG Base Excess Sodium 135 L Potassium 3.6 Chloride 101 Carbon Dioxide 22 Anion Gap 13 BUN 42.8 H Creatinine 4.0 H Est GFR (CKD-EPI)AfAm 13.46 Est GFR (CKD-EPI)NonAf 11.61 POC Glucometer > 600 469 Random Glucose 625 H* Calcium 7.9 L Total Bilirubin 0.2 AST 14 L ALT 15 Alkaline Phosphatase 75 Creatine Kinase 29 Troponin I 0.02 Total Protein 5.4 L Albumin 1.9 L Beta-Hydroxybutyrate 1.5 Urine Color Urine Appearance Urine pH Ur Specific [place] Urine Protein Urine Glucose (UA) Urine Ketones Urine Blood Urine Nitrite Urine Bilirubin Urine Urobilinogen Ur Leukocyte Esterase Urine WBC (Auto) Urine RBC (Auto) Urine Casts (Auto) U Epithel Cells (Auto) Urine Bacteria (Auto) 10/30/19 10/30/19 18:50 19:53 WBC RBC Hgb Hct MCV MCH MCHC RDW Plt Count MPV Absolute Neuts (auto) Neutrophils % Lymphocytes % Monocytes % Eosinophils % Basophils % Nucleated RBC % PT with INR INR VBG pH POC VBG pCO2 POC VBG pO2 VBG HCO3 VBG O2 Sat (Sanchez) VBG Base Excess Sodium Potassium Chloride Carbon Dioxide Anion Gap BUN Creatinine Est GFR (CKD-EPI)AfAm Est GFR (CKD-EPI)NonAf POC Glucometer 316 Random Glucose Calcium Total Bilirubin AST ALT Alkaline Phosphatase Creatine Kinase Troponin I Total Protein Albumin Beta-Hydroxybutyrate Urine Color Yellow Urine Appearance Clear Urine pH 6.0 Ur Specific [place] 1.020 Urine Protein 3+ H Urine Glucose (UA) 3+ H Urine Ketones Negative Urine Blood 2+ H Urine Nitrite Negative Urine Bilirubin Negative Urine Urobilinogen 0.2 Ur Leukocyte Esterase 1+ H Urine WBC (Auto) 178 Urine RBC (Auto) 11 Urine Casts (Auto) 1 U Epithel Cells (Auto) 14 Urine Bacteria (Auto) 1198 ASSESSMENT/PLAN: 59 yo obese female with a PMH of uncontrolled IDDM, HTN, CKD, asthma, RA, breast cancer s/p radiation, & fibromyalgia, presented to the ED after a syncopal episode. In ED was found to have a sugar > 600. Patient admitted to tele for workup for syncope and monitoring of her glucose Hyperosmolar Hyperglycemic State - start sliding scale - started on 10 levamir, will most likely have to go up tomorrow - BGM Q4 hrs - Hba1c - fluids NS 100cc/hr - recheck BMP tonight with mg + phos, repleat as needed Syncope - from hyperglycemia vs cardiac - monitor on tele - repeat EKG - echo UTI -Started 1 g ceftriaxone for possible UTI -cultures pending Prophylaxis -sq heparin 5000 TID FEN -100cc/ml NS x 1 bag (received 2 L in ER & LR maintenance) -diabetic diet -repeat BMPs tonight and AM - replete electrolytes as needed PLEASE FOLLOW UP ON PATIENT TAMOXIFEN DOSE/ MED REC IN AM Visit type - Emergency Visit Emergency Visit: Yes ED Registration Date: 10/30/19 Care time: The patient presented to the Emergency Department on the above date and was hospitalized for further evaluation of their emergent condition. - New Patient This patient is new to me today: Yes Date on this admission: 11/07/19 - Critical Care Critical Care patient: No ATTENDING PHYSICIAN STATEMENT I saw and evaluated the patient. I reviewed the resident's note and discussed the case with the resident. I agree with the resident's findings and plan as documented. SUBJECTIVE: OBJECTIVE: ASSESSMENT AND PLAN:
[2019-10-30] MEDS ORDERED: SODIUM CHLORIDE 1,000 ML IV SCH (21:15)
[2019-10-30] MEDS ORDERED: INSULIN (LEVEMIR) 100 UNITS/ML UNITS SQ ONE (21:28)
[2019-10-30] MEDS ORDERED: CEFTRIAXONE 1 GM in DEXTROSE 5%-WATER - 50 ML IVPB ONE (21:30)
--- NOTE | 2019-10-30 22:12 | HP ---
HISTORY OF PRESENT ILLNESS: 59 yo F with a PMH of morbid obesity, DM, HTN, CKD, asthma, RA, breast cancer (s/p radiation,on tamoxfen), and fibromyalgia who was BIBA to ED after being found by her son after a syncopal event. pt states that she cannot recall exact events, but states she has felt unwell the whole day. she states she has not been very adherant with her medications . she states that she hasnt been eating well and that she is nauseas. she is unable to recall her home medications. she states that does follow up with a rehabilitation engineer and oncologist from [facility] MEDICATIONS: Home Medications Medication Instructions Recorded Carvedilol 25 mg PO BID 10/22/14 Ergocalciferol (Vitamin D2) 50,000 unit PO WEEKLY 03/29/19 [Vitamin D2] Pregabalin [Lyrica -] 25 mg PO TID #90 capsule MDD 75mg 03/31/19 Alcohol Antiseptic Pads [Alcohol 1 each TP HS #1 box 06/04/19 Prep Pad] Amlodipine Besylate [Norvasc -] 10 mg PO DAILY #30 tablet 06/04/19 Atorvastatin Ca [Lipitor] 20 mg PO HS #30 tablet 06/04/19 Budesonide/Formeterol Fumarate 2 inh PO BID #1 inhaler 06/04/19 [SYMBICORT 160/4.5mcg -] Duloxetine HCl 20 mg PO HS #30 capsule. 06/04/19 Hydroxychloroquine Sulfate 400 mg PO DAILY #30 tablet 06/04/19 [Plaquenil] Insulin (LOG) Aspart [NovoLOG -] See Protocol SQ AC #1 vial 06/04/19 Insulin Glargine,Hum.rec.anlog 25 unit SQ HS #1 insuln.pen 06/04/19 [Basaglar Kwikpen U-100] Montelukast Na [Singulair -] 10 mg PO HS #30 tablet 06/04/19 REVIEW OF SYSTEMS CONSTITUTIONAL: Present: generalized weakness Absent: fever, chills, diaphoresis,malaise, loss of appetite, weight change HEENT: Absent: rhinorrhea, nasal congestion, throat pain, throat swelling, difficulty swallowing, mouth swelling, ear pain, eye pain, visual changes CARDIOVASCULAR: Absent: chest pain, syncope, palpitations, irregular heart rate, lightheadedness, peripheral edema RESPIRATORY: Absent: cough, shortness of breath, dyspnea with exertion, orthopnea, wheezing, stridor, hemoptysis GASTROINTESTINAL: Present: nausea, vomiting Absent: abdominal pain, abdominal distension, diarrhea, constipation, melena, hematochezia GENITOURINARY: Absent: dysuria, frequency, urgency, hesitancy, hematuria, flank pain, genital pain MUSCULOSKELETAL: Absent: myalgia, arthralgia, joint swelling, back pain, neck pain SKIN: Absent: rash, itching, pallor HEMATOLOGIC/IMMUNOLOGIC: Absent: easy bleeding, easy bruising, lymphadenopathy, frequent infections ENDOCRINE: Absent: unexplained weight gain, unexplained weight loss, heat intolerance, cold intolerance NEUROLOGIC: Absent: headache, focal weakness or paresthesias, dizziness, unsteady gait, seizure, mental status changes, bladder or bowel incontinence PSYCHIATRIC: Absent: anxiety, depression, suicidal or homicidal ideation, hallucinations. PHYSICAL EXAMINATION Vital Signs - 24 hr 10/30/19 10/30/19 10/30/19 15:15 19:55 21:26 Temperature 97.6 F Pulse Rate 75 Pulse Rate [ 60 61 Left] Respiratory 17 16 16 Rate Blood Pressure 106/59 L Blood Pressure 167/80 161/68 [Right Arm] O2 Sat by Pulse 94 L 100 100 Oximetry (%) GENERAL: Awake, alert, and oriented, in no acute distress. obese HEAD: Normal with no signs of trauma. NECK: Normal range of motion, supple without lymphadenopathy, JVD, or masses. LUNGS: Breath sounds equal, clear to auscultation bilaterally. No wheezes, and no crackles. No accessory muscle use. HEART: Regular rate and rhythm, normal S1 and S2 ABDOMEN: Soft, TTP at RUQ, not distended, normoactive bowel sounds, no guarding, no rebound, hepatomegaly MUSCULOSKELETAL: Normal range of motion at all joints. No bony deformities or tenderness. No CVA tenderness. UPPER EXTREMITIES: 2+ pulses, warm, well-perfused. No cyanosis. No clubbing. No peripheral edema. LOWER EXTREMITIES: 2+ pulses, warm, well-perfused. No calf tenderness. No peripheral edema. NEUROLOGICAL: Cranial nerves II-XII intact. Normal speech. Laboratory Last Values WBC 8.1 K/mm3 (4.0-10.0) 10/30/19 11:50 RBC 3.56 M/mm3 (3.60-5.2) L 10/30/19 11:50 Hgb 9.5 GM/dL (10.7-15.3) L 10/30/19 11:50 Hct 29.4 % (32.4-45.2) L 10/30/19 11:50 MCV 82.6 fl (80-96) 10/30/19 11:50 MCH 26.8 pg (25.7-33.7) 10/30/19 11:50 MCHC 32.5 g/dl (32.0-36.0) 10/30/19 11:50 RDW 13.4 % (11.6-15.6) 10/30/19 11:50 Plt Count 206 K/MM3 (134-434) 10/30/19 11:50 MPV 9.5 fl (7.5-11.1) 10/30/19 11:50 Absolute Neuts (auto) 6.0 K/mm3 (1.5-8.0) 10/30/19 11:50 Neutrophils % 74.2 % (42.8-82.8) 10/30/19 11:50 Lymphocytes % 16.9 % (8-40) 10/30/19 11:50 Monocytes % 5.7 % (3.8-10.2) 10/30/19 11:50 Eosinophils % 2.0 % (0-4.5) 10/30/19 11:50 Basophils % 1.2 % (0-2.0) 10/30/19 11:50 Nucleated RBC % 0 % (0-0) 10/30/19 11:50 PT with INR 12.40 SEC (9.7-13.0) 10/30/19 11:50 INR 1.05 (0.83-1.09) 10/30/19 11:50 VBG pH 7.312 (7.310-7.410) 10/30/19 11:50 POC VBG pCO2 48.5 mmHg (38-52) 10/30/19 11:50 POC VBG pO2 52.6 mmHg (28-48) H 10/30/19 11:50 VBG HCO3 24.0 mmol/L (23-29) 10/30/19 11:50 VBG O2 Sat (Sanchez) 83.9 % (70-80) H 10/30/19 11:50 VBG Base Excess -2.4 mmol/L (-2-2) L 10/30/19 11:50 Sodium 135 mmol/L (136-145) L 10/30/19 11:50 Potassium 3.6 mmol/L (3.5-5.1) 10/30/19 11:50 Chloride 101 mmol/L (98-107) 10/30/19 11:50 Carbon Dioxide 22 mmol/L (21-32) 10/30/19 11:50 Anion Gap 13 MMOL/L (8-16) 10/30/19 11:50 BUN 42.8 mg/dL (7-18) H 10/30/19 11:50 Creatinine 4.0 mg/dL (0.55-1.3) H 10/30/19 11:50 Est GFR (CKD-EPI)AfAm 13.46 10/30/19 11:50 Est GFR (CKD-EPI)NonAf 11.61 10/30/19 11:50 POC Glucometer 316 UNITS (80-120) 10/30/19 19:53 Random Glucose 625 mg/dL (74-106) H* 10/30/19 11:50 Calcium 7.9 mg/dL (8.5-10.1) L 10/30/19 11:50 Total Bilirubin 0.2 mg/dL (0.2-1) 10/30/19 11:50 AST 14 U/L (15-37) L 10/30/19 11:50 ALT 15 U/L (13-61) 10/30/19 11:50 Alkaline Phosphatase 75 U/L (45-117) 10/30/19 11:50 Creatine Kinase 29 U/L (26-192) 10/30/19 11:50 Troponin I 0.02 ng/ml (0.00-0.05) 10/30/19 11:50 Total Protein 5.4 g/dl (6.4-8.2) L 10/30/19 11:50 Albumin 1.9 g/dl (3.4-5.0) L 10/30/19 11:50 Beta-Hydroxybutyrate 1.5 mg/dL (0.2-2.8) 10/30/19 11:50 Urine Color Yellow 10/30/19 18:50 Urine Appearance Clear 10/30/19 18:50 Urine pH 6.0 (5.0-8.0) 10/30/19 18:50 Ur Specific [place] 1.020 (1.010-1.035) 10/30/19 18:50 Urine Protein 3+ (NEGATIVE) H 10/30/19 18:50 Urine Glucose (UA) 3+ (NEGATIVE) H 10/30/19 18:50 Urine Ketones Negative (NEGATIVE) 10/30/19 18:50 Urine Blood 2+ (NEGATIVE) H 10/30/19 18:50 Urine Nitrite Negative (NEGATIVE) 10/30/19 18:50 Urine Bilirubin Negative (NEGATIVE) 10/30/19 18:50 Urine Urobilinogen 0.2 mg/dL (0.2-1.0) 10/30/19 18:50 Ur Leukocyte Esterase 1+ (NEGATIVE) H 10/30/19 18:50 Urine WBC (Auto) 178 /uL (0-25.8) 10/30/19 18:50 Urine RBC (Auto) 11 /uL (0-23.9) 10/30/19 18:50 Urine Casts (Auto) 1 /uL (0-3.1) 10/30/19 18:50 U Epithel Cells (Auto) 14 /uL (0-25.1) 10/30/19 18:50 Urine Bacteria (Auto) 1198 /uL (0-1359) 10/30/19 18:50 ASSESSMENT/PLAN: 59 yo F with a PMH of morbid obesity, DM, HTN, CKD, asthma, RA, breast cancer (s/p radiation,on tamoxfen), and fibromyalgia who was BIBA for syncopal event Syncope - CT head negative - + UA , cont ceftriaxone . pending Cx - echo , tele monitoring - IVF [place] on CKD -c/w IVF - renal u/s , u lytes - renal consult DM - A1C - BGM , ISS - frequent checks - given 10 units in ED - given 10 levemir tonight HTN cont home meds once reconcilled Admit to tele ATTENDING PHYSICIAN STATEMENT I saw and evaluated the patient. I reviewed the resident's note and discussed the case with the resident. I agree with the resident's findings and plan as documented. SUBJECTIVE: OBJECTIVE: ASSESSMENT AND PLAN:
--- NOTE | 2019-10-30 22:12 | PN ---
Teaching Attending Note Name of Resident: Anahi Patel ATTENDING PHYSICIAN STATEMENT I saw and evaluated the patient. I reviewed the resident's note and discussed the case with the resident. I agree with the resident's findings and plan as documented. SUBJECTIVE: PASSED OUT, FOUND ON BATHROOM FLOOR OBJECTIVE: 59 F h/o morbid obesity, uncontrolled IDDM, HTN, CKD (last Cr of 2.9), asthma, RA, breast cancer s/p radiation, fibromyalgia presenting w syncope, lethargy, hyperglycemia. Pt was found on the bathroom floor by her family member this am -- pt states she doesnt remember exactly what happened. She reports going to the bathroom frequently - polyuria, but recently also has some urinary burning. Denies any fevers, chills. Reprots nasuea and amlaiase. States she doesnt comply with a diabetic diet. Misses her insulin doses often In ED -- pt was noted to be hyperglycemic over 600. s/p insulin she is now down to 310 blood sugar. bicarb stable sodium slightly low hco3 of 23 PMHX: IDDM, HTN, HL, RA, Breast CA hx PSHX: cholecystecomy, c/s Meds: as per JUN Allergies: shellfish Social Hx: Denies any alcohol, tobacco or drug use Travel Hx: Denies Family Hx: Father with hx of Ht disease Labs CBC, BMP 10/30/19 11:50 10/30/19 11:50 ct head/ abd/pelvis: pending cxr: mild blunting of angles, no acute infiltrates per my interpretation Home Medication List Medication Instructions Recorded Confirmed Type Carvedilol 25 mg PO BID 10/22/14 06/02/19 History Ergocalciferol (Vitamin D2) 50,000 unit PO WEEKLY 03/29/19 06/02/19 History [Vitamin D2] Active Medications Generic Name Dose Route Start Last Admin Trade Name Freq PRN Reason Stop Dose Admin Amlodipine Besylate 10 mg 10/31/19 10:00 Norvasc - PO DAILY VINCE Atorvastatin Calcium 20 mg 10/31/19 22:00 Lipitor - PO HS VINCE Budesonide/Formoterol Fumarate 2 puff 10/31/19 10:00 Symbicort 160/4.5mcg - IH BID VINCE Carvedilol 25 mg 10/31/19 10:00 Coreg - PO BID VINCE Duloxetine HCl 20 mg 10/31/19 22:00 Cymbalta - PO HS VINCE Heparin Sodium (Porcine) 5,000 unit 10/30/19 22:00 10/30/19 22:39 Heparin - SQ 5,000 unit TID VINCE Administration Hydroxychloroquine Sulfate 400 mg 10/31/19 10:00 Plaquenil - PO DAILY VINCE Sodium Chloride 1,000 mls @ 100 mls/hr 10/30/19 21:15 10/30/19 22:37 Normal Saline - IV 10/31/19 07:14 100 mls/hr ASDIR VINCE Administration Insulin Aspart 0 vial 10/30/19 22:00 10/30/19 22:39 Novolog Vial Sliding Scale - SQ 6 units ACHS VINCE Administration Protocol Montelukast Sodium 10 mg 10/31/19 22:00 Singulair - PO HS VINCE Pregabalin 25 mg 10/31/19 06:00 Lyrica - PO TID VINCE ASSESSMENT AND PLAN: 59 y/o female with the above med hx admitted post syncopal episode with hyperglycemia *syncope -- from infecetion/ hyperosmolar sate? extreme dehydration? s/p 2 liters in D, will give another liter now corrected sodium is higher - volume contracted admit to tele, rule out arrhythmia, check cardiac enzymes *acute on ckd - baseline seems to be elevated at 2.9 now acute due to prerenal azotemia hydrate monitor for volume overload recheck in am *hyperosmolar state - hydrate check electrolytes, check phosphorus m,onitor for acidosis check b hydroxybutarate *RA - on plaquenl, monitor qt *htn - cont norvasc and coreg with parameters *Dvt porphy - sq heparin D/w and examined pt with resdient Problem List - Problems (1) Syncope Code(s): R55 - SYNCOPE AND COLLAPSE Qualifiers: Syncope type: unspecified Qualified Code(s): R55 - Syncope and collapse (2) Hyperglycemia Code(s): R73.9 - HYPERGLYCEMIA, UNSPECIFIED (3) Acute kidney injury superimposed on CKD Code(s): N17.9 - ACUTE KIDNEY FAILURE, UNSPECIFIED; N18.9 - CHRONIC KIDNEY DISEASE, UNSPECIFIED
[2019-10-30] MEDS ORDERED: cefTRIAXone SODIUM 1 GM VIAL ONE (22:31)
[2019-10-30] MEDS ORDERED: DEXTROSE 5%-WATER - 50 ML IVPB ONE (22:32)
[2019-10-30] MEDS: INSULIN SLIDING SCALE (NOVOLOG) 1 VIAL SQ SCH (22:39)
[2019-10-30] MEDS: HEPARIN NA (PORCINE) 5,000 UNITS/ML 1ML VIAL SQ SCH (22:39)
[2019-10-31] MEDS: PREGABALIN 25 MG CAPSULE PO SCH ×3 (05:59→21:53)
[2019-10-31] MEDS: INSULIN SLIDING SCALE (NOVOLOG) 1 VIAL SQ SCH ×4 (05:59→21:54)
[2019-10-31] MEDS: HEPARIN NA (PORCINE) 5,000 UNITS/ML 1ML VIAL SQ SCH ×3 (05:59→21:53)
[2019-10-31 07:10] LABS: CHOLESTEROL 124 mg/dL (50-200); HDL CHOLESTEROL 32 mg/dL (40-60); LDL CHOLESTEROL (ONLY SJRH) 51 mg/dL (5-100); TRIGLYCERIDES 363 mg/dL (0-150)
[2019-10-31 07:12] LABS: ALBUMIN 2.3 g/dl (3.4-5.0); BILIRUBIN,TOTAL 0.2 mg/dL (0.2-1); BLOOD UREA NITROGEN 37.2 mg/dL (7-18); CALCIUM 9.1 mg/dL (8.5-10.1); CREATININE 3.9 mg/dL (0.55-1.3); MAGNESIUM 1.9 mg/dL (1.8-2.4); PHOSPHOROUS 3.4 mg/dL (2.5-4.9); POTASSIUM 4.1 mmol/L (3.5-5.1); TOT PROT 6.7 g/dl (6.4-8.2)
--- NOTE | 2019-10-31 08:12 | PN ---
Progress Note, Physician Chief Complaint: No new complaint, no complaint of dizziness or vertigo History of Present Illness: 59-year-old female morbidly obese ambulates with a walker noncompliant, previously admitted with uncontrolled diabetes mellitus hyperglycemia, lives alone at home history of hypertension, type 2 diabetes mellitus, asthma, fibromyalgia , per patient yesterday she was out with the son not feeling well so went home, while at home she felt very dizzy and passed out called his son for help and understand find her on the floor confused, 9 pneumonia was called came to ED for evaluation of transient loss of consciousness, no witnessed seizure activity, bowel bladder incontinence or tongue bite patient is able to quality of event before and after the loss of consciousness, neuro exam remains nonfocal in the ED work-up shows normal CT scan, nonfocal neuro exam severe hypoglycemia with a random plasma glucose 625 and [place] on CKD stage IV admitted for further management, UA was positive for WBC leukoesterase and nitrite. - Current Medication List Current Medications: Active Medications Amlodipine Besylate (Norvasc -) 10 mg PO DAILY [facility] Atorvastatin Calcium (Lipitor -) 20 mg PO HS [facility] Budesonide/Formoterol Fumarate (Symbicort 160/4.5mcg -) 2 puff IH BID [facility]IN[facility] Carvedilol (Coreg -) 25 mg PO BID [facility] Duloxetine HCl (Cymbalta -) 20 mg PO HS [facility] Heparin Sodium (Porcine) (Heparin -) 5,000 unit SQ TID [facility] Last Admin: 10/31/19 05:59 Dose: 5,000 unit Documented by: Ceftriaxone Sodium 1,000 mg/ (Dextrose) 50 mls @ 100 mls/hr IVPB DAILY [facility] Insulin Aspart (Novolog Vial Sliding Scale -) 0 vial SQ ACHS [facility]; Protocol Last Admin: 10/31/19 05:59 Dose: Not Given Documented by: Montelukast Sodium (Singulair -) 10 mg PO HS [facility] Pregabalin (Lyrica -) 25 mg PO TID [facility] Last Admin: 10/31/19 05:59 Dose: 25 mg Documented by: - Objective Vital Signs: Temperature 98.4 F 10/31/19 06:17 Pulse Rate 71 10/31/19 06:17 Respiratory Rate 18 10/31/19 06:17 Blood Pressure 191/78 H 10/31/19 06:17 O2 Sat by Pulse Oximetry (%) 100 10/30/19 23:14 General: Middle aged obese female, comfortable, not in distress HEENT mucous membranes moist, no anemia, no jaundice, PERRLA, no nystagmus Neck: No JVD, supple, no bruit, thyroid palpably normal, normal carotid pulsations. Chest: Nontender, clear to auscultation bilaterally CVS: S1-S2 regular no murmur/gallop/rub Abdomen: Nondistended, soft, bowel sounds present. 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 X3 , no gross motor sensory deficit Labs: CBC, BMP 10/30/19 11:50 10/31/19 06:05 INR, PTT INR 1.05 (0.83-1.09) 10/30/19 11:50 CT head: No acute changes - ....Imaging Cat Scan: Report Reviewed (Reported normal) EKG: Report Reviewed (EKG shows heart rate 73, tall R wave in lead I, aVL and T wave inversion lead I , aVL V4 5 6 consistent with LVH, QTC 473) Problem List - Problems (1) Transient loss of consciousness Assessment/Plan: Most likely due to hypoglycemia in the setting of UTI, nonfocal neuro exam, no seizure activity, CT head normal, no EKG changes shows LVH , no arrhythmia on court monitor troponin I is normal will follow-up echocardiogram. Problems reviewed: Yes Code(s): R55 - SYNCOPE AND COLLAPSE (2) Acute kidney injury superimposed on chronic kidney disease Assessment/Plan: Patient is history of CKD stage 4 requiring worsening kidney function baseline creatinine is 2.9, most likely due to hyperosmolar, continue IV saline infusion follow-up BMP. We will follow-up bladder scan to rule out any outflow obst ruction. Problems reviewed: Yes Code(s): N17.9 - ACUTE KIDNEY FAILURE, UNSPECIFIED; N18.9 - CHRONIC KIDNEY DISEASE, UNSPECIFIED (3) Hyperglycemia Assessment/Plan: Uncontrolled type 2 diabetes mellitus hemoglobin A1c is 13.5, in the setting of UTI present with hyperglycemia random plasma glucose more than 600 optimize glycemic control will increase the dose of Levemir target fingersticks are less than 180 mg Problems reviewed: Yes Code(s): R73.9 - HYPERGLYCEMIA, UNSPECIFIED (4) Type 2 diabetes mellitus with nephropathy Assessment/Plan: Uncontrolled type 2 diabetes mellitus with CKD stage III presented with [place] continue IV hydration follow-up BMP., Monitor urine albumin level. Problems reviewed: Yes Code(s): E11.21 - TYPE 2 DIABETES MELLITUS WITH DIABETIC NEPHROPATHY (5) UTI (urinary tract infection) Assessment/Plan: Continue ceftriaxone 1 g daily follow urine and blood culture. Problems reviewed: Yes Code(s): N39.0 - URINARY TRACT INFECTION, SITE NOT SPECIFIED (6) Hypertension Assessment/Plan: Well-controlled continue home medications Problems reviewed: Yes Code(s): I10 - ESSENTIAL (PRIMARY) HYPERTENSION (7) Hypercholesterolemia Assessment/Plan: Continue statin. Problems reviewed: Yes Code(s): E78.00 - PURE HYPERCHOLESTEROLEMIA, UNSPECIFIED (8) COPD (chronic obstructive pulmonary disease) Assessment/Plan: Stable resume home medications. Problems reviewed: Yes Code(s): J44.9 - CHRONIC OBSTRUCTIVE PULMONARY DISEASE, UNSPECIFIED (9) Fibromyalgia Assessment/Plan: Resume home medications Problems reviewed: Yes Code(s): M79.7 - FIBROMYALGIA
[2019-10-31] MEDS ORDERED: HYDROXYCHLOROQUINE SO4 200 MG TABLET (FP) PO SCH (10:00)
[2019-10-31] MEDS ORDERED: DEXTROSE 5%-WATER - 50 ML IVPB ONE (10:03)
[2019-10-31] MEDS ORDERED: cefTRIAXone SODIUM 1 GM VIAL ONE (10:03)
[2019-10-31] MEDS: amLODIPine BESYLATE 10 MG TABLET (FP) PO SCH (10:24)
[2019-10-31] MEDS: CEFTRIAXONE 1 GM in DEXTROSE 5%-WATER - 50 ML IVPB SCH (10:24)
[2019-10-31] MEDS: CARVEDILOL 12.5 MG TABLET (FP) PO SCH ×2 (10:24→21:53)
[2019-10-31] MEDS: BUDESONIDE/FORMETEROL FUMARATE 160/4.5 mcg INHALER IH SCH ×2 (10:31→23:04)
--- NOTE | 2019-10-31 11:28 | EKG ---
Test Reason : Blood Pressure : / mmHG Vent. Rate : 073 BPM Atrial Rate : 073 BPM P-R Int : 216 ms QRS Dur : 086 ms QT Int : 430 ms P-R-T Axes : 046 -02 176 degrees QTc Int : 473 ms SINUS RHYTHM WITH 1ST DEGREE A-V BLOCK LEFT VENTRICULAR HYPERTROPHY WITH REPOLARIZATION ABNORMALITY ABNORMAL ECG WHEN COMPARED WITH ECG OF 02-JUN-2019 15:14, T WAVE INVERSION NOW EVIDENT IN INFERIOR LEADS Confirmed by TOM RAMIREZ, PAULO ([id number]) on 10/31/2019 11:27:55 AM Referred By: Confirmed By:PAULO SANTOS MD
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
[2019-10-31] MEDS ORDERED: BENZOCAINE/MENTH/CETYLPYRD CL 1 EACH LOZENGE MM PRN (19:12)
[2019-10-31] MEDS: ATORVASTATIN CA 20 MG TABLET (FP) PO SCH (21:53)
[2019-10-31] MEDS: MONTELUKAST NA 10 MG TABLET PO SCH (21:53)
[2019-10-31] MEDS: DULoxetine HCL 20 MG CAPSULE.DR PO SCH (21:54)
[2019-11-01] MEDS: HEPARIN NA (PORCINE) 5,000 UNITS/ML 1ML VIAL SQ SCH ×3 (06:25→21:44)
[2019-11-01] MEDS: PREGABALIN 25 MG CAPSULE PO SCH ×3 (06:26→21:47)
[2019-11-01] MEDS: INSULIN SLIDING SCALE (NOVOLOG) 1 VIAL SQ SCH ×4 (06:29→21:57)
--- NOTE | 2019-11-01 07:42 | PN ---
Teaching Attending Note Name of Resident: Silvia Lopez ATTENDING PHYSICIAN STATEMENT I saw and evaluated the patient. I reviewed the resident's note and discussed the case with the resident. I agree with the resident's findings and plan as documented. SUBJECTIVE: OBJECTIVE: Vital Signs Temperature 98.6 F 11/01/19 06:00 Pulse Rate 70 11/01/19 06:00 Respiratory Rate 18 11/01/19 06:00 Blood Pressure 174/80 H 11/01/19 06:00 O2 Sat by Pulse Oximetry (%) 96 10/31/19 21:00 General: Middle aged obese female, comfortable, not in distress HEENT mucous membranes moist, no anemia, no jaundice, PERRLA, no nystagmus Neck: No JVD, supple, no bruit, thyroid palpably normal, normal carotid pulsations. Chest: Nontender, clear to auscultation bilaterally CVS: S1-S2 regular no murmur/gallop/rub Abdomen: Nondistended, soft, bowel sounds present. 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 , no gross motor sensory deficit CBC, BMP 10/30/19 11:50 10/31/19 06:05 ASSESSMENT AND PLAN:59-year-old female morbidly obese ambulates with a walker noncompliant, previously admitted with uncontrolled diabetes mellitus hyperglycemia, lives alone at home history of hypertension, type 2 diabetes mellitus, asthma, fibromyalgia , Impression: Transient loss of consciousness rule out syncope Hyperglycemia Problem List - Problems (1) Transient loss of consciousness Assessment/Plan: Most likely due to hypoglycemia in the setting of UTI, nonfocal neuro exam, no seizure activity, CT head normal, no EKG changes shows LVH , no arrhythmia on bus driver/monitor troponin I are normal will follow-up echocardiogram, orthostatic blood pressure check, PT evaluation. Code(s): R55 - SYNCOPE AND COLLAPSE (2) Acute kidney injury superimposed on chronic kidney disease Assessment/Plan: Patient is history of CKD stage 4 requiring worsening kidney function baseline creatinine is 2.9, most likely due to hyperosmolar diuresis, continue IV saline infusion follow-up BMP. Ultrasound KUB shows no outflow obstruction. Follow-up nephrology recommendations Code(s): N17.9 - ACUTE KIDNEY FAILURE, UNSPECIFIED; N18.9 - CHRONIC KIDNEY DISEASE, UNSPECIFIED (3) Hyperglycemia Assessment/Plan: Uncontrolled type 2 diabetes mellitus hemoglobin A1c is 13.5, in the setting of UTI present with hyperglycemia random plasma glucose more than 600 optimize glycemic control will increase the dose of Levemir target fingersticks are less than 180 mg Code(s): R73.9 - HYPERGLYCEMIA, UNSPECIFIED (4) Type 2 diabetes mellitus with nephropathy Assessment/Plan: Uncontrolled type 2 diabetes mellitus with CKD stage III presented with [place] continue IV hydration follow-up BMP., Monitor urine albumin level. Code(s): E11.21 - TYPE 2 DIABETES MELLITUS WITH DIABETIC NEPHROPATHY (5) UTI (urinary tract infection) Assessment/Plan: Continue ceftriaxone 1 g daily follow urine culture grew beta streptococci 50 K will switch to p.o. Augmentin. Code(s): N39.0 - URINARY TRACT INFECTION, SITE NOT SPECIFIED (6) Hypertension Assessment/Plan: Well-controlled continue home medications Code(s): I10 - ESSENTIAL (PRIMARY) HYPERTENSION (7) Hypercholesterolemia Assessment/Plan: Continue statin. Code(s): E78.00 - PURE HYPERCHOLESTEROLEMIA, UNSPECIFIED (8) COPD (chronic obstructive pulmonary disease) Assessment/Plan: Stable resume home medications. Code(s): J44.9 - CHRONIC OBSTRUCTIVE PULMONARY DISEASE, UNSPECIFIED (9) Fibromyalgia Assessment/Plan: Continue all home medications Code(s): M79.7 - FIBROMYALGIA (10) Rheumatoid arthritis Assessment/Plan: Resume home medications patient was on Plaquenil Problems reviewed: Yes Code(s): M06.9 - RHEUMATOID ARTHRITIS, UNSPECIFIED
[2019-11-01] MEDS ORDERED: PT OWN MED DRAWER 7, Y5N ONE (09:01)
[2019-11-01] MEDS ORDERED: cefTRIAXone SODIUM 1 GM VIAL ONE (09:01)
[2019-11-01] MEDS ORDERED: DEXTROSE 5%-WATER - 50 ML IVPB ONE (09:02)
[2019-11-01] MEDS: CEFTRIAXONE 1 GM in DEXTROSE 5%-WATER - 50 ML IVPB SCH (09:08)
[2019-11-01] MEDS: amLODIPine BESYLATE 10 MG TABLET (FP) PO SCH (09:08)
[2019-11-01] MEDS: CARVEDILOL 12.5 MG TABLET (FP) PO SCH ×2 (09:08→21:43)
[2019-11-01] MEDS: BUDESONIDE/FORMETEROL FUMARATE 160/4.5 mcg INHALER IH SCH ×2 (09:11→21:47)
[2019-11-01 12:03] LABS: BASO % 0.9 % (0-2.0); EOS % 3.3 % (0-4.5); HEMATOCRIT 30.5 % (32.4-45.2); LYMPH % 19.8 % (8-40); MCHC 32.9 g/dl (32.0-36.0); MEAN PLT VOLUME 9.3 fl (7.5-11.1); MONO % 5.9 % (3.8-10.2); NEUT % 70.1 % (42.8-82.8); PLATELET COUNT 214 K/MM3 (134-434); RBC 3.72 M/mm3 (3.60-5.2); RDW 13.7 % (11.6-15.6); WHITE BLOOD COUNT 7.5 K/mm3 (4.0-10.0)
[2019-11-01] MEDS ORDERED: INSULIN (LEVEMIR) 100 UNITS/ML UNITS SQ SCH ×2 (12:15→22:00)
[2019-11-01 12:31] LABS: ALBUMIN 2.4 g/dl (3.4-5.0); BILIRUBIN,TOTAL 0.3 mg/dL (0.2-1); BLOOD UREA NITROGEN 30.8 mg/dL (7-18); CALCIUM 8.6 mg/dL (8.5-10.1); CREATININE 3.8 mg/dL (0.55-1.3); MAGNESIUM 1.7 mg/dL (1.8-2.4); POTASSIUM 4.1 mmol/L (3.5-5.1); TOT PROT 6.8 g/dl (6.4-8.2)
--- NOTE | 2019-11-01 12:31 | PN ---
Progress Note, Physician Chief Complaint: Acute kidney injury History of Present Illness: Seen and examined at the bedside awake and alert feels very sad/depressed that she is in the hospital and feeling weak no sob, cp, fever, chills could not stand due to weakness making urine appetite is preserved - Current Medication List Current Medications: Active Medications Amlodipine Besylate (Norvasc -) 10 mg PO DAILY [facility] Last Admin: 11/01/19 09:08 Dose: 10 mg Documented by: Atorvastatin Calcium (Lipitor -) 20 mg PO [facility] Last Admin: 10/31/19 21:53 Dose: 20 mg Documented by: Benzocaine/Menthol (Cepacol Lozenge -) 1 each MM PRN PRN PRN Reason: SORE THROAT Last Admin: 10/31/19 21:54 Dose: 1 each Documented by: Budesonide/Formoterol Fumarate (Symbicort 160/4.5mcg -) 2 puff IH BID [facility] Last Admin: 11/01/19 09:11 Dose: 2 puff Documented by: Carvedilol (Coreg -) 25 mg PO BID [facility] Last Admin: 11/01/19 09:08 Dose: 25 mg Documented by: Duloxetine HCl (Cymbalta -) 20 mg PO [facility] Last Admin: 10/31/19 21:54 Dose: 20 mg Documented by: Heparin Sodium (Porcine) (Heparin -) 5,000 unit SQ TID [facility] Last Admin: 11/01/19 06:25 Dose: 5,000 unit Documented by: Ceftriaxone Sodium 1 gm/ (Dextrose) 50 mls @ 100 mls/hr IVPB DAILY [facility] Last Admin: 11/01/19 09:08 Dose: 100 mls/hr Documented by: Insulin Aspart (Novolog Vial Sliding Scale -) 0 vial SQ ACHS [facility]; Protocol Last Admin: 11/01/19 12:00 Dose: 10 units Documented by: Insulin Detemir (Levemir Vial) 10 units SQ BID@0700,2200 [facility] Last Admin: 11/01/19 12:23 Dose: 10 units Documented by: Montelukast Sodium (Singulair -) 10 mg PO [facility] Last Admin: 10/31/19 21:53 Dose: 10 mg Documented by: Pregabalin (Lyrica -) 25 mg PO TID [facility] Last Admin: 11/01/19 06:26 Dose: 25 mg Documented by: - Objective Vital Signs: Vital Signs Temperature 98.3 F 11/01/19 09:13 Pulse Rate 68 11/01/19 09:13 Respiratory Rate 18 11/01/19 09:13 Blood Pressure 162/79 11/01/19 09:13 O2 Sat by Pulse Oximetry (%) 96 11/01/19 09:00 Constitutional: Yes: No Distress HENT: Yes: Atraumatic Neck: Yes: Supple Cardiovascular: Yes: Regular Rate and Rhythm Respiratory: Yes: Regular. No: Rales, Rhonchi, Wheezes Gastrointestinal: Yes: Soft, Abdomen, Obese. No: Tenderness Extremities: No: Cold, Cool, Cyanosis Edema: No Neurological: Yes: Alert, Oriented Labs: CBC, BMP 11/01/19 11:33 INR, PTT INR 1.05 (0.83-1.09) 10/30/19 11:50 Assessment/Plan 59 year old woman with history of CKD stage 4 (baseline Cr ~3), DM, hypertension, Asthma, RA and fibromyalgia who presented from home s/p syncope a nd found to have hyperglycemia and [place]. 1. Acute kidney injury 2. CKD stage 4 3. Syncope 4. Hyperglycemia w/o DKA 5. DM 6. Hypertension Todays labs are pending Check urine studies consistent with tubular injury Renal imaging shows no evidence of obstruction Continue isotonic saline for now Syncope work up in progress Tele monitoring Continue amlodipine and coreg for hypertension. Would defer starting MAGALY/ARB for now given low eGFR Aovid NSAIDs and IV contrast Trend renal function and electrolytes daily Riley Rashid DO
[2019-11-01] MEDS: SODIUM CHLORIDE 1,000 ML IV SCH (14:53)
--- NOTE | 2019-11-01 15:03 | PN ---
Physical Exam: SUBJECTIVE: Patient seen and examined at bedside this morning. No acute events overnight. Patient denies any fevers, chills, headache, dizziness, chest pain, SOB. Patient previously sees spool sander Dr. Hawkins. In 2016 she had cardiac cath done after an abnormal stress test, which showed nonobstructive CAD, hyperkinetic ventricle and normal LVEDP. OBJECTIVE: Vital Signs Temperature 98.3 F 11/01/19 09:13 Pulse Rate 68 11/01/19 09:13 Respiratory Rate 18 11/01/19 09:13 Blood Pressure 162/79 11/01/19 09:13 O2 Sat by Pulse Oximetry (%) 96 11/01/19 09:00 GENERAL: The patient is awake, alert, and fully oriented, in no acute distress. HEAD: Normal with no signs of trauma. EYES:PERRLA, EOMI, sclera anicteric, conjunctiva clear. ENT: dry mucous membranes. NECK: supple. LUNGS: Breath sounds equal, clear to auscultation bilaterally HEART: Regular rate and rhythm, S1, S2 without murmur ABDOMEN: Soft, nontender, nondistended, normoactive bowel sounds EXTREMITIES: 2+ pulses, warm, well-perfused, no edema. NEUROLOGICAL: Cranial nerves II through XII grossly intact. Normal speech PSYCH: Normal mood, normal affect. SKIN: Warm, dry, normal turgor Laboratory Results - last 24 hr 10/30/19 10/30/19 10/31/19 11:50 11:50 17:20 WBC RBC Hgb Hct MCV MCH MCHC RDW Plt Count MPV Absolute Neuts (auto) Neutrophils % Lymphocytes % Monocytes % Eosinophils % Basophils % Nucleated RBC % VBG pH 7.312 POC VBG pCO2 48.5 POC VBG pO2 52.6 H VBG HCO3 24.0 VBG O2 Sat (Sanchez) 83.9 H VBG Base Excess -2.4 L Sodium 135 L Potassium 3.6 Chloride 101 Carbon Dioxide 22 Anion Gap 13 BUN 42.8 H Creatinine 4.0 H Est GFR (CKD-EPI)AfAm 13.46 Est GFR (CKD-EPI)NonAf 11.61 POC Glucometer 331 Random Glucose 625 H* Calcium 7.9 L Phosphorus Magnesium Total Bilirubin 0.2 AST 14 L ALT 15 Alkaline Phosphatase 75 Creatine Kinase 29 Troponin I 0.02 Total Protein 5.4 L Albumin 1.9 L Beta-Hydroxybutyrate 1.5 Ur Random Creatinine U Random Total Protein Ur Random Sodium Ur Random Urea Nitrogn Protein/Creatinin Ratio 11/01/19 11/01/19 11/01/19 02:00 11:33 11:33 WBC 7.5 RBC 3.72 Hgb 10.0 L Hct 30.5 L MCV 82.0 MCH 27.0 MCHC 32.9 RDW 13.7 Plt Count 214 MPV 9.3 Absolute Neuts (auto) 5.3 Neutrophils % 70.1 Lymphocytes % 19.8 Monocytes % 5.9 Eosinophils % 3.3 Basophils % 0.9 Nucleated RBC % 0 VBG pH POC VBG pCO2 POC VBG pO2 VBG HCO3 VBG O2 Sat (Sanchez) VBG Base Excess Sodium 136 Potassium 4.1 Chloride 104 Carbon Dioxide 23 Anion Gap 8 BUN 30.8 H Creatinine 3.8 H Est GFR (CKD-EPI)AfAm 14.32 Est GFR (CKD-EPI)NonAf 12.35 POC Glucometer Random Glucose 412 H* Calcium 8.6 Phosphorus 3.0 Magnesium 1.7 L Total Bilirubin 0.3 AST 16 ALT 16 Alkaline Phosphatase 92 Creatine Kinase Troponin I Total Protein 6.8 Albumin 2.4 L Beta-Hydroxybutyrate Ur Random Creatinine 33.0 U Random Total Protein 260.4 H Ur Random Sodium 42 Ur Random Urea Nitrogn 193 L Protein/Creatinin Ratio 7.9 11/01/19 12:30 WBC RBC Hgb Hct MCV MCH MCHC RDW Plt Count MPV Absolute Neuts (auto) Neutrophils % Lymphocytes % Monocytes % Eosinophils % Basophils % Nucleated RBC % VBG pH POC VBG pCO2 POC VBG pO2 VBG HCO3 VBG O2 Sat (Sanchez) VBG Base Excess Sodium Potassium Chloride Carbon Dioxide Anion Gap BUN Creatinine Est GFR (CKD-EPI)AfAm Est GFR (CKD-EPI)NonAf POC Glucometer Random Glucose 450 H* Calcium Phosphorus Magnesium Total Bilirubin AST ALT Alkaline Phosphatase Creatine Kinase Troponin I Total Protein Albumin Beta-Hydroxybutyrate Ur Random Creatinine U Random Total Protein Ur Random Sodium Ur Random Urea Nitrogn Protein/Creatinin Ratio Active Medications Generic Name Dose Route Start Last Admin Trade Name Freq PRN Reason Stop Dose Admin Amlodipine Besylate 10 mg 10/31/19 10:00 11/01/19 09:08 Norvasc - PO 10 mg DAILY VINCE Administration Atorvastatin Calcium 20 mg 10/31/19 22:00 10/31/19 21:53 Lipitor - PO 20 mg HS VINCE Administration Benzocaine/Menthol 1 each 10/31/19 19:12 10/31/19 21:54 Cepacol Lozenge - MM 1 each PRN PRN Administration SORE THROAT Budesonide/Formoterol Fumarate 2 puff 10/31/19 10:00 11/01/19 09:11 Symbicort 160/4.5mcg - IH 2 puff BID VINCE Administration Carvedilol 25 mg 10/31/19 10:00 11/01/19 09:08 Coreg - PO 25 mg BID VINCE Administration Duloxetine HCl 20 mg 10/31/19 22:00 10/31/19 21:54 Cymbalta - PO 20 mg HS VINCE Administration Heparin Sodium (Porcine) 5,000 unit 10/30/19 22:00 11/01/19 06:25 Heparin - SQ 5,000 unit TID VINCE Administration Ceftriaxone Sodium 1 gm/ 50 mls @ 100 mls/hr 10/31/19 10:00 11/01/19 09:08 Dextrose IVPB 100 mls/hr DAILY VINCE Administration Insulin Aspart 0 vial 10/30/19 22:00 11/01/19 12:00 Novolog Vial Sliding Scale - SQ 10 units ACHS VINCE Administration Protocol Insulin Detemir 10 units 11/01/19 12:15 11/01/19 12:23 Levemir Vial SQ 10 units BID@0700,2200 VINCE Administration Montelukast Sodium 10 mg 10/31/19 22:00 10/31/19 21:53 Singulair - PO 10 mg HS VINCE Administration Pregabalin 25 mg 10/31/19 06:00 11/01/19 06:26 Lyrica - PO 25 mg TID VINCE Administration ASSESSMENT/PLAN: Patient is a 59 yo obese female with a PMH of uncontrolled IDDM, HTN, CKD, asthma, RA, breast cancer s/p radiation, & fibromyalgia, presented to the ED after a syncopal episode. In ED was found to have a sugar > 600. #Syncope -likely 2/2 dehydration, in setting of hyperglycemia, UTI -no seizure activity, Head CT normal, no neuro deficits, no events on tele, EKG sinus, normal trop/echo -orthostatics negative, fluids already given -PT evaluation -On IV antibiotics for UTI -will correct hyperglyemia #[place] on CKD -likely in setting of hyperglycemia -Renal US revealed no evidence of obstruction -urine studies consistent with tubular injury -Continue Isotonic saline for now -Avoid NSAIDs and IV contrast -will defer starting ACEI/ARB for now -will continue to monitor renal function and electrolytes. -Nephrology (Dr. Rashid) consulted. REcommendations appreciated. #Hyperglycemia, DM type 2 -HbA1c 13.5, will need to optimize glycemic control -Was started on Insulin SLiding scale -On home Basaglar 28u bid -will start Levemir at 10u bid and titrate up as needed -Insuling sliding scale implemented -BGM ACHS #UTI -Continue IV Ceftriaxone -Urine Cx normal genital andrey #HTN -Continue Amlodipine 5mg and Coreg 25mg bid -will hold starting ACEI/ARB in setting of [place] #HLD -Continue Lipitor 20mg HS #COPD -Continue home meds Singulair and symbicort #Fibromyalgia -Continue Duloxetine 20mg HS #Rheumatoid arthritis -Continue Plaquenil 400mg daily #FEN -IV NS @75cc/hr -ELectrolytes wnl, routine bmp monitoring -Diabetic, sodium restricted diet #Prophylaxis -Heparin 5000u sq tid #Disposition -full code -continue tele monitoring Visit type - Emergency Visit Emergency Visit: Yes ED Registration Date: 10/30/19 Care time: The patient presented to the Emergency Department on the above date and was hospitalized for further evaluation of their emergent condition. - New Patient This patient is new to me today: Yes Date on this admission: 11/01/19 - Critical Care Critical Care patient: No ATTENDING PHYSICIAN STATEMENT I saw and evaluated the patient. I reviewed the resident's note and discussed the case with the resident. I agree with the resident's findings and plan as documented. SUBJECTIVE: OBJECTIVE: ASSESSMENT AND PLAN:
[2019-11-01] MEDS ORDERED: MAGNESIUM SULF 50% (8.12 MEQ/2 ML-1 GM VIAL) IVPB ONE (16:48)
--- NOTE | 2019-11-01 17:22 | ECHO ---
Version: 1 Name: GABBY DE LEÓN Exam: Adult Echocardiogram Study Date: 11/01/2019, 3:10 PM Age: 59 Years MMode/2D Measurements & Calculations IVSd: 1.12 cm LVIDs: 2.8 cm LVIDd: 4.1 cm LVPWd: 1.08 cm LAV (MOD-bp): 67.0 ml ACS: 1.92 cm Ao root diam: 2.9 cm LVOT diam: 2.04 cm LA dimension: 3.5 cm Doppler Measurements & Calculations MV E max babak: 61.4 cm/sec Med E/e': 14.7 MV A max babak: 74.6 cm/sec Med Peak E' Babak: 4.2 cm/sec MV E/A: 0.82 Lat E/e': 7.8 Lat Peak E' Babak: 7.9 cm/sec Ao max P.3 mmHg Ao mean P.7 mmHg Ao V2 max: 143.9 cm/sec TR max babak: 229.4 cm/sec TR max P.0 mmHg Procedure The study was technically difficult with many images being suboptimal in quality. Left Ventricle The left ventricle is normal in size. There is mild concentric left ventricular hypertrophy. The lef t ventricular ejection fraction is normal. Ejection Fraction = 55-60%. The transmitral spectral Dopple r flow pattern is suggestive of impaired LV relaxation. Right Ventricle The right ventricle is grossly normal size. The right ventricular systolic function is grossly izabel l. Atria Normal left and right atrial size and function. Mitral Valve The mitral valve is grossly normal. There is no mitral regurgitation noted. Tricuspid Valve The tricuspid valve is not well visualized, but is grossly normal. No tricuspid regurgitation. Aortic Valve The aortic valve is not well visualized. No hemodynamically significant valvular aortic stenosis. No aortic regurgitation is present. Pulmonic Valve The pulmonic valve is not well visualized. Great Vessels The aortic root is normal size. Pericardium/Pleura There is no pericardial effusion. Tech Comments TDS due to body habitus, s/p breast cancer. Suboptimal apicals due to severe pain under left breast. Summary Statements Technically suboptimal LV: Normal size,mild LVH,normal systolic function EF55-60%, impaired relaxation RV: Normal No significant valvular dysfunction Matteo Harper 11/01/2019, 5:21 PM Ordering Physician: Anahi Paetl Referring Physician: ANAHI MESA Performed By: Kayla Carreon
[2019-11-01 18:30] LABS: BLOOD UREA NITROGEN 32.3 mg/dL (7-18); CALCIUM 8.8 mg/dL (8.5-10.1); CREATININE 3.7 mg/dL (0.55-1.3); POTASSIUM 3.9 mmol/L (3.5-5.1)
[2019-11-01] MEDS ORDERED: INSULIN (NOVOLOG) ASPART 100 UNITS/ML 10ML VIAL SQ ONE (18:54)
[2019-11-01] MEDS ORDERED: Insulin (LOG) Aspart 100 UNITS/ML VIAL SQ ONE (21:30)
[2019-11-01] MEDS: DULoxetine HCL 20 MG CAPSULE.DR PO SCH (21:44)
[2019-11-01] MEDS: ATORVASTATIN CA 20 MG TABLET (FP) PO SCH (21:46)
[2019-11-01] MEDS: MONTELUKAST NA 10 MG TABLET PO SCH (21:47)
[2019-11-02] MEDS: HEPARIN NA (PORCINE) 5,000 UNITS/ML 1ML VIAL SQ SCH ×3 (05:20→21:01)
[2019-11-02] MEDS: PREGABALIN 25 MG CAPSULE PO SCH ×3 (05:20→21:01)
[2019-11-02] MEDS: INSULIN SLIDING SCALE (NOVOLOG) 1 VIAL SQ SCH ×4 (05:59→21:05)
[2019-11-02 06:36] LABS: EOS % 3.2 % (0-4.5); HEMATOCRIT 28.7 % (32.4-45.2); HEMOGLOBIN 9.5 GM/dL (10.7-15.3); LYMPH % 17.5 % (8-40); MCH 26.9 pg (25.7-33.7); MCHC 33.2 g/dl (32.0-36.0); MEAN CELL VOLUME 81.2 fl (80-96); MEAN PLT VOLUME 9.1 fl (7.5-11.1); MONO % 6.3 % (3.8-10.2); PLATELET COUNT 183 K/MM3 (134-434); RBC 3.54 M/mm3 (3.60-5.2); RDW 13.8 % (11.6-15.6); WHITE BLOOD COUNT 6.5 K/mm3 (4.0-10.0)
[2019-11-02 07:01] LABS: MAGNESIUM 2.1 mg/dL (1.8-2.4)
[2019-11-02] MEDS ORDERED: INSULIN SLIDING SCALE (NOVOLOG) 1 VIAL SQ ONE ×2 (08:55→11:32)
[2019-11-02] MEDS ORDERED: cefTRIAXone SODIUM 1 GM VIAL ONE (09:09)
[2019-11-02] MEDS ORDERED: DEXTROSE 5%-WATER - 50 ML IVPB ONE (09:10)
[2019-11-02] MEDS: CARVEDILOL 12.5 MG TABLET (FP) PO SCH ×2 (09:12→21:01)
[2019-11-02] MEDS: amLODIPine BESYLATE 10 MG TABLET (FP) PO SCH (09:12)
[2019-11-02] MEDS: CEFTRIAXONE 1 GM in DEXTROSE 5%-WATER - 50 ML IVPB SCH (09:12)
[2019-11-02] MEDS: HYDROXYCHLOROQUINE SO4 200 MG TABLET (FP) PO SCH ×2 (09:13→09:30)
[2019-11-02] MEDS: BUDESONIDE/FORMETEROL FUMARATE 160/4.5 mcg INHALER IH SCH ×2 (09:20→21:01)
[2019-11-02 09:40] LABS: BLOOD UREA NITROGEN 29.7 mg/dL (7-18); CALCIUM 8.9 mg/dL (8.5-10.1); CREATININE 3.6 mg/dL (0.55-1.3); POTASSIUM 3.8 mmol/L (3.5-5.1)
[2019-11-02] MEDS ORDERED: INSULIN (LEVEMIR) 100 UNITS/ML UNITS SQ SCH ×3 (10:00→22:00)
[2019-11-02 12:59] VITALS: BMI 35.6
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
[2019-11-02] MEDS ORDERED: INSULIN SLIDING SCALE (NOVOLOG) 1 VIAL SQ SCH (13:26)
--- NOTE | 2019-11-02 13:58 | PN ---
Physical Exam: SUBJECTIVE: Patient seen and examined OBJECTIVE: Vital Signs Temperature 98.3 F 11/02/19 09:58 Pulse Rate 66 11/02/19 09:58 Respiratory Rate 18 11/02/19 09:58 Blood Pressure 154/80 11/02/19 09:58 O2 Sat by Pulse Oximetry (%) 99 11/02/19 09:00 GENERAL: The patient is awake, alert, and fully oriented, in no acute distress. HEAD: Normal with no signs of trauma. EYES:PERRLA, EOMI, sclera anicteric, conjunctiva clear. ENT: dry mucous membranes. NECK: supple. LUNGS: Breath sounds equal, clear to auscultation bilaterally HEART: Regular rate and rhythm, S1, S2 without murmur ABDOMEN: Soft, nontender, nondistended, normoactive bowel sounds EXTREMITIES: 2+ pulses, warm, well-perfused, no edema. NEUROLOGICAL: Cranial nerves II through XII grossly intact. Normal speech PSYCH: Normal mood, normal affect. SKIN: Warm, dry, normal turgor Laboratory Results - last 24 hr 10/30/19 11/01/19 11/01/19 18:50 12:30 17:45 WBC RBC Hgb Hct MCV MCH MCHC RDW Plt Count MPV Absolute Neuts (auto) Neutrophils % Lymphocytes % Monocytes % Eosinophils % Basophils % Nucleated RBC % Sodium 137 Potassium 3.9 Chloride 105 Carbon Dioxide 21 Anion Gap 11 BUN 32.3 H Creatinine 3.7 H Est GFR (CKD-EPI)AfAm 14.79 Est GFR (CKD-EPI)NonAf 12.76 Random Glucose 450 H* 445 H* Calcium 8.8 Magnesium COVID-19 ([facility]) Not detected 11/02/19 11/02/19 06:05 06:05 WBC 6.5 RBC 3.54 L Hgb 9.5 L Hct 28.7 L MCV 81.2 MCH 26.9 MCHC 33.2 RDW 13.8 Plt Count 183 MPV 9.1 Absolute Neuts (auto) 4.7 Neutrophils % 72.0 Lymphocytes % 17.5 Monocytes % 6.3 Eosinophils % 3.2 Basophils % 1.0 Nucleated RBC % 0 Sodium 142 Potassium 3.8 Chloride 112 H Carbon Dioxide 20 L Anion Gap 10 BUN 29.7 H Creatinine 3.6 H Est GFR (CKD-EPI)AfAm 15.29 Est GFR (CKD-EPI)NonAf 13.19 Random Glucose 300 H Calcium 8.9 Magnesium 2.1 COVID-19 ([facility]) Active Medications Generic Name Dose Route Start Last Admin Trade Name Freq PRN Reason Stop Dose Admin Amlodipine Besylate 10 mg 10/31/19 10:00 11/02/19 09:12 Norvasc - PO 10 mg DAILY VINEC Administration Atorvastatin Calcium 20 mg 10/31/19 22:00 11/01/19 21:46 Lipitor - PO 20 mg HS VINCE Administration Benzocaine/Menthol 1 each 10/31/19 19:12 10/31/19 21:54 Cepacol Lozenge - MM 1 each PRN PRN Administration SORE THROAT Budesonide/Formoterol Fumarate 2 puff 10/31/19 10:00 11/02/19 09:20 Symbicort 160/4.5mcg - IH 2 puff BID VINCE Administration Carvedilol 25 mg 10/31/19 10:00 11/02/19 09:12 Coreg - PO 25 mg BID VINCE Administration Duloxetine HCl 20 mg 10/31/19 22:00 11/01/19 21:44 Cymbalta - PO 20 mg HS VINCE Administration Heparin Sodium (Porcine) 5,000 unit 10/30/19 22:00 11/02/19 05:20 Heparin - SQ 5,000 unit TID VINCE Administration Hydroxychloroquine Sulfate 400 mg 11/02/19 10:00 11/02/19 09:30 Plaquenil - PO Not Given DAILY [facility] Ceftriaxone Sodium 1 gm/ 50 mls @ 100 mls/hr 10/31/19 10:00 11/02/19 09:12 Dextrose IVPB 100 mls/hr DAILY VINCE Administration Sodium Chloride 1,000 mls @ 75 mls/hr 11/01/19 14:45 11/01/19 14:53 Normal Saline - IV 75 mls/hr ASDIR VINCE Administration Insulin Aspart 1 vial 11/02/19 13:26 Novolog Vial Sliding Scale - SQ ACHS [facility] Protocol Insulin Aspart 20 units 11/02/19 16:30 Novolog Mix 70/30 Vial SQ BIDAC VINCE Insulin Detemir 30 units 11/02/19 22:00 Levemir Vial SQ BID@0700,2200 [facility] Montelukast Sodium 10 mg 10/31/19 22:00 11/01/19 21:47 Singulair - PO 10 mg HS VINCE Administration Pregabalin 25 mg 10/31/19 06:00 11/02/19 05:20 Lyrica - PO 25 mg TID VINCE Administration ASSESSMENT/PLAN: Patient is a 59 yo obese female with a PMH of uncontrolled IDDM, HTN, CKD, asthma, RA, breast cancer s/p radiation, & fibromyalgia, presented to the ED after a syncopal episode. In ED was found to have a sugar > 600. #Syncope -likely 2/2 dehydration, in setting of hyperglycemia, UTI -no seizure activity, Head CT normal, no neuro deficits, no events on tele, EKG sinus, normal trop/echo -orthostatics negative, fluids already given -PT evaluation -On IV antibiotics for UTI -will correct hyperglycemia #[place] on CKD -likely in setting of hyperglycemia -Renal US revealed no evidence of obstruction -urine studies consistent with tubular injury -Continue Isotonic saline for now -Avoid NSAIDs and IV contrast -will defer starting ACEI/ARB for now -will continue to monitor renal function and electrolytes. -Nephrology (Dr. Rashid) consulted. REcommendations appreciated. #Hyperglycemia, DM type 2 -HbA1c 13.5, will need to optimize glycemic control -Was started on Insulin SLiding scale -On home Basaglar 28u bid -Endocrinology (Dr. Martínez) consulted. Recommendations appreciated -Levemir 30u bid, Novolog 70/30 20u bidac -Insulin sliding scale implemented -[facility] #UTI -Continue IV Ceftriaxone day 3 -Urine Cx normal genital andrey #HTN -Continue Amlodipine 5mg and Coreg 25mg bid -will hold starting ACEI/ARB in setting of [place] #HLD -Continue Lipitor 20mg HS #COPD -Continue home meds Singulair and symbicort #Fibromyalgia -Continue Duloxetine 20mg HS #Rheumatoid arthritis -Continue Plaquenil 400mg daily #FEN -IV NS @75cc/hr -ELectrolytes wnl, routine bmp monitoring -Diabetic, sodium restricted diet #Prophylaxis -Heparin 5000u sq tid #Disposition -full code -continue tele monitoring Visit type - Emergency Visit Emergency Visit: Yes ED Registration Date: 10/30/19 Care time: The patient presented to the Emergency Department on the above date and was hospitalized for further evaluation of their emergent condition. - New Patient This patient is new to me today: No - Critical Care Critical Care patient: No ATTENDING PHYSICIAN STATEMENT I saw and evaluated the patient. I reviewed the resident's note and discussed the case with the resident. I agree with the resident's findings and plan as documented. SUBJECTIVE: OBJECTIVE: ASSESSMENT AND PLAN:
[2019-11-02] MEDS ORDERED: POLYETHYLENE GLYCOL 3350 119 GM BTL PO ONE (14:30)
[2019-11-02] MEDS ORDERED: DOCUSATE SODIUM 100 MG CAPSULE (FP) PO PRN (14:30)
[2019-11-02] MEDS: ACETAMINOPHEN 325 MG TABLET (FP) PO PRN (15:08)
[2019-11-02] MEDS: SODIUM CHLORIDE 1,000 ML IV SCH (15:13)
[2019-11-02] MEDS: INSULIN (NOVOLOG MIX 70/30) 100 UNITS/ML MDV SQ SCH (16:54)
--- NOTE | 2019-11-02 17:31 | PN ---
Progress Note, Physician Chief Complaint: Acute kidney injury History of Present Illness: Seen and examined at the bedside awake and alert has pain in her hips no sob, cp, fever, chills or swelling making urine on IVF - Current Medication List Current Medications: Active Medications Acetaminophen (Tylenol -) 650 mg PO Q6H PRN PRN Reason: Fever Last Admin: 11/02/19 15:08 Dose: 650 mg Documented by: Amlodipine Besylate (Norvasc -) 10 mg PO DAILY [facility] Last Admin: 11/02/19 09:12 Dose: 10 mg Documented by: Atorvastatin Calcium (Lipitor -) 20 mg PO HS [facility] Last Admin: 11/01/19 21:46 Dose: 20 mg Documented by: Benzocaine/Menthol (Cepacol Lozenge -) 1 each MM PRN PRN PRN Reason: SORE THROAT Last Admin: 10/31/19 21:54 Dose: 1 each Documented by: Budesonide/Formoterol Fumarate (Symbicort 160/4.5mcg -) 2 puff IH BID [facility] Last Admin: 11/02/19 09:20 Dose: 2 puff Documented by: Carvedilol (Coreg -) 25 mg PO BID [facility] Last Admin: 11/02/19 09:12 Dose: 25 mg Documented by: Docusate Sodium (Colace -) 100 mg PO BID PRN PRN Reason: CONSTIPATION Last Admin: 11/02/19 15:14 Dose: 100 mg Documented by: Duloxetine HCl (Cymbalta -) 20 mg PO HS [facility] Last Admin: 11/01/19 21:44 Dose: 20 mg Documented by: Heparin Sodium (Porcine) (Heparin -) 5,000 unit SQ TID [facility] Last Admin: 11/02/19 14:09 Dose: 5,000 unit Documented by: Hydroxychloroquine Sulfate (Plaquenil -) 400 mg PO DAILY [facility] Last Admin: 11/02/19 09:30 Dose: Not Given Documented by: Ceftriaxone Sodium 1 gm/ (Dextrose) 50 mls @ 100 mls/hr IVPB DAILY [facility] Last Admin: 11/02/19 09:12 Dose: 100 mls/hr Documented by: Insulin Aspart (Novolog Mix 70/30 Vial) 20 units SQ BIDAC [facility] Last Admin: 11/02/19 16:54 Dose: 20 units Documented by: Insulin Aspart (Novolog Vial Sliding Scale -) 1 vial SQ ACHS [facility]; Protocol Last Admin: 11/02/19 16:50 Dose: 10 units Documented by: Insulin Detemir (Levemir Vial) 30 units SQ BID@0700,2200 [facility] Montelukast Sodium (Singulair -) 10 mg PO [facility] Last Admin: 11/01/19 21:47 Dose: 10 mg Documented by: Pregabalin (Lyrica -) 25 mg PO TID [facility] Last Admin: 11/02/19 14:09 Dose: 25 mg Documented by: Senna (Senna -) 1 tab PO [facility] - Objective Vital Signs: Vital Signs Temperature 98.7 F 11/02/19 14:00 Pulse Rate 69 11/02/19 14:00 Respiratory Rate 11/02/19 14:00 Blood Pressure 156/96 11/02/19 14:00 O2 Sat by Pulse Oximetry (%) 99 11/02/19 09:00 Constitutional: Yes: No Distress Eyes: Yes: Conjunctiva Clear HENT: Yes: Atraumatic Neck: Yes: Supple Cardiovascular: Yes: Regular Rate and Rhythm Respiratory: Yes: Regular Gastrointestinal: Yes: Soft Extremities: No: Cyanosis Edema: No Labs: CBC, BMP 11/02/19 06:05 11/02/19 06:05 INR, PTT INR 1.05 (0.83-1.09) 10/30/19 11:50 Assessment/Plan 59 year old woman with history of CKD stage 4 (baseline Cr ~3), DM, hypertension, Asthma, RA and fibromyalgia who presented from home s/p syncope and found to have hyperglycemia and [place]. 1. Acute kidney injury 2. CKD stage 4 3. Syncope 4. Hyperglycemia w/o DKA 5. DM 6. Hypertension Renal function slowly improving no electrolyte or acid/base disturbance urine studies consistent with tubular injury Renal imaging shows no evidence of obstruction change IVF to hypotonic saline Tele monitoring Continue amlodipine and coreg for hypertension. Would defer starting MAGALY/ARB for now given low eGFR Aovid NSAIDs and IV contrast Trend renal function and electrolytes daily Riley Rashid DO
[2019-11-02] MEDS: SODIUM CHLORIDE 0.45% 1,000 ML IV SCH (18:08)
[2019-11-02 19:23] LABS: BLOOD UREA NITROGEN 28.1 mg/dL (7-18); CALCIUM 9.2 mg/dL (8.5-10.1); CREATININE 3.5 mg/dL (0.55-1.3); POTASSIUM 4.1 mmol/L (3.5-5.1)
[2019-11-02] MEDS: MONTELUKAST NA 10 MG TABLET PO SCH (21:00)
[2019-11-02] MEDS: DULoxetine HCL 20 MG CAPSULE.DR PO SCH (21:00)
[2019-11-02] MEDS: ATORVASTATIN CA 20 MG TABLET (FP) PO SCH (21:00)
[2019-11-02] MEDS: INSULIN (LEVEMIR) 100 UNITS/ML UNITS SQ SCH (21:04)
[2019-11-02] MEDS ORDERED: Insulin (LOG) Aspart 100 UNITS/ML VIAL SQ ONE (21:30)
[2019-11-02] MEDS ORDERED: SENNOSIDES 8.6MG TABLET (FP) PO SCH (22:00)
[2019-11-03] MEDS: PREGABALIN 25 MG CAPSULE PO SCH ×2 (06:25→13:33)
[2019-11-03] MEDS: HEPARIN NA (PORCINE) 5,000 UNITS/ML 1ML VIAL SQ SCH ×2 (06:25→13:33)
[2019-11-03] MEDS: INSULIN (LEVEMIR) 100 UNITS/ML UNITS SQ SCH (06:32)
[2019-11-03] MEDS: INSULIN SLIDING SCALE (NOVOLOG) 1 VIAL SQ SCH ×2 (06:34→12:52)
[2019-11-03] MEDS: INSULIN (NOVOLOG MIX 70/30) 100 UNITS/ML MDV SQ SCH (06:38)
[2019-11-03 08:15] LABS: HEMATOCRIT 27.5 % (32.4-45.2); HEMOGLOBIN 9.1 GM/dL (10.7-15.3); MCH 26.7 pg (25.7-33.7); MEAN CELL VOLUME 80.8 fl (80-96); MEAN PLT VOLUME 8.8 fl (7.5-11.1); PLATELET COUNT 180 K/MM3 (134-434); RBC 3.41 M/mm3 (3.60-5.2); RDW 13.6 % (11.6-15.6); WHITE BLOOD COUNT 6.8 K/mm3 (4.0-10.0)
[2019-11-03] MEDS ORDERED: DEXTROSE 5%-WATER - 50 ML IVPB ONE (09:16)
[2019-11-03] MEDS ORDERED: cefTRIAXone SODIUM 1 GM VIAL ONE (09:16)
[2019-11-03] MEDS: amLODIPine BESYLATE 10 MG TABLET (FP) PO SCH (09:17)
[2019-11-03] MEDS: CARVEDILOL 12.5 MG TABLET (FP) PO SCH (09:18)
[2019-11-03] MEDS: BUDESONIDE/FORMETEROL FUMARATE 160/4.5 mcg INHALER IH SCH (09:18)
[2019-11-03] MEDS: HYDROXYCHLOROQUINE SO4 200 MG TABLET (FP) PO SCH (09:18)
[2019-11-03] MEDS: SODIUM CHLORIDE 0.45% 1,000 ML IV SCH (09:19)
[2019-11-03 09:32] VITALS: PULSE 65
[2019-11-03] MEDS ORDERED: CEPHALEXIN MONOHYDRATE 500 MG CAPSULE (UD) PO SCH (10:30)
[2019-11-03 10:40] LABS: BLOOD UREA NITROGEN 26.3 mg/dL (7-18); CALCIUM 8.9 mg/dL (8.5-10.1); CREATININE 3.4 mg/dL (0.55-1.3); POTASSIUM 3.9 mmol/L (3.5-5.1)
[2019-11-03] MEDS ORDERED: INSULIN SLIDING SCALE (NOVOLOG) 1 VIAL SQ SCH ×2 (11:18→11:30)
[2019-11-03] MEDS: ACETAMINOPHEN 325 MG TABLET (FP) PO PRN (11:38)
--- NOTE | 2019-11-03 12:58 | PN ---
Teaching Attending Note Name of Resident: Silvia Lopez ATTENDING PHYSICIAN STATEMENT I saw and evaluated the patient. I reviewed the resident's note and discussed the case with the resident. I agree with the resident's findings and plan as documented. SUBJECTIVE: Patient seen and examined at bedside, admitted for HHS, volume depletion, [place] on CKD 2/2 medication non-compliance. Needs Endocrine referral for education and insulin management. VSS. OBJECTIVE: GENERAL: ambulating around unit, semi-formed stool coming down leg. HEAD: Normal with no signs of trauma. EYES: PERRL, extraocular movements intact, conjunctiva clear. ENT: Ears normal, nares patent, dry mucus membranes, poor dentition NECK: Trachea midline, full range of motion LUNGS: Clear to auscultation bilaterally, no wheezes HEART: Regular rate and rhythm, no murmur ABDOMEN: Soft, obese, nontender, nondistended, normoactive bowel sounds NEUROLOGICAL: Cranial nerves II through XII grossly intact. Normal speech. No tremors noted. PSYCH: Normal mood, normal affect. Vital Signs - 24 hr 11/02/19 11/02/19 11/02/19 14:00 18:00 19:05 Temperature 98.7 F 98.3 F Pulse Rate 69 62 63 Respiratory 20 18 18 Rate Blood Pressure 156/96 176/76 H 159/69 O2 Sat by Pulse Oximetry (%) 11/02/19 11/02/19 11/03/19 21:00 22:07 02:00 Temperature 97.8 F 98.7 F Pulse Rate 58 L 62 Respiratory 18 19 Rate Blood Pressure 138/60 135/52 L O2 Sat by Pulse 96 Oximetry (%) 11/03/19 11/03/19 11/03/19 05:55 09:00 09:31 Temperature 98.4 F 98.3 F Pulse Rate 66 65 Respiratory 20 18 Rate Blood Pressure 146/58 L 154/78 O2 Sat by Pulse 98 Oximetry (%) Microbiology 10/30/19 18:50 Urine - Urine Clean Catch Urine Culture - Final Strep Agalactiae Group B Normal Urogenital Idalmis Laboratory Results - last 24 hr 11/01/19 11/02/19 11/02/19 02:00 18:20 20:55 WBC RBC Hgb Hct MCV MCH MCHC RDW Plt Count MPV Sodium 141 Potassium 4.1 Chloride 110 H Carbon Dioxide 22 Anion Gap 9 BUN 28.1 H Creatinine 3.5 H Est GFR (CKD-EPI)AfAm 15.81 Est GFR (CKD-EPI)NonAf 13.64 POC Glucometer 220 Random Glucose 300 H Calcium 9.2 Phosphorus Magnesium Ur Random Creatinine 32.3 Ur Random Microalbumin 1444.7 Microalb/Creat Ratio 4473 H 11/03/19 11/03/19 11/03/19 06:28 07:15 07:15 WBC 6.8 RBC 3.41 L Hgb 9.1 L Hct 27.5 L MCV 80.8 MCH 26.7 MCHC 33.0 RDW 13.6 Plt Count 180 MPV 8.8 Sodium 143 Potassium 3.9 Chloride 114 H Carbon Dioxide 23 Anion Gap 6 L BUN 26.3 H Creatinine 3.4 H Est GFR (CKD-EPI)AfAm 16.38 Est GFR (CKD-EPI)NonAf 14.13 POC Glucometer 103 Random Glucose 107 H Calcium 8.9 Phosphorus 4.0 Magnesium 2.0 Ur Random Creatinine Ur Random Microalbumin Microalb/Creat Ratio 11/03/19 11:36 WBC RBC Hgb Hct MCV MCH MCHC RDW Plt Count MPV Sodium Potassium Chloride Carbon Dioxide Anion Gap BUN Creatinine Est GFR (CKD-EPI)AfAm Est GFR (CKD-EPI)NonAf POC Glucometer 201 Random Glucose Calcium Phosphorus Magnesium Ur Random Creatinine Ur Random Microalbumin Microalb/Creat Ratio Home Medications Medication Instructions Recorded Carvedilol 25 mg PO BID 10/22/14 Ergocalciferol (Vitamin D2) 50,000 unit PO WEEKLY 03/29/19 [Vitamin D2] Pregabalin [Lyrica -] 25 mg PO TID #90 capsule MDD 75mg 03/31/19 Amlodipine Besylate [Norvasc -] 10 mg PO DAILY #30 tablet 06/04/19 Atorvastatin Ca [Lipitor] 20 mg PO HS #30 tablet 06/04/19 Budesonide/Formeterol Fumarate 2 inh PO BID #1 inhaler 06/04/19 [SYMBICORT 160/4.5mcg -] Duloxetine HCl 20 mg PO HS #30 capsule. 06/04/19 Hydroxychloroquine Sulfate 400 mg PO DAILY #30 tablet 06/04/19 [Plaquenil] Insulin (LOG) Aspart [NovoLOG -] See Protocol SQ AC #1 vial 06/04/19 Insulin Glargine,Hum.rec.anlog 25 unit SQ HS #1 insuln.pen 06/04/19 [Basaglar Kwikpen U-100] Montelukast Na [Singulair -] 10 mg PO HS #30 tablet 06/04/19 Current Medications Generic Name Dose Route Start Last Admin Trade Name Freq PRN Reason Stop Dose Admin Acetaminophen 650 mg 11/02/19 14:36 11/03/19 11:38 Tylenol - PO 650 mg Q6H PRN Administration Fever Amlodipine Besylate 10 mg 10/31/19 10:00 11/03/19 09:17 Norvasc - PO 10 mg DAILY [facility] Administration Atorvastatin Calcium 20 mg 10/31/19 22:00 11/02/19 21:00 Lipitor - PO 20 mg HS [facility] Administration Benzocaine/Menthol 1 each 10/31/19 19:12 10/31/19 21:54 Cepacol Lozenge - MM 1 each PRN PRN Administration SORE THROAT Budesonide/Formoterol Fumarate 2 puff 10/31/19 10:00 11/03/19 09:18 Symbicort 160/4.5mcg - IH 2 puff BID [facility] Administration Carvedilol 25 mg 10/31/19 10:00 11/03/19 09:18 Coreg - PO 25 mg BID [facility] Administration Cephalexin HCl 500 mg 11/03/19 10:30 Keflex - PO BID [facility] Docusate Sodium 100 mg 11/02/19 14:30 11/02/19 15:14 Colace - PO 100 mg BID PRN Administration CONSTIPATION Duloxetine HCl 20 mg 10/31/19 22:00 11/02/19 21:00 Cymbalta - PO 20 mg HS [facility] Administration Heparin Sodium (Porcine) 5,000 unit 10/30/19 22:00 11/03/19 06:25 Heparin - SQ 5,000 unit TID [facility] Administration Hydroxychloroquine Sulfate 400 mg 11/02/19 10:00 11/03/19 09:18 Plaquenil - PO Not Given DAILY [facility] Sodium Chloride 1,000 mls @ 75 mls/hr 11/02/19 17:30 11/03/19 09:19 1/2 Normal Saline IV 75 mls/hr ASDIR [facility] Administration Insulin Aspart 15 units 11/03/19 16:30 Novolog Mix 70/30 Vial SQ BIDAC [facility] Insulin Aspart 1 vial 11/03/19 11:30 11/03/19 11:38 Novolog Vial Sliding Scale - SQ 6 units ACHS [facility] Administration Protocol Insulin Detemir 10 units 11/03/19 22:00 Levemir Vial SQ BID@0700,2200 [facility] Montelukast Sodium 10 mg 10/31/19 22:00 11/02/19 21:00 Singulair - PO 10 mg HS [facility] Administration Pregabalin 25 mg 10/31/19 06:00 11/03/19 06:25 Lyrica - PO 25 mg TID [facility] Administration Senna 1 tab 11/02/19 22:00 11/02/19 21:01 Senna - PO 1 tab HS [facility] Administration ASSESSMENT: Uncontrolled hyperglycemia 2/2 insulin non-compliance [place] on CKD 4 External hemorrhoids HTN Asthma Fibromyalgia GERD RA HLD Plan: Reinforce med compliance, insulin management Avoid volume depletion due to declining renal function, hold Lasix BP management Will need subcutaneous glucometer for improved sugar monitoring and evaluation for insulin pump due to high insulin resistance DVT ppx: Ambulation, DC AC d/t bleeding external hemorrhoids
--- NOTE | 2019-11-03 13:21 | PN ---
Teaching Attending Note Name of Resident: Silvia Lopez ATTENDING PHYSICIAN STATEMENT I saw and evaluated the patient. I reviewed the resident's note and discussed the case with the resident. I agree with the resident's findings and plan as documented. SUBJECTIVE: Patient seen and examined at bedside, adjusted insulin regimen, denies complaints. VSS. OBJECTIVE: GENERAL: ambulating around unit, semi-formed stool coming down leg. HEAD: Normal with no signs of trauma. EYES: PERRL, extraocular movements intact, conjunctiva clear. ENT: Ears normal, nares patent, dry mucus membranes, poor dentition NECK: Trachea midline, full range of motion LUNGS: Clear to auscultation bilaterally, no wheezes HEART: Regular rate and rhythm, no murmur ABDOMEN: Soft, obese, nontender, nondistended, normoactive bowel sounds NEUROLOGICAL: Cranial nerves II through XII grossly intact. Normal speech. No tremors noted. PSYCH: Normal mood, normal affect. Rectal exam: see resident note. Vital Signs - 24 hr 11/02/19 11/02/19 11/02/19 14:00 18:00 19:05 Temperature 98.7 F 98.3 F Pulse Rate 69 62 63 Respiratory 20 18 18 Rate Blood Pressure 156/96 176/76 H 159/69 O2 Sat by Pulse Oximetry (%) 11/02/19 11/02/19 11/03/19 21:00 22:07 02:00 Temperature 97.8 F 98.7 F Pulse Rate 58 L 62 Respiratory 18 19 Rate Blood Pressure 138/60 135/52 L O2 Sat by Pulse 96 Oximetry (%) 11/03/19 11/03/19 11/03/19 05:55 09:00 09:31 Temperature 98.4 F 98.3 F Pulse Rate 66 65 Respiratory 20 18 Rate Blood Pressure 146/58 L 154/78 O2 Sat by Pulse 98 Oximetry (%) Microbiology 10/30/19 18:50 Urine - Urine Clean Catch Urine Culture - Final Strep Agalactiae Group B Normal Urogenital Idalmis Laboratory Results - last 24 hr 11/01/19 11/02/19 11/02/19 02:00 18:20 20:55 WBC RBC Hgb Hct MCV MCH MCHC RDW Plt Count MPV Sodium 141 Potassium 4.1 Chloride 110 H Carbon Dioxide 22 Anion Gap 9 BUN 28.1 H Creatinine 3.5 H Est GFR (CKD-EPI)AfAm 15.81 Est GFR (CKD-EPI)NonAf 13.64 POC Glucometer 220 Random Glucose 300 H Calcium 9.2 Phosphorus Magnesium Ur Random Creatinine 32.3 Ur Random Microalbumin 1444.7 Microalb/Creat Ratio 4473 H 11/03/19 11/03/19 11/03/19 06:28 07:15 07:15 WBC 6.8 RBC 3.41 L Hgb 9.1 L Hct 27.5 L MCV 80.8 MCH 26.7 MCHC 33.0 RDW 13.6 Plt Count 180 MPV 8.8 Sodium 143 Potassium 3.9 Chloride 114 H Carbon Dioxide 23 Anion Gap 6 L BUN 26.3 H Creatinine 3.4 H Est GFR (CKD-EPI)AfAm 16.38 Est GFR (CKD-EPI)NonAf 14.13 POC Glucometer 103 Random Glucose 107 H Calcium 8.9 Phosphorus 4.0 Magnesium 2.0 Ur Random Creatinine Ur Random Microalbumin Microalb/Creat Ratio 11/03/19 11:36 WBC RBC Hgb Hct MCV MCH MCHC RDW Plt Count MPV Sodium Potassium Chloride Carbon Dioxide Anion Gap BUN Creatinine Est GFR (CKD-EPI)AfAm Est GFR (CKD-EPI)NonAf POC Glucometer 201 Random Glucose Calcium Phosphorus Magnesium Ur Random Creatinine Ur Random Microalbumin Microalb/Creat Ratio Home Medications Medication Instructions Recorded Carvedilol 25 mg PO BID 10/22/14 Ergocalciferol (Vitamin D2) 50,000 unit PO WEEKLY 03/29/19 [Vitamin D2] Pregabalin [Lyrica -] 25 mg PO TID #90 capsule MDD 75mg 03/31/19 Amlodipine Besylate [Norvasc -] 10 mg PO DAILY #30 tablet 06/04/19 Atorvastatin Ca [Lipitor] 20 mg PO HS #30 tablet 06/04/19 Budesonide/Formeterol Fumarate 2 inh PO BID #1 inhaler 06/04/19 [SYMBICORT 160/4.5mcg -] Duloxetine HCl 20 mg PO HS #30 capsule. 06/04/19 Hydroxychloroquine Sulfate 400 mg PO DAILY #30 tablet 06/04/19 [Plaquenil] Insulin (LOG) Aspart [NovoLOG -] See Protocol SQ AC #1 vial 06/04/19 Insulin Glargine,Hum.rec.anlog 25 unit SQ HS #1 insuln.pen 06/04/19 [Basaglar Kwikpen U-100] Montelukast Na [Singulair -] 10 mg PO HS #30 tablet 06/04/19 Current Medications Generic Name Dose Route Start Last Admin Trade Name Freq PRN Reason Stop Dose Admin Acetaminophen 650 mg 11/02/19 14:36 11/03/19 11:38 Tylenol - PO 650 mg Q6H PRN Administration Fever Amlodipine Besylate 10 mg 10/31/19 10:00 11/03/19 09:17 Norvasc - PO 10 mg DAILY [facility] Administration Atorvastatin Calcium 20 mg 10/31/19 22:00 11/02/19 21:00 Lipitor - PO 20 mg HS [facility] Administration Benzocaine/Menthol 1 each 10/31/19 19:12 10/31/19 21:54 Cepacol Lozenge - MM 1 each PRN PRN Administration SORE THROAT Budesonide/Formoterol Fumarate 2 puff 10/31/19 10:00 11/03/19 09:18 Symbicort 160/4.5mcg - IH 2 puff BID [facility] Administration Carvedilol 25 mg 10/31/19 10:00 11/03/19 09:18 Coreg - PO 25 mg BID [facility] Administration Cephalexin HCl 500 mg 11/03/19 10:30 Keflex - PO BID [facility] Docusate Sodium 100 mg 11/02/19 14:30 11/02/19 15:14 Colace - PO 100 mg BID PRN Administration CONSTIPATION Duloxetine HCl 20 mg 10/31/19 22:00 11/02/19 21:00 Cymbalta - PO 20 mg HS [facility] Administration Heparin Sodium (Porcine) 5,000 unit 10/30/19 22:00 11/03/19 06:25 Heparin - SQ 5,000 unit TID [facility] Administration Hydroxychloroquine Sulfate 400 mg 11/02/19 10:00 11/03/19 09:18 Plaquenil - PO Not Given DAILY [facility] Sodium Chloride 1,000 mls @ 75 mls/hr 11/02/19 17:30 11/03/19 09:19 1/2 Normal Saline IV 75 mls/hr ASDIR [facility] Administration Insulin Aspart 15 units 11/03/19 16:30 Novolog Mix 70/30 Vial SQ BIDAC [facility] Insulin Aspart 1 vial 07/15/20 11:30 11/03/19 11:38 Novolog Vial Sliding Scale - SQ 6 units ACHS [facility] Administration Protocol Insulin Detemir 10 units 11/03/19 22:00 Levemir Vial SQ BID@0700,2200 [facility] Montelukast Sodium 10 mg 10/31/19 22:00 11/02/19 21:00 Singulair - PO 10 mg HS [facility] Administration Pregabalin 25 mg 10/31/19 06:00 11/03/19 06:25 Lyrica - PO 25 mg TID [facility] Administration Senna 1 tab 11/02/19 22:00 11/02/19 21:01 Senna - PO 1 tab HS [facility] Administration ASSESSMENT: Uncontrolled hyperglycemia 2/2 insulin non-compliance [place] on CKD 4 External hemorrhoids HTN Asthma Fibromyalgia GERD RA HLD Plan: Switch fluids to 1/2 NS, monitor renal function, no indication for MANAGER INPATIENT at this time, holding MAGALY/ARB/nephrotoxins Refusing Plaquenil d/t to concerns for retinal Avoid volume depletion due to declining renal function, hold Lasix BP management Will need subcutaneous glucometer for improved sugar monitoring and evaluation for insulin pump due to high insulin resistance DVT ppx: Lovenox sc
[2019-11-03 13:39] VITALS: BP 154/64; TEMP 98.4
--- NOTE | 2019-11-03 13:49 | DS ---
Physical Exam: SUBJECTIVE: Patient seen and examined OBJECTIVE: Vital Signs Temperature 98.4 F 11/03/19 13:38 Pulse Rate 65 11/03/19 13:38 Respiratory Rate 18 11/03/19 13:38 Blood Pressure 154/64 11/03/19 13:38 O2 Sat by Pulse Oximetry (%) 98 11/03/19 09:00 PHYSICAL EXAM GENERAL: The patient is awake, alert, and fully oriented, in no acute distress. HEAD: Normal with no signs of trauma. EYES:PERRLA, EOMI, sclera anicteric, conjunctiva clear. ENT: dry mucous membranes. NECK: supple. LUNGS: Breath sounds equal, clear to auscultation bilaterally HEART: Regular rate and rhythm, S1, S2 without murmur ABDOMEN: Soft, nontender, nondistended, normoactive bowel sounds KAREN: +hemorrhoids, no anal fissures, normal rectal tone, no blood in examining finger. EXTREMITIES: 2+ pulses, warm, well-perfused, no edema. NEUROLOGICAL: Cranial nerves II through XII grossly intact. Normal speech PSYCH: Normal mood, normal affect. SKIN: Warm, dry, normal turgor LABS Laboratory Results - last 24 hr 11/01/19 11/02/19 11/02/19 02:00 18:20 20:55 WBC RBC Hgb Hct MCV MCH MCHC RDW Plt Count MPV Sodium 141 Potassium 4.1 Chloride 110 H Carbon Dioxide 22 Anion Gap 9 BUN 28.1 H Creatinine 3.5 H Est GFR (CKD-EPI)AfAm 15.81 Est GFR (CKD-EPI)NonAf 13.64 POC Glucometer 220 Random Glucose 300 H Calcium 9.2 Phosphorus Magnesium Ur Random Creatinine 32.3 Ur Random Microalbumin 1444.7 Microalb/Creat Ratio 4473 H 11/03/19 11/03/19 11/03/19 06:28 07:15 07:15 WBC 6.8 RBC 3.41 L Hgb 9.1 L Hct 27.5 L MCV 80.8 MCH 26.7 MCHC 33.0 RDW 13.6 Plt Count 180 MPV 8.8 Sodium 143 Potassium 3.9 Chloride 114 H Carbon Dioxide 23 Anion Gap 6 L BUN 26.3 H Creatinine 3.4 H Est GFR (CKD-EPI)AfAm 16.38 Est GFR (CKD-EPI)NonAf 14.13 POC Glucometer 103 Random Glucose 107 H Calcium 8.9 Phosphorus 4.0 Magnesium 2.0 Ur Random Creatinine Ur Random Microalbumin Microalb/Creat Ratio 11/03/19 11:36 WBC RBC Hgb Hct MCV MCH MCHC RDW Plt Count MPV Sodium Potassium Chloride Carbon Dioxide Anion Gap BUN Creatinine Est GFR (CKD-EPI)AfAm Est GFR (CKD-EPI)NonAf POC Glucometer 201 Random Glucose Calcium Phosphorus Magnesium Ur Random Creatinine Ur Random Microalbumin Microalb/Creat Ratio HOSPITAL COURSE: Date of Admission:10/30/19 Date of Discharge: 11/03/19 Patient is a 59 yo obese female with a PMH of uncontrolled IDDM, HTN, CKD, asthma, RA, breast cancer s/p radiation, & fibromyalgia, presented to the ED after a syncopal episode. In ED was found to have a sugar > 600. #Syncope -likely 2/2 dehydration, in setting of hyperglycemia, UTI -no seizure activity, Head CT normal, no neuro deficits, no events on tele, EKG sinus, normal trop/echo -orthostatics negative, fluids already given -PT evaluation -On IV antibiotics for UTI -will correct hyperglycemia #[place] on CKD -likely in setting of hyperglycemia -Renal US revealed no evidence of obstruction -urine studies consistent with tubular injury -Avoid NSAIDs and IV contrast -will defer starting ACEI/ARB for now -Nephrology (Dr. Rashid) consulted. REcommendations appreciated. #Hyperglycemia, DM type 2 -HbA1c 13 -Endocrinology (Dr. Martínez) consulted. Recommendations appreciated -Levemir 30u bid, Novolog 70/30 20u bidac -to follow up with Dr. Martínez for further management #Hemorrhoids -will discharge with stool softeners -Hydrocortisone cream -follow up with surgery on discharge. #UTI -Completed 5 doses of ceftriaxone, will continue 2 more days of keflex -Urine Cx normal genital andrey #HTN -Continue Amlodipine 5mg and Coreg 25mg bid -will hold starting ACEI/ARB in setting of [place] #HLD -Continue Lipitor 20mg HS #COPD -Continue home meds Singulair and symbicort #Fibromyalgia -Continue Duloxetine 20mg HS #Rheumatoid arthritis -Continue Plaquenil 400mg daily Minutes to complete discharge: 37 Discharge Summary Problems reviewed: Yes Reason For Visit: HYPERGLYCEMIA SYNCOPE/ ACUTE KIDNEY INJURY Current Active Problems Acute kidney injury superimposed on CKD (Acute) Acute kidney injury superimposed on chronic kidney disease (Acute) Fibromyalgia (Acute) Hyperglycemia (Acute) Rheumatoid arthritis (Acute) Syncope (Acute) Transient loss of consciousness (Acute) Type 2 diabetes mellitus with nephropathy (Acute) UTI (urinary tract infection) (Acute) Condition: Improved - Instructions Diet, Activity, Other Instructions: Your visit You were admitted in the hospital because you passed out. Your blood sugar was very high. It likely caused you to lose so much fluid in your urine and you became dehydrated. You were also noted to have worsening of your kidney function. It is very important to have good control of your blood sugars. Please follow up with the content producer, Dr. Martínez, for further management of your diabetes. Medications Please take the following medications as prescribed: 1. Continue Insulin Basaglar 30units twice a day before breakfast and at bedtime. 2. Insulin Novolog 70/30 20units twice a day with breakfast and dinner. 3. Keflex 500mg tab, 1 tab twice a day for 2 more days. Please continue your home medications. Follow up Please follow up with your primary care doctor in 1 week. You need to have a repeat blood work to check your kidney function in 1 week. Please follow up with the content producer (Dr. Martínez) in 1-2 weeks. Please call the office to schedule an appointment. Please follow up with the melter supervisor open hearth furnace (Dr. Rashid) in 1 week. Additional info Please call 911 or go to the ED if with any worsening fevers, chills, headache, dizziness, chest pain, shortness of breath, belly pain or any new concerns noted. Referrals: Timothy Martínez MD [Staff Physician] - 1 Week Riley Rashid MD [Staff Physician] - 1 Week Javier Nolasco MD [Staff Physician] - (hemorrhoids) Disposition: HOME - Home Medications Comprehensive Discharge Medication List: Ambulatory Orders Carvedilol 25 mg PO BID 10/22/14 Ergocalciferol (Vitamin D2) [Vitamin D2] 50,000 unit PO WEEKLY 03/29/19 Pregabalin [Lyrica -] 25 mg PO TID #90 capsule MDD 75mg 03/31/19 Amlodipine Besylate [Norvasc -] 10 mg PO DAILY #30 tablet 06/04/19 Atorvastatin Ca [Lipitor] 20 mg PO HS #30 tablet 06/04/19 Budesonide/Formeterol Fumarate [SYMBICORT 160/4.5mcg -] 2 inh PO BID #1 inhaler 06/04/19 Duloxetine HCl 20 mg PO HS #30 capsule. 06/04/19 Hydroxychloroquine Sulfate [Plaquenil] 400 mg PO DAILY #30 tablet 06/04/19 Montelukast Na [Singulair -] 10 mg PO HS #30 tablet 06/04/19 Cephalexin Monohydrate [Keflex -] 500 mg PO BID #4 capsule 11/03/19 Docusate Sodium [Colace -] 100 mg PO BID PRN #30 capsule 11/03/19 Hydrocortisone 0.5% Cream [Hytone 0.5% Cream -] 1 applic TP DAILY #1 tube 11/03/19 Insulin (Novolog 70/30) [Novolog Mix 70/30 Vial -] 20 units SQ BIDAC #1 units 11/03/19 Insulin Glargine,Hum.rec.anlog [Basaglar Kwikpen U-100] 30 unit SQ BID #1 insuln.pen 11/03/19 This patient is new to me today: No Emergency Visit: Yes ED Registration Date: 10/30/19 Care time: The patient presented to the Emergency Department on the above date and was hospitalized for further evaluation of their emergent condition. Critical Care patient: No - Discharge Referral Referred to [facility] Med P.C.: No ATTENDING PHYSICIAN STATEMENT I saw and evaluated the patient. I reviewed the resident's note and discussed the case with the resident. I agree with the resident's findings and plan as documented. SUBJECTIVE: OBJECTIVE: ASSESSMENT AND PLAN:
--- NOTE | 2019-11-03 15:56 | PN ---
Progress Note, Physician Chief Complaint: Acute kidney injury History of Present Illness: Seen and examined at the bedside awake and alert has no acute complaints no sob, cp, fever, chills or swelling making urine - Objective Vital Signs: Vital Signs Temperature 98.4 F 11/03/19 13:38 Pulse Rate 65 11/03/19 13:38 Respiratory Rate 18 11/03/19 13:38 Blood Pressure 154/64 11/03/19 13:38 O2 Sat by Pulse Oximetry (%) 98 11/03/19 09:00 Constitutional: Yes: No Distress, Calm HENT: Yes: Atraumatic Neck: Yes: Supple Cardiovascular: Yes: Regular Rate and Rhythm Respiratory: Yes: Regular Gastrointestinal: Yes: Soft Edema: No Neurological: Yes: Alert, Oriented Labs: CBC, BMP 11/03/19 07:15 11/03/19 07:15 INR, PTT INR 1.05 (0.83-1.09) 10/30/19 11:50 Assessment/Plan 59 year old woman with history of CKD stage 4 (baseline Cr ~3), DM, hypertension, Asthma, RA and fibromyalgia who presented from home s/p syncope and found to have hyperglycemia and [place]. 1. Acute kidney injury 2. CKD stage 4 3. Syncope 4. Hyperglycemia w/o DKA 5. DM 6. Hypertension Renal function stable no electrolyte or acid/base disturbance urine studies consistent with tubular injury Renal imaging shows no evidence of obstruction off IVF, tolerated diet Tele monitoring Continue amlodipine and coreg for hypertension. Would defer starting MAGALY/ARB for now given low eGFR Aovid NSAIDs and IV contrast stable for discharge, can follow up with primary director ship as an outpatient Riley Rashid DO
[2019-11-03] MEDS ORDERED: INSULIN (NOVOLOG MIX 70/30) 100 UNITS/ML MDV SQ SCH (16:30)
[2019-11-03] MEDS ORDERED: INSULIN (LEVEMIR) 100 UNITS/ML UNITS SQ SCH (22:00)
== END 2019-11-03 15:40 | disposition home or self-care (01) | DRG 469 ==
LOC: JER 15:14 → JERBED 16:54 → J4S 21:55
PROVIDERS: ADMIT Internal Medicine
DX: N17.9 Acute kidney failure, unspecified (principal); E11.65 Type 2 diabetes mellitus with hyperglycemia; M06.9 Rheumatoid arthritis, unspecified; C50.919 Malignant neoplasm of unspecified site of unspecified female breast; M79.7 Fibromyalgia; J45.909 Unspecified asthma, uncomplicated; I12.9 Hypertensive chronic kidney disease with stage 1 through stage 4 chronic kidney disease, or unspecified chronic kidney disease; E11.22 Type 2 diabetes mellitus with diabetic chronic kidney disease; N18.4 Chronic kidney disease, stage 4 (severe); N39.0 Urinary tract infection, site not specified; E78.00 Pure hypercholesterolemia, unspecified; R55 Syncope and collapse; K21.9 Gastro-esophageal reflux disease without esophagitis; K64.4 Residual hemorrhoidal skin tags; Z91.19 Patient's noncompliance with other medical treatment and regimen
CPT/HCPCS: 36415; 70450-TC; 71045-TC-FY; 72125-TC; 74176-TC; 76775-TC; 80048; 80053; 80061; 81003; 82010; 82043; 82550; 82565; 82570; 82803; 82947; 82962; 83036; 83721; 83735; 84100; 84156; 84300; 84484; 84540; 85025; 85027; 85610; 87077; 87086; 87205; 93005; 93010; 93306-TC; 97116-GP; 97161-GP; 99285-25; J0131; J1644; U0003